=== PATIENT | male | born 1940 | race Caucasian/White ===

== ENCOUNTER → 2017-09-18 | Outpatient (CLI) | payer OTHER ==
[~2017-09-18] MED LIST: ASCO250T4 PO; CICL160A INH; CLC100X PO; CLTP PO; DTR/5 PO; FLM4 PO; IPRA17AE2 INH; LOSA1TAB PO; MELO7.5T5 PO; MULT-506 PO; PANT1TAB3 PO; POTA1080 PO; PSYL55.43 PO; SILD100T PO; TRAM-10 PO
--- NOTE | 2017-09-18 11:55 | DIAGNOSTIC IMAGING REPORT ---
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 FINDINGS: Bilateral renal calcifications. No change compared to the prior study. Multiple prosthetic calcifications also unchanged. No significant paravertebral calcifications. IMPRESSION: Bilateral nephrocalcinosis. No change from the prior exam. The above report was generated using voice recognition software. It may contain grammatical, syntax or spelling errors. Electronically signed by: Vern Cedillo M.D. 09/18/2017 11:53 AM Dictated Date/Time: 09/18/2017 11:52 AM
[2017-09-18 12:26] LABS: BLOOD UREA NITROGEN 17 mg/dl (7-18); BUN/CREATININE RATIO 16.6 (10-20); CREATININE 1.01 mg/dl (0.60-1.40)
[2017-09-18 12:30] LABS: PROSTATE SPECIFIC ANTIGEN 0.366 ng/ml (0.000-4.000)
== END | disposition home or self-care (01) ==
LOC: C.RAD 11:11
PROVIDERS: ATTEND Urology
DX: N20.0 Calculus of kidney (principal)

== ENCOUNTER 2017-10-13 09:00 | Emergency (ER) | payer OTHER ==
[~2017-10-13] VITALS: Ht 177.8 cm; Wt 84.8 kg
[2017-10-13 09:04] VITALS: TEMP 36.7; Ht 177.8 cm; Wt 84.8 kg
[2017-10-13] MEDS ORDERED: ONDANSETRON INJ 2 MG/ML 2 ML VIAL IV STA (09:42)
[2017-10-13] MEDS ORDERED: MoRPHine SULFATE 10 MG/ML CARP/VIAL IV STA (09:42)
[2017-10-13] MEDS ORDERED: SODIUM CHLORIDE 0.9% 500ML 500 ML IV STA (09:42)
[2017-10-13] MEDS ORDERED: VALA1TAB31 PO (09:51)
[2017-10-13] MEDS ORDERED: ADVIN25/60 INH (09:51)
[2017-10-13] MEDS ORDERED: PRS5 PO (09:51)
[2017-10-13] MEDS ORDERED: PRLSR20 PO (09:51)
[2017-10-13 10:32] LABS: BASO % 0.2 %; BASO ABS # 0.02 K/uL (0-0.2); EOS % 0.2 %; EOS ABS # 0.02 K/uL (0-0.5); HEMATOCRIT 48.1 % (42-52); HEMOGLOBIN 16.7 g/dL (14.0-18.0); IG# 0.03 K/uL (0.00-0.02); LYMPH % 14.2 %; LYMPH ABS # 1.36 K/uL (1.2-3.4); MEAN CELL VOLUME 96.8 fL (80-100); MEAN CORPUSCULAR HEMOGLOBIN 33.6 pg (25-34); MEAN CORPUSCULAR HGB CONC 34.7 g/dl (32-36); MEAN PLATELET VOLUME 10.9 fL (7.4-10.4); MONO % 7.4 %; MONO ABS # 0.71 K/uL (0.11-0.59); NEUT % 77.7 %; NEUT ABS # 7.47 K/uL (1.4-6.5); PLATELET COUNT 159 K/uL (130-400); RED CELL DISTRIBUTION WIDTH CV 13.6 % (11.5-14.5); RED CELL DISTRIBUTION WIDTH SD 48.6 fL (36.4-46.3); WHITE BLOOD COUNT 9.61 K/uL (4.8-10.8)
[2017-10-13 10:52] LABS: ALBUMIN 3.6 gm/dl (3.4-5.0); CALCIUM 8.8 mg/dl (8.5-10.1); CREATININE 1.05 mg/dl (0.60-1.40)
[2017-10-13 10:55] LABS: TOTAL PROTEIN 6.9 gm/dl (6.4-8.2)
--- NOTE | 2017-10-13 10:55 | DIAGNOSTIC IMAGING REPORT ---
CT OF THE ABDOMEN AND PELVIS WITHOUT CONTRAST, STONE PROTOCOL CLINICAL HISTORY: Severe left flank pain. COMPARISON STUDY: CT of the abdomen and pelvis January 05, 2016 and KUB September 18, 2017. TECHNIQUE: Helical axial images of the abdomen and pelvis were obtained without IV or oral contrast according to renal stone protocol. A dose lowering technique was utilized adhering to the principles of ALARA. FINDINGS: A 7 mm x 6 mm distal left ureteral calculus results in moderate left hydroureteronephrosis. This calculus is located 4.5 cm proximal to the left ureterovesical junction. There are no additional ureteral calculi. There are numerous bilateral renal calculi. The largest of these is a 1.2 cm right renal calculus. There is moderate left perinephric infiltration due to the obstruction. Visualized portions of the lower lungs demonstrate moderate emphysema. A few subpleural nodules are unchanged from earlier exams. These are benign given stability. Unenhanced images of the liver, spleen, adrenal glands and pancreas are unremarkable. There is no biliary ductal dilatation status post cholecystectomy. There is colonic diverticulosis without evidence for acute diverticulitis. No suspicious osseous lesions are present. Multilevel degenerative changes within the lumbar spine are noted. There are multiple old lower thoracic and upper lumbar spine compression deformities. IMPRESSION: 1. 7 mm x 6 mm distal left ureteral calculus which results in moderate left hydroureteronephrosis. 2. Bilateral nephrolithiasis. 3. Emphysema. Electronically signed by: William Gaona M.D. 10/13/2017 10:53 AM Dictated Date/Time: 10/13/2017 10:44 AM
[2017-10-13] MEDS ORDERED: ALBUTEROL 0.083% NEBU SOLN 3 ML VIAL INH STA (11:36)
[2017-10-13] MEDS ORDERED: OPTIRAY 320 IV PRN (12:00)
--- NOTE | 2017-10-13 13:47 | DIAGNOSTIC IMAGING REPORT ---
(CHEST FOR PE) ANGIO WITH CT DOSE: 473.20 mGy.cm HISTORY: Chest pain dyspnea TECHNIQUE: Multiaxial CT images of the chest were performed following the intravenous administration of contrast to evaluate the pulmonary arteries. Maximal intensity projection images were also obtained. A dose lowering technique was utilized adhering to the principles of ALARA. COMPARISON STUDY: 02/09/2013 FINDINGS: The pulmonary vasculature enhances appropriately. There are no significant filling defects. Pulmonary vasculature enhances appropriately. No major filling defects are appreciated. Bibasilar dependent atelectatic changes. A 6 millimeter pleural-based nodule right base laterally image 19. Calcified granuloma lingula unchanged in the prior study. Scattered atelectatic change in the mid to upper lung regions bilaterally. Mild Baseline emphysematous change unaltered. IMPRESSION: 1. No evidence for pulmonary embolus. 2. Bibasilar atelectatic change. 3. Lungs otherwise are clear. 4. 6 mm pleural-based nodule right base laterally with follow-up per Fleischner criteria. Please refer to below summary of Fleischner criteria recommendations for follow-up of incidental CT nodules (Espinoza Kuhn, Guidelines for management of small pulmonary nodules detected on CT scans: A statement from the Fleischner Society, Radiology 237: [phone].) SOLID NODULES Solitary nodule size: <6 mm * low risk patients: no follow-up needed * high risk patients: optional CT at 12 months Solitary nodule size: 6-8 mm * low risk patients: follow-up at 6-12 months, then consider further follow-up at 18-24 months * high risk patients: initial follow-up CT at 6-12 months and then at 18-24 months if no change Solitary nodule size: >8 mm * either low or high risk patients - consider follow-up CT at 3 months, and/or CT-PET, and/or biopsy Multiple nodules size: <6 mm * low risk patients: no routine follow-up * high risk patients: optional CT at 12 months Multiple nodules size: 6-8 mm * low risk patients: follow-up at 3-6 months, then consider further follow-up at 18-24 months * high risk patients: follow-up at 3-6 months, then at 18-24 months if no change Multiple nodules size: >8 mm * low risk patients: follow-up at 3-6 months, then consider further follow-up at 18-24 months * high risk patients: follow-up at 3-6 months, then at 18-24 months if no change Note: newly detected indeterminate nodule in persons 35 years of age or older. * low risk patients: minimal or absent history of smoking and/or other known risk factors * high risk patients: history of smoking or of other known risk factors (e.g. first degree relative with lung cancer, or exposure to asbestos, radon, uranium) * if a nodule up to 8 mm is partly solid or is ground glass further follow-up is required after 24 months to exclude possible slow growing adenocarcinoma (KATHIE) SUBSOLID NODULES Solitary pure ground-glass nodule * nodule size <6 mm - no CT follow-up required * nodule size >=6 mm - follow-up CT at 6-12 months, then every 2 years until 5 years Solitary part-solid nodule * nodule size <6 mm - no CT follow-up required * nodule size >=6 mm - follow-up CT at 3-6 months. If unchanged, and solid component remains <6 mm, then annual follow-up for 5 years Multiple subsolid nodules * nodule size <6 mm - follow-up CT at 3-6 months, consider further follow-up at 2 and 4 years if stable * nodule size >=6 mm - follow-up CT at 3-6 months, subsequent management based on the most suspicious nodule(s) The above report was generated using voice recognition software. It may contain grammatical, syntax or spelling errors. Electronically signed by: Vern Cedillo M.D. 10/13/2017 1:45 PM Dictated Date/Time: 10/13/2017 1:41 PM
[2017-10-13 13:50] VITALS: O2SAT 91
[2017-10-13] MEDS ORDERED: OXYC1TAB3 PO (15:24)
[2017-10-13] MEDS ORDERED: TAMS0.4C38 PO (15:24)
[2017-10-13] MEDS ORDERED: CIPROFLOXACIN 500 MG TAB PO STA (15:46)
[2017-10-13] MEDS ORDERED: CIPR-255 PO (15:55)
[2017-10-13 16:25] VITALS: BP 140/75; PULSE 78; O2SAT 96
--- NOTE | 2017-10-13 16:50 | EMERGENCY ROOM VISIT NOTE ---
History Report prepared by Obi: Lv Hardin Under the Supervision of: Bárbara RodríguezO. First contact with patient: 09:25 Chief Complaint: LEG PAIN,LEG INJURY Stated Complaint: PAIN IN HERNIA AND STING IN LEG (L) History of Present Illness The patient is a 77 year old male with a history of kidney stones who presents to the Emergency Room with complaints of persistent left-sided back pain that started this morning. He states that he started with left-sided abdominal pain 2 weeks ago, and he went to see his urologist last week, who said that the pain was probably due to a hernia. The patient says that the abdominal pain went away last night, but this morning, he started to have a constant severe pain on the left side of his back. He notes that nothing makes the pain better or worse , including movement, and his pain feels similar to his previous kidney stones. The patient denies any nausea, vomiting, fevers, cough, runny nose, chest pain, shortness of breath, or urinary symptoms. The patient notes a history of a cholecystectomy, but still has his appendix. Source of History: patient Onset: This morning Position: back (left) Symptom Intensity: severe Timing: constant, other (persistent) Associated Symptoms: No fevers, No cough, No chest pain, No SOB, No nausea, No vomiting, No diarrhea Note: Denies runny nose. Review of Systems See HPI for pertinent positives & negatives. A total of 10 systems reviewed and were otherwise negative. Past Medical & Surgical Medical Problems: (1) Back pain (2) Benign neoplasm of large bowel (3) BPH (benign prostatic hypertrophy) (4) COPD (chronic obstructive pulmonary disease) (5) GERD (gastroesophageal reflux disease) (6) H/O diverticulitis of colon (7) h/o vertebral fracture (8) Hypertension (9) Kidney stones (10) ZHANE (obstructive sleep apnea) (11) Osteoarthritis (12) Osteoporosis Surgical Problems: (1) H/o ankle surgery (2) S/P colonoscopy (3) S/p EGD Family History FH: cancer FATHER (RCC) MOTHER (colon CA) Social History Smoking Status: Never Smoker Alcohol Use: occasionally Drug Use: none Marital Status: Occupation Status: retired Current/Historical Medications Scheduled Ascorbic Acid (Vitamin C), Unknown Dose PO DAILY Ciclesonide (Alvesco), 1 PUFF INH DAILY Ciprofloxacin Hcl (Cipro), 500 MG PO BID Finasteride (Finasteride), 5 MG PO QAM Fluticasone Prop/Salmeterol (Advair Diskus 250/50 60 Dose), 1 PUFF INH BID Losartan Potassium (Cozaar), 25 MG PO DAILY Meloxicam (Mobic), 7.5 MG PO DAILY Multivitamin (Multivitamin), 1 TAB PO DAILY Omeprazole (Prilosec), 20 MG PO QAM Oxybutynin Chloride (Ditropan), 2 TABS PO HS Potassium Citrate (Urocit-K), 10 MEQ PO TID Sildenafil Citrate (Viagra), 100 MG PO UD Tamsulosin Hcl (Flomax *), 0.4 MG PO HS Tamsulosin Hcl (Flomax), 0.4 MG PO DAILY Valacyclovir Hcl (Valtrex), 1 GM PO TID Scheduled PRN Ipratropium [place] Hfa (Atrovent Hfa), 2 PUFFS INH QID PRN for SOB/Wheezing Oxycodone Immediate Rel Tab (Roxicodone Ir), 5 MG PO Q6H PRN for Pain Tramadol (Ultram), 1 TAB PO BID PRN for Pain Allergies Coded Allergies: No Known Allergies (Verified , 10/13/17) Physical Exam Vital Signs Date Time Temp Pulse Resp B/P (MAP) Pulse Ox O2 Delivery O2 Flow Rate FiO2 10/13/17 16:25 78 20 140/75 96 Room Air 10/13/17 15:11 66 20 161/88 95 Room Air 10/13/17 14:43 59 20 141/80 95 Nasal Cannula 2.0 10/13/17 14:00 93 Nasal Cannula 10/13/17 13:55 72 10/13/17 13:54 84 Room Air 10/13/17 13:50 72 16 129/69 90 Nasal Cannula 2.0 10/13/17 13:50 91 Nasal Cannula 2.0 10/13/17 11:37 68 20 119/94 90 Nasal Cannula 2.0 10/13/17 10:59 80 20 96/66 92 10/13/17 09:04 36.7 68 18 130/73 94 Room Air Physical Exam GENERAL: Sitting up in bed, holding left flank, in minimal distress. EYE EXAM: normal conjunctiva. OROPHARYNX: no exudate, no erythema, lips, buccal mucosa, and tongue normal and mucous membranes are moist NECK: supple, no nuchal rigidity, no adenopathy, non-tender LUNGS: Clear to auscultation. Normal chest wall mechanics HEART: no murmurs, S1 normal and S2 normal ABDOMEN: abdomen soft, non-tender, normo-active bowel sounds, no masses, no rebound or guarding. BACK: Back is symmetrical on inspection and there is no deformity, no midline tenderness, no CVA tenderness. SKIN: healing zoster rash T-4 to T-8 dermatome on right, with healing scabs UPPER EXTREMITIES: upper extremities are grossly normal. LOWER EXTREMITIES: No pitting edema. NEURO EXAM: Normal sensorium, cranial nerves II-XII grossly intact, normal speech, no gross weakness of arms, no gross weakness of legs. Medical Decision & Procedures ER Provider Diagnostic Interpretation: CT results as stated below per my review and the radiologist's interpretation: CT OF THE ABDOMEN AND PELVIS WITHOUT CONTRAST, STONE PROTOCOL CLINICAL HISTORY: Severe left flank pain. COMPARISON STUDY: CT of the abdomen and pelvis January 05, 2016 and [facility] September 18, 2017. TECHNIQUE: Helical axial images of the abdomen and pelvis were obtained without IV or oral contrast according to renal stone protocol. A dose lowering technique was utilized adhering to the principles of ALARA. FINDINGS: A 7 mm x 6 mm distal left ureteral calculus results in moderate left hydroureteronephrosis. This calculus is located 4.5 cm proximal to the left ureterovesical junction. There are no additional ureteral calculi. There are numerous bilateral renal calculi. The largest of these is a 1.2 cm right renal calculus. There is moderate left perinephric infiltration due to the obstruction. Visualized portions of the lower lungs demonstrate moderate emphysema. A few subpleural nodules are unchanged from earlier exams. These are benign given stability. Unenhanced images of the liver, spleen, adrenal glands and pancreas are unremarkable. There is no biliary ductal dilatation status post cholecystectomy. There is colonic diverticulosis without evidence for acute diverticulitis. No suspicious osseous lesions are present. Multilevel degenerative changes within the lumbar spine are noted. There are multiple old lower thoracic and upper lumbar spine compression deformities. IMPRESSION: 1. 7 mm x 6 mm distal left ureteral calculus which results in moderate left hydroureteronephrosis. 2. Bilateral nephrolithiasis. 3. Emphysema. Electronically signed by: William Gaona M.D. 10/13/2017 10:53 AM Dictated Date/Time: 10/13/2017 10:44 AM (CHEST FOR PE) ANGIO WITH CT DOSE: 473.20 mGy.cm HISTORY: Chest pain dyspnea TECHNIQUE: Multiaxial CT images of the chest were performed following the intravenous administration of contrast to evaluate the pulmonary arteries. Maximal intensity projection images were also obtained. A dose lowering technique was utilized adhering to the principles of ALARA. COMPARISON STUDY: 02/09/2013 FINDINGS: The pulmonary vasculature enhances appropriately. There are no significant filling defects. Pulmonary vasculature enhances appropriately. No major filling defects are appreciated. Bibasilar dependent atelectatic changes. A 6 millimeter pleural-based nodule right base laterally image 19. Calcified granuloma lingula unchanged in the prior study. Scattered atelectatic change in the mid to upper lung regions bilaterally. Mild Baseline emphysematous change unaltered. IMPRESSION: 1. No evidence for pulmonary embolus. 2. Bibasilar atelectatic change. 3. Lungs otherwise are clear. 4. 6 mm pleural-based nodule right base laterally with follow-up per Fleischner criteria. Please refer to below summary of Fleischner criteria recommendations for follow-up of incidental CT nodules (Espinoza Kuhn, Guidelines for management of small pulmonary nodules detected on CT scans: A statement from the Fleischner Society, Radiology 237: [phone].) SOLID NODULES Solitary nodule size: <6 mm * low risk patients: no follow-up needed * high risk patients: optional CT at 12 months Solitary nodule size: 6-8 mm * low risk patients: follow-up at 6-12 months, then consider further follow-up at 18-24 months * high risk patients: initial follow-up CT at 6-12 months and then at 18-24 months if no change Solitary nodule size: >8 mm * either low or high risk patients - consider follow-up CT at 3 months, and/or CT-PET, and/or biopsy Multiple nodules size: <6 mm * low risk patients: no routine follow-up * high risk patients: optional CT at 12 months Multiple nodules size: 6-8 mm * low risk patients: follow-up at 3-6 months, then consider further follow-up at 18-24 months * high risk patients: follow-up at 3-6 months, then at 18-24 months if no change Multiple nodules size: >8 mm * low risk patients: follow-up at 3-6 months, then consider further follow-up at 18-24 months * high risk patients: follow-up at 3-6 months, then at 18-24 months if no change Note: newly detected indeterminate nodule in persons 35 years of age or older. * low risk patients: minimal or absent history of smoking and/or other known risk factors * high risk patients: history of smoking or of other known risk factors (e.g. first degree relative with lung cancer, or exposure to asbestos, radon, uranium) * if a nodule up to 8 mm is partly solid or is ground glass further follow-up is required after 24 months to exclude possible slow growing adenocarcinoma (KATHIE) SUBSOLID NODULES Solitary pure ground-glass nodule * nodule size <6 mm - no CT follow-up required * nodule size >=6 mm - follow-up CT at 6-12 months, then every 2 years until 5 years Solitary part-solid nodule * nodule size <6 mm - no CT follow-up required * nodule size >=6 mm - follow-up CT at 3-6 months. If unchanged, and solid component remains <6 mm, then annual follow-up for 5 years Multiple subsolid nodules * nodule size <6 mm - follow-up CT at 3-6 months, consider further follow-up at 2 and 4 years if stable * nodule size >=6 mm - follow-up CT at 3-6 months, subsequent management based on the most suspicious nodule(s) The above report was generated using voice recognition software. It may contain grammatical, syntax or spelling errors. Electronically signed by: Vern Cedillo M.D. 10/13/2017 1:45 PM Dictated Date/Time: 10/13/2017 1:41 PM Laboratory Results 10/13/17 10:10 Red Blood Count 4.97, Mean Corpuscular Volume 96.8, Mean Corpuscular Hemoglobin 33.6, Mean Corpuscular Hemoglobin Concent 34.7, Mean Platelet Volume 10.9, Neutrophils (%) (Auto) 77.7, Lymphocytes (%) (Auto) 14.2, Monocytes (%) (Auto) 7.4, Eosinophils (%) (Auto) 0.2, Basophils (%) (Auto) 0.2, Neutrophils # (Auto) 7.47, Lymphocytes # (Auto) 1.36, Monocytes # (Auto) 0.71, Eosinophils # (Auto) 0.02, Basophils # (Auto) 0.02 10/13/17 10:10 Test 10/13/17 10:10 10/13/17 11:51 10/13/17 15:00 White Blood Count 9.61 K/uL (4.8-10.8) Red Blood Count 4.97 M/uL (4.7-6.1) Hemoglobin 16.7 g/dL (14.0-18.0) Hematocrit 48.1 % (42-52) Mean Corpuscular Volume 96.8 fL (80-100) Mean Corpuscular Hemoglobin 33.6 pg (25-34) Mean Corpuscular Hemoglobin Concent 34.7 g/dl (32-36) Platelet Count 159 K/uL (130-400) Mean Platelet Volume 10.9 fL (7.4-10.4) Neutrophils (%) (Auto) 77.7 % Lymphocytes (%) (Auto) 14.2 % Monocytes (%) (Auto) 7.4 % Eosinophils (%) (Auto) 0.2 % Basophils (%) (Auto) 0.2 % Neutrophils # (Auto) 7.47 K/uL (1.4-6.5) Lymphocytes # (Auto) 1.36 K/uL (1.2-3.4) Monocytes # (Auto) 0.71 K/uL (0.11-0.59) Eosinophils # (Auto) 0.02 K/uL (0-0.5) Basophils # (Auto) 0.02 K/uL (0-0.2) RDW Standard Deviation 48.6 fL (36.4-46.3) RDW Coefficient of Variation 13.6 % (11.5-14.5) Immature Granulocyte % (Auto) 0.3 % Immature Granulocyte # (Auto) 0.03 K/uL (0.00-0.02) Urine Renal Epithelial Cells 0-5 /lpf (0-5) Urine Crystals CALCIUM OXALATE (NONE Urine Mucus PRESENT (NONE PRSENT) Anion Gap 8.0 mmol/L (3-11) Est Creatinine Clear Calc Drug Dose 59.9 ml/min Estimated GFR () 78.4 Estimated GFR (Non- 67.7 BUN/Creatinine Ratio 17.8 (10-20) Calcium Level 8.8 mg/dl (8.5-10.1) Total Bilirubin 0.8 mg/dl (0.2-1) Direct Bilirubin 0.1 mg/dl (0-0.2) Aspartate Amino Transf (AST/SGOT) 23 U/L (15-37) Alanine Aminotransferase (ALT/SGPT) 35 U/L (12-78) Alkaline Phosphatase 70 U/L (45-117) Total Protein 6.9 gm/dl (6.4-8.2) Albumin 3.6 gm/dl (3.4-5.0) Lipase 69 U/L (73-393) Venous Blood pH 7.36 (7.36-7.41) Venous Blood Partial Pressure CO2 44 mmHg (38.0-50.0) Venous Blood Partial Pressure O2 42 mmHg Venous Blood HCO3 24 mmol/L Venous Blood Oxygen Saturation 73.1 % Venous Blood Base Excess -1.3 mEq/L Urine Color YELLOW Urine Appearance CLEAR (CLEAR) Urine pH 5.0 (4.5-7.5) Urine Specific [place] > 1.045 (1.000-1.030) Urine Protein TRACE (NEG) Urine Glucose (UA) NEG (NEG) Urine Ketones 1+ (NEG) Urine Occult Blood 3+ (NEG) Urine Nitrite NEG (NEG) Urine Bilirubin NEG (NEG) Urine Urobilinogen NEG (NEG) Urine Leukocyte Esterase TRACE (NEG) Urine WBC (Auto) 5-10 /hpf (0-5) Urine RBC (Auto) >30 /hpf (0-4) Urine Hyaline Casts (Auto) 10-30 /lpf (0-5) Urine Epithelial Cells (Auto) 5-10 /lpf (0-5) Urine Bacteria (Auto) NEG (NEG) Laboratory results per my review. Medications Administered Medications (Trade) Dose Ordered Sig/Rosalinda Route Start Time Stop Time Status Last Admin Dose Admin Sodium Chloride 500 ml @ 999 mls/hr Q31M STAT IV 10/13/17 09:42 10/13/17 10:12 DC 10/13/17 10:02 999 MLS/HR Morphine Sulfate (MoRPHine SULFATE INJ) 6 mg NOW STAT IV 10/13/17 09:42 10/13/17 09:44 DC 10/13/17 10:04 6 MG Ondansetron HCl (Zofran Inj) 4 mg NOW STAT IV 10/13/17 09:42 10/13/17 09:44 DC 10/13/17 10:03 4 MG Albuterol Sulfate (Ventolin 0.083% 2.5MG/3ML Neb) 2.5 mg NOW STAT INH 10/13/17 11:36 10/13/17 11:37 DC 10/13/17 11:41 2.5 MG Methylprednisolone Sodium Succinate (Solu-Medrol IV) 40 mg NOW STAT IV 10/13/17 13:57 10/13/17 13:58 DC 10/13/17 16:30 40 MG Ciprofloxacin (Cipro Tab) 500 mg NOW STAT PO 10/13/17 15:46 10/13/17 15:47 DC 10/13/17 16:26 500 MG ED Course ED COURSE: Vital signs were reviewed and showed normal vitals. The patients medical record was reviewed The above diagnostic studies were performed and reviewed. ED treatments and interventions as stated above. 0936: The patient was evaluated in room B3B. A complete history and physical examination was performed. 0942: Ordered Zofran Inj 4 mg IV, Morphine Sulfate Inj 6 mg IV, NSS 500 ml @ 999 mls/hr IV. 1101: I reevaluated the patient and he has no complaints but is hypoxic. 1136: Ordered Ventolin 0.083% 2.5MG/3ML Neb 2.5 mg INH. 1357: Ordered Solu-Medrol IV 40 mg IV. 1411: I discussed the patient with Dr. Pate - pulmonology - he recommended hospitalization. 1412: Upon reevaluation, the patient is resting. I discussed my findings with the patient and he understands and agrees with the treatment plan. Based on the patients age, coexisting illnesses, exam and lab findings the decision to treat as an inpatient was made. The patient remained stable while under my care. The patient will be evaluated for further management. 1425: I reviewed the patient's case with Lida Lau. She will evaluate the patient for further management. 1524: The patient was seen by Lida Cee - pulse ox was placed on the ear, and a good wave form was noted. The patient is not hypoxic. Lida Cee recommends discharge, and treatment as an outpatient. The patient is agreeable, and will be discharged. 1546: Ordered Cipro Tab 500 mg PO. 1557: I reevaluated the patient and he is resting comfortably. I discussed my findings with the patient and he understands and agrees with the treatment plan. Based on the patients age, coexisting illnesses, exam and lab findings the decision to treat as an outpatient was made. The patient is discharged. Medical Decision Differential diagnoses includes but is not limited to gastritis, peptic ulcer disease, GERD, gallbladder disease, pancreatitis, small bowel obstruction, acute coronary syndrome, pericarditis, ischemic bowel, irritable bowel disease, irritable bowel syndrome, appendicitis, diverticulitis, malignancy, hernia, urinary tract infection, torsion, perforation, trauma, infectious. Patient is a 77-year-old male who presents to ER for left flank pain which started last night. He notes that it feels his previous kidney stones. No dysuria, urgency or frequency. No fevers. CT shows an 8 x 7 distal left ureteral stone with moderate [place]. CBC, BMP, LFTs, bilirubin lipase is normal. Initial UA was contaminated. Repeat had epithelial cells 5-10 white cells. I do not leave that this is consistent with an infection. He was covered briefly with Cipro. On multiple re-evaluations he was having be hypoxic. He had no chest pain or shortness breath. CT PE was performed and showed significant emphysema. This discuss with pulmonology. They agreed with observation. Discussed with internal medicine. Just prior to evaluation pulse ox was placed on the year. He had a great waveform and pulse ox was 93-95%. He is not on any oxygen. I do favor that he likely has poor perfusion of his digits. He is completely asymptomatic. VBG was unremarkable. Patient family were updated bedside. He was discharged follow-up with PCP and urology as an outpatient. Patient was discharged with Flomax instructed not to take with Viagra, oxycodone and Cipro. Discussed with Pt concerning signs and symptoms to watch out for. Pt was instructed to follow up with their PCP and discussed with the patient their option to return to the ED at anytime for persistent or worsening symptoms. The appropriate anticipatory guidance and out-patient management, including indications for return to the emergency department, were explained at length to the patient and understood. Medication Reconcilliation Current Medication List: was personally reviewed by me Blood Pressure Screening Patient's blood pressure: Normal blood pressure Consults Time Called: 1420 Consulting Physician: Lida Lau Returned Call: 1429 reviewed the patient's case with Lida Lau. She will evaluate the patient for further management. Additional Consults: Time Called: 1408 Consulted Physician: Dr. Pate - pulmonology Returned Call: [phone] Additional Comments: I discussed the patient with Dr. Pate - pulmonology - he recommended hospitalization. Impression Primary Impression: Renal colic Additional Impressions: Hydronephrosis Emphysema lung Scribe Attestation The scribe's documentation has been prepared under my direction and personally reviewed by me in its entirety. I confirm that the note above accurately reflects all work, treatment, procedures, and medical decision making performed by me. Departure Information Dispostion Home / Self-Care Prescriptions Ciprofloxacin Hcl (CIPRO) 500 Mg Tab 500 MG PO BID, #14 TAB Prov: Alek Cook, DO 10/13/17 Tamsulosin Hcl (FLOMAX) 0.4 Mg Cap 0.4 MG PO DAILY, #10 CAP Prov: Alek Cook, DO 10/13/17 Oxycodone Immediate Rel Tab (ROXICODONE IR) 5 Mg Tab 5 MG PO Q6H Y for Pain, #15 TAB Prov: Alek Cook, DO 10/13/17 Referrals Teofilo Krishnamurthy D.OShira (PCP) Patient Instructions ED Stone Renal W Colic, [facility] Additional Instructions Please follow up with your primary care doctor with in the next 24 hours. Any worsening of your symptoms, please return to the ED immediately. This includes any fevers greater than 100.4, worsening pain, chest pain, shortness breath, persistent nausea, vomiting, unable to eat or drink, or any other concerning signs or symptoms from your standpoint. You were given medications during this visit that will inhibit your ability to drive, operate machinery and work. Please do NOT drive, operate machinery or work for the next 12hrs. You were also given a prescription for a narcotic. While taking this medication you should also not drive, operate machinery and or work. Do not take pain medications in combination with any other narcotics or Ultram. Do not take Flomax in combination with Viagra. Please follow up with urology within the next week. Problem Qualifiers Additional Impressions: Hydronephrosis Hydronephrosis type: with renal calculous obstruction Qualified Codes: N13.2 - Hydronephrosis with renal and ureteral calculous obstruction Emphysema lung Emphysema type: unspecified Qualified Codes: J43.9 - Emphysema, unspecified
== END 2017-10-13 16:37 | disposition home or self-care (01) ==
LOC: C.EDB 09:01
DX: N13.2 Hydronephrosis with renal and ureteral calculous obstruction (principal); J43.9 Emphysema, unspecified; I10 Essential (primary) hypertension; J44.9 Chronic obstructive pulmonary disease, unspecified; K21.9 Gastro-esophageal reflux disease without esophagitis; K57.30 Diverticulosis of large intestine without perforation or abscess without bleeding; G47.33 Obstructive sleep apnea (adult) (pediatric); M81.0 Age-related osteoporosis without current pathological fracture; M19.90 Unspecified osteoarthritis, unspecified site; Z87.442 Personal history of urinary calculi; Z85.038 Personal history of other malignant neoplasm of large intestine; Z79.899 Other long term (current) drug therapy; Z87.81 Personal history of (healed) traumatic fracture; Z98.890 Other specified postprocedural states; Z80.9 Family history of malignant neoplasm, unspecified

== ENCOUNTER → 2017-10-15 | Outpatient (CLI) | payer OTHER ==
[~2017-10-15] MED LIST changes: +ADVIN25/60 INH; +ASCO500T16 PO; +ATRIN INH; +CALC600T9 PO; +CIPR-255 PO; -CLC100X PO; -CLTP PO; +FLUT1AER5 INH; +OXYC1TAB3 PO; -PANT1TAB3 PO; +PRLSR20 PO; +PRS5 PO; -PSYL55.43 PO; +TAMS0.4C38 PO; +URC10 PO; +VALA1TAB31 PO
--- NOTE | 2017-10-15 14:05 | DIAGNOSTIC IMAGING REPORT ---
[facility] CLINICAL HISTORY: N20.0 Nephrolithiasis COMPARISON STUDY: CT scan dated 10/13/2017 FINDINGS: Lower pelvic calcifications are felt to represent prostatic calcifications. There are multiple bilateral renal calculi. The 2 largest in the right measure 10 mm 11 mm respectively. The largest on the left measures 4 mm. There is a new left pelvic basin calcification measuring 6 mm. This is suspicious for distal left ureteral calculus. IMPRESSION: 1. Bilateral nephrolithiasis 2. New 6 mm left pelvic basin calcification. This is consistent with the patient's known distal left ureteral calculus Electronically signed by: Tuan Liu M.D. 10/15/2017 2:04 PM Dictated Date/Time: 10/15/2017 2:01 PM
== END | disposition home or self-care (01) ==
LOC: C.RAD 13:39
PROVIDERS: ATTEND Urology
DX: N20.0 Calculus of kidney (principal)

== ENCOUNTER → 2017-10-19 | Outpatient (CLI) | payer OTHER ==
[~2017-10-19] MED LIST changes: -ADVIN25/60 INH; -ASCO250T4 PO; -CICL160A INH; -FLM4 PO; -IPRA17AE2 INH; -MULT-506 PO; -OXYC1TAB3 PO; -POTA1080 PO
--- NOTE | 2017-10-19 14:26 | DIAGNOSTIC IMAGING REPORT ---
[facility] CLINICAL HISTORY: Nephrolithiasis. FINDINGS: 2 AP supine abdominal radiograph are compared to study dated 10/15/2017 and correlated with abdominal CT dated 10/13/2017. There is a nonobstructed abdominal bowel gas pattern noting moderate colonic fecal retention. Cholecystectomy clips are identified. There are 2 large nonobstructing right renal calculi which measure 12 mm and 13 mm. Additional smaller nonobstructing calculi are seen bilaterally. A 5 mm calcification projects over the left proximal ureter just below the transverse process of L2. The distal left ureteral calculus is seen on 10/15/2017 is no longer apparent. Prostatic calcifications are seen in the pelvis. The skeletal structures are osteopenic. Lumbosacral spondylosis is observed. IMPRESSION: 1. The distal left ureteral calculus seen on 10/15/2018 is no longer identified. 2. A 5 mm calculus projects over the left proximal ureter below the transverse process of L2. This may represent an obstructing ureteral stone. 3. Additional bilateral nonobstructing calculi are similar to previous. 4. Moderate constipation. Electronically signed by: Colt Murrell M.D. 10/19/2017 2:24 PM Dictated Date/Time: 10/19/2017 2:21 PM
== END | disposition home or self-care (01) ==
LOC: C.RAD 14:01
PROVIDERS: ATTEND Urology
DX: N20.2 Calculus of kidney with calculus of ureter (principal)

== ENCOUNTER → 2017-10-22 | Outpatient (CLI) | payer OTHER ==
[~2017-10-22] MED LIST changes: +PRED-603 PO
--- NOTE | 2017-10-22 14:16 | DIAGNOSTIC IMAGING REPORT ---
[facility] CLINICAL HISTORY: N20.0 Nephrolithiasis COMPARISON STUDY: 10/19/2017 FINDINGS: There is no pathologic bowel dilatation. There are right upper quadrant surgical clips consistent with a prior cholecystectomy. There are multiple right renal calculi, the 2 largest of which measure 12 mm 11 mm. Multiple punctate left renal calculi are also visualized. There is a 3 mm calcification located adjacent to the left L2 transverse process. This may represent a proximal left ureteral calculus. There are multiple prostatic calcifications. IMPRESSION: 1. Bilateral nephrolithiasis 2. Possible 3 mm proximal left ureteral calculus at the L2 level Electronically signed by: Tuan Liu M.D. 10/22/2017 2:14 PM Dictated Date/Time: 10/22/2017 2:12 PM
== END | disposition home or self-care (01) ==
LOC: C.RAD 13:50
PROVIDERS: ATTEND Urology
DX: N20.0 Calculus of kidney (principal)

== ENCOUNTER → 2017-10-23 | Day surgery (SDC) | payer OTHER ==
[2017-10-16 14:56] VITALS: Ht 177.8 cm; Wt 81.8 kg
[~2017-10-23] VITALS: Ht 177.8 cm; Wt 81.8 kg
[~2017-10-23] MED LIST changes: +CIPROFLOXACIN 400MG / D5W IV SCH; +LACTATED RINGER'S 1000ML 1,000 ML IV SCH
[2017-10-23 06:37] VITALS: BP 167/84; PULSE 54; TEMP 37; O2SAT 93
== END | disposition home or self-care (01) ==
LOC: X.SURG 06:14
PROVIDERS: ATTEND Urology
DX: N20.0 Calculus of kidney (principal); Z53.9 Procedure and treatment not carried out, unspecified reason

== ENCOUNTER → 2017-10-30 | Outpatient (CLI) | payer OTHER ==
[~2017-10-30] MED LIST changes: -CIPR-255 PO; -CIPROFLOXACIN 400MG / D5W IV SCH; -LACTATED RINGER'S 1000ML 1,000 ML IV SCH; -VALA1TAB31 PO
--- NOTE | 2017-10-30 09:02 | DIAGNOSTIC IMAGING REPORT ---
K[facility] CLINICAL HISTORY: N20.0 Calculus of [id number] nephrocalcinosis COMPARISON STUDY: 10/22/2017 FINDINGS: Bilateral nephrocalcinosis unchanged. The calcification produces described at the level of L2 on the left is not easily appreciated currently. Multiple prosthetic calcifications are present. Bowel pattern is nonobstructive. IMPRESSION: 1. Unchanged bilateral nephrocalcinosis. 2. Left paravertebral calcification at L2 previously described is not appreciated currently The above report was generated using voice recognition software. It may contain grammatical, syntax or spelling errors. Electronically signed by: Vern Cedillo M.D. 10/30/2017 9:00 AM Dictated Date/Time: 10/30/2017 8:59 AM
== END | disposition home or self-care (01) ==
LOC: C.RAD1850 08:30
PROVIDERS: ATTEND Urology
DX: N20.0 Calculus of kidney (principal); E83.59 Other disorders of calcium metabolism; N29 Other disorders of kidney and ureter in diseases classified elsewhere

== ENCOUNTER → 2017-10-30 | Day surgery (SDC) | payer OTHER ==
[2017-10-26 15:08] VITALS: Ht 177.8 cm; Wt 81.8 kg
[~2017-10-30] VITALS: Ht 177.8 cm; Wt 81.8 kg
[~2017-10-30] MED LIST changes: +ATROPINE SULFATE 0.1 MG/ML 5ML SYR IV PRN; +CIPROFLOXACIN 400MG / D5W IV SCH; +DEXAMETHASONE SOD INJ 4 MG/ML VIAL IV PRN; +DEXAMETHASONE SOD INJ 4 MG/ML VIAL ONE; +EpHEDrine SULFATE INJ 50 MG/ML AMP IV PRN; +FENTANYL CITRATE INJ 50 MCG/1 ML 2 ML VIAL IV PRN; +FENTANYL CITRATE INJ 50 MCG/1 ML 2 ML VIAL ONE; +KETOROLAC TROMETHAMINE 15 MG/ML VIAL IV. PRN; +LABETALOL HCL IV 5 MG/ML 20ML IV PRN; +LACTATED RINGER'S 1000ML 1,000 ML IV SCH; +LIDOCAINE HCL 2% 2 ML VIAL (20MG/ML) ONE; +METOCLOPRAMIDE HCL INJ 5 MG/ML 2 ML VIAL IV PRN; +MIDAZOLAM HCL 1 MG/ML 2ML VIAL ONE; +MoRPHine SULFATE 10 MG/ML CARP/VIAL IV PRN; +ONDANSETRON INJ 2 MG/ML 2 ML VIAL IV PRN; +ONDANSETRON INJ 2 MG/ML 2 ML VIAL ONE; +OXYCODONE/ACETAMINOPHEN 5-325 TAB PO PRN; +PHENYLEPHRINE 100MCG/ML 5ML SYR IV PRN; +PROPOFOL IV EMULSION 10 MG/ML 20 ML VIAL IV ONE
--- NOTE | 2017-10-30 10:25 | History & Physical Bridge - [place] ---
H&P Re-Evaluation Bridge Note: I have examined the patient, reviewed the History & Physical and in the interval since the performance of the History & Physical I have noted the following changes of clinical significance: Patient passed left ureteral stone. Has large stones on right kidney. Plan to treat right stone.
--- NOTE | 2017-10-30 10:42 | Discharge Instructions ---
Discharge Instructions Date of Service Oct 30, 2017. Admission Reason for Admission: Stones Discharge Discharge Diagnosis / Problem: Right Stone Discharge Goals Goal(s): Decrease discomfort, Improve function Activity Recommendations Activity Limitations: resume your previous activity Lifting Limitations: gradually increase as tolerated Exercise/Sports Limitations: gradually increase as tolerated Shower/Bathe: no limitations . Instructions / Follow-Up Instructions / Follow-Up May have blood in urine. May have pelvic discomfort, flank pain, or bruising. Call if any fevers or chills. Current Hospital Diet Patient's current hospital diet: Discharge Diet Recommended Diet: Regular Diet Procedures Procedures Performed: Right ESWL Pending Studies Studies pending at discharge: no Medical Emergencies . Who to Call and When: Medical Emergencies: If at any time you feel your situation is an emergency, please call 911 immediately. . Non-Emergent Contact Non-Emergency issues call your: Primary Care Provider, Urologist Call Non-Emergent contact if: temperature is above 101, temperature is above 101.5, your pain is not controlled, your pain is worsening . . "Provider Documentation" section prepared by Sergey Montoya,. . VTE Core Measure Inpt VTE Proph given/why not?: SCD's
--- NOTE | 2017-10-30 11:50 | [facility] Operative Report ---
Operative Report Operative Date Oct 30, 2017. Pre-Operative Diagnosis Right Stones Post-Operative Diagnosis Right ESWL Procedure(s) Performed Same Surgeon Jan Mobile Manager Surgeon(s) Same Estimated Blood Loss None Findings Two large stones on right approx 1 cm each with approx 5mm stone as well on right. Specimens None Anesthesia General Complication(s) None Disposition Recovery Room / PACU Indications Large stones on right with long history of stones. Risks and benefits discussed. Description of Procedure Patient was consented and brought back to the operating room. Patient was placed under anesthesia in the supine position. Patient was prepped and draped in the regular sterile fashion. A time out was completed. With the time out completed, The patient was assessed with fluoroscopy. The stones were identified and position was triangulated. At this point, the shock waves commenced. The stone was monitored throughout the process with fluoroscopy to assess progression and maintain position. With the first stone treated, attention was taken to the lower pole stone. This stone was triangulated and also treated to small fragments. The two stones were pulverized with a total of 2500 shocks at a maximum voltage of 5 with a total fluoroscopic time of 1:35. With the stones treated, the procedure ended. The patient was cleaned, aroused from anesthesia, and transferred to the pacu in stable condition having tolerated the procedure well with no complications. I was present and participated in all aspects of the procedure. The patient will be monitored in the PACU until transferred. I attest to the content of the Intraoperative Record and any orders documented therein. Any exceptions are noted below.
[2017-10-30 12:32] VITALS: TEMP 36.9
--- NOTE | 2017-10-30 12:53 | Anesthesia Progress Nt - [facility] ---
Anesthesia Post Op Note Date & Time Oct 30, 2017 at 12:53 Vital Signs Pain Intensity: 0 Vital Signs Past 12 Hours Date Time Temp Pulse Resp B/P (MAP) Pulse Ox O2 Delivery O2 Flow Rate FiO2 10/30/17 12:32 36.9 56 20 157/88 (111) 94 Room Air 10/30/17 12:26 36.6 54 18 151/85 96 Room Air 10/30/17 12:22 58 25 10/30/17 12:22 57 25 173/68 95 10/30/17 12:17 63 18 152/86 96 10/30/17 12:17 63 18 10/30/17 12:12 54 14 10/30/17 12:12 54 14 99 10/30/17 12:11 144/74 10/30/17 12:07 56 13 10/30/17 12:07 56 13 98 10/30/17 12:06 153/82 10/30/17 12:02 53 15 98 10/30/17 12:02 54 15 10/30/17 12:01 133/81 10/30/17 12:00 55 14 10/30/17 12:00 56 14 98 10/30/17 11:56 124/82 10/30/17 11:55 36.7 53 16 124/82 98 Mask 5 10/30/17 09:02 36.4 61 18 175/88 (117) 95 Room Air Notes Mental Status: alert / awake / arousable, participated in evaluation Pt Amnestic to Procedure: Yes Nausea / Vomiting: adequately controlled Pain: adequately controlled Airway Patency, RR, SpO2: stable & adequate BP & HR: stable & adequate Hydration State: stable & adequate Anesthetic Complications: no major complications apparent
[2017-10-30 12:58] VITALS: BP 160/88; PULSE 55; O2SAT 96
== END | disposition home or self-care (01) ==
LOC: X.SURG 08:45
PROVIDERS: ATTEND Urology
DX: N20.0 Calculus of kidney (principal); N40.0 Benign prostatic hyperplasia without lower urinary tract symptoms; I10 Essential (primary) hypertension; J44.9 Chronic obstructive pulmonary disease, unspecified; Z99.89 Dependence on other enabling machines and devices; M19.90 Unspecified osteoarthritis, unspecified site; K21.0 Gastro-esophageal reflux disease with esophagitis; K57.90 Diverticulosis of intestine, part unspecified, without perforation or abscess without bleeding; G47.33 Obstructive sleep apnea (adult) (pediatric); M81.0 Age-related osteoporosis without current pathological fracture; Z86.010 Personal history of colon polyps; Z90.49 Acquired absence of other specified parts of digestive tract; Z87.891 Personal history of nicotine dependence; Z80.0 Family history of malignant neoplasm of digestive organs; Z84.1 Family history of disorders of kidney and ureter

== ENCOUNTER → 2017-11-25 | Outpatient (CLI) | payer OTHER ==
[~2017-11-25] MED LIST changes: -ATROPINE SULFATE 0.1 MG/ML 5ML SYR IV PRN; -CIPROFLOXACIN 400MG / D5W IV SCH; -DEXAMETHASONE SOD INJ 4 MG/ML VIAL IV PRN; -DEXAMETHASONE SOD INJ 4 MG/ML VIAL ONE; -EpHEDrine SULFATE INJ 50 MG/ML AMP IV PRN; -FENTANYL CITRATE INJ 50 MCG/1 ML 2 ML VIAL IV PRN; -FENTANYL CITRATE INJ 50 MCG/1 ML 2 ML VIAL ONE; -KETOROLAC TROMETHAMINE 15 MG/ML VIAL IV. PRN; -LABETALOL HCL IV 5 MG/ML 20ML IV PRN; -LACTATED RINGER'S 1000ML 1,000 ML IV SCH; -LIDOCAINE HCL 2% 2 ML VIAL (20MG/ML) ONE; -METOCLOPRAMIDE HCL INJ 5 MG/ML 2 ML VIAL IV PRN; -MIDAZOLAM HCL 1 MG/ML 2ML VIAL ONE; -MoRPHine SULFATE 10 MG/ML CARP/VIAL IV PRN; -ONDANSETRON INJ 2 MG/ML 2 ML VIAL IV PRN; -ONDANSETRON INJ 2 MG/ML 2 ML VIAL ONE; -OXYCODONE/ACETAMINOPHEN 5-325 TAB PO PRN; -PHENYLEPHRINE 100MCG/ML 5ML SYR IV PRN; -PROPOFOL IV EMULSION 10 MG/ML 20 ML VIAL IV ONE
== END | disposition home or self-care (01) ==
LOC: C.LABSPEC 11:22
PROVIDERS: ATTEND Urology
DX: N20.0 Calculus of kidney (principal)

== ENCOUNTER → 2017-12-29 | Outpatient (CLI) | payer OTHER ==
--- NOTE | 2017-12-29 11:19 | DIAGNOSTIC IMAGING REPORT ---
KUB CLINICAL HISTORY: Intubated sexual excitement. Nephrolithiasis. FINDINGS: An AP supine abdominal radiograph is compared to study dated 10/30/2017 and correlated with abdominal CT dated 10/13/2017. Cholecystectomy clips are seen in the right upper quadrant. There is a nonobstructed abdominal bowel gas pattern noting moderate to severe colonic fecal retention. The right renal shadow is largely obscured by overlying colonic contents. There are numerous (at least 4) nonobstructing right renal calculi which measure up to 6 mm. There is at least 1 nonobstructing left renal calculus which measures up to 3 mm. No calcifications are seen projecting over the ureters. Prostatic calcifications are seen in the pelvis. The skeletal structures are osteopenic. Lumbosacral spondylosis is observed. IMPRESSION: 1. Moderate to severe constipation is identified and partially obscures the renal shadows. 2. Bilateral nephrolithiasis. Electronically signed by: Colt Murrell M.D. 12/29/2017 11:18 AM Dictated Date/Time: 12/29/2017 11:15 AM
== END | disposition home or self-care (01) ==
LOC: C.RAD 10:52
PROVIDERS: ATTEND Urology
DX: F52.8 Other sexual dysfunction not due to a substance or known physiological condition (principal); K59.00 Constipation, unspecified; N20.0 Calculus of kidney

== ENCOUNTER → 2018-04-30 | Outpatient (CLI) | payer OTHER ==
[~2018-04-30] MED LIST changes: +DOCU-94 PO; +SYMIN160 INH; +WHEAPOW13 PO
--- NOTE | 2018-04-30 10:53 | DIAGNOSTIC IMAGING REPORT ---
KUB HISTORY: Right-sided flank pain. COMPARISON: KUB 12/29/2017. FINDINGS: The bowel gas pattern is unremarkable. There are no dilated loops of small bowel to suggest an obstruction. Prior cholecystectomy. Bilateral nephrolithiasis, right greater than left. Dominant stone within the lower pole of the right kidney measures 6 mm. Vascular calcifications are noted within the pelvis. No definite ureteral calculi. Advanced degenerative changes within the upper lumbar spine, unchanged. Calcifications overlying the sacrum are likely vascular. No pneumoperitoneum or pneumatosis. IMPRESSION: Bilateral nephrolithiasis. No definite ureteral calculi. Electronically signed by: Joby Salazar M.D. 04/30/2018 10:52 AM Dictated Date/Time: 04/30/2018 10:50 AM
== END | disposition home or self-care (01) ==
LOC: C.RAD 09:57
PROVIDERS: ATTEND Urology
DX: N20.0 Calculus of kidney (principal)

== ENCOUNTER → 2018-05-03 | Outpatient (CLI) | payer OTHER ==
--- NOTE | 2018-05-03 15:20 | DIAGNOSTIC IMAGING REPORT ---
CHEST 2 VIEWS ROUTINE CLINICAL HISTORY: N20.0 [id number] PREOPERATIVE CHEST COMPARISON STUDY: 01/05/2016 FINDINGS: The cardiac and mediastinal contours remain stable. There is no focal pulmonary consolidation. There is no failure. There are no pleural effusions. There is a calcified left hilar lymph node. There is a calcified left lower lobe granuloma.[ IMPRESSION: No active disease in the chest. Electronically signed by: Tuan Liu M.D. 05/03/2018 3:18 PM Dictated Date/Time: 05/03/2018 3:18 PM
[2018-05-03 17:01] LABS: BLOOD UREA NITROGEN 14 mg/dl (7-18); CARBON DIOXIDE 25 mmol/L (21-32); CREATININE 0.97 mg/dl (0.60-1.40); POTASSIUM 3.8 mmol/L (3.5-5.1); SODIUM 138 mmol/L (136-145)
== END | disposition home or self-care (01) ==
LOC: C.RAD 14:34
PROVIDERS: ATTEND Urology
DX: N20.0 Calculus of kidney (principal)

== ENCOUNTER → 2018-05-27 | Outpatient (CLI) | payer OTHER ==
[~2018-05-27] MED LIST changes: -FLUT1AER5 INH; +OXYC-57 PO; -PRED-603 PO
--- NOTE | 2018-05-27 18:10 | DIAGNOSTIC IMAGING REPORT ---
KUB CLINICAL HISTORY: 78 years-old Male presenting with N20.0 Nephrolithiasis BE DONE EITHER THE NIGHT BEFORE OR MORNING. TECHNIQUE: Single supine view of the abdomen was obtained. COMPARISON: 04/30/2018. FINDINGS: Cholecystectomy clips noted. Nonobstructive bowel gas pattern. No gross pneumoperitoneum. Redemonstration of bilateral nephrolithiasis with a greater stone burden on the right. No radiographic evidence of ureteral calculi. Atherosclerotic calcifications again noted. Prostatic calcifications suggested. Degenerative changes of the spine. Lung bases clear. IMPRESSION: 1. Redemonstration of bilateral nephrolithiasis. No radiographic evidence of ureteral calculi. Electronically signed by: Jim Méndez M.D. 05/27/2018 6:09 PM Dictated Date/Time: 05/27/2018 6:07 PM
== END | disposition home or self-care (01) ==
LOC: C.RAD 17:42
PROVIDERS: ATTEND Urology
DX: N20.0 Calculus of kidney (principal)

== ENCOUNTER → 2018-05-28 | Day surgery (SDC) | payer OTHER ==
[2018-05-05 10:45] VITALS: Ht 180.3 cm; Wt 84.1 kg
[~2018-05-28] VITALS: Ht 180.3 cm; Wt 84.1 kg
[~2018-05-28] MED LIST changes: +ATROPINE SULFATE 0.1 MG/ML 5ML SYR IV PRN; +CIPROFLOXACIN 400MG / D5W IV SCH; +DEXAMETHASONE SOD INJ 4 MG/ML VIAL ONE; +EpHEDrine SULFATE INJ 50 MG/ML AMP IV PRN; +EpHEDrine SULFATE INJ 50 MG/ML AMP ONE; +FENTANYL CITRATE INJ 50 MCG/1 ML 2 ML VIAL IV PRN; +FENTANYL CITRATE INJ 50 MCG/1 ML 2 ML VIAL ONE; +LACTATED RINGER'S 1000ML 1,000 ML IV SCH; +LIDOCAINE HCL 2% 2 ML VIAL (20MG/ML) ONE; +ONDANSETRON INJ 2 MG/ML 2 ML VIAL IV PRN; +ONDANSETRON INJ 2 MG/ML 2 ML VIAL ONE; +OXYCODONE/ACETAMINOPHEN 5-325 TAB PO PRN; +PROPOFOL IV EMULSION 10 MG/ML 20 ML VIAL ONE
--- NOTE | 2018-05-28 08:11 | History & Physical Bridge Note ---
H&P Re-Evaluation Bridge Note: I have examined the patient, reviewed the History & Physical and in the interval since the performance of the History & Physical I have noted the following changes of clinical significance: No changes noted
--- NOTE | 2018-05-28 09:01 | Discharge Instructions-SurgCtr ---
Discharge Instructions Date of Service May 28, 2018. Visit Reason for Visit: Right Stones Discharge Discharge Diagnosis / Problem: right rrenal stones Discharge Goals Goal(s): Therapeutic intervention Activity Recommendations Activity Limitations: per Instructions/Follow-up section Exercise/Sports Limitations: rest today May Resume Sexual Activity: when tolerated Shower/Bathe: no limitations Driving or Machine Use: resume 1 day after discharge MEDICATIONS: Resume previous medications unless instructed otherwise by your surgeon. Resume pre-ESWL medication except for aspirin, coumadin or other blood thinners. __ Toradol 10 mg every 6 hours for initial pain. __ Lortab 5 mg 1-2 every 4 hours for pain. _x_ Percocet 5 mg 1-2 every 4 hours for pain. __ Macrodantin 50 mg x 3 a day. __ Flomax 1 tab daily one half (1/2) hour after supper. SPECIAL CARE INSTRUCTIONS: 1. Get KUB (x-ray) _x_ day before or day of office visit and bring x-ray to office __ get x-ray 2 days before and tell office you are getting x-rays when you call for the appointment. 2. Strain ALL urine. 3. Please call if you have a fever, chills, severe pain, or constant dribbling of urine. 4. Office phone number . FOLLOW UP VISIT: Please call the office to schedule a follow-up appointment at . Anesthesia . Post Anesthesia Instructions: If you have had General Anesthesia or IV Sedation: * Do not drive today. * Resume driving when surgeon permits. * Do not make important decisions or sign legal documents today. * Call surgeon for: 1. Temperature elevations greater than 101 degrees F. 2. Uncontrollable pain. 3. Excessive bleeding. 4. Persistent nausea and vomiting. 5. Medication intolerance (nausea, vomiting or rash). * For nausea and vomiting use only clear liquids such as: tea, soda, bouillon until nausea subsides, then gradually increase diet as tolerated. * If you have any concerns or questions, call your surgeon's office. If physician is unavailable and it is an emergency, call 911 or go to the nearest emergency room. . Diet Recommendations Home Diet: resume previous diet Pending Studies Studies pending at discharge: no Medical Emergencies . Who to Call and When: Medical Emergencies: If at any time you feel your situation is an emergency, please call 911 immediately. . Non-Emergent Contact Non-Emergency issues call your: Urologist Call Non-Emergent contact if: temperature is above 101.5, your pain is not controlled . . "Provider Documentation" section prepared by Gurpreet Cavazos. . [place] Drug Monitoring Program Search Results: patient reviewed within database
--- NOTE | 2018-05-28 09:04 | [facility] Operative Report ---
Operative Report Operative Date May 28, 2018. Pre-Operative Diagnosis right renal stones Post-Operative Diagnosis same Procedure(s) Performed RIGHT ESWL Surgeon INGRID Thresher [place] Surgeon(s) NONE Estimated Blood Loss NONE Findings RIGHT RENAL STONES Specimens NONE Drains None Anesthesia Type General Complication(s) none Disposition yes Recovery Room / PACU Indications RIGHT RENAL STONES Description of Procedure Patient was identified in the preoperative holding area, appropriate informed consent was reviewed and completed and the patient was transported to the operating suite. Upon arrival appropriate preoperative antibiotics were administered and general anesthesia induced. The patient was placed in supine position and the stone was localized under fluoroscopy. A total of [_2500__] shocks were delivered to the stone. There appeared to be good fragmentation of the stone. Details of this procedure can be found on the [facility] information sheet. At the conclusion of the case the patient was extubated and taken to the PACU in stable condition. There were no complications. I attest to the content of the Intraoperative Record and any orders documented therein. Any exceptions are noted below.
--- NOTE | 2018-05-28 10:10 | Anesthesia Progress Nt - [facility] ---
Anesthesia Post Op Note Date & Time May 28, 2018 at 10:10 Vital Signs Pain Intensity: 0 Vital Signs Past 12 Hours Date Time Temp Pulse Resp B/P (MAP) Pulse Ox O2 Delivery O2 Flow Rate FiO2 05/28/18 09:38 36.7 65 16 138/70 97 Mask 6 05/28/18 06:58 36.8 62 18 176/91 (119) 96 Room Air Notes Mental Status: alert / awake / arousable, participated in evaluation Pt Amnestic to Procedure: Yes Nausea / Vomiting: adequately controlled Pain: adequately controlled Airway Patency, RR, SpO2: stable & adequate BP & HR: stable & adequate Hydration State: stable & adequate Anesthetic Complications: no major complications apparent
[2018-05-28 10:17] VITALS: TEMP 36.1
[2018-05-28 10:44] VITALS: BP 182/84; PULSE 67; O2SAT 95
== END | disposition home or self-care (01) ==
LOC: X.SURG 06:47
PROVIDERS: ATTEND Urology
DX: N20.0 Calculus of kidney (principal); N52.9 Male erectile dysfunction, unspecified; N40.0 Benign prostatic hyperplasia without lower urinary tract symptoms; J44.9 Chronic obstructive pulmonary disease, unspecified; I10 Essential (primary) hypertension; M19.90 Unspecified osteoarthritis, unspecified site; G47.33 Obstructive sleep apnea (adult) (pediatric); K21.0 Gastro-esophageal reflux disease with esophagitis; K57.90 Diverticulosis of intestine, part unspecified, without perforation or abscess without bleeding; Z90.49 Acquired absence of other specified parts of digestive tract

== ENCOUNTER 2022-06-21 12:13 | Inpatient (IN) ==
[2022-06-21] MEDS ORDERED: KETOROLAC TROMETHAMINE 15 MG/ML VIAL IV ONE (12:37)
--- NOTE | 2022-06-21 12:44 | Emergency Department Note ---
History of Present Illness General Chief complaint: Back Injury/Pain Stated complaint: L SIDED PAIN AND BACK PAIN Time Seen by Provider: 06/21/22 12:23 Source: patient, family ( who is at the bedside), RN notes reviewed and old records reviewed Mode of arrival: ambulatory Limitations: no limitations History of Present Illness Maximum Pain Intensity: 8 This patient is an 82-year-old male who comes in after having pain in his left chest/armpit. Its in 1 area is very reproducible upon palpation and movement he said no injury. Its constant but it got hurts worse when he moves. He says if he lays still is okay he has a history of COPD but is had no increasing shortness of breath or cough. No fever chills no trauma or injury. No nausea or vomiting. no dysuria or hematuria. no focal numbness or weakness. No history of blood clots or pneumothorax. He does not feel short of breath. No rash. Home Medications Medication Instructions Recorded Confirmed Type ascorbic acid (vitamin C) 500 mg 500 mg PO BID 06/14/19 06/02/22 History tablet calcium cit 250 mg-ergocalciferol 1 tab PO PM 06/14/19 06/02/22 History (vit D2) 2.5 mcg (100 unit) tablet docusate sodium 100 mg capsule 100 mg PO BID #60 caps 06/14/19 06/02/22 History donepezil 5 mg tablet 5 mg PO QAM 06/14/19 06/02/22 History losartan 25 mg tablet 25 mg PO QAM 06/14/19 06/02/22 History tramadol 50 mg tablet 50 mg PO BID PRN Pain 08/18/19 06/02/22 History diclofenac sodium 1 % topical gel 2 gm topical QID 01/18/20 06/02/22 History omeprazole 20 mg capsule,delayed 20 mg PO DAILY 01/18/20 06/02/22 History release polyethylene glycol 3350 17 17 gm PO DAILY 01/18/20 06/02/22 History gram/dose oral powder (Miralax) potassium citrate 10 mEq (1,080 10 meq PO TID 01/18/20 06/02/22 History mg) tablet,extended release wheat dextrin 5 gram/7.4 gram oral gm PO 01/18/20 06/02/22 History powder (Benefiber Healthy Shape) oxybutynin chloride 5 mg tablet 5 mg PO BID #180 tabs 04/05/20 06/02/22 Rx tamsulosin 0.4 mg capsule 0.4 mg PO DAILY #90 caps 04/05/20 06/02/22 Rx CPAP Supplies #1 ea 06/28/21 06/02/22 Rx CPAP Machine #1 ea 07/14/21 06/02/22 Rx umeclidinium 62.5 mcg/actuation 1 inh inhalation DAILY #30 ea 01/14/22 06/02/22 Rx blister powder for inhalation (Incruse Ellipta) CPAP Supplies #1 ea 06/02/22 06/02/22 Rx finasteride 5 mg tablet 5 mg PO DAILY #90 tabs 06/10/22 Rx Allergies Allergy/AdvReac Type Severity Reaction Status Date / Time No Known Drug Allergies Allergy Verified 06/02/22 13:16 Past Med/Surg History Medical History BPH (benign prostatic hyperplasia) Chronic obstructive pulmonary disease CAN'T REMEMBER LAST RES. INH USE - LONG TIME GERD (gastroesophageal reflux disease) Hearing deficit Hypertension Inguinal hernia Kidney stones Memory changes Osteoarthritis Osteoporosis Sleep apnea CPAP Surgical History History of ankle surgery TITANIUM TO LEFT ANKLE History of cholecystectomy History of colonoscopy History of foot surgery right foot - big toe - 10/14/2002 History of herniorrhaphy History of lithotripsy History of shoulder surgery Left History of surgery on wrist LEFT Family History Mother Cancer Father , Spontaneous rupture of kidney Sudden Other No family history of allergies Social History Smoking Status: Former smoker Tobacco Type: Cigarettes Age Started Using Tobacco: 17; Age Quit Using Tobacco: 49; packs per day: 1; Number of Years Since Quit: 30; Second Hand Exposure: No; Hx Alcohol Use: Yes Alcohol type: wine and hard liquor Alcohol type Comment: bottle of blackberry aranza x/month Hx Substance Use: No Preferred Language: Libyan Communication Ability: Effective Philosophy Specialist Required: No Beliefs That Will Affect Care: None marital status: Current Living Situation: Spouse current occupational status: retired Feels Safe at Home: Yes Assistive Devices: CPAP, Glasses and Hearing Aid - Bilateral Review of Systems A total of 10 systems reviewed and were otherwise negative Physical Exam Vital Signs Vital Signs - 24 hr 06/21/22 12:14 06/21/22 12:37 06/21/22 13:14 Temperature 36.6 C Temperature Source Temporal Artery Scan Pulse Rate 73 Pulse Rate [Right Finger] 63 Respiratory Rate 16 20 Respiratory Effort / Characteristics Non-Labored Respiratory Depth Normal Blood Pressure 116/69 Blood Pressure [Right Arm] 120/65 Blood Pressure Mean 84 Blood Pressure Mean [Right Arm] 83 Blood Pressure Position Sitting Pulse Oximetry 91 87 L 91 Oxygen Delivery Method Room Air Room Air Sepsis Recent Fever Within 48 Hours No Sepsis New/Unexplained Change in Mental Status No Sepsis Action Taken by Nursing No Action Required General: Well developed well nourished older male who appears in no acute distress, breathing comfortably on room air. Normal speech HEENT: Normal cephalic atraumatic. Pupils are equal round and reactive to light. Sclera anicteric. Extraocular movements are intact. Oropharynx is pink with moist mucous membranes. No swelling of the mouth lips or tongue. Neck: Supple with a midline trachea. No meningeal signs or stiffness, no JVD or bruits. No Stridor. Chest: Clear to auscultation bilaterall with the exception of coarse breath sounds bilateraly. No wheezes or rhonchi. No increased work of breathing. Is exquisitely tender to palpation. No crepitus or subcutaneous air. Heart: Regular rate and rhythm without murmurs or gallops. Abdomen: Soft nontender, nondistended without rebound guarding or rigidity. Extremities: No cyanosis clubbing or edema. No calf tenderness or assymetry Spine/Back. Non tender to palpation. No CVA tenderness Skin: Good turgor without rashes. Neurologic exam: Cranial nerves two through 12 are intact. Motor and sensation are intact and symmetrical throughout. Course Administered Medications Discontinued Medications Ioversol (Optiray 300 500ml) 103 ml IV ONCE ONE Stop: 06/21/22 13:41 Last Admin: 06/21/22 13:40 Dose: 103 ml Documented By: FLORENTINO Ketorolac Tromethamine (Ketorolac Tromethamine 15 Mg/Ml Vial) 10 mg IV NOW ONE Stop: 06/21/22 12:38 Last Admin: 06/21/22 12:46 Dose: 10 mg Documented By: AP Morphine Sulfate (Morphine Sulfate 2 Mg/Ml Carp) 2 mg IV NOW STA Stop: 06/21/22 13:53 Last Admin: 06/21/22 14:23 Dose: 2 mg Documented By: AP Ondansetron HCl (Ondansetron Inj 2 Mg/Ml 2 Ml Vial) 4 mg IV NOW STA Stop: 06/21/22 13:53 Last Admin: 06/21/22 14:23 Dose: 4 mg Documented By: SHLOMO Medical Decision Making Differential Diagnosis Acute coronary syndrome, arrhythmia, pneumothorax, COPD exacerbation, infection, pneumonia, sepsis, PE, musculoskeletal Medical Records Attestation: I reviewed the patient's medical records. Home Medications Current Medication List: was personally reviewed by me Laboratory Data Attestation: I reviewed the patient's lab results. Result diagrams: 06/21/22 12:33 06/21/22 12:33 Lab Results 06/21/22 06/21/22 06/21/22 Range/Units 12:33 12:33 12:33 WBC 4.90 (4.8-10.8) K/ul RBC 4.84 (4.63-6.08) M/uL Hgb 16.5 (14.0-18.0) g/dl Hct 47.0 (40.1-51.0) % MCV 97.1 (80.0-100.0) fL MCH 34.1 H (25.0-34.0) pg MCHC 35.1 (32.0-36.0) g/dL RDW Std Deviation 48.1 H (36.4-46.3) fL RDW Coeff of [place] 13.3 (11.5-14.5) % Plt Count 153 (130-400) K/uL MPV 10.8 (9.4-12.4) fL Immature Gran % (Auto) 0.2 % Neut % (Auto) 65.1 % Lymph % (Auto) 23.5 % Saline % (Auto) 10.4 % Eos % (Auto) 0.4 % Baso % (Auto) 0.4 % Neut # (Auto) 3.19 (1.4-6.5) K/uL Lymph # (Auto) 1.15 L (1.2-3.4) K/uL Saline # (Auto) 0.51 (0.24-0.82) K/uL Eos # (Auto) 0.02 (0-0.50) K/uL Baso # (Auto) 0.02 (0-0.2) K/uL Immature Gran # (Auto) 0.01 (0.00-0.02) K/uL PT 10.8 (9.0-12.0) Seconds INR 1.0 (0.9-1.1) APTT 26.0 (21.0-31.0) Seconds PTT Ratio 0.9 D-Dimer 1740 H* (0-500) ug/L FEU Sodium 139 (136-145) mmol/L Potassium 3.9 (3.5-5.1) mmol/L Chloride 108 H (98-107) mmol/L Carbon Dioxide 24 (21-32) mmol/L Anion Gap 7 (3-11) BUN 12 (6-23) mg/dl Creatinine 0.88 (0.6-1.4) mg/dl Est Cr Clr Drug Dosing 67.5 ml/min Est GFR ( Amer) 92.1 ml/min Est GFR (Non-Af Amer) 79.4 ml/min BUN/Creatinine Ratio 13.6 (10-20) Glucose 114 H (70-99(Fasting)) mg/dl Calcium 8.7 (8.5-10.1) mg/dl Total Bilirubin 0.9 (0.2-1.0) mg/dl AST 19 (13-39) U/L ALT 13 (7-52) U/L Alkaline Phosphatase 66 (34-104) U/L Troponin I High Sens 18.5 (0-20) pg/ml Total Protein 6.5 (6.0-8.3) gm/dl Albumin 3.7 (3.4-5.0) gm/dl Globulin 2.8 (2.5-4.0) gm/dl Albumin/Globulin Ratio 1.3 (0.9-2) Lipase 9 L (11-82) U/L SARS-CoV-2 (PCR) (Negative) 06/21/22 Range/Units 13:17 WBC (4.8-10.8) K/ul RBC (4.63-6.08) M/uL Hgb (14.0-18.0) g/dl Hct (40.1-51.0) % MCV (80.0-100.0) fL MCH (25.0-34.0) pg MCHC (32.0-36.0) g/dL RDW Std Deviation (36.4-46.3) fL RDW Coeff of [place] (11.5-14.5) % Plt Count (130-400) K/uL MPV (9.4-12.4) fL Immature Gran % (Auto) % Neut % (Auto) % Lymph % (Auto) % Saline % (Auto) % Eos % (Auto) % Baso % (Auto) % Neut # (Auto) (1.4-6.5) K/uL Lymph # (Auto) (1.2-3.4) K/uL Saline # (Auto) (0.24-0.82) K/uL Eos # (Auto) (0-0.50) K/uL Baso # (Auto) (0-0.2) K/uL Immature Gran # (Auto) (0.00-0.02) K/uL PT (9.0-12.0) Seconds INR (0.9-1.1) APTT (21.0-31.0) Seconds PTT Ratio D-Dimer (0-500) ug/L FEU Sodium (136-145) mmol/L Potassium (3.5-5.1) mmol/L Chloride (98-107) mmol/L Carbon Dioxide (21-32) mmol/L Anion Gap (3-11) BUN (6-23) mg/dl Creatinine (0.6-1.4) mg/dl Est Cr Clr Drug Dosing ml/min Est GFR ( Amer) ml/min Est GFR (Non-Af Amer) ml/min BUN/Creatinine Ratio (10-20) Glucose (70-99(Fasting)) mg/dl Calcium (8.5-10.1) mg/dl Total Bilirubin (0.2-1.0) mg/dl AST (13-39) U/L ALT (7-52) U/L Alkaline Phosphatase (34-104) U/L Troponin I High Sens (0-20) pg/ml Total Protein (6.0-8.3) gm/dl Albumin (3.4-5.0) gm/dl Globulin (2.5-4.0) gm/dl Albumin/Globulin Ratio (0.9-2) Lipase (11-82) U/L SARS-CoV-2 (PCR) POSITIVE A* (Negative) Imaging Data Attestation: I personally reviewed and interpreted this imaging study as follows: My Impression: Chest x-rayincreased interstitial markings in the bases bilaterally. No pneumothorax seen Radiologist's Impression: Chest X-Ray 06/21/22 12:37 XR chest 1V portable HISTORY: Atypical Chest Pain COMPARISON: Chest 01/27/2019. FINDINGS: No pneumothorax. Emphysema. Progressive interstitial thickening at the lung bases. The upper lung zones are clear. The heart is top normal in size. There is a tortuous thoracic aorta. Emphysema is noted. IMPRESSION: 1. Progressive interstitial thickening at the lung bases suggestive of an interstitial pneumonitis. This could be due to a viral process. 2. Emphysema. ACT 112: Negative or not required by law. Electronically signed by: Joby Salazar M.D. 06/21/2022 1:08 PM Chest CTA 06/21/22 13:12 CHEST CTA for PULMONARY ARTERIES CT DOSE: 570.45 mGy.cm HISTORY: Left-sided chest pain. Shortness of breath. TECHNIQUE: Multiaxial CT images of the chest were performed following the intravenous administration of contrast to evaluate the pulmonary arteries. Maxi mal intensity projection images were also obtained. A dose lowering technique was utilized adhering to the principles of ALARA. COMPARISON STUDY: Chest CTA 10/13/2017. FINDINGS: There is an old mild anterior wedge-shaped compression deformity at T11. Acute left anterior sixth and seventh rib fractures. No additional fractures identified within the chest. Limited views of the upper abdomen demonstrate normal liver, spleen, and adrenal glands. The thyroid gland enhances normally. Normal caliber esophagus. No pleural or pericardial effusions. The heart is normal in size. No mediastinal or hilar lymphadenopathy. Mild calcified plaque within the normal caliber thoracic aorta. No evidence for an aortic dissection. No filling defects within the pulmonary arteries to suggest a pulmonary embolus. No pneumothorax. Moderate emphysema. Calcified granuloma within the lingula. Patchy groundglass and interstitial densities within the bilateral lower lobes have progressed. This could represent a low-grade pneumonia or atelectasis. Mild bronchial wall thickening within the bilateral lower lobes. Stable 8 mm subpleural nodule within the periphery the right lower lobe on image 74. This is likely benign given the long-term stability. IMPRESSION: 1. No evidence for pulmonary embolus. 2. Nondisplaced acute left anterior sixth and seventh rib fractures. No pneumothorax. 3. Patchy groundglass and interstitial densities within the bilateral lower lobes which have progressed. This could represent atelectasis or developing pneumonia. 4. Stable 8 mm right lower lobe pulmonary nodule. This is likely benign given the long-term stability. ACT 112: Negative or not required by law. Electronically signed by: Joby Salazar M.D. 06/21/2022 2:08 PM ECG Data Attestation: I personally reviewed and interpreted this ECG as follows: Indication: + chest pain Rate (beats per minute): 66 Rhythm: + sinus with SA ECG Intervals/blocks: + Normal QRS, + Normal QT and + Normal PA ECG [place]: + Normal ECG ST segments: + Normal ST segments ECG Findings: no PACs or no PVCs Comparison ECG Date: from (10/13/17) Change: no significant change MDM Narrative This patient comes in as described above he is having pain in his left chest in his armpit almost. It is very reproducible and 1 small area it seems to hurt significantly. There is no rash or subcutaneous air seen. IV accesss was established was initially on Toradol 10 mg IV. EKG shows no ischemic changes or ectopy. Blood work was obtained I also ordered a chest x-ray and he was reassessed frequently. About a lot of pain with movement. Chest x-ray does not show congestive heart failure pneumonia pneumothorax there is some haziness which could be interstitial lung disease or viral illness or COVID. His COVID test did come back positive. His O2 sat is low on room air he was placed on oxygen he seems comfortable with this he was offered nebs but does not feel he needs any at this point he is not wheezy. His D-dimer was elevated and I did a CTA of the chest there is no evidence of PE or pneumothorax. He does have 2 rib fractures and my talk to the that she said he actually did fall a couple days ago. He looks well on the oxygen but given the fact that he has COPD he has some hypoxemia and has COVID I do think he needs to be admitted/observed in the hospital. I did give him Decadron 6 mg IV as well. He was given morphine 2 mg IV and Zofran 4 mg IV for ongoing pain. He will be further monitored. I talked to the [facility] hospitalist to admit her for further treatment and evaluation Continous Cardiac monitoring: An order was placed in the EMR for continuous cardiac monitoring. Patient patient noted be in normal sinus rhythm rate of 65 Impression & Plan COVID, COPD (chronic obstructive pulmonary disease), Rib fractures, Hypoxemia, Chest pain Discharge Plan Visit Data Chief Complaint: Back Injury/Pain Stated Complaint: L SIDED PAIN AND BACK PAIN ED Provider: [facility] Discharge Problem: COVID, COPD (chronic obstructive pulmonary disease), Rib fractures, Hypoxemia, Chest pain Forms Stand Alone Forms: [facility] Prescriptions Prescriptions: No Action (DME) CPAP Supplies Misc See Rx Instructions .MEDSUPPLY Qty: 1 0RF Rx Instructions: Mask,Tubing, filters, HeadGear, Water Chamber. Please provide all appropriate CPAP supplies. Lifetime need. Incruse Ellipta 62.5 mcg/actuation blister with device 1 inh inhalation DAILY Qty: 30 2RF finasteride 5 mg tablet 5 mg PO DAILY Qty: 90 3RF (DME) CPAP Supplies Misc See Rx Instructions .Route Qty: 1 0RF Rx Instructions: Patient needs CPAP mask fitting his is [id number] calcium citrate-vitamin D2 250-100 mg-unit tablet 1 tab PO PM docusate sodium 100 mg capsule 100 mg PO BID Qty: 60 donepezil 5 mg tablet 5 mg PO QAM losartan 25 mg tablet 25 mg PO QAM ascorbic acid (vitamin C) 500 mg tablet 500 mg PO BID potassium citrate 10 mEq (1,080 mg) tablet extended release 10 meq PO TID Benefiber Healthy Shape 5 gram/7.4 gram powder PO diclofenac sodium 1 % gel 2 gm TOP QID polyethylene glycol 3350 [Miralax] 17 gram/dose powder 17 gm PO DAILY omeprazole 20 mg capsule,delayed release(DR/EC) 20 mg PO DAILY tamsulosin 0.4 mg capsule 0.4 mg PO DAILY Qty: 90 3RF oxybutynin chloride 5 mg tablet 5 mg PO BID Qty: 180 3RF tramadol 50 mg tablet 50 mg PO BID PRN (Reason: Pain) (DME) CPAP Machine Misc See Rx Instructions .ROUTE .MEDSUPPLY Qty: 1 0RF Rx Instructions: Please do a mask refitting. Lifetime need. Referrals Referrals: Teofilo Krishnamurthy, [Primary Care Provider] - : COPD (chronic obstructive pulmonary disease) Qualifiers: COPD type: unspecified COPD Qualified Code(s): J44.9 - Chronic obstructive pulmonary disease, unspecified Rib fractures Qualifiers: Encounter type: initial encounter Fracture type: closed Laterality: left Qualified Code(s): S22.42XA - Multiple fractures of ribs, left side, initial encounter for closed fracture Chest pain Qualifiers: Chest pain type: chest pain on breathing Qualified Code(s): R07.1 - Chest pain on breathing
[2022-06-21 12:51] LABS: Basophils # (auto) 0.02 K/uL (0-0.2); Basophils % (auto) 0.4 %; Eosinophils # (auto) 0.02 K/uL (0-0.50); Eosinophils % (auto) 0.4 %; Hemoglobin 16.5 g/dl (14.0-18.0); Immature Granulocytes # (auto) 0.01 K/uL (0.00-0.02); Immature Granulocytes % (auto) 0.2 %; Lymphocytes # (auto) 1.15 K/uL (1.2-3.4); Lymphocytes % (auto) 23.5 %; Mean Corpuscular Hemoglobin 34.1 pg (25.0-34.0); Mean Corpuscular Hgb Conc 35.1 g/dL (32.0-36.0); Mean Corpuscular Volume 97.1 fL (80.0-100.0); Mean Platelet Volume 10.8 fL (9.4-12.4); Monocytes # (auto) 0.51 K/uL (0.24-0.82); Monocytes % (auto) 10.4 %; Neutrophils # (auto) 3.19 K/uL (1.4-6.5); Neutrophils % (auto) 65.1 %; Platelet Count 153 K/uL (130-400); RDW Coefficient of Variation 13.3 % (11.5-14.5); RDW Standard Deviation 48.1 fL (36.4-46.3); Red Blood Count 4.84 M/uL (4.63-6.08)
[2022-06-21 13:04] LABS: Partial Thromboplastin Ratio 0.9; Prothrombin Time 10.8 Seconds (9.0-12.0)
[2022-06-21 13:05] LABS: D Dimer 1740 ug/L FEU (0-500)
--- NOTE | 2022-06-21 13:10 | XRay Report ---
XR chest 1V portable HISTORY: Atypical Chest Pain COMPARISON: Chest 01/27/2019. FINDINGS: No pneumothorax. Emphysema. Progressive interstitial thickening at the lung bases. The uppe r lung zones are clear. The heart is top normal in size. There is a tortuous thoracic aorta. Emphysem a is noted. IMPRESSION: 1. Progressive interstitial thickening at the lung bases suggestive of an interstitial pneumonitis. T his could be due to a viral process. 2. Emphysema. ACT 112: Negative or not required by law. Electronically signed by: Joby Salazar M.D. 06/21/2022 1:08 PM
[2022-06-21 13:20] LABS: Albumin Globulin Ratio 1.3 (0.9-2); Albumin Level 3.7 gm/dl (3.4-5.0); BUN Creatinine Ratio 13.6 (10-20); Bilirubin,Total 0.9 mg/dl (0.2-1.0); Calcium 8.7 mg/dl (8.5-10.1); Creatinine Clr Calc Pharmacy 67.5 ml/min; Est GFR (African American) 92.1 ml/min; Est GFR (Non-African American) 79.4 ml/min; Globulin 2.8 gm/dl (2.5-4.0); Potassium 3.9 mmol/L (3.5-5.1); Total Protein 6.5 gm/dl (6.0-8.3)
[2022-06-21 13:22] LABS: Troponin I High Sensitivity 18.5 pg/ml (0-20)
[2022-06-21] MEDS ORDERED: OPTIRAY 300 500mL IV ONE (13:40)
[2022-06-21] MEDS ORDERED: ONDANSETRON INJ 2 MG/ML 2 ML VIAL IV STA (13:52)
[2022-06-21] MEDS ORDERED: MoRPHine SULFATE 2 MG/ML CARP IV STA (13:52)
--- NOTE | 2022-06-21 14:04 | Electrocardiogram Report ---
Test Reason : Blood Pressure : / mmHG Vent. Rate : 066 BPM Atrial Rate : 066 BPM P-R Int : 160 ms QRS Dur : 068 ms QT Int : 388 ms P-R-T Axes : 038 015 040 degrees QTc Int : 406 ms Sinus rhythm with frequent Premature atrial complexes Otherwise normal ECG When compared with ECG of 13-OCT-2017 14:42, No significant change was found Confirmed by Juanpablo Michael ([id number]) on 06/21/2022 2:04:22 PM Referred By: REFERRED SELF Confirmed By:Juanpablo Michael
--- NOTE | 2022-06-21 14:11 | CT Scan Report ---
CHEST CTA for PULMONARY ARTERIES CT DOSE: 570.45 mGy.cm HISTORY: Left-sided chest pain. Shortness of breath. TECHNIQUE: Multiaxial CT images of the chest were performed following the intravenous administration of contrast to evaluate the pulmonary arteries. Maximal intensity projection images were also obtaine d. A dose lowering technique was utilized adhering to the principles of ALARA. COMPARISON STUDY: Chest CTA 10/13/2017. FINDINGS: There is an old mild anterior wedge-shaped compression deformity at T11. Acute left anterio r sixth and seventh rib fractures. No additional fractures identified within the chest. Limited views of the upper abdomen demonstrate normal liver, spleen, and adrenal glands. The thyroid gland enhance s normally. Normal caliber esophagus. No pleural or pericardial effusions. The heart is normal in siz e. No mediastinal or hilar lymphadenopathy. Mild calcified plaque within the normal caliber thoracic aorta. No evidence for an aortic dissection. No filling defects within the pulmonary arteries to sugg est a pulmonary embolus. No pneumothorax. Moderate emphysema. Calcified granuloma within the lingula. Patchy groundglass and interstitial densities within the bilateral lower lobes have progressed. This could represent a low-grade pneumonia or atelectasis. Mild bronchial wall thickening within the bila teral lower lobes. Stable 8 mm subpleural nodule within the periphery the right lower lobe on image 7 4. This is likely benign given the long-term stability. IMPRESSION: 1. No evidence for pulmonary embolus. 2. Nondisplaced acute left anterior sixth and seventh rib fractures. No pneumothorax. 3. Patchy groundglass and interstitial densities within the bilateral lower lobes which have progress ed. This could represent atelectasis or developing pneumonia. 4. Stable 8 mm right lower lobe pulmonary nodule. This is likely benign given the long-term stability . ACT 112: Negative or not required by law. Electronically signed by: Joby Salazar M.D. 06/21/2022 2:08 PM
[2022-06-21] MEDS ORDERED: dexAMETHasone**PF** 10 MG/ML VIAL IV ONE (14:26)
--- NOTE | 2022-06-21 16:17 | History & Physical Report ---
Date of Service June 21, 2022 Assessment & Plan (1) COVID: (2) Hypoxemia: (3) Rib fractures: (4) COPD (chronic obstructive pulmonary disease): (5) ZHANE (obstructive sleep apnea): (6) Hypertension: (7) BPH (benign prostatic hypertrophy): (8) Mild cognitive impairment: Plan COVID infection with hypoxia: -pt did not appeared to be in any respiratory distress on exam -pt is vaccinated against COVID x 4 -D dimer is elevated --- CTA chest: no PE but Patchy groundglass and interstitial densities within the bilateral lower lobes which have progressed -due to pts vaccination status and mild respiratory symptoms will do dexamethasone only -will get CRP and Procal --- if repeat CRP genevieve trending up then can consider starting the pt on Remdesivir -PT/OT - wean off oxygen as pt tolerates L side ribs fracture: -CTA chest: Nondisplaced acute left anterior sixth and seventh rib fractures. No pneumothorax. -pt takes tramadol 50mg BID for chronic pain at home ----will hold and start him on oxycodone 5mg Q6hr prn -incentive scar COPD: -continue home inhaler regimen ZHANE on CPAP: -will continue CPAP inpt ---pt does not know the setting HTN/BPH/Dementia/GERD: -continue home meds Diet: heart healthy DVT PPx: Lovenox Code Status: FULL CODE Emergency Contact: Deborah- [phone] History of Present Illness Chief Complaint: Chest wall pain Primary Care Provider: Teofilo Krishnamurthy DO Pt is a 82 y/o M with hx of COPD, ZHANE on CPAP, HTN, BPH, DJD on Tramadol, DDD, Vit b12 def, GERD, and mild cognitive impairment came into the ER with L lateral chest wall pain that started yesterday. Pt also complained of cough, rhinorrhea for 3 days. Denied any acute fall, fever, or SOB. He is vaccinated against COVID x4. At bedside: complained of L lateral chest wall, worsens with movement. Denied any SOB, CP, N/V. Allergies Allergy/AdvReac Type Severity Reaction Status Date / Time No Known Drug Allergies Allergy Verified 06/02/22 13:16 Home Medications Medication Instructions Recorded Confirmed Type ascorbic acid (vitamin C) 500 mg 500 mg PO BID 06/14/19 06/21/22 History tablet calcium cit 250 mg-ergocalciferol 1 tab PO PM 06/14/19 06/21/22 History (vit D2) 2.5 mcg (100 unit) tablet docusate sodium 100 mg capsule 100 mg PO BID PRN Constipation #60 06/14/19 06/21/22 History caps donepezil 5 mg tablet 5 mg PO HS 06/14/19 06/21/22 History losartan 25 mg tablet 25 mg PO QAM 06/14/19 06/21/22 History tramadol 50 mg tablet 50 mg PO BID PRN Pain 08/18/19 06/21/22 History diclofenac sodium 1 % topical gel 2 gm topical BID PRN Pain 01/18/20 06/21/22 History omeprazole 20 mg capsule,delayed 20 mg PO DAILY 01/18/20 06/21/22 History release polyethylene glycol 3350 17 17 gm PO HS 01/18/20 06/21/22 History gram/dose oral powder (Miralax) potassium citrate 10 mEq (1,080 10 meq PO TID 01/18/20 06/21/22 History mg) tablet,extended release wheat dextrin 5 gram/7.4 gram oral 4 gm PO HS 01/18/20 06/21/22 History powder (Benefiber Healthy Shape) umeclidinium 62.5 mcg/actuation 1 inh inhalation DAILY #30 ea 01/14/22 06/21/22 Rx blister powder for inhalation (Incruse Ellipta) finasteride 5 mg tablet 5 mg PO DAILY #90 tabs 06/10/22 06/21/22 Rx amlodipine 5 mg tablet 5 mg PO DAILY 06/21/22 06/21/22 History tamsulosin 0.4 mg capsule 0.4 mg PO HS 06/21/22 06/21/22 History Past Med/Surg History Medical History (Updated 06/21/22 @ 16:15 by Corky Walsh MD) BPH (benign prostatic hyperplasia) Chronic obstructive pulmonary disease CAN'T REMEMBER LAST RES. INH USE - LONG TIME GERD (gastroesophageal reflux disease) Hearing deficit Hypertension Inguinal hernia Kidney stones Memory changes Mild cognitive impairment Osteoarthritis Osteoporosis Sleep apnea CPAP Surgical History History of ankle surgery TITANIUM TO LEFT ANKLE History of cholecystectomy History of colonoscopy History of foot surgery right foot - big toe - 10/14/2002 History of herniorrhaphy History of lithotripsy History of shoulder surgery Left History of surgery on wrist LEFT Family History Mother Cancer Father , Spontaneous rupture of kidney Sudden Other No family history of allergies Social History Smoking Status: Former smoker Tobacco Type: Cigarettes Age Started Using Tobacco: 17; Age Quit Using Tobacco: 49; packs per day: 1; Number of Years Since Quit: 30; Second Hand Exposure: No; Hx Alcohol Use: Yes Alcohol type: wine and hard liquor Alcohol type Comment: bottle of blackberry aranza x/month Hx Substance Use: No Preferred Language: Ghanaian Communication Ability: Effective Divine Healer Required: No Beliefs That Will Affect Care: None marital status: Current Living Situation: Spouse current occupational status: retired Feels Safe at Home: Yes Assistive Devices: CPAP, Glasses and Hearing Aid - Bilateral Review of Systems Review of Systems: At least 10 Review of systems were reviewed and all negative except as indicated in HPI Physical Exam Physical Exam: General:. NAD, well developed, well nourished, average body habitus HEENT:. Normocephalic and atraumatic, Normal Conjunctiva, EOMI, Sclera is non- icteric Lungs:.TTP of the L lateral chest wall (near the axilla), no swelling or deformities, good air entry b/l with L lower lobe rales Heart:. Normal S1, S2, no murmur Abdominal:. ND, Soft, NT MSK:. No deformities of UE and LE, No leg edema Skin:. no rash or open wound Psych:. AAOx3, normal affect Results & Data Results & Data ([facility]) Vital Signs (Past 12 Hours) Vital Signs Temp Pulse Pulse Resp BP BP Pulse Ox 06/21/22 16:06 63 20 133/83 94 06/21/22 13:14 63 20 120/65 91 06/21/22 12:37 87 L 06/21/22 12:14 36.6 C 73 16 116/69 91 O2 Del Method O2 Flow Rate 06/21/22 16:06 Nasal Cannula 3 06/21/22 13:14 Room Air 06/21/22 12:37 Room Air 06/21/22 12:14 Laboratory Results Short CBC 06/21/22 Range/Units 12:33 WBC 4.90 (4.8-10.8) K/ul Hgb 16.5 (14.0-18.0) g/dl Hct 47.0 (40.1-51.0) % Plt Count 153 (130-400) K/uL BMP 06/21/22 12:33 Sodium 139 Potassium 3.9 Chloride 108 H Carbon Dioxide 24 BUN 12 Creatinine 0.88 Glucose 114 H Calcium 8.7 Liver Function 06/21/22 Range/Units 12:33 Total Bilirubin 0.9 (0.2-1.0) mg/dl AST 19 (13-39) U/L ALT 13 (7-52) U/L Alkaline Phosphatase 66 (34-104) U/L Albumin 3.7 (3.4-5.0) gm/dl Diagnostic Findings Chest X-Ray 06/21/22 12:37 XR chest 1V portable HISTORY: Atypical Chest Pain COMPARISON: Chest 01/27/2019. FINDINGS: No pneumothorax. Emphysema. Progressive interstitial thickening at the lung bases. The upper lung zones are clear. The heart is top normal in size. There is a tortuous thoracic aorta. Emphysema is noted. IMPRESSION: 1. Progressive interstitial thickening at the lung bases suggestive of an interstitial pneumonitis. This could be due to a viral process. 2. Emphysema. ACT 112: Negative or not required by law. Electronically signed by: Joby Salazar M.D. 06/21/2022 1:08 PM Chest CTA 06/21/22 13:12 CHEST CTA for PULMONARY ARTERIES CT DOSE: 570.45 mGy.cm HISTORY: Left-sided chest pain. Shortness of breath. TECHNIQUE: Multiaxial CT images of the chest were performed following the intravenous administration of contrast to evaluate the pulmonary arteries. Maximal intensity projection images were also obtained. A dose lowering technique was utilized adhering to the principles of ALARA. COMPARISON STUDY: Chest CTA 10/13/2017. FINDINGS: There is an old mild anterior wedge-shaped compression deformity at T11. Acute left anterior sixth and seventh rib fractures. No additional fractures identified within the chest. Limited views of the upper abdomen demonstrate normal liver, spleen, and adrenal glands. The thyroid gland enhances normally. Normal caliber esophagus. No pleural or pericardial effusions. The heart is normal in size. No mediastinal or hilar lymphadenopathy. Mild calcified plaque within the normal caliber thoracic aorta. No evidence for an aortic dissection. No filling defects within the pulmonary arteries to suggest a pulmonary embolus. No pneumothorax. Moderate emphysema. Calcified granuloma within the lingula. Patchy groundglass and interstitial densities within the bilateral lower lobes have progressed. This could represent a low-grade pneumonia or atelectasis. Mild bronchial wall thickening within the bilateral lower lobes. Stable 8 mm subpleural nodule within the periphery the right lower lobe on image 74. This is likely benign given the long-term stability. IMPRESSION: 1. No evidence for pulmonary embolus. 2. Nondisplaced acute left anterior sixth and seventh rib fractures. No pneumothorax. 3. Patchy groundglass and interstitial densities within the bilateral lower lobes which have progressed. This could represent atelectasis or developing pneumonia. 4. Stable 8 mm right lower lobe pulmonary nodule. This is likely benign given the long-term stability. ACT 112: Negative or not required by law. Electronically signed by: Joby Salazar M.D. 06/21/2022 2:08 PM Code Status & VTE Plan VTE Prophylaxis Plan VTE Prophylaxis will be ordered: Yes (1) Rib fractures Encounter type: initial encounter Fracture type: closed Laterality: left Qualified Code(s): S22.42XA - Multiple fractures of ribs, left side, initial encounter for closed fracture (2) COPD (chronic obstructive pulmonary disease) COPD type: unspecified COPD Qualified Code(s): J44.9 - Chronic obstructive pulmonary disease, unspecified
[2022-06-21] MEDS ORDERED: oxyCODONE HCL IR 5 MG TAB (IMMEDIATE RELEASE) PO PRN (17:58)
[2022-06-21] MEDS: POLYETHYLENE (MIRALAX) 17 GM PACK PO SCH (20:03)
[2022-06-21] MEDS: PSYLLIUM or GUAR GUM FIBER POWDER PACKET PO SCH (20:03)
[2022-06-21] MEDS: ENOXAPARIN INJ 40 MG/0.4 ML SYR SQ SCH (20:04)
[2022-06-21] MEDS: POTASSIUM CITRATE 10 MEQ TAB PO SCH (20:04)
[2022-06-21] MEDS: DONEPEZIL HCL 5 MG TAB PO SCH (20:05)
[2022-06-21] MEDS: TAMSULOSIN HCL 0.4 MG CAP PO SCH (20:06)
[2022-06-21] MEDS: ASCORBIC ACID 500 MG TAB PO SCH (20:07)
[2022-06-21] MEDS: CALCIUM 600MG + VIT D 400 IU TAB PO SCH (20:28)
[2022-06-22] MEDS ORDERED: hydrALAZINE HCL 20 MG/ML VIAL IV ONE (04:25)
[2022-06-22 06:28] LABS: Basophils # (auto) 0.01 K/uL (0-0.2); Basophils % (auto) 0.3 %; Hematocrit (blood only) 47.7 % (40.1-51.0); Hemoglobin 16.7 g/dl (14.0-18.0); Immature Granulocytes # (auto) 0.01 K/uL (0.00-0.02); Immature Granulocytes % (auto) 0.3 %; Lymphocytes # (auto) 0.75 K/uL (1.2-3.4); Lymphocytes % (auto) 19.1 %; Mean Corpuscular Hemoglobin 33.3 pg (25.0-34.0); Mean Corpuscular Volume 95.2 fL (80.0-100.0); Mean Platelet Volume 10.8 fL (9.4-12.4); Monocytes # (auto) 0.18 K/uL (0.24-0.82); Monocytes % (auto) 4.6 %; Neutrophils # (auto) 2.97 K/uL (1.4-6.5); Neutrophils % (auto) 75.7 %; Platelet Count 151 K/uL (130-400); RDW Coefficient of Variation 13.2 % (11.5-14.5); RDW Standard Deviation 46.1 fL (36.4-46.3); Red Blood Count 5.01 M/uL (4.63-6.08); White Blood Count 3.92 K/ul (4.8-10.8)
[2022-06-22 07:00] LABS: Albumin Globulin Ratio 1.3 (0.9-2); Albumin Level 3.7 gm/dl (3.4-5.0); Bilirubin,Total 0.7 mg/dl (0.2-1.0); C Reactive Protein 2.35 mg/dl (0-0.5); Creatinine Clr Calc Pharmacy 75.3 ml/min; Est GFR (African American) 96.2 ml/min; Globulin 2.9 gm/dl (2.5-4.0); Potassium 3.9 mmol/L (3.5-5.1); Total Protein 6.6 gm/dl (6.0-8.3)
[2022-06-22] MEDS ORDERED: bisacodyL 10 MG SUPP PR STA (07:07)
[2022-06-22] MEDS ORDERED: bisacodyL 5 MG TABEC PO ONE (07:29)
[2022-06-22] MEDS: ACETAMINOPHEN 325 MG TAB PO PRN (07:52)
[2022-06-22] MEDS: POTASSIUM CITRATE 10 MEQ TAB PO SCH ×3 (07:53→20:33)
[2022-06-22] MEDS: amLODIPine BESYLATE 5 MG TAB PO SCH (07:53)
[2022-06-22] MEDS: LOSARTAN POTASSIUM 25 MG TAB PO SCH (07:53)
[2022-06-22] MEDS: ASCORBIC ACID 500 MG TAB PO SCH ×2 (07:53→20:33)
[2022-06-22] MEDS: FINASTERIDE 5 MG TAB PO SCH (07:53)
[2022-06-22] MEDS: UMECLIDINIUM BROMIDE 62.5MCG/BLISTER 7 PUFFS/INHALER INH SCH (07:54)
[2022-06-22] MEDS: dexAMETHasone 6 MG in SYRINGE 0 ML IV SCH (12:45)
--- NOTE | 2022-06-22 13:39 | Hospitalist Progress Note ---
Date of Service June 22, 2022 Assessment & Plan (1) COVID: (2) Hypoxemia: (3) Rib fractures: (4) COPD (chronic obstructive pulmonary disease): (5) ZHANE (obstructive sleep apnea): (6) Hypertension: (7) BPH (benign prostatic hypertrophy): (8) Mild cognitive impairment: Plan COVID infection with hypoxia: -pt did not appeared to be in any respiratory distress on exam -pt is vaccinated against COVID x 4 -D dimer is elevated --- CTA chest: no PE but Patchy groundglass and interstitial densities within the bilateral lower lobes which have progressed Plan: Continue to monitor respiratory status; supplemental oxygen as needed to keep saturation above 92%. Continue on dexamethasone for now. Will provide total of 5 days. L side ribs fracture: -CTA chest: Nondisplaced acute left anterior sixth and seventh rib fractures. No pneumothorax. -pt takes tramadol 50mg BID for chronic pain at home Plan: Patient is unsure regarding the mechanism of the rib fracture. Continue pain control and incentive spirometry. COPD: -continue home inhaler regimen ZHANE on CPAP: -will continue CPAP inpt HTN/BPH/Dementia/GERD: -continue home meds Diet: heart healthy DVT PPx: Lovenox Code Status: FULL CODE Emergency Contact: Deborah- [phone] Admission and Anticipated Discharge Date Admission Date: June 21, 2022 Subjective Patient seen and examined at bedside. She is comfortable; not in any distress. He is in room air; not requiring any supplemental oxygen. He is afebrile. Review of Systems Review of Systems: All systems reviewed & are unremarkable except as noted in Subjective Physical Exam Physical Exam: General:.NAD, well developed, well nourished, average body habitus HEENT:.Normocephalic and atraumatic, Normal Conjunctiva, EOMI, Sclera is non- icteric Lungs:.TTP of the L lateral chest wall (near the axilla), no swelling or deformities, good air entry b/l with L lower lobe rales Heart:.Normal S1, S2, no murmur Abdominal:.ND, Soft, NT MSK:.No deformities of UE and LE, No leg edema Skin:.no rash or open wound Psych:.AAOx3, normal affect Results & Data Results & Data ([facility]) Vital Signs (Past 12 Hours) Vital Signs Temp Pulse Pulse Resp BP Pulse Ox O2 Del Method 06/22/22 08:00 Room Air 06/22/22 07:00 36.8 C 61 18 133/78 93 Room Air 06/22/22 07:00 90 06/22/22 03:42 36.8 C 46 L 19 184/84 H 94 CPAP 06/22/22 03:15 49 L 20 91 O2 Flow Rate 06/22/22 08:00 06/22/22 07:00 06/22/22 07:00 06/22/22 03:42 06/22/22 03:15 2 Laboratory Results Laboratory Results WBC 3.92 K/ul (4.8-10.8) L 06/22/22 06:11 RBC 5.01 M/uL (4.63-6.08) 06/22/22 06:11 Hgb 16.7 g/dl (14.0-18.0) 06/22/22 06:11 Hct 47.7 % (40.1-51.0) 06/22/22 06:11 MCV 95.2 fL (80.0-100.0) 06/22/22 06:11 MCH 33.3 pg (25.0-34.0) 06/22/22 06:11 MCHC 35.0 g/dL (32.0-36.0) 06/22/22 06:11 RDW Std Deviation 46.1 fL (36.4-46.3) 06/22/22 06:11 RDW Coeff of [place] 13.2 % (11.5-14.5) 06/22/22 06:11 Plt Count 151 K/uL (130-400) 06/22/22 06:11 MPV 10.8 fL (9.4-12.4) 06/22/22 06:11 Immature Gran % (Auto) 0.3 % 06/22/22 06:11 Neut % (Auto) 75.7 % 06/22/22 06:11 Lymph % (Auto) 19.1 % 06/22/22 06:11 [place] % (Auto) 4.6 % 06/22/22 06:11 Eos % (Auto) 0.0 % 06/22/22 06:11 Baso % (Auto) 0.3 % 06/22/22 06:11 Neut # (Auto) 2.97 K/uL (1.4-6.5) 06/22/22 06:11 Lymph # (Auto) 0.75 K/uL (1.2-3.4) L 06/22/22 06:11 [place] # (Auto) 0.18 K/uL (0.24-0.82) L 06/22/22 06:11 Eos # (Auto) 0.00 K/uL (0-0.50) 06/22/22 06:11 Baso # (Auto) 0.01 K/uL (0-0.2) 06/22/22 06:11 Immature Gran # (Auto) 0.01 K/uL (0.00-0.02) 06/22/22 06:11 PT 10.8 Seconds (9.0-12.0) 06/21/22 12:33 INR 1.0 (0.9-1.1) 06/21/22 12:33 APTT 26.0 Seconds (21.0-31.0) 06/21/22 12:33 PTT Ratio 0.9 06/21/22 12:33 D-Dimer 1740 ug/L FEU (0-500) H* 06/21/22 12:33 Sodium 137 mmol/L (136-145) 06/22/22 06:11 Potassium 3.9 mmol/L (3.5-5.1) 06/22/22 06:11 Chloride 106 mmol/L (98-107) 06/22/22 06:11 Carbon Dioxide 22 mmol/L (21-32) 06/22/22 06:11 Anion Gap 9 (3-11) 06/22/22 06:11 BUN 15 mg/dl (6-23) 06/22/22 06:11 Creatinine 0.79 mg/dl (0.6-1.4) 06/22/22 06:11 Est Cr Clr Drug Dosing 75.3 ml/min 06/22/22 06:11 Est GFR ( Amer) 96.2 ml/min 06/22/22 06:11 Est GFR (Non-Af Amer) 83.0 ml/min 06/22/22 06:11 BUN/Creatinine Ratio 19.0 (10-20) 06/22/22 06:11 Glucose 117 mg/dl (70-99(Fasting)) H 06/22/22 06:11 Calcium 9.0 mg/dl (8.5-10.1) 06/22/22 06:11 Magnesium 2.0 mg/dl (1.7-2.4) 06/22/22 06:11 Total Bilirubin 0.7 mg/dl (0.2-1.0) 06/22/22 06:11 AST 16 U/L (13-39) 06/22/22 06:11 ALT 14 U/L (7-52) 06/22/22 06:11 Alkaline Phosphatase 66 U/L (34-104) 06/22/22 06:11 Troponin I High Sens 18.5 pg/ml (0-20) 06/21/22 12:33 C-Reactive Protein 2.35 mg/dl (0-0.5) H 06/22/22 06:11 Total Protein 6.6 gm/dl (6.0-8.3) 06/22/22 06:11 Albumin 3.7 gm/dl (3.4-5.0) 06/22/22 06:11 Globulin 2.9 gm/dl (2.5-4.0) 06/22/22 06:11 Albumin/Globulin Ratio 1.3 (0.9-2) 06/22/22 06:11 Lipase 9 U/L (11-82) L 06/21/22 12:33 Procalcitonin < 0.05 ng/ml (0-0.5) 06/21/22 12:33 SARS-CoV-2 (PCR) POSITIVE (Negative) A* 06/21/22 13:17 Impressions Chest X-Ray 06/21/22 12:37 XR chest 1V portable HISTORY: Atypical Chest Pain COMPARISON: Chest 01/27/2019. FINDINGS: No pneumothorax. Emphysema. Progressive interstitial thickening at the lung bases. The upper lung zones are clear. The heart is top normal in size. There is a tortuous thoracic aorta. Emphysema is noted. IMPRESSION: 1. Progressive interstitial thickening at the lung bases suggestive of an interstitial pneumonitis. This could be due to a viral process. 2. Emphysema. ACT 112: Negative or not required by law. Electronically signed by: Joby Salazar M.D. 06/21/2022 1:08 PM Chest CTA 06/21/22 13:12 CHEST CTA for PULMONARY ARTERIES CT DOSE: 570.45 mGy.cm HISTORY: Left-sided chest pain. Shortness of breath. TECHNIQUE: Multiaxial CT images of the chest were performed following the intravenous administration of contrast to evaluate the pulmonary arteries. Maximal intensity projection images were also obtained. A dose lowering technique was utilized adhering to the principles of ALARA. COMPARISON STUDY: Chest CTA 10/13/2017. FINDINGS: There is an old mild anterior wedge-shaped compression deformity at T11. Acute left anterior sixth and seventh rib fractures. No additional fractures identified within the chest. Limited views of the upper abdomen demonstrate normal liver, spleen, and adrenal glands. The thyroid gland enhances normally. Normal caliber esophagus. No pleural or pericardial effusions. The heart is normal in size. No mediastinal or hilar lymphadenopathy. Mild calcified plaque within the normal caliber thoracic aorta. No evidence for an aortic dissection. No filling defects within the pulmonary arteries to suggest a pulmonary embolus. No pneumothorax. Moderate emphysema. Calcified granuloma within the lingula. Patchy groundglass and interstitial densities within the bilateral lower lobes have progressed. This could represent a low-grade pneumonia or atelectasis. Mild bronchial wall thickening within the bilateral lower lobes. Stable 8 mm subpleural nodule within the periphery the right lower lobe on image 74. This is likely benign given the long-term stability. IMPRESSION: 1. No evidence for pulmonary embolus. 2. Nondisplaced acute left anterior sixth and seventh rib fractures. No pneumothorax. 3. Patchy groundglass and interstitial densities within the bilateral lower lobes which have progressed. This could represent atelectasis or developing pneumonia. 4. Stable 8 mm right lower lobe pulmonary nodule. This is likely benign given the long-term stability. ACT 112: Negative or not required by law. Electronically signed by: Joby Salazar M.D. 06/21/2022 2:08 PM (1) Rib fractures Encounter type: initial encounter Fracture type: closed Laterality: left Qualified Code(s): S22.42XA - Multiple fractures of ribs, left side, initial encounter for closed fracture (2) COPD (chronic obstructive pulmonary disease) COPD type: unspecified COPD Qualified Code(s): J44.9 - Chronic obstructive pulmonary disease, unspecified
[2022-06-22] MEDS ORDERED: POLYETHYLENE (MIRALAX) 17 GM PACK PO STA (16:17)
[2022-06-22] MEDS ORDERED: MAGNESIUM HYDROXIDE SUSP 30 ML UDC PO ONE (16:17)
[2022-06-22] MEDS: ENOXAPARIN INJ 40 MG/0.4 ML SYR SQ SCH (17:58)
[2022-06-22] MEDS: TAMSULOSIN HCL 0.4 MG CAP PO SCH (20:32)
[2022-06-22] MEDS: POLYETHYLENE (MIRALAX) 17 GM PACK PO SCH (20:32)
[2022-06-22] MEDS: CALCIUM 600MG + VIT D 400 IU TAB PO SCH (20:32)
[2022-06-22] MEDS: DONEPEZIL HCL 5 MG TAB PO SCH (20:34)
[2022-06-22] MEDS: PSYLLIUM or GUAR GUM FIBER POWDER PACKET PO SCH (20:58)
[2022-06-23] MEDS ORDERED: bisacodyL 10 MG SUPP PR ONE (06:42)
[2022-06-23] MEDS: amLODIPine BESYLATE 5 MG TAB PO SCH (07:21)
[2022-06-23] MEDS: FINASTERIDE 5 MG TAB PO SCH (07:22)
[2022-06-23] MEDS: POTASSIUM CITRATE 10 MEQ TAB PO SCH (07:22)
[2022-06-23] MEDS: dexAMETHasone 6 MG in SYRINGE 0 ML IV SCH (07:22)
[2022-06-23] MEDS: UMECLIDINIUM BROMIDE 62.5MCG/BLISTER 7 PUFFS/INHALER INH SCH (07:22)
[2022-06-23] MEDS: ASCORBIC ACID 500 MG TAB PO SCH (07:22)
[2022-06-23] MEDS: LOSARTAN POTASSIUM 25 MG TAB PO SCH (07:22)
[2022-06-23] MEDS: ACETAMINOPHEN 325 MG TAB PO PRN (07:32)
[2022-06-23 08:44] LABS: Albumin Globulin Ratio 1.4 (0.9-2); Albumin Level 3.7 gm/dl (3.4-5.0); BUN Creatinine Ratio 14.4 (10-20); Bilirubin,Total 0.6 mg/dl (0.2-1.0); Est GFR (African American) 91.2 ml/min; Est GFR (Non-African American) 78.7 ml/min; Globulin 2.7 gm/dl (2.5-4.0); Total Protein 6.4 gm/dl (6.0-8.3)
[2022-06-23 09:19] LABS: Basophils # (auto) 0.01 K/uL (0-0.2); Basophils % (auto) 0.2 %; Hematocrit (blood only) 45.9 % (40.1-51.0); Hemoglobin 16.2 g/dl (14.0-18.0); Immature Granulocytes # (auto) 0.01 K/uL (0.00-0.02); Immature Granulocytes % (auto) 0.2 %; Lymphocytes # (auto) 1.14 K/uL (1.2-3.4); Lymphocytes % (auto) 17.8 %; Mean Corpuscular Hgb Conc 35.3 g/dL (32.0-36.0); Mean Corpuscular Volume 96.2 fL (80.0-100.0); Monocytes # (auto) 0.45 K/uL (0.24-0.82); Neutrophils # (auto) 4.78 K/uL (1.4-6.5); Neutrophils % (auto) 74.8 %; Platelet Count 166 K/uL (130-400); RDW Coefficient of Variation 13.2 % (11.5-14.5); RDW Standard Deviation 47.1 fL (36.4-46.3); Red Blood Count 4.77 M/uL (4.63-6.08); White Blood Count 6.39 K/ul (4.8-10.8)
--- NOTE | 2022-06-23 17:58 | Discharge Summary ---
Date of Service June 23, 2022 Admission HPI Per Admitting Provider Pt is a 82 y/o M with hx of COPD, ZHANE on CPAP, HTN, BPH, DJD on Tramadol, DDD, Vit b12 def, GERD, and mild cognitive impairment came into the ER with L lateral chest wall pain that started yesterday. Pt also complained of cough, rhinorrhea for 3 days. Denied any acute fall, fever, or SOB. He is vaccinated against COVID x4. At bedside: complained of L lateral chest wall, worsens with movement. Denied any SOB, CP, N/V. Admission Exam Per Admitting Provider General:.NAD, well developed, well nourished, average body habitus HEENT:.Normocephalic and atraumatic, Normal Conjunctiva, EOMI, Sclera is non- icteric Lungs:.TTP of the L lateral chest wall (near the axilla), no swelling or deformities, good air entry b/l with L lower lobe rales Heart:.Normal S1, S2, no murmur Abdominal:.ND, Soft, NT MSK:.No deformities of UE and LE, No leg edema Skin:.no rash or open wound Psych:.AAOx3, normal affect Principal Diagnosis (1) COVID: (2) Hypoxemia: (3) Rib fractures: (4) COPD (chronic obstructive pulmonary disease): (5) ZHANE (obstructive sleep apnea): (6) Hypertension: (7) BPH (benign prostatic hypertrophy): (8) Mild cognitive impairment: Discharge Exam General:.NAD, well developed, well nourished, average body habitus HEENT:.Normocephalic and atraumatic, Normal Conjunctiva, EOMI, Sclera is non- icteric Lungs:.TTP of the L lateral chest wall (near the axilla), no swelling or deformities, good air entry b/l with L lower lobe rales Heart:.Normal S1, S2, no murmur Abdominal:.ND, Soft, NT MSK:.No deformities of UE and LE, No leg edema Skin:.no rash or open wound Psych:.AAOx3, normal affect Discharge Data Allergies Allergy/AdvReac Type Severity Reaction Status Date / Time No Known Drug Allergies Allergy Verified 06/02/22 13:16 Consultations 06/21/22 14:41 ED Decision to Admit Stat Ordered Studies 06/21/22 13:12 CT angio chest PE protocol Stat Hospital Course (1) COVID: (2) Hypoxemia: (3) Rib fractures: (4) COPD (chronic obstructive pulmonary disease): (5) ZHANE (obstructive sleep apnea): (6) Hypertension: (7) BPH (benign prostatic hypertrophy): (8) Mild cognitive impairment: Plan Patient is a 82 y/o M with hx of COPD, ZHANE on CPAP, HTN, BPH, DJD on Tramadol, DDD, Vit b12 def, GERD, and mild cognitive impairment came into the ER with L lateral chest wall pain that started yesterday. Patient also complained of cough, rhinorrhea for 3 days. He was vaccinated for COVID x4. CT angio chest showed patchy groundglass opacities likely secondary to COVID infection. Patient was started on dexamethasone. Patient's oxygenation improved and he was transitioned from nasal cannula to room air a day after the hospitalization. He was discharged on dexamethasone 6 mg tablets for 3 more days to complete a 5-day course. He was instructed to follow-up with his PCP. Total Time Total Time Spent Total Time Spent (In Minutes): 25 Total Time Includes: Examination of the Patient, Discharge Planning, Medication Reconciliation, Communication With Other Providers and Other Discharge Plan Discharge Items Patient Disposition: Home - Self-Care Reason For Visit: RIB FRACTURE AND COVID INFECTION Discharge Diagnosis: Covid Infection Rib Fracture Activity: Resume your previous activity Non-emergency contact: Primary Care Provider Call non-emergency contact if: you have any medication questions and your pain is concerning for you Follow-up/Referrals: Teofilo Krishnamurthy DO [Primary Care Provider] - (Date & Time 06/25/2022 11:20 AM Provider Teofilo Krishnamurthy DO Department [facility] [address], [place] ) Diet: Regular Addtl Attending Provider Instructions: You are admitted here with Covid infection. Please continue to wear mask for next 7 days. You are prescribed Dexamethasone 6 mg tablets to be taken once daily for next 3 days. Please follow up with your PCP in one week. Pending Studies at Discharge: No Stand-Alone Forms: My [employer], Smoking Cessation Medications and DC Order Prescriptions: New dexamethasone 6 mg tablet 6 mg PO DAILY Qty: 3 0RF Continued Incruse Ellipta 62.5 mcg/actuation blister with device 1 inh inhalation DAILY Qty: 30 2RF finasteride 5 mg tablet 5 mg PO DAILY Qty: 90 3RF calcium citrate-vitamin D2 250-100 mg-unit tablet 1 tab PO PM docusate sodium 100 mg capsule 100 mg PO BID PRN (Reason: Constipation) Qty: 60 donepezil 5 mg tablet 5 mg PO HS losartan 25 mg tablet 25 mg PO QAM ascorbic acid (vitamin C) 500 mg tablet 500 mg PO BID potassium citrate 10 mEq (1,080 mg) tablet extended release 10 meq PO TID Benefiber Healthy Shape 5 gram/7.4 gram powder 4 gm PO HS diclofenac sodium 1 % gel 2 gm TOP BID PRN (Reason: Pain) polyethylene glycol 3350 [Miralax] 17 gram/dose powder 17 gm PO HS omeprazole 20 mg capsule,delayed release(DR/EC) 20 mg PO DAILY tramadol 50 mg tablet 50 mg PO BID PRN (Reason: Pain) amlodipine 5 mg tablet 5 mg PO DAILY tamsulosin 0.4 mg capsule 0.4 mg PO HS Discharge Orders: Discharge Order (Routine); Ordered 06/23/22 Ordered By: Cornelius Cook/Other Patient Handouts: Simple Ways to Avoid COVID-19, COVID-19 Home Care, Rib Fracture (Broken Rib) Admission Data Admit Date/Time: 06/21/22 15:13 Attending Provider: Cornelius Mast Admit Provider: Corky Walsh Primary Care Provider: Teofilo Krishnamurthy Other Providers: Corky Walsh Other Interventions: Discharge Summary Assessment (RN) Last Done: 06/23/22 10:16
--- NOTE | 2022-07-02 09:15 | Coding Query ---
To promote full compliance with coding requirements relating to patient care, physician participation is requested in all cases of fur drummer uncertainty. Please assist us with the question(s) below: Coding Question(s): It was noted throughout the record that the patient has/is suspected to have osteoporosis. According to coding guidelines "a code for osteoporotic fracture, and not a traumatic fracture, should be used for any patient with known osteoporosis who suffers a fracture, even if the patient had a minor fall or trauma, if that fall or trauma would not usually break a normal, healthy bone." Please indicate below the type of fracture: Physician's Response(s): ( ) Osteoporotic fracture of Ribs ( ) Traumatic fracture of Ribs ( ) Other, please specify (x ) Unable to be determined MTDD
== END 2022-06-23 11:31 | disposition home or self-care (01) | DRG 178 ==
LOC: ED 12:13 → 2W 15:13 → SUATTDRO 15:13 → 2W 17:22

== ENCOUNTER 2022-06-30 18:26 | Inpatient (IN) ==
[2022-06-30 20:19] LABS: Basophils # (auto) 0.02 K/uL (0-0.2); Basophils % (auto) 0.2 %; Eosinophils # (auto) 0.04 K/uL (0-0.50); Eosinophils % (auto) 0.4 %; Hematocrit (blood only) 47.7 % (40.1-51.0); Hemoglobin 16.4 g/dl (14.0-18.0); Immature Granulocytes # (auto) 0.03 K/uL (0.00-0.02); Immature Granulocytes % (auto) 0.3 %; Lymphocytes # (auto) 1.38 K/uL (1.2-3.4); Lymphocytes % (auto) 13.9 %; Mean Corpuscular Hemoglobin 33.3 pg (25.0-34.0); Mean Corpuscular Hgb Conc 34.4 g/dL (32.0-36.0); Mean Platelet Volume 11.1 fL (9.4-12.4); Monocytes # (auto) 1.25 K/uL (0.24-0.82); Monocytes % (auto) 12.6 %; Neutrophils # (auto) 7.22 K/uL (1.4-6.5); Neutrophils % (auto) 72.6 %; Platelet Count 122 K/uL (130-400); Platelet Estimate Normal (Normal); RDW Standard Deviation 46.9 fL (36.4-46.3); Red Blood Count 4.92 M/uL (4.63-6.08); Troponin I High Sensitivity 19.5 pg/ml (0-20); White Blood Count 9.94 K/ul (4.8-10.8)
--- NOTE | 2022-06-30 20:19 | XRay Report ---
XR chest 1V portable CLINICAL HISTORY: Chest Pain TECHNIQUE: Single frontal radiograph of the chest was obtained. Comparison: Comparison is made to chest radiograph 06/21/2022 FINDINGS: No lines and tubes are seen. Cardiomegaly is noted. The lungs are clear. No evidence of pleural effus ion or pneumothorax. IMPRESSION: Cardiomegaly without acute abnormality. ACT 112: Negative or not required by law. Electronically signed by: Mariano Betts M.D. 06/30/2022 8:18 PM
[2022-06-30 20:25] LABS: Alanine Aminotransferase 23 U/L (7-52); Albumin Globulin Ratio 1.1 (0.9-2); Albumin Level 3.5 gm/dl (3.4-5.0); Alkaline Phosphatase 67 U/L (34-104); Anion Gap 9 (3-11); BUN Creatinine Ratio 15.4 (10-20); Bilirubin,Total 1.2 mg/dl (0.2-1.0); Blood Urea Nitrogen 14 mg/dl (6-23); Calcium 8.9 mg/dl (8.5-10.1); Carbon Dioxide 20 mmol/L (21-32); Chloride 106 mmol/L (98-107); Est GFR (Non-African American) 77.7 ml/min; Globulin 3.1 gm/dl (2.5-4.0); Glucose 99 mg/dl (70-99(Fasting)); Sodium 135 mmol/L (136-145); Total Protein 6.6 gm/dl (6.0-8.3)
[2022-06-30] MEDS ORDERED: ONDANSETRON 4 MG OD TAB PO STA (20:55)
[2022-06-30] MEDS ORDERED: HYDROCODONE/ACETAMOPHEN 5/325MG TAB PO ONE (20:55)
[2022-06-30 21:30] LABS: Partial Thromboplastin Ratio 0.9
[2022-06-30 21:33] LABS: Potassium 4.1 mmol/L (3.5-5.1)
[2022-06-30] MEDS ORDERED: MoRPHine SULFATE 4 MG/ML 1 ML CARP\\VIAL IV STA (21:40)
[2022-06-30] MEDS ORDERED: KETOROLAC TROMETHAMINE 15 MG/ML VIAL IV PRN (21:53)
[2022-06-30] MEDS ORDERED: dexAMETHasone 6 MG in SYRINGE 0 ML IV ONE (22:01)
--- NOTE | 2022-06-30 22:08 | Emergency Department Note ---
History of Present Illness General Chief complaint: Rib Injury/Pain Stated complaint: CRACKED RIB, PAIN GETTING WORSE Time Seen by Provider: 06/30/22 20:39 History of Present Illness Provider complaint: Left-sided chest pain Onset (ago): day(s) 1 Location: chest and left Radiation: extremity (Left upper extremity) Severity: moderate Pain Consistency: + intermittent Maximum Pain Intensity: 7 Current Pain Intensity: 7 Quality: + stabbing and + sharp Relieved By: + none Exacerbated By: + movement and + other (inspiration) Associated symptoms: + chest pain and + shortness of breath; no cough, no headaches or no nausea/vomiting 2-year-old male presents emergency department for left-sided chest pain. Patient reports his left-sided chest pain radiates to his left upper extremity. He reports that movement and inspiration causes the pain. He states that he is recently diagnosed with a left-sided rib fracture. He states that he was discharged home however when he got home he was not discharged with any pain medication and it hurts when he takes a deep breath. Denies any cough or fever. Home Medications Medication Instructions Recorded Confirmed Type ascorbic acid (vitamin C) 500 mg 500 mg PO BID 06/14/19 06/21/22 History tablet calcium cit 250 mg-ergocalciferol 1 tab PO PM 06/14/19 06/21/22 History (vit D2) 2.5 mcg (100 unit) tablet docusate sodium 100 mg capsule 100 mg PO BID PRN Constipation #60 06/14/19 06/21/22 History caps donepezil 5 mg tablet 5 mg PO HS 06/14/19 06/21/22 History losartan 25 mg tablet 25 mg PO QAM 06/14/19 06/21/22 History tramadol 50 mg tablet 50 mg PO BID PRN Pain 08/18/19 06/21/22 History diclofenac sodium 1 % topical gel 2 gm topical BID PRN Pain 01/18/20 06/21/22 History omeprazole 20 mg capsule,delayed 20 mg PO DAILY 01/18/20 06/21/22 History release polyethylene glycol 3350 17 17 gm PO HS 01/18/20 06/21/22 History gram/dose oral powder (Miralax) potassium citrate 10 mEq (1,080 10 meq PO TID 01/18/20 06/21/22 History mg) tablet,extended release wheat dextrin 5 gram/7.4 gram oral 4 gm PO HS 01/18/20 06/21/22 History powder (Benefiber Healthy Shape) umeclidinium 62.5 mcg/actuation 1 inh inhalation DAILY #30 ea 01/14/22 06/21/22 Rx blister powder for inhalation (Incruse Ellipta) finasteride 5 mg tablet 5 mg PO DAILY #90 tabs 06/10/22 06/21/22 Rx amlodipine 5 mg tablet 5 mg PO DAILY 06/21/22 06/21/22 History tamsulosin 0.4 mg capsule 0.4 mg PO HS 06/21/22 06/21/22 History dexamethasone 6 mg tablet 6 mg PO DAILY #3 tabs 06/23/22 Rx Allergies Allergy/AdvReac Type Severity Reaction Status Date / Time No Known Drug Allergies Allergy Verified 06/02/22 13:16 Past Med/Surg History Medical History BPH (benign prostatic hyperplasia) Chronic obstructive pulmonary disease CAN'T REMEMBER LAST RES. INH USE - LONG TIME GERD (gastroesophageal reflux disease) Hearing deficit Hypertension Inguinal hernia Kidney stones Memory changes Mild cognitive impairment Osteoarthritis Osteoporosis Sleep apnea CPAP Surgical History History of ankle surgery TITANIUM TO LEFT ANKLE History of cholecystectomy History of colonoscopy History of foot surgery right foot - big toe - 10/14/2002 History of herniorrhaphy History of lithotripsy History of shoulder surgery Left History of surgery on wrist LEFT Family History Mother Cancer Father , Spontaneous rupture of kidney Sudden Other No family history of allergies Social History Smoking Status: Former smoker Tobacco Type: Cigarettes Age Started Using Tobacco: 17; Age Quit Using Tobacco: 49; packs per day: 1; Number of Years Since Quit: 30; Second Hand Exposure: No; Hx Alcohol Use: Yes Alcohol type: wine and hard liquor Alcohol type Comment: bottle of blackberry aranza x/month Hx Substance Use: No Preferred Language: Monegasque Communication Ability: Effective Form Grader Required: No Beliefs That Will Affect Care: None marital status: Current Living Situation: Spouse current occupational status: retired Feels Safe at Home: Yes Assistive Devices: None Review of Systems A total of 10 systems reviewed and were otherwise negative Physical Exam Vital Signs Vital Signs - 24 hr 06/30/22 19:00 06/30/22 21:00 06/30/22 21:36 Temperature 37.4 C Temperature Source Oral Pulse Rate 94 H Pulse Rate [Finger] 80 Respiratory Rate 20 18 Respiratory Effort / Characteristics Non-Labored Spontaneous Respiratory Depth Normal Blood Pressure 157/78 H Blood Pressure Mean 104 Pulse Oximetry 88 L 91 85 L Oxygen Delivery Method Room Air Room Air Oxygen Flow Rate Sepsis Recent Fever Within 48 Hours No Sepsis New/Unexplained Change in Mental Status No Sepsis Action Taken by Nursing No Action Required 06/30/22 21:38 Temperature Temperature Source Pulse Rate Pulse Rate [Finger] Respiratory Rate Respiratory Effort / Characteristics Respiratory Depth Blood Pressure Blood Pressure Mean Pulse Oximetry 92 Oxygen Delivery Method Nasal Cannula Oxygen Flow Rate 2 Sepsis Recent Fever Within 48 Hours Sepsis New/Unexplained Change in Mental Status Sepsis Action Taken by Nursing Physical Exam GENERAL: He is oriented to person, place, and time. He appears well-developed and well-nourished. He does not appear distressed. HENT: Exam performed. - Head: Normocephalic and atraumatic. - Right Ear: External ear normal. No mastoid tenderness. - Left Ear: External ear normal. No mastoid tenderness. - Mouth/Throat: The oropharynx is clear and moist. No trismus in the jaw. No dental abscesses or uvula swelling. No oropharyngeal exudate or tonsillar abscesses. EYES: Conjunctivae and EOM are normal. Pupils are equal, round, and reactive to light. Right eye exhibits no discharge. Left eye exhibits no discharge. No scleral icterus. NECK: Normal range of motion. Neck supple. No JVD present. No spinous process tenderness present. No carotid bruit present. No rigidity. No tracheal deviation and normal range of motion present. No Brudzinski's sign and no Kernig's sign noted. CV: Normal rate, regular rhythm, normal heart sounds and intact distal pulses. There is no peripheral edema. Palpable radial pulses bue. PULM/CHEST: Effort normal and breath sounds normal. No respiratory distress. No stridor. He has no wheezes. He has no rales. ABD: The abdomen is soft. Bowel sounds are normal. He has no distension. No mass is present. There is no tenderness. There is no rebound, no guarding, no Flores's sign and no tenderness at McBurney's point. Rovsig negative. MUSC/SKEL: Normal range of motion. There is no peripheral edema, tenderness or deformity. LYMPH: No cervical adenopathy. NEURO: He is alert and oriented to person, place, and time. He has normal s trength. No cranial nerve deficit or sensory deficit. Coordination and gait normal. GCS eye subscore is 4. GCS verbal subscore is 5. GCS motor subscore is 6. Cerebellar tests wnl. SKIN: Skin is warm and dry. He is not diaphoretic. PSYCH: He has a normal mood and affect. Behavior is normal. Judgment and thought content normal. Course Course 2038: The patient was evaluated in room A3. A complete history and physical exam was performed Administered Medications Discontinued Medications Hydrocodone Bitart/Acetaminophen (Hydrocodone/Acetamophen 5/325mg Tab) 1 tab PO ONCE ONE Stop: 06/30/22 20:56 Last Admin: 06/30/22 21:09 Dose: 1 tab Documented By: ISIS Morphine Sulfate (Morphine Sulfate 4 Mg/Ml 1 Ml Carp\Vial) 4 mg IV NOW STA Stop: 06/30/22 21:41 Last Admin: 06/30/22 21:45 Dose: 4 mg Documented By: BRUNILDA Ondansetron HCl (Ondansetron 4 Mg Od Tab) 4 mg PO NOW STA Stop: 06/30/22 20:56 Last Admin: 06/30/22 21:09 Dose: 4 mg Documented By: ISIS Critical Care Time Critical Care Time: Yes Total Critical Care Time: 38 I have personally spent greater than 38 minutes of critical care time in the direct management of this patient. This includes bedside care, interpretation of diagnostic studies, and testing, discussion with consultants, patient, and family members, and other required patient management activities. This 38 minutes is in excess of all separately billable procedures. Medical Decision Making Laboratory Data Result diagrams: 06/30/22 19:40 06/30/22 20:49 Lab Results 06/30/22 06/30/22 06/30/22 Range/Units 19:40 19:40 19:40 WBC 9.94 (4.8-10.8) K/ul RBC 4.92 (4.63-6.08) M/uL Hgb 16.4 (14.0-18.0) g/dl Hct 47.7 (40.1-51.0) % MCV 97.0 (80.0-100.0) fL MCH 33.3 (25.0-34.0) pg MCHC 34.4 (32.0-36.0) g/dL RDW Std Deviation 46.9 H (36.4-46.3) fL RDW Coeff of [place] 13.0 (11.5-14.5) % Plt Count 122 L (130-400) K/uL MPV 11.1 (9.4-12.4) fL Immature Gran % (Auto) 0.3 % Neut % (Auto) 72.6 % Lymph % (Auto) 13.9 % [place] % (Auto) 12.6 % Eos % (Auto) 0.4 % Baso % (Auto) 0.2 % Neut # (Auto) 7.22 H (1.4-6.5) K/uL Lymph # (Auto) 1.38 (1.2-3.4) K/uL [place] # (Auto) 1.25 H (0.24-0.82) K/uL Eos # (Auto) 0.04 (0-0.50) K/uL Baso # (Auto) 0.02 (0-0.2) K/uL Immature Gran # (Auto) 0.03 H (0.00-0.02) K/uL Platelet Estimate Normal (Normal) PT Cancelled INR Cancelled APTT Cancelled PTT Ratio Cancelled Sodium 135 L (136-145) mmol/L Potassium TNP Chloride 106 (98-107) mmol/L Carbon Dioxide 20 L (21-32) mmol/L Anion Gap 9 (3-11) BUN 14 (6-23) mg/dl Creatinine 0.91 (0.6-1.4) mg/dl Est Cr Clr Drug Dosing 67.0 ml/min Est GFR ( Amer) 90.0 ml/min Est GFR (Non-Af Amer) 77.7 ml/min BUN/Creatinine Ratio 15.4 (10-20) Glucose 99 (70-99(Fasting)) mg/dl Calcium 8.9 (8.5-10.1) mg/dl Total Bilirubin 1.2 H (0.2-1.0) mg/dl AST TNP ALT 23 (7-52) U/L Alkaline Phosphatase 67 (34-104) U/L Troponin I High Sens 19.5 (0-20) pg/ml Total Protein 6.6 (6.0-8.3) gm/dl Albumin 3.5 (3.4-5.0) gm/dl Globulin 3.1 (2.5-4.0) gm/dl Albumin/Globulin Ratio 1.1 (0.9-2) SARS-CoV-2, RNA, NAAT (NEGATIVE) 06/30/22 06/30/22 06/30/22 Range/Units 20:49 20:49 21:41 WBC (4.8-10.8) K/ul RBC (4.63-6.08) M/uL Hgb (14.0-18.0) g/dl Hct (40.1-51.0) % MCV (80.0-100.0) fL MCH (25.0-34.0) pg MCHC (32.0-36.0) g/dL RDW Std Deviation (36.4-46.3) fL RDW Coeff of [place] (11.5-14.5) % Plt Count (130-400) K/uL MPV (9.4-12.4) fL Immature Gran % (Auto) % Neut % (Auto) % Lymph % (Auto) % [place] % (Auto) % Eos % (Auto) % Baso % (Auto) % Neut # (Auto) (1.4-6.5) K/uL Lymph # (Auto) (1.2-3.4) K/uL [place] # (Auto) (0.24-0.82) K/uL Eos # (Auto) (0-0.50) K/uL Baso # (Auto) (0-0.2) K/uL Immature Gran # (Auto) (0.00-0.02) K/uL Platelet Estimate (Normal) PT 11.0 INR 1.0 APTT 26.0 PTT Ratio 0.9 Sodium (136-145) mmol/L Potassium 4.1 Chloride (98-107) mmol/L Carbon Dioxide (21-32) mmol/L Anion Gap (3-11) BUN (6-23) mg/dl Creatinine (0.6-1.4) mg/dl Est Cr Clr Drug Dosing ml/min Est GFR ( Amer) ml/min Est GFR (Non-Af Amer) ml/min BUN/Creatinine Ratio (10-20) Glucose (70-99(Fasting)) mg/dl Calcium (8.5-10.1) mg/dl Total Bilirubin (0.2-1.0) mg/dl AST 13 ALT (7-52) U/L Alkaline Phosphatase (34-104) U/L Troponin I High Sens (0-20) pg/ml Total Protein (6.0-8.3) gm/dl Albumin (3.4-5.0) gm/dl Globulin (2.5-4.0) gm/dl Albumin/Globulin Ratio (0.9-2) SARS-CoV-2, RNA, NAAT POSITIVE A* (NEGATIVE) Imaging Data Radiologist's Impression: Chest X-Ray 06/30/22 19:04 XR chest 1V portable CLINICAL HISTORY: Chest Pain TECHNIQUE: Single frontal radiograph of the chest was obtained. Comparison: Comparison is made to chest radiograph 06/21/2022 FINDINGS: No lines and tubes are seen. Cardiomegaly is noted. The lungs are clear. No evidence of pleural effusion or pneumothorax. IMPRESSION: Cardiomegaly without acute abnormality. ACT 112: Negative or not required by law. Electronically signed by: Mariano Betts M.D. 06/30/2022 8:18 PM ECG Data Indication: + chest pain Rate (beats per minute): 70 Rhythm: + atrial flutter ECG ST segments: + Normal ST segments Additional Comments: QRS 66 QTC 400 MDM Narrative Cardiac monitoring: An order was placed for continuous cardiac monitoring. The monitor shows a rate of 70 with sinus rhythm Patient was seen during a time of extreme volume and extreme acuity in the emergency department. Nursing triage protocols were initiated and labs were drawn by protocol in the triage area. Was found to be hypoxic on room air. Supplemental oxygen via nasal cannula was applied to the patient. Labs and imaging within normal limits. No leukocytosis no troponin elevation no pneumonia on chest x-ray. Did test positive for COVID-19. EMR reviewed. Patient was admitted to the hospital from June 21 to June 23. On June [address] the patient had a CT of the chest which showed no pulmonary embolus no pneumothorax but did show the rib fractures. The patient did test positive for COVID-19. Given that the patient is today hypoxic, it is thought is most likely due to the pain from his rib fracture however given he is still COVID-positive we will give the patient Decadron 6 mg. Patient will be admitted to the [facility] hospitalist team Dr. Bird notified. Impression & Plan Hypoxia, COVID, Closed rib fracture Discharge Plan Visit Data Chief Complaint: Rib Injury/Pain Stated Complaint: CRACKED RIB, PAIN GETTING WORSE ED Provider: Richard Hays Discharge Problem: Hypoxia, COVID, Closed rib fracture Patient Disposition: Admitted As Inpatient Forms Stand Alone Forms: [facility] Prescriptions Prescriptions: No Action Incruse Ellipta 62.5 mcg/actuation blister with device 1 inh inhalation DAILY Qty: 30 2RF finasteride 5 mg tablet 5 mg PO DAILY Qty: 90 3RF calcium citrate-vitamin D2 250-100 mg-unit tablet 1 tab PO PM docusate sodium 100 mg capsule 100 mg PO BID PRN (Reason: Constipation) Qty: 60 donepezil 5 mg tablet 5 mg PO HS losartan 25 mg tablet 25 mg PO QAM ascorbic acid (vitamin C) 500 mg tablet 500 mg PO BID potassium citrate 10 mEq (1,080 mg) tablet extended release 10 meq PO TID Benefiber Healthy Shape 5 gram/7.4 gram powder 4 gm PO HS diclofenac sodium 1 % gel 2 gm TOP BID PRN (Reason: Pain) polyethylene glycol 3350 [Miralax] 17 gram/dose powder 17 gm PO HS omeprazole 20 mg capsule,delayed release(DR/EC) 20 mg PO DAILY tramadol 50 mg tablet 50 mg PO BID PRN (Reason: Pain) amlodipine 5 mg tablet 5 mg PO DAILY tamsulosin 0.4 mg capsule 0.4 mg PO HS dexamethasone 6 mg tablet 6 mg PO DAILY Qty: 3 0RF Referrals Referrals: Teofilo Krishnamurthy DO [Primary Care Provider] -
[2022-06-30 22:44] LABS: Magnesium 2.1 mg/dl (1.7-2.4)
--- NOTE | 2022-06-30 23:04 | History & Physical Report ---
Date of Service June 30, 2022 Assessment & Plan (1) Acute hypoxemic respiratory failure: Plan: Secondary to uncontrolled pain from left-sided rib fractures Underlying COPD Recent COVID-19 pneumonia Symptoms resolved after Decadron Rx hypertension, slightly elevated secondary discomfort cognitive impairment past tobacco abuse Medical telemetry Supplemental O2 Baseline ABG Lidoderm patch trial Vicodin as needed breakthrough pain Incentive spirometry DVT prophylaxis per Lovenox subcu Full code Text document was generated using [employer] voice recognition software. It may contain grammatical or spelling errors. Kindly contact undersigned for clarification of any documentation item in question. History of Present Illness Chief Complaint: Uncontrolled rib fracture pain Primary Care Provider: Teofilo Krishnamurthy DO History obtained from patient and records. Medical history significant for COPD, hypertension, BPH, GERD, cognitive impairment, past tobacco abuse. Recent confinement last week for COVID-19 pneumonia. Nondisplaced acute left anterior sixth and seventh rib fractures on CT chest. Patient discharged on Decadron course. Patient initially comfortable following discharge from the hospital. After a few days, patient noted intractable pain from left-sided rib fractures. Shortness of breath from inability to take a deep breath. No cough symptoms, no fever, no chills. Patient consulted ER for evaluation. O2 sats 80s upon arrival at the ER. Patient currently comfortable after 1 dose of Vicodin at the ER. Medical History as above Surgical History : Shoulder surgery, cholecystectomy, hernia repair, left ankle surgery, cataract surgeries, toe surgery Family History : Renal cell carcinoma, colon cancer Personal/Social history : Past tobacco abuse, occasional EtOH intake, retired [employer] employee Allergies Allergy/AdvReac Type Severity Reaction Status Date / Time No Known Drug Allergies Allergy NKDA Verified 06/30/22 22:39 Home Medications Medication Instructions Recorded Confirmed Type ascorbic acid (vitamin C) 500 mg 500 mg PO DAILY 06/14/19 06/30/22 History tablet docusate sodium 100 mg capsule 100 mg PO BID PRN Constipation #60 06/14/19 06/30/22 History caps losartan 25 mg tablet 25 mg PO QAM 06/14/19 06/30/22 History tramadol 50 mg tablet 50 mg PO BID PRN Pain 08/18/19 06/30/22 History diclofenac sodium 1 % topical gel 2 gm topical QID PRN Pain 01/18/20 06/30/22 History omeprazole 20 mg capsule,delayed 20 mg PO DAILY 01/18/20 06/30/22 History release polyethylene glycol 3350 17 17 gm PO HS 01/18/20 06/30/22 History gram/dose oral powder (Miralax) potassium citrate 10 mEq (1,080 10 meq PO TID 01/18/20 06/30/22 History mg) tablet,extended release wheat dextrin 5 gram/7.4 gram oral 4 gm PO HS 01/18/20 06/30/22 History powder (Benefiber Healthy Shape) umeclidinium 62.5 mcg/actuation 1 inh inhalation DAILY #30 ea 01/14/22 06/30/22 Rx blister powder for inhalation (Incruse Ellipta) finasteride 5 mg tablet 5 mg PO DAILY #90 tabs 06/10/22 06/30/22 Rx amlodipine 5 mg tablet 5 mg PO DAILY 06/21/22 06/30/22 History tamsulosin 0.4 mg capsule 0.4 mg PO HS 06/21/22 06/30/22 History dexamethasone 6 mg tablet 6 mg PO DAILY #3 tabs 06/23/22 06/30/22 Rx calcium carbonate 600 mg-vitamin 1 cap PO DAILY 06/30/22 06/30/22 History D3 5 mcg (200 unit) capsule (Calcium 600 + D(3)) cyanocobalamin (vitamin B-12) 1,000 mcg PO DAILY 06/30/22 06/30/22 History 1,000 mcg tablet (Vitamin B-12) donepezil 10 mg tablet 10 mg PO DAILY 06/30/22 06/30/22 History fluoride (sodium) 1.1 % dental 1 applic PO DAILY 06/30/22 06/30/22 History paste mirtazapine 15 mg tablet 15 mg PO HS 06/30/22 06/30/22 History Past Med/Surg History Medical History BPH (benign prostatic hyperplasia) Chronic obstructive pulmonary disease CAN'T REMEMBER LAST RES. INH USE - LONG TIME GERD (gastroesophageal reflux disease) Hearing deficit Hypertension Inguinal hernia Kidney stones Memory changes Mild cognitive impairment Osteoarthritis Osteoporosis Sleep apnea CPAP Surgical History History of ankle surgery TITANIUM TO LEFT ANKLE History of cholecystectomy History of colonoscopy History of foot surgery right foot - big toe - 10/14/2002 History of herniorrhaphy History of lithotripsy History of shoulder surgery Left History of surgery on wrist LEFT Family History Mother Cancer Father , Spontaneous rupture of kidney Sudden Other No family history of allergies Social History Smoking Status: Former smoker Tobacco Type: Cigarettes Age Started Using Tobacco: 17; Age Quit Using Tobacco: 49; packs per day: 1; Number of Years Since Quit: 30; Second Hand Exposure: No; Hx Alcohol Use: Yes (social very minimally) Alcohol type: wine and hard liquor Alcohol type Comment: bottle of blackberry aranza x/month Hx Substance Use: No Preferred Language: Belgian Communication Ability: Effective Outside Sales Manager Required: No Beliefs That Will Affect Care: Yazidism Yazidism Beliefs: Faith marital status: Current Living Situation: Spouse and Family Current Living Situation Comment: two story house with , grandson/gf and great grand child current occupational status: retired Other Information That Helps Us Care for You: No Feels Safe at Home: Yes Safety Concerns: Feels Safe At This Time Assistive Devices: Oxygen - Continuous Review of Systems Review of Systems: As per HPI, all other systems reviewed and negative Physical Exam Physical Exam: GENERAL: Comfortable, pleasant, looks younger than stated age, no respiratory distress SKIN: Normal color, warm HEENT: [place] palpebral conjunctivae, no ptosis, dry buccal mucosa, nasal cannula in place NECK : Supple, no tenderness CHEST : Decreased breath sounds, left chest wall tenderness HEART : RRR, no obvious murmurs ABDOMEN: Some distention, nontender EXTREMITIES : No LE swelling/tenderness, no other conspicuous deformities noted NEUROLOGIC : Coherent, no facial asymmetry, no other gross focality Results & Data Results & Data ([facility]) Vital Signs (Past 12 Hours) Vital Signs Temp Pulse Pulse Resp BP Pulse Ox O2 Del Method 06/30/22 21:38 92 Nasal Cannula 06/30/22 21:36 85 L Room Air 06/30/22 21:00 80 18 91 06/30/22 19:00 37.4 C 94 H 20 157/78 H 88 L Room Air O2 Flow Rate 06/30/22 21:38 2 06/30/22 21:36 06/30/22 21:00 06/30/22 19:00 Laboratory Results Laboratory Results WBC 9.94 K/ul (4.8-10.8) 06/30/22 19:40 RBC 4.92 M/uL (4.63-6.08) 06/30/22 19:40 Hgb 16.4 g/dl (14.0-18.0) 06/30/22 19:40 Hct 47.7 % (40.1-51.0) 06/30/22 19:40 MCV 97.0 fL (80.0-100.0) 06/30/22 19:40 MCH 33.3 pg (25.0-34.0) 06/30/22 19:40 MCHC 34.4 g/dL (32.0-36.0) 06/30/22 19:40 RDW Std Deviation 46.9 fL (36.4-46.3) H 06/30/22 19:40 RDW Coeff of [place] 13.0 % (11.5-14.5) 06/30/22 19:40 Plt Count 122 K/uL (130-400) L 06/30/22 19:40 MPV 11.1 fL (9.4-12.4) 06/30/22 19:40 Immature Gran % (Auto) 0.3 % 06/30/22 19:40 Neut % (Auto) 72.6 % 06/30/22 19:40 Lymph % (Auto) 13.9 % 06/30/22 19:40 [place] % (Auto) 12.6 % 06/30/22 19:40 Eos % (Auto) 0.4 % 06/30/22 19:40 Baso % (Auto) 0.2 % 06/30/22 19:40 Neut # (Auto) 7.22 K/uL (1.4-6.5) H 06/30/22 19:40 Lymph # (Auto) 1.38 K/uL (1.2-3.4) 06/30/22 19:40 [place] # (Auto) 1.25 K/uL (0.24-0.82) H 06/30/22 19:40 Eos # (Auto) 0.04 K/uL (0-0.50) 06/30/22 19:40 Baso # (Auto) 0.02 K/uL (0-0.2) 06/30/22 19:40 Immature Gran # (Auto) 0.03 K/uL (0.00-0.02) H 06/30/22 19:40 Platelet Estimate Normal (Normal) 06/30/22 19:40 PT 11.0 Seconds (9.0-12.0) 06/30/22 20:49 INR 1.0 (0.9-1.1) 06/30/22 20:49 APTT 26.0 Seconds (21.0-31.0) 06/30/22 20:49 PTT Ratio 0.9 06/30/22 20:49 Sodium 135 mmol/L (136-145) L 06/30/22 19:40 Potassium 4.1 mmol/L (3.5-5.1) 06/30/22 20:49 Chloride 106 mmol/L (98-107) 06/30/22 19:40 Carbon Dioxide 20 mmol/L (21-32) L 06/30/22 19:40 Anion Gap 9 (3-11) 06/30/22 19:40 BUN 14 mg/dl (6-23) 06/30/22 19:40 Creatinine 0.91 mg/dl (0.6-1.4) 06/30/22 19:40 Est Cr Clr Drug Dosing 67.0 ml/min 06/30/22 19:40 Est GFR ( Amer) 90.0 ml/min 06/30/22 19:40 Est GFR (Non-Af Amer) 77.7 ml/min 06/30/22 19:40 BUN/Creatinine Ratio 15.4 (10-20) 06/30/22 19:40 Glucose 99 mg/dl (70-99(Fasting)) 06/30/22 19:40 Calcium 8.9 mg/dl (8.5-10.1) 06/30/22 19:40 Magnesium 2.1 mg/dl (1.7-2.4) 06/30/22 20:49 Total Bilirubin 1.2 mg/dl (0.2-1.0) H 06/30/22 19:40 AST 13 U/L (13-39) 06/30/22 20:49 ALT 23 U/L (7-52) 06/30/22 19:40 Alkaline Phosphatase 67 U/L (34-104) 06/30/22 19:40 Troponin I High Sens 19.5 pg/ml (0-20) 06/30/22 19:40 Total Protein 6.6 gm/dl (6.0-8.3) 06/30/22 19:40 Albumin 3.5 gm/dl (3.4-5.0) 06/30/22 19:40 Globulin 3.1 gm/dl (2.5-4.0) 06/30/22 19:40 Albumin/Globulin Ratio 1.1 (0.9-2) 06/30/22 19:40 SARS-CoV-2, RNA, NAAT POSITIVE (NEGATIVE) A* 06/30/22 21:41 Impressions Chest X-Ray 06/30/22 19:04 XR chest 1V portable CLINICAL HISTORY: Chest Pain TECHNIQUE: Single frontal radiograph of the chest was obtained. Comparison: Comparison is made to chest radiograph 06/21/2022 FINDINGS: No lines and tubes are seen. Cardiomegaly is noted. The lungs are clear. No evidence of pleural effusion or pneumothorax. IMPRESSION: Cardiomegaly without acute abnormality. ACT 112: Negative or not required by law. Electronically signed by: Mariano Betts M.D. 06/30/2022 8:18 PM Diagnostic Findings EKG as per my interpretation :Rate 70, NSR, normal axis, no ischemia Code Status & VTE Plan VTE Prophylaxis Plan VTE Prophylaxis will be ordered: Yes
[2022-06-30] MEDS ORDERED: SODIUM CHLORIDE 0.9% 1000ML 1,000 ML IV ONE (23:05)
[2022-07-01] MEDS ORDERED: ACETAMINOPHEN 325 MG TAB PO PRN (00:32)
[2022-07-01] MEDS ORDERED: PROMETHAZINE HCL 12.5 MG in SODIUM CHLORIDE 0.9% 50 ML IV PRN (00:32)
[2022-07-01] MEDS ORDERED: DOCUSATE SODIUM 100 MG CAP PO PRN (00:32)
[2022-07-01] MEDS: HYDROCODONE/ACETAMOPHEN 5/325MG TAB PO PRN ×4 (01:27→21:45)
[2022-07-01] MEDS: DICLOFENAC SOD 1% GEL 100 GM TUBE EXT PRN ×2 (06:40→21:45)
[2022-07-01 07:32] LABS: Basophils # (auto) 0.03 K/uL (0-0.2); Basophils % (auto) 0.4 %; Eosinophils # (auto) 0.09 K/uL (0-0.50); Eosinophils % (auto) 1.2 %; Hematocrit (blood only) 44.7 % (40.1-51.0); Hemoglobin 15.2 g/dl (14.0-18.0); Immature Granulocytes # (auto) 0.03 K/uL (0.00-0.02); Immature Granulocytes % (auto) 0.4 %; Lymphocytes # (auto) 1.48 K/uL (1.2-3.4); Lymphocytes % (auto) 18.9 %; Mean Corpuscular Hemoglobin 33.9 pg (25.0-34.0); Mean Corpuscular Volume 99.6 fL (80.0-100.0); Mean Platelet Volume 10.5 fL (9.4-12.4); Monocytes # (auto) 1.28 K/uL (0.24-0.82); Monocytes % (auto) 16.4 %; Neutrophils # (auto) 4.91 K/uL (1.4-6.5); Neutrophils % (auto) 62.7 %; Platelet Count 159 K/uL (130-400); RDW Coefficient of Variation 13.2 % (11.5-14.5); RDW Standard Deviation 48.7 fL (36.4-46.3); Red Blood Count 4.49 M/uL (4.63-6.08); White Blood Count 7.82 K/ul (4.8-10.8)
[2022-07-01] MEDS: LIDOCAINE 5% 1 PATCH TD SCH (08:10)
[2022-07-01] MEDS: ENOXAPARIN INJ 40 MG/0.4 ML SYR SQ SCH (08:11)
[2022-07-01] MEDS: CYANOCOBALAMIN (B-12) 500 MCG TABLET PO SCH (08:12)
[2022-07-01] MEDS: FINASTERIDE 5 MG TAB PO SCH (08:12)
[2022-07-01] MEDS: POTASSIUM CITRATE 10 MEQ TAB PO SCH ×3 (08:12→21:08)
[2022-07-01] MEDS: PANTOprazole 40 MG TAB PO SCH (08:12)
[2022-07-01] MEDS: LOSARTAN POTASSIUM 25 MG TAB PO SCH (08:12)
[2022-07-01] MEDS: DONEPEZIL HCL 10 MG TAB PO SCH (08:12)
[2022-07-01] MEDS: UMECLIDINIUM BROMIDE 62.5MCG/BLISTER 7 PUFFS/INHALER INH SCH (08:13)
[2022-07-01] MEDS: amLODIPine BESYLATE 5 MG TAB PO SCH (08:13)
[2022-07-01 08:37] LABS: Calcium 8.4 mg/dl (8.5-10.1); Creatinine Clr Calc Pharmacy 64.8 ml/min; Est GFR (African American) 86.6 ml/min; Est GFR (Non-African American) 74.7 ml/min
--- NOTE | 2022-07-01 10:12 | XRay Report ---
LEFT SHOULDER 3 VIEWS CLINICAL HISTORY: Left shoulder pain. FINDINGS: 3 views of the left shoulder are obtained. Comparison is made to chest x-ray dated 9. The skeletal structures are osteopenic. There is no radiographic evidence of fracture or dislocati on. Mild osteoarthritic change is seen at the glenohumeral articulation. There is degenerative change and chronic widening of the acromioclavicular joint. This has increased from 2019. Cystic degenerati ve change is noted in the greater tuberosity. The overlying soft tissues are within normal limits. Th e left lung parenchyma is clear as imaged. IMPRESSION: Osteopenia and degenerative change as above with no acute bony abnormality identified. Electronically signed by: Colt Murrell M.D. 07/01/2022 10:11 AM
--- NOTE | 2022-07-01 12:07 | Hospitalist Progress Note ---
Date of Service July 01, 2022 Assessment & Plan (1) Acute hypoxemic respiratory failure: Plan: Secondary to uncontrolled pain from left-sided rib fractures Underlying COPD Recent COVID-19 pneumonia CTA chest on 06/21 shows nondisplaced acute left anterior sixth and seventh rib fractures. Patient continues to have significant pain at the same site. X-ray of the left shoulder did not show any acute bony abnormality Chest x-ray no acute abnormality; infiltrates resolved compared to x-ray from 06/21. WBC7.82 BMP unremarkable. Plan; Obtain CT chest without contrast to follow-up on the rib fracture. --Pain control with lidocaine patch at left chest. Also started on [place] as needed every 6 hours. Wean oxygen as tolerated. --Incentive spirometry DVT prophylaxis Lovenox Full code Dispo Home after adequate pain control Admission and Anticipated Discharge Date Admission Date: June 30, 2022 Subjective Patient seen and examined at bedside. He continues to complain of significant pain on his left side of the chest and left shoulder. He denies any cough, shortness of breath or palpitation. Review of Systems Review of Systems: All systems reviewed & are unremarkable except as noted in Subjective Physical Exam Physical Exam: GENERAL: Comfortable, pleasant, looks younger than stated age, no respiratory distress SKIN: Normal color, warm HEENT: [place] palpebral conjunctivae, no ptosis, dry buccal mucosa, nasal cannula in place NECK : Supple, no tenderness CHEST : Decreased breath sounds, left chest wall tenderness. Shoulders ROM limited due to pain. HEART : RRR, no obvious murmurs ABDOMEN: Some distention, nontender EXTREMITIES : No LE swelling/tenderness, no other conspicuous deformities noted NEUROLOGIC : Coherent, no facial asymmetry, no other gross focality Results & Data Results & Data ([facility]) Vital Signs (Past 12 Hours) Vital Signs Temp Pulse Pulse Resp BP Pulse Ox O2 Del Method 07/01/22 11:43 36.7 C 54 L 20 121/73 96 Nasal Cannula 07/01/22 08:09 36.8 C 52 L 18 160/73 H 91 Nasal Cannula 07/01/22 07:32 56 L 07/01/22 04:00 36.5 C 49 L 20 148/68 H 93 Nasal Cannula 07/01/22 00:30 61 07/01/22 00:30 Nasal Cannula 07/01/22 00:30 Nasal Cannula 07/01/22 00:05 36.6 C 56 L 18 140/71 91 Nasal Cannula O2 Flow Rate 07/01/22 11:43 2 07/01/22 08:09 2 07/01/22 07:32 07/01/22 04:00 2 07/01/22 00:30 07/01/22 00:30 2 07/01/22 00:30 2 07/01/22 00:05 2 Laboratory Results Laboratory Results WBC 7.82 K/ul (4.8-10.8) 07/01/22 07:04 RBC 4.49 M/uL (4.63-6.08) L 07/01/22 07:04 Hgb 15.2 g/dl (14.0-18.0) 07/01/22 07:04 Hct 44.7 % (40.1-51.0) 07/01/22 07:04 MCV 99.6 fL (80.0-100.0) 07/01/22 07:04 MCH 33.9 pg (25.0-34.0) 07/01/22 07:04 MCHC 34.0 g/dL (32.0-36.0) 07/01/22 07:04 RDW Std Deviation 48.7 fL (36.4-46.3) H 07/01/22 07:04 RDW Coeff of [place] 13.2 % (11.5-14.5) 07/01/22 07:04 Plt Count 159 K/uL (130-400) 07/01/22 07:04 MPV 10.5 fL (9.4-12.4) 07/01/22 07:04 Immature Gran % (Auto) 0.4 % 07/01/22 07:04 Neut % (Auto) 62.7 % 07/01/22 07:04 Lymph % (Auto) 18.9 % 07/01/22 07:04 Castro % (Auto) 16.4 % 07/01/22 07:04 Eos % (Auto) 1.2 % 07/01/22 07:04 Baso % (Auto) 0.4 % 07/01/22 07:04 Neut # (Auto) 4.91 K/uL (1.4-6.5) 07/01/22 07:04 Lymph # (Auto) 1.48 K/uL (1.2-3.4) 07/01/22 07:04 Castro # (Auto) 1.28 K/uL (0.24-0.82) H 07/01/22 07:04 Eos # (Auto) 0.09 K/uL (0-0.50) 07/01/22 07:04 Baso # (Auto) 0.03 K/uL (0-0.2) 07/01/22 07:04 Immature Gran # (Auto) 0.03 K/uL (0.00-0.02) H 07/01/22 07:04 Platelet Estimate Normal (Normal) 06/30/22 19:40 PT 11.0 Seconds (9.0-12.0) 06/30/22 20:49 INR 1.0 (0.9-1.1) 06/30/22 20:49 APTT 26.0 Seconds (21.0-31.0) 06/30/22 20:49 PTT Ratio 0.9 06/30/22 20:49 Sodium 138 mmol/L (136-145) 07/01/22 07:04 Potassium 4.0 mmol/L (3.5-5.1) 07/01/22 07:04 Chloride 106 mmol/L (98-107) 07/01/22 07:04 Carbon Dioxide 28 mmol/L (21-32) 07/01/22 07:04 Anion Gap 4 (3-11) 07/01/22 07:04 BUN 15 mg/dl (6-23) 07/01/22 07:04 Creatinine 0.94 mg/dl (0.6-1.4) 07/01/22 07:04 Est Cr Clr Drug Dosing 64.8 ml/min 07/01/22 07:04 Est GFR ( Amer) 86.6 ml/min 07/01/22 07:04 Est GFR (Non-Af Amer) 74.7 ml/min 07/01/22 07:04 BUN/Creatinine Ratio 16.0 (10-20) 07/01/22 07:04 Glucose 80 mg/dl (70-99(Fasting)) 07/01/22 07:04 Calcium 8.4 mg/dl (8.5-10.1) L 07/01/22 07:04 Magnesium 2.1 mg/dl (1.7-2.4) 06/30/22 20:49 Total Bilirubin 1.2 mg/dl (0.2-1.0) H 06/30/22 19:40 AST 13 U/L (13-39) 06/30/22 20:49 ALT 23 U/L (7-52) 06/30/22 19:40 Alkaline Phosphatase 67 U/L (34-104) 06/30/22 19:40 Troponin I High Sens 19.5 pg/ml (0-20) 06/30/22 19:40 Total Protein 6.6 gm/dl (6.0-8.3) 06/30/22 19:40 Albumin 3.5 gm/dl (3.4-5.0) 06/30/22 19:40 Globulin 3.1 gm/dl (2.5-4.0) 06/30/22 19:40 Albumin/Globulin Ratio 1.1 (0.9-2) 06/30/22 19:40 SARS-CoV-2, RNA, NAAT POSITIVE (NEGATIVE) A* 06/30/22 21:41 Impressions Chest X-Ray 06/30/22 19:04 XR chest 1V portable CLINICAL HISTORY: Chest Pain TECHNIQUE: Single frontal radiograph of the chest was obtained. Comparison: Comparison is made to chest radiograph 06/21/2022 FINDINGS: No lines and tubes are seen. Cardiomegaly is noted. The lungs are clear. No evidence of pleural effusion or pneumothorax. IMPRESSION: Cardiomegaly without acute abnormality. ACT 112: Negative or not required by law. Electronically signed by: Mariano Betts M.D. 06/30/2022 8:18 PM Shoulder X-Ray 07/01/22 08:36 LEFT SHOULDER 3 VIEWS CLINICAL HISTORY: Left shoulder pain. FINDINGS: 3 views of the left shoulder are obtained. Comparison is made to chest x-ray dated 01/27/2019. The skeletal structures are osteopenic. There is no radiographic evidence of fracture or dislocation. Mild osteoarthritic change is seen at the glenohumeral articulation. There is degenerative change and chronic widening of the acromioclavicular joint. This has increased from 2019. Cystic degenerative change is noted in the greater tuberosity. The overlying soft tissues are within normal limits. The left lung parenchyma is clear as imaged. IMPRESSION: Osteopenia and degenerative change as above with no acute bony abnormality identified. Electronically signed by: Colt Murrell M.D. 07/01/2022 10:11 AM
--- NOTE | 2022-07-01 14:18 | CT Scan Report ---
CT SCAN OF THE CHEST WITHOUT IV CONTRAST CLINICAL HISTORY: Atypical chest pain. Dyspnea. COMPARISON STUDY: Chest CT dated 06/21/2022, 10/13/2017, and 02/09/2013. TECHNIQUE: CT scan of the thorax was performed from the thoracic inlet to the upper abdomen. Images are reviewed in the axial, sagittal, and coronal planes. IV contrast was not administered for this ex amination as per the referring clinician. A dose lowering technique was utilized adhering to the leticia lilly of [place]. CT DOSE: 421.45 mGycm FINDINGS: Thyroid: Imaged portions of the thyroid gland are normal in size and attenuation. Thoracic aorta: There is atherosclerotic calcification of the thoracic aorta, which is normal in tyshawn marisel and demonstrates standard 3-vessel arch anatomy. Heart: The heart is normal in size noting a small pericardial effusion. The coronary arteries are den sely calcified. Lungs and pleural spaces: Advanced emphysema is similar to previous. Foci of parenchymal scarring are seen throughout both lungs. There is no airspace consolidation typical for pneumonia. There are trac e pleural effusions and dependent atelectasis. Scattered calcified granulomas are observed. The trach ea and central airways appear clear. A 10 mm pleural-based nodule at the right lung base on image #25 2 and a 4 mm left lower lobe pulmonary nodule image #217 are unchanged from prior examinations. There is no pneumothorax. Mediastinum: There is no mediastinal lymphadenopathy. Brandy: Not well assessed without IV contrast. Axillae: There is no axillary lymphadenopathy. Upper abdomen: There is a small hiatal hernia. Partially visualized upper abdominal viscera is within normal limits. Skeletal structures: The skeletal structures are osteopenic. Otherwise grossly unremarkable. There is a mild chronic superior endplate compression deformity of T11. Spondylotic changes noted throughout the thoracic spine. Arthritic change is seen in the shoulders. No lytic or blastic bony lesions are s een. Left anterior 6th and 7th rib fractures are unchanged. IMPRESSION: 1. Left anterior 6th and 7th rib fractures are unchanged from 10 days previous. 2. Advanced emphysema. 3. Trace pleural effusions. 4. Additional findings above. ACT 112: Negative or not required by law. Electronically signed by: Colt Murrell M.D. 07/01/2022 2:16 PM
[2022-07-01] MEDS ORDERED: TAMSULOSIN HCL 0.4 MG CAP PO SCH (21:00)
[2022-07-01] MEDS ORDERED: POLYETHYLENE (MIRALAX) 17 GM PACK PO SCH (21:00)
[2022-07-01] MEDS ORDERED: MIRTAZAPINE TAB 15 MG TAB PO SCH (21:00)
--- NOTE | 2022-07-01 22:51 | Electrocardiogram Report ---
Test Reason : Blood Pressure : / mmHG Vent. Rate : 072 BPM Atrial Rate : 072 BPM P-R Int : 158 ms QRS Dur : 066 ms QT Int : 366 ms P-R-T Axes : -05 014 044 degrees QTc Int : 400 ms Poor data quality, interpretation may be adversely affected Sinus rhythm with Premature supraventricular complexes Low voltage QRS Nonspecific ST and T wave abnormality Abnormal ECG When compared with ECG of 21-JUN-2022 12:29, No significant change was found Confirmed by Jimenez Thapa ([id number]) on 07/01/2022 10:50:48 PM Referred By: REFERRED SELF Confirmed By:Jimenez Thapa
[2022-07-02] MEDS ORDERED: KETOROLAC TROMETHAMINE 15 MG/ML VIAL IV ONE (01:38)
[2022-07-02] MEDS ORDERED: oxyCODONE HCL IR 5 MG TAB (IMMEDIATE RELEASE) PO PRN (01:39)
[2022-07-02 07:13] LABS: Basophils # (auto) 0.02 K/uL (0-0.2); Basophils % (auto) 0.3 %; Eosinophils % (auto) 1.5 %; Hematocrit (blood only) 43.1 % (40.1-51.0); Hemoglobin 14.8 g/dl (14.0-18.0); Immature Granulocytes # (auto) 0.03 K/uL (0.00-0.02); Immature Granulocytes % (auto) 0.4 %; Lymphocytes # (auto) 1.21 K/uL (1.2-3.4); Lymphocytes % (auto) 17.9 %; Mean Corpuscular Hemoglobin 33.8 pg (25.0-34.0); Mean Corpuscular Hgb Conc 34.3 g/dL (32.0-36.0); Mean Corpuscular Volume 98.4 fL (80.0-100.0); Mean Platelet Volume 10.8 fL (9.4-12.4); Monocytes # (auto) 0.86 K/uL (0.24-0.82); Monocytes % (auto) 12.7 %; Neutrophils # (auto) 4.53 K/uL (1.4-6.5); Neutrophils % (auto) 67.2 %; Platelet Count 135 K/uL (130-400); RDW Coefficient of Variation 12.8 % (11.5-14.5); RDW Standard Deviation 46.2 fL (36.4-46.3); Red Blood Count 4.38 M/uL (4.63-6.08); White Blood Count 6.75 K/ul (4.8-10.8)
[2022-07-02] MEDS: LIDOCAINE 5% 1 PATCH TD SCH (07:43)
[2022-07-02] MEDS: ENOXAPARIN INJ 40 MG/0.4 ML SYR SQ SCH (07:45)
[2022-07-02] MEDS: amLODIPine BESYLATE 5 MG TAB PO SCH (07:45)
[2022-07-02] MEDS: DONEPEZIL HCL 10 MG TAB PO SCH (07:45)
[2022-07-02] MEDS: FINASTERIDE 5 MG TAB PO SCH (07:45)
[2022-07-02] MEDS: CYANOCOBALAMIN (B-12) 500 MCG TABLET PO SCH (07:45)
[2022-07-02] MEDS: PANTOprazole 40 MG TAB PO SCH (07:46)
[2022-07-02] MEDS: POTASSIUM CITRATE 10 MEQ TAB PO SCH ×2 (07:47→12:03)
[2022-07-02] MEDS: LOSARTAN POTASSIUM 25 MG TAB PO SCH (07:49)
[2022-07-02] MEDS: UMECLIDINIUM BROMIDE 62.5MCG/BLISTER 7 PUFFS/INHALER INH SCH (07:50)
[2022-07-02 08:14] LABS: BUN Creatinine Ratio 20.8 (10-20); Calcium 8.4 mg/dl (8.5-10.1); Creatinine Clr Calc Pharmacy 80.1 ml/min; Est GFR (African American) 97.3 ml/min; Est GFR (Non-African American) 83.9 ml/min
--- NOTE | 2022-07-02 13:47 | Discharge Summary ---
Date of Service July 02, 2022 Admission HPI Per Admitting Provider History obtained from patient and records. Medical history significant for COPD, hypertension, BPH, GERD, cognitive impairment, past tobacco abuse. Recent confinement last week for COVID-19 pneumonia. Nondisplaced acute left anterior sixth and seventh rib fractures on CT chest. Patient discharged on Decadron course. Patient initially comfortable following discharge from the hospital. After a few days, patient noted intractable pain from left-sided rib fractures. Shortness of breath from inability to take a deep breath. No cough symptoms, no fever, no chills. Patient consulted ER for evaluation. O2 sats 80s upon arrival at the ER. Patient currently comfortable after 1 dose of Vicodin at the ER. Medical History as above Surgical History : Shoulder surgery, cholecystectomy, hernia repair, left ankle surgery, cataract surgeries, toe surgery Family History : Renal cell carcinoma, colon cancer Personal/Social history : Past tobacco abuse, occasional EtOH intake, retired [employer] employee Admission Exam Per Admitting Provider GENERAL: Comfortable, pleasant, looks younger than stated age, no respiratory distress SKIN: Normal color, warm HEENT: [place] palpebral conjunctivae, no ptosis, dry buccal mucosa, nasal cannula in place NECK : Supple, no tenderness CHEST : Decreased breath sounds, left chest wall tenderness HEART : RRR, no obvious murmurs ABDOMEN: Some distention, nontender EXTREMITIES : No LE swelling/tenderness, no other conspicuous deformities noted NEUROLOGIC : Coherent, no facial asymmetry, no other gross focality Principal Diagnosis Acute hypoxic respiratory failure secondary to uncontrolled pain from left-sided rib fracture and underlying COPD Recent COVID-19 pneumonia Discharge Exam GENERAL: Comfortable, pleasant, looks younger than stated age, no respiratory distress SKIN: Normal color, warm HEENT: [place] palpebral conjunctivae, no ptosis, dry buccal mucosa, nasal cannula in place NECK : Supple, no tenderness CHEST : Decreased breath sounds, left chest wall tenderness. Shoulders ROM limited due to pain. HEART : RRR, no obvious murmurs ABDOMEN: Some distention, nontender EXTREMITIES : No LE swelling/tenderness, no other conspicuous deformities noted NEUROLOGIC : Coherent, no facial asymmetry, no other gross focality Discharge Data Allergies Allergy/AdvReac Type Severity Reaction Status Date / Time No Known Drug Allergies Allergy NKDA Verified 06/30/22 22:39 Consultations 06/30/22 21:40 ED Decision to Admit Stat Ordered Studies 07/01/22 10:11 CT chest diagnostic wo con Routine Hospital Course (1) Acute hypoxemic respiratory failure: Patient is a 82-year-old male with past medical history of COPD, hypertension, GERD, cognitive impairment who presented to the hospital with intractable pain in his left chest. Patient was recently admitted a week prior with COVID-19 pneumonia and nondisplaced acute left anterior and seventh rib fracture. On presentation to the ED, patient was hypoxic and put on 3 L of oxygen by nasal cannula. He was then admitted to the telemetry floor. Repeat CT chest without contrast was done to follow-up on the fracture; it was found to be unchanged from the prior scan. Patient was managed with lidocaine patch along with Tylenol and oxycodone. Patient's pain improved over the course of the hospitalization. He was discharged with prescription for lidocaine patch, Tylenol and oxycodone. Two-step oxygen evaluation was done at discharge; patient required 3 L of oxygen at rest and at ambulation. Patient was instructed to follow-up with his primary care doctor. Discharge instruction were given to his over the phone as well. Total Time Total Time Spent Total Time Spent (In Minutes): 35 Total Time Includes: Examination of the Patient, Discharge Planning, Medication Reconciliation, Communication With Other Providers and Other Discharge Plan Discharge Items Patient Disposition: Home - Self-Care Reason For Visit: RESP FAILURE, COVID Discharge Diagnosis: Intractable pain due to Rib fracture Activity: Resume your previous activity Non-emergency contact: Primary Care Provider Call non-emergency contact if: you have any medication questions and your symptoms worsen Follow-up/Referrals: Teofilo Krishnamurthy DO [Primary Care Provider] - (Date & Time 07/04/2022 3:40 PM Provider Teofilo Krishnamurthy DO Department Family [facility] [address], [place] ) Diet: Regular Addtl Attending Provider Instructions: You were admitted to the hospital due to rib fracture. CT chest showed left anterior sixth and seventh rib fracture which is unchanged from the CT scan 10 days prior. Please take Tylenol 650 mg every 4-6 hours as needed for mild pain. Please take oxycodone 5 mg tablet every 6 hours as needed for moderate to severe pain. Please apply lidocaine patch daily for next 5 days on the area of the chest pain. Please follow-up with your primary care doctor in 1 week. Please call your primary care doctor if you continue to experience pain at the fracture site. Pending Studies at Discharge: No Stand-Alone Forms: My [facility], Smoking Cessation Medications and DC Order Prescriptions: New acetaminophen 325 mg Tablet 650 mg PO Q4H PRN (Reason: pain) Qty: 30 0RF oxycodone 5 mg Tablet 5 mg PO Q6H PRN (Reason: pain) Qty: 14 0RF lidocaine 4 % adhesive patch,medicated 1 patch topical DAILY Qty: 10 0RF Rx Instructions: may leave on for up to 12 hrs Continued Incruse Ellipta 62.5 mcg/actuation blister with device 1 inh inhalation DAILY Qty: 30 2RF finasteride 5 mg tablet 5 mg PO DAILY Qty: 90 3RF docusate sodium 100 mg capsule 100 mg PO BID PRN (Reason: Constipation) Qty: 60 losartan 25 mg tablet 25 mg PO QAM ascorbic acid (vitamin C) 500 mg tablet 500 mg PO DAILY potassium citrate 10 mEq (1,080 mg) tablet extended release 10 meq PO TID Benefiber Healthy Shape 5 gram/7.4 gram powder 4 gm PO HS diclofenac sodium 1 % gel 2 gm TOP QID PRN (Reason: Pain) polyethylene glycol 3350 [Miralax] 17 gram/dose powder 17 gm PO HS omeprazole 20 mg capsule,delayed release(DR/EC) 20 mg PO DAILY tramadol 50 mg tablet 50 mg PO BID PRN (Reason: Pain) amlodipine 5 mg tablet 5 mg PO DAILY tamsulosin 0.4 mg capsule 0.4 mg PO HS donepezil 10 mg tablet 10 mg PO DAILY cyanocobalamin (vitamin B-12) [Vitamin B-12] 1,000 mcg Tablet 1,000 mcg PO DAILY mirtazapine 15 mg tablet 15 mg PO HS Calcium 600 + D(3) 600 mg-5 mcg (200 unit) Capsule 1 cap PO DAILY fluoride (sodium) 1.1 % paste 1 applic PO DAILY Discontinued dexamethasone 6 mg tablet 6 mg PO DAILY Qty: 3 0RF Rx Instructions: [id number], ORDERED 06/23/22 Discharge Orders: Discharge Order (Routine); Ordered 07/02/22 Ordered By: Cornelius Mast Admission Data Admit Date/Time: 06/30/22 23:01 Attending Provider: Cornelius Mast Admit Provider: Franklin Walton Primary Care Provider: Teofilo Krishnamurthy Other Providers: Franklin Walton Other Interventions: Discharge Summary Assessment (RN) Last Done: 07/02/22 10:28
--- NOTE | 2022-07-11 12:53 | Coding Query ---
CODING QUERY To promote full compliance with coding requirements relating to patient care, provider participation is requested in all cases of combat systems operator uncertainty. Please assist us with the question(s) below: Coding Question(s): The ER documents, "Did test positive for COVID-19", and, "The patient did test positive for COVID-19. Given that the patient is today hypoxic, it is thought is most likely due to the pain from his rib fracture however given he is still COVID-positive we will give the patient Decadron 6 mg, then the H&P documents, "Recent COVID-19 pneumonia Symptoms resolved after Decadron Rx", and, "Recent confinement last week for COVID-19 pneumonia", and the 07/01 Progress Note and Discharge Summary document Recent COVID-19 pneumonia. Please specify below, regarding COVID-19 during this admission. ( ) Active continuing COVID-19 infection during this admission ( ) New COVID-19 infection during this admission ( ) Post Covid-19 condition ( X ) History only of COVID-19, with no active infection or post Covid-19 condition ( ) Other: Please Specify Physician's Response(s): Thank you Abril Hernandez Principal Diagnosis: "that condition established after study, to be chiefly responsible for occasioning the admission of the patient to the hospital for care." Co-Existing Principal Diagnosis: "when two or more diagnoses equally meet the criteria for principal diagnosis as determined by the circumstances of admission, diagnostic work up, and/or therapy provided, and the Alphabetic Index, Tabular List, or another coding guideline does not provide sequencing direction, any one of the diagnoses may be sequenced first." "When the physician has documented what appears to be a current diagnosis in the body of the record, but has not included the diagnosis in the final diagnostic statement, the physician should be asked whether the diagnosis should be added." (Source Coding [facility] 2 QTR90. p3-4) ANG[employer]
--- NOTE | 2022-07-11 12:56 | Coding Query ---
To promote full compliance with coding requirements relating to patient care, physician participation is requested in all cases of collection systems consultant uncertainty. Please assist us with the question(s) below: Coding Question(s): It was noted throughout the record that the patient has/is suspected to have osteoporosis. According to coding guidelines "a code for osteoporotic fracture, and not a traumatic fracture, should be used for any patient with known osteoporosis who suffers a fracture, even if the patient had a minor fall or trauma, if that fall or trauma would not usually break a normal, healthy bone." Please indicate below the type of fracture: Physician's Response(s): ( ) Osteoporotic fracture of Left Ribs ( X ) Traumatic fracture of Left Ribs ( ) Other, please specify ( ) Unable to be determined MTDD
== END 2022-07-02 17:28 | disposition home or self-care (01) | DRG 183 ==
LOC: ED 18:26 → 2N 23:01

== ENCOUNTER 2022-09-16 15:57 | Inpatient (IN) ==
--- NOTE | 2022-09-16 16:52 | XRay Report ---
XR chest 1V portable HISTORY: 82 years-old Male SOB acute shortness of breath COMPARISON: Chest CT 07/01/2022 TECHNIQUE: AP view of the chest FINDINGS: Cardiomediastinal and hilar silhouettes are unchanged. Severe emphysema with chronic interstitial coa rsening. Ill-defined bibasilar and right midlung airspace opacities. Mild pulmonary vascular congesti on with probable trace pleural effusions. No pneumothorax. Degenerative changes of the shoulders and spine. IMPRESSION: 1. Cardiomegaly with pulmonary vascular congestion. 2. Severe emphysema with chronic interstitial coarsening. 3. Mild bibasilar and right midlung ill-defined airspace opacities may represent a mild infectious or inflammatory pneumonitis. 4. Trace pleural effusions. ACT 112: Negative or not required by law. The above report was generated using voice recognition software. It may contain grammatical, syntax o r spelling errors. Electronically signed by: Josue Al M.D. 09/16/2022 4:50 PM
[2022-09-16 17:28] LABS: Basophils # (auto) 0.03 K/uL (0-0.2); Basophils % (auto) 0.3 %; Eosinophils # (auto) 0.03 K/uL (0-0.50); Eosinophils % (auto) 0.3 %; Hematocrit (blood only) 43.1 % (40.1-51.0); Hemoglobin 14.4 g/dl (14.0-18.0); Immature Granulocytes # (auto) 0.04 K/uL (0.00-0.02); Immature Granulocytes % (auto) 0.5 %; Lymphocytes # (auto) 0.92 K/uL (1.2-3.4); Lymphocytes % (auto) 10.5 %; Mean Corpuscular Hemoglobin 33.6 pg (25.0-34.0); Mean Corpuscular Hgb Conc 33.4 g/dL (32.0-36.0); Mean Corpuscular Volume 100.7 fL (80.0-100.0); Mean Platelet Volume 11.2 fL (9.4-12.4); Monocytes # (auto) 0.83 K/uL (0.24-0.82); Monocytes % (auto) 9.4 %; Neutrophils # (auto) 6.95 K/uL (1.4-6.5); Platelet Count 175 K/uL (130-400); RDW Coefficient of Variation 14.1 % (11.5-14.5); Red Blood Count 4.28 M/uL (4.63-6.08)
[2022-09-16 17:39] LABS: INR 1.1 (0.9-1.1); Partial Thromboplastin Ratio 0.9; Partial Thromboplastin Time 23.5 Seconds (21.0-31.0); Prothrombin Time 11.3 Seconds (9.0-12.0)
[2022-09-16 17:46] LABS: Albumin Globulin Ratio 1.1 (0.9-2); Albumin Level 3.6 gm/dl (3.4-5.0); BUN Creatinine Ratio 18.6 (10-20); Bilirubin,Total 1.8 mg/dl (0.2-1.0); Calcium 8.8 mg/dl (8.5-10.1); Creatinine Clr Calc Pharmacy 52.6 ml/min; Est GFR (African American) 65.7 ml/min; Est GFR (Non-African American) 56.7 ml/min; Globulin 3.4 gm/dl (2.5-4.0); Magnesium 2.3 mg/dl (1.7-2.4); Potassium 4.2 mmol/L (3.5-5.1)
[2022-09-16] MEDS ORDERED: CEFEPIME 2,000 MG/20 ML VIAL IV STA (18:32)
--- NOTE | 2022-09-16 18:49 | Emergency Department Note ---
History of Present Illness General Chief complaint: Weakness Stated complaint: PNEUMONIA Time Seen by Provider: 09/16/22 18:30 History of Present Illness 82-year-old male presents to the ED from the patient's PCP office. He states that he was sent here for further evaluation and care bilateral pneumonia and generalized weakness. Patient has been feeling progressively weak over the past week. He has been falling and not being able to get up for the past 2 to 3 days. He has a cough that is productive for yellow-green sputum that seems to be worse in the morning. He has exertional weakness. Home Medications Medication Instructions Recorded Confirmed Type ascorbic acid (vitamin C) 500 mg 500 mg PO DAILY 06/14/19 07/25/22 History tablet docusate sodium 100 mg capsule 100 mg PO BID PRN Constipation #60 06/14/19 07/25/22 History caps losartan 25 mg tablet 25 mg PO QAM 06/14/19 07/25/22 History diclofenac sodium 1 % topical gel 2 gm topical QID PRN Pain 01/18/20 07/25/22 History omeprazole 20 mg capsule,delayed 20 mg PO DAILY 01/18/20 07/25/22 History release polyethylene glycol 3350 17 17 gm PO HS 01/18/20 07/25/22 History gram/dose oral powder (Miralax) potassium citrate 10 mEq (1,080 10 meq PO TID 01/18/20 07/25/22 History mg) tablet,extended release wheat dextrin 5 gram/7.4 gram oral 4 gm PO HS 01/18/20 07/25/22 History powder (Benefiber Healthy Shape) umeclidinium 62.5 mcg/actuation 1 inh inhalation DAILY #30 ea 01/14/22 07/25/22 Rx blister powder for inhalation (Incruse Ellipta) finasteride 5 mg tablet 5 mg PO DAILY #90 tabs 06/10/22 07/25/22 Rx amlodipine 5 mg tablet 5 mg PO DAILY 06/21/22 07/25/22 History tamsulosin 0.4 mg capsule 0.4 mg PO HS 06/21/22 07/25/22 History calcium carbonate 600 mg-vitamin 1 cap PO DAILY 06/30/22 07/25/22 History D3 5 mcg (200 unit) capsule (Calcium 600 + D(3)) cyanocobalamin (vitamin B-12) 1,000 mcg PO DAILY 06/30/22 07/25/22 History 1,000 mcg tablet (Vitamin B-12) donepezil 10 mg tablet 10 mg PO DAILY 06/30/22 07/25/22 History fluoride (sodium) 1.1 % dental 1 applic PO DAILY 06/30/22 07/25/22 History paste mirtazapine 15 mg tablet 15 mg PO HS 06/30/22 07/25/22 History lidocaine 4 % topical patch 1 patch topical DAILY rib pain #10 07/02/22 07/25/22 Rx ea oxycodone 5 mg tablet 5 mg PO Q6H PRN pain #14 tabs 07/02/22 07/25/22 Rx Portable Oxygen #1 ea 07/15/22 07/25/22 Rx gabapentin 100 mg capsule 100 mg PO TID 07/25/22 07/25/22 History solifenacin 5 mg tablet (Vesicare) 5 mg PO DAILY #30 tabs 09/08/22 Rx Allergies Allergy/AdvReac Type Severity Reaction Status Date / Time No Known Drug Allergies Allergy NKDA Verified 07/15/22 10:58 Past Med/Surg History Medical History BPH (benign prostatic hyperplasia) BPH with obstruction/lower urinary tract symptoms Chest pain Chronic obstructive pulmonary disease CAN'T REMEMBER LAST RES. INH USE - LONG TIME COPD (chronic obstructive pulmonary disease) COVID GERD (gastroesophageal reflux disease) Hearing deficit Hypertension Hypoxemia Inguinal hernia Kidney stones Memory changes Mild cognitive impairment Multiple pulmonary nodules determined by computed tomography of lung Osteoarthritis Osteoporosis Sleep apnea CPAP Surgical History History of ankle surgery TITANIUM TO LEFT ANKLE History of cholecystectomy History of colonoscopy History of foot surgery right foot - big toe - 10/14/2002 History of herniorrhaphy History of lithotripsy History of shoulder surgery Left History of surgery on wrist LEFT Family History Mother Cancer Father , Spontaneous rupture of kidney Sudden Other No family history of allergies Social History Smoking Status: Former smoker Tobacco Type: Cigarettes Age Started Using Tobacco: 17; Age Quit Using Tobacco: 49; packs per day: 1; Second Hand Exposure: No; Hx Alcohol Use: Yes (social very minimally) Alcohol type: wine and hard liquor Alcohol type Comment: bottle of blackberry aranza x/month Hx Substance Use: No Preferred Language: Zambian Communication Ability: Effective 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 Beliefs That Will Affect Care: Yarsanism Yarsanism Beliefs: Jew marital status: Current Living Situation: Spouse and Family Current Living Situation Comment: two story house with , grandson/gf and great grand child current occupational status: retired Feels Safe at Home: Yes Assistive Devices: CPAP and Walker Review of Systems A total of 10 systems reviewed and were otherwise negative Physical Exam Vital Signs Vital Signs - 24 hr 09/16/22 16:10 09/16/22 18:36 09/16/22 18:36 Temperature 36.6 C Temperature Source Temporal Artery Scan Pulse Rate 80 Pulse Rate [Finger] 84 Pulse Rhythm [Finger] Regular Pulse Strength [Finger] Normal Respiratory Rate 20 20 Respiratory Effort / Characteristics Non-Labored Respiratory Depth Normal Respiratory Pattern Regular Blood Pressure 124/66 Blood Pressure [Left Arm] 119/70 Blood Pressure Mean 85 Blood Pressure Mean [Left Arm] 86 Blood Pressure Position [Left Arm] Lying Pulse Oximetry 91 92 92 Oxygen Delivery Method Nasal Cannula Room Air Room Air Oxygen Flow Rate 3 Sepsis Recent Fever Within 48 Hours No Sepsis New/Unexplained Change in Mental Status N/A Sepsis Action Taken by Nursing No Action Required 09/16/22 18:36 09/16/22 18:36 Temperature Temperature Source Pulse Rate Pulse Rate [Finger] Pulse Rhythm [Finger] Pulse Strength [Finger] Respiratory Rate Respiratory Effort / Characteristics Non-Labored Respiratory Depth Respiratory Pattern Blood Pressure Blood Pressure [Left Arm] Blood Pressure Mean Blood Pressure Mean [Left Arm] Blood Pressure Position [Left Arm] Pulse Oximetry 92 Oxygen Delivery Method Room Air Oxygen Flow Rate Sepsis Recent Fever Within 48 Hours Sepsis New/Unexplained Change in Mental Status Sepsis Action Taken by Nursing CONSTITUTIONAL/VITAL SIGNS: Reviewed / noted above. GENERAL: Non-toxic in appearance. INTEGUMENTARY: Warm, dry, and [place]. HEAD: Normocephalic. EYES: without scleral icterus or trauma. ENT/OROPHARYNX: clear and moist. LYMPHADENOPATHY/NECK: Is supple without lymphadenopathy or meningismus. RESPIRATORY: Clear to auscultation bilaterally. No increased work of breathing. CARDIOVASCULAR: Regular rate and rhythm. GI/ABDOMEN: Soft and nontender. No organomegaly or pulsatile mass. EXTREMITIES: Warm and well perfused. BACK: No CVA tenderness. NEUROLOGICAL: Intact without focal deficits. PSYCHIATRIC: normal affect. MUSCULOSKELETAL: Normally developed with good muscle tone. TRIAGE NURSING DOCUMENTATION REVIEWED. Course Administered Medications Discontinued Medications Cefepime HCl (Maxipime) 2,000 mg in 20 mls @ 5 mls/min IV NOW STA; Protocol Stop: 09/16/22 18:35 Last Admin: 09/16/22 19:33 Dose: 5 mls/min Documented By: TALISHA Medical Decision Making Differential Diagnosis Differential includes acute coronary syndrome, myocardial infarction, CVA, TIA, anemia, infection, pneumonia, UTI, pyelonephritis, poor nutrition, dehydration, electrolyte disturbance,hypoglycemia. Medical Records Attestation: I reviewed the patient's medical records. Home Medications Current Medication List: was personally reviewed by me Laboratory Data Attestation: I reviewed the patient's lab results. Result diagrams: 09/16/22 17:09 09/16/22 17:09 Lab Results 09/16/22 09/16/22 09/16/22 Range/Units 17:09 17:09 17:09 WBC 8.80 (4.8-10.8) K/ul RBC 4.28 L (4.63-6.08) M/uL Hgb 14.4 (14.0-18.0) g/dl Hct 43.1 (40.1-51.0) % MCV 100.7 H (80.0-100.0) fL MCH 33.6 (25.0-34.0) pg MCHC 33.4 (32.0-36.0) g/dL RDW Std Deviation 53.0 H (36.4-46.3) fL RDW Coeff of [place] 14.1 (11.5-14.5) % Plt Count 175 (130-400) K/uL MPV 11.2 (9.4-12.4) fL Immature Gran % (Auto) 0.5 % Neut % (Auto) 79.0 % Lymph % (Auto) 10.5 % Mercer % (Auto) 9.4 % Eos % (Auto) 0.3 % Baso % (Auto) 0.3 % Neut # (Auto) 6.95 H (1.4-6.5) K/uL Lymph # (Auto) 0.92 L (1.2-3.4) K/uL Mercer # (Auto) 0.83 H (0.24-0.82) K/uL Eos # (Auto) 0.03 (0-0.50) K/uL Baso # (Auto) 0.03 (0-0.2) K/uL Immature Gran # (Auto) 0.04 H (0.00-0.02) K/uL PT 11.3 (9.0-12.0) Seconds INR 1.1 (0.9-1.1) APTT 23.5 (21.0-31.0) Seconds PTT Ratio 0.9 Sodium 140 (136-145) mmol/L Potassium 4.2 (3.5-5.1) mmol/L Chloride 105 (98-107) mmol/L Carbon Dioxide 27 (21-32) mmol/L Anion Gap 8 (3-11) BUN 22 (6-23) mg/dl Creatinine 1.18 (0.6-1.4) mg/dl Est Cr Clr Drug Dosing 52.6 ml/min Est GFR ( Amer) 65.7 ml/min Est GFR (Non-Af Amer) 56.7 ml/min BUN/Creatinine Ratio 18.6 (10-20) Glucose 98 (70-99(Fasting)) mg/dl Lactate (0.4-2.0) mmol/L Calcium 8.8 (8.5-10.1) mg/dl Magnesium 2.3 (1.7-2.4) mg/dl Total Bilirubin 1.8 H (0.2-1.0) mg/dl AST 27 (13-39) U/L ALT 15 (7-52) U/L Alkaline Phosphatase 80 (34-104) U/L Total Protein 7.0 (6.0-8.3) gm/dl Albumin 3.6 (3.4-5.0) gm/dl Globulin 3.4 (2.5-4.0) gm/dl Albumin/Globulin Ratio 1.1 (0.9-2) Procalcitonin (0-0.5) ng/ml 09/16/22 09/16/22 Range/Units 17:09 19:22 WBC (4.8-10.8) K/ul RBC (4.63-6.08) M/uL Hgb (14.0-18.0) g/dl Hct (40.1-51.0) % MCV (80.0-100.0) fL MCH (25.0-34.0) pg MCHC (32.0-36.0) g/dL RDW Std Deviation (36.4-46.3) fL RDW Coeff of [place] (11.5-14.5) % Plt Count (130-400) K/uL MPV (9.4-12.4) fL Immature Gran % (Auto) % Neut % (Auto) % Lymph % (Auto) % Mercer % (Auto) % Eos % (Auto) % Baso % (Auto) % Neut # (Auto) (1.4-6.5) K/uL Lymph # (Auto) (1.2-3.4) K/uL Mercer # (Auto) (0.24-0.82) K/uL Eos # (Auto) (0-0.50) K/uL Baso # (Auto) (0-0.2) K/uL Immature Gran # (Auto) (0.00-0.02) K/uL PT (9.0-12.0) Seconds INR (0.9-1.1) APTT (21.0-31.0) Seconds PTT Ratio Sodium (136-145) mmol/L Potassium (3.5-5.1) mmol/L Chloride (98-107) mmol/L Carbon Dioxide (21-32) mmol/L Anion Gap (3-11) BUN (6-23) mg/dl Creatinine (0.6-1.4) mg/dl Est Cr Clr Drug Dosing ml/min Est GFR ( Amer) ml/min Est GFR (Non-Af Amer) ml/min BUN/Creatinine Ratio (10-20) Glucose (70-99(Fasting)) mg/dl Lactate 0.9 (0.4-2.0) mmol/L Calcium (8.5-10.1) mg/dl Magnesium (1.7-2.4) mg/dl Total Bilirubin (0.2-1.0) mg/dl AST (13-39) U/L ALT (7-52) U/L Alkaline Phosphatase (34-104) U/L Total Protein (6.0-8.3) gm/dl Albumin (3.4-5.0) gm/dl Globulin (2.5-4.0) gm/dl Albumin/Globulin Ratio (0.9-2) Procalcitonin 1.08 H (0-0.5) ng/ml Imaging Data Radiologist's Impression: Chest X-Ray 09/16/22 16:14 XR chest 1V portable HISTORY: 82 years-old Male SOB acute shortness of breath COMPARISON: Chest CT 07/01/2022 TECHNIQUE: AP view of the chest FINDINGS: Cardiomediastinal and hilar silhouettes are unchanged. Severe emphysema with chronic interstitial coarsening. Ill-defined bibasilar and right midlung airspace opacities. Mild pulmonary vascular congestion with probable trace pleural effusions. No pneumothorax. Degenerative changes of the shoulders and spine. IMPRESSION: 1. Cardiomegaly with pulmonary vascular congestion. 2. Severe emphysema with chronic interstitial coarsening. 3. Mild bibasilar and right midlung ill-defined airspace opacities may represent a mild infectious or inflammatory pneumonitis. 4. Trace pleural effusions. ACT 112: Negative or not required by law. The above report was generated using voice recognition software. It may contain grammatical, syntax or spelling errors. Electronically signed by: Josue Al M.D. 09/16/2022 4:50 PM ECG Data Attestation: I personally reviewed and interpreted this ECG as follows: Additional Comments: Twelve-lead EKG: Per my interpretation shows a normal sinus rhythm at a rate of 72. No ST elevation. No PVCs. Normal QTC. MDM Narrative 82-year-old male presents with generalized weakness as well as a productive cough. Has had symptoms for about a week. He is so weak that when he falls he is not able to get up. This is happened numerous times over the past several days. His chest x-ray today shows mild by basilar pneumonia. CBC and chemistry panel was unremarkable. An EKG shows normal sinus rhythm. The patient was ordered additional work-up including procalcitonin, lactic acid and blood cultures. IV cefepime has been ordered. Vital signs here are stable. He is 92% on 3 L of oxygen which is what he typically uses at home. Occasionally he drops into the 88% range while at rest, during my interview. The patient will be seen by the hospitalist for further evaluation and care. Impression & Plan Generalized weakness, Bilateral interstitial pneumonia, Falls Discharge Plan Visit Data Chief Complaint: Weakness Stated Complaint: PNEUMONIA ED Provider: Masood Mcallister Discharge Problem: Generalized weakness, Bilateral interstitial pneumonia, Falls Patient Disposition: Being Evaluated by Hospitalist Forms Stand Alone Forms: My [facility] Prescriptions Prescriptions: No Action Incruse Ellipta 62.5 mcg/actuation blister with device 1 inh inhalation DAILY Qty: 30 2RF finasteride 5 mg tablet 5 mg PO DAILY Qty: 90 3RF solifenacin [Vesicare] 5 mg tablet 5 mg PO DAILY Qty: 30 2RF (DME) Portable Oxygen Misc See Rx Instructions .Route Qty: 1 0RF Rx Instructions: Home oxygen concentrator with portability at 3 L/min via nasal cannula. Length of need is 99 years. docusate sodium 100 mg capsule 100 mg PO BID PRN (Reason: Constipation) Qty: 60 losartan 25 mg tablet 25 mg PO QAM ascorbic acid (vitamin C) 500 mg tablet 500 mg PO DAILY potassium citrate 10 mEq (1,080 mg) tablet extended release 10 meq PO TID Benefiber Healthy Shape 5 gram/7.4 gram powder 4 gm PO HS diclofenac sodium 1 % gel 2 gm TOP QID PRN (Reason: Pain) polyethylene glycol 3350 [Miralax] 17 gram/dose powder 17 gm PO HS omeprazole 20 mg capsule,delayed release(DR/EC) 20 mg PO DAILY gabapentin 100 mg capsule 100 mg PO TID amlodipine 5 mg tablet 5 mg PO DAILY tamsulosin 0.4 mg capsule 0.4 mg PO HS donepezil 10 mg tablet 10 mg PO DAILY cyanocobalamin (vitamin B-12) [Vitamin B-12] 1,000 mcg Tablet 1,000 mcg PO DAILY mirtazapine 15 mg tablet 15 mg PO HS Calcium 600 + D(3) 600 mg-5 mcg (200 unit) Capsule 1 cap PO DAILY fluoride (sodium) 1.1 % paste 1 applic PO DAILY oxycodone 5 mg Tablet 5 mg PO Q6H PRN (Reason: pain) Qty: 14 0RF lidocaine 4 % adhesive patch,medicated 1 patch topical DAILY Qty: 10 0RF Rx Instructions: may leave on for up to 12 hrs Referrals Referrals: Teofilo Krishnamurthy, DO [Primary Care Provider] -
[2022-09-16 20:30] LABS: Influenza A virus by PCR Negative (Neg); Influenza B virus by PCR Negative (Neg); RSV by PCR Negative (Neg); SARS CoV2 RNA(COVID-19) Ceph NEGATIVE (Negative)
[2022-09-16] MEDS ORDERED: ACETAMINOPHEN 325 MG TAB PO PRN (21:35)
[2022-09-16] MEDS ORDERED: SODIUM CHLORIDE 0.9% 1000ML 1,000 ML IV SCH (21:35)
[2022-09-16] MEDS ORDERED: NITROGLYCERIN SL 0.4 MG/TAB TAB SL PRN (21:35)
[2022-09-16] MEDS ORDERED: POLYETHYLENE (MIRALAX) 17 GM PACK PO PRN (21:35)
[2022-09-16] MEDS: methylPREDNISolone 40 MG in SYRINGE 0 ML IV SCH (22:12)
[2022-09-16] MEDS: DOXYCYCLINE HYCLATE 100 MG in DEXTROSE 5% 100 ML IV SCH (22:12)
[2022-09-16] MEDS: ENOXAPARIN INJ 40 MG/0.4 ML SYR SQ SCH (22:12)
[2022-09-16] MEDS: GABAPENTIN 100 MG CAP PO SCH (22:13)
[2022-09-16] MEDS: TAMSULOSIN HCL 0.4 MG CAP PO SCH (22:13)
[2022-09-16] MEDS: MIRTAZAPINE TAB 15 MG TAB PO SCH (22:13)
--- NOTE | 2022-09-16 22:19 | History and Physical Report ---
DATE OF ADMISSION: 09/16/2022 CHIEF COMPLAINT: Shortness of breath. HISTORY OF PRESENT ILLNESS: This is an 82-year-old male with past medical history significant for chronic respiratory failure on home oxygen 3 L, obstructive sleep apnea on CPAP at bedtime, COPD, hypertension, GERD, vitamin B12 deficiency, BPH, overactive bladder, generalized osteoarthrosis, mild cognitive impairment, who lives with his , presents with weakness, falls and shortness of breath. The patient says that since 1 week, he is having cough and bringing out yellowish greenish phlegm, going on for last 1 week, getting progressively worse and was feeling short of breath and says he is falling frequently because of weakness. When he is falling , he in not able to get up, he has to take the help of his . That is the reason he was brought in here. Somewhat hard of hearing. Resting comfortably. Denies any headache, no dizziness, no blurred visions, no earache, having runny nose, no sore throat, no difficulty swallowing. Appetite is okay. No chest pain. No nausea, no vomiting, no abdominal pain. Normal bowel and bladder movements. No swelling in the legs, no rash. ALLERGIES: No known drug allergies. PAST MEDICAL HISTORY: As mentioned above. PAST SURGICAL HISTORY: History of surgery for cyst in the neck, ankle arthroscopy, colonoscopy, colonoscopy with biopsy, EGD, EGD with biopsy, laparoscopic cholecystectomy, laparoscopic repair of left inguinal hernia, left ankle replacement with ORIF, suprascapular nerve decompression on the right side, cataract surgeries, repair of chronic rotator cuff tear, left arthroscopy of shoulder. MEDICATIONS: The patient is on amlodipine 5 mg p.o. daily, ascorbic acid 500 mg p.o. daily, calcium plus vitamin D 1 capsule daily, vitamin B12 1000 mcg p.o. daily, Colace 100 mg p.o. b.i.d. p.r.n., donepezil 10 mg p.o. daily, finasteride 5 mg p.o. daily, gabapentin 100 mg p.o. t.i.d., lidocaine patch daily, losartan 25 mg p.o. daily, mirtazapine 15 mg p.o. at bedtime, omeprazole 20 mg p.o. daily, MiraLax 17 grams p.o. at bedtime, Flomax 0.4 mg p.o. at bedtime, multivitamin daily. FAMILY HISTORY: Significant for daughter has cancer, father had renal cell cancer, sister has arthritis, mother has colon cancer, brother has kidney disease. SOCIAL HISTORY: . Quit smoking in 1990, smoked 2 packs a day for 30 years. Alcohol occasional beer. No drug use. REVIEW OF SYSTEMS: As per HPI. Rest of the review of systems is negative. PHYSICAL EXAMINATION: GENERAL: The patient is of moderate build, not in acute distress. VITAL SIGNS: Temperature 36.6, pulse 82, respiratory rate 19, blood pressure 120/66, oxygen 95% on 3 L. HEENT: Pupils equal, round and reactive to light. Oral mucosa moist. NECK: No JVD, no neck masses. CARDIOVASCULAR: S1 and S2 heard. Regular rate and rhythm. No murmur, no gallop. RESPIRATORY SYSTEM: Clear to auscultation bilaterally. No wheezing. Occasional mild bilateral rhonchi heard. ABDOMEN: Soft, bowel sounds present, nontender, no distention. CENTRAL NERVOUS SYSTEM: Cranial nerves II through XII are grossly intact, nonfocal. EXTREMITIES: No edema, no erythema. LABORATORY DATA: WBC 8.8, hemoglobin 14.4, hematocrit 43.1, platelets 175. PT 11.3, INR 1.1, APTT 23.5. Sodium 140, potassium 4.2, chloride 105, bicarb 27, BUN 22, creatinine 1.1, serum glucose 98. Lactate 0.9, calcium 8.8, magnesium 2.3, total bilirubin 1.8, AST 27, ALT 15, alkaline phosphatase 80. Procalcitonin 1.08. SARS-CoV-2 PCR, influenza A and B PCR and RSV PCR negative. IMAGING DATA: Chest x-ray, right middle lung pneumonia. EKG: Normal sinus rhythm at a rate of 72 with inverted T-waves in inferior leads. ASSESSMENT AND PLAN: This 82-year-old male presents with ongoing shortness of breath, cough, weakness and found to have right mid lung pneumonia. 1. Right mid lung pneumonia, chronic obstructive pulmonary disease exacerbation, weakness from above. Start him on empiric antibiotics with Rocephin and doxycycline.Possible mild chronic obstructive pulmonary disease exacerbation, we will start him on IV Solu-Medrol 40 t.i.d., DuoNeb around the clock, continue home inhaler. Closely monitor in the med tele. We will monitor for response. 2. History of chronic respiratory failure, on 3 L oxygen. We will monitor. 3. History of sleep apnea: CPAP at bedtime. 4. History of hypertension: losartan and amlodipine. We will monitor the blood pressure. 5. History of gastroesophageal reflux disease, on omeprazole. 6. History of B12 deficiency, on supplements. 7. History of benign prostatic hypertrophy: On Flomax and Proscar. 8. Deep venous thrombosis prophylaxis: Lovenox. DISPOSITION: Closely monitor in the [facility] tele. PT/OT prior to discharge. Social service to help with discharge planning. Job ID: [id number] MTDD
[2022-09-16] MEDS: traMADol HCL 50 MG TABLET PO PRN (23:16)
[2022-09-16] MEDS: VESICARE: ORDER AWAITING ACTION SCH (23:44)
[2022-09-17 06:57] LABS: Basophils # (auto) 0.01 K/uL (0-0.2); Basophils % (auto) 0.1 %; Hematocrit (blood only) 39.6 % (40.1-51.0); Hemoglobin 13.1 g/dl (14.0-18.0); Immature Granulocytes # (auto) 0.05 K/uL (0.00-0.02); Immature Granulocytes % (auto) 0.7 %; Lymphocytes # (auto) 0.58 K/uL (1.2-3.4); Lymphocytes % (auto) 8.1 %; Mean Corpuscular Hemoglobin 33.4 pg (25.0-34.0); Mean Corpuscular Hgb Conc 33.1 g/dL (32.0-36.0); Mean Platelet Volume 11.3 fL (9.4-12.4); Monocytes # (auto) 0.15 K/uL (0.24-0.82); Monocytes % (auto) 2.1 %; Neutrophils # (auto) 6.36 K/uL (1.4-6.5); Platelet Count 163 K/uL (130-400); RDW Standard Deviation 51.9 fL (36.4-46.3); Red Blood Count 3.92 M/uL (4.63-6.08); White Blood Count 7.15 K/ul (4.8-10.8)
[2022-09-17] MEDS: ALBUT/IPRATROP 3MG/0.5MG NEB 3 ML VIAL NEB SCH ×4 (07:39→19:13)
[2022-09-17 07:40] LABS: BUN Creatinine Ratio 22.7 (10-20); Calcium 8.2 mg/dl (8.5-10.1); Creatinine Clr Calc Pharmacy 65.1 ml/min; Est GFR (African American) 83.3 ml/min; Est GFR (Non-African American) 71.9 ml/min; Magnesium 2.2 mg/dl (1.7-2.4); Potassium 4.4 mmol/L (3.5-5.1)
--- NOTE | 2022-09-17 08:26 | Electrocardiogram Report ---
Test Reason : Blood Pressure : / mmHG Vent. Rate : 072 BPM Atrial Rate : 072 BPM P-R Int : 142 ms QRS Dur : 068 ms QT Int : 346 ms P-R-T Axes : 025 000 -02 degrees QTc Int : 378 ms Normal sinus rhythm Minimal voltage criteria for LVH, may be normal variant Abnormal ECG When compared with ECG of 30-JUN-2022 19:31, Premature supraventricular complexes are no longer Present Confirmed by Wolfgang Hamilton ([id number]) on 09/17/2022 8:26:06 AM Referred By: REFERRED SELF Confirmed By:Wolfgang Hamilton
[2022-09-17] MEDS: VESICARE: ORDER AWAITING ACTION SCH ×3 (08:40→22:34)
[2022-09-17] MEDS ORDERED: UMECLIDINIUM BROMIDE 62.5MCG/BLISTER 7 PUFFS/INHALER INH SCH (09:00)
[2022-09-17] MEDS: ASCORBIC ACID 500 MG TAB PO SCH (09:18)
[2022-09-17] MEDS: GABAPENTIN 100 MG CAP PO SCH ×3 (09:18→21:18)
[2022-09-17] MEDS: DONEPEZIL HCL 10 MG TAB PO SCH (09:18)
[2022-09-17] MEDS: LOSARTAN POTASSIUM 25 MG TAB PO SCH (09:18)
[2022-09-17] MEDS: POTASSIUM CITRATE 10 MEQ TAB PO SCH ×3 (09:18→21:19)
[2022-09-17] MEDS: PANTOprazole 40 MG TAB PO SCH (09:19)
[2022-09-17] MEDS: FINASTERIDE 5 MG TAB PO SCH (09:19)
[2022-09-17] MEDS: CYANOCOBALAMIN (B-12) 500 MCG TABLET PO SCH (09:19)
[2022-09-17] MEDS: CHOLECALCIFEROL 1,000 UNITS 25 MCG TAB PO SCH (09:19)
[2022-09-17] MEDS: CALCIUM 600MG + VIT D 400 IU TAB PO SCH (09:19)
[2022-09-17] MEDS: amLODIPine BESYLATE 5 MG TAB PO SCH (09:19)
[2022-09-17] MEDS: traMADol HCL 50 MG TABLET PO PRN ×2 (09:24→21:22)
[2022-09-17] MEDS: cefTRIAXone SODIUM 2,000 MG in DEXTROSE 5% 50 ML IV SCH (09:25)
[2022-09-17] MEDS: DOXYCYCLINE HYCLATE 100 MG in DEXTROSE 5% 100 ML IV SCH ×2 (10:19→22:33)
[2022-09-17] MEDS: methylPREDNISolone 40 MG in SYRINGE 0 ML IV SCH ×2 (10:19→21:19)
--- NOTE | 2022-09-17 11:21 | Hospitalist Progress Note ---
Date of Service September 17, 2022 Assessment & Plan (1) Acute hypoxemic respiratory failure: (2) COPD exacerbation: (3) Pneumonia: Plan: Presents from home with shortness of breath, cough and weakness. History of COPD on inhaler. Last admission with intractable rib fracture pain. Discharged on 3 L of nasal cannula. Chest x-ray on admission shows right midlung pneumonia and pulmonary edema. Pro-Dyaln 1.08. Plan: Continue on duo nebs [id number]. Continue on budesonide and formoterol nebulization. Continue on IV methylprednisolone for now. Continue on ceftriaxone and doxycycline. Started on Lasix 20 mg twice daily given pulmonary edema on x-ray. No echo found in EMR; will obtain to assess for pulmonary hypertension and given presentation Continue on hypertonic saline for pulmonary toileting and flutter valve Plan Chronic conditions: History of sleep apnea: CPAP at bedtime. History of hypertension: losartan and amlodipine. We will monitor the blood pressure. History of gastroesophageal reflux disease, on omeprazole. History of B12 deficiency, on supplements. History of benign prostatic hypertrophy: On Flomax and Proscar. Deep venous thrombosis prophylaxis: Lovenox. Full code Admission and Anticipated Discharge Date Admission Date: September 16, 2022 Subjective Patient seen and examined at bedside. He is lying in the bed comfortably; not in distress. He reports generalized weakness and fatigue. He also reports unable to get phlegm out and complaints of chest congestion Review of Systems Review of Systems: All systems reviewed & are unremarkable except as noted in Subjective Physical Exam Physical Exam: Constitutional: WD/WN, vitals as above, NAD, sitting up in bed, pleasant, conversing easily Respiratory: Occasional wheeze heard; basilar crackles present. Cardiovascular: RRR, no murmur, no edema Vessels: no JVD or carotid bruit Chest: normal inspection of chest Abdomen: normal bowel sounds, soft, nontender, no hepatosplenomegaly Musculoskeletal: no cyanosis or clubbing, extremities motor strength 5/5 Skin: no rashes, warm and dry normal turgor Neurologic: PERRL, EOMI, accommodation nl, no face palsy, no dysarthria CN's II- XI intact bilaterally and moves all extremities Psychiatric: A+Ox3, euthymic affect Lymphatic: no cervical or axillary lymphadenopathy : deferred Results & Data Results & Data ([facility]) Vital Signs (Past 12 Hours) Vital Signs Temp Pulse Pulse Resp BP Pulse Ox O2 Del Method 09/17/22 11:05 36.4 C L 60 20 113/60 94 Nasal Cannula 09/17/22 09:13 Nasal Cannula 09/17/22 07:57 36.7 C 60 18 105/67 94 Nasal Cannula 09/17/22 07:40 58 L 18 91 Nasal Cannula 09/17/22 06:54 65 09/17/22 02:56 36.9 C 61 20 115/65 90 CPAP 09/17/22 00:02 86 22 90 O2 Flow Rate 09/17/22 11:05 3 09/17/22 09:13 3 09/17/22 07:57 3 09/17/22 07:40 4 09/17/22 06:54 09/17/22 02:56 09/17/22 00:02 12 Laboratory Results Laboratory Results WBC 7.15 K/ul (4.8-10.8) 09/17/22 06:39 RBC 3.92 M/uL (4.63-6.08) L 09/17/22 06:39 Hgb 13.1 g/dl (14.0-18.0) L 09/17/22 06:39 Hct 39.6 % (40.1-51.0) L 09/17/22 06:39 MCV 101.0 fL (80.0-100.0) H 09/17/22 06:39 MCH 33.4 pg (25.0-34.0) 09/17/22 06:39 MCHC 33.1 g/dL (32.0-36.0) 09/17/22 06:39 RDW Std Deviation 51.9 fL (36.4-46.3) H 09/17/22 06:39 RDW Coeff of [place] 14.0 % (11.5-14.5) 09/17/22 06:39 Plt Count 163 K/uL (130-400) 09/17/22 06:39 MPV 11.3 fL (9.4-12.4) 09/17/22 06:39 Immature Gran % (Auto) 0.7 % 09/17/22 06:39 Neut % (Auto) 89.0 % 09/17/22 06:39 Lymph % (Auto) 8.1 % 09/17/22 06:39 [place] % (Auto) 2.1 % 09/17/22 06:39 Eos % (Auto) 0.0 % 09/17/22 06:39 Baso % (Auto) 0.1 % 09/17/22 06:39 Neut # (Auto) 6.36 K/uL (1.4-6.5) 09/17/22 06:39 Lymph # (Auto) 0.58 K/uL (1.2-3.4) L 09/17/22 06:39 [place] # (Auto) 0.15 K/uL (0.24-0.82) L 09/17/22 06:39 Eos # (Auto) 0.00 K/uL (0-0.50) 09/17/22 06:39 Baso # (Auto) 0.01 K/uL (0-0.2) 09/17/22 06:39 Immature Gran # (Auto) 0.05 K/uL (0.00-0.02) H 09/17/22 06:39 PT 11.3 Seconds (9.0-12.0) 09/16/22 17:09 INR 1.1 (0.9-1.1) 09/16/22 17:09 APTT 23.5 Seconds (21.0-31.0) 09/16/22 17:09 PTT Ratio 0.9 09/16/22 17:09 Sodium 140 mmol/L (136-145) 09/17/22 06:39 Potassium 4.4 mmol/L (3.5-5.1) 09/17/22 06:39 Chloride 109 mmol/L (98-107) H 09/17/22 06:39 Carbon Dioxide 26 mmol/L (21-32) 09/17/22 06:39 Anion Gap 5 (3-11) 09/17/22 06:39 BUN 22 mg/dl (6-23) 09/17/22 06:39 Creatinine 0.97 mg/dl (0.6-1.4) 09/17/22 06:39 Est Cr Clr Drug Dosing 65.1 ml/min 09/17/22 06:39 Est GFR ( Amer) 83.3 ml/min 09/17/22 06:39 Est GFR (Non-Af Amer) 71.9 ml/min 09/17/22 06:39 BUN/Creatinine Ratio 22.7 (10-20) H 09/17/22 06:39 Glucose 148 mg/dl (70-99(Fasting)) H 09/17/22 06:39 Lactate 0.9 mmol/L (0.4-2.0) 09/16/22 19:22 Calcium 8.2 mg/dl (8.5-10.1) L 09/17/22 06:39 Magnesium 2.2 mg/dl (1.7-2.4) 09/17/22 06:39 Total Bilirubin 1.8 mg/dl (0.2-1.0) H 09/16/22 17:09 AST 27 U/L (13-39) 09/16/22 17:09 ALT 15 U/L (7-52) 09/16/22 17:09 Alkaline Phosphatase 80 U/L (34-104) 09/16/22 17:09 Total Protein 7.0 gm/dl (6.0-8.3) 09/16/22 17:09 Albumin 3.6 gm/dl (3.4-5.0) 09/16/22 17:09 Globulin 3.4 gm/dl (2.5-4.0) 09/16/22 17:09 Albumin/Globulin Ratio 1.1 (0.9-2) 09/16/22 17:09 Procalcitonin 1.08 ng/ml (0-0.5) H 09/16/22 17:09 SARS-CoV-2 (PCR) NEGATIVE (Negative) 09/16/22 19:44 Influenza Type A (PCR) Negative (Neg) 09/16/22 19:44 Influenza Type B (PCR) Negative (Neg) 09/16/22 19:44 RSV (RT-PCR) Negative (Neg) 09/16/22 19:44 Impressions Chest X-Ray 09/16/22 16:14 XR chest 1V portable HISTORY: 82 years-old Male SOB acute shortness of breath COMPARISON: Chest CT 07/01/2022 TECHNIQUE: AP view of the chest FINDINGS: Cardiomediastinal and hilar silhouettes are unchanged. Severe emphysema with chronic interstitial coarsening. Ill-defined bibasilar and right midlung airspace opacities. Mild pulmonary vascular congestion with probable trace pleural effusions. No pneumothorax. Degenerative changes of the shoulders and spine. IMPRESSION: 1. Cardiomegaly with pulmonary vascular congestion. 2. Severe emphysema with chronic interstitial coarsening. 3. Mild bibasilar and right midlung ill-defined airspace opacities may represent a mild infectious or inflammatory pneumonitis. 4. Trace pleural effusions. ACT 112: Negative or not required by law. The above report was generated using voice recognition software. It may contain grammatical, syntax or spelling errors. Electronically signed by: Josue Al M.D. 09/16/2022 4:50 PM
[2022-09-17] MEDS: FORMOTEROL 20 MCG/2 ML VIAL NEB SCH ×2 (11:42→19:14)
[2022-09-17] MEDS: FUROSEMIDE 20 MG TAB PO SCH ×2 (11:51→16:40)
[2022-09-17] MEDS: SODIUM CHLOR 7% 4 ML NEB NEB SCH (19:13)
[2022-09-17] MEDS: BUDESONIDE 0.5 MG/2 ML VIAL (PULMICORT) NEB SCH (19:13)
[2022-09-17] MEDS: ENOXAPARIN INJ 40 MG/0.4 ML SYR SQ SCH (21:16)
[2022-09-17] MEDS: MIRTAZAPINE TAB 15 MG TAB PO SCH (21:17)
[2022-09-17] MEDS: POLYETHYLENE (MIRALAX) 17 GM PACK PO SCH (21:17)
[2022-09-17] MEDS: TAMSULOSIN HCL 0.4 MG CAP PO SCH (21:18)
[2022-09-17] MEDS: guaiFENesin 600 MG TABCR PO SCH (21:19)
[2022-09-18] MEDS: BUDESONIDE 0.5 MG/2 ML VIAL (PULMICORT) NEB SCH ×2 (07:10→19:39)
[2022-09-18] MEDS: ALBUT/IPRATROP 3MG/0.5MG NEB 3 ML VIAL NEB SCH ×4 (07:10→19:39)
[2022-09-18] MEDS: SODIUM CHLOR 7% 4 ML NEB NEB SCH ×2 (07:10→19:39)
[2022-09-18] MEDS: FORMOTEROL 20 MCG/2 ML VIAL NEB SCH ×2 (07:11→19:39)
[2022-09-18 08:14] LABS: Basophils # (auto) 0.02 K/uL (0-0.2); Basophils % (auto) 0.2 %; Hematocrit (blood only) 38.7 % (40.1-51.0); Hemoglobin 13.1 g/dl (14.0-18.0); Immature Granulocytes # (auto) 0.08 K/uL (0.00-0.02); Immature Granulocytes % (auto) 0.8 %; Lymphocytes # (auto) 1.02 K/uL (1.2-3.4); Lymphocytes % (auto) 10.8 %; Mean Corpuscular Hemoglobin 33.3 pg (25.0-34.0); Mean Corpuscular Hgb Conc 33.9 g/dL (32.0-36.0); Mean Corpuscular Volume 98.5 fL (80.0-100.0); Mean Platelet Volume 11.3 fL (9.4-12.4); Monocytes # (auto) 0.37 K/uL (0.24-0.82); Monocytes % (auto) 3.9 %; Neutrophils # (auto) 7.94 K/uL (1.4-6.5); Neutrophils % (auto) 84.3 %; Platelet Count 184 K/uL (130-400); RDW Coefficient of Variation 13.7 % (11.5-14.5); RDW Standard Deviation 50.4 fL (36.4-46.3); Red Blood Count 3.93 M/uL (4.63-6.08); White Blood Count 9.43 K/ul (4.8-10.8)
[2022-09-18 08:35] LABS: BUN Creatinine Ratio 32.6 (10-20); Calcium 8.5 mg/dl (8.5-10.1); Creatinine Clr Calc Pharmacy 71.1 ml/min; Est GFR (African American) 91.6 ml/min; Est GFR (Non-African American) 79.1 ml/min; Potassium 4.1 mmol/L (3.5-5.1)
[2022-09-18] MEDS: VESICARE: ORDER AWAITING ACTION SCH ×2 (09:36→15:49)
[2022-09-18] MEDS: DONEPEZIL HCL 10 MG TAB PO SCH (09:38)
[2022-09-18] MEDS: amLODIPine BESYLATE 5 MG TAB PO SCH (09:39)
[2022-09-18] MEDS: PANTOprazole 40 MG TAB PO SCH (09:39)
[2022-09-18] MEDS: LOSARTAN POTASSIUM 25 MG TAB PO SCH (09:39)
[2022-09-18] MEDS: CALCIUM 600MG + VIT D 400 IU TAB PO SCH (09:40)
[2022-09-18] MEDS: POTASSIUM CITRATE 10 MEQ TAB PO SCH ×3 (09:40→21:09)
[2022-09-18] MEDS: FINASTERIDE 5 MG TAB PO SCH (09:40)
[2022-09-18] MEDS: ASCORBIC ACID 500 MG TAB PO SCH (09:40)
[2022-09-18] MEDS: methylPREDNISolone 40 MG in SYRINGE 0 ML IV SCH (09:41)
[2022-09-18] MEDS: GABAPENTIN 100 MG CAP PO SCH ×3 (09:41→21:09)
[2022-09-18] MEDS: FUROSEMIDE 20 MG TAB PO SCH (09:42)
[2022-09-18] MEDS: CYANOCOBALAMIN (B-12) 500 MCG TABLET PO SCH (09:43)
[2022-09-18] MEDS: CHOLECALCIFEROL 1,000 UNITS 25 MCG TAB PO SCH (09:44)
[2022-09-18] MEDS: cefTRIAXone SODIUM 2,000 MG in DEXTROSE 5% 50 ML IV SCH (10:16)
--- NOTE | 2022-09-18 11:02 | Hospitalist Progress Note ---
Date of Service September 18, 2022 Assessment & Plan (1) Acute hypoxemic respiratory failure: (2) COPD exacerbation: (3) Pneumonia: Plan: Presents from home with shortness of breath, cough and weakness. History of COPD on inhaler. Last admission with intractable rib fracture pain. Discharged on 3 L of nasal cannula. Chest x-ray on admission shows right midlung pneumonia and pulmonary edema. Pro-Dylan 1.08. Echo- EF of 60-65%; grade 1 diastolic dysfunction. Plan: Continue on duo nebs [id number]. Continue on budesonide and formoterol nebulization. Change to oral steroids on prednisone 40mg for 3 more days. Continue on ceftriaxone and doxycycline Day 3. Continue on hypertonic saline for pulmonary toileting and flutter valve Plan Chronic conditions: History of sleep apnea: CPAP at bedtime. History of hypertension: losartan and amlodipine. We will monitor the blood pressure. History of gastroesophageal reflux disease, on omeprazole. History of B12 deficiency, on supplements. History of benign prostatic hypertrophy: On Flomax and Proscar. Dementia- Aricept Deep venous thrombosis prophylaxis: Lovenox. Full code Admission and Anticipated Discharge Date Admission Date: September 16, 2022 Subjective Patient reports comfortable; not in any distress. He reports he is breathing well and weakness has improved. Review of Systems Review of Systems: All systems reviewed & are unremarkable except as noted in Subjective Physical Exam Physical Exam: Constitutional: WD/WN, vitals as above, NAD, sitting up in bed, pleasant, conversing easily Respiratory: Occasional wheeze heard; basilar crackles present. Cardiovascular: RRR, no murmur, no edema Vessels: no JVD or carotid bruit Chest: normal inspection of chest Abdomen: normal bowel sounds, soft, nontender, no hepatosplenomegaly Musculoskeletal: no cyanosis or clubbing, extremities motor strength 5/5 Skin: no rashes, warm and dry normal turgor Neurologic: PERRL, EOMI, accommodation nl, no face palsy, no dysarthria CN's II- XI intact bilaterally and moves all extremities Psychiatric: A+Ox3, euthymic affect Lymphatic: no cervical or axillary lymphadenopathy : deferred Results & Data Results & Data ([facility]) Vital Signs (Past 12 Hours) Vital Signs Temp Pulse Pulse Resp BP BP Pulse Ox 09/18/22 08:04 36.1 C L 64 18 122/71 93 12/15/22 07:25 50 L 09/18/22 07:19 65 18 97 09/18/22 03:14 36.4 C L 64 16 136/72 92 09/17/22 23:13 36.4 C L 50 L 18 120/60 94 O2 Del Method O2 Flow Rate 09/18/22 08:04 CPAP 3 09/18/22 07:25 09/18/22 07:19 CPAP 3 09/18/22 03:14 CPAP 09/17/22 23:13 CPAP Laboratory Results Laboratory Results WBC 9.43 K/ul (4.8-10.8) 09/18/22 07:47 RBC 3.93 M/uL (4.63-6.08) L 09/18/22 07:47 Hgb 13.1 g/dl (14.0-18.0) L 09/18/22 07:47 Hct 38.7 % (40.1-51.0) L 09/18/22 07:47 MCV 98.5 fL (80.0-100.0) 09/18/22 07:47 MCH 33.3 pg (25.0-34.0) 09/18/22 07:47 MCHC 33.9 g/dL (32.0-36.0) 09/18/22 07:47 RDW Std Deviation 50.4 fL (36.4-46.3) H 09/18/22 07:47 RDW Coeff of [place] 13.7 % (11.5-14.5) 09/18/22 07:47 Plt Count 184 K/uL (130-400) 09/18/22 07:47 MPV 11.3 fL (9.4-12.4) 09/18/22 07:47 Immature Gran % (Auto) 0.8 % 09/18/22 07:47 Neut % (Auto) 84.3 % 09/18/22 07:47 Lymph % (Auto) 10.8 % 09/18/22 07:47 [place] % (Auto) 3.9 % 09/18/22 07:47 Eos % (Auto) 0.0 % 09/18/22 07:47 Baso % (Auto) 0.2 % 09/18/22 07:47 Neut # (Auto) 7.94 K/uL (1.4-6.5) H 09/18/22 07:47 Lymph # (Auto) 1.02 K/uL (1.2-3.4) L 09/18/22 07:47 [place] # (Auto) 0.37 K/uL (0.24-0.82) 09/18/22 07:47 Eos # (Auto) 0.00 K/uL (0-0.50) 09/18/22 07:47 Baso # (Auto) 0.02 K/uL (0-0.2) 09/18/22 07:47 Immature Gran # (Auto) 0.08 K/uL (0.00-0.02) H 09/18/22 07:47 PT 11.3 Seconds (9.0-12.0) 09/16/22 17:09 INR 1.1 (0.9-1.1) 09/16/22 17:09 APTT 23.5 Seconds (21.0-31.0) 09/16/22 17:09 PTT Ratio 0.9 09/16/22 17:09 Sodium 140 mmol/L (136-145) 09/18/22 07:47 Potassium 4.1 mmol/L (3.5-5.1) 09/18/22 07:47 Chloride 108 mmol/L (98-107) H 09/18/22 07:47 Carbon Dioxide 25 mmol/L (21-32) 09/18/22 07:47 Anion Gap 7 (3-11) 09/18/22 07:47 BUN 29 mg/dl (6-23) H 09/18/22 07:47 Creatinine 0.89 mg/dl (0.6-1.4) 09/18/22 07:47 Est Cr Clr Drug Dosing 71.1 ml/min 09/18/22 07:47 Est GFR ( Amer) 91.6 ml/min 09/18/22 07:47 Est GFR (Non-Af Amer) 79.1 ml/min 09/18/22 07:47 BUN/Creatinine Ratio 32.6 (10-20) H 09/18/22 07:47 Glucose 120 mg/dl (70-99(Fasting)) H 09/18/22 07:47 Lactate 0.9 mmol/L (0.4-2.0) 09/16/22 19:22 Calcium 8.5 mg/dl (8.5-10.1) 09/18/22 07:47 Magnesium 2.2 mg/dl (1.7-2.4) 09/17/22 06:39 Total Bilirubin 1.8 mg/dl (0.2-1.0) H 09/16/22 17:09 AST 27 U/L (13-39) 09/16/22 17:09 ALT 15 U/L (7-52) 09/16/22 17:09 Alkaline Phosphatase 80 U/L (34-104) 09/16/22 17:09 Total Protein 7.0 gm/dl (6.0-8.3) 09/16/22 17:09 Albumin 3.6 gm/dl (3.4-5.0) 09/16/22 17:09 Globulin 3.4 gm/dl (2.5-4.0) 09/16/22 17:09 Albumin/Globulin Ratio 1.1 (0.9-2) 09/16/22 17:09 Procalcitonin 1.08 ng/ml (0-0.5) H 09/16/22 17:09 SARS-CoV-2 (PCR) NEGATIVE (Negative) 09/16/22 19:44 Influenza Type A (PCR) Negative (Neg) 09/16/22 19:44 Influenza Type B (PCR) Negative (Neg) 09/16/22 19:44 RSV (RT-PCR) Negative (Neg) 09/16/22 19:44 Impressions Chest X-Ray 09/16/22 16:14 XR chest 1V portable HISTORY: 82 years-old Male SOB acute shortness of breath COMPARISON: Chest CT 07/01/2022 TECHNIQUE: AP view of the chest FINDINGS: Cardiomediastinal and hilar silhouettes are unchanged. Severe emphysema with chronic interstitial coarsening. Ill-defined bibasilar and right midlung airspace opacities. Mild pulmonary vascular congestion with probable trace pleural effusions. No pneumothorax. Degenerative changes of the shoulders and spine. IMPRESSION: 1. Cardiomegaly with pulmonary vascular congestion. 2. Severe emphysema with chronic interstitial coarsening. 3. Mild bibasilar and right midlung ill-defined airspace opacities may represent a mild infectious or inflammatory pneumonitis. 4. Trace pleural effusions. ACT 112: Negative or not required by law. The above report was generated using voice recognition software. It may contain grammatical, syntax or spelling errors. Electronically signed by: Josue Al M.D. 09/16/2022 4:50 PM
[2022-09-18] MEDS: DOXYCYCLINE HYCLATE 100 MG in DEXTROSE 5% 100 ML IV SCH ×2 (11:49→21:17)
[2022-09-18] MEDS: ENOXAPARIN INJ 40 MG/0.4 ML SYR SQ SCH (21:07)
[2022-09-18] MEDS: TAMSULOSIN HCL 0.4 MG CAP PO SCH (21:08)
[2022-09-18] MEDS: guaiFENesin 600 MG TABCR PO SCH (21:08)
[2022-09-18] MEDS: MIRTAZAPINE TAB 15 MG TAB PO SCH (21:10)
[2022-09-18] MEDS: POLYETHYLENE (MIRALAX) 17 GM PACK PO SCH (21:10)
[2022-09-18] MEDS: traMADol HCL 50 MG TABLET PO PRN (22:52)
[2022-09-19] MEDS: VESICARE: ORDER AWAITING ACTION SCH ×2 (01:21→09:13)
[2022-09-19] MEDS ORDERED: KETOROLAC TROMETHAMINE 15 MG/ML VIAL IV ONE (01:46)
[2022-09-19] MEDS ORDERED: ALBUMIN 25% 100 mL 25 GM/100 ML VIAL IV ONE (01:50)
[2022-09-19] MEDS ORDERED: OPTIRAY 350 100ml IV ONE (02:19)
[2022-09-19 04:21] LABS: Hematocrit (blood only) 35.2 % (40.1-51.0); Mean Corpuscular Hemoglobin 32.9 pg (25.0-34.0); Mean Corpuscular Hgb Conc 34.1 g/dL (32.0-36.0); Mean Corpuscular Volume 96.4 fL (80.0-100.0); Mean Platelet Volume 11.4 fL (9.4-12.4); Platelet Count 194 K/uL (130-400); RDW Coefficient of Variation 14.1 % (11.5-14.5); RDW Standard Deviation 50.4 fL (36.4-46.3); Red Blood Count 3.65 M/uL (4.63-6.08); White Blood Count 8.95 K/ul (4.8-10.8)
[2022-09-19 04:42] LABS: Albumin Globulin Ratio 1.1 (0.9-2); Albumin Level 3.2 gm/dl (3.4-5.0); BUN Creatinine Ratio 30.3 (10-20); Bilirubin,Total 0.5 mg/dl (0.2-1.0); Calcium 8.4 mg/dl (8.5-10.1); Creatinine Clr Calc Pharmacy 63.9 ml/min; Est GFR (African American) 81.3 ml/min; Est GFR (Non-African American) 70.1 ml/min; Globulin 2.9 gm/dl (2.5-4.0); Potassium 4.1 mmol/L (3.5-5.1); Total Protein 6.1 gm/dl (6.0-8.3)
[2022-09-19 06:13] LABS: Basophils # (auto) 0.02 K/uL (0-0.2); Basophils % (auto) 0.2 %; Immature Granulocytes # (auto) 0.07 K/uL (0.00-0.02); Immature Granulocytes % (auto) 0.8 %; Lymphocytes # (auto) 1.98 K/uL (1.2-3.4); Lymphocytes % (auto) 22.1 %; Monocytes # (auto) 0.63 K/uL (0.24-0.82); Neutrophils # (auto) 6.25 K/uL (1.4-6.5); Neutrophils % (auto) 69.9 %
[2022-09-19] MEDS: SODIUM CHLOR 7% 4 ML NEB NEB SCH ×2 (07:13→19:45)
[2022-09-19] MEDS: ALBUT/IPRATROP 3MG/0.5MG NEB 3 ML VIAL NEB SCH ×3 (07:16→19:46)
[2022-09-19] MEDS: BUDESONIDE 0.5 MG/2 ML VIAL (PULMICORT) NEB SCH ×2 (07:16→19:45)
[2022-09-19] MEDS ORDERED: MAGNESIUM HYDROXIDE SUSP 30 ML UDC PO PRN (08:01)
--- NOTE | 2022-09-19 08:22 | CT Scan Report ---
ABDOMEN AND PELVIS CT WITH IV CONTRAST CT DOSE: 656.09 mGy.cm HISTORY: Lower abdominal pain. TECHNIQUE: Multiaxial CT images of the abdomen and pelvis were performed following the use of intrave nous contrast. A dose lowering technique was utilized adhering to the principles of ALARA. COMPARISON STUDY: Abdomen and pelvis CT 10/13/2017. FINDINGS: There is an old mild to moderate anterior wedge-shaped compression deformity at T11. Focal superior endplate deformity at L3 is also likely chronic. Degenerative changes within the lumbar spin e. Stable 10 mm right lower lobe subpleural nodule on image 36. This is likely benign given the long- term stability. Calcified granuloma within the lingula and a stable 4 mm nodule in the left lower lob e on image 21. Emphysema again noted. Small patchy groundglass densities within the base of the right lower lobe are new from the prior study. This may represent a low-grade pneumonitis. No pneumoperito neum. No pneumatosis. There are old, healed bilateral rib fractures. Cholecystectomy. The liver, sple en, adrenal glands, and pancreas are unremarkable. Bilateral nephrolithiasis. A 6 mm hypodense lesion within the left kidney is technically too small to characterize but favors a cyst. The portal vein i s patent. Mild bilateral perinephric edema which is likely chronic. No ureteral stones. No hydronephr osis. The bladder is underdistended which may account for the apparent bladder wall thickening. There is a mildly ectatic abdominal aorta. No retroperitoneal or pelvic lymphadenopathy. Prior left inguin al hernia repair. Colonic diverticulosis. No evidence for acute diverticulitis. No bowel wall thicken ing or obstruction. Normal appendix. Moderate well-formed stool seen throughout the colon. IMPRESSION: 1. No bowel wall thickening or obstruction. 2. Bilateral nephrolithiasis. No ureteral stones. No hydronephrosis. 3. Normal appendix. 4. Small patchy groundglass densities within the base of the right lower lobe. This may represent a l ow-grade pneumonitis. 5. Emphysema. 6. Additional findings as described above. ACT 112: Negative or not required by law. Electronically signed by: Joby Salazar M.D. 09/19/2022 8:21 AM
[2022-09-19] MEDS ORDERED: DOXYCYCLINE HYCLATE 100 MG CAP PO SCH (09:00)
[2022-09-19] MEDS: amLODIPine BESYLATE 5 MG TAB PO SCH (09:13)
[2022-09-19] MEDS: GABAPENTIN 100 MG CAP PO SCH ×3 (09:14→20:25)
[2022-09-19] MEDS: POTASSIUM CITRATE 10 MEQ TAB PO SCH ×3 (09:14→20:24)
[2022-09-19] MEDS: CHOLECALCIFEROL 1,000 UNITS 25 MCG TAB PO SCH (09:15)
[2022-09-19] MEDS: FINASTERIDE 5 MG TAB PO SCH (09:15)
[2022-09-19] MEDS: DONEPEZIL HCL 10 MG TAB PO SCH (09:15)
[2022-09-19] MEDS: PANTOprazole 40 MG TAB PO SCH (09:16)
[2022-09-19] MEDS: CALCIUM 600MG + VIT D 400 IU TAB PO SCH (09:17)
[2022-09-19] MEDS: predniSONE 20 MG TAB PO SCH (09:18)
[2022-09-19] MEDS: CYANOCOBALAMIN (B-12) 500 MCG TABLET PO SCH (09:18)
[2022-09-19] MEDS: ASCORBIC ACID 500 MG TAB PO SCH (09:18)
[2022-09-19] MEDS: LOSARTAN POTASSIUM 25 MG TAB PO SCH (09:18)
[2022-09-19] MEDS: cefTRIAXone SODIUM 2,000 MG in DEXTROSE 5% 50 ML IV SCH (09:26)
[2022-09-19] MEDS: POLYETHYLENE (MIRALAX) 17 GM PACK PO SCH ×2 (09:26→20:23)
[2022-09-19] MEDS: FORMOTEROL 20 MCG/2 ML VIAL NEB SCH ×2 (11:10→19:46)
[2022-09-19] MEDS: DOXYCYCLINE HYCLATE 100 MG CAP PO SCH ×2 (11:48→20:23)
[2022-09-19 11:56] LABS: Hematocrit (blood only) 35.3 % (40.1-51.0)
[2022-09-19 13:48] LABS: Appearance Urine Clear (Clear); Bacteria Urine Automated Negative (Negative); Bilirubin Urine Negative (Negative); Blood Urine Negative (Negative); Cast Urine Automated 0 /lpf (0-5); Color Urine Yellow; Glucose Urine UA Negative (Negative); Ketones Urine Negative (Negative); Leukocyte Esterase Urine 2+ (Negative); Nitrite Urine Negative (Negative); Protein Urine Negative (Negative); RBC Urine Automated 0-4 /hpf (0-4); Specific Gravity Urine 1.009 (1.000-1.030); Urobilinogen Urine Negative (Negative); pH Urine 6.5 (4.5-7.5)
--- NOTE | 2022-09-19 16:58 | Hospitalist Progress Note ---
Date of Service September 19, 2022 Assessment & Plan (1) Acute hypoxemic respiratory failure: (2) COPD exacerbation: (3) Pneumonia: Plan: History of COPD Last admission with intractable rib fracture pain. Discharged on 3 L of nasal cannula. Presents from home with shortness of breath, cough and weakness. Chest x-ray on admission shows right midlung pneumonia and pulmonary edema. Pro-Dylan 1.08. Echo- EF of 60-65%; grade 1 diastolic dysfunction. --Patient is clinically improving Reduce DuoNeb to twice daily Continue budesonide, formoterol IV Solu-Medrol transitioned to prednisone 40 mg daily x2 more days Also on on ceftriaxone and doxycycline Day 4, transition to cefdinir plus doxycycline x3 more days upon discharge Constipation Had a bowel movement this morning, patient noted black stools-which according to the patient happens when he is constipated Hemoglobin stable at 12 Check fecal occult blood test Protonix 40 mg IV twice daily ordered Monitor Plan Chronic conditions: History of sleep apnea: CPAP at bedtime. History of hypertension: losartan and amlodipine. History of gastroesophageal reflux disease, usually on omeprazole History of B12 deficiency, on supplements. History of benign prostatic hypertrophy: On Flomax and Proscar. Dementia- Aricept Deep venous thrombosis prophylaxis: Lovenox. Full code Disposition Anticipate discharge to home when medically stable, active GI bleed ruled out Admission and Anticipated Discharge Date Admission Date: September 16, 2022 Subjective Follow-up for COPD exacerbation, right middle lobe pneumonia, etc. 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 scan unremarkable Had a large bowel movement this morning with relief of symptoms Reports black stools which according to the patient happens when he is constipated Denies hematochezia, hematemesis No other symptoms Review of Systems Review of Systems: all noted and negative except for above Physical Exam Physical Exam: General- oriented x 3, not in distress, speaks in sentences with no effort or accessory muscle use Eyes- anicteric Neck- no JVD Lungs- clear breath sounds bilaterally, no crackles or wheezing, good air entry bilaterally Heart- normal rate, regular rhythm; no murmurs Abdomen- normal bowel sounds, nondistended, soft, nontender Extremities- no pretibial edema, no calf tenderness Neuro- alert, oriented x 3; no gross focal neurologic deficits Skin- warm & dry Results & Data Results & Data ([facility]) Vital Signs (Past 12 Hours) Vital Signs Temp Pulse Pulse Resp BP Pulse Ox O2 Del Method 09/19/22 15:09 36.6 C 56 L 18 154/73 H 92 Nasal Cannula 09/19/22 14:08 63 09/19/22 06:07 61 09/19/22 09:00 Nasal Cannula 09/19/22 11:08 36.5 C 75 18 135/76 97 BiPAP 09/19/22 07:50 36.4 C L 58 L 18 161/75 H 96 Nasal Cannula 09/19/22 07:16 57 L 18 94 O2 Flow Rate 09/19/22 15:09 2 09/19/22 14:08 09/19/22 06:07 09/19/22 09:00 3 09/19/22 11:08 09/19/22 07:50 3 09/19/22 07:16 all noted and reviewed including below
[2022-09-19 18:06] LABS: Hematocrit (blood only) 40.7 % (40.1-51.0); Hemoglobin 13.9 g/dl (14.0-18.0)
[2022-09-19] MEDS: PANTOprazole 40 MG in SYRINGE 0 ML IV SCH (20:22)
[2022-09-19] MEDS: guaiFENesin 600 MG TABCR PO SCH (20:25)
[2022-09-19] MEDS: MIRTAZAPINE TAB 15 MG TAB PO SCH (20:26)
[2022-09-19] MEDS: TAMSULOSIN HCL 0.4 MG CAP PO SCH (20:26)
[2022-09-19] MEDS ORDERED: PSYLLIUM or GUAR GUM FIBER POWDER PACKET PO SCH (21:00)
[2022-09-19] MEDS ORDERED: BENZONATATE 100 MG CAPSULE PO PRN (22:27)
[2022-09-19] MEDS ORDERED: BENZONATATE 100 MG CAPSULE PO ONE (22:27)
[2022-09-20] MEDS: BUDESONIDE 0.5 MG/2 ML VIAL (PULMICORT) NEB SCH (07:33)
[2022-09-20] MEDS: ALBUT/IPRATROP 3MG/0.5MG NEB 3 ML VIAL NEB SCH (07:33)
[2022-09-20] MEDS: SODIUM CHLOR 7% 4 ML NEB NEB SCH (07:33)
[2022-09-20] MEDS: FORMOTEROL 20 MCG/2 ML VIAL NEB SCH (07:33)
[2022-09-20] MEDS: LOSARTAN POTASSIUM 25 MG TAB PO SCH (09:05)
[2022-09-20] MEDS: POLYETHYLENE (MIRALAX) 17 GM PACK PO SCH (09:05)
[2022-09-20] MEDS: PANTOprazole 40 MG in SYRINGE 0 ML IV SCH ×2 (09:06→09:12)
[2022-09-20] MEDS: DONEPEZIL HCL 10 MG TAB PO SCH (09:06)
[2022-09-20] MEDS: CALCIUM 600MG + VIT D 400 IU TAB PO SCH (09:06)
[2022-09-20] MEDS: CHOLECALCIFEROL 1,000 UNITS 25 MCG TAB PO SCH (09:06)
[2022-09-20] MEDS: FINASTERIDE 5 MG TAB PO SCH (09:06)
[2022-09-20] MEDS: GABAPENTIN 100 MG CAP PO SCH ×2 (09:06→13:19)
[2022-09-20] MEDS: CYANOCOBALAMIN (B-12) 500 MCG TABLET PO SCH (09:06)
[2022-09-20] MEDS: POTASSIUM CITRATE 10 MEQ TAB PO SCH ×2 (09:06→13:19)
[2022-09-20] MEDS: predniSONE 20 MG TAB PO SCH (09:06)
[2022-09-20] MEDS: amLODIPine BESYLATE 5 MG TAB PO SCH (09:07)
[2022-09-20] MEDS: ASCORBIC ACID 500 MG TAB PO SCH (09:07)
[2022-09-20] MEDS: cefTRIAXone SODIUM 2,000 MG in DEXTROSE 5% 50 ML IV SCH (10:15)
[2022-09-20] MEDS: DOXYCYCLINE HYCLATE 100 MG CAP PO SCH (11:11)
--- NOTE | 2022-09-20 11:41 | Hospitalist Progress Note ---
Date of Service September 20, 2022 Assessment & Plan (1) Acute hypoxemic respiratory failure: (2) COPD exacerbation: (3) Pneumonia: Plan: History of COPD Last admission with intractable rib fracture pain. Discharged on 3 L of nasal cannula. Presents from home with shortness of breath, cough and weakness. Chest x-ray on admission shows right midlung pneumonia and pulmonary edema. Pro-Dylan 1.08. Echo- EF of 60-65%; grade 1 diastolic dysfunction. --Patient is clinically improving Reduce DuoNeb to twice daily Continue budesonide, formoterol IV Solu-Medrol transitioned to prednisone 40 mg daily x2 more days Also on on ceftriaxone and doxycycline Day 4, transition to cefdinir plus doxycycline x3 more days upon discharge Constipation Had a bowel movement this morning, patient noted black stools-which according to the patient happens when he is constipated Hemoglobin stable at 12 Check fecal occult blood test Protonix 40 mg IV twice daily ordered Monitor Plan Chronic conditions: History of sleep apnea: CPAP at bedtime. History of hypertension: losartan and amlodipine. History of gastroesophageal reflux disease, usually on omeprazole History of B12 deficiency, on supplements. History of benign prostatic hypertrophy: On Flomax and Proscar. Dementia- Aricept Deep venous thrombosis prophylaxis: Lovenox. Full code Disposition Anticipate discharge to home when medically stable, active GI bleed ruled out Admission and Anticipated Discharge Date Admission Date: September 16, 2022 Subjective Follow-up for COPD exacerbation, right middle lobe pneumonia, etc. 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 Had a large bowel movement this morning with relief of symptoms Reports black stools which according to the patient happens when he is constipated Denies hematochezia, hematemesis No other symptoms Results & Data Results & Data ([facility]) Vital Signs (Past 12 Hours) Vital Signs Temp Pulse Pulse Resp BP Pulse Ox O2 Del Method 09/20/22 10:31 46 L 09/20/22 07:57 36.3 C L 60 18 132/68 91 Nasal Cannula 09/20/22 07:37 78 20 91 Nasal Cannula 09/20/22 04:00 36.7 C 60 18 154/72 H 98 CPAP O2 Flow Rate 09/20/22 10:31 09/20/22 07:57 3 09/20/22 07:37 4 09/20/22 04:00 Laboratory Results Short CBC 09/19/22 09/19/22 Range/Units 11:32 17:52 Hgb 12.0 L 13.9 L (14.0-18.0) g/dl Hct 35.3 L 40.7 (40.1-51.0) % Urine 09/19/22 Range/Units Unknown Urine Color Yellow Urine Appearance Clear (Clear) Urine pH 6.5 (4.5-7.5) Ur Specific [place] 1.009 (1.000-1.030) Urine Protein Negative (Negative) Urine Glucose (UA) Negative (Negative) Medications Administered Current Inpatient Medications Acetaminophen (Acetaminophen 325 Mg Tab) 650 mg PO Q4H PRN PRN Reason: Pain or Fever Stop: 10/16/22 21:34 Last Admin: 09/17/22 16:40 Dose: 650 mg Albuterol (Albut/Ipratrop 3mg/0.5mg Neb 3 Ml Vial) 3 ml NEB BIDR [facility]; Protocol Stop: 10/19/22 18:59 Last Admin: 09/20/22 07:33 Dose: Not Given Amlodipine Besylate (Amlodipine Besylate 5 Mg Tab) 5 mg PO DAILY [facility] Stop: 10/17/22 08:59 Last Admin: 09/20/22 09:07 Dose: 5 mg Ascorbic Acid (Ascorbic Acid 500 Mg Tab) 500 mg PO DAILY [facility] Stop: 10/17/22 08:59 Last Admin: 09/20/22 09:07 Dose: 500 mg Benzonatate (Benzonatate 100 Mg Capsule) 100 mg PO TID PRN PRN Reason: Cough Stop: 10/19/22 22:26 Budesonide (Budesonide 0.5 Mg/2 Ml Vial (Pulmicort)) 0.5 mg NEB BIDR [facility] Stop: 10/17/22 18:59 Last Admin: 09/20/22 07:33 Dose: 0.5 mg Calcium/Vitamin D (Calcium 600mg + Vit D 400 Iu Tab) 1 tab PO DAILY [facility] Stop: 10/17/22 08:59 Last Admin: 09/20/22 09:06 Dose: 1 tab Cyanocobalamin (Cyanocobalamin (B-12) 500 Mcg Tablet) 1,000 mcg PO DAILY [facility] Stop: 10/17/22 08:59 Last Admin: 09/20/22 09:06 Dose: 1,000 mcg Donepezil HCl (Donepezil Hcl 10 Mg Tab) 10 mg PO DAILY [facility] Stop: 10/17/22 08:59 Last Admin: 09/20/22 09:06 Dose: 10 mg Doxycycline Hyclate (Doxycycline Hyclate 100 Mg Cap) 100 mg PO BID@1100,2100 [facility] Stop: 09/23/22 10:59 Last Admin: 09/20/22 11:11 Dose: 100 mg Finasteride (Finasteride 5 Mg Tab) 5 mg PO DAILY [facility] Stop: 10/17/22 08:59 Last Admin: 09/20/22 09:06 Dose: 5 mg Formoterol Fumarate (Formoterol 20 Mcg/2 Ml Vial) 20 mcg NEB BID [facility] Stop: 10/17/22 11:29 Last Admin: 09/20/22 07:33 Dose: 20 mcg Gabapentin (Gabapentin 100 Mg Cap) 100 mg PO TID [facility] Stop: 10/16/22 21:34 Last Admin: 09/20/22 09:06 Dose: 100 mg Guaifenesin (Guaifenesin 600 Mg Tabcr) 600 mg PO HS [facility] Stop: 10/17/22 20:59 Last Admin: 09/19/22 20:25 Dose: 600 mg Ceftriaxone Sodium 2,000 mg/ (Dextrose) 70 mls @ 100 mls/hr IV Q24H [facility]; Protocol Stop: 09/24/22 08:59 Last Infusion: 09/20/22 11:09 Dose: Infused Pantoprazole Sodium 40 mg/ (Syringe) 10 mls @ 5 mls/min IV BID [facility] Stop: 10/19/22 20:59 Last Admin: 09/20/22 09:12 Dose: Not Given Losartan Potassium (Losartan Potassium 25 Mg Tab) 25 mg PO QAM [facility] Stop: 10/17/22 08:59 Last Admin: 09/20/22 09:05 Dose: 25 mg Magnesium Hydroxide (Magnesium Hydroxide Susp 30 Ml Udc) 30 ml PO Q6H PRN PRN Reason: Constipation Stop: 10/19/22 08:00 Mirtazapine (Mirtazapine Tab 15 Mg Tab) 15 mg PO HS [facility] Stop: 10/16/22 21:34 Last Admin: 09/19/22 20:26 Dose: 15 mg Miscellaneous (Vesicare: Order Awaiting Action) 1 each N/A QS [facility] Stop: 10/17/22 00:00 Last Admin: 09/19/22 09:13 Dose: Not Given Nitroglycerin (Nitroglycerin Sl 0.4 Mg/Tab Tab) 0.4 mg SL UD PRN PRN Reason: Chest Pain Stop: 10/16/22 21:34 Polyethylene Glycol (Polyethylene (Miralax) 17 Gm Pack) 17 gm PO DAILY PRN PRN Reason: Constipation Stop: 10/16/22 21:34 Polyethylene Glycol (Polyethylene (Miralax) 17 Gm Pack) 17 gm PO HS [facility] Stop: 10/17/22 20:59 Last Admin: 09/19/22 20:23 Dose: 17 gm Polyethylene Glycol (Polyethylene (Miralax) 17 Gm Pack) 17 gm PO DAILY [facility] Stop: 10/19/22 08:59 Last Admin: 09/20/22 09:05 Dose: 17 gm Potassium Citrate (Potassium Citrate 10 Meq Tab) 10 meq PO TID [facility] Stop: 10/17/22 08:59 Last Admin: 09/20/22 09:06 Dose: 10 meq Prednisone (Prednisone 20 Mg Tab) 40 mg PO DAILY [facility] Stop: 09/21/22 08:59 Last Admin: 09/20/22 09:06 Dose: 40 mg Psyllium Hydrophilic Mucilloid (Psyllium Or Guar Gum Fiber Powder Packet) 1 pkt PO HS [facility] Stop: 10/19/22 20:59 Last Admin: 09/19/22 20:22 Dose: 1 pkt Sodium Chloride (Sodium Chlor 7% 4 Ml Neb) 4 ml NEB BIDR [facility] Stop: 10/17/22 18:59 Last Admin: 09/20/22 07:33 Dose: 4 ml Tamsulosin HCl (Tamsulosin Hcl 0.4 Mg Cap) 0.4 mg PO HS [facility] Stop: 10/16/22 21:34 Last Admin: 09/19/22 20:26 Dose: 0.4 mg Tramadol HCl (Tramadol Hcl 50 Mg Tablet) 50 mg PO BID PRN PRN Reason: Pain Stop: 10/16/22 22:38 Last Admin: 09/18/22 22:52 Dose: 50 mg Vitamin D (Cholecalciferol 1,000 Units 25 Mcg Tab) 2,000 units PO DAILY [facility] Stop: 10/17/22 08:59 Last Admin: 09/20/22 09:06 Dose: 2,000 units
--- NOTE | 2022-09-20 15:50 | Discharge Summary ---
Discharge Summary Date of Service ADMIT: 09/16/2022 DISCHARGE: 09/20/2022 Notes For Next Care Provider Repeat chest chest xray in 4 weeks to ensure complete resolution of pneumonia. Medication Changes From Visit see list below Admission HPI Per Admitting Provider HISTORY OF PRESENT ILLNESS: This is an 82-year-old male with past medical history significant for chronic respiratory failure on home oxygen 3 L, obstructive sleep apnea on CPAP at bedtime, COPD, hypertension, GERD, vitamin B12 deficiency, BPH, overactive bladder, generalized osteoarthrosis, mild cognitive impairment, who lives with his , presents with weakness, falls and shortness of breath. The patient says that since 1 week, he is having cough and bringing out yellowish greenish phlegm, going on for last 1 week, getting progressively worse and was feeling short of breath and says he is falling frequently because of weakness. When he is falling , he in not able to get up, he has to take the help of his . That is the reason he was brought in here. Somewhat hard of hearing. Resting comfortably. Denies any headache, no dizziness, no blurred visions, no earache, having runny nose, no sore throat, no difficulty swallowing. Appetite is okay. No chest pain. No nausea, no vomiting, no abdominal pain. Normal bowel and bladder movements. No swelling in the legs, no rash. Admission Exam Per Admitting Provider PHYSICAL EXAMINATION: GENERAL: The patient is of moderate build, not in acute distress. VITAL SIGNS: Temperature 36.6, pulse 82, respiratory rate 19, blood pressure 120/66, oxygen 95% on 3 L. HEENT: Pupils equal, round and reactive to light. Oral mucosa moist. NECK: No JVD, no neck masses. CARDIOVASCULAR: S1 and S2 heard. Regular rate and rhythm. No murmur, no gallop. RESPIRATORY SYSTEM: Clear to auscultation bilaterally. No wheezing. Occasional mild bilateral rhonchi heard. ABDOMEN: Soft, bowel sounds present, nontender, no distention. CENTRAL NERVOUS SYSTEM: Cranial nerves II through XII are grossly intact, nonfocal. EXTREMITIES: No edema, no erythema. Principal Dx & Hospital Course #1 = Principal Diagnosis (1) Acute hypoxemic respiratory failure: (2) COPD exacerbation: (3) Pneumonia: Plan 82 yo M with chronic hypoxic respiratory failure 2/2 COPD on 3LPM oxygen at home and with h/o ZHANE on CPAP presents with shortness of breath and weakness. Workup revealed pneumonia and he was started on Rocephin, doxycycline and intravenous steroids. Nebulized bronchodilators were scheduled. CXR revealed pulmonary edema and he was started on Lasix twice daily. Hypertonic saline nebulizer and flutter valve were given for pulmonary toilet efforts. After a couple of days IV solumedrol was changed to oral prednisone once daily. He was continued on a short course of oral antibiotics at discharge. At the time of discharge, he was cleared by physical therapy to return home, and was mentating at his baseline. He was oxygenating well on his baseline 3 LPM supplementation and was sent home in stable condition. Discharge Exam PHYSICAL EXAMINATION: GENERAL: The patient is of moderate build, not in acute distress. VITAL SIGNS: stable HEENT: head NCAT Oral mucosa moist. NECK: No JVD, no neck masses. CARDIOVASCULAR: S1 and S2 heard. Regular rate and rhythm. No murmur, no gallop. RESPIRATORY SYSTEM: Clear to auscultation bilaterally. No wheezing. ABDOMEN: Soft, bowel sounds present, nontender, no distention. CENTRAL NERVOUS SYSTEM: Cranial nerves II through XII are grossly intact, no nfocal. EXTREMITIES: No edema, no erythema. Updated Medication List Medication Instructions Recorded Confirmed Type ascorbic acid (vitamin C) 500 mg 500 mg PO DAILY 06/14/19 09/16/22 History tablet losartan 25 mg tablet 25 mg PO QAM 06/14/19 09/16/22 History diclofenac sodium 1 % topical gel 2 gm topical QID PRN Pain 01/18/20 09/16/22 History omeprazole 20 mg capsule,delayed 20 mg PO DAILY 01/18/20 09/16/22 History release polyethylene glycol 3350 17 17 gm PO HS 01/18/20 09/16/22 History gram/dose oral powder (Miralax) potassium citrate 10 mEq (1,080 10 meq PO TID 01/18/20 09/16/22 History mg) tablet,extended release wheat dextrin 5 gram/7.4 gram oral 4 gm PO HS 01/18/20 09/16/22 History powder (Benefiber Healthy Shape) umeclidinium 62.5 mcg/actuation 1 inh inhalation DAILY #30 ea 01/14/22 09/16/22 Rx blister powder for inhalation (Incruse Ellipta) finasteride 5 mg tablet 5 mg PO DAILY #90 tabs 06/10/22 09/16/22 Rx amlodipine 5 mg tablet 5 mg PO DAILY 06/21/22 09/16/22 History tamsulosin 0.4 mg capsule 0.4 mg PO HS 06/21/22 09/16/22 History calcium carbonate 600 mg-vitamin 1 cap PO DAILY 06/30/22 09/16/22 History D3 5 mcg (200 unit) capsule (Calcium 600 + D(3)) cyanocobalamin (vitamin B-12) 1,000 mcg PO DAILY 06/30/22 09/16/22 History 1,000 mcg tablet (Vitamin B-12) donepezil 10 mg tablet 10 mg PO HS 06/30/22 09/16/22 History fluoride (sodium) 1.1 % dental 1 applic PO DAILY 06/30/22 09/16/22 History paste mirtazapine 15 mg tablet 15 mg PO HS 06/30/22 09/16/22 History Portable Oxygen #1 ea 07/15/22 09/16/22 Rx gabapentin 100 mg capsule 100 mg PO TID 07/25/22 09/16/22 History solifenacin 5 mg tablet (Vesicare) 5 mg PO DAILY #30 tabs 09/08/22 09/16/22 Rx cholecalciferol (vitamin D3) 50 50 mcg PO DAILY 09/16/22 09/16/22 History mcg (2,000 unit) tablet (Vitamin D3) guaifenesin 600 mg tablet, 600 mg PO HS 09/16/22 09/16/22 History extended release 12 hr (Mucinex) tramadol 50 mg tablet 50 mg PO BID PRN Pain 09/16/22 09/16/22 History cefdinir 300 mg capsule 300 mg PO BID #6 caps 09/20/22 Rx doxycycline hyclate 100 mg capsule 100 mg PO BID@1100,2100 #6 caps 09/20/22 Rx Hospital Stay Data Consultations 09/16/22 18:55 ED Decision to Admit Stat Diagnostic Imagining Performed 09/19/22 01:49 CT abd pelvis IV con only Urgent Pending Results Patient Have Any Pending Studies at Discharge: No Discharge Instructions Given to Patient (Per Discharging Provider) Please take all medications as instructed on discharge list below. You are being given oral antibiotics to complete your antibiotic course for pneumonia. It is recommended that you have a repeat chest x-ray in 4 weeks after completing treatment to ensure complete resolution of pneumonia. Your primary care doctor may order this for you. Please follow-up with your primary care provider within 1 week of discharge from the hospital stay. This is to check labs as needed, order your imaging studies and check on your status after returning home. It was a pleasure taking care of you! Please call if you have any questions or problems. You can reach a [facility] hospitalist on duty at [facility] 24 hours a day by calling [phone]. Take care of yourself. Meg Soriano, [facility] Delta Medical Centerist Total Time Total Time Spent Total Time Spent (In Minutes): 60
== END 2022-09-20 17:20 | disposition home or self-care (01) | DRG 193 ==
LOC: ED 15:57 → SUATTDRO 20:26 → 2W 20:26
DX: K21.9 Gastro-esophageal reflux disease without esophagitis; J44.0 Chronic obstructive pulmonary disease with (acute) lower respiratory infection; J96.21 Acute and chronic respiratory failure with hypoxia; J18.9 Pneumonia, unspecified organism; N40.1 Benign prostatic hyperplasia with lower urinary tract symptoms; J96.10 Chronic respiratory failure, unspecified whether with hypoxia or hypercapnia; Z87.891 Personal history of nicotine dependence; I10 Essential (primary) hypertension; Z86.16 Personal history of COVID-19; K59.00 Constipation, unspecified; J44.1 Chronic obstructive pulmonary disease with (acute) exacerbation; Z99.81 Dependence on supplemental oxygen; E53.8 Deficiency of other specified B group vitamins

== ENCOUNTER 2024-11-25 09:58 | Inpatient (IN) ==
--- NOTE | 2024-11-25 10:04 | Emergency Department Note ---
Impression & Plan Acute hypoxemic respiratory failure, COPD (chronic obstructive pulmonary disease), Multiple rib fractures, Influenza A ED Provider Note NAME: BRENDA FRIED AGE: 84 SEX: M : 1940 ARRIVES VIA: Ambulance INFORMANT: Patient, ED PROVIDER(S): Gilberto Whitlock MD CHIEF COMPLAINT: Fall, weakness MEDICAL DECISION MAKING: Patient presents with the above. IV was established and blood work was obtained. Patient also with associated productive cough. Patient was ordered chest x-ray rib series in addition to CT abdomen pelvis. Patient was ordered IV fluids DuoNebs procalcitonin empiric doxycycline and methylprednisolone. Patient was also ordered IV Ofirmev. Patient upon reassessment was feeling improved with regard to his breathing. The patient does have a slight crease in his baseline oxygen and currently at 5 L nasal cannula. The patient's blood work shows a normal white count hemoglobin and platelet count. The patient's kidney function is unremarkable. Procalcitonin not elevated. Patient is positive for influenza A. Patient did receive Tamiflu and IV fluids were ordered. The patient CT abdomen pelvis was negative. The patient's chest x-ray did show 3 rib fractures. Patient was ordered a lidocaine patch. No evidence of pneumothorax. Patient patient's at bedside were informed of the findings. I did speak with the hospital service Rock Mcrae PA-C and Dr. Burdick and the patient was admitted to the medicine service. Critical Care: I have personally spent 45 minutes of critical care time in direct management of this patient. This includes bedside care, interpretation of diagnostic studies, and testing, discussion with consultants, patient, and family members, and other require inpatient management activities. This 45 minutes is in excess of all separately billable procedures. Discussion w/ other healthcare providers: Nerissa Mcrae PA-C and Dr. Burdick Prior /Outside records reviewed: I reviewed part of a discharge summary from Dr. Soriano. No prior history of chronic respiratory failure on 3 L home oxygen ZHANE CPAP COPD hypertension GERD vitamin B12 deficiency BPH osteoarthrosis mild cognitive impairment presented for weakness falls and shortness of breath at that time. Differential diagnosis: Fracture, dislocation, contusion, strain, sprain, ICH, hemothorax, intra- abdominal injury, anemia among other causes were considered. Diagnostics, as interpreted by me: ECG: None Cardiac monitoring: An order was placed for continuous cardiac monitoring. The monitor shows a rate of with rhythm. Patient was placed on pulse oximetry Medical decision rules: None Imaging studies: I informally interpreted the patient's chest x-ray and rib series shows left- sided rib fractures with formal report to follow. HPI: Patient presents due to concern for weakness and fatigue with associated upper respiratory symptoms been ongoing about a month in duration. Patient reported has had 2 falls in last 24 hours with complaint of left-sided rib and abdominal pain. Patient was reportedly hypoxic in routes on his baseline 3 L sat 87%. Patient states that he has had productive cough with discolored sputum which is atypical for him. No history of COPD on chronic 3 L states that he quit smoking 1964. Patient does believe that his falls are secondary to weakness and fatigue. Patient states he did fall to oriented to his left side. Patient denies any head strike or LOC. Patient does not take any blood thinning medications. No leg swelling or calf pain. Patient does complain of left-sided rib pain. Patient denies any head or neck pain. No extremity pain. PAST MEDICAL HISTORY: See Below PAST SURGICAL HISTORY: See Below SOCIAL HISTORY: See Below HOME MEDICATIONS: See Below ALLERGIES: See Below VITALS: See Below PHYSICAL EXAMINATION: GENERAL: NAD, non-toxic. Wearing glasses, nasal cannula in place. EYE EXAM: Normal conjunctiva. PERRL, no anisocoria and EOM's grossly intact w/o pain. Head: Normocephalic atraumatic. OROPHARYNX: Moist mucus membranes, grossly normal dentition. NECK: Trachea midline, no stridor. Supple, no nuchal rigidity, no adenopathy, non-tender. No signs of meningismus. FROM of the neck with good chin to chest and neck extension. No midline C-spine TTP. Chest: Reproducible left lower mid axillary rib pain without overlying skin changes or crepitus. No obvious flail chest. LUNGS: Clear to auscultation. Normal chest wall mechanics. HEART: NSR, no MRG. ABDOMEN: Abdomen soft, left-sided upper abdominal pain without lower abdominal pain, no overlying bruising, no masses, no rebound or guarding. BACK: No CVA TTP. SKIN: No rashes and no bruising. UPPER EXTREMITIES: Upper extremities are grossly normal. No TTP or deformity. LOWER EXTREMITIES: Grossly normal, no edema. No TTP or deformity. NEURO EXAM: A&O x3, cranial nerves II-XII grossly intact, normal speech, moves all 4 extremities. Past Med/Surg History Problem List (Updated 11/26/24 @ 09:26 by Gilberto Whitlock MD) Influenza A (Acute) Multiple rib fractures (Acute) COPD (chronic obstructive pulmonary disease) (Acute) Acute hypoxemic respiratory failure (Acute) Influenza A Ground glass opacity present on imaging of lung Chest x-ray abnormality COPD exacerbation Generalized weakness (Acute) Bilateral interstitial pneumonia (Acute) Falls (Acute) BPH with obstruction/lower urinary tract symptoms Multiple pulmonary nodules determined by computed tomography of lung Acute hypoxemic respiratory failure Hypoxia (Acute) Closed rib fracture (Acute) Mild cognitive impairment Rib fractures (Acute) Cerumen impaction Encounter for pre-operative examination Back pain (Chronic) COPD (chronic obstructive pulmonary disease) (Chronic) Kidney stones (Chronic) H/O diverticulitis of colon (Chronic) Osteoarthritis (Chronic) Osteoporosis (Chronic) GERD (gastroesophageal reflux disease) (Chronic) 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 INH USE - LONG TIME Sleep apnea CPAP Surgical History History of shoulder surgery Left History of foot surgery right foot - big toe - 10/14/2002 History of cholecystectomy History of herniorrhaphy History of surgery on wrist LEFT History of ankle surgery TITANIUM TO LEFT ANKLE History of lithotripsy History of colonoscopy Family History Mother Cancer Father , Spontaneous rupture of kidney Sudden Other No family history of allergies Social History Smoking Status: Former smoker Tobacco Type: Cigarettes Age Started Using Tobacco: 17; Age Quit Using Tobacco: 49; packs per day: 1; Second Hand Exposure: No; Do You Dip or Chew Tobacco: No; Hx Alcohol Use: No Hx Substance Use: No Preferred Language: Nepali Communication Ability: Effective Scrap Breaker Required: No Beliefs That Will Affect Care: None marital status: Current Living Situation: Spouse Current Living Situation Comment: two story house with , grandson/gf and great grand child current occupational status: retired Feels Safe at Home: Yes Assistive Devices: Cane, Glasses, Oxygen - Continuous and Walker Allergies Allergies Allergy/AdvReac Type Severity Reaction Status Date / Time No Known Drug Allergies Allergy NKDA Verified 04/12/24 16:29 Home Meds Home Medications Medication Instructions Recorded Confirmed ascorbic acid (vitamin C) 500 mg 500 mg PO DAILY 06/14/19 11/25/24 tablet losartan 25 mg tablet 25 mg PO QAM 06/14/19 11/25/24 diclofenac sodium 1 % topical gel 2 gm topical QID PRN Pain 01/18/20 11/25/24 omeprazole 20 mg capsule,delayed 20 mg PO DAILY 01/18/20 11/25/24 release polyethylene glycol 3350 17 17 gm PO HS 01/18/20 11/25/24 gram/dose oral powder (Miralax) potassium citrate 10 mEq (1,080 10 meq PO TID 01/18/20 11/25/24 mg) tablet,extended release wheat dextrin 5 gram/7.4 gram oral 4 gm PO HS 01/18/20 11/25/24 powder (Benefiber Healthy Shape) amlodipine 5 mg tablet 5 mg PO DAILY 06/21/22 11/25/24 calcium 600 mg (as 1 cap PO DAILY 06/30/22 11/25/24 carbonate)-vitamin D3 5 mcg (200 unit) capsule (Calcium 600 + D(3)) cyanocobalamin (vitamin B-12) 1,000 mcg PO DAILY 06/30/22 11/25/24 1,000 mcg tablet (Vitamin B-12) donepezil 10 mg tablet 10 mg PO HS 06/30/22 11/25/24 fluoride (sodium) 1.1 % dental 1 applic PO DAILY 06/30/22 11/25/24 paste gabapentin 100 mg capsule 100 mg PO TID 07/25/22 11/25/24 cholecalciferol (vitamin D3) 50 50 mcg PO DAILY 09/16/22 11/25/24 mcg (2,000 unit) tablet (Vitamin D3) guaifenesin 600 mg tablet, 600 mg PO HS 09/16/22 11/25/24 extended release 12 hr (Mucinex) tramadol 50 mg tablet 50 mg PO BID PRN Pain 09/16/22 11/25/24 mirtazapine 7.5 mg tablet 7.5 mg PO HS 11/25/24 11/25/24 Previous Rx's Medication Instructions Recorded Portable Oxygen #1 ea 07/15/22 CPAP Supplies #1 ea 11/23/23 finasteride 5 mg tablet 5 mg PO DAILY #90 tabs 05/17/24 tamsulosin 0.4 mg capsule 0.4 mg PO DAILY #90 caps 05/17/24 fluticasone fur. 100 mcg-umeclid 1 inh inhalation DAILY #3 Inhalers 10/27/24 62.5 mcg-vilant 25 mcg inhalat.powder (Trelegy Ellipta) Results & Data (ED) Vital Signs Vital Signs - 24 hr 11/25/24 10:09 11/25/24 10:26 11/25/24 10:36 Temperature 37 C Temperature Source Oral Pulse Rate 67 71 63 Pulse Rate from SpO2 Sensor 63 Respiratory Rate 22 17 Respiratory Effort / Characteristics Non-Labored Spontaneous Respiratory Depth Normal Respiratory Pattern Regular Blood Pressure 126/73 120/62 Blood Pressure Mean 90 81 Pulse Oximetry 87 L 92 Oxygen Delivery Method Nasal Cannula Oxygen Flow Rate 3 5 Sepsis Recent Fever Within 48 Hours No Sepsis New/Unexplained Change in Mental Status No Sepsis Action Taken by Nursing No Action Required Fraction of Inspired Oxygen - Titration Pulse Oximetry Post Tiitration 11/25/24 10:56 11/25/24 10:57 11/25/24 11:00 Temperature Temperature Source Pulse Rate 60 Pulse Rate from SpO2 Sensor 64 Respiratory Rate 18 Respiratory Effort / Characteristics Respiratory Depth Respiratory Pattern Blood Pressure 124/57 L Blood Pressure Mean 88 Pulse Oximetry 87 L 94 Oxygen Delivery Method Nasal Cannula Nasal Cannula Oxygen Flow Rate 3 5 Sepsis Recent Fever Within 48 Hours Sepsis New/Unexplained Change in Mental Status Sepsis Action Taken by Nursing Fraction of Inspired Oxygen - Titration 5 Pulse Oximetry Post Tiitration 91 11/25/24 11:06 11/25/24 11:27 11/25/24 11:30 Temperature Temperature Source Pulse Rate 65 64 Pulse Rate from SpO2 Sensor 65 64 Respiratory Rate 18 19 Respiratory Effort / Characteristics Respiratory Depth Respiratory Pattern Blood Pressure 113/64 Blood Pressure Mean 82 Pulse Oximetry 94 98 Oxygen Delivery Method Nasal Cannula Nasal Cannula Oxygen Flow Rate 5 5 Sepsis Recent Fever Within 48 Hours Sepsis New/Unexplained Change in Mental Status Sepsis Action Taken by Nursing Fraction of Inspired Oxygen - Titration Pulse Oximetry Post Tiitration 11/25/24 13:03 11/25/24 13:12 11/25/24 13:18 Temperature Temperature Source Pulse Rate 78 74 Pulse Rate from SpO2 Sensor 77 73 Respiratory Rate 15 19 Respiratory Effort / Characteristics Respiratory Depth Respiratory Pattern Blood Pressure 106/56 L Blood Pressure Mean 83 Pulse Oximetry 87 L 88 L Oxygen Delivery Method Nasal Cannula Nasal Cannula Oxygen Flow Rate 4 4 Sepsis Recent Fever Within 48 Hours Sepsis New/Unexplained Change in Mental Status Sepsis Action Taken by Nursing Fraction of Inspired Oxygen - Titration Pulse Oximetry Post Tiitration 11/25/24 13:18 11/25/24 13:27 11/25/24 14:00 Temperature Temperature Source Pulse Rate 62 Pulse Rate from SpO2 Sensor 57 L Respiratory Rate 17 Respiratory Effort / Characteristics Respiratory Depth Respiratory Pattern Blood Pressure 106/56 L 112/58 L Blood Pressure Mean 83 81 Pulse Oximetry 90 Oxygen Delivery Method Oxygen Flow Rate Sepsis Recent Fever Within 48 Hours Sepsis New/Unexplained Change in Mental Status Sepsis Action Taken by Nursing Fraction of Inspired Oxygen - Titration Pulse Oximetry Post Tiitration 11/25/24 14:00 11/25/24 14:00 11/25/24 14:00 Temperature Temperature Source Pulse Rate Pulse Rate from SpO2 Sensor Respiratory Rate Respiratory Effort / Characteristics Respiratory Depth Respiratory Pattern Blood Pressure 112/58 L 112/58 L 112/58 L Blood Pressure Mean 81 81 81 Pulse Oximetry Oxygen Delivery Method Oxygen Flow Rate Sepsis Recent Fever Within 48 Hours Sepsis New/Unexplained Change in Mental Status Sepsis Action Taken by Nursing Fraction of Inspired Oxygen - Titration Pulse Oximetry Post Tiitration 11/25/24 14:00 11/25/24 14:30 11/25/24 14:30 Temperature Temperature Source Pulse Rate 60 Pulse Rate from SpO2 Sensor 61 Respiratory Rate 18 Respiratory Effort / Characteristics Respiratory Depth Respiratory Pattern Blood Pressure 113/63 113/63 Blood Pressure Mean 91 91 Pulse Oximetry 92 Oxygen Delivery Method Oxygen Flow Rate Sepsis Recent Fever Within 48 Hours Sepsis New/Unexplained Change in Mental Status Sepsis Action Taken by Nursing Fraction of Inspired Oxygen - Titration Pulse Oximetry Post Tiitration 11/25/24 14:30 11/25/24 14:30 11/25/24 14:45 Temperature Temperature Source Pulse Rate 55 L Pulse Rate from SpO2 Sensor 63 Respiratory Rate 16 Respiratory Effort / Characteristics Respiratory Depth Respiratory Pattern Blood Pressure 113/63 Blood Pressure Mean 91 Pulse Oximetry 89 L Oxygen Delivery Method Oxygen Flow Rate Sepsis Recent Fever Within 48 Hours Sepsis New/Unexplained Change in Mental Status Sepsis Action Taken by Nursing Fraction of Inspired Oxygen - Titration Pulse Oximetry Post Tiitration 11/25/24 15:00 Temperature Temperature Source Pulse Rate Pulse Rate from SpO2 Sensor Respiratory Rate Respiratory Effort / Characteristics Respiratory Depth Respiratory Pattern Blood Pressure 105/59 L Blood Pressure Mean 81 Pulse Oximetry Oxygen Delivery Method Oxygen Flow Rate Sepsis Recent Fever Within 48 Hours Sepsis New/Unexplained Change in Mental Status Sepsis Action Taken by Nursing Fraction of Inspired Oxygen - Titration Pulse Oximetry Post Tiitration Home Medications Current Medication List: was personally reviewed by me Laboratory Data Attestation: I reviewed the patient's lab results. 11/26/24 05:29 11/26/24 05:29 Lab Results 11/25/24 11/25/24 11/25/24 Range/Units 10:30 10:36 13:03 WBC 7.72 (4.8-10.8) K/ul RBC 4.58 L (4.70-6.10) M/uL Hgb 15.0 (14.0-18.0) g/dl POC Hgb 14.6 (14.0-18.0) g/dl Hct 43.5 (42.0-52.0) % POC Hct 43 (42-52) % MCV 95.0 (80.0-100.0) fL MCH 32.8 (25.0-34.0) pg MCHC 34.5 (32.0-36.0) g/dL RDW Std Deviation 49.5 H (36.4-46.3) fL RDW Coeff of [place] 14.2 (11.5-14.5) % Plt Count 144 (130-400) K/uL MPV 10.9 (9.4-12.4) fL Immature Gran % (Auto) 0.1 % Neut % (Auto) 79.8 % Lymph % (Auto) 7.4 % [place] % (Auto) 12.4 % Eos % (Auto) 0.0 % Baso % (Auto) 0.3 % Neut # (Auto) 6.16 (1.40-6.50) K/uL Lymph # (Auto) 0.57 L (1.20-3.40) K/uL [place] # (Auto) 0.96 H (0.11-0.59) K/uL Eos # (Auto) 0.00 (0.00-0.50) K/uL Baso # (Auto) 0.02 (0.00-0.20) K/uL Immature Gran # (Auto) 0.01 (0.01-0.20) K/uL VBG pH 7.43 H (7.36-7.41) VBG pCO2 39 (38-50) mmHg VBG pO2 49 mmHg VBG HCO3 26 mmol/L VBG O2 Saturation 82.4 % VBG Base Excess 1.5 mEq/L POC Sodium 140 (135-144) mmol/L Sodium 139 (136-145) mmol/L POC Potassium 4.2 (3.3-5.0) mmol/L Potassium 4.2 (3.5-5.1) mmol/L POC Chloride 105 (101-112) mmol/L Chloride 106 (98-107) mmol/L Carbon Dioxide 27 (21-32) mmol/L POC Total CO2 23 L (24-31) mmol/L Anion Gap 6 (3-11) POC Anion Gap 17.0 (16-25) mmol/L POC BUN 19 H (7-18) mg/dl BUN 19 (6-23) mg/dl Creatinine 1.20 (0.6-1.4) mg/dl POC Creatinine 1.3 (0.6-1.3) mg/dl Est Cr Clr Drug Dosing 50.7 ml/min eGFR 59.26 BUN/Creatinine Ratio 15.8 (10-20) Glucose 90 (70-99(Fasting)) mg/dl POC Glucose (other) 91 (70-99) mg/dl Calcium 8.9 (8.6-10.3) mg/dl POC Ioniz Calcium Pallavi 1.15 (1.12-1.32) mmol/l Total Bilirubin 0.9 (0.2-1.0) mg/dl AST 29 (13-39) U/L ALT 14 (7-52) U/L Alkaline Phosphatase 60 (34-104) U/L Total Protein 6.6 (6.0-8.3) gm/dl Albumin 3.6 (3.4-5.0) gm/dl Globulin 3.0 (2.5-4.0) gm/dl Albumin/Globulin Ratio 1.2 (0.9-2) Procalcitonin 0.34 (0-0.5) ng/ml TSH 1.588 (0.300-4.500) uIu/ml Urine Color Yellow Urine Appearance Clear (Clear) Urine pH 5.5 (4.5-7.5) Ur Specific [place] > 1.045 H (1.000-1.030) Urine Protein 1+ H (Negative) Urine Glucose (UA) Negative (Negative) Urine Ketones 1+ H (Negative) Urine Blood Negative (Negative) Urine Nitrite Negative (Negative) Urine Bilirubin Negative (Negative) Urine Urobilinogen Negative (Negative) Ur Leukocyte Esterase Negative (Negative) Urine WBC (Auto) 0-5 (0-5) /hpf Urine RBC (Auto) 3-5 H (0-2) /hpf U Hyaline Cast (Auto) 0-2 (0-2) /lpf U Epithel Cells (Auto) 0-2 (0-2) /hpf Urine Bacteria (Auto) None Seen (None Seen) Nasal Influ A H1 2008 PCR DETECTED A (NotDetected) Adenovirus (PCR) Not Detected (NotDetected) B. pertussis DNA (PCR) Not Detected (NotDetected) B.parapertussis DNA PCR Not Detected (NotDetected) C. pneumoniae DNA (PCR) Not Detected (NotDetected) Coronavirus OC43 (PCR) Not Detected (NotDetected) Coronavirus HKU1 (PCR) Not Detected (NotDetected) Coronavirus 229E (PCR) Not Detected (NotDetected) SARS-CoV-2 (PCR) Not Detected (NotDetected) Coronavirus NL63 (PCR) Not Detected (NotDetected) Human Metapneumovir PCR Not Detected (NotDetected) Influenza Type B (PCR) Not Detected (NotDetected) M. pneumoniae (PCR) Not Detected (NotDetected) Parainfluenza 1 (PCR) Not Detected (NotDetected) Parainfluenza 2 (PCR) Not Detected (NotDetected) Parainfluenza 3 (PCR) Not Detected (NotDetected) Parainfluenza 4 (PCR) Not Detected (NotDetected) RSV (PCR) Not Detected (NotDetected) Entero/Rhino (PCR) Not Detected (NotDetected) Administered Medications Albuterol (Albut/Ipratrop 3mg/0.5mg Neb 3 Ml Vial) 3 ml NEB Q4R SHE; Protocol Stop: 12/25/24 18:59 Last Admin: 11/26/24 07:09 Dose: 3 ml Documented By: Admin: 11/26/24 03:16 Dose: 3 ml Documented By: Admin: 11/25/24 23:19 Dose: 3 ml Documented By: Admin: 11/25/24 19:58 Dose: 3 ml Documented By: JUDY Donepezil HCl (Donepezil Hcl 10 Mg Tab) 10 mg PO HS SHE Stop: 12/25/24 20:59 Last Admin: 11/25/24 22:26 Dose: 10 mg Documented By: JUDY Gabapentin (Gabapentin 100 Mg Cap) 100 mg PO TID SHE Stop: 12/25/24 20:59 Last Admin: 11/25/24 22:26 Dose: 100 mg Documented By: JUDY Guaifenesin (Guaifenesin 600 Mg Tabcr) 600 mg PO Q12 SHE Stop: 12/25/24 20:59 Last Admin: 11/25/24 22:26 Dose: 600 mg Documented By: JUDY Methylprednisolone 40 mg/ (Syringe) 0.64 mls @ 1.5 mls/min IV Q8H SHE Stop: 12/25/24 18:59 Last Admin: 11/26/24 03:53 Dose: 1.5 mls/min Documented By: Admin: 11/25/24 19:58 Dose: 1.5 mls/min Documented By: JUDY Lidocaine (Lidocaine 5% 1 Patch) 1 patch TD QAM SHE Stop: 12/25/24 18:59 Last Admin: 11/26/24 03:24 Dose: Not Given Documented By: JUDY Mirtazapine (Mirtazapine Tab 15 Mg Tab) 7.5 mg PO HS SHE Stop: 12/25/24 20:59 Last Admin: 11/25/24 22:26 Dose: 7.5 mg Documented By: JUDY Miscellaneous (Remove Lidoderm Patch) 1 each N/A DAILY@2100 SHE Stop: 12/25/24 00:00 Last Admin: 11/26/24 04:35 Dose: Not Given Documented By: Admin: 11/26/24 03:24 Dose: 1 each Documented By: JUDY Oseltamivir Phosphate (Oseltamivir Phosphate Susp 30 Mg/5 Ml Udp) 30 mg PO BID SHE Stop: 11/30/24 20:59 Last Admin: 11/25/24 22:27 Dose: 30 mg Documented By: JUDY Polyethylene Glycol (Polyethylene (Miralax) 17 Gm Pack) 17 gm PO HS SHE Stop: 12/25/24 20:59 Last Admin: 11/25/24 22: Dose: 17 gm Documented By: JUDY Potassium Citrate (Potassium Citrate 10 Meq Tab) 10 meq PO TID HSE Stop: 12/25/24 20:59 Last Admin: 11/25/24 22:25 Dose: 10 meq Documented By: JUDY Discontinued Medications Albuterol (Albut/Ipratrop 3mg/0.5mg Neb 3 Ml Vial) 6 ml INH NOW STA Stop: 11/25/24 10:27 Last Admin: 11/25/24 11:14 Dose: 6 ml Documented By: HAYLEY Benzonatate (Benzonatate 100 Mg Capsule) 100 mg PO NOW ONE Stop: 11/25/24 13:52 Last Admin: 11/25/24 14:36 Dose: 100 mg Documented By: HAYLEY Doxycycline Hyclate (Doxycycline Hyclate 100 Mg Cap) 100 mg PO NOW STA Stop: 11/25/24 10:33 Last Admin: 11/25/24 11:15 Dose: 100 mg Documented By: HAYLEY Acetaminophen (Ofirmev) 1,000 mg in 100 mls @ 400 mls/hr IV NOW STA Stop: 11/25/24 10:40 Last Infusion: 11/25/24 18:51 Dose: Infused Documented By: Admin: 11/25/24 11:14 Dose: 400 mls/hr Documented By: HAYLEY Sodium Chloride (Nss) 1,000 mls @ 999 mls/hr IV .Q1H1M ONE Stop: 11/25/24 14:50 Last Infusion: 11/25/24 18:52 Dose: Infused Documented By: Admin: 11/25/24 14:35 Dose: 999 mls/hr Documented By: HAYLEY Ioversol (Optiray 320 100ml) 94 ml IV ONCE ONE Stop: 11/25/24 10:46 Last Admin: 11/25/24 10:45 Dose: 94 ml Documented By: ИВАН Lidocaine (Lidocaine 5% 1 Patch) 1 patch TD NOW STA Stop: 11/25/24 13:52 Last Admin: 11/25/24 14:36 Dose: 1 patch Documented By: HAYLEY Methylprednisolone (Methylprednisolone 125 Mg/2 Ml Vial) 125 mg IV NOW STA Stop: 11/25/24 10:27 Last Admin: 11/25/24 11:14 Dose: 125 mg Documented By: HAYLEY Oseltamivir Phosphate (Oseltamivir Phosphate 75 Mg Cap) 75 mg PO NOW STA Stop: 11/25/24 12:44 Last Admin: 11/25/24 13:02 Dose: 75 mg Documented By: HAYLEY Imaging Data Radiologist's Impression: Abdomen/Pelvis CT 11/25/24 10:[address] WITH IV CONTRAST CT DOSE: 1258.96 mGy.cm HISTORY: L sided ab pain, falls TECHNIQUE: Multiaxial CT images of the abdomen and pelvis were performed following the IV administration of 94 cc of Optiray, sagittal and coronal reconstructions were done. A dose lowering technique was utilized adhering to the principles of ALARA. COMPARISON STUDY: 09/19/2022 FINDINGS: Lung bases demonstrate minor left basilar discoid atelectasis. The solid organs are unremarkable with regard to trauma. There is hepatic steatosis. There is right nephrolithiasis. No hydronephrosis. The gallbladder is absent. The bile ducts are nondilated. There is no pancreatic, splenic, or adrenal lesion is depicted. There is no aneurysmal dilatation of the aorta. There is mural thrombus infrarenally. There is no periaortic adenopathy. There is no bowel obstruction or free air. There is no ascites. There is no evidence of colitis or diverticulitis. In the pelvis, numerous sigmoid diverticula are present without inflammatory change. The appendix is normal. There is no fluid in the cul-de-sac. Unopacified urinary bladder is incompletely distended. Prostatic calcifications are noted. The bone windows demonstrate no acute injuries. IMPRESSION: No acute findings in the abdomen and pelvis. ACT 112: Negative or not required by law. The above report was generated using voice recognition software. It may contain grammatical, syntax or spelling errors. Electronically signed by: Sendy Waggoner M.D. 11/25/2024 11:04 AM Ribs w/Chest X-Ray 11/25/24 10:25 XR ribs LT min 2V w [id number] CLINICAL HISTORY: Left rib pain following fall. COMPARISON: Chest radiograph December 17, 2022. Chest CT March 01, 2024. FINDINGS: There is no pneumothorax or pleural effusion. No airspace opacities are present. Cardiomediastinal silhouette is stable. Tortuosity of the descending thoracic aorta is again noted. There are acute nondisplaced fractures of the anterior left eighth, ninth and 10th ribs. IMPRESSION: Acute nondisplaced fractures of the anterior left eighth, ninth and 10th ribs. No pneumothorax. ACT 112: Negative or not required by law. Electronically signed by: William Gaona M.D. 11/25/2024 12:35 PM Discharge Plan Visit Data Chief Complaint: Weakness Stated Complaint: WEAKNESS, FALLS ED Provider: Gilberto Whitlock Discharge Problem: Acute hypoxemic respiratory failure, COPD (chronic obstructive pulmonary disease), Multiple rib fractures, Influenza A Patient Disposition: Admitted As Inpatient Discharge Instructions Interventions: ED Discharge Assessment Last Done: 11/25/24 18:41 Discharge Problem: COPD (chronic obstructive pulmonary disease) Qualifiers: COPD type: unspecified COPD Qualified Code(s): J44.9 - Chronic obstructive pulmonary disease, unspecified Multiple rib fractures Qualifiers: Encounter type: initial encounter Fracture type: closed Laterality: left Q ualified Code(s): S22.42XA - Multiple fractures of ribs, left side, initial encounter for closed fracture
[2024-11-25 10:45] LABS: Base Excess VBG 1.5 mEq/L; HCO3 VBG 26 mmol/L; Oxygen Saturation VBG 82.4 %; PCO2 VBG 39 mmHg (38-50); PO2 VBG 49 mmHg; pH VBG 7.43 (7.36-7.41)
[2024-11-25] MEDS: OPTIRAY 320 100ml IV ONE (10:45)
[2024-11-25 10:48] LABS: iSTAT Creatinine 1.3 mg/dl (0.6-1.3); iSTAT Hemoglobin 14.6 g/dl (14.0-18.0); iSTAT Ionized Calcium 1.15 mmol/l (1.12-1.32); iSTAT Potassium 4.2 mmol/L (3.3-5.0)
[2024-11-25 10:50] LABS: Basophils # (auto) 0.02 K/uL (0.00-0.20); Basophils % (auto) 0.3 %; Hematocrit (blood only) 43.5 % (42.0-52.0); Immature Granulocytes # (auto) 0.01 K/uL (0.01-0.20); Immature Granulocytes % (auto) 0.1 %; Lymphocytes # (auto) 0.57 K/uL (1.20-3.40); Lymphocytes % (auto) 7.4 %; Mean Corpuscular Hemoglobin 32.8 pg (25.0-34.0); Mean Corpuscular Hgb Conc 34.5 g/dL (32.0-36.0); Mean Platelet Volume 10.9 fL (9.4-12.4); Monocytes # (auto) 0.96 K/uL (0.11-0.59); Monocytes % (auto) 12.4 %; Neutrophils # (auto) 6.16 K/uL (1.40-6.50); Neutrophils % (auto) 79.8 %; Platelet Count 144 K/uL (130-400); RDW Coefficient of Variation 14.2 % (11.5-14.5); RDW Standard Deviation 49.5 fL (36.4-46.3); Red Blood Count 4.58 M/uL (4.70-6.10); White Blood Count 7.72 K/ul (4.8-10.8)
--- NOTE | 2024-11-25 11:05 | CT Scan Report ---
ABDOMEN AND PELVIS CT WITH IV CONTRAST CT DOSE: 1258.96 mGy.cm HISTORY: L sided ab pain, falls TECHNIQUE: Multiaxial CT images of the abdomen and pelvis were performed following the IV administrat ion of 94 cc of Optiray, sagittal and coronal reconstructions were done. A dose lowering technique w as utilized adhering to the principles of ALARA. COMPARISON STUDY: 09/19/2022 FINDINGS: Lung bases demonstrate minor left basilar discoid atelectasis. The solid organs are unremarkable with regard to trauma. There is hepatic steatosis. There is right n ephrolithiasis. No hydronephrosis. The gallbladder is absent. The bile ducts are nondilated. There is no pancreatic, splenic, or adrenal lesion is depicted. There is no aneurysmal dilatation of the aorta. There is mural thrombus infrarenally. There is no per iaortic adenopathy. There is no bowel obstruction or free air. There is no ascites. There is no evidence of colitis or di verticulitis. In the pelvis, numerous sigmoid diverticula are present without inflammatory change. The appendix is normal. There is no fluid in the cul-de-sac. Unopacified urinary bladder is incompletely distended. P rostatic calcifications are noted. The bone windows demonstrate no acute injuries. IMPRESSION: No acute findings in the abdomen and pelvis. ACT 112: Negative or not required by law. The above report was generated using voice recognition software. It may contain grammatical, syntax o r spelling errors. Electronically signed by: Sendy Waggoner M.D. 11/25/2024 11:04 AM
[2024-11-25] MEDS: ACETAMINOPHEN 1,000 MG/100 ML VIAL IV STA (11:14)
[2024-11-25] MEDS: ALBUT/IPRATROP 3MG/0.5MG NEB 3 ML VIAL INH STA (11:14)
[2024-11-25] MEDS: methylPREDNISolone 125 MG/2 ML VIAL IV STA (11:14)
[2024-11-25] MEDS: DOXYCYCLINE HYCLATE 100 MG CAP PO STA (11:15)
[2024-11-25 11:18] LABS: Albumin Globulin Ratio 1.2 (0.9-2); Albumin Level 3.6 gm/dl (3.4-5.0); BUN Creatinine Ratio 15.8 (10-20); Bilirubin,Total 0.9 mg/dl (0.2-1.0); Calcium 8.9 mg/dl (8.6-10.3); Creatinine Clr Calc Pharmacy 50.7 ml/min; Potassium 4.2 mmol/L (3.5-5.1); Total Protein 6.6 gm/dl (6.0-8.3)
[2024-11-25 11:32] LABS: Thyroid Stimulating Hormone 1.588 uIu/ml (0.300-4.500)
[2024-11-25 11:33] LABS: Adenovirus PCR Not Detected (NotDetected); Bordetella parapertussis PCR Not Detected (NotDetected); Bordetella pertussis PCR Not Detected (NotDetected); Chlamydia pneumoniae PCR Not Detected (NotDetected); Coronavirus 229E PCR Not Detected (NotDetected); Coronavirus CoV-2 (COVID19)PCR Not Detected (NotDetected); Coronavirus HKU1 PCR Not Detected (NotDetected); Coronavirus NL63 PCR Not Detected (NotDetected); Coronavirus OC43PCR Not Detected (NotDetected); Human Metapneumovirus PCR Not Detected (NotDetected); Influenza A (H1 2009) PCR DETECTED (NotDetected); Influenza B PCR Not Detected (NotDetected); Mycoplasma pneumoniae PCR Not Detected (NotDetected); Parainfluenza Virus 1 PCR Not Detected (NotDetected); Parainfluenza Virus 2 PCR Not Detected (NotDetected); Parainfluenza Virus 3 PCR Not Detected (NotDetected); Parainfluenza Virus 4 PCR Not Detected (NotDetected); Respiratory Syncytial VirusPCR Not Detected (NotDetected); Rhinovirus/Enterovirus PCR Not Detected (NotDetected)
--- OUTSIDE RECORDS SUMMARY | 2024-11-25 12:21 | External Medical Summary ---
Author Name Unknown Address Unknown Organization [id number]:[facility] [place] - [address] [place] [address] Laboratory Report Ordering Provider Test Date Status GUILHERME ANNE 11/14/2024 11:12:16 Final Observation Date Value Abnormality Reference (Units ) Status Vitamin B12 11/14/2024 11:12:16 [phone] (pg/mL) Final Performing Location [facility] - [address] [place] [address]
--- OUTSIDE RECORDS SUMMARY | 2024-11-25 12:21 | External Medical Summary | Summary of Care ---
Author Name Unknown Organization [facility] Address [address] [place] [address] Phone [phone] Care Team Providers Care Laboratory Mechanic Helper Name Role Phone Teofilo Krishnamurthy DO Primary Care Provider [phone] Encounter Details Date Type Department Care Team (Late st Contact Info) Description 10/25/2024 Population Health External Data Unspecified Department Allergies No known active allergiesdocumented as of this encounter (statuses as of 10/25/2024) Medications Polyethylene Glycol 3350 17 GM/SCOOP Oral Powder Take 17 g by mouth every evening. Dissolve one heaping tablespoon in 8 ounces of water or juice. 1 Bottle 2 01/27/20 18 Active Wheat Dextrin (BENEFIBER) powder Take by mouth daily. 01/27/20 18 Active Cyanocobalamin (VITAMIN B-12) 1000 MCG TabletIndications: B12 deficiency Take 1 Tablet by mouth in the morning. 02/27/20 18 Active Diclofenac Sodium 1 % External Gel apply 2 grams to affected area four times a day NEEDED FOR PAIN 300 g 5 10/02/20 20 Active CPAP every night at bedtime . Active Fluoridex 1.1 % Dental Paste (Sodium Fluoride) Take by mouth 1 Application Dosing Unit daily . 06/30/20 22 Active Vitamin C 500 MG Oral Tablet Chewable Take 1 Tablet by mouth in the morning. 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 1 Each 07/04/20 Active Vitamin D3 50 MCG (1999 UT) Oral Capsule Take 1 Capsule by mouth in the morning. 30 Capsule 5 08/14/20 22 Active Calcium Citrate Plus Oral Tablet Take 1 Tablet by mouth in the morning. Active Potassium Citrate ER 10 MEQ (1080 MG) Oral Tablet Extended Release (Urocit-K)Indicati ons:Calculus of kidney TAKE ONE TABLET BY MOUTH THREE TIMES A DAY 300 Tablet 3 09/12/2024 10:25 AM EST 11/20/19 24 025 Active Omeprazole 20 MG Oral Capsule Delayed Release (PriLOSEC) TAKE ONE CAPSULE BY MOUTH EVERY DAY 100 Capsule 3 09/19/2024 7:06 AM EST 11/26/19 24 025 Active amLODIPine Besylate 5 MG Oral Tablet (Norvasc)Indicatio ns:HTN, goal below 150/90 take 1 tablet by mouth every morning 90 Tablet 3 11/29/19 24 Active Finasteride 5 MG Oral Tablet (Proscar) Take one tablet by mouth every day 90 Tablet 3 10/10/2024 7:43 AM EST 05/17/20 24 Active Tamsulosin HCl 0.4 MG Oral Capsule (Flomax) Take one capsule by mouth every day 90 Capsule 3 09/19/2024 11:37 AM EST 05/17/20 24 Active Gabapentin 100 MG Oral Capsule (Neurontin)Indicat ions:Lumbar degenerative disc disease TAKE 1 CAPSULE BY MOUTH IN THE MORNING AND 1 CAPSULE BY MOUTH AT NOON AND 1 CAPSULE BY MOUTH BEFORE BEDTIME 90 Capsule 5 06/26/20 24 Active Trelegy Ellipta 100-62.5-25 MCG/ACT Aerosol Powder Breath Activated (Fluticasone-Umecl idinium-Vilanterol ) Inhale 1 Puff by mouth daily. 180 Each 06/30/2024 7:49 AM EDT 06/27/20 24 Active Classics Rolling WalkerIndications: Generalized osteoarthritis,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 Light, seat with brakes. 1 Each 07/24/20 24 Active Losartan Potassium 25 MG Oral Tablet (Cozaar)Indication s:HTN, goal below 150/90 TAKE ONE TABLET BY MOUTH IN THE MORNING 100 Tablet 1 08/02/2024 5:42 PM EDT 08/01/20 24 Active Donepezil HCl 10 MG Oral Tablet (Aricept)Indicatio ns:MCI (mild cognitive impairment) TAKE ONE TABLET BY MOUTH BEFORE BEDTIME WITH LARGEST MEAL OF THE DAY 100 Tablet 3 09/02/2024 10:05 AM EST 08/29/20 24 025 Active Mirtazapine 7.5 MG Oral Tablet (Remeron)Indicatio ns:PAUL (generalized anxiety disorder) TAKE 1 TABLET BY MOUTH AT BEDTIME 90 Tablet 1 09/24/20 24 Active Trelegy Ellipta 100-62.5-25 MCG/ACT Aerosol Powder Breath Activated (Fluticasone-Umecl idinium-Vilanterol ) 1 puff inhaled by mouth daily 180 Each 09/30/2024 2:17 PM EST 09/29/20 24 Active traMADol HCl 50 MG Oral Tablet (Ultram)Indication s:Generalized osteoarthritis Take 1 Tablet by mouth 2 times a day as needed for Pain, Severe. 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, bilateral legs 10/16/2023 PAUL (generalized anxiety disorder) 10/07/2022 Chronic respiratory failure with hypoxia 022 OAB (overactive bladder) 04/11/2022 B12 deficiency 07/12/2021 Lumbar degenerative disc disease 11/15/2020 COPD, group B, by GOLD 2017 classification 09/17 Overview: Per COPD GOLD Classification Gastroesophageal reflux disease without esophagi tis 05/14/2020 Secondary erythrocytosis 07/28/2018 MCI (mild cognitive impairment) 07/28/2018 BPH with obstruction/lower urinary tract symptom s 08/02/2015 HTN, goal below 150/90 05/29/2015 Obstructive sleep apnea of adult 05/02/2014 Pilar cyst 05/17/2013 History of colonic polyps 09/30/2006 GENERAL OSTEOARTHROSIS 10/18/2003 documented as of this encounter (statuses as of 10/25/2024) Resolved Problems Problem Noted Date Diagnosed Date Resolved Date Chronic respiratory failure, unsp w hypoxia or hypercapnia 10/07/2022 10/28/2022 Inflammatory polyarthritis 10/07/2022 0 10/16/2023 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, bilateral legs 10/07/2022 10/28/2022 Dementia without behavioral disturbance 08/08/2019 11/15/2020 Overview (07/07/2022): ICD-10 update of inactive term Elevated hemoglobin 01/31/2019 05/14/20 20 Post herpetic neuralgia 10/19/201701/04 Senile osteoporosis 01/19/2017 02/01/20 19 Neoplasm of uncertain behavior of skin 11/22/2014 02/24/2018 Nocturia 09/02/2014 07/21/2017 Calculus of ureter 08/23/2014 8 Hypertrophy of prostate with urinary obstruction and other lower urinary tract symptoms (LUTS) 08/07/2014 08/02/2015 Gamez angioma 11/22/2013 07/21/2017 History of actinic keratosis 11/22/2013 07/21/2017 Actinic keratosis 05/17/2013 07/21/2017 Open comedone 05/17/2013 07/21/2017 Other seborrheic keratosis 05/17/2013 1 Impotence of organic origin 05/14/2010 02/24/2018 Osteoporosis 08/07/2008 01/19/2017 ADVANCE DIRECTIVE INFORMATION 05/02/2008 04/10/2017 Overview (05/02/2008): Yes, Patient instructed to provide copy of advance directive for provider to review and to be scanned into Electronic Medical Record Esophageal reflux 09/30/2006 05/14/2020 Calculus of kidney 09/15/2006 7 COPD, moderate 10/18/2003 09/20/2020 DIVERTICULITIS OF COLON 10/18/200307/05 Vertebral fracture 7 documented as of this encounter (statuses as of 10/25/2024) Immunizations Name Administration Dates Next Due COVID-19 mRNA, LNP-s, No Pre serve, 2-Dose Series ([employer] 08/14/2021,12/11/2020,11/13/2020 COVID-19, LNP-s, No Preserve , Neal-sucrose, Ages 12+ ([employer] 04/22/2022 COVID-19, MRNA-LNP, PF, 30 M CG/0.3 mL, 12 YRS AND ABOVE, IM ([facility]) 07/12/2024 Covid-19, Mrna, Lnp-s, Pf, B ivalent, 30 Mcg, IM, 12 yrs and above (Pfizer) 10/07/2022 Pneumococcal Conjugate Vacc, 13 Valent (Prevnar) 01/31/2015 Pneumococcal Conjugate Vacci ne, 20-valent (Banmyrc37) 07/12/2024 RSV Vac., Bivalent, Perfusio n F, Pf,0.5 Ml (Abrysvo) 01/04/2024 Season Influenza, Quad, PF, Adjuvanted, 65+ Yrs, IM (FLUAD) 06/14/2020 Seasonal Influenza Vac., MDV , IM, 0.5 mL (Fluzone) 06/13/2015,06/29/2014,06/25/2013,2011,07/14/2011,07/14/2010,06/08/2009,1 ,08/19/2006 Seasonal Influenza, High Dos e, Trivalent, PF, IM (Fluzone HD) 07/12/2024 Seasonal Influenza, Quadriva lent Hd (Fluzone Hd) 07/07/2023,06/25/2022,07/12/2021 Seasonal Influenza, Quadriva lent, No Preserve, IM 07/21/2018,07/01/2017,07/03/2016 Seasonal Influenza, Trivalen t, Adjuvanted, 65+ YRS, PF, (Fluad) 07/29/2019 TD - Tetanus/Diptheria (ADULT) 02/04/2006 TDAP (age 10 and older)(Boostrix) 04/23/2015 TDAP, Age 7 and older, IM (Adacel) 09/11/2020 Varicella Zoster Vaccine (Adult) 04/14/2012 Zoster Vaccine Recombinant (Shingrix) 02/17/2020 ,11/24/2019 documented as of this encounter Social History Tobacco Use Types Packs/Day Years Used Date Smoking Tobacco: Former Cigarettes 2 30 0 10/15/1960 - 10/15/1990 Passive Smoke Exposure: Past Smokeless Tobacco: Never Alcohol Use Standard Drinks/Week Comments Yes 0 (1 standard drink = 0.6 oz pur e alcohol) 1-2 drinks some days PHQ-2 Answer Date Recorded PHQ Adult Total Score 3 01/04/2024 Hunger Vital Sign Answer Date Recorded Within the past 12 months, y ou worried that your food would run out before you got the money to buy more. Never true 11/09/19 24 Within the past 12 months, t he food you bought just didn't last and you didn't have money to get more. Never true 11/09/2023 Childcare Answer Date Recorded Do you feel overwhelmed with taking care of a child, family member or friend? No 11/09/2023 Does your family need help f inding childcare? (Household - for ages 0-17 years) Not on file 11/09/2023 Clothing Answer Date Recorded Have you been unable to get clothing when it was really needed? No 11/09/2023 Is your family able to get c lothes or diapers when needed? (Household - for ages 0-17 years) Not on file 11/09/2023 Personal Safety Answer Date Recorded Do you feel unsafe or have concerns for your saf ety? No 11/09/2023 Do you have concerns for you r family's safety? (Household - for ages 0-17 years) Not on file 11/09/2023 Utilities Answer Date Recorded Do you have trouble paying y our heating, water, or electric bill? No 11/09/2023 Is your family able to pay t he heat, water, or electric bill? (Household - for ages 0-17 years) Not on file 11/09/2023 Does your family have access to good internet? (Household - for ages 0-17 years) Not on file 11/09/2023 Employment Status Answer Date Recorded Are you unemployed or without regular income? No 11/09/2023 Does the household have a re gular source of income? (Household - for ages 0-17 years) Not on file 11/09/2023 Social Connections Answer Date Recorded How often do you feel lonely or isolated from th ose around you? Never 11/09/2023 Financial Resource Strain Answer Date R ecorded Do you have any trouble payi ng for your medications, or do you think you might in the future? No 11/09/2023 Does your family have troubl e paying for medicine? (Household - for ages 0-17 years) Not on file 11/09/2023 Transportation Needs Answer Date Record ed READ ONLY Do you have troubl e getting a ride to medical visits or work? Never True 11/09/2023 Does your family have a hard time getting a ride to doctors visits? (Household - for ages 0-17 years) Not on file 11/09/2023 Has lack of transportation k ept you from medical appointments, meetings, work, or from getting things needed for daily living? Check all that apply. (Adult - for ages 18 years and over) Not on file 11/09/2023 Do you (or your family) have trouble finding or paying for a ride (transportation)? (Household - for ages 0-17 years) Not on file 11/09/2023 Housing Stability Answer Date Recorded Do you currently live in a s helter or have no steady place to sleep at night? No 11/09/2023 READ ONLY Do you think you a re at risk of becoming homeless? No 11/09/2023 Does your family worry about paying for your home or becoming homeless? (Household - for ages 0-17 years) Not on file 0 11/09/2023 Are you homeless or worried that you might be in the future? (Adult - for ages 18 years and over) Not on file Are you (or your family) nesha eless or worried that you might be in the future? (Household - for ages 0-17 years) Not on file Food Insecurity Answer Date Recorded Do you need food for this week? No 11/09/2023 Are you able to get enough f ood for your family? (Household - for ages 0-17 years) Not on file 11/09/2023 Does your family need food t his week? (Household - for ages 0-17 years) Not on file 11/09/2023 Do you always have enough fo od for your family? 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, [place] [address] Health Maintenance Due Date Last Done Comments Alpha-1 Antitrypsin 1958 Adult Wellness Visit 01/03/2025 01/04/2024, 12/30/2022, 07/18/2021 Depression Screening 01/03/2025 01/04/2024 Albumin/Creatinine Ratio 06/25/2025 06/25/2022 O2 ASSESSMENT COMPLETED IN PAST YEAR FOR COPD 09/27/2025 09/27/2024 DXA Scan 02/21/2026 02/22/2024, 11/0 04/2018, 07/21/2016, Additional history exists DTap/Tdap Vaccines (3 - Td or Tdap) 09/11/2030 09/11/2020, 04/23/2015, 02/04/2006 Zoster Vaccines Completed 02/17/2020, 11/06, 04/14/2012 COVID-19 Vaccine Completed 07/12/2024, 12/2022, 04/22/2022, Additional history exists Influenza Vaccine (FLU shot) Completed 05/2024, 07/07/2023, 06/25/2022, Additional history exists Pneumococcal Vaccine: 50+ Years Completed 07/12/2024, 01/31/2015, 11/04/2004 HPV (Gardasil) Vaccine Aged Out No lo nger eligible based on patient's age to complete this topic Hepatitis B Vaccine Aged Out No longe r eligible based on patient's age to complete this topic MENINGOCOCCAL (MENACTRA/MENVEO) Aged Out No longer eligible based on patient's age to complete this topic documented as of this encounter Medical Devices Implanted Type Area Wash Mill Operator Device Identifier Shelf Expiration Date Model / Serial / Lot Corkscrew Bio Composite X5 - [id number] Implanted:Qty: 3 on 07/02/2017 by Gael Stratton MD at OR [facility] Left: Shoulder [employer] 02/01/2019 [id number] / / [id number] [place] Pushlock 4.5x24mm - [id number] Implanted:Qty: 3 on 07/02/2017 by Gael Stratton MD at OR [facility] Left: Shoulder [employer] 02/01/2019 [id number] / / [id number] Lens Intraoc 19.0 - [id number] - [id number] Implanted:Qty: 1 on 12/26/2021 by Saurav Cohen MD at OR [facility] Left: Eye [employer] 10/04/2026 [id number] / [id number] / [id number] Lens Intraoc 19.0 - [id number] - [id number] Implanted:Qty: 1 on 01/09/2022 by Saurav Cohen MD at OR [facility] Right: Eye [employer]OM[employer] 10/04/2026 [id number] / [id number] / [id number] documented as of this encounter Care Teams Laboratory Mechanic Helper Relationship Specialty Start Date End Date Teofilo Krishnamurthy DO [address] [place] [address] PCP - General Internal Medicine 03/17/24 documented as of this encounter
--- OUTSIDE RECORDS SUMMARY | 2024-11-25 12:21 | External Medical Summary | Summary of Care ---
Author Name Unknown Organization [facility] Address [address] [place] [address] Phone [phone] Care Team Providers Care Confectionery Drops Machine Operator Name Role Phone Dayana Krishnamurthy DO Primary Care Provider [phone] Reason for Visit * Reason Comments eRx-Medication Refill Encounter Details Date Type Department Care Team (Late st Contact Info) Description 10/06/2024 Refill Family Practice [address], [place] [address] [place] [phone] Dayana Krishnamurthy DO [address] [place], [place] [phone] GENERAL OSTEOARTHROSIS Allergies No known active allergiesdocumented as of this encounter (statuses as of 10/09/2024) Medications Polyethylene Glycol 3350 17 GM/SCOOP Oral Powder Take 17 g by mouth every evening. Dissolve one heaping tablespoon in 8 ounces of water or juice. 1 Bottle 2 018 Active Wheat Dextrin (BENEFIBER) powder Take by mouth daily. 018 Active Cyanocobalamin (VITAMIN B-12) 1000 MCG TabletIndications :B12 deficiency Take 1 Tablet by mouth in the morning. 018 Active Diclofenac Sodium 1 % External Gel apply 2 grams to affected area four times a day NEEDED FOR PAIN 300 g 5 020 Active CPAP every night at bedtime . Active Fluoridex 1.1 % Dental Paste (Sodium Fluoride) Take by mouth 1 Application Dosing Unit daily . Active Vitamin C 500 MG Oral Tablet Chewable Take 1 Tablet by mouth in the morning. Active oxygen IN GASIndications:CO PD, group B, by GOLD 2017 classification ([facility]) Administer into nostril 3 L/min(Oxygen) continuous . 1 Each Active Vitamin D3 50 MCG (2000 UT) Oral Capsule Take 1 Capsule by mouth in the morning. 30 Capsule 5 Active Calcium Citrate Plus Oral Tablet Take 1 Tablet by mouth in the morning. Active Potassium Citrate ER 10 MEQ (1080 MG) Oral Tablet Extended Release (Urocit-K)Indicat ions:Calculus of kidney TAKE ONE TABLET BY MOUTH THREE TIMES A DAY 300 Tablet 3 4 10:25 AM EST 2024 Active Omeprazole 20 MG Oral Capsule Delayed Release (PriLOSEC) TAKE ONE CAPSULE BY MOUTH EVERY DAY 100 Capsule 3 4 7:06 AM EST 2024 Active amLODIPine Besylate 5 MG Oral Tablet (Norvasc)Indicati ons:HTN, goal below 150/90 take 1 tablet by mouth every morning 90 Tablet 3 Active Finasteride 5 MG Oral Tablet (Proscar) Take one tablet by mouth every day 90 Tablet 3 4 3:24 PM EDT Active Tamsulosin HCl 0.4 MG Oral Capsule (Flomax) Take one capsule by mouth every day 90 Capsule 3 4 11:37 AM EST Active Gabapentin 100 MG Oral Capsule (Neurontin)Indica tions:Lumbar degenerative disc disease TAKE 1 CAPSULE BY MOUTH IN THE MORNING AND 1 CAPSULE BY MOUTH AT NOON AND 1 CAPSULE BY MOUTH BEFORE BEDTIME 90 Capsule 5 Active Trelegy Ellipta 100-62.5-25 MCG/ACT Aerosol Powder Breath Activated (Fluticasone-Umec lidinium-Vilanter ol) Inhale 1 Puff by mouth daily. 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 Light, seat with brakes. 1 Each 024 Active Losartan Potassium 25 MG Oral Tablet (Cozaar)Indicatio ns:HTN, goal below 150/90 TAKE ONE TABLET BY MOUTH IN THE MORNING 100 Tablet 1 4 5:42 PM EDT 024 Active Donepezil HCl 10 MG Oral Tablet (Aricept)Indicati ons:MCI (mild cognitive impairment) TAKE ONE TABLET BY MOUTH BEFORE BEDTIME WITH LARGEST MEAL OF THE DAY 100 Tablet 3 4 10:05 AM EST 024 2024 Active Mirtazapine 7.5 MG Oral Tablet (Remeron)Indicati ons:PAUL (generalized anxiety disorder) TAKE 1 TABLET BY MOUTH AT BEDTIME 90 Tablet 1 024 Active Trelegy Ellipta 100-62.5-25 MCG/ACT Aerosol Powder Breath Activated (Fluticasone-Umec lidinium-Vilanter ol) 1 puff inhaled by mouth daily 180 Each 4 2:17 PM EST 024 Active traMADol HCl 50 MG Oral Tablet (Ultram)Indicatio ns:Generalized osteoarthritis Take 1 Tablet by mouth 2 times a day as needed for Pain, Severe. 60 Tablet 025 Active traMADol HCl 50 MG Oral Tablet (Ultram)Indicatio ns:Generalized osteoarthritis Take 1 Tablet by mouth 2 times a day as needed for Pain, Severe. 60 Tablet 024 2024 Discontinued documented as of this encounter (statuses as of 10/09/2024) Active Problems Problem Noted Date Diagnosed Date [...] as of this encounter (statuses as of 10/09/2024) Resolved Problems Problem Noted Date Diagnosed Date [...] as of this encounter (statuses as of 10/09/2024) Immunizations Name Administration Dates Next Due COVID-19 mRNA, LNP-s, No Pre serve, 2-Dose Series (Pfizer) 08/14/2021,12/11/2020,11/13/2020 COVID-19, LNP-s, No Preserve , Neal-sucrose, Ages 12+ (Pfizer) 04/22/2022 COVID-19, MRNA-LNP, PF, 30 M CG/0.3 mL, 12 YRS AND ABOVE, IM ([facility] 07/12/2024 Covid-19, Mrna, Lnp-s, Pf, B ivalent, 30 Mcg, IM, 12 yrs and above ([place]) 10/07/2022 Pneumococcal Conjugate Vacc, 13 Valent (Prevnar) 01/31/2015 Pneumococcal Conjugate Vacci ne, 20-valent ([id number]) 07/12/2024 RSV Vac., Bivalent, Perfusio n F, [...] on file documented as of this encounter Miscellaneous Notes * Telephone Encounter - Dayana Krishnamurthy DO - 10/09/2024 10:47 AM ESTSigned Prescriptions: Disp Refills traMADol HCl 50 MG Oral Tablet (Ultram) 60 Tab*0 Sig: Take 1 Tablet by mouth 2 times a day as needed for Pain, Severe.Authorizing Provider: DAYANA KRISHNAMURTHY--------- * Telephone Encounter - Dayana Krishnamurthy DO - 10/09/2024 10:47 AM EST I have reviewed the patients controlled substance dispensing history in the Prescription Drug Monitoring Program in compliance with the [facility] regulations before prescribing a controlled substance. Last Tox Screen Results: No results found. However, due to the size of the patient record, not all encounters were searched.Please check Results Review for a complete set of results. Medication due * Telephone Encounter - Rufina Mitchell [facility] - 10/08/2024 10:08 AM ESTPending Prescriptions: Disp Refills traMADol HCl 50 MG Oral Tablet (Ultram) 60 Tab*0 Sig: Take 1 Tablet by mouth 2 times a day as needed for Pain, Severe. * Telephone Encounter - Rufina Mitchell RPh - 10/08/2024 10:08 AM EST I have reviewed the patients controlled substance dispensing history in the Prescription Drug Monitoring Program in compliance with the [facility] regulations before prescribing a controlled substance. PDMP checked on 10/08/2024. Pending Prescriptions: Disp Refills traMADol HCl 50 MG Oral Tablet (Ultram) [*60 Tab*0 Sig: TAKE 1 TABLET BY MOUTH TWICE A DAY NEEDED FOR SEVERE PAIN Last Visit: 09/27/2024 (in office), Visit date not found (telemedicine) Next Visit: 10/11/2024 Date medication was last filled: 09/07 Date medication is due for refill: 10/06 [facility]: [id number] [address] [facility] Is this request for a controlled substance? Yes and Urine Drug Screen Not completed Toxicology results: No results found. However, due to the size of the patient record, not all encounters were searched.Please check Results Review for a complete set of results. Please approve if appropriate. Thanks, Rufina Mitchell, PharmD Clinical Pharmacist [facility] ([facility]) [phone] 10/08/2024 10:08 AM documented in this encounter Plan of Treatment Upcoming Encounters Date Type Department Care Team (Late st Contact Info) Description 10/11/2024 12:30 PM EST Office Visit Family Practice [address] [facility] 293 [facility] [place] [phone] [place], [facility] Petroleum Refinery Operator [facility] [address] [place] [address] 11/14/2024 10:40 AM EST Office Visit Family Practice [address] [place] [address], [place] 293 [facility], [place] [address] Dayana Krishnamurthy, 293 [place] [address] 02/22/2025 10:40 AM EDT Office Visit Rheumatology [facility] [address] [place] [address] Best Wilkins MD [address] [place] [address] Health Maintenance Due Date Last Done Comments Alpha-1 Antitrypsin 1958 Adult Wellness Visit 01/03/2025 01/04/2024, 12/30/2022, 07/18/2021 Depression Screening 01/03/2025 01/04/2024 Albumin/Creatinine Ratio 06/25/2025 06/25/2022 O2 ASSESSMENT COMPLETED IN PAST YEAR FOR COPD 09/27/2025 09/27/2024 DXA Scan 02/21/2026 02/22/2024, 11/04/2018, 07/21/2016, Additional history exists DTap/Tdap Vaccines (3 [...] this encounter Medical Devices Implanted Type Area Band Teacher Device Identifier Shelf Expiration Date Model / Serial / Lot Fidel Bio Composite X5 - [id number] Implanted:Qty: 3 on 07/02/2017 by Gael Stratton MD at OR [facility] Left: Shoulder [employer] 02/01/2019 [id number]-1927BCF / / [id number] [place] Pushlock 4.5x24mm - [id number] Implanted:Qty: 3 on 07/02/2017 by Gael Stratton MD at OR [facility] Left: Shoulder [employer] 02/01/2019 AR-1922BC / / [id number] Lens Intraoc 19.0 - [id number] - [id number] Implanted:Qty: 1 on 12/26/2021 by Saurav Cohen MD at OR [facility] Left: Eye [employer]OM[employer] 10/04/2026 [id number] / [id number] / [id number] Lens Intraoc 19.0 - [id number] - [id number] Implanted:Qty: 1 on 01/09/2022 by Saurav Cohen MD at OR [facility] Right: Eye [employer]OMB 10/04/2026 [id number] / [id number] / [id number] documented as of this encounter Visit Diagnoses Diagnosis GENERAL OSTEOARTHROSIS Generalized osteoarthrosis, unspecified site documented in this encounter Care Teams Confectionery Drops Machine Operator Relationship Specialty Start Date End Date Dayana Krishnamurthy DO [address] [place] [address] PCP - General Internal Medicine 03/17/24 documented as of this encounter
--- OUTSIDE RECORDS SUMMARY | 2024-11-25 12:21 | External Medical Summary | Summary of Care ---
Author Name Unknown Organization [facility] Address [address] [place] [address] Phone [phone] Care Team Providers Care Commercial Horticulture Instructor Name Role Phone Teofilo Krishnamurthy DO Primary Care Provider [phone] Reason for Visit * Reason Onset Date Comments Appointment 10/10/2024 Training session Encounter Details Date Type Department Care Team (Late st Contact Info) Description 10/10/2024 Telephone HEALTH & WELLNESS Teofilo Krishnamurthy DO [address] [place], [place] [phone] Appointment (Training session ) Allergies No known active allergiesdocumented as of this encounter (statuses as of 10/10/2024) Medications Polyethylene Glycol 3350 17 GM/SCOOP Oral [...] 1 Application Dosing Unit daily . 06/30/20 Active Vitamin C 500 MG Oral Tablet Chewable Take 1 Tablet by mouth in the morning. Active oxygen IN GASIndications:ELECTRONIC PUBLICATIONS SPECIALIST D, group B, by GOLD 2017 classification ([facility]) Administer into nostril 3 L/min(Oxygen) continuous . 1 Each 07/04/20 Active Vitamin D3 50 MCG (2000 UT) [...] as of this encounter (statuses as of 10/10/2024) Active Problems Problem Noted Date Diagnosed Date [...] as of this encounter (statuses as of 10/10/2024) Resolved Problems Problem Noted Date Diagnosed Date [...] as of this encounter (statuses as of 10/10/2024) Immunizations Name Administration Dates Next Due COVID-19 mRNA, LNP-s, No Pre serve, 2-Dose Series ([employer]) 08/14/2021,12/11/2020,11/13/2020 COVID-19, LNP-s, No Preserve , Neal-sucrose, Ages 12+ (Pfizer) 04/22/2022 COVID-19, MRNA-LNP, PF, 30 M CG/0.3 mL, 12 YRS AND ABOVE, IM ([facility]) 07/12/2024 Covid-19, Mrna, Lnp-s, Pf, B ivalent, 30 Mcg, IM, 12 yrs and above ([employer]) 10/07/2022 Pneumococcal Conjugate Vacc, 13 Valent (Prevnar) 01/31/2015 Pneumococcal Conjugate Vacci ne, 20-valent ([id number]) 07/12/2024 RSV Vac., Bivalent, Perfusio n F, [...] encounter Miscellaneous Notes * Telephone Encounter - Zaid [facility] Alarm Superintendent - 10/10/2024 2:37 PM EST Call pt to let pt know I wont be in 07/11. I couldn't reach pt but did leave a voicemail. documented in this encounter Plan of Treatment Upcoming Encounters Date Type Department Care Team (Late st Contact Info) Description 11/14/2024 10:40 AM EST Office Visit Family Practice [address] [place] [address] [address] [place] [address] Teofilo Krishnamurthy, [address] [place] [address] 02/22/2025 10:40 AM EDT Office Visit Rheumatology [place] [address] [place] [address] Best Wilkins MD [address] [place] [address] Health Maintenance Due Date Last Done Comments [...] this encounter Medical Devices Implanted Type Area Frit Mixer And Burner Device Identifier Shelf Expiration Date Model / Serial / Lot [employer] Bio Composite X5 - [id number] Implanted:Qty: 3 on 07/02/2017 by Gael Stratton MD at OR [facility] Left: Shoulder [employer] 02/01/2019 AR-1927BCF / / [id number] [place] Pushlock 4.5x24mm - [id number] Implanted:Qty: 3 on 07/02/2017 by Gael Stratton MD at OR [facility] Left: Shoulder [employer] 02/01/2019 AR-1922BC / / [id number] Lens Intraoc 19.0 - [id number] - [id number] Implanted:Qty: 1 on 12/26/2021 by Saurav Cohen MD at OR [facility] Left: Eye [employer] LOMB 10/04/2026 [id number] / [id number] / [id number] Lens Intraoc 19.0 - [id number] - [id number] Implanted:Qty: 1 on 01/09/2022 by Saurav Cohen MD at OR [facility] Right: Eye [employer]OMB 10/04/2026 [id number] / [id number] / [id number] documented as of this encounter Care Teams Commercial Horticulture Instructor Relationship Specialty Start Date End Date Teofilo Krishnamurthy DO [address] [place] [address] PCP - General Internal Medicine 03/17/24 documented as of this encounter
--- OUTSIDE RECORDS SUMMARY | 2024-11-25 12:21 | External Medical Summary | Summary of Care ---
Author Name Unknown Organization [facility] Address [address] [place] [address] Phone [phone] Care Team Providers Care Mainspring Reverse Winder Name Role Phone Dayana Krishnamurthy DO Primary Care Provider [phone] Reason for Visit * Reason Comments eRx-Medication Refill Encounter Details Date Type Department Care Team (Late st Contact Info) Description 11/08/2024 Refill Family Practice [address], [place] [address] [place] [phone] Dayana Krishnamurthy DO [address] [place] [address] GENERAL OSTEOARTHROSIS Allergies No known active allergiesdocumented as of this encounter (statuses as of 11/09/2024) Medications Polyethylene Glycol 3350 17 GM/SCOOP Oral Powder Take 17 g by mouth every evening. Dissolve one heaping tablespoon in 8 ounces of water or juice. 1 Bottle 2 018 Active Wheat Dextrin (BENEFIBER) powder Take by mouth daily. Active Cyanocobalamin (VITAMIN B-12) 1000 MCG TabletIndications [...] PD, group B, by GOLD 2017 classification ([facility]) Administer into nostril 3 L/min(Oxygen) continuous . [...] 100 Capsule 3 4 7:06 AM EST 024 2024 Active amLODIPine Besylate 5 MG Oral Tablet (Norvasc)Indicati ons:HTN, goal below 150/90 take 1 tablet by mouth every morning 90 Tablet 3 Active Finasteride 5 MG Oral Tablet (Proscar) Take one tablet by mouth every day 90 Tablet 3 5 7:43 AM EST Active Tamsulosin HCl 0.4 MG Oral Capsule [...] lidinium-Vilanter ol) Inhale 1 Puff by mouth daily 180 Each 5 5:50 PM EST 025 Active traMADol HCl 50 MG Oral Tablet (Ultram)Indicatio ns:Generalized osteoarthritis TAKE 1 TABLET BY MOUTH 2 TIMES A DAY NEEDED FOR PAIN, SEVERE. 60 Tablet 025 Active traMADol HCl 50 MG Oral Tablet (Ultram)Indicatio ns:Generalized osteoarthritis Take 1 Tablet by mouth 2 times a day as needed for Pain, Severe. 60 Tablet 025 2024 Discontinued documented as of this encounter (statuses as of 11/09/2024) Active Problems Problem Noted Date Diagnosed Date [...] as of this encounter (statuses as of 11/09/2024) Resolved Problems Problem Noted Date Diagnosed Date [...] as of this encounter (statuses as of 11/09/2024) Immunizations Name Administration Dates Next Due COVID-19 mRNA, LNP-s, No Pre serve, 2-Dose Series (Pfizer) 08/14/2021,12/11/2020,11/13/2020 COVID-19, LNP-s, No Preserve , Neal-sucrose, Ages 12+ (Pfizer) 04/22/2022 COVID-19, MRNA-LNP, PF, 30 M CG/0.3 mL, 12 YRS AND ABOVE, IM ([facility] 07/12/2024 Covid-19, Mrna, Lnp-s, Pf, B ivalent, 30 Mcg, IM, 12 yrs and above ([employer]) 10/07/2022 Pneumococcal Conjugate Vacc, 13 Valent (Prevnar) 01/31/2015 Pneumococcal Conjugate Vacci ne, 20-valent ([id number]) 07/12/2024 RSV Vac., Bivalent, Perfusio n F, [...] Telephone Encounter - Dayana Krishnamurthy DO - 11/09/2024 1:17 PM ESTSigned Prescriptions: Disp Refills traMADol HCl 50 MG Oral Tablet (Ultram) 60 Tab*0 Sig: TAKE 1 TABLET BY MOUTH 2 TIMES A DAY NEEDED FOR PAIN, SEVERE.Authorizing Provider: DAYANA KRISHNAMURTHY * Telephone Encounter - Dayana Krishnamurthy DO - 11/09/2024 1:16 PM EST I have reviewed the patients controlled substance dispensing history in the Prescription Drug Monitoring Program in compliance with the [facility] regulations before prescribing a controlled substance. Last Tox Screen Results: No results found. However, due to the size of the patient record, not all encounters were searched.Please check Results Review for a complete set of results. Medication due 11/07/2024 * Telephone Encounter - Josue Mahmood [facility] - 11/09/2024 11:36 AM EST Pending Prescriptions: Disp Refills traMADol HCl 50 MG Oral Tablet [Pharmacy M*60 Tab*0 Sig: Take 1 Tablet by mouth 2 times a day as needed for Pain, Severe. * Telephone Encounter - Josue Mahmood [facility] - 11/09/2024 11:36 AM EST I have reviewed the patients controlled substance dispensing history in the Prescription Drug Monitoring Program in compliance with the [facility] regulations before prescribing a controlled substance. PDMP checked on 11/09/2024. Pending Prescriptions: Disp Refills traMADol HCl 50 MG Oral Tablet (Ultram) [*60 Tab*0 Sig: TAKE 1 TABLET BY MOUTH 2 TIMES A DAY NEEDED FOR PAIN, SEVERE. Last Visit: 09/27/2024 (in office), Visit date not found (telemedicine) Next Visit: 11/14/2024 Date medication was last filled: 10/09/2024 Date medication is due for refill: 11/07/2024 Pharmacy: [id number] [address] [place] [address] Is this request for a controlled substance? Yes and Urine Drug Screen Not completed Toxicology results: No results found. However, due to the size of the patient record, not all encounters were searched.Please check Results Review for a complete set of results. Please approve if appropriate. Thanks, Josue Mahmood Pharm.D. Clinical Pharmacist [facility] ([facility]) [phone] 11/09/2024, 11:36 AM documented in this encounter Plan of Treatment Upcoming Encounters Date Type Department Care Team (Late st Contact Info) Description 11/14/2024 10:40 AM EST Office Visit Family Practice [address], [place] [address] [facility] [place] [address] Sulman, Dayana A, DO [address] [facility] [address] 02/22/2025 10:40 AM EDT Office Visit Rheumatology [facility] [address] [place] [phone] Best Wilkins MD [address] [facility] [place] [address] Health Maintenance Due Date Last Done Comments [...] this encounter Medical Devices Implanted Type Area Resident Physician Device Identifier Shelf Expiration Date Model / Serial / Lot Fidel Bio Composite X5 - [id number] Implanted:Qty: 3 on 07/02/2017 by Gael Stratton MD at OR [facility] Left: Shoulder [employer] 02/01/2019 AR-1927BCF / / [id number] [place] Pushlock 4.5x24mm - [id number] Implanted:Qty: 3 on 07/02/2017 by Gael Stratton MD at OR [facility] Left: Shoulder [employer] 02/01/2019 AR-1922BC / / [id number] Lens Intraoc 19.0 - [id number] - [id number] Implanted:Qty: 1 on 12/26/2021 by Saurav Cohen MD at OR [facility] Left: Eye [employer]OM[employer] 10/04/2026 [id number] / [id number] / [id number] Lens Intraoc 19.0 - [id number] - [id number] Implanted:Qty: 1 on 01/09/2022 by Saurav Cohen MD at OR [facility] Right: Eye [employer]CH [employer] LOMB 10/04/2026 [id number] / [id number] / [id number] documented as of this encounter Visit Diagnoses Diagnosis GENERAL OSTEOARTHROSIS Generalized osteoarthrosis, unspecified site documented in this encounter Care Teams Mainspring Reverse Winder Relationship Specialty Start Date End Date Dayana Krishnamurthy DO [address] [place] [address] PCP - General Internal Medicine 03/17/24 documented as of this encounter
--- OUTSIDE RECORDS SUMMARY | 2024-11-25 12:21 | External Medical Summary | Summary of Care ---
Author Name Unknown Organization [facility] Address [address] [place] [address] Phone [phone] Care Team Providers Care Cloth Doffer Name Role Phone Teofilo Krishnamurthy DO Primary Care Provider [phone] Reason for Visit * Reason Comments Acute Encounter Details Date Type Department Care Team (Latest Contact Info) Description 09/27/2024 3:00 PM EST Office Visit Family Practice [address] [facility], [place] [address] [place] [address] Teofilo Krishnamurthy DO [address] [place] [address] Viral upper respiratory tract infection*; COPD, group B, by GOLD 2017 classification ([facility]); Chronic respiratory failure with hypoxia ([facility]); HTN, goal below 150/90; BPH with obstruction/lower urinary tract symptoms; MCI (mild cognitive impairment); Gastroesophageal reflux disease without esophagitis; Degeneration of intervertebral disc of lumbar region with discogenic back pain; B12 deficiency; Dark stools; PAUL (generalized anxiety disorder); Other atherosclerosis of [place] arteries of extremities, bilateral legs ([facility]); Obstructive sleep apnea of adult; OAB (overactive bladder); Risk and functional assessment Allergies No known active allergiesdocumented as of this encounter (statuses as of 09/27/2024) Medications Polyethylene Glycol 3350 17 GM/SCOOP Oral [...] mouth in the morning. Active oxygen IN GASIndications:BLENDER HELPER D, group B, by GOLD 2017 classification [...] by mouth every day 90 Tablet 3 07/23/2024 3:24 PM EDT 05/17/20 24 Active Tamsulosin HCl 0.4 MG [...] 10:05 AM EST 08/29/20 24 025 Active traMADol HCl 50 MG Oral Tablet (Ultram)Indication s:Generalized osteoarthritis Take 1 Tablet by mouth 2 times a day as needed for Pain, Severe. 60 Tablet 09/07/20 24 Active Mirtazapine 7.5 MG Oral Tablet (Remeron)Indicatio ns:PAUL (generalized anxiety disorder) TAKE 1 TABLET BY MOUTH AT BEDTIME 90 Tablet 1 09/24/20 24 Active predniSONE 20 MG Oral Tablet (Deltasone)Indicat ions:Viral upper respiratory tract infection Take 1 Tablet by mouth in the morning for 5 days. 5 Tablet 09/27/20 24 024 Active documented as of this encounter (statuses as of 09/27/2024) Active Problems Problem Noted Date Diagnosed Date [...] as of this encounter (statuses as of 09/27/2024) Resolved Problems Problem Noted Date Diagnosed Date [...] as of this encounter (statuses as of 09/27/2024) Immunizations Name Administration Dates Next Due COVID-19 mRNA, LNP-s, No Pre serve, 2-Dose Series (Scale[employer]) 08/14/2021,12/11/2020,11/13/2020 COVID-19, LNP-s, No Preserve , Neal-sucrose, Ages 12+ (Scale[employer]) 04/22/2022 COVID-19, MRNA-LNP, PF, 30 M CG/0.3 mL, 12 YRS AND ABOVE, IM (Sim[facility] Measured[facility]) 07/12/2024 Covid-19, Mrna, Lnp-s, Pf, B ivalent, 30 Mcg, IM, 12 yrs and above (ScaleMP) 10/07/2022 Pneumococcal Conjugate Vacc, 13 Valent (Prevnar) 01/31/2015 Pneumococcal Conjugate Vacci ne, 20-valent ([id number]) 07/12/2024 RSV Vac., Bivalent, Perfusio n F, [...] Passive Smoke Exposure: Past Smokeless Tobacco: Never Tobacco Cessation:Counseling Given: Yes Alcohol Use Standard Drinks/Week Comments Yes 0 [...] on file documented as of this encounter Last Filed Vital Signs Vital Sign Reading Time Taken Comments Blood Pressure 114/68 09/27/2024 2:26 PM EST Pulse 68 09/27/2024 2:26 PM EST Temperature 36.4 C (97.6 F) 09/27/2024 2:26 PM ES T Respiratory Rate 14 09/27/2024 2:26 PM EST Oxygen Saturation 95% 09/27/2024 2:26 PM EST Inhaled Oxygen Concentration - - Weight 88.7 kg (195 lb 9.6 oz) 09/27/2024 2:26 P M EST Height 174.6 cm (5' 8.75") 09/27/2024 2:26 PM ES T Body Mass Index 29.1 09/27/2024 2:26 PM EST documented in this encounter Patient Instructions * Patient Instructions* Bessy Herndon LPN - 09/27/2024 2:22 PM EST Patient Instructions - Fall Prevention (This education is for all patients over 65 regardless of symptoms) Remember to take your current medications as prescribed. In order to prevent falls, you are encouraged to: Exercise Utilize assistive/adaptive devices Avoid multifocal lenses when walking Avoid hazards in home Maintain a regular toileting schedule Any questions please contact our office. Preventing Falls in the Home (This education is for all patients over 65 regardless of symptoms) As you get older, falls are more likely. Thats because your reaction time slows. Your muscles and joints may also get stiffer, making them less flexible. Illness, medications, and vision changes can also affect your balance. A fall could leave you unable to live on your own. To make your home safer, follow these tips: Floors Put nonskid pads under area rugs Remove throw rugs Replace worn floor coverings Tack carpets firmly to each step on carpeted stairs. Put nonskid strips on the edges of uncarpeted stairs Keep floors and stairs free of clutter and cords Arrange furniture so there are clear pathways Clean up any spills right away Bathrooms Install grab bars in the tub or shower Apply nonskid strips or put a nonskid rubber mat in the tub or shower Sit on a bath chair to bathe Use bathmats with nonskid backing Lighting Keep a flashlight in each room Put a nightlight along the pathway between the bedroom and the bathroom Joey Patient Education Copyright 2008 - 2010 Joey except where otherwise noted Preventing Falls: Exercises to Improve Balance, Flexibility, Strength, and Staying Power (This education is for all patients over 65 regardless of symptoms) Certain types of exercises may help make you less likely to fall. Try the ones below. Or do other exercises that your healthcare provider suggests. Depending on your health, you may need to start slowly. Dont let that stop you. Even small amounts of exercise can help you. Be sure to talk to yourhealthcare provider before starting any exercise program. Improve Balance Many types of exercise can help improve balance. Marcus chi and yoga are good examples. Heres another one to try. You can do it anytime and almost anywhere. Stand next to a counter or solid support. Push yourself up onto your tiptoes. Hold for 5 seconds. If you start to lose your balance, hold on to the counter. Rest and repeat 5 times. Work up to holding for 20 to 30 seconds, if you can. Increase Flexibility Being more flexible makes it easier for you to move around safely. Try exercises like the seated hamstring stretch. Sit in a chair and put one foot on a stool. Straighten your leg and reach with both hands down either side of your leg. Reach as far down your leg as you can. Hold for about 20 seconds. Go back to the starting position. Then repeat 5 times. Switch legs. Build Strength Resistance exercises help build strength. You can do them without equipment. Or you can use weights, elastic bands, or special machines. One such exercise is called the biceps curl. You can hold a 1 pound weight or even a can of soup. Do this exercise at least 3 times a week. Strive for everyday. Sit up straight in a chair. Keep your elbow close to your body and your wrist straight. Bend your arm, moving your hand up to your shoulder. Then slowly lower your arm. Repeat 5 times. Switch to the other arm. Build Your Staying Power Aerobic exercises make your heart and lungs stronger so you can keep moving longer. Walking and swimming are two of the best types of exercises you can do. Using a stationary bike is great, too. Find an aerobic exercise that you enjoy. Start slowly and build up. Even 5 minutes is helpful. Aimfor a goal of 30 minutes, at least 3 times a week. You dont have to do 30 minutes in one session. Break it up and walk a little throughout the day. More Helpful Tips Start easy. Slowly work up to doing more. Talk with your healthcare provider about the best exercises for you. Call senior centers or health clubs about exercise programs. If needed, have a family member watch you walk every so often to check your stability. Exercise with a friend. Choose an activity you both enjoy. Try exercises that you can do anytime, anywhere. Here are two examples. Have someone with you when you first try these: Practice walking by placing one foot right in front of the other. Stand up and sit down 10 times. Repeat this throughout the day. Joey Patient Education Copyright 2009 - 2010 Joey except where otherwise noted. Preventing Falls: Moving Safely Using a Cane or Walker (This education is for all patients over 65 regardless of symptoms) Keep the cane away from your feet so you dont trip. A walking aid, such as a cane or walker, can help you stay more independent and avoid falls. Remember to keep your walking aid within easy reach when youre in a chair or in bed. And learn how to use it safely so you dont injure yourself. Using a Cane If you have a stronger side, hold the cane on that side. Get your balance. Move the cane and your weaker leg forward. Support your weight on both the cane and your weaker side. Step with your stronger leg. Start again from step 1. If youre using a folding walker, be sure you know how to lock it open. Check that its locked open before each use. Using a Walker Roll the walker (or lift it, if youre using one without wheels) forward about 12 inches. Step forward with your weaker leg first. Use the walker to help keep your balance. Bring your other foot forward to the center of the walker. Start again from step 1. Helpful Tips Check with your healthcare provider about the right walking aid to use. Ask about a walker with a seat attached. Check the tips of your cane or walker to make sure they have nonskid covers. Move slowly from room to room. Dont mayfield. Sit down to get dressed. Use a melissa pack or backpack to keep your hands free. Get help for jobs that mean climbing, even on a stepstool. Joey Patient Education Copyright 2008 - 2010 Joey except where otherwise noted. Treating Urinary Incontinence in Men (This education is for all patients over 65 regardless of symptoms) You can't always control the release of urine. You may leak urine. Or you may not be able to hold your urine until you can get to a bathroom. This is called urinary incontinence. The problem can be managed. Talk to your doctor about your treatment options. Taking Medications Prescription medications may help you. They may: Help the sphincter to work better. (This is the muscle that closes to keep urine from leaking out of the bladder.) Help stop the bladder from joby too often to push urine out. Help the bladder muscles contract with more force. Help relax the sphincter muscle and allow urine to flow more freely. Making Changes to Your Routine Certain changes in your daily routine may help. These include: Avoiding caffeine and alcohol. Using timed voiding. This is following a schedule for drinking fluids and urinating. Doing Kegel exercises daily. These exercises involve tightening the muscles in your sphincter and around your bladder to help strengthen them. Your doctor can explain how to do them. Using a Catheter A catheter is a narrow tube that is inserted through the urethra into the bladder. It drains urine.A condom catheter covers the penis. It channels urine into a collection bag. It is worn most of thetime. Intermittent catheterization means inserting a catheter to drain the bladder, then removing it. This is done on a regular schedule. Having Surgery If other options don't work, surgery may be recommended. If surgery is an option, your healthcare provider can discuss it with you and explain its risks and benefits. Healing After Prostate Surgery Surgery on the prostate gland can cause incontinence. Most often, the incontinence is only for a short time. It clears up when healing is complete. Very rarely, prostate surgery can result in permanent incontinence. documented in this encounter Progress Notes * Teofilo Krishnamurthy, DO - 09/27/2024 4:03 PM EST SUBJECTIVE: Emmanuel Hung is a 84 year old male. 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 Chronic shortness of breath has worsened slightly since cough started. He has fatigue and nasal drainage as well. Memory loss is stable. He hasdark stool foa few weeks. He takes Pepto Bismol every 2-3 days. Appetite is good and weight is stable. He wears oxygen 3 L at all times. He does not have chest pain. 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 Dissolve one heaping tablespoon in 8 ounces of water or juice. 1 Bottle 2 Wheat Dextrin (BENEFIBER) powder Take by mouth daily. Cyanocobalamin (VITAMIN B-12) 1000 MCG Tablet Take 1 Tablet by mouth in the morning. Diclofenac Sodium 1 % External Gel apply 2 grams to affected area four times a day NEEDED FOR PAIN 300 g 5 CPAP every night at bedtime . Fluoridex 1.1 % Dental Paste (Sodium Fluoride) Take by mouth 1 Application Dosing Unit daily . Vitamin C 500 MG Oral Tablet Chewable Take 1 Tablet by mouth in the morning. oxygen IN GAS Administer into nostril 3 L/min(Oxygen) continuous . 1 Each 0 Vitamin D3 50 MCG (2000 UT) Oral Capsule Take 1 Capsule by mouth in the morning. 30 Capsule 5 Calcium Citrate Plus Oral Tablet Take 1 Tablet by mouth in the morning. Potassium Citrate ER 10 MEQ (1080 MG) Oral Tablet Extended Release (Urocit-K) TAKE ONE TABLET BY MOUTH THREE TIMES A DAY 300 Tablet 3 Omeprazole 20 MG Oral Capsule Delayed Release (PriLOSEC) TAKE ONE CAPSULE BY MOUTH EVERY DAY 100 Capsule 3 amLODIPine Besylate 5 MG Oral Tablet (Norvasc) take 1 tablet by mouth every morning 90 Tablet 3 Finasteride 5 MG Oral Tablet (Proscar) Take one tablet by mouth every day 90 Tablet 3 Tamsulosin HCl 0.4 MG Oral Capsule (Flomax) Take one capsule by mouth every day 90 Capsule 3 Gabapentin 100 MG Oral Capsule (Neurontin) TAKE 1 CAPSULE BY MOUTH IN THE MORNING AND 1 CAPSULE BY MOUTH AT NOON AND 1 CAPSULE BY MOUTH BEFORE BEDTIME 90 Capsule 5 Trelegy Ellipta 100-62.5-25 MCG/ACT Aerosol Powder Breath Activated (Yxswpbgkrfo-Bcomjwhrwajx-Rgdjmyfcqq) Inhale 1 Puff by mouth daily. 180 Each 0 Losartan Potassium 25 MG Oral Tablet (Cozaar) TAKE ONE TABLET BY MOUTH IN THE MORNING 100 Tablet 1 Donepezil HCl 10 MG Oral Tablet (Aricept) TAKE ONE TABLET BY MOUTH BEFORE BEDTIME WITH LARGEST MEALOF THE DAY 100 Tablet 3 traMADol HCl 50 MG Oral Tablet (Ultram) Take 1 Tablet by mouth 2 times a day as needed for Pain, Severe. 60 Tablet 0 Mirtazapine 7.5 MG Oral Tablet (Remeron) TAKE 1 TABLET BY MOUTH AT BEDTIME 90 Tablet 1 predniSONE 20 MG Oral Tablet (Deltasone) Take 1 Tablet by mouth in the morning for 5 days. 5 Tablet0 Classics Rolling Walker Use as directed. Light, seat with brakes. 1 Each 0 No current facility-administered medications for this visit. The patient's medication list was reviewed and updated as needed. 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 repeat in 6 mos BPH without obstruction/lower urinary tract symptoms Calculus of kidney COPD, moderate (HCC) 10/18/2003 Diverticulitis of colon Esophageal reflux Generalized osteoarthritis OAB (overactive bladder) 04/11/2022 Shingles 2017 Vertebral fracture Past Surgical History: Procedure Laterality Date ANESTHESIA FOR SKIN SURGERY, NECK cyst ANKLE ARTHROSCOPY/SURGERY ARTHROSCOPY OF JOINT Right 07/02/2017 Suprascapular Nerve Decompression performed by Gael Stratton Jr., MD at OR [facility] COLONOSCOPY THRU STOMA, W/BIOPSY 03/18/2013 adenomatous polyps COLONOSCOPY, DIAGNOSTIC (RECTUM) 02/16/2007 repeat in 5 years COLONOSCOPY, DIAGNOSTIC (RECTUM) 07/19/2012 tubulovillous adenoma w/ high grade dysplasia repeat in 6 mos COLONOSCOPY, DIAGNOSTIC (RECTUM) 04/10/2014 diverticulosis, repeat 3 yrs/done @ [facility] COLONOSCOPY, DIAGNOSTIC (RECTUM) 01/30/2017 diverticulosis, repeat 3 yrs/COLONOSCOPY FLEXIBLE PROXIMAL DIAGNOSTIC performed by Juanpablo Valencia MD at ENDOSCOPY [facility] COLONOSCOPY, DIAGNOSTIC (RECTUM) 07/11/2020 diverticulosis / COLONOSCOPY FLEXIBLE PROXIMAL DIAGNOSTIC performed by Juanpablo Valencia MD at ENDOSCOPY [facility] COLONOSCOPY, SURGERY REFERRAL OP 2002 due 2007 EGD, FLEXIBLE, DIAGNOSTIC 05/23/2015 inflammation on bx, eso stricture/[facility] EGD, FLEXIBLE, DIAGNOSTIC 01/30/2017 chronic esophagitis/ESOPHAGOGASTRODUODENOSCOPY (EGD), FLEXIBLE, TRANSORAL, DIAGNOSTIC performed by Juanpablo Valencia MD at ENDOSCOPY [facility] EGD, FLEXIBLE, W/BIOPSY 03/07/2009 med hiatal hernia, bx show no evidence of significant gastritis or infection w/ H pylori FUSION OF GREAT TOE JOINT 2002 LAPAROSCOPY; CHOLECYSTECTOMY 01/05/2016 Dr. Byrnes LAPAROSCOPY; REPAIR INITIAL INGUINAL HERNIA Left 10/31/2019 LEG/ANKLE SURGERY NEC 12/2009 left ankle replacement with ORIF of medial malleolus NERVOUS SYSTEM SURGERY NEC Right 07/02/2017 Suprascapular Nerve Decompression performed by Gael Stratton Jr., MD at OR [facility] REMOVE CATARACT, INSERT LENS PROSTH Left 12/26/2021 Left EXTRACAPSULAR CATARACT REMOVAL WITH INTRAOCULAR LENS performed by Saurav Cohen MD at OR [facility] REMOVE CATARACT, INSERT LENS PROSTH Right 01/09/2022 Right EXTRACAPSULAR CATARACT REMOVAL WITH INTRAOCULAR LENS performed by Saurav Cohen MD at OR [facility] REPAIR RUPTURED ROTATOR CUFF, CHRON Right 07/02/2017 Mini Open Chronic Rotator Cuff Repair performed by Gael Stratton Jr., MD at OR [facility] SHOULDER ARTHROSCOPY SURGERY Left 07/02/2017 ARTHROSCOPY SHOULDER DISTAL CLAVICLE RESECTION performed by Gael Stratton Jr., MD at OR [facility] SHOULDER ARTHROSCOPY/DECOMPRESSION Left 07/02/2017 ARTHROSCOPY SHOULDER SUBACROMIAL DECOMPRESSION performed by Gael Stratton Jr., MD at OR [facility] Review of patient's allergies indicates: No Known Allergies Review of Systems Constitutional: Positive for fatigue. Negative for appetite change, chills, fever and unexpected weight change. HENT: Positive for congestion, postnasal drip and rhinorrhea. Negative for sinus pressure, sore throat and trouble swallowing. Respiratory: Positive for cough and shortness of breath. Negative for wheezing. Cardiovascular: Negative for chest pain, palpitations and leg swelling. Gastrointestinal: Negative for abdominal pain, blood in stool, constipation, diarrhea, nausea and vomiting. Genitourinary: Positive for frequency. Negative for dysuria. Nocturia unchanged Musculoskeletal: Positive for arthralgias, back pain and gait problem. Neurological: Positive for weakness. Negative for dizziness, syncope and headaches. Psychiatric/Behavioral: Positive for decreased concentration. Negative for confusion and sleep disturbance. OBJECTIVE: BP 114/68 (BP Site: Left Arm, BP Position: Sitting, BP Cuff Size: Regular) | Pulse 68 | Temp 97.6 F (36.4 C) (Tympanic) | Resp 14 | Ht 5' 8.75" (1.746 m) | Wt 195 lb 9.6 oz (88.7 kg) | SpO2 95% |BMI 29.10 kg/m | BSA 2.07 m Physical Exam Vitals and nursing note reviewed. Constitutional: General: He is not in acute distress. Appearance: Normal appearance. He is not toxic-appearing. HENT: Head: Normocephalic and atraumatic. Cardiovascular: Rate and Rhythm: Normal rate and regular rhythm. Heart sounds: Normal heart sounds. No murmur heard. No gallop. Pulmonary: Effort: Pulmonary effort is normal. Breath sounds: Normal breath sounds. No wheezing, rhonchi or rales. Abdominal: General: Bowel sounds are normal. There is no distension. Palpations: Abdomen is soft. Tenderness: There is no abdominal tenderness. Musculoskeletal: Right lower leg: No edema. Left lower leg: No edema. Neurological: Mental Status: He is alert. Mental status is at baseline. Motor: No weakness. Gait: Gait normal. Psychiatric: Cognition and Memory: Cognition is impaired. Memory is impaired. PLAN AND ASSESSMENT: Viral upper respiratory tract infection (Primary) - INFLUENZA A/B RSV SARS-COV2,PCR; Future; Expected date: 09/27/2024 - INFLUENZA A/B RSV SARS-COV2,PCR - predniSONE 20 MG Oral Tablet (Deltasone); Take 1 Tablet by mouth in the morning for 5 days. COPD, group B, by GOLD 2017 classification (HCC) Continue Trelegy,and Oxygen Chronic respiratory failure with hypoxia (HCC) Continue Oxygen 3 L HTN, goal below 150/90 Continue Losartan and Amlodipine BPH with obstruction/lower urinary tract symptoms Continue Finasteride and Tamsulosin MCI (mild cognitive impairment) Continue Donepezil Gastroesophageal reflux disease without esophagitis Continue Omeprazole Degeneration of intervertebral disc of lumbar region with discogenic back pain Continue Tramadol B12 deficiency Continue oral B 12 PAUL (generalized anxiety disorder) Continue Mirtazapine Other atherosclerosis of [place] arteries of extremities, bilateral legs (HCC) Obstructive sleep apnea of adult OAB (overactive bladder) Risk and functional assessment Follow Up: Return in about 7 weeks (around 11/14/2024), or if symptoms worsen or fail to improve. Teofilo Krishnamurthy DO 4:03 PM 09/27/2024 documented in this encounter Nursing Notes * Bessy Herndon LPN - 09/27/2024 2:22 PM EST Patient here for acute visit. States he is tired, weak, losing control of his body. States it was worsened over the last week. Slight increase in shortness of breath. Continuous runny nose, continuous phlegm in his throat. Coughing up phlegm in the morning. Feels like he has a cold. Denies sore throat. Denies nausea or vomiting. Denies dizziness. Denies changes in urination. Denies chest pain. Denies headache. Reports he is having black stools. Takes pepto bismol every 2-3 days. documented in this encounter Plan of Treatment Upcoming Encounters Date Type Department Care Team (Late st Contact Info) Description 11/14/2024 10:40 AM EST Office Visit Family Practice [address] [place] [address] [address] [place] [address] Teofilo Krishnamurthy, [address] [place] [address] 02/22/2025 10:40 AM EDT Office Visit Rheumatology [place] [address] [place] [address] Best Wilkins MD [address] [place] [address] Pending Results Name Type Priority Associated Diagnoses Date /Time INFLUENZA A/B RSV SARS-COV2,PCR Lab Routine Viral upper respiratory tract infection 09/27/2024 2:41 PM EST Scheduled Orders Name Type Priority Associated Diagnoses Orde r Schedule INFLUENZA A/B RSV SARS-COV2,PCR Lab Routine Viral upper respiratory tract infection Expected: 09/27/2024 (Approximate), Expires: 09/27/2025 Health Maintenance Due Date Last Done Comments [...] 07/07/2023, 06/25/2022, Additional history exists Pneumococcal Vaccine: 65+ Years Completed 07/12/2024, 01/31/2015, 11/04/2004 HPV (Gardasil) [...] this encounter Medical Devices Implanted Type Area Carpet Cutter Device Identifier Shelf Expiration Date Model / Serial / Lot Cor[employer]urisyn Medical [employer] Composite X5 - [id number] Implanted:Qty: 3 on 07/02/2017 by Gael Stratton MD at OR [facility] Left: Shoulder [employer] 02/01/2019 [id number] / / [id number] [place] 4.5x24mm - [id number] Implanted:Qty: 3 on 07/02/2017 by Gael Stratton MD at OR [facility] Left: Shoulder [employer] 02/01/2019 [id number] / / [id number] Lens Intraoc 19.0 - [id number] - [id number] Implanted:Qty: 1 on 12/26/2021 by Saurav Cohen MD at OR [facility] Left: Eye [employer] 10/04/2026 [id number] / [id number] / [id number] Lens Intraoc 19.0 - [id number] - [id number] Implanted:Qty: 1 on 01/09/2022 by Saurav Cohen MD at OR [facility] Right: Eye [employer] 10/04/2026 [id number] / [id number] / [id number] documented as of this encounter Visit Diagnoses Diagnosis Viral upper respiratory tract infection- Primary Acute upper respiratory infections of unspecified site COPD, group B, by GOLD 2017 classification (HCC) Chronic respiratory failure with hypoxia (HCC) Chronic respiratory failure HTN, goal below 150/90 BPH with obstruction/lower urinary tract symptoms Hypertrophy of prostate with urinary obstruction and other lower urinary tract symptoms (LUTS) MCI (mild cognitive impairment) Mild cognitive impairment, so stated Gastroesophageal reflux disease without esophagitis Esophageal reflux Degeneration of intervertebral disc of lumbar region with discogenic back pain B12 deficiency Other B-complex deficiencies Dark stools Nonspecific abnormal finding in stool contents PAUL (generalized anxiety disorder) Generalized anxiety disorder Other atherosclerosis of [place] arteries of extremities, bilateral legs (HCC) Obstructive sleep apnea of adult Obstructive sleep apnea (adult) (pediatric) OAB (overactive bladder) Hypertonicity of bladder Risk and functional assessment Screening for unspecified condition documented in this encounter Care Teams Cloth Doffer Relationship Specialty Start Date End Date Teofilo Krishnamurthy DO [address] [place] [address] PCP - General Internal Medicine 03/17/24 documented as of this encounter
--- OUTSIDE RECORDS SUMMARY | 2024-11-25 12:21 | External Medical Summary | Summary of Care ---
Author Name Unknown Organization [facility] Address [address] [place] [address] Phone [phone] Care Team Providers Care Measurement Coordinator Name Role Phone Teofilo Krishnamurthy DO Primary Care Provider [phone] Reason for Referral * Evaluate & Treat - Unlimited Visits (Within 10 days (routine)) - Authorized Specialty Diagnoses / Procedures Referred By Fito phelan Referred To Contact Physical Therapy / Physical Medicine And Rehab Diagnoses Leg weakness, bilateral Degeneration of intervertebral disc of lumbar region with discogenic back pain Teofilo Krishnamurthy DO [address] [place] [address] Phone: tel: fax: Referral ID Status Reason Start Date Expiration Date Visits Requested Visits Authorized [id number] Authorized Specialty Services Required 11/14/[phone] Question Answer Referral Priority Within 10 days (routine) Where should this appointment be scheduled? [facility] Reason for Visit * Reason Comments Follow Up Encounter Details Date Type Department Care Team (Latest Contact Info) Description 11/14/2024 10:40 AM EST Office Visit Family Practice [address] [place] [address] [place] [phone] Teofilo Krishnamurthy DO [address] [place] [address] COPD, group B, by GOLD 2017 classification (HCC)*; Chronic respiratory failure with hypoxia (HCC); PAUL (generalized anxiety disorder); HTN, goal below 150/90; Senile osteoporosis; Leg weakness, bilateral; BPH with obstruction/lower urinary tract symptoms; Gastroesophageal reflux disease without esophagitis; Degeneration of intervertebral disc of lumbar region with discogenic back pain; MCI (mild cognitive impairment); OAB (overactive bladder); Other atherosclerosis of [place] arteries of extremities, bilateral legs ([facility]); Secondary erythrocytosis; B12 deficiency Allergies No known active allergiesdocumented as of this encounter (statuses as of 11/14/2024) Medications Polyethylene Glycol 3350 17 GM/SCOOP Oral [...] mouth in the morning. Active oxygen IN GASIndications:PROMOTIONS REPRESENTATIVE D, group B, by GOLD 2017 classification ([facility]) Administer into nostril 3 L/min(Oxygen) continuous . 1 Each 07/04/20 22 Active Vitamin D3 50 MCG (2000 UT) [...] MOUTH IN THE MORNING 100 Tablet 1 11/10/2024 11:54 AM EST 08/01/20 24 Active Donepezil HCl 10 MG [...] idinium-Vilanterol ) Inhale 1 Puff by mouth daily 180 Each 11/03/2024 5:50 PM EST 10/27/19 25 Active traMADol HCl 50 MG Oral Tablet (Ultram)Indication s:Generalized osteoarthritis TAKE 1 TABLET BY MOUTH 2 TIMES A DAY NEEDED FOR PAIN, SEVERE. 60 Tablet 11/09/19 25 Active documented as of this encounter (statuses as of 11/14/2024) Active Problems Problem Noted Date Diagnosed Date Senile osteoporosis 11/14/2024 Other atherosclerosis of [place] arteries of [...] as of this encounter (statuses as of 11/14/2024) Resolved Problems Problem Noted Date Diagnosed Date [...] as of this encounter (statuses as of 11/14/2024) Immunizations Name Administration Dates Next Due COVID-19 mRNA, LNP-s, No Pre serve, 2-Dose Series (Hitch) 08/14/2021,12/11/2020,11/13/2020 COVID-19, LNP-s, No Preserve , Neal-sucrose, Ages 12+ (Pfizer) 04/22/2022 COVID-19, MRNA-LNP, PF, 30 M CG/0.3 mL, 12 YRS AND ABOVE, IM (Razmir-Comirnat) 07/12/2024 Covid-19, Mrna, Lnp-s, Pf, B ivalent, 30 Mcg, IM, 12 yrs and above (Pfizer) 10/07/2022 Pneumococcal Conjugate Vacc, 13 Valent (Prevnar) 01/31/2015 Pneumococcal Conjugate Vacci ne, 20-valent ([id number]) 07/12/2024 RSV Vac., Bivalent, Perfusio n F, [...] 11/09/2023 Does the household have a re lar source of income? (Household - for ages [...] Sign Reading Time Taken Comments Blood Pressure 116/60 11/14/2024 10:33 AM EST Pulse 64 11/14/2024 10:33 AM EST Temperature 36.3 C (97.4 F) 11/14/2024 10:[address] Respiratory Rate 16 11/14/2024 10:33 AM EST Oxygen Saturation 94% 11/14/2024 10:33 AM EST 3 LPM Inhaled Oxygen Concentration - - Weight 87.2 kg (192 lb 3.2 oz) 11/14/2024 10:33 AM EST Height 174.6 cm (5' 8.75") 11/14/2024 10:[address] Body Mass Index 28.59 11/14/2024 10:33 AM EST documented in this encounter Progress Notes * Teofilo Krishnamurthy, DO - 11/14/2024 11:13 AM EST SUBJECTIVE: Emmanuel Hung is a 84 year old male. 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 He has bilateral leg weakness and does not do much activity. No chest pain. Chronic shortness of breath continues to worsen slowly. Weight is stable and appetite is good. Chronic back pain does not radiate to his legs and the pain is stable. Patient Active Problem List Diagnosis GENERAL OSTEOARTHROSIS [...] PAUL (generalized anxiety disorder) Other atherosclerosis of [place] arteries of extremities, bilateral legs (HCC) Senile osteoporosis Current Outpatient Medications Medication Sig Dispense Refill Polyethylene Glycol 3350 17 GM/SCOOP Oral Powder Take 17 g by mouth every evening. Dissolve one heaping tablespoon in 8 ounces of water or juice. 1 Bottle 2 Wheat Dextrin (BENEFIBER) powder Take by mouth daily. Cyanocobalamin (VITAMIN B-12) 1000 MCG Tablet Take 1 Tablet by mouth in the morning. CPAP every night at bedtime . Vitamin C 500 MG Oral Tablet Chewable Take 1 Tablet by mouth in the morning. Vitamin D3 50 MCG (2000 UT) Oral [...] Ellipta 100-62.5-25 MCG/ACT Aerosol Powder Breath Activated (Jfzpzmgtoeg-Grqtasehrubx-Sdxgipiesw) Inhale 1 Puff by mouth daily. 180 Each 0 Losartan Potassium 25 MG Oral Tablet (Cozaar) TAKE ONE TABLET BY MOUTH IN THE MORNING 100 Tablet 1 Donepezil HCl 10 MG Oral Tablet (Aricept) TAKE ONE TABLET BY MOUTH BEFORE BEDTIME WITH LARGEST MEALOF THE DAY 100 Tablet 3 Mirtazapine 7.5 MG Oral Tablet (Remeron) TAKE 1 TABLET BY MOUTH AT BEDTIME 90 Tablet 1 traMADol HCl 50 MG Oral Tablet (Ultram) TAKE 1 TABLET BY MOUTH 2 TIMES A DAY NEEDED FOR PAIN, SEVERE. 60 Tablet 0 Diclofenac Sodium 1 % External Gel apply 2 grams to affected area four times a day NEEDED FOR PAIN 300 g 5 Fluoridex 1.1 % Dental Paste (Sodium Fluoride) Take by mouth 1 Application Dosing Unit daily . oxygen IN GAS Administer into nostril 3 L/min(Oxygen) continuous . 1 Each 0 Classics Rolling Walker Use as directed. Light, seat with brakes. 1 Each 0 Trelegy Ellipta 100-62.5-25 MCG/ACT Aerosol Powder Breath Activated (Ilcweulphcq-Klrgjhrrbnvv-Varanaonzn) Inhale 1 Puff by mouth daily 180 Each 0 No current facility-administered medications for [...] Generalized osteoarthritis OAB (overactive bladder) 04/11/2022 Shingles 2016 Vertebral fracture Past Surgical History: Procedure Laterality Date ANESTHESIA FOR SKIN SURGERY, NECK cyst ANKLE ARTHROSCOPY/SURGERY ARTHROSCOPY OF JOINT Right 07/02/2017 Suprascapular Nerve Decompression performed by Gael Stratton Jr., MD at OR [facility] COLONOSCOPY THRU STOMA, W/BIOPSY 03/18/2013 adenomatous polyps COLONOSCOPY, DIAGNOSTIC (RECTUM) 02/16/2007 repeat in 5 years COLONOSCOPY, DIAGNOSTIC (RECTUM) 07/19/2012 tubulovillous adenoma w/ high grade dysplasia repeat in 6 mos COLONOSCOPY, DIAGNOSTIC (RECTUM) 04/10/2014 diverticulosis, repeat 3 yrs/done @ [facility] COLONOSCOPY, DIAGNOSTIC (RECTUM) 01/30/2017 diverticulosis, repeat 3 yrs/COLONOSCOPY FLEXIBLE PROXIMAL DIAGNOSTIC performed by Juanpablo Valencia MD at ENDOSCOPY [facility] COLONOSCOPY, DIAGNOSTIC (RECTUM) 07/11/2020 diverticulosis / COLONOSCOPY FLEXIBLE PROXIMAL DIAGNOSTIC performed by Juanpablo Valencia MD at ENDOSCOPY [facility] COLONOSCOPY, SURGERY REFERRAL OP 2002 due 2007 EGD, FLEXIBLE, DIAGNOSTIC 05/23/2015 inflammation on bx, eso stricture/[facility] EGD, FLEXIBLE, DIAGNOSTIC 01/30/2017 chronic esophagitis/ESOPHAGOGASTRODUODENOSCOPY (EGD), FLEXIBLE, TRANSORAL, DIAGNOSTIC performed by Juanpablo Valencia MD at ENDOSCOPY [facility] EGD, FLEXIBLE, W/BIOPSY 03/07/2009 med hiatal hernia, [...] performed by Gael Stratton Jr., MD at [facility] REMOVE CATARACT, INSERT LENS PROSTH Left 12/26/2021 Left EXTRACAPSULAR CATARACT REMOVAL WITH INTRAOCULAR LENS performed by Saurav Cohen MD at [facility] REMOVE CATARACT, INSERT LENS PROSTH Right 01/09/2022 Right EXTRACAPSULAR CATARACT REMOVAL WITH INTRAOCULAR LENS performed by Saurav Cohen MD at OR [facility] REPAIR RUPTURED ROTATOR CUFF, CHRON Right 07/02/2017 Mini Open Chronic Rotator Cuff Repair performed by Gael Stratton Jr., MD at OR [facility] SHOULDER ARTHROSCOPY SURGERY Left 07/02/2017 ARTHROSCOPY SHOULDER DISTAL CLAVICLE RESECTION performed by Gael Stratton Jr., MD at [facility] SHOULDER ARTHROSCOPY/DECOMPRESSION Left 07/02/2017 ARTHROSCOPY SHOULDER SUBACROMIAL DECOMPRESSION performed by Gael Stratton Jr., MD at OR [facility] Review of patient's allergies indicates: No Known Allergies Review of Systems Constitutional: Positive for fatigue. Negative for appetite change and unexpected weight change. HENT: Negative for congestion, sore throat and trouble swallowing. Respiratory: Positive for shortness of breath. Negative for cough and wheezing. Cardiovascular: Negative for chest pain, palpitations and leg swelling. Gastrointestinal: Negative for abdominal pain, blood in stool, constipation, diarrhea, nausea and vomiting. Genitourinary: Negative for dysuria, frequency and hematuria. Nocturia unchanged Musculoskeletal: Positive for back pain and gait problem. Neurological: Positive for weakness (bilateral leg weakness). Negative for dizziness, syncope and headaches. Psychiatric/Behavioral: Positive for decreased concentration. Negative for confusion, dysphoric mood and sleep disturbance. OBJECTIVE: BP 116/60 | Pulse 64 | Temp 97.4 F (36.3 C) | Resp 16 | Ht 5' 8.75" (1.746 m) | Wt 192 lb 3.2 oz (87.2 kg) | SpO2 94% Comment: 3 LPM | BMI 28.59 kg/m | BSA 2.06 m Physical Exam Vitals and nursing note [...] edema. Neurological: Mental Status: He is alert. Motor: Weakness present. Gait: Gait abnormal. Psychiatric: Cognition and Memory: Cognition is impaired. Memory is impaired. Component Latest Ref Rng 09/27/2024 BUN 6 - 20 mg/dL 15 CREATININE 0.6 - 1.2 mg/dL 1.0 EGFR >=60 mL/min 74 SODIUM 135 - 146 mmol/L 140 POTASSIUM 3.5 - 5.1 mmol/L 4.4 CHLORIDE 98 - 107 mmol/L 103 CO2 22 - 32 mmol/L 25 ANION GAP 7 - 15 mmol/L 12 GLUCOSE 70 - 120 mg/dL 80 Albumin 3.8 - 5.0 g/dL 4.2 AST 10 - 50 U/L 20 Alkaline Phosphatase 35 - 130 U/L 91 Bilirubin, Total <=1.2 mg/dL 0.7 CALCIUM 8.4 - 10.2 mg/dL 9.4 Protein 6.0 - 8.3 g/dL 7.2 ALT 10 - 50 U/L 15 WBC 4.00 - 10.80 K/uL 6.29 Neutrophils % 40.0 - 75.0 % 68.2 Lymphocytes % 18.0 - 42.0 % 22.4 Monocytes % 1.0 - 11.0 % 8.3 Eosinophils % 0.0 - 6.0 % 0.6 Basophils % 0.0 - 2.0 % 0.5 Absolute Neutrophils 1.80 - 7.70 K/uL 4.29 Absolute Lymphocytes 1.00 - 4.80 K/ul 1.41 Absolute Monocytes 0.00 - 1.10 K/uL 0.52 Absolute Eosinophils 0.00 - 0.70 K/uL 0.04 Absolute Basophils 0.00 - 0.20 K/uL 0.03 WBC 4.00 - 10.80 K/uL 6.29 RBC 4.50 - 5.25 M/uL 5.04 HGB 14.0 - 16.8 g/dL 16.3 HCT 40.0 - 48.4 % 48.7 (H) MCV 82.0 - 99.5 fL 96.6 MCH 27.0 - 34.0 pg 32.3 MCHC 32.0 - 36.0 g/dL 33.5 RDW 11.5 - 15.5 % 13.8 PLT 140 - 400 K/uL 167 MPV 6.6 - 11.1 fL 10.7 Legend: (H) High PLAN AND ASSESSMENT: COPD, group B, by GOLD 2017 classification (HCC) (Primary) Continue Oxygen and Trelegy Chronic respiratory failure with hypoxia (HCC) Continue oxygen PAUL (generalized anxiety disorder) Continue Mirtazapine HTN, goal below 150/90 Continue Losartan Senile osteoporosis Leg weakness, bilateral - PHYSICAL THERAPY REFERRAL OP BPH with obstruction/lower urinary tract symptoms Continue Tamsulosin, and Finasteride Gastroesophageal reflux disease without esophagitis Continue Omeprazole Degeneration of intervertebral disc of lumbar region with discogenic back pain - PHYSICAL THERAPY REFERRAL OP Continue Tramadol, and Gabapentin MCI (mild cognitive impairment) Continue Donepezil OAB (overactive bladder) Other atherosclerosis of [place] arteries of extremities, bilateral legs (HCC) Secondary erythrocytosis B12 deficiency - VITAMIN B12; Future; Expected date: 11/14/2024 - VITAMIN B12 Follow-up: Return in about 3 months (around 02/11/2025), or if symptoms worsen or fail to improve. |Check-out note: Schedule Physical Therapy Teofilo Krishnamurthy DO 11:13 AM 11/14/2024 documented in this encounter Nursing Notes * Opal Trivedi LPN - 11/14/2024 10:32 AM EST Pain left groin, states legs are getting weaker. States nose runs all the time documented in this encounter Plan of Treatment Upcoming Encounters Date Type Department Care Team (Late st Contact Info) Description 02/14/2025 1:40 PM EDT Office Visit Family Practice [address] [facility] [address] [place] [address] Te[facility]ilo [facility] [address] [facility] [address] 02/22/2025 10:40 AM EDT Office Visit Rheumatology [facility] [address] [place] [phone] Best Wilkins MD [address] [place] [address] Pending Results Name Type Priority Associated Diagnoses Date /Time VITAMIN B12 Lab Routine B12 deficiency 11/14/2024 11:12 AM EST Scheduled Orders Name Type Priority Associated Diagnoses Orde r Schedule VITAMIN B12 Lab Routine B12 deficiency Expected: 11/14/2024 (Approximate), Expires: 11/14/2025 Scheduled Referrals Name Type Priority Associated Diagnoses Orde r Schedule PHYSICAL THERAPY REFERRAL OP Referral Within 10 days (routine) Leg weakness, bilateral Degeneration of intervertebral disc of lumbar region with discogenic back pain Ordered: 11/14/2024 Health Maintenance Due Date Last Done Comments Alpha-1 Antitrypsin 1958 Adult Wellness Visit 01/03/2025 01/04/2024, 12/30/2022, 07/18/2021 Depression Screening 01/03/2025 01/04/2024 Albumin/Creatinine Ratio 06/25/2025 06/25/2022 O2 ASSESSMENT COMPLETED IN PAST YEAR FOR COPD 11/14/2025 11/14/2024 DXA Scan 02/21/2026 02/22/2024, 04/2018, 07/21/2016, Additional history exists DTap/Tdap Vaccines (3 - Td or Tdap) 09/11/2030 09/11/2020, 04/23/2015, 02/04/2006 Zoster Vaccines Completed 02/17/2020, 11/06, 04/14/2012 VITAMIN D LEVEL ONCE IN A LIFETIME-USE SMARTSET# [id number] Completed 08/12/2022, 02/08/2018, 04/26/2014, Additional history exists COVID-19 Vaccine Completed 07/12/2024, 12/2022, 04/22/2022, Additional [...] this encounter Medical Devices Implanted Type Area Head Of Housekeeping Device Identifier Shelf Expiration Date Model / Serial / Lot [employer] X5 - [id number] Implanted:Qty: 3 on 07/02/2017 by Gael Stratton MD at OR [facility] Left: Shoulder [employer] 02/01/2019 [id number] / / [id number] [place] Pushlock 4.5x24mm - [id number] Implanted:Qty: 3 on 07/02/2017 by Gael Stratton MD at OR [facility] Left: Shoulder [employer] 02/01/2019 AR-[id number] / / [id number] Lens Intraoc 19.0 - [id number] - [id number] Implanted:Qty: 1 on 12/26/2021 by Saurav Cohen MD at OR [facility] Left: Eye [employer] 10/04/2026 [id number] / [id number] / [id number] Lens Intraoc 19.0 - [id number] - [id number] Implanted:Qty: 1 on 01/09/2022 by Saurav Cohen MD at OR [facility] Right: Eye [employer]OM[employer] 10/04/2026 [id number] / [id number] / [id number] documented as of this encounter Visit Diagnoses Diagnosis COPD, group B, by GOLD 2017 classification (HCC)- Primary Chronic respiratory failure with hypoxia (HCC) Chronic respiratory failure PAUL (generalized anxiety disorder) Generalized anxiety disorder HTN, goal below 150/90 Senile osteoporosis Leg weakness, bilateral Other musculoskeletal symptoms referable to limbs BPH with obstruction/lower urinary tract symptoms Hypertrophy of prostate with urinary obstruction and other lower urinary tract symptoms (LUTS) Gastroesophageal reflux disease without esophagitis Esophageal reflux Degeneration of intervertebral disc of lumbar region with discogenic back pain MCI (mild cognitive impairment) Mild cognitive impairment, so stated OAB (overactive bladder) Hypertonicity of bladder Other atherosclerosis of [place] arteries of extremities, bilateral legs (HCC) Secondary erythrocytosis Polycythemia, secondary B12 deficiency Other B-complex deficiencies documented in this encounter Care Teams Measurement Coordinator Relationship Specialty Start Date End Date Teofilo Krishnamurthy DO [address] [place] [address] PCP - General Internal Medicine 03/17/24 documented as of this encounter
--- OUTSIDE RECORDS SUMMARY | 2024-11-25 12:22 | External Medical Summary ---
Author Name Unknown Address Unknown Organization [id number]:[facility] [address] [facility] [address] Laboratory Report Ordering Provider Test Date Status GUILHERME ANNE 09/27/2024 13:51:15 Final Observation Date Value Abnormality Reference (Units ) Status BUN 09/27/2024 13:51:15 15 6-20 (mg/dL) Final Creatinine 09/27/2024 13:51:15 1.0 0.6-1.2 (mg/dL) Final Glomerular filtration rate/1.73 sq M.predicted [Volume Rate/Area] in Serum, Plasma or Blood by Creatinine-based formula (CKD-EPI) 09/27/2024 13:51:15 74 >=60 (mL/min) Final eGFR is calculated based on the CKD-EPI 2020 equation. Sodium 09/27/2024 13:51:15 140 135-146 (m mol/L) Final Potassium 09/27/2024 13:51:15 4.4 3.5-5.1 (m mol/L) Final Cl 09/27/2024 13:51:15 103 98-107 (mm ol/L) Final CO2 09/27/2024 13:51:15 25 22-32 (mmo l/L) Final Anion gap 09/27/2024 13:51:15 12 7-15 (mmol /L) Final Glucose 09/27/2024 13:51:15 80 70-120 (mg /dL) Final Albumin 09/27/2024 13:51:15 4.2 3.8-5.0 (g /dL) Final AST (Aspartate aminotransferase) 09/27/2024 13:51:15 20 10-50 (U/L) Final Alk Phos 09/27/2024 13:51:15 91 35-130 (U/ L) Final Bilirubin, Total 09/27/2024 13:51:15 0.7 <=1 .2 (mg/dL) Final Calcium 09/27/2024 13:51:15 9.4 8.4-10.2 ( mg/dL) Final Protein 09/27/2024 13:51:15 7.2 6.0-8.3 (g /dL) Final ALT (Alanine aminotransferase) 09/27/2024 13:51:15 15 10-50 (U/L) Final Performing Location [facility] [place] [address] [facility] [address]
--- OUTSIDE RECORDS SUMMARY | 2024-11-25 12:22 | External Medical Summary ---
Author Name Unknown Address Unknown Organization [id number]:LAB[facility]ATORY [facility] [place] - [address] [facility] [address] Laboratory Report Ordering Provider Test Date Status GUILHERME ANNE 09/27/2024 14:41:22 Final Observation Date Value Abnormality Reference (Units ) Status SARS Coronavirus 2 09/27/2024 14:41:22 Negative N egative Final No SARS-CoV2 Coronavirus RNA detected by PCR (amplified probe).
This express test was developed and its performance characteristics determined by [facility]. It has not been cleared or approved by the U.S. Food and Drug Administration (FDA). FDA does not require this test to go thru premarket FDA review. This test is used for clinical purposes. It should not be regarded as investigational or for research. This laboratory is certified under the Clinical Laboratory Improvement Amendments (CLIA) as qualified to perform high complexity clinical laboratory testing.

This test is a nucleic acid amplification test (NAAT), a reverse transcriptase polymerase chain reaction (RT-PCR) test, or a Centers for Disease Control-acceptable equivalent. The test is performed in a high complexity Clinical Laboratory Improvement Amendments-(CLIA) certified laboratory. The test is acceptable for SARS-CoV-2 diagnosis, surveillance, and travel within the [place] and to most countries. Please check with local testing authorities about requirements before travel.

The validation of bronchial specimens, tracheal aspirates, and sputum for this assay was developed and performance characteristics determined by [facility]. The validation of alternate specimen types has not been cleared or approved by the U.S. Food and Drug Administration (FDA). It has been determined that such clearance is not necessary. Influenza virus A RNA [Prese nce] in Specimen by [facility] with probe detection 09/27/2024 14:41:22 Negative Negative Final No Influenza A RNA detected by PCR (amplified probe) Influenza virus B RNA [Prese nce] in Specimen by GLORY with probe detection 09/27/2024 14:41:22 Negative Negative Final No Influenza B RNA detected by PCR (amplified probe) Respiratory syncytial virus RNA [Identifier] in Specimen by GLORY with probe detection 09/27/2024 14:41:22 Negative Negative Final No Respiratory Syncytial Vir us RNA detected by PCR (amplified probe) Performing Location [address]ATORY [address] [facility] [address]
--- OUTSIDE RECORDS SUMMARY | 2024-11-25 12:22 | External Medical Summary | Summary of Care ---
Author Name Unknown Organization [facility] Address [address] [place] [address] Phone [phone] Care Team Providers Care Automatic Grinding Machine Operator Name Role Phone Dayana Krishnamurthy DO Primary Care Provider [phone] Reason for Visit * Reason Comments eRx-Medication Refill Encounter Details Date Type Department Care Team (Late st Contact Info) Description 09/05/2024 Refill Family Practice [address] [place] [address] [place] [id number] Dayana Krishnamurthy DO [address] [place] [address] GENERAL OSTEOARTHROSIS Allergies No known active allergiesdocumented as of this encounter (statuses as of 09/07/2024) Medications Polyethylene Glycol 3350 17 GM/SCOOP Oral [...] B, by GOLD 2017 classification ([facility]) Administer into nostril 3 L/min(Oxygen) continuous [...] TIMES A DAY 300 Tablet 3 4 1:45 PM EDT 024 2024 Active Omeprazole 20 MG Oral Capsule Delayed Release (PriLOSEC) TAKE ONE CAPSULE BY MOUTH EVERY DAY 100 Capsule 3 4 9:26 AM EDT 024 2024 Active amLODIPine Besylate 5 MG Oral Tablet (Norvasc)Indicati ons:HTN, goal below 150/90 take 1 tablet by mouth every morning 90 Tablet 3 Active Mirtazapine 7.5 MG Oral Tablet (Remeron)Indicati ons:PAUL (generalized anxiety disorder) TAKE 1 TABLET BY MOUTH AT BEDTIME 90 Tablet 1 024 Active Finasteride 5 MG Oral Tablet (Proscar) Take one tablet by mouth every day 90 Tablet 3 4 3:24 PM EDT Active Tamsulosin HCl 0.4 MG Oral Capsule (Flomax) Take one capsule by mouth every day 90 Capsule 3 4 6:26 AM EDT 024 Active Gabapentin 100 MG Oral Capsule (Neurontin)Indica [...] 4 10:05 AM EST 024 2024 Active traMADol HCl 50 MG Oral Tablet (Ultram)Indicatio ns:Generalized osteoarthritis Take 1 Tablet by mouth 2 times a day as needed for Pain, Severe. 60 Tablet Active traMADol HCl 50 MG Oral Tablet (Ultram)Indicatio ns:Generalized osteoarthritis TAKE 1 TABLET BY MOUTH 2 TIMES A DAY NEEDED FOR PAIN, SEVERE. 60 Tablet 024 2023 Discontinued documented as of this encounter (statuses as of 09/07/2024) Active Problems Problem Noted Date Diagnosed Date [...] as of this encounter (statuses as of 09/07/2024) Resolved Problems Problem Noted Date Diagnosed Date [...] as of this encounter (statuses as of 09/07/2024) Immunizations Name Administration Dates Next Due COVID-19 mRNA, LNP-s, No Pre serve, 2-Dose Series ([facility]) 08/14/2021,12/11/2020,11/13/2020 COVID-19, LNP-s, No Preserve , Neal-sucrose, Ages 12+ (Pfizer) 04/22/2022 COVID-19, MRNA-LNP, PF, 30 M CG/0.3 mL, 12 YRS AND ABOVE, IM ([facility]) 07/12/2024 Covid-19, Mrna, Lnp-s, Pf, B ivalent, 30 Mcg, IM, 12 yrs and above ([facility]) 10/07/2022 Pneumococcal Conjugate Vacc, 13 Valent (Prevnar) 01/31/2015 Pneumococcal Conjugate Vacci ne, 20-valent ([id number]) 07/12/2024 RSV Vac., Bivalent, Perfusio n F, [...] Telephone Encounter - Dayana Krishnamurthy DO - 09/07/2024 4:57 PM ESTSigned Prescriptions: Disp Refills traMADol HCl 50 MG Oral Tablet (Ultram) 60 Tab*0 Sig: Take 1 Tablet by mouth 2 times a day as needed for Pain, Severe.Authorizing Provider: DAYANA KRISHNAMURTHY--------- * Telephone Encounter - Dayana Krishnamurthy DO - 09/07/2024 4:57 PM EST I have reviewed the patients controlled substance dispensing history in the Prescription Drug Monitoring Program in compliance with the [facility] regulations before prescribing a controlled substance. Last Tox Screen Results: No results found. However, due to the size of the patient record, not all encounters were searched.Please check Results Review for a complete set of results. Medication is due * Telephone Encounter - Interface, E-Rx Ss Inbound - 09/07/2024 2:16 PM EST Pending Prescriptions: Disp Refills traMADol HCl 50 MG Oral Tablet (Ultram) 60 Tab*0 Sig: Take 1 Tablet by mouth 2 times a day as needed for Pain, Severe. * Telephone Encounter - Shannon Garcia [facility] - 09/06/2024 4:55 PM EST Pending Prescriptions: Disp Refills traMADol HCl 50 MG Oral Tablet (Ultram) 60 Tab*0 Sig: Take 1 Tablet by mouth 2 times a day as needed for Pain, Severe. * Telephone Encounter - Shannon Garcia [facility] - 09/06/2024 4:54 PM EST I have reviewed the patients controlled substance dispensing history in the Prescription Drug Monitoring Program in compliance with the [facility] regulations before prescribing a controlled substance. PDMP checked on 09/06/2024. Pending Prescriptions: Disp Refills traMADol HCl 50 MG Oral Tablet (Ultram) [*60 Tab*0 Sig: Take 1 Tablet by mouth 2 times a day as needed for Pain, Severe. Last Visit: 07/12/2024 (in office), Visit date not found (telemedicine) Next Visit: 09/06/2024 Date medication was last filled: 08/05/24 Date medication is due for refill: 09/04/24 Pharmacy: [id number] [address] [place] [address] Is this request for a controlled substance? Yes and Urine Drug Screen Not completed Toxicology results: No results found. However, due to the size of the patient record, not all encounters were searched.Please check Results Review for a complete set of results. Please approve if appropriate. Thank you, Shannon Garcia, PharmD, JUVE Clinical Pharmacist [facility] ([facility]) 09/06/24 4:54 PM [phone] documented in this encounter Plan of Treatment Upcoming Encounters Date Type Department Care Team (Late st Contact Info) Description 11/14/2024 10:40 AM EST Office Visit Family Practice [address] [facility] 293 [place] [phone] Dayana Krishnamurthy DO [address] [place] [address] 01/06/2025 11:00 AM EDT Nurse Only Family Practice [address] [facility] [address] [place] [address] Opal Preston RN 293 [place] [address] 02/22/2025 10:40 AM EDT Office Visit Rheumatology [place] [address] [place] [address] Best Wilkins MD [address] [place] [address] Health Maintenance Due Date Last Done Comments Alpha-1 Antitrypsin 1958 Adult Wellness Visit 01/03/2025 01/04/2024, 12/30/2022, 07/18/2021 Depression Screening 01/03/2025 01/04/2024 Albumin/Creatinine Ratio 06/25/2025 06/25/2022 O2 ASSESSMENT COMPLETED IN PAST YEAR FOR COPD 07/12/2025 07/12/2024 DXA Scan 02/21/2026 02/22/2024, 11/0 04/2018, 07/21/2016, [...] this encounter Medical Devices Implanted Type Area Radiopharmacist Device Identifier Shelf Expiration Date Model / Serial / Lot Corkscrew Bio Composite X5 - [id number] Implanted:Qty: 3 on 07/02/2017 by Gael Stratton MD at OR [facility] Left: Shoulder [employer] 02/01/2019 AR-1927BCF / / [id number] [place] Pushlock 4.5x24mm - [id number] Implanted:Qty: 3 on 07/02/2017 by Gael Stratton MD at OR [facility] Left: Shoulder [employer] 02/01/2019 [id number]-[id number] / / [id number] Lens Intraoc 19.0 - [id number] - [id number] Implanted:Qty: 1 on 12/26/2021 by Saurav Cohen MD at OR [facility] Left: Eye [employer]USCH [employer] LOMB 10/04/2026 [id number] / [id number] / [id number] Lens Intraoc 19.0 - [id number] - [id number] Implanted:Qty: 1 on 01/09/2022 by Saurav Cohen MD at OR [facility] Right: Eye BAUSCH & LOMB 10/04/2026 [id number] / [id number] / [id number] documented as of this encounter Visit Diagnoses Diagnosis GENERAL OSTEOARTHROSIS Generalized osteoarthrosis, unspecified site documented in this encounter Care Teams Automatic Grinding Machine Operator Relationship Specialty Start Date End Date Dayana Krishnamurthy DO [address] [place] [address] PCP - General Internal Medicine 03/17/24 documented as of this encounter
--- OUTSIDE RECORDS SUMMARY | 2024-11-25 12:22 | External Medical Summary | Summary of Care ---
Author Name Unknown Organization [facility] Address [address] [place] [address] Phone [phone] Care Team Providers Care Wharf Hand Name Role Phone Teofilo Krishnamurthy DO Primary Care Provider [phone] Encounter Details Date Type Department Care Team (Late st Contact Info) Description 09/22/2024 Documentation HEALTH & WELLNESS Zaid Edmonds, Health Product Marketing Specialist Allergies No known active allergiesdocumented as of [...] mouth in the morning. Active oxygen IN GASIndications:DB2 SYSTEMS PROGRAMMER D, group B, by GOLD 2017 classification [...] Pain, Severe. 60 Tablet 09/07/20 24 Active documented as of this encounter (statuses [...] of inactive term Elevated hemoglobin 01/31/2019 05/14/20 Post herpetic neuralgia 10/19/201701/04 Senile osteoporosis 01/19/2017 [...] mRNA, LNP-s, No Pre serve, 2-Dose Series ([facility]) 08/14/2021,12/11/2020,11/13/2020 COVID-19, LNP-s, No Preserve , Neal-sucrose, Ages 12+ (Pfizer) 04/22/2022 COVID-19, MRNA-LNP, PF, 30 M CG/0.3 mL, 12 YRS AND ABOVE, IM ([facility]) 07/12/2024 Covid-19, Mrna, Lnp-s, Pf, B ivalent, 30 Mcg, IM, 12 yrs and above ([facility]) 10/07/2022 Pneumococcal Conjugate Vacc, 13 Valent (Prevnar) 01/31/2015 Pneumococcal Conjugate Vacci ne, 20-valent ([id number]) 07/12/2024 RSV Vac., Bivalent, Perfusio n F, [...] on file documented as of this encounter Progress Notes * Zaid Edmonds, Health Product Marketing Specialist - 09/27/2024 9:49 AM EST Visit Type: Return Wellness Return Visit Type: 1:1 Bike Leg raises Incline chest press Ball squeeze Gas peddle Band row Band twist Hamstring curl Single leg balance Squat Calf raises Lateral kickout Bicep curls 12 reps, 2 sets documented in this encounter Plan of Treatment Upcoming Encounters Date Type Department Care Team (Late st Contact Info) Description 11/14/2024 10:40 AM EST Office Visit Family Practice [address] [place] [address] [place] [address] Teofilo Krishnamurthy, 293 [place] [address] 02/22/2025 10:40 AM EDT Office Visit Rheumatology [facility] [address] [place] [address] Best Wilkins MD [address] [place] [address] Health Maintenance Due Date Last Done Comments [...] this encounter Medical Devices Implanted Type Area Broiler Manager Device Identifier Shelf Expiration Date Model / Serial / Lot Fidel Bio Composite X5 - [id number] Implanted:Qty: 3 on 07/02/2017 by Gael Stratton MD at [facility] Left: Shoulder [employer] 02/01/2019 AR-1927BCF / / [id number] [place] Pushlock 4.5x24mm - [id number] Implanted:Qty: 3 on 07/02/2017 by Gael Stratton MD at [facility] Left: Shoulder [employer] 02/01/2019 AR-1922BC / / [id number] Lens Intraoc 19.0 - [id number] - [id number] Implanted:Qty: 1 on 12/26/2021 by Saurav Cohen MD at OR [facility] Left: Eye BAUSCH & LOMB 10/04/2026 [id number] / [id number] / [id number] Lens Intraoc 19.0 - [id number] - [id number] Implanted:Qty: 1 on 01/09/2022 by Saurav Cohen MD at OR [facility] Right: Eye BAUSCH [employer] LOMB 10/04/2026 [id number] / [id number] / [id number] documented as of this encounter Care Teams Wharf Hand Relationship Specialty Start Date End Date Teofilo Krishnamurthy DO [address] [place] [address] PCP - General Internal Medicine 03/17/24 documented as of this encounter
--- OUTSIDE RECORDS SUMMARY | 2024-11-25 12:22 | External Medical Summary | Summary of Care ---
Author Name Unknown Organization [facility] Address [address] [place] [address] Phone [phone] Care Team Providers Care Airdox Fitter Name Role Phone Teofilo Krishnamurthy DO Primary Care Provider [phone] Reason for Visit * Reason Onset Date Comments Advice 09/27/202409/27 Encounter Details Date Type Department Care Team (Late st Contact Info) Description 09/27/2024 Telephone Family Practice 65 [facility] [place] [address] [place] [address] Teofilo Krishnamurthy DO [address] [place] [address] Advice (09/27) Allergies No known active allergiesdocumented as of [...] mouth in the morning. 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 [...] mRNA, LNP-s, No Pre serve, 2-Dose Series ([facility]) 08/14/2021,12/11/2020,11/13/2020 COVID-19, LNP-s, No Preserve , Neal-sucrose, Ages 12+ (Pfizer) 04/22/2022 COVID-19, MRNA-LNP, PF, 30 M CG/0.3 mL, 12 YRS AND ABOVE, IM ([facility]) 07/12/2024 Covid-19, Mrna, Lnp-s, Pf, B ivalent, 30 Mcg, IM, 12 yrs and above ([facility]) 10/07/2022 Pneumococcal Conjugate Vacc, 13 Valent (Prevnar) 01/31/2015 Pneumococcal Conjugate Vacci ne, 20-valent ([id number]) 07/12/2024 RSV Vac., Bivalent, Perfusio n F, [...] encounter Miscellaneous Notes * Telephone Encounter - Teofilo Krishnamurthy DO - 09/27/2024 3:06 PM EST See visit notes. * Telephone Encounter - Bessy Herndon LPN - 09/27/2024 1:21 PM EST Call placed to patient and relayed information from Dr. Krishnamurthy. Pt acknowledged understanding. Willgo to [facility] for lab work and then come in for OV at 3:00. 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 Krishnamurthy schedule for acute visit at 3:00 today. * Telephone Encounter - Avelina Braga CCMA - 09/27/2024 12:09 PM EST Left message for patient to call back * Telephone Encounter - Teofilo Krishnamurthy DO - 09/27/2024 12:05 PM EST Schedule visit. Go to [facility] 1 hour before visit to have labs done * Telephone Encounter - Avelina Braga CCMA - 09/27/2024 11:26 AM EST Spoke with patient. Pt states that he feels gassy more than anything - Denies any nausea, vomiting or pain Urinating more than usual - Denies any pain, burning, pressure or blood. Black stool started about 1 week ago. Regular bowel movements. Using miralax everyday. States that he doesn't really feel dizzy, more weak than anything which is affecting his balance. Pt states that he drinking enough fluids. Can come in today or to be seen. Please advise. * Telephone Encounter - Nerissa Merrill OSA - 09/27/2024 11:03 AM EST Feels lousy sick to stomach, urinating a lot more Dizzy, weak Would like call back Please advise documented in this encounter Plan of Treatment Upcoming Encounters Date Type Department Care Team (Late st Contact Info) Description 11/14/2024 10:40 AM EST Office Visit Family Practice [address] [place] [address] [address] [place] [address] Teofilo Krishnamurthy, [address] [place] [address] 02/22/2025 10:40 AM EDT Office Visit Rheumatology [facility] [address] [place] [address] Best Wilkins MD [address] [place] [address] Health Maintenance Due Date Last Done Comments [...] this encounter Medical Devices Implanted Type Area Folder Taper Operator Device Identifier Shelf Expiration Date Model / Serial / Lot CorRiskthinktank Bio Composite X5 - [id number] Implanted:Qty: 3 on 07/02/2017 by Gael Stratton MD at [facility] Left: Shoulder [employer] 02/01/2019 AR-1927BCF / / [id number] [place] Pushlock 4.5x24mm - [id number] Implanted:Qty: 3 on 07/02/2017 by Gael Stratton MD at [facility] Left: Shoulder [employer] 02/01/2019 AR-1922BC / / [id number] Lens Intraoc 19.0 - [id number] - [id number] Implanted:Qty: 1 on 12/26/2021 by Saurav Cohen MD at OR [facility] Left: Eye BAUSCH & LOMB 10/04/2026 [id number] / [id number] / [id number] Lens Intraoc 19.0 - [id number] - [id number] Implanted:Qty: 1 on 01/09/2022 by Saurav Cohen MD at [facility] Right: Eye BAUSCH & LOMB 10/04/2026 [id number] / [id number] / [id number] documented as of this encounter Results * COMPREHENSIVE METABOLIC PANEL (09/27/2024 1:51 PM EST) BUN 15 6 - 20 mg/dL 09/27/2024 2:14 PM EST [facility] CREATININE 1.0 0.6 - 1.2 mg/dL 09/27/2024 2:14 PM EST [facility] EGFR 74 >=60 mL/min 09/27/2024 2:14 PM EST [facility] Comment:eGFR is calculated b ased on the CKD-EPI 2020 equation. SODIUM 140 135 - 146 mmol/L 09/27/2024 2:14 PM EST [facility] POTASSIUM 4.4 3.5 - 5.1 mmol/L 09/27/2024 2:14 PM EST [facility] CHLORIDE 103 98 - 107 mmol/L 09/27/2024 2:14 PM EST [facility] CO2 25 22 - 32 mmol/L 09/27/2024 2:14 PM EST [facility] ANION GAP 12 7 - 15 mmol/L 09/27/2024 2:14 PM EST [facility] GLUCOSE 80 70 - 120 mg/dL 09/27/2024 2:14 PM EST [facility] Albumin 4.2 3.8 - 5.0 g/dL 09/27/2024 2:14 PM EST [facility] AST 20 10 - 50 U/L 09/27/2024 2:14 PM EST [facility] Alkaline Phosphatase 91 35 - 130 U/L 09/27/2024 2:14 PM EST [facility] Bilirubin, Total 0.7 <=1.2 mg/dL 09/27/2024 2:14 PM EST [facility] CALCIUM 9.4 8.4 - 10.2 mg/dL 09/27/2024 2:14 PM EST [facility] Protein 7.2 6.0 - 8.3 g/dL 09/27/2024 2:14 PM EST [facility] ALT 15 10 - 50 U/L 09/27/2024 2:14 PM EST [facility] Blood Venous blood specimen / Unknown Venipuncture / Unknown 09/27/2024 1:51 PM EST 09/27/2024 1:51 PM EST us Teofilo Krishnamurthy DO LAB BLOOD ORDERABLES Final Res ult [facility] [address] [facility] [place] [address] documented in this encounter Visit Diagnoses Diagnosis Dark stools- Primary Nonspecific abnormal finding in stool contents Chronic respiratory failure with hypoxia (HCC) Chronic respiratory failure HTN, goal below 150/90 documented in this encounter Care Teams Airdox Fitter Relationship Specialty Start Date End Date Teofilo Krishnamurthy DO [address] [facility] [address] PCP - General Internal Medicine 03/17/24 documented as of this encounter
--- OUTSIDE RECORDS SUMMARY | 2024-11-25 12:22 | External Medical Summary | Summary of Care ---
Author Name Unknown Organization [facility] Address [address] [place] [address] Phone [phone] Care Team Providers Care Commissioned Fire Officer Name Role Phone Teofilo Krishnamurthy DO Primary Care Provider [phone] Encounter Details Date Type Department Care Team (Late st Contact Info) Description 08/23/2024 Documentation HEALTH & WELLNESS Zaid Edmonds, Health Medical Transcription Allergies No known active allergiesdocumented as of this encounter (statuses as of 08/23/2024) Medications Polyethylene Glycol 3350 17 GM/SCOOP Oral [...] mouth in the morning. Active oxygen IN GASIndications:SIENE MAKER D, group B, by GOLD 2017 classification (HCC) Administer into nostril 3 L/min(Oxygen) continuous . 1 Each 07/04/20 22 Active Vitamin D3 50 MCG (2000 UT) Oral Capsule Take 1 Capsule by mouth in the morning. 30 Capsule 5 08/14/20 22 Active Donepezil HCl 10 MG Oral Tablet (Aricept)Indicatio ns:MCI (mild cognitive impairment) TAKE ONE TABLET BY MOUTH BEFORE BEDTIME WITH LARGEST MEAL OF THE DAY 100 Tablet 3 05/25/2024 9:01 AM EDT 07/31/20 23 024 Active Calcium Citrate Plus Oral Tablet Take 1 Tablet by mouth in the morning. Active Potassium Citrate ER 10 MEQ (1080 MG) Oral Tablet Extended Release (Urocit-K)Indicati ons:Calculus of kidney TAKE ONE TABLET BY MOUTH THREE TIMES A DAY 300 Tablet 3 06/07/2024 1:45 PM EDT 11/20/19 24 025 Active Omeprazole 20 MG Oral Capsule Delayed Release (PriLOSEC) TAKE ONE CAPSULE BY MOUTH EVERY DAY 100 Capsule 3 06/11/2024 9:26 AM EDT 11/26/19 24 025 Active amLODIPine Besylate 5 MG Oral Tablet (Norvasc)Indicatio ns:HTN, goal below 150/90 take 1 tablet by mouth every morning 90 Tablet 3 11/29/19 24 Active Mirtazapine 7.5 MG Oral Tablet (Remeron)Indicatio ns:PAUL (generalized anxiety disorder) TAKE 1 TABLET BY MOUTH AT BEDTIME 90 Tablet 1 03/28/20 24 Active Finasteride 5 MG Oral Tablet (Proscar) Take one tablet by mouth every day 90 Tablet 3 07/23/2024 3:24 PM EDT 05/17/20 24 Active Tamsulosin HCl 0.4 MG Oral Capsule (Flomax) Take one capsule by mouth every day 90 Capsule 3 06/27/2024 6:26 AM EDT 05/17/20 24 Active Gabapentin 100 MG Oral [...] 180 Each 06/30/2024 7:49 AM EDT 06/27/20 Active Classics Rolling WalkerIndications: Generalized osteoarthritis,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 Light, seat with brakes. 1 Each 07/24/20 Active Losartan Potassium 25 MG Oral Tablet (Cozaar)Indication s:HTN, goal below 150/90 TAKE ONE TABLET BY MOUTH IN THE MORNING 100 Tablet 1 08/02/2024 5:42 PM EDT 08/01/20 Active traMADol HCl 50 MG Oral Tablet (Ultram)Indication s:Generalized osteoarthritis TAKE 1 TABLET BY MOUTH 2 TIMES A DAY NEEDED FOR PAIN, SEVERE. 60 Tablet 08/05/20 Active documented as of this encounter (statuses as of 08/23/2024) Active Problems Problem Noted Date Diagnosed Date [...] as of this encounter (statuses as of 08/23/2024) Resolved Problems Problem Noted Date Diagnosed Date [...] as of this encounter (statuses as of 08/23/2024) Immunizations Name Administration Dates Next Due COVID-19 mRNA, LNP-s, No Pre serve, 2-Dose Series ([facility]) 08/14/2021,12/11/2020,11/13/2020 COVID-19, LNP-s, No Preserve , Neal-sucrose, Ages 12+ ([facility]) 04/22/2022 COVID-19, MRNA-LNP, PF, 30 M CG/0.3 mL, 12 YRS AND ABOVE, IM ([facility]) 07/12/2024 Covid-19, Mrna, Lnp-s, Pf, B ivalent, 30 Mcg, IM, 12 yrs and above (Pfizer) 10/07/2022 Pneumococcal Conjugate Vacc, 13 Valent (Prevnar) 01/31/2015 Pneumococcal Conjugate Vacci ne, 20-valent ([id number]) 07/12/2024 RSV Vac., Bivalent, Perfusio n F, [...] No 11/09/2023 Does the household have a [facility] source of income? (Household - for ages [...] encounter Progress Notes * Zaid Edmonds, Health Medical Transcription - 08/23/2024 12:45 PM EST Visit Type: Return Wellness Return Visit Type: 1:1 Bike Glute squeeze Ball squeeze Band row Bicep curls Incline chest press Leg raises Knee to ball Gas peddle Squats Hamstring curls w ball 12 reps, 1 set documented in this encounter Plan of Treatment Upcoming Encounters Date Type Department Care Team (Late st Contact Info) Description 11/14/2024 10:40 AM EST Office Visit Family Practice [address] [place] [address] 293 [place] [address] Teofilo Krishnamurthy DO 293 [place] [address] 01/06/2025 11:00 AM EDT Nurse Only Family Practice [address] [place] [address] 293 [place] [phone] Opal Preston RN [address] [place] [phone] 02/22/2025 10:40 AM EDT Office Visit Rheumatology [place] [address] [place] [address] Best Wilkins MD [facility] [employer] [place] [address] Health Maintenance Due Date Last Done Comments [...] this encounter Medical Devices Implanted Type Area Java Developer Consultant Device Identifier Shelf Expiration Date Model / Serial / Lot KhariInteractive TKO Bio Composite X5 - [id number] Implanted:Qty: 3 on 07/02/2017 by Gael Stratton MD at OR [facility] Left: Shoulder [employer] 02/01/2019 AR-1927BCF / / [id number] [place] Pushlock 4.5x24mm - [id number] Implanted:Qty: 3 on 07/02/2017 by Gael Stratton MD at OR [facility] Left: Shoulder [employer] 02/01/2019 AR-1922BC / / [id number] Lens Intraoc 19.0 - [id number] - [id number] Implanted:Qty: 1 on 12/26/2021 by Saurav Cohen MD at OR [facility] Left: Eye BAUSCH [employer] LOMB 10/04/2026 [id number] / [id number] / [id number] Lens Intraoc 19.0 - [id number] - [id number] Implanted:Qty: 1 on 01/09/2022 by Saurav Cohen MD at OR [facility] Right: Eye BAUSCH & LOMB 10/04/2026 [id number] / [id number] / [id number] documented as of this encounter Care Teams Commissioned Fire Officer Relationship Specialty Start Date End Date Teofilo Krishnamurthy DO [address] [place] [address] PCP - General Internal Medicine 03/17/24 documented as of this encounter
--- OUTSIDE RECORDS SUMMARY | 2024-11-25 12:22 | External Medical Summary | Summary of Care ---
Author Name Unknown Organization [facility] Address [address] [place] [address] Phone [phone] Care Team Providers Care Adjunct Instructor Of Women'S Studies Name Role Phone Teofilo Krishnamurthy DO Primary Care Provider [phone] Encounter Details Date Type Department Care Team (Late st Contact Info) Description 08/30/2024 Documentation HEALTH & WELLNESS Zaid Edmonds, Health Copy Room Technician Allergies No known active allergiesdocumented as of [...] mouth in the morning. Active oxygen IN GASIndications:INSTRUCTIONAL SPECIALIST D, group B, by GOLD 2017 [...] 08/02/2024 5:42 PM EDT 08/01/20 24 Active traMADol HCl 50 MG Oral Tablet (Ultram)Indication s:Generalized osteoarthritis TAKE 1 TABLET BY MOUTH 2 TIMES A DAY NEEDED FOR PAIN, SEVERE. 60 Tablet 08/05/20 24 Active Donepezil HCl 10 MG Oral Tablet (Aricept)Indicatio ns:MCI (mild cognitive impairment) TAKE ONE TABLET BY MOUTH BEFORE BEDTIME WITH LARGEST MEAL OF THE DAY 100 Tablet 3 09/02/2024 10:05 AM EST 08/29/20 24 025 Active documented as of this encounter (statuses [...] mRNA, LNP-s, No Pre serve, 2-Dose Series (Red Swoosh) 08/14/2021,12/11/2020,11/13/2020 COVID-19, LNP-s, No Preserve , Neal-sucrose, Ages 12+ (Pfizer) 04/22/2022 COVID-19, MRNA-LNP, PF, 30 M CG/0.3 mL, 12 YRS AND ABOVE, IM ([facility]) 07/12/2024 Covid-19, Mrna, Lnp-s, Pf, B ivalent, 30 Mcg, IM, 12 yrs and above (Pfizer) 10/07/2022 Pneumococcal Conjugate Vacc, 13 Valent (Prevnar) 01/31/2015 Pneumococcal Conjugate Vacci ne, 20-valent ([id number]) 07/12/2024 RSV Vac., Bivalent, Perfusio n F, [...] No 11/09/2023 Does the household have a [facility] source of income? (Household - for ages [...] encounter Progress Notes * Zaid Edmonds, Health Copy Room Technician - 09/07/2024 7:34 AM EST Visit Type: Return Wellness Return Visit Type: 1:1 Bike Leg raise Ball squeeze Bicep curls Band rows Gas peddle Single leg balance Calf raises Squats Lateral kickout Incline chest press 12 reps, 2 sets documented in this encounter Plan of Treatment Upcoming Encounters Date Type Department Care Team (Late st Contact Info) Description 11/14/2024 10:40 AM EST Office Visit Family Practice [address] [place] [address] 293 [place] [phone] Teofilo Krishnamurthy DO 293 [place] [address] 01/06/2025 11:00 AM EDT Nurse Only Family Practice [address] [place] [address] 293 [place] [phone] Opal Preston RN 293 [place] [phone] 02/22/2025 10:40 AM EDT Office Visit Rheumatology [place] [address] [place] [address] Best Wilkins MD [address] [facility] [place] [address] Health Maintenance Due Date Last Done Comments [...] this encounter Medical Devices Implanted Type Area Outpatient Physical Therapist Device Identifier Shelf Expiration Date Model / Serial / Lot CorFastr Bio Composite X5 - [id number] Implanted:Qty: 3 on 07/02/2017 by Gael Stratton MD at OR [facility] Left: Shoulder [employer] 02/01/2019 AR-1927BCF / / [id number] [place] Pushlock 4.5x24mm - [id number] Implanted:Qty: 3 on 07/02/2017 by Gael Stratton MD at OR [facility] Left: Shoulder [employer] 02/01/2019 AR-1922BC / / [id number] Lens Intraoc 19.0 - [id number] - [id number] Implanted:Qty: 1 on 12/26/2021 by Saurav Cohen MD at OR [facility] Left: Eye [employer]USCH [employer] LOMB 10/04/2026 [id number] / [id number] / [id number] Lens Intraoc 19.0 - [id number] - [id number] Implanted:Qty: 1 on 01/09/2022 by Saurav Cohen MD at OR [facility] Right: Eye BAUSCH [employer] LOMB 10/04/2026 [id number] / [id number] / [id number] documented as of this encounter Care Teams Adjunct Instructor Of Women'S Studies Relationship Specialty Start Date End Date Teofilo Krishnamurthy DO [address] [place] [address] PCP - General Internal Medicine 03/17/24 documented as of this encounter
--- OUTSIDE RECORDS SUMMARY | 2024-11-25 12:22 | External Medical Summary | Summary of Care ---
Author Name Unknown Organization [facility] Address [address] [place] [address] Phone [phone] Care Team Providers Care Music Rehabilitation Therapist Name Role Phone Teofilo Krishnamurthy DO Primary Care Provider [phone] Encounter Details Date Type Department Care Team (Late st Contact Info) Description 09/13/2024 Documentation HEALTH & WELLNESS Zaid Edmonds, Health Executive Coach Allergies No known active allergiesdocumented as of this encounter (statuses as of 09/13/2024) Medications Polyethylene Glycol 3350 17 GM/SCOOP Oral [...] mouth in the morning. 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 CUTTER HAND D, group B, by GOLD 2017 classification [...] as of this encounter (statuses as of 09/13/2024) Active Problems Problem Noted Date Diagnosed Date [...] as of this encounter (statuses as of 09/13/2024) Resolved Problems Problem Noted Date Diagnosed Date [...] as of this encounter (statuses as of 09/13/2024) Immunizations Name Administration Dates Next Due COVID-19 mRNA, LNP-s, No Pre serve, 2-Dose Series (Omnisio) 08/14/2021,12/11/2020,11/13/2020 COVID-19, LNP-s, No Preserve , Neal-sucrose, Ages 12+ (Pfizer) 04/22/2022 COVID-19, MRNA-LNP, PF, 30 M CG/0.3 mL, 12 YRS AND ABOVE, IM ([facility]) 07/12/2024 Covid-19, Mrna, Lnp-s, Pf, B ivalent, 30 Mcg, IM, 12 yrs and above (Pfizer) 10/07/2022 Pneumococcal Conjugate Vacc, 13 Valent (Prevnar) 01/31/2015 Pneumococcal Conjugate Vacci ne, 20-valent ([id number]) 07/12/2024 RSV Vac., Bivalent, Perfusio n F, [...] No 11/09/2023 Does the household have a [facility]? (Household - for ages [...] encounter Progress Notes * Zaid Edmonds, Health Executive Coach - 09/13/2024 2:06 PM EST Visit Type: Return Wellness Return Visit Type: 1:1 Bike Band rows Leg raises Bicep curls Ball squeeze Incline chest press Gas peddle Band inter rotation Knee ball drive Hamstring curl Squat Single leg balance Calf raises 12 reps, 2 sets documented in this encounter Plan of Treatment Upcoming Encounters Date Type Department Care Team (Late st Contact Info) Description 11/14/2024 10:40 AM EST Office Visit Family Practice [address] [place] [address] 293 [place] [phone] Teofilo Krishnamurthy DO 293 [facility] [place] [address] 01/06/2025 11:00 AM EDT Nurse Only Family Practice [address] [place] [address] 293 [place] [phone] Opal Preston RN 293 [facility] [place] [phone] 02/22/2025 10:40 AM EDT Office Visit Rheumatology [place] [address] [facility] [place] [address] Best Wilkins MD [facility] [employer] [place] [address] Health Maintenance Due Date Last Done Comments [...] this encounter Medical Devices Implanted Type Area Automotive Vehicle Inspector Device Identifier Shelf Expiration Date Model / Serial / Lot Leanplum Bio Composite X5 - [id number] Implanted:Qty: 3 on 07/02/2017 by Gael Stratton MD at OR [facility] Left: Shoulder [employer] 02/01/2019 AR-1927BCF / / [id number] [place] Pushlock 4.5x24mm - [id number] Implanted:Qty: 3 on 07/02/2017 by Gael Stratton MD at OR [facility] Left: Shoulder [employer] 02/01/2019 AR-1922BC / / [id number] Lens Intraoc 19.0 - [id number] - [id number] Implanted:Qty: 1 on 12/26/2021 by Saurav Cohen MD at OR [facility] Left: Eye [employer]CH [employer] LOMB 10/04/2026 [id number] / [id number] / [id number] Lens Intraoc 19.0 - [id number] - [id number] Implanted:Qty: 1 on 01/09/2022 by Saurav Cohen MD at OR [facility] Right: Eye [employer]USCH [employer] LOMB 10/04/2026 [id number] / [id number] / [id number] documented as of this encounter Care Teams Music Rehabilitation Therapist Relationship Specialty Start Date End Date Teofilo Krishnamurthy DO [address] [place] [place] [address] PCP - General Internal Medicine 03/17/24 documented as of this encounter
--- OUTSIDE RECORDS SUMMARY | 2024-11-25 12:22 | External Medical Summary | Summary of Care ---
Author Name Unknown Organization [facility] Address [address] [place] [address] Phone [phone] Care Team Providers Care Coil Connector Repairer Name Role Phone Dayana Krishnamurthy DO Primary Care Provider [phone] Reason for Visit * Reason Comments eRx-Medication Refill Encounter Details Date Type Department Care Team (Late st Contact Info) Description 09/23/2024 Refill Family Practice [address], [place] [address] [place] [phone] Dayana Krishnamurthy DO 293 [place] [address] PAUL (generalized anxiety disorder) Allergies No known active allergiesdocumented as of this encounter (statuses as of 09/24/2024) Medications Polyethylene Glycol 3350 17 GM/SCOOP Oral [...] PD, group B, by GOLD 2017 classification ([facility]) Administer into nostril 3 L/min(Oxygen) continuous [...] BY MOUTH BEFORE BEDTIME 90 Capsule 5 024 Active Trelegy Ellipta 100-62.5-25 MCG/ACT Aerosol Powder Breath Activated (Fluticasone-Umec lidinium-Vilanter ol) Inhale 1 Puff by mouth daily. 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 Light, seat with brakes. 1 Each Active Losartan Potassium 25 MG Oral Tablet [...] needed for Pain, Severe. 60 Tablet 024 Active Mirtazapine 7.5 MG Oral Tablet (Remeron)Indicati ons:PAUL (generalized anxiety disorder) TAKE 1 TABLET BY MOUTH AT BEDTIME 90 Tablet 1 024 Active Mirtazapine 7.5 MG Oral Tablet (Remeron)Indicati ons:PAUL (generalized anxiety disorder) TAKE 1 TABLET BY MOUTH AT BEDTIME 90 Tablet 1 024 2023 Discontinued documented as of this encounter (statuses as of 09/24/2024) Active Problems Problem Noted Date Diagnosed Date [...] as of this encounter (statuses as of 09/24/2024) Resolved Problems Problem Noted Date Diagnosed Date [...] as of this encounter (statuses as of 09/24/2024) Immunizations Name Administration Dates Next Due COVID-19 mRNA, LNP-s, No Pre serve, 2-Dose Series (MD On-Line) 08/14/2021,12/11/2020,11/13/2020 COVID-19, LNP-s, No Preserve , Neal-sucrose, Ages 12+ (Pfizer) 04/22/2022 COVID-19, MRNA-LNP, PF, 30 M CG/0.3 mL, 12 YRS AND ABOVE, IM ([facility]) 07/12/2024 Covid-19, Mrna, Lnp-s, Pf, B ivalent, 30 Mcg, IM, 12 yrs and above (MD On-Line) 10/07/2022 Pneumococcal Conjugate Vacc, 13 Valent (Prevnar) 01/31/2015 Pneumococcal Conjugate Vacci ne, 20-valent ([id number]) 07/12/2024 RSV Vac., Bivalent, Perfusio n F, [...] encounter Miscellaneous Notes * Telephone Encounter - Whitney Mayo [facility] - 09/24/2024 1:04 PM ESTSigned Prescriptions: Disp Refills Mirtazapine 7.5 MG Oral Tablet (Remeron) 90 Tab*1 Sig: TAKE 1 TABLET BY MOUTH AT BEDTIMEAuthorizing Provider: DAYANA KIRSHNAMURTHY AOrdering User: WHITNEY MAYO------ documented in this encounter Plan of Treatment Upcoming Encounters Date Type Department Care Team (Late st Contact Info) Description 11/14/2024 10:40 AM EST Office Visit Family Practice [address] [place] [address] 293 [place] [address] Dayana Krishnamurthy DO 293 [place] [address] 01/06/2025 11:00 AM EDT Nurse Only Family Practice [address] [place] [address] 293 [facility] [place], [place] [address] Opal Preston, PAPA 293 [place] [address] 02/22/2025 10:40 AM EDT [address] [address] Best Wilkins MD [address] [facility] [place] [address] Health Maintenance Due Date Last Done Comments Alpha-1 Antitrypsin 1958 Adult Wellness Visit 01/03/2025 01/04/2024, 12/30/2022, 07/18/2021 Depression Screening 01/03/2025 01/04/2024 Albumin/Creatinine Ratio 06/25/2025 06/25/2022 O2 ASSESSMENT COMPLETED IN PAST YEAR FOR COPD 07/12/2025 07/12/2024 DXA Scan 02/21/2026 02/22/2024, 04/2018, 07/21/2016, Additional [...] this encounter Medical Devices Implanted Type Area Professor Of Geography Device Identifier Shelf Expiration Date Model / Serial / Lot Fidel Bio Composite X5 - [id number] Implanted:Qty: 3 on 07/02/2017 by [facility] Left: Shoulder [employer] 02/01/2019 AR-1927BCF / / [id number] [place] Pushlock 4.5x24mm - [id number] Implanted:Qty: 3 on 07/02/2017 by Gael Stratton MD at OR [facility] Left: Shoulder [employer] 02/01/2019 AR-1922BC / / [id number] Lens Intraoc 19.0 - [id number] - [id number] Implanted:Qty: 1 on 12/26/2021 by Saurav Cohen MD at OR [facility] Left: Eye BAUSCH & LOMB 10/04/2026 [id number] / [id number] / [id number] Lens Intraoc 19.0 - [id number] - [id number] Implanted:Qty: 1 on 01/09/2022 by Saurav Cohen MD at OR [facility] Right: Eye BAUSCH & LOMB 10/04/2026 [id number] / [id number] / [id number] documented as of this encounter Visit Diagnoses Diagnosis PAUL (generalized anxiety disorder) Generalized anxiety disorder documented in this encounter Care Teams Coil Connector Repairer Relationship Specialty Start Date End Date Dayana Krishnamurthy DO 293 [place] [address] PCP - General Internal Medicine 03/17/24 documented as of this encounter
--- OUTSIDE RECORDS SUMMARY | 2024-11-25 12:22 | External Medical Summary | Summary of Care ---
Author Name Unknown Organization [facility] Address [address] [place] [address] Phone [phone] Care Team Providers Care Gold Buyer Name Role Phone Dayana Krishnamurthy DO Primary Care Provider [phone] Reason for Visit * Reason Comments Medication Refill Encounter Details Date Type Department Care Team (Late st Contact Info) Description 08/29/2024 Refill Family Practice [address], [place] 293 [place] [phone] Dayana Krishnamurthy DO 293 [place] [address] MCI (mild cognitive impairment) Allergies No known active allergiesdocumented as of this encounter (statuses as of 08/29/2024) Medications Polyethylene Glycol 3350 17 GM/SCOOP Oral [...] mouth in the morning. Active oxygen IN GASIndications:PERIOPERATIVE MANAGER D, group B, by GOLD 2017 classification ([facility]) Administer into nostril 3 L/min(Oxygen) [...] 300 Tablet 3 4 1:45 PM EDT 11/20/19 24 025 Active Omeprazole 20 MG Oral Capsule Delayed Release (PriLOSEC) TAKE ONE CAPSULE BY MOUTH EVERY DAY 100 Capsule 3 4 9:26 AM EDT 11/26/19 24 025 Active [...] 90 Tablet 3 4 3:24 PM EDT 05/17/20 24 Active Tamsulosin HCl 0.4 MG Oral Capsule (Flomax) Take one capsule by mouth every day 90 Capsule 3 4 6:26 AM EDT 05/17/20 24 Active Gabapentin [...] daily. 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 Light, seat with brakes. 1 Each 07/24/20 24 Active Losartan Potassium 25 MG Oral Tablet (Cozaar)Indication s:HTN, goal below 150/90 TAKE ONE TABLET BY MOUTH IN THE MORNING 100 Tablet 1 4 5:42 PM EDT 08/01/20 24 Active traMADol HCl 50 MG Oral Tablet (Ultram)Indication s:Generalized osteoarthritis TAKE 1 TABLET BY MOUTH 2 TIMES A DAY NEEDED FOR PAIN, SEVERE. 60 Tablet 08/05/20 24 Active Donepezil HCl 10 MG Oral Tablet (Aricept)Indicatio ns:MCI (mild cognitive impairment) TAKE ONE TABLET BY MOUTH BEFORE BEDTIME WITH LARGEST MEAL OF THE DAY 100 Tablet 3 08/29/20 24 025 Active Donepezil HCl 10 MG Oral Tablet (Aricept)Indicatio ns:MCI (mild cognitive impairment) TAKE ONE TABLET BY MOUTH BEFORE BEDTIME WITH LARGEST MEAL OF THE DAY 100 Tablet 3 4 9:01 AM EDT 07/31/20 23 024 Discontin ued(Refil l) documented as of this encounter (statuses as of 08/29/2024) Active Problems Problem Noted Date Diagnosed Date [...] as of this encounter (statuses as of 08/29/2024) Resolved Problems Problem Noted Date Diagnosed Date [...] as of this encounter (statuses as of 08/29/2024) Immunizations Name Administration Dates Next Due COVID-19 mRNA, LNP-s, No Pre serve, 2-Dose Series (SecureAlert) 08/14/2021,12/11/2020,11/13/2020 COVID-19, LNP-s, No Preserve , Neal-sucrose, Ages 12+ (Pfizer) 04/22/2022 COVID-19, MRNA-LNP, PF, 30 M CG/0.3 mL, 12 YRS AND ABOVE, [facility] 07/12/2024 Covid-19, Mrna, Lnp-s, Pf, B ivalent, 30 Mcg, IM, 12 yrs and above (SecureAlert) 10/07/2022 Pneumococcal Conjugate Vacc, 13 Valent (Prevnar) 01/31/2015 Pneumococcal Conjugate Vacci ne, 20-valent ([id number]) 07/12/2024 RSV Vac., Bivalent, Perfusio n F, [...] Telephone Encounter - Dayana Krishnamurthy DO - 08/29/2024 2:03 PM ESTSigned Prescriptions: Disp Refills Donepezil HCl 10 MG Oral Tablet (Aricept) 100 Ta*3 Sig: TAKE ONETABLET BY MOUTH BEFORE BEDTIME WITH LARGEST MEAL OF THE DAYAuthorizing Provider: DAYANA KRISHNAMURTHY---- * Telephone Encounter - Opal Trivedi LPN - 08/29/2024 1:44 PM ESTPending Prescriptions: Disp Refills Donepezil HCl 10 MG Oral Tablet (Aricept) 100 Ta*3 Sig: TAKE ONE TABLET BY MOUTH BEFORE BEDTIME WITH LARGEST MEAL OF THE DAY * Telephone Encounter - Opal Trivedi LPN - 08/29/2024 1:43 PM EST Did you pend patient's preferred pharmacy and medication before forwarding?yes Pharmacy: [facility] Pending Prescriptions: Disp Refills Donepezil HCl 10 MG Oral Tablet (Aricept) 100 Ta*3 Sig: TAKE ONE TABLET BY MOUTH BEFORE BEDTIME WITH LARGEST MEAL OF THE DAY Last Visit: 07/12/2024 (in office), Visit date not found (telemedicine) Next Visit: 08/30/2024 If no future appointments scheduled, and last appointment is greater than a year ago, please schedule patient for a follow-up appointment Last date the medication was ordered: Is this request for a controlled substance?No Urine Drug Screen:No results found. However, due to the size of the patient record, not all encounters were searched. Please check Results Review for a complete set of results. Patient Phone Numbers Labs: Lab Results Component Value Date/Time CREAT 1.0 07/05/2024 10:19 AM CREAT 1.0 12/22/2019 01:56 PM POTASSIUM 4.1 07/05/2024 10:19 AM POTASSIUM 4.5 12/22/2019 01:56 PM TSH 2.65 02/04/2022 04:29 PM TSH 2.20 12/22/2019 01:56 PM LDL 128 07/07/2023 10:34 AM LDL 103 05/03/2014 09:25 AM LDL NOT APPLICABLE 05/03/2014 09:25 AM ALT 6 (L) 07/05/2024 10:19 AM ALT 19 12/22/2019 01:56 PM HGBA1C 5.5 08/12/2022 09:58 AM * Telephone Encounter - Luisa Jimenez - 08/29/2024 9:30 AM ESTPending Prescriptions: Disp Refills Donepezil HCl 10 MG Oral Tablet (Aricept) 100 Ta*3 Sig: TAKE ONE TABLET BY MOUTH BEFORE BEDTIME WITH LARGEST MEAL OF THE DAY documented in this encounter Plan of Treatment Upcoming Encounters Date Type Department Care Team (Late st Contact Info) Description 08/30/2024 12:30 PM EST Office Visit Family Practice [address] [place] [address] 293 [place] [phone] College, Health Operations Examiner Fam Prac [address] [place] [address] 11/14/2024 10:40 AM EST Office Visit Family Practice [address] [place] [address], [place] [phone] Dayana Krishnamurthy DO 293 [place] [address] 01/06/2025 11:00 AM EDT Nurse Only [address] [place] [phone] Opal Preston, PAPA [address] [place] [address], [place] [phone] 02/22/2025 10:40 AM EDT Office Visit Rheumatology [address] [place] [address] Best Wilkins MD [address] [facility] [place] [address] Health Maintenance Due Date Last Done Comments [...] this encounter Medical Devices Implanted Type Area Rodbuster Device Identifier Shelf Expiration Date Model / Serial / Lot CorCorceuticals Bio Composite X5 - [id number] Implanted:Qty: 3 on 07/02/2017 by Gael Stratton MD at OR [facility] Left: Shoulder [employer] 02/01/2019 AR-1927BCF / / [id number] [place] Pushlock 4.5x24mm - [id number] Implanted:Qty: 3 on 07/02/2017 by Gael Stratton MD at OR [facility] Left: Shoulder [employer] 02/01/2019 AR-1922BC / / [id number] Lens Intraoc 19.0 - [id number] - [id number] Implanted:Qty: 1 on 12/26/2021 by Saurav Cohen MD at OR [facility] Left: Eye [employer]CH [employer]OMB 10/04/2026 [id number] / [id number] / [id number] Lens Intraoc 19.0 - [id number] - [id number] Implanted:Qty: 1 on 01/09/2022 by Saurav Cohen MD at OR [facility] Right: Eye [employer]USCH [employer] LOMB 10/04/2026 [id number] / [id number] / [id number] documented as of this encounter Visit Diagnoses Diagnosis MCI (mild cognitive impairment) Mild cognitive impairment, so stated documented in this encounter Care Teams Gold Buyer Relationship Specialty Start Date End Date Dayana Krishnamurthy DO [address] [facility] [place] [address] PCP - General Internal Medicine 03/17/24 documented as of this encounter
--- OUTSIDE RECORDS SUMMARY | 2024-11-25 12:22 | External Medical Summary | Summary of Care ---
Author Name Unknown Organization [facility] Address [address] [place] [address] Phone [phone] Care Team Providers Care Sap Basis Name Role Phone Teofilo Krishnamurthy DO Primary Care Provider [phone] Reason for Visit * Reason Comments Outpatient Testing Encounter Details Date Type Department Care Team (Late st Contact Info) Description 09/27/2024 1:50 PM EST Laboratory Laboratory, [facility] [address] [place] [phone] [facility] [address] [place] [address] Dark stools; Chronic respiratory failure with hypoxia (HCC); HTN, goal below 150/90 Allergies No known active allergiesdocumented as of [...] NEEDED FOR PAIN 300 g 5 10/02/20 Active CPAP every night at bedtime . Active Fluoridex 1.1 % Dental Paste (Sodium Fluoride) Take by mouth 1 Application Dosing Unit daily . 06/30/20 Active Vitamin C 500 MG Oral Tablet Chewable Take 1 Tablet by mouth in the morning. Active oxygen IN GASIndications:PROPOSAL SPECIALIST D, group B, by GOLD 2017 classification ([facility]) Administer into nostril 3 L/min(Oxygen) continuous . 1 Each 07/04/20 Active Vitamin D3 50 MCG (2000 UT) Oral Capsule Take 1 Capsule by mouth in the morning. 30 Capsule 5 08/14/20 Active Calcium Citrate Plus Oral Tablet Take [...] BEDTIME 90 Tablet 1 09/24/20 24 Active documented as of this encounter [...] mRNA, LNP-s, No Pre serve, 2-Dose Series ([employer]) 08/14/2021,12/11/2020,11/13/2020 COVID-19, LNP-s, No Preserve , Neal-sucrose, Ages 12+ (Pfizer) 04/22/2022 COVID-19, MRNA-LNP, PF, 30 M CG/0.3 mL, 12 YRS AND ABOVE, IM (PFIZER-Comirnaty) 07/12/2024 Covid-19, Mrna, Lnp-s, Pf, B ivalent, 30 Mcg, IM, 12 yrs and above (Pfizer) 10/07/2022 Pneumococcal Conjugate Vacc, 13 Valent (Prevnar) 01/31/2015 Pneumococcal Conjugate Vacci ne, 20-valent ([id number]) 07/12/2024 RSV Vac., Bivalent, Perfusio n F, [...] Team (Late st Contact Info) Description 09/27/2024 3:00 PM EST Office Visit Family Practice [address] [place] [address] [address] [place] [address] Teofilo Krishnamurthy, DO [address] [facility] [place] [address] Arrived 11/14/2024 10:40 AM EST Office Visit Family Practice [address] [place] [address] [address] [place] [address] Teofilo Krishnamurthy, DO [address] [facility] [place] [address] 02/22/2025 10:40 AM EDT Office Visit Rheumatology [address] [place] [address] Best Wilkins MD [email or web address] [address] Pending Results Name Type Priority Associated Diagnoses Date /Time COMPREHENSIVE METABOLIC PANEL Lab STAT Dark stools Chronic respiratory failure with hypoxia (HCC) HTN, goal below 150/90 09/27/2024 1:51 PM EST Health Maintenance Due Date Last Done Comments [...] this encounter Medical Devices Implanted Type Area Grades 7 8 Tutor Device Identifier Shelf Expiration Date Model / Serial / Lot [employer] Bio Composite X5 - [id number] Implanted:Qty: 3 on 07/02/2017 by Gael Stratton MD at OR [facility] Left: Shoulder [employer] 02/01/2019 AR-1927BCF / / [id number] Pushlock 4.5x24mm - [id number] Implanted:Qty: 3 on 07/02/2017 by Gael Stratton MD at OR [facility] Left: Shoulder [employer] 02/01/2019 AR-1922BC / / [id number] Lens Intraoc 19.0 - [id number] - [id number] Implanted:Qty: 1 on 12/26/2021 by Saurav Cohen MD at OR [facility] Left: Eye [employer] 10/04/2026 [id number] / [id number] / [id number] Lens Intraoc 19.0 - [id number] - [id number] Implanted:Qty: 1 on 01/09/2022 by Saurav Cohen MD at OR [facility] Right: Eye [employer]OM[employer] 10/04/2026 [id number] / [id number] / [id number] documented as of this encounter Procedures Procedure Name Priority Date/Time Associated Diagnosis Comments DIFFERENTIAL, AUTOMATED STAT 09/27/2024 1:51 PM EST Dark stools CBC STAT 09/27/2024 1:51 PM EST Dark stools CBC STAT 09/27/2024 1:51 PM EST Dark stools documented in this encounter Results * DIFFERENTIAL, AUTOMATED (09/27/2024 1:51 PM EST) WBC 6.29 4.00 - 10.80 K/uL 09/27/2024 1:56 PM EST [facility] [place] [facility] [facility] Neutrophils % 68.2 40.0 - 75.0 % 09/27/2024 1:56 PM EST [facility] [place] [facility] Lymphocytes % 22.4 18.0 - 42.0 % 09/27/2024 1:56 PM EST [facility] [place] [facility] Monocytes % 8.3 1.0 - 11.0 % 09/27/2024 1:56 PM EST [facility] [place] [facility] [facility] Eosinophils % 0.6 0.0 - 6.0 % 09/27/2024 1:56 PM EST [facility] [place] [facility] Basophils % 0.5 0.0 - 2.0 % 09/27/2024 1:56 PM EST [facility] [place] [facility] Absolute Neutrophils 4.29 1.80 - 7.70 K/uL 09/27/2024 1:56 PM EST [facility] [place] [facility] Absolute Lymphocytes 1.41 1.00 - 4.80 K/ul 09/27/2024 1:56 PM EST [facility] [place] [facility] Absolute Monocytes 0.52 0.00 - 1.10 K/uL 09/27/2024 1:56 PM EST [facility] [place] [facility] Absolute Eosinophils 0.04 0.00 - 0.70 K/uL 09/27/2024 1:56 PM EST [facility] [place] [facility] Absolute Basophils 0.03 0.00 - 0.20 K/uL 09/27/2024 1:56 PM EST [facility] [place] [facility] [facility] Blood Venous blood specimen / Unknown Venipuncture / Unknown 09/27/2024 1:51 PM EST 09/27/2024 1:51 PM EST us Teofilo Krishnamurthy DO LAB BLOOD ORDERABLES Final Res ult [facility] [address] [facility] [address] * (ABNORMAL) CBC (09/27/2024 1:51 PM EST) WBC 6.29 4.00 - 10.80 K/uL 09/27/2024 1:56 PM EST [facility] RBC 5.04 4.50 - 5.25 M/uL 09/27/2024 1:56 PM EST [facility] HGB 16.3 14.0 - 16.8 g/dL 09/27/2024 1:56 PM EST [facility]10 HCT 48.7(H) 40.0 - 48.4 % 09/27/2024 1:56 PM EST [facility] MCV 96.6 82.0 - 99.5 fL 09/27/2024 1:56 PM EST [facility] MCH 32.3 27.0 - 34.0 pg 09/27/2024 1:56 PM EST [facility] MCHC 33.5 32.0 - 36.0 g/dL 09/27/2024 1:56 PM EST [facility] RDW 13.8 11.5 - 15.5 % 09/27/2024 1:56 PM EST [facility]10 PLT 167 140 - 400 K/uL 09/27/2024 1:56 PM EST [facility] MPV 10.7 6.6 - 11.1 fL 09/27/2024 1:56 PM EST [facility] Blood Venous blood specimen / Unknown Venipuncture / Unknown 09/27/2024 1:51 PM EST 09/27/2024 1:51 PM EST us Teofilo Krishnamurthy DO LAB BLOOD ORDERABLES Final Res ult [facility] [facility] [place] [address] documented in this encounter Visit Diagnoses Diagnosis Dark stools Nonspecific abnormal finding in stool contents Chronic respiratory failure with hypoxia (HCC) Chronic respiratory failure HTN, goal below 150/90 documented in this encounter Care Teams Sap Basis Relationship Specialty Start Date End Date Teofilo Krish[facility]urthy DO [address] [facility] [address] P[facility] - General Internal Medicine 03/17/24 documented as of this encounter
--- OUTSIDE RECORDS SUMMARY | 2024-11-25 12:22 | External Medical Summary ---
Author Name Unknown Address Unknown Organization [facility] [address] [place] [address] Laboratory Report Ordering Provider Test Date Status GUILHERME ANNE 09/27/2024 13:51:15 Final Observation Date Value Abnormality Reference (Units ) Status SYNC LEUKOCYTES IN BLOOD BY AUTOMATED COUNT 09/27/2024 13:51:15 6.29 4.00-10.80 (K/uL) Final Segs 09/27/2024 13:51:15 68.2 40.0-75.0 (%) Final Lymphs % 09/27/2024 13:51:15 22.4 18.0-42.0 (%) Final Monos 09/27/2024 13:51:15 8.3 1.0-11.0 (%) Final Eosinophils 09/27/2024 13:51:15 0.6 0.0-6.0 (%) Final Basos 09/27/2024 13:51:15 0.5 0.0-2.0 (%) Final Absolute Segs 09/27/2024 13:51:15 4.29 1.80-7.70 (K/uL) Final Lymphs, absolute 09/27/2024 13:51:15 1.41 1.00-4.80 (K/ul) Final Monos, Abs 09/27/2024 13:51:15 0.52 0.00-1.10 (K/uL) Final Eos, Abs 09/27/2024 13:51:15 0.04 0.00-0.70 (K/uL) Final Basos, Abs 09/27/2024 13:51:15 0.03 0.00-0.20 (K/uL) Final Performing Location LAB[facility]ATORY [facility] - [address] [place] [address]
--- OUTSIDE RECORDS SUMMARY | 2024-11-25 12:22 | External Medical Summary ---
Author Name Unknown Address Unknown Organization [facility] - [address] [place] [address] Laboratory Report Ordering Provider Test Date Status GUILHERME ANNE 09/27/2024 13:51:15 Final Observation Date Value Abnormality Reference (Units ) Status WBC, Total 09/27/2024 13:51:15 6.29 4.00-10.8 0 (K/uL) Final RBC 09/27/2024 13:51:15 5.04 4.50-5.25 (M/uL) Final Hemoglobin 09/27/2024 13:51:15 16.3 14.0-16.8 (g/dL) Final HCT 09/27/2024 13:51:15 48.7 Above high normal 40 .0-48.4 (%) Final MCV 09/27/2024 13:51:15 96.6 82.0-99.5 (fL) Final MCH 09/27/2024 13:51:15 32.3 27.0-34.0 (pg) Final MCHC 09/27/2024 13:51:15 33.5 32.0-36.0 (g/dL) Final RDW 09/27/2024 13:51:15 13.8 11.5-15.5 (%) Final Platelets 09/27/2024 13:51:15 167 140-400 (K /uL) Final MPV 09/27/2024 13:51:15 10.7 6.6-11.1 ( fL) Final Performing Location LABORATORY [facility] - [address] [place] [address]
--- OUTSIDE RECORDS SUMMARY | 2024-11-25 12:22 | External Medical Summary | Summary of Care ---
Author Name Unknown Organization [facility] Address [address] [place] [address] Phone [phone] Care Team Providers Care Stone Layout Marker Name Role Phone Teofilo Krishnamurthy DO Primary Care Provider [phone] Encounter Details Date Type Department Care Team (Late st Contact Info) Description 09/06/2024 Documentation HEALTH & WELLNESS Zaid Edmonds, Health Um Specialist Allergies No known active allergiesdocumented as [...] mouth in the morning. 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, group B, by GOLD 2017 classification [...] mRNA, LNP-s, No Pre serve, 2-Dose Series ([employer]) 08/14/2021,12/11/2020,11/13/2020 COVID-19, LNP-s, No Preserve , Neal-sucrose, Ages 12+ (Pfizer) 04/22/2022 COVID-19, MRNA-LNP, PF, 30 M CG/0.3 mL, 12 YRS AND ABOVE, IM ([facility]) 07/12/2024 Covid-19, Mrna, Lnp-s, Pf, B ivalent, 30 Mcg, IM, 12 yrs and above (Pfizer) 10/07/2022 Pneumococcal Conjugate Vacc, 13 Valent (Prevnar) 01/31/2015 Pneumococcal Conjugate Vacci ne, 20-valent ([id number]) 07/12/2024 RSV Vac., Bivalent, Perfusio n F, [...] No 11/09/2023 Does the household have a [facility] source of income? (Household - for ages [...] encounter Progress Notes * Zaid Edmonds, Health Um Specialist - 09/07/2024 7:35 AM EST Visit Type: Return Wellness Return Visit Type: 1:1 Bike Leg raise Ball squeeze Bicep curls Band rows Gas peddle Single leg balance Calf raises Squats Lateral kickout Incline chest press 12 reps, 2 sets documented in this encounter Plan of Treatment Upcoming Encounters Date Type Department Care Team (Late st Contact Info) Description 11/14/2024 10:40 AM EST Office Visit Family Practice [address] [place] [address] [address] [place] [phone] Teofilo Krishnamurthy DO 293 [facility] [place] [address] 01/06/2025 11:00 AM EDT Nurse Only Family Practice [address] [place] [address] 293 [place] [phone] Opal Preston RN [address] [place] [phone] 02/22/2025 10:40 AM EDT Office Visit Rheumatology [place] [address] [place] [address] Best Wilkins MD [address] [place] [address] Health Maintenance Due Date Last Done Comments [...] this encounter Medical Devices Implanted Type Area Manometer Technician Device Identifier Shelf Expiration Date Model / Serial / Lot [employer] Bio Composite X5 - [id number] Implanted:Qty: 3 on 07/02/2017 by Gael Stratton MD at OR [facility] Left: Shoulder [employer] 02/01/2019 AR-1927BCF / / [id number] Push[place] 4.5x24mm - [id number] Implanted:Qty: 3 on 07/02/2017 by Gael Stratton MD at OR [facility] Left: Shoulder [employer] 02/01/2019 AR-1922BC / / [id number] Lens Intraoc 19.0 - [id number] - [id number] Implanted:Qty: 1 on 12/26/2021 by Saurav Cohen MD at OR [facility] Left: Eye [employer] 10/04/2026 [id number] / [id number] / [id number] Lens Intraoc 19.0 - [id number] - [id number] Implanted:Qty: 1 on 01/09/2022 by Saurav Cohen MD at OR [facility] Right: Eye [employer] 10/04/2026 [id number] / [id number] / [id number] documented as of this encounter Care Teams Stone Layout Marker Relationship Specialty Start Date End Date Teofilo Krishnamurthy DO [address] [place] [address] PCP - General Internal Medicine 03/17/24 documented as of this encounter
--- OUTSIDE RECORDS SUMMARY | 2024-11-25 12:23 | External Medical Summary | Summary of Care ---
Author Name Unknown Organization [facility] Address [address] [place] [address] Phone [phone] Care Team Providers Care Air Intelligence Specialist Name Role Phone Teofilo Krishnamurthy DO Primary Care Provider [phone] Reason for Visit * Reason Comments Follow Up Encounter Details Date Type Department Care Team (Latest Contact Info) Description 07/12/2024 10:00 AM EDT Office Visit Family Practice [address] [facility] [place] [address] [place] [address] Teofilo Krishnamurthy DO [address] [place] [address] COPD, group B, by GOLD 2017 classification (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 Dissolve one heaping tablespoon in 8 ounces of water or juice. 1 Bottle 2 01/26/2018 Active Wheat Dextrin (BENEFIBER) powder Take by mouth daily. 01/26/2018 Active Cyanocobalamin (VITAMIN B-12) 1000 MCG TabletIndications:B1 2 deficiency Take 1 Tablet by mouth in the morning. 02/26/2018 Active Diclofenac Sodium 1 % External Gel apply 2 grams to affected area four times a day NEEDED FOR PAIN 300 g 5 10/02/2020 Active CPAP every night at bedtime . Active Fluoridex 1.1 % Dental Paste (Sodium Fluoride) Take by mouth 1 Application Dosing Unit daily . 06/30/2022 Active Vitamin C 500 MG Oral Tablet Chewable Take 1 Tablet by mouth in the morning. Active oxygen IN GASIndications:COPD, group B, by GOLD 2017 classification ([facility]) Administer into nostril 3 L/min(Oxygen) continuous . 1 Each 07/04/2022 Active Vitamin D3 50 MCG (2000 UT) Oral Capsule Take 1 Capsule by mouth in the morning. 30 Capsule 5 08/14/2022 Active Donepezil HCl 10 MG Oral Tablet (Aricept)Indications :MCI (mild cognitive impairment) TAKE ONE TABLET BY MOUTH BEFORE BEDTIME WITH LARGEST MEAL OF THE DAY 100 Tablet 3 07/31/2023 4 Active Calcium Citrate Plus Oral Tablet Take 1 Tablet by mouth in the morning. Active Potassium Citrate ER 10 MEQ (1080 MG) Oral Tablet Extended Release (Urocit-K)Indication s:Calculus of kidney TAKE ONE TABLET BY MOUTH THREE TIMES A DAY 300 Tablet 3 11/20/2023 5 Active Omeprazole 20 MG Oral Capsule Delayed Release (PriLOSEC) TAKE ONE CAPSULE BY MOUTH EVERY DAY 100 Capsule 3 11/26/2023 5 Active amLODIPine Besylate 5 MG Oral Tablet (Norvasc)Indications :HTN, goal below 150/90 take 1 tablet by mouth every morning 90 Tablet 3 11/29/2023 Active Losartan Potassium 25 MG Oral Tablet (Cozaar)Indications: HTN, goal below 150/90 TAKE ONE TABLET BY MOUTH IN THE MORNING 100 Tablet 1 01/19/2024 Active Mirtazapine 7.5 MG Oral Tablet (Remeron)Indications :PAUL (generalized anxiety disorder) TAKE 1 TABLET BY MOUTH AT BEDTIME 90 Tablet 1 03/28/2024 Active Finasteride 5 MG Oral Tablet (Proscar) Take one tablet by mouth every day 90 Tablet 3 05/17/2024 Active Tamsulosin HCl 0.4 MG Oral Capsule (Flomax) Take one capsule by mouth every day 90 Capsule 3 05/17/2024 Active Gabapentin 100 MG Oral Capsule (Neurontin)Indicatio ns:Lumbar degenerative disc disease TAKE 1 CAPSULE BY MOUTH IN THE MORNING AND 1 CAPSULE BY MOUTH AT NOON AND 1 CAPSULE BY MOUTH BEFORE BEDTIME 90 Capsule 5 06/26/2024 Active Trelegy Ellipta 100-62.5-25 MCG/ACT Aerosol Powder Breath Activated (Fluticasone-Umeclid inium-Vilanterol) Inhale 1 Puff by mouth daily. 180 Each 06/27/2024 Active traMADol HCl 50 MG Oral Tablet (Ultram)Indications: Generalized osteoarthritis TAKE 1 TABLET BY MOUTH 2 TIMES A DAY NEEDED FOR PAIN, SEVERE. 60 Tablet 06/30/2024 Active documented as of this encounter (statuses as of 07/13/2024) Active Problems Problem Noted Date Diagnosed Date [...] as of this encounter (statuses as of 07/13/2024) Resolved Problems Problem Noted Date Diagnosed Date Resolved Date Chronic respiratory failure, unsp w hypoxia or hypercapnia 10/07/2022 10/28/2022 Inflammatory polyarthritis 10/07/2022 0 10/16/2023 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, bilateral legs 10/07/2022 10/28/2022 Dementia without behavioral disturbance 08/08/2019 11/15/2020 Overview: ICD-10 update of inactive term Elevated hemoglobin [...] 08/07/2008 01/19/2017 ADVANCE DIRECTIVE INFORMATION 05/02/2008 04/10/2017 Overview: Yes, Patient instructed to provide copy of advance directive for provider to review and to be scanned into Electronic Medical Record Esophageal reflux 09/30/2006 05/14/2020 Calculus of kidney 09/15/2006 7 COPD, moderate 10/18/2003 09/20/2020 DIVERTICULITIS OF COLON 10/18/200307/05 Vertebral fracture 7 documented as of this encounter (statuses as of 07/13/2024) Immunizations Name Administration Dates Next Due COVID-19 mRNA, LNP-s, No Pre serve, 2-Dose Series (bizsol) 08/14/2021,12/11/2020,11/13/2020 COVID-19, LNP-s, No Preserve , Neal-sucrose, Ages 12+ (bizsol) 04/22/2022 COVID-19, MRNA-LNP, 24-25, P R, 30MCG/0.3ML, IM, 12YRS AND ABOVE (bizsol-Comirnaty) 07/12/2024 Covid-19, Mrna, Lnp-s, Pf, B ivalent, 30 Mcg, IM, 12 yrs and above (Pfizer) 10/07/2022 Pneumococcal Conjugate Vacc, 13 Valent (Prevnar) 01/31/2015 Pneumococcal Conjugate Vacci ne, 20-valent ([id number]) 07/12/2024 RSV Vac., Bivalent, Perfusio n F, [...] Assigned at Male 01/31/2019 10:54 AM EDT Gender Identity Male 01/31/2019 10:54 AM EDT Sexual Orientation Straight 01/31/2019 10 :54 AM EDT Job Start Date Occupation Industry Not on file Not on file Not on file documented as of this encounter Last Filed Vital Signs Vital Sign Reading Time Taken Comments Blood Pressure 118/60 07/12/2024 10:10 AM EDT Pulse 60 07/12/2024 10:10 AM EDT Temperature 36 C (96.8 F) 07/12/2024 10: 10 AM EDT Respiratory Rate 16 07/12/2024 10:1 0 AM EDT Oxygen Saturation 93% 07/12/2024 10: 10 AM EDT 3 lpm Inhaled Oxygen Concentration - - Weight 88.9 kg (195 lb 14.4 oz) 024 10:10 AM EDT Height 174.6 cm (5' 8.75") 07/12/2024 1 0:10 AM EDT Body Mass Index 29.14 07/12/2024 10:10 AM EDT documented in this encounter Progress Notes * Teofilo Krishnamurthy, DO - 07/12/2024 10:39 AM EDT SUBJECTIVE: Emmanuel Hung is a 84 year [...] Disc Disease that is seen for follow up.Nausea and bloating has resolved. Chronic shortness of breath is unchanged.Memory loss is stable. Appetite is good and weight is stable. He wears oxygen 3 L at all times. 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 30 Capsule 5 Donepezil HCl 10 MG Oral Tablet (Aricept) TAKE ONE TABLET BY MOUTH BEFORE BEDTIME WITH LARGEST MEALOF THE DAY 100 Tablet 3 Calcium Citrate Plus Oral Tablet Take 1 [...] by mouth every morning 90 Tablet 3 Losartan Potassium 25 MG Oral Tablet (Cozaar) TAKE ONE TABLET BY MOUTH IN THE MORNING 100 Tablet 1 Mirtazapine 7.5 MG Oral Tablet (Remeron) TAKE 1 TABLET BY MOUTH AT BEDTIME 90 Tablet 1 Finasteride 5 MG Oral Tablet (Proscar) Take [...] Ellipta 100-62.5-25 MCG/ACT Aerosol Powder Breath Activated (Fvdayhxyfuq-Bhwhhjsbpjhj-Ygkrvbqjmf) Inhale 1 Puff by mouth daily. 180 Each 0 traMADol HCl 50 MG Oral Tablet (Ultram) TAKE 1 TABLET BY MOUTH 2 TIMES A DAY NEEDED FOR PAIN, SEVERE. 60 Tablet 0 Diclofenac Sodium 1 % External Gel apply 2 grams to affected area four times a day NEEDED FOR PAIN 300 g 5 Fluoridex 1.1 % Dental Paste (Sodium Fluoride) Take by mouth 1 Application Dosing Unit daily . No current facility-administered medications for this visit. [...] by Gael Stratton Jr., MD at OR [facility] COLONOSCOPY THRU STOMA, W/BIOPSY 03/18/2013 adenomatous polyps COLONOSCOPY, DIAGNOSTIC (RECTUM) 02/16/2007 repeat in 5 years COLONOSCOPY, DIAGNOSTIC (RECTUM) 07/19/2012 tubulovillous adenoma w/ high grade dysplasia repeat in 6 mos COLONOSCOPY, DIAGNOSTIC (RECTUM) 04/10/2014 diverticulosis, repeat 3 yrs/done @ [facility] COLONOSCOPY, DIAGNOSTIC (RECTUM) 01/30/2017 diverticulosis, repeat 3 yrs/COLONOSCOPY FLEXIBLE PROXIMAL DIAGNOSTIC performed by Juanpablo Valencia MD at ENDOSCOPY [facility] COLONOSCOPY, DIAGNOSTIC (RECTUM) 07/11/2020 diverticulosis / COLONOSCOPY FLEXIBLE PROXIMAL DIAGNOSTIC performed by Juanpablo Valencia MD at ENDOSCOPY [facility] COLONOSCOPY, SURGERY REFERRAL OP 2002 due 2007 EGD, FLEXIBLE, DIAGNOSTIC 05/23/2015 inflammation on bx, eso stricture/[facility] EGD, FLEXIBLE, DIAGNOSTIC 01/30/2017 chronic esophagitis/ESOPHAGOGASTRODUODENOSCOPY (EGD), FLEXIBLE, TRANSORAL, DIAGNOSTIC performed by Juanpablo Valencia MD at ENDOSCOPY [facility] EGD, FLEXIBLE, W/BIOPSY 03/07/2009 med hiatal hernia, [...] Gael Stratton Jr., MD at [facility] REMOVE CATARACT, INSERT LENS PROSTH Left 12/26/2021 Left EXTRACAPSULAR CATARACT REMOVAL WITH INTRAOCULAR LENS performed by Saurav Cohen MD at [facility] REMOVE CATARACT, INSERT LENS PROSTH Right 01/09/2022 Right EXTRACAPSULAR CATARACT REMOVAL WITH INTRAOCULAR LENS performed by Saurav Cohen MD at OR [facility] REPAIR RUPTURED ROTATOR CUFF, CHRON Right 07/02/2017 Mini Open Chronic Rotator Cuff Repair performed by Gael Stratton Jr., MD at OR [facility] SHOULDER ARTHROSCOPY SURGERY Left 07/02/2017 ARTHROSCOPY SHOULDER DISTAL CLAVICLE RESECTION performed by Gael Stratton Jr., MD at OR [facility] SHOULDER ARTHROSCOPY/DECOMPRESSION Left 07/02/2017 ARTHROSCOPY SHOULDER SUBACROMIAL DECOMPRESSION performed by Gael Stratton Jr., MD at OR [facility] Review of patient's allergies indicates: No Known Allergies Review of Systems Constitutional: Positive for fatigue. Negative for appetite change, chills, fever and unexpected weight change. HENT: Negative for congestion, sore throat and trouble swallowing. Respiratory: Positive for shortness of breath. Negative for cough and wheezing. Cardiovascular: Negative for chest pain, palpitations and leg swelling. Gastrointestinal: Negative for abdominal pain, blood in stool, constipation, diarrhea, nausea and vomiting. Genitourinary: Negative for dysuria and hematuria. Nocturia is unchanged Musculoskeletal: Positive for arthralgias, back pain and gait problem. Neurological: Negative for dizziness, syncope and headaches. Psychiatric/Behavioral: Positive for confusion and decreased concentration. Negative for sleep disturbance. OBJECTIVE: BP 118/60 | Pulse 60 | Temp 36 C (96.8 F) | Resp 16 | Ht 1.746 m (5' 8.75") | Wt 88.9 kg (195 lb 14.4 oz) | SpO2 93% Comment: 3 lpm | BMI 29.14 kg/m | BSA 2.08 m Physical Exam Vitals and nursing note [...] at baseline. Motor: No weakness. Gait: Gait abnormal. Psychiatric: Mood and Affect: Mood normal. Behavior: Behavior normal. Cognition and Memory: Cognition is impaired. Memory is impaired. 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) Need for vaccination against Streptococcus pneumoniae - PNEUMOCOCCAL VACC, PCV20, IM ([id number]) HTN, goal below 150/90 Continue Losartan and Amlodipine Other orders - COVID-19, MRNA-LNP, PF, 24-25, 30MCG/0.3ML, IM, 12YRS AND ABOVE (PFIZER) - INFLUENZA VAC., TRIVALENT, HD, PF, 65 AND ABOVE, 0.5 ML IM (FLUZONE HD) Follow Up: Return in about 4 months (around 11/12/2024), or if symptoms worsen or fail to improve. Teofilo Krishnamurthy DO 10:39 AM 07/12/2024 documented in this encounter Nursing Notes * Opal Trivedi LPN - 07/12/2024 10:10 AM EDT Here for follow up, states is getting some better every day. documented in this encounter Plan of Treatment Upcoming Encounters Date Type Department Care Team (Late st Contact Info) Description 11/14/2024 10:40 AM EST Office Visit Family Practice [address] [place] [address] [place] [address] [facility] [address] 01/06/2025 11:00 AM EDT Nurse Only Family Practice [address] [facility] [place] [address] [place] [phone] Opal Preston, RN [address] [facility] [phone] 02/22/2025 10:40 AM EDT Office Visit Rheumatology [facility] [address] [place] [address] Best Wilkins MD [address] [place] [address] Health Maintenance Due Date Last Done Comments [...] this encounter Medical Devices Implanted Type Area Direct Mail Coordinator Device Identifier Shelf Expiration Date Model / Serial / Lot Fidel Bio Composite X5 - [id number] Implanted:Qty: 3 on 07/02/2017 by Gael Stratton MD at OR [facility] Left: Shoulder [employer] 02/01/2019 AR-1927BCF / / [id number] Pushlock 4.5x24mm - [id number] Implanted:Qty: 3 on 07/02/2017 by Gael Stratton MD at OR [facility] Left: Shoulder [employer] 02/01/2019 AR-1922BC / / [id number] Lens Intraoc 19.0 - [id number] - [id number] Implanted:Qty: 1 on 12/26/2021 by Saurav Cohen MD at OR [facility] Left: Eye [employer]OMB 10/04/2026 [id number] / [id number] / [id number] Lens Intraoc 19.0 - [id number] - [id number] Implanted:Qty: 1 on 01/09/2022 by Saurav Cohen MD at OR [facility] Right: Eye BAUSCH [employer] LOMB 10/04/2026 [id number] / [id number] / [id number] documented as of this encounter Visit Diagnoses Diagnosis COPD, group B, by GOLD 2017 classification (HCC)- Primary Chronic respiratory failure with hypoxia (HCC) Chronic respiratory failure Obstructive sleep apnea of adult Obstructive sleep apnea (adult) (pediatric) BPH with obstruction/lower urinary tract symptoms Hypertrophy of prostate with urinary obstruction and other lower urinary tract symptoms (LUTS) Secondary erythrocytosis Polycythemia, secondary MCI (mild cognitive impairment) Mild cognitive impairment, so stated Gastroesophageal reflux disease without esophagitis Esophageal reflux Degeneration of intervertebral disc of lumbar region with discogenic back pain B12 deficiency Other B-complex deficiencies OAB (overactive bladder) 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
--- OUTSIDE RECORDS SUMMARY | 2024-11-25 12:23 | External Medical Summary | Summary of Care ---
Author Name Unknown Organization [facility] Address [address] [place] [address] Phone [phone] Care Team Providers Care Baby Registry Sales Consultant Name Role Phone Teofilo Krishnamurthy DO Primary Care Provider Reason for Visit * Reason Onset Date Comments Other 07/22/2024 Encounter Details Date Type Department Care Team (Latest Contact Info) Description 07/22/2024 Telephone HEALTH & WELLNESS Teofilo Krishnamurthy DO [address] [place] [address] Other Allergies No known active allergiesdocumented as of this encounter (statuses as of 07/26/2024) Medications Medication Sig Dispensed Refills Start Date [...] GASIndications:COPD, group B, by GOLD 2017 classification ([facility]) Administer into nostril 3 L/min(Oxygen) continuous [...] FOR PAIN, SEVERE. 60 Tablet 06/30/2024 Active Classics Rolling WalkerIndications:Ge neralized osteoarthritis,Degen eration of intervertebral disc of lumbar region with discogenic back pain Use as directed. Light, seat with brakes. 1 Each 07/24/2024 Active documented as of this encounter (statuses as of 07/26/2024) Active Problems Problem Noted Date Diagnosed Date [...] as of this encounter (statuses as of 07/26/2024) Resolved Problems Problem Noted Date Diagnosed Date Resolved Date Chronic respiratory failure, unsp w hypoxia or hypercapnia 10/07/2022 10/28/2022 Inflammatory polyarthritis 10/07/2022 0 10/16/2023 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, bilateral legs 10/07/2022 10/28/2022 Dementia without behavioral disturbance 08/08/2019 11/15/2020 Overview: ICD-10 update of inactive term Elevated hemoglobin 01/31/2019 05/14/20 20 Post herpetic neuralgia 10/19/20172 01/2018 Senile osteoporosis 01/19/2017 02/01/20 19 Neoplasm of [...] as of this encounter (statuses as of 07/26/2024) Immunizations Name Administration Dates Next Due COVID-19 mRNA, LNP-s, No Pre serve, 2-Dose Series ([facility]) 08/14/2021,12/11/2020,11/13/2020 COVID-19, LNP-s, No Preserve , Neal-sucrose, Ages 12+ (Pfizer) 04/22/2022 COVID-19, MRNA-LNP, 24-25, P R, 30MCG/0.3ML, IM, 12YRS AND ABOVE ([facility]) 07/12/2024 Covid-19, Mrna, Lnp-s, Pf, B ivalent, 30 Mcg, IM, 12 yrs and above ([facility] [place]) 10/07/2022 Pneumococcal Conjugate Vacc, 13 Valent (Prevnar) 01/31/2015 Pneumococcal Conjugate Vacci ne, 20-valent ([id number]) 07/12/2024 RSV Vac., Bivalent, Perfusio n F, [...] No 11/09/2023 Does the household have a [facility] source of income? (Household - for ages [...] Telephone Encounter - Teofilo Krishnamurthy DO - 07/24/2024 7:50 PM EDT Walker ordered. * Telephone Encounter - Opal Trivedi LPN - 07/22/2024 2:10 PM EDT Order pended. * Telephone Encounter - Teofilo Krishnamurthy DO - 07/22/2024 11:42 AM EDT Patient may have a walker. * Telephone Encounter - [facility] Mainframe Analyst - 07/22/2024 10:56 AM EDT Patient was in today for an exercise session to work on balance and stated that he is interested ingetting a rollator walker. He would like to walk more, but feels like he needs more assistance to feel steady and to help his back. He likes that he would be able to sit and take a break if his back would start to hurt. I informed him that I would send a message to Dr. Krishnamurthy to see if he could putin an order for one. documented in this encounter Plan of Treatment Upcoming Encounters Date Type Department Care Team (Late st Contact Info) Description 11/14/2024 10:40 AM EST Office Visit Family Practice [address] [place] [address] [address] [facility] [place] [address] Teofilo Krishnamurthy DO [address] [place] [address] 01/06/2025 11:00 AM EDT Nurse Only Family Practice [address] [facility] [address] [facility] [place] [phone] Opal Preston, PAPA 293 [facility] [place] [address] 02/22/2025 10:40 AM EDT Office Visit Rheumatology [address] [place] [address] Best Wilkins MD [address] [place] [address] Health Maintenance Due Date Last Done Comments [...] this encounter Medical Devices Implanted Type Area Undercoat Sprayer Device Identifier Shelf Expiration Date Model / Serial / Lot Mojganw Bio Composite X5 - [id number] Implanted:Qty: 3 on 07/02/2017 by Gael Stratton MD at [facility] Left: Shoulder [employer] 02/01/2019 AR-1927BCF / / [id number] [place] Pushlock 4.5x24mm - [id number] Implanted:Qty: 3 on 07/02/2017 by Gael Stratton MD at [facility] Left: Shoulder [employer] 02/01/2019 AR-1922BC / / [id number] Lens Intraoc 19.0 - [id number] - [id number] Implanted:Qty: 1 on 12/26/2021 by Saurav Cohen MD at OR [facility] Left: Eye [employer]USCH [employer] LOMB 10/04/2026 [id number] / [id number] / [id number] Lens Intraoc 19.0 - [id number] - [id number] Implanted:Qty: 1 on 01/09/2022 by Saurav Cohen MD at OR [facility] Right: Eye BAUSCH [employer] LOMB 10/04/2026 [id number] / [id number] / [id number] documented as of this encounter Visit Diagnoses Diagnosis GENERAL OSTEOARTHROSIS- Primary Generalized osteoarthrosis, unspecified site Degeneration of intervertebral disc of lumbar region with discogenic back pain documented in this encounter Care Teams Baby Registry Sales Consultant Relationship Specialty Start Date End Date Teofilo Krishnamurthy DO [address] [facility] [place] [address] PCP - General Internal Medicine 03/17/24 documented as of this encounter
--- OUTSIDE RECORDS SUMMARY | 2024-11-25 12:23 | External Medical Summary | Summary of Care ---
Author Name Unknown Organization [facility] Address [address] [place] [address] Phone [phone] Care Team Providers Care Child Caregiver Name Role Phone Teofilo Krishnamurthy DO Primary Care Provider [phone] Encounter Details Date Type Department Care Team (Late st Contact Info) Description 07/25/2024 Orders Only Outcomes Research Department [address] [place] [address] Mariana Ellington CHRA [facility] Other*[id number] Allergies No known active allergiesdocumented as of this encounter (statuses as of 07/25/2024) Medications Medication Sig Dispensed Refills Start Date [...] as of this encounter (statuses as of 07/25/2024) Active Problems Problem Noted Date Diagnosed Date Other atherosclerosis of donnie najam arteries of extremities, bilateral legs 10/16/2023 PAUL [...] as of this encounter (statuses as of 07/25/2024) Resolved Problems Problem Noted Date Diagnosed Date [...] as of this encounter (statuses as of 07/25/2024) Immunizations Name Administration Dates Next Due COVID-19 mRNA, LNP-s, No Pre serve, 2-Dose Series ([employer]) 08/14/2021,12/11/2020,11/13/2020 COVID-19, LNP-s, No Preserve , Neal-sucrose, Ages 12+ (Pfizer) 04/22/2022 COVID-19, MRNA-LNP, 24-25, P R, 30MCG/0.3ML, IM, 12YRS AND ABOVE ([employer]-Comirnat) 07/12/2024 Covid-19, Mrna, Lnp-s, Pf, B ivalent, 30 Mcg, IM, 12 yrs and above (Pfizer) 10/07/2022 Pneumococcal Conjugate Vacc, 13 Valent (Prevnar) 01/31/2015 Pneumococcal Conjugate Vacci ne, 20-valent ([id number]) 07/12/2024 RSV Vac., Bivalent, Perfusio n F, [...] 10:40 AM EST Office Visit Family Practice [address] [place] [address] [address] [place] [address] Teofilo Krishnamurthy, DO [address] [facility], [place] [address] 01/06/2025 11:00 AM EDT Nurse Only Family Practice 65 [facility] [address] [place] [phone] Opal Preston, PAPA 293 [facility], [place] [address] 02/22/2025 10:40 AM EDT Office Visit Rheumatology [address] [place] [address] Best Wilkins MD [facility] [employer] [place] [address] Scheduled Orders Name Type Priority Associated Diagnoses Orde r Schedule MYCODE SUBSEQUENT ADULT Lab Routine MyCode Research Other*[id number] Every 6 Months for 2 Occurrences starting 07/25/2024 until 08/14/2025 Health Maintenance Due Date Last Done Comments [...] this encounter Medical Devices Implanted Type Area Die Maker Device Identifier Shelf Expiration Date Model / Serial / Lot Fidel Bio Composite X5 - [id number] Implanted:Qty: 3 on 07/02/2017 by Gael Stratton MD at OR [facility] Left: Shoulder [employer] 02/01/2019 AR-1927BCF / / [id number] [place] Pushlock 4.5x24mm - [id number] Implanted:Qty: 3 on 07/02/2017 by Gael Stratton MD at OR [facility] Left: Shoulder [employer] 02/01/2019 AR-1922BC / / [id number] Lens Intraoc 19.0 - [id number] - [id number] Implanted:Qty: 1 on 12/26/2021 by Saurav Cohen MD at OR [facility] Left: Eye BAUSCH [employer] LOMB 10/04/2026 [id number] / [id number] / [id number] Lens Intraoc 19.0 - [id number] - [id number] Implanted:Qty: 1 on 01/09/2022 by Saurav Cohen MD at OR [facility] Right: Eye BAUSCH & LOMB 10/04/2026 [id number] / [id number] / [id number] documented as of this encounter Visit Diagnoses Diagnosis MyCode Research Other*[id number] documented in this encounter Care Teams Child Caregiver Relationship Specialty Start Date End Date Teofilo Krishnamurthy DO 293 [facility] [address] PCP - General Internal Medicine 03/17/24 documented as of this encounter
--- OUTSIDE RECORDS SUMMARY | 2024-11-25 12:23 | External Medical Summary | Summary of Care ---
Author Name Unknown Organization [facility] Address [address] [place] [address] Phone [phone] Care Team Providers Care Senior Environmental Engineer Name Role Phone Dayana Krishnamurthy DO Primary Care Provider [phone] Reason for Visit * Reason Comments Medication Refill Encounter Details Date Type Department Care Team (Late st Contact Info) Description 07/31/2024 Refill Family Practice [address], [place] 293 [place] [phone] Dayana Krishnamurthy DO [address] [place] [address] HTN, goal below 150/90 Allergies No known active allergiesdocumented as of this encounter (statuses as of 08/01/2024) Medications Medication Sig Dispensed Refills Start Date End Date Status Polyethylene Glycol 3350 17 GM/SCOOP Oral Powder Take 17 g by mouth every evening. Dissolve one heaping tablespoon in 8 ounces of water or juice. 1 Bottle 2 01/26/2018 Active Wheat Dextrin (BENEFIBER) powder Take by mouth daily. 01/26/2018 Active Cyanocobalamin (VITAMIN B-12) 1000 MCG TabletIndications:B 12 deficiency Take 1 Tablet by mouth in [...] mouth in the morning. Active oxygen IN GASIndications:COPD , group B, by GOLD 2017 classification ([facility]) Administer into nostril 3 L/min(Oxygen) continuous . 1 Each 07/04/2022 Active Vitamin D3 50 MCG (2000 UT) Oral Capsule Take 1 Capsule by mouth in the morning. 30 Capsule 5 08/14/2022 Active Donepezil HCl 10 MG Oral Tablet (Aricept)Indication s:MCI (mild cognitive impairment) TAKE ONE TABLET BY MOUTH BEFORE BEDTIME WITH LARGEST MEAL OF THE DAY 100 Tablet 3 07/31/2023 09/08/20 24 Active Calcium Citrate Plus Oral Tablet Take 1 Tablet by mouth in the morning. Active Potassium Citrate ER 10 MEQ (1080 MG) Oral Tablet Extended Release (Urocit-K)Indicatio ns:Calculus of kidney TAKE ONE TABLET BY MOUTH THREE TIMES A DAY 300 Tablet 3 11/20/2023 11/19/19 25 Active Omeprazole 20 MG Oral Capsule Delayed Release (PriLOSEC) TAKE ONE CAPSULE BY MOUTH EVERY DAY 100 Capsule 3 11/26/2023 11/25/19 25 Active amLODIPine Besylate 5 MG Oral Tablet (Norvasc)Indication s:HTN, goal below 150/90 take 1 tablet by mouth every morning 90 Tablet 3 11/29/2023 Active Mirtazapine 7.5 MG Oral Tablet (Remeron)Indication s:PAUL (generalized anxiety disorder) TAKE 1 TABLET BY MOUTH AT BEDTIME 90 Tablet 1 03/28/2024 Active Finasteride 5 MG Oral Tablet (Proscar) Take one tablet by mouth every day 90 Tablet 3 05/17/2024 Active Tamsulosin HCl 0.4 MG Oral Capsule (Flomax) Take one capsule by mouth every day 90 Capsule 3 05/17/2024 Active Gabapentin 100 MG Oral Capsule (Neurontin)Indicati ons:Lumbar degenerative disc disease TAKE 1 CAPSULE BY MOUTH IN THE MORNING AND 1 CAPSULE BY MOUTH AT NOON AND 1 CAPSULE BY MOUTH BEFORE BEDTIME 90 Capsule 5 06/26/2024 Active Trelegy Ellipta 100-62.5-25 MCG/ACT Aerosol Powder Breath Activated (Fluticasone-Umecli dinium-Vilanterol) Inhale 1 Puff by mouth daily. 180 Each 06/27/2024 Active traMADol HCl 50 MG Oral Tablet (Ultram)Indications :Generalized osteoarthritis TAKE 1 TABLET BY MOUTH 2 TIMES A DAY NEEDED FOR PAIN, SEVERE. 60 Tablet 06/30/2024 Active Classics Rolling WalkerIndications:G eneralized osteoarthritis,Dege neration of intervertebral disc of lumbar region with discogenic back pain Use as directed. Light, seat with brakes. 1 Each 07/24/2024 Active Losartan Potassium 25 MG Oral Tablet (Cozaar)Indications :HTN, goal below 150/90 TAKE ONE TABLET BY MOUTH IN THE MORNING 100 Tablet 1 08/01/2024 Active Losartan Potassium 25 MG Oral Tablet (Cozaar)Indications :HTN, goal below 150/90 TAKE ONE TABLET BY MOUTH IN THE MORNING 100 Tablet 1 01/19/2024 07/31/20 24 Discontinu ed(Refill) documented as of this encounter (statuses as of 08/01/2024) Active Problems Problem Noted Date Diagnosed Date [...] as of this encounter (statuses as of 08/01/2024) Resolved Problems Problem Noted Date Diagnosed Date [...] as of this encounter (statuses as of 08/01/2024) Immunizations Name Administration Dates Next Due COVID-19 mRNA, LNP-s, No Pre serve, 2-Dose Series ([employer]) 08/14/2021,12/11/2020,11/13/2020 COVID-19, LNP-s, No Preserve , Neal-sucrose, Ages 12+ ([employer]) 04/22/2022 COVID-19, MRNA-LNP, 24-25, P R, 30MCG/0.3ML, IM, 12YRS AND ABOVE ([employer]) 07/12/2024 Covid-19, Mrna, Lnp-s, Pf, B ivalent, 30 Mcg, IM, 12 yrs and above (Pfizer) 10/07/2022 Pneumococcal Conjugate Vacc, 13 Valent (Prevnar) 01/31/2015 Pneumococcal Conjugate Vacci ne, 20-valent ([id number]) 07/12/2024 RSV Vac., Bivalent, Perfusio n F, [...] No 11/09/2023 Does the household have a [facility] source of income? (Household [...] encounter Miscellaneous Notes * Telephone Encounter - Farzana Wasserman [facility] - 08/01/2024 4:30 PM EDT Signed Prescriptions: Disp Refills Losartan Potassium 25 MG Oral Tablet (Coza*100 Ta*1 Sig: TAKE ONE TABLET BY MOUTH IN THE MORNINGAuthorizing Provider: DAYANA KRISHNAMURTHY AOrdering User: FARZANA WASSERMAN documented in this encounter Plan of Treatment Upcoming Encounters Date Type Department Care Team (Late st Contact Info) Description 11/14/2024 10:40 AM EST Office Visit Family Practice [address] [place] [address] [address] [place] [address] Dayana Krishnamurthy, [address] [place] [address] 01/06/2025 11:00 AM EDT Nurse Only Family Practice [address] [place] [address] [address] [place] [phone] Opal Preston, PAPA [address] [place] [phone] 02/22/2025 10:40 AM EDT Office Visit Rheumatology [place] [address] [place] [address] Best Wilkins MD [address] [place] [address] Health Maintenance Due Date Last Done Comments [...] this encounter Medical Devices Implanted Type Area Air Defence Officer Device Identifier Shelf Expiration Date Model / Serial / Lot Fidel Bio Composite X5 - [id number] Implanted:Qty: 3 on 07/02/2017 by Gael Stratton MD at OR [facility] Left: Shoulder [employer] 02/01/2019 AR-1927BCF / / [id number] [place] Pushlock 4.5x24mm - [id number] Implanted:Qty: 3 on 07/02/2017 by Gael Stratton MD at OR [facility] Left: Shoulder [employer] 02/01/2019 AR-1922BC / / [id number] Lens Intraoc 19.0 - [id number] - [id number] Implanted:Qty: 1 on 12/26/2021 by Saurav Cohen MD at OR [facility] Left: Eye [employer] LOMB 10/04/2026 [id number] / [id number] / [id number] Lens Intraoc 19.0 - [id number] - [id number] Implanted:Qty: 1 on 01/09/2022 by Saurav Cohen MD at OR [facility] Right: Eye [employer] LOMB 10/04/2026 [id number] / [id number] / [id number] documented as of this encounter Visit Diagnoses Diagnosis HTN, goal below 150/90 documented in this encounter Care Teams Senior Environmental Engineer Relationship Specialty Start Date End Date Dayana Krishnamurthy DO [address] [place] [address] PCP - General Internal Medicine 03/17/24 documented as of this encounter
--- OUTSIDE RECORDS SUMMARY | 2024-11-25 12:23 | External Medical Summary | Summary of Care ---
Author Name Unknown Organization [facility] Address [address] [place] [address] Phone [phone] Care Team Providers Care Sand Cutter Name Role Phone Teofiol Krishnamurthy DO Primary Care Provider [phone] Encounter Details Date Type Department Care Team (Late st Contact Info) Description 07/20/2024 Documentation HEALTH & WELLNESS Pearl Pena, [employer] Allergies No known active allergiesdocumented as of this encounter (statuses as of 07/20/2024) Medications Medication Sig Dispensed Refills Start Date [...] GASIndications:COPD, group B, by GOLD 2017 classification ([facility]) Administer into nostril 3 L/min(Oxygen) continuous . [...] as of this encounter (statuses as of 07/20/2024) Active Problems Problem Noted Date Diagnosed Date [...] as of this encounter (statuses as of 07/20/2024) Resolved Problems Problem Noted Date Diagnosed Date [...] as of this encounter (statuses as of 07/20/2024) Immunizations Name Administration Dates Next Due COVID-19 mRNA, LNP-s, No Pre serve, 2-Dose Series ([employer]) 08/14/2021,12/11/2020,11/13/2020 COVID-19, LNP-s, No Preserve , Neal-sucrose, Ages 12+ ([employer]) 04/22/2022 COVID-19, MRNA-LNP, 24-25, P R, 30MCG/0.3ML, IM, 12YRS AND ABOVE ([employer] 07/12/2024 Covid-19, Mrna, Lnp-s, Pf, B ivalent, 30 Mcg, IM, 12 yrs and above (Pfizer) 10/07/2022 Pneumococcal Conjugate Vacc, 13 Valent (Prevnar) 01/31/2015 Pneumococcal Conjugate Vacci ne, 20-valent ([id number]) 07/12/2024 RSV Vac., Bivalent, Perfusio n F, [...] as of this encounter Progress Notes * Pearl Pena [employer] - 07/20/2024 11:12 AM EDT Visit Type: Return Wellness Return Visit Type: Group exercise Balance Training documented in this encounter Plan of Treatment Upcoming Encounters Date Type Department Care Team (Late st Contact Info) Description 07/22/2024 10:00 AM EDT Office Visit Family Practice 65 [facility] 293 [place] [address] [place], [employer] Fam Prac 65 [facility] [address] [facility], [place] [address] 11/14/2024 10:40 AM EST Office Visit Family Practice [address] [facility] 293 [place] [phone] Teofilo Krishnamurthy DO [address] [place] [address] 01/06/2025 11:00 AM EDT Nurse Only [facility] [address] [place] [address] [address] [place] [address] Opal Preston, PAPA [address] [place] [address] 02/22/2025 10:40 AM EDT Office Visit Rheumatology [facility] [address] [place] [place] [address] Best Wilkins MD [address] [place], [place] [address] Health Maintenance Due Date Last Done Comments [...] this encounter Medical Devices Implanted Type Area Director Long Term Care Device Identifier Shelf Expiration Date Model / Serial / Lot Michellecrew Bio Composite X5 - [id number] Implanted:Qty: 3 on 07/02/2017 by Gael Stratton MD at OR [facility] Left: Shoulder [employer] 02/01/2019 AR-1927BCF / / [id number] [place] Pushlock 4.5x24mm - [id number] Implanted:Qty: 3 on 07/02/2017 by Gael Stratton MD at OR [facility] Left: Shoulder [employer] 02/01/2019 AR-1922BC / / [id number] Lens Intraoc 19.0 - [id number] - [id number] Implanted:Qty: 1 on 12/26/2021 by Saurav Cohen MD at OR [facility] Left: Eye [employer]OMB 10/04/2026 [id number] / [id number] / [id number] Lens Intraoc 19.0 - [id number] - [id number] Implanted:Qty: 1 on 01/09/2022 by Saurav Cohen MD at OR [facility] Right: Eye [employer]OMB 10/04/2026 [id number] / [id number] / [id number] documented as of this encounter Care Teams Sand Cutter Relationship Specialty Start Date End Date Teofilo Krishnamurthy DO [address] [place] [address] PCP - General Internal Medicine 03/17/24 documented as of this encounter
--- OUTSIDE RECORDS SUMMARY | 2024-11-25 12:23 | External Medical Summary | Summary of Care ---
Author Name Unknown Organization [facility] Address [address] [place] [address] Phone [phone] Care Team Providers Care Dresser Tender Name Role Phone Dayana Krishnamurthy DO Primary Care Provider [phone] Reason for Visit * Reason Comments eRx-Medication Refill Encounter Details Date Type Department Care Team (Late st Contact Info) Description 08/04/2024 Refill Family Practice [address] [place] [address] [place] [phone] Dayana Krishnamurthy DO [address] [place], [place] [phone] GENERAL OSTEOARTHROSIS Allergies No known active allergiesdocumented as of this encounter (statuses as of 08/05/2024) Medications Medication Sig Dispensed Refills Start Date End Date Status Polyethylene Glycol 3350 17 GM/SCOOP Oral Powder Take 17 g by mouth every evening. Dissolve one heaping tablespoon in 8 ounces of water or juice. 1 Bottle 2 8 Active Wheat Dextrin (BENEFIBER) powder Take by mouth daily. 8 Active Cyanocobalamin (VITAMIN B-12) 1000 MCG TabletIndications:B 12 deficiency Take 1 Tablet by mouth in the morning. 8 Active Diclofenac Sodium 1 % External Gel apply 2 grams to affected area four times a day NEEDED FOR PAIN 300 g 5 0 Active CPAP every night at bedtime . Active Fluoridex 1.1 % Dental Paste (Sodium Fluoride) Take by mouth 1 Application Dosing Unit daily . 2 Active Vitamin C 500 MG Oral Tablet Chewable Take 1 Tablet by mouth in the morning. Active oxygen IN GASIndications:COPD , group B, by GOLD 2017 classification ([facility]) Administer into nostril 3 L/min(Oxygen) continuous . 1 Each 2 Active Vitamin D3 50 MCG (2000 UT) Oral Capsule Take 1 Capsule by mouth in the morning. 30 Capsule 5 2 Active Donepezil HCl 10 MG Oral Tablet (Aricept)Indication s:MCI (mild cognitive impairment) TAKE ONE TABLET BY MOUTH BEFORE BEDTIME WITH LARGEST MEAL OF THE DAY 100 Tablet 3 3 09/08/20 24 Active Calcium Citrate Plus Oral Tablet Take 1 Tablet by mouth in the morning. Active Potassium Citrate ER 10 MEQ (1080 MG) Oral Tablet Extended Release (Urocit-K)Indicatio ns:Calculus of kidney TAKE ONE TABLET BY MOUTH THREE TIMES A DAY 300 Tablet 3 4 11/19/19 25 Active Omeprazole 20 MG Oral Capsule Delayed Release (PriLOSEC) TAKE ONE CAPSULE BY MOUTH EVERY DAY 100 Capsule 3 4 11/25/19 25 Active amLODIPine Besylate 5 MG Oral Tablet (Norvasc)Indication s:HTN, goal below 150/90 take 1 tablet by mouth every morning 90 Tablet 3 4 Active Mirtazapine 7.5 MG Oral Tablet (Remeron)Indication s:PAUL (generalized anxiety disorder) TAKE 1 TABLET BY MOUTH AT BEDTIME 90 Tablet 1 4 Active Finasteride 5 MG Oral Tablet (Proscar) Take one tablet by mouth every day 90 Tablet 3 4 Active Tamsulosin HCl 0.4 MG Oral Capsule (Flomax) Take one capsule by mouth every day 90 Capsule 3 4 Active Gabapentin 100 MG Oral Capsule (Neurontin)Indicati ons:Lumbar degenerative disc disease TAKE 1 CAPSULE BY MOUTH IN THE MORNING AND 1 CAPSULE BY MOUTH AT NOON AND 1 CAPSULE BY MOUTH BEFORE BEDTIME 90 Capsule 5 4 Active Trelegy Ellipta 100-62.5-25 MCG/ACT Aerosol Powder Breath Activated (Fluticasone-Umecli dinium-Vilanterol) Inhale 1 Puff by mouth daily. 180 Each 4 Active Classics Rolling WalkerIndications:G eneralized osteoarthritis,Dege neration of intervertebral disc of lumbar region with discogenic back pain Use as directed. Light, seat with brakes. 1 Each 4 Active Losartan Potassium 25 MG Oral Tablet (Cozaar)Indications :HTN, goal below 150/90 TAKE ONE TABLET BY MOUTH IN THE MORNING 100 Tablet 1 4 Active traMADol HCl 50 MG Oral Tablet (Ultram)Indications :Generalized osteoarthritis TAKE 1 TABLET BY MOUTH 2 TIMES A DAY NEEDED FOR PAIN, SEVERE. 60 Tablet 4 Active traMADol HCl 50 MG Oral Tablet (Ultram)Indications :Generalized osteoarthritis TAKE 1 TABLET BY MOUTH 2 TIMES A DAY NEEDED FOR PAIN, SEVERE. 60 Tablet 4 08/05/20 24 Discontinued documented as of this encounter (statuses as of 08/05/2024) Active Problems Problem Noted Date Diagnosed Date [...] as of this encounter (statuses as of 08/05/2024) Resolved Problems Problem Noted Date Diagnosed Date [...] as of this encounter (statuses as of 08/05/2024) Immunizations Name Administration Dates Next Due COVID-19 mRNA, LNP-s, No Pre serve, 2-Dose Series ([employer]) 08/14/2021,12/11/2020,11/13/2020 COVID-19, LNP-s, No Preserve , Neal-sucrose, Ages 12+ ([employer]) 04/22/2022 COVID-19, MRNA-LNP, PF, 30 M CG/0.3 mL, 12 YRS AND ABOVE, IM ([employer]-Comirnaty) 07/12/2024 Covid-19, Mrna, Lnp-s, Pf, B ivalent, 30 Mcg, IM, 12 yrs and above (Pfizer) 10/07/2022 Pneumococcal Conjugate Vacc, 13 Valent (Prevnar) 01/31/2015 Pneumococcal Conjugate Vacci ne, 20-valent ([id number]) 07/12/2024 RSV Vac., Bivalent, Perfusio n F, [...] Telephone Encounter - Dayana Krishnamurthy DO - 08/05/2024 4:40 PM EDTSigned Prescriptions: Disp Refills traMADol HCl 50 MG Oral Tablet (Ultram) 60 Tab*0 Sig: TAKE 1 TABLET BY MOUTH 2 TIMES A DAY NEEDED FOR PAIN, SEVERE.Authorizing Provider: DAYANA KRISHNAMURTHY * Telephone Encounter - Dayana Krishnamurthy DO - 08/05/2024 4:39 PM EDT I have reviewed the patients controlled substance dispensing history in the Prescription Drug Monitoring Program in compliance with the [facility] regulations before prescribing a controlled substance. Last Tox Screen Results: No results found. However, due to the size of the patient record, not all encounters were searched.Please check Results Review for a complete set of results. Medication is due * Telephone Encounter - Shannon Garcia [facility] - 08/05/2024 12:32 PM EDT Pending Prescriptions: Disp Refills traMADol HCl 50 MG Oral Tablet [Pharmacy M*60 Tab*0 Sig: TAKE 1 TABLET BY MOUTH 2 TIMES A DAY NEEDED FOR PAIN, SEVERE. * Telephone Encounter - Shannon Garcia [facility] - 08/05/2024 12:31 PM EDT I have reviewed the patients controlled substance dispensing history in the Prescription Drug Monitoring Program in compliance with the [facility] regulations before prescribing a controlled substance. PDMP checked on 08/05/2024. Pending Prescriptions: Disp Refills traMADol HCl 50 MG Oral Tablet (Ultram) [*60 Tab*0 Sig: TAKE 1 TABLET BY MOUTH 2 TIMES A DAY NEEDED FOR PAIN, SEVERE. Last Visit: 07/12/2024 (in office), Visit date not found (telemedicine) Next Visit: 11/14/2024 Date medication was last filled: 06/30/24 Date medication is due for refill: 07/30/24 Pharmacy: [id number] [address] [facility] Is this request for a controlled substance? Yes and Urine Drug Screen Not completed Toxicology results: No results found. However, due to the size of the patient record, not all encounters were searched.Please check Results Review for a complete set of results. Please approve if appropriate. Thank you, Shannon Garcia PharmD, JUVE Clinical Pharmacist [facility] ([facility]) 08/05/24 12:31 PM [phone] documented in this encounter Plan of Treatment Upcoming Encounters Date Type Department Care Team (Late st Contact Info) Description 11/14/2024 10:40 AM EST Office Visit Family Practice [address] [place] [address] Dayana Krishnamurthy DO [address] [place] [address] 01/06/2025 11:00 AM EDT Nurse Only Family Practice 65 [facility] [address] [place] [address] Opal Preston RN [address] [place] [address] 02/22/2025 10:40 AM EDT Office Visit Rheumatology [place] [address] [place] [address] Best Wilkins MD [facility] [place] [address] Health Maintenance Due Date Last Done Comments [...] this encounter Medical Devices Implanted Type Area Process Improvement Manager Device Identifier Shelf Expiration Date Model / Serial / Lot MichelleLOCK8w Bio Composite X5 - [id number] Implanted:Qty: 3 on 07/02/2017 by Gael Stratton MD at OR [facility] Left: Shoulder [employer] 02/01/2019 AR-1927BCF / / [id number] [place] Pushlock 4.5x24mm - [id number] Implanted:Qty: 3 on 07/02/2017 by Gael Stratton MD at OR [facility] Left: Shoulder [employer] 02/01/2019 AR-1922BC / / [id number] Lens Intraoc 19.0 - [id number] - [id number] Implanted:Qty: 1 on 12/26/2021 by Saurav Cohen MD at OR [facility] Left: Eye [employer]CH [employer] LOMB 10/04/2026 [id number] / [id number] / [id number] Lens Intraoc 19.0 - [id number] - [id number] Implanted:Qty: 1 on 01/09/2022 by Saurav Cohen MD at OR [facility] Right: Eye [employer] LOMB 10/04/2026 [id number] / [id number] / [id number] documented as of this encounter Visit Diagnoses Diagnosis GENERAL OSTEOARTHROSIS Generalized osteoarthrosis, unspecified site documented in this encounter Care Teams Dresser Tender Relationship Specialty Start Date End Date Dayana Krishnamurthy DO [address] [place] [address] PCP - General Internal Medicine 03/17/24 documented as of this encounter
--- OUTSIDE RECORDS SUMMARY | 2024-11-25 12:23 | External Medical Summary | Summary of Care ---
Author Name Unknown Organization [facility] Address [address] [place] [address] Phone [phone] Care Team Providers Care Senior Engineering Specialist Name Role Phone Teofilo Krishnamurthy DO Primary Care Provider [phone] Reason for Visit * Reason Onset Date Comments Other 07/22/2024 Encounter Details Date Type Department Care Team (Latest Contact Info) Description 07/22/2024 Telephone HEALTH & WELLNESS Teofilo Krishnamurthy DO [address] [place] [address] Other Allergies No known active allergiesdocumented as [...] GASIndications:COPD, group B, by GOLD 2017 classification ([facility]) Administer into nostril 3 L/min(Oxygen) [...] mRNA, LNP-s, No Pre serve, 2-Dose Series (Medversant) 08/14/2021,12/11/2020,11/13/2020 COVID-19, LNP-s, No Preserve , Neal-sucrose, Ages 12+ (Pfizer) 04/22/2022 COVID-19, MRNA-LNP, 24-25, P R, 30MCG/0.3ML, IM, 12YRS AND ABOVE ([facility] 07/12/2024 Covid-19, Mrna, Lnp-s, Pf, B ivalent, 30 Mcg, IM, 12 yrs and above (Medversant) 10/07/2022 Pneumococcal Conjugate Vacc, 13 Valent (Prevnar) 01/31/2015 Pneumococcal Conjugate Vacci ne, 20-valent ([id number]) 07/12/2024 RSV Vac., Bivalent, Perfusio n F, [...] No 11/09/2023 Does the household have a [facility] source of income? (Household - for ages [...] * Telephone Encounter - Pearl Pena Health Wine Specialist - 07/22/2024 10:56 AM EDT Patient was [...] 10:40 AM EST Office Visit Family Practice [address] [place] [address] 293 [facility] [place] [address] Teofilo Krishnamurthy DO 293 [place] [address] 01/06/2025 11:00 AM EDT Nurse Only Family Practice [facility] 293 [facility] [place] [id number] Opal Preston, PAPA 293 [facility] [address] 02/22/2025 10:40 AM EDT Office Visit Rheumatology [address] [place] [address] Best Wilkins MD [address] [place] [address] Health Maintenance Due Date Last Done Comments [...] this encounter Medical Devices Implanted Type Area Channel Program Manager Device Identifier Shelf Expiration Date Model / Serial / Lot Mojganw Bio Composite X5 - [id number] Implanted:Qty: 3 on 07/02/2017 by Gael Stratton MD at OR [facility] Left: Shoulder [employer] 02/01/2019 AR-1927BCF / / [id number] [place] Pushlock 4.5x24mm - [id number] Implanted:Qty: 3 on 07/02/2017 by Gael Stratton MD at OR [facility] Left: Shoulder [employer] 02/01/2019 AR-1922BC / / [id number] Lens Intraoc 19.0 - [id number] - [id number] Implanted:Qty: 1 on 12/26/2021 by Saurav Cohen MD at OR [facility] Left: Eye BAUSCH [employer] LOMB 10/04/2026 [id number] / [id number] / [id number] Lens Intraoc 19.0 - [id number] - [id number] Implanted:Qty: 1 on 01/09/2022 by Saurav Cohen MD at OR [facility] Right: Eye BAUSCH & LOMB 10/04/2026 [id number] / [id number] / [id number] documented as of this encounter Visit Diagnoses Diagnosis GENERAL OSTEOARTHROSIS- Primary Generalized osteoarthrosis, unspecified site Degeneration of intervertebral disc of lumbar region with discogenic back pain documented in this encounter Care Teams Senior Engineering Specialist Relationship Specialty Start Date End Date Teofilo Krishnamurthy DO [address] [facility] [address] PCP - General Internal Medicine 03/17/24 documented as of this encounter
--- OUTSIDE RECORDS SUMMARY | 2024-11-25 12:23 | External Medical Summary | Summary of Care ---
Author Name Unknown Organization [facility] Address [address] [place] [address] Phone [phone] Care Team Providers Care Welder Gas Automatic Name Role Phone Teofilo Krishnamurthy DO Primary Care Provider [phone] Reason for Visit * Reason Onset Date Comments Other 07/22/2024 Encounter Details Date Type Department Care Team (Latest Contact Info) Description 07/22/2024 Telephone HEALTH & WELLNESS Teofilo Krishnamurthy DO [address] [place] [address] Other Allergies No known active allergiesdocumented as [...] GASIndications:COPD, group B, by GOLD 2017 classification ([facility]) Administer into nostril 3 L/min(Oxygen) [...] mRNA, LNP-s, No Pre serve, 2-Dose Series (M[employer]) 08/14/2021,12/11/2020,11/13/2020 COVID-19, LNP-s, No Preserve , Neal-sucrose, Ages 12+ (Pfizer) 04/22/2022 COVID-19, MRNA-LNP, 24-25, P R, 30MCG/0.3ML, IM, 12YRS AND ABOVE ([facility]) 07/12/2024 Covid-19, Mrna, Lnp-s, Pf, B ivalent, 30 Mcg, IM, 12 yrs and above ([employer]) 10/07/2022 Pneumococcal Conjugate Vacc, 13 Valent (Prevnar) 01/31/2015 Pneumococcal Conjugate Vacci ne, 20-valent ([id number]) 07/12/2024 Pneumococcal Polysaccharide PPV23 (Pneumovax) 11/04/2004 RSV Vac., Bivalent, Perfusio n F, Pf,0.5 Ml (Abrysvo) 01/04/2024 Season Influenza, Quad, PF, Adjuvanted, 65+ Yrs, IM (FLUAD) 06/14/2020 Seasonal Influenza Vac., MDV , IM, 0.5 mL (Fluzone) 06/13/2015,06/29/2014,06/25/2013,08/05,07/14/2011,07/14/2010,06/08/2009 ,07/19/2008,08/19/2006 Seasonal Influenza, High Dos e, Trivalent, PF, [...] encounter Miscellaneous Notes * Telephone Encounter - Opal Trivedi LPN - 07/26/2024 4:43 PM EDT Order placed thru [facility]. * Telephone Encounter - Teofilo Krishnamurthy DO - 07/24/2024 7:50 PM EDT Walker ordered. * Telephone Encounter - Opal Trivedi LPN - 07/22/2024 2:10 PM EDT Order pended. * Telephone Encounter - Teofilo Krishnamurthy DO - 07/22/2024 11:42 AM EDT Patient may have a walker. * Telephone Encounter - Pearl Pena Health News Gathering Technician - 07/22/2024 10:56 AM EDT Patient was [...] AM EST Office Visit Family Practice 65 [facility] 293 [place] [address] Teofilo Krishnamurthy DO 293 [place] [address] 01/06/2025 11:00 AM EDT Nurse Only Family Practice 65 [facility] 293 [place] [address] Opal Preston, PAPA [facility] [address] 02/22/2025 10:40 AM EDT Office Visit Rheumatology [place] [address] [facility] [place] [address] Best Wilkins MD [address] [place] [address] Health Maintenance Due Date Last Done Comments [...] this encounter Medical Devices Implanted Type Area Business Controller Device Identifier Shelf Expiration Date Model / Serial / Lot Fidel Bio Composite X5 - [id number] Implanted:Qty: 3 on 07/02/2017 by Gael Stratton MD at OR [facility] Left: Shoulder [employer] 02/01/2019 AR-1927BCF / / [id number] [place] Pushlock 4.5x24mm - [id number] Implanted:Qty: 3 on 07/02/2017 by Gael Stratton MD at OR [facility] Left: Shoulder [employer] 02/01/2019 AR-1922BC / / [id number] Lens Intraoc 19.0 - [id number] - [id number] Implanted:Qty: 1 on 12/26/2021 by Saurav Cohen MD at OR [facility] Left: Eye BAUSCH [employer] LOMB 10/04/2026 [id number] / [id number] / [id number] Lens Intraoc 19.0 - [id number] - [id number] Implanted:Qty: 1 on 01/09/2022 by Saurav Cohen MD at OR [facility] Right: Eye BAUSCH & LOMB 10/04/2026 [id number] / [id number] / [id number] documented as of this encounter Visit Diagnoses Diagnosis GENERAL OSTEOARTHROSIS- Primary Generalized osteoarthrosis, unspecified site Degeneration of intervertebral disc of lumbar region with discogenic back pain documented in this encounter Care Teams Welder Gas Automatic Relationship Specialty Start Date End Date Teofilo Krishnamurthy DO [address] [place] [address] PCP - General Internal Medicine 03/17/24 documented as of this encounter
--- OUTSIDE RECORDS SUMMARY | 2024-11-25 12:23 | External Medical Summary | Summary of Care ---
Author Name Unknown Organization [facility] Address [address] [place] [address] Phone [phone] Care Team Providers Care Computer Technology Instructor Name Role Phone Teofilo Krishnamurthy DO Primary Care Provider [phone] Reason for Visit * Reason Onset Date Comments Other 07/22/2024 Encounter Details Date Type Department Care Team (Latest Contact Info) Description 07/22/2024 Telephone HEALTH & WELLNESS Teofilo Krishnamurthy DO [address] [place] [address] Other Allergies No known active allergiesdocumented as [...] B, by GOLD 2017 classification ([facility]) Administer into nostril 3 L/min(Oxygen) continuous [...] mRNA, LNP-s, No Pre serve, 2-Dose Series ([employer]) 08/14/2021,12/11/2020,11/13/2020 COVID-19, LNP-s, No Preserve , Neal-sucrose, Ages 12+ (Pfizer) 04/22/2022 COVID-19, MRNA-LNP, 24-25, P R, 30MCG/0.3ML, IM, 12YRS AND ABOVE ([facility] 07/12/2024 Covid-19, Mrna, Lnp-s, Pf, B ivalent, 30 Mcg, IM, 12 yrs and above ([employer]) 10/07/2022 Pneumococcal Conjugate Vacc, 13 Valent (Prevnar) 01/31/2015 Pneumococcal Conjugate Vacci ne, 20-valent ([id number]) 07/12/2024 RSV Vac., Bivalent, Perfusio n F, [...] No 11/09/2023 Does the household have a [facility] source of income? (Household - for ages [...] * Telephone Encounter - Pearl Pena Health Commercial Manager - 07/22/2024 10:56 AM EDT Patient was [...] 10:40 AM EST Office Visit Family Practice [address] [place] [address] 293 [place] [address] Teofilo Krishnamurthy DO 293 [place] [address] 01/06/2025 11:00 AM EDT Nurse Only Family Practice 65 [facility] 293 [place] [phone] Opal Preston, PAPA 293 [place] [address] 02/22/2025 10:40 AM EDT Office Visit Rheumatology [address] [place] [address] Best Wilkins MD [address] [place] [address] Health Maintenance Due Date Last Done Comments [...] this encounter Medical Devices Implanted Type Area Rn School Device Identifier Shelf Expiration Date Model / Serial / Lot Mojganw Bio Composite X5 - [id number] Implanted:Qty: 3 on 07/02/2017 by Gael Stratton MD at OR [facility] Left: Shoulder [employer] 02/01/2019 AR-1927BCF / / [id number] [place] Pushlock 4.5x24mm - [id number] Implanted:Qty: 3 on 07/02/2017 by Gael Stratton MD at OR [facility] Left: Shoulder [employer] 02/01/2019 AR-1922BC / / [id number] Lens Intraoc 19.0 - [id number] - [id number] Implanted:Qty: 1 on 12/26/2021 by Saurav Cohen MD at OR [facility] Left: Eye [employer]USCH [employer] LOMB 10/04/2026 [id number] / [id number] / [id number] Lens Intraoc 19.0 - [id number] - [id number] Implanted:Qty: 1 on 01/09/2022 by Saurav Cohen MD at OR [facility] Right: Eye BAUSCH & LOMB 10/04/2026 [id number] / [id number] / [id number] documented as of this encounter Visit Diagnoses Diagnosis GENERAL OSTEOARTHROSIS- Primary Generalized osteoarthrosis, unspecified site Degeneration of intervertebral disc of lumbar region with discogenic back pain documented in this encounter Care Teams Computer Technology Instructor Relationship Specialty Start Date End Date Teofilo Krishnamurthy DO 293 [place] [address] PCP - General Internal Medicine 03/17/24 documented as of this encounter
--- OUTSIDE RECORDS SUMMARY | 2024-11-25 12:23 | External Medical Summary | Summary of Care ---
Author Name Unknown Organization [facility] Address [address] [place] [address] Phone [phone] Care Team Providers Care Assistant Analyst Name Role Phone Teofilo Krishnamurthy DO Primary Care Provider [phone] Encounter Details Date Type Department Care Team (Late st Contact Info) Description 07/22/2024 Documentation HEALTH & WELLNESS Pearl Pena, Health Rooming House Operator Allergies No known active allergiesdocumented as of this encounter (statuses as of 07/22/2024) Medications Medication Sig Dispensed Refills Start Date [...] GASIndications:COPD, group B, by GOLD 2017 classification ([facility]) Administer into nostril 3 L/min(Oxygen) [...] as of this encounter (statuses as of 07/22/2024) Active Problems Problem Noted Date Diagnosed Date [...] as of this encounter (statuses as of 07/22/2024) Resolved Problems Problem Noted Date Diagnosed Date [...] as of this encounter (statuses as of 07/22/2024) Immunizations Name Administration Dates Next Due COVID-19 mRNA, LNP-s, No Pre serve, 2-Dose Series ([employer]) 08/14/2021,12/11/2020,11/13/2020 COVID-19, LNP-s, No Preserve , Neal-sucrose, Ages 12+ ([employer]) 04/22/2022 COVID-19, MRNA-LNP, 24-25, P R, 30MCG/0.3ML, IM, 12YRS AND ABOVE ([facility]) 07/12/2024 Covid-19, Mrna, Lnp-s, Pf, B ivalent, 30 Mcg, IM, 12 yrs and above (Pfizer) 10/07/2022 Pneumococcal Conjugate Vacc, 13 Valent (Prevnar) 01/31/2015 Pneumococcal Conjugate Vacci ne, 20-valent ([id number]) 07/12/2024 RSV Vac., Bivalent, Perfusio n F, [...] encounter Progress Notes * Pearl Pena Health Rooming House Operator - 07/22/2024 11:07 AM EDT Visit Type: Return Wellness Return Visit Type: 1:1 Patient completed 1on1 exercise session for balance training. documented in this encounter Plan of Treatment Upcoming Encounters Date Type Department Care Team (Late st Contact Info) Description 11/14/2024 10:40 AM EST Office Visit Family Practice [address], [place] 293 [place] [address] Teofilo Krishnamurthy, DO 293 [facility], [place] [address] 01/06/2025 11:00 AM EDT Nurse Only Family Practice [address] [place] [address] [place] [address] Opal Preston, PAPA [address] [place] [address] 02/22/2025 10:40 AM EDT Office Visit Rheumatology [facility] [address] [place] [place] [address] Best Wilkins MD [address] [employer] [place] [address] Health Maintenance Due Date Last Done Comments [...] this encounter Medical Devices Implanted Type Area Sports Intern Device Identifier Shelf Expiration Date Model / Serial / Lot Fidel Bio Composite X5 - [id number] Implanted:Qty: 3 on 07/02/2017 by Gael Stratton MD at OR [facility] Left: Shoulder [employer] 02/01/2019 AR-1927BCF / / [id number] [place] Pushlock 4.5x24mm - [id number] Implanted:Qty: 3 on 07/02/2017 by Gael Stratton MD at OR [facility] Left: Shoulder [employer] 02/01/2019 AR-1922BC / / [id number] Lens Intraoc 19.0 - [id number] - [id number] Implanted:Qty: 1 on 12/26/2021 by Saurav Cohen MD at OR [facility] Left: Eye BAUSCH [employer] LOMB 10/04/2026 [id number] / [id number] / [id number] Lens Intraoc 19.0 - [id number] - [id number] Implanted:Qty: 1 on 01/09/2022 by Saurav Cohen MD at OR [facility] Right: Eye BAUSCH & LOMB 10/04/2026 [id number] / [id number] / [id number] documented as of this encounter Care Teams Assistant Analyst Relationship Specialty Start Date End Date Teofilo Krishnamurthy DO [address] [place] [address] PCP - General Internal Medicine 03/17/24 documented as of this encounter
--- OUTSIDE RECORDS SUMMARY | 2024-11-25 12:24 | External Medical Summary | Summary of Care ---
Author Name Unknown Organization [facility] Address [address] [place] [address] Phone [phone] Care Team Providers Care Meter Supervisor Name Role Phone Teofilo Krishnamurthy DO Primary Care Provider [phone] Reason for Visit * Reason Comments Follow Up Encounter Details Date Type Department Care Team (Latest Contact Info) Description 07/12/2024 10:00 AM EDT Office Visit Family Practice [facility] [place] [address] [place] [address] Teofilo Krishnamurthy DO 293 [place] [address] COPD, group B, by GOLD 2017 classification ([facility])*; Chronic respiratory failure with hypoxia (HCC); Obstructive sleep apnea of adult; BPH with obstruction/lower urinary tract symptoms; Secondary erythrocytosis; MCI (mild cognitive impairment); Gastroesophageal reflux disease without esophagitis; Degeneration of intervertebral disc of lumbar region with discogenic back pain; B12 deficiency; OAB (overactive bladder); Other atherosclerosis of houlton arteries of extremities, bilateral legs (HCC); Need for vaccination against Streptococcus pneumoniae; HTN, goal below 150/90 Allergies No known active allergiesdocumented as of this encounter (statuses as of 07/12/2024) Medications Medication Sig Dispensed Refills Start Date [...] GASIndications:COPD, group B, by GOLD 2017 classification ([facility]) Administer into nostril 3 L/min(Oxygen) [...] as of this encounter (statuses as of 07/12/2024) Active Problems Problem Noted Date Diagnosed Date [...] as of this encounter (statuses as of 07/12/2024) Resolved Problems Problem Noted Date Diagnosed Date [...] as of this encounter (statuses as of 07/12/2024) Immunizations Name Administration Dates Next Due COVID-19 mRNA, LNP-s, No Pre serve, 2-Dose Series ([employer]) 08/14/2021,12/11/2020,11/13/2020 COVID-19, LNP-s, No Preserve , Neal-sucrose, Ages 12+ ([employer]) 04/22/2022 COVID-19, MRNA-LNP, 24-25, P R, 30MCG/0.3ML, IM, 12YRS AND ABOVE ([employer]ories-Comirnaty) 07/12/2024 Covid-19, Mrna, Lnp-s, Pf, B ivalent, 30 Mcg, IM, 12 yrs and above (Pfizer) 10/07/2022 Pneumococcal Conjugate Vacc, 13 Valent (Prevnar) 01/31/2015 Pneumococcal Conjugate Vacci ne, 20-valent ([id number]) 07/12/2024 RSV Vac., Bivalent, Perfusio n F, [...] PAUL (generalized anxiety disorder) Other atherosclerosis of houlton arteries of extremities, bilateral legs (HCC) Current [...] Ellipta 100-62.5-25 MCG/ACT Aerosol Powder Breath Activated (Cxtkbhrmpgg-Pwoitjdfcboa-Cddxmudrom) Inhale 1 Puff by mouth daily. 180 [...] by Gael Stratton Jr., MD at OR [facility] COLONOSCOPY THRU STOMA, W/BIOPSY 03/18/2013 adenomatous polyps COLONOSCOPY, DIAGNOSTIC (RECTUM) 02/16/2007 repeat in 5 years COLONOSCOPY, DIAGNOSTIC (RECTUM) 07/19/2012 tubulovillous adenoma w/ high grade dysplasia repeat in 6 mos COLONOSCOPY, DIAGNOSTIC (RECTUM) 04/10/2014 diverticulosis, repeat 3 yrs/done @ [facility] COLONOSCOPY, DIAGNOSTIC (RECTUM) 01/30/2017 diverticulosis, repeat 3 yrs/COLONOSCOPY FLEXIBLE PROXIMAL DIAGNOSTIC performed by Juanpablo Valencia MD at ENDOSCOPY [facility] COLONOSCOPY, DIAGNOSTIC (RECTUM) 07/11/2020 diverticulosis / COLONOSCOPY FLEXIBLE PROXIMAL DIAGNOSTIC performed by Juanpablo Valencia MD at ENDOSCOPY [facility] COLONOSCOPY, SURGERY REFERRAL OP 2002 due 2007 EGD, FLEXIBLE, DIAGNOSTIC 05/23/2015 inflammation on bx, eso stricture/[facility] EGD, FLEXIBLE, DIAGNOSTIC 01/30/2017 chronic esophagitis/ESOPHAGOGASTRODUODENOSCOPY (EGD), FLEXIBLE, TRANSORAL, DIAGNOSTIC performed by Juanpablo Valencia MD at ENDOSCOPY [facility] EGD, FLEXIBLE, W/BIOPSY 03/07/2009 med hiatal [...] Gael Stratton Jr., MD at [facility] REMOVE CATARACT, INSERT LENS PROSTH Left 12/26/2021 Left EXTRACAPSULAR CATARACT REMOVAL WITH INTRAOCULAR LENS performed by Saurav Cohen MD at [facility] REMOVE CATARACT, INSERT LENS PROSTH Right 01/09/2022 Right EXTRACAPSULAR CATARACT REMOVAL WITH INTRAOCULAR LENS performed by Saurav Cohen MD at OR [facility] REPAIR RUPTURED ROTATOR CUFF, CHRON Right 07/02/2017 Mini Open Chronic Rotator Cuff Repair performed by Gael Stratton Jr., MD at OR [facility] SHOULDER ARTHROSCOPY SURGERY Left 07/02/2017 ARTHROSCOPY SHOULDER DISTAL CLAVICLE RESECTION performed by Gael Stratton Jr., MD at OR [facility] SHOULDER ARTHROSCOPY/DECOMPRESSION Left 07/02/2017 ARTHROSCOPY SHOULDER SUBACROMIAL DECOMPRESSION performed by Gael Stratton Jr., MD at OR [facility] Review of patient's allergies indicates: No [...] 12 OAB (overactive bladder) Other atherosclerosis of houl[place] arteries of extremities, bilateral legs ([facility]) Need for vaccination against Streptococcus pneumoniae - PNEUMOCOCCAL VACC, PCV20, IM ([id number]) HTN, goal below 150/90 Continue Losartan and [...] EST Office Visit Family Practice [address] [place] 293 [place] [address] Teofilo [facility]ur[facility] DO [address] [facility] [address] 01/06/2025 11:00 AM EDT Nurse Only Family Practice [facility] [place] [address] [place] [phone] Opal Preston, RN 293 [place] [phone] 02/22/2025 10:40 AM EDT Office Visit Rheumatology [facility] [address] [place] [address] Best Wilkins MD [address] [employer] [place] [address] Health Maintenance Due Date Last Done Comments [...] this encounter Medical Devices Implanted Type Area Pin Attacher Device Identifier Shelf Expiration Date Model / Serial / Lot Fidel Bio Composite X5 - [id number] Implanted:Qty: 3 on 07/02/2017 by Gael Stratton MD at OR [facility] Left: Shoulder [employer] 02/01/2019 AR-1927BCF / / [id number] [place] Pushlock 4.5x24mm - [id number] Implanted:Qty: 3 on 07/02/2017 by Gael Stratton MD at OR [facility] Left: Shoulder [employer] 02/01/2019 AR-1922BC / / [id number] Lens Intraoc 19.0 - [id number] - [id number] Implanted:Qty: 1 on 12/26/2021 by Saurav Cohen MD at OR [facility] Left: Eye [employer]USCH [employer] LOMB 10/04/2026 [id number] / [id number] / [id number] Lens Intraoc 19.0 - [id number] - [id number] Implanted:Qty: 1 on 01/09/2022 by Saurav Cohen MD at OR [facility] Right: Eye [employer]CH [employer] LOMB 10/04/2026 [id number] / [id number] / [id number] documented as of this encounter Visit Diagnoses [...] bladder) 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
--- OUTSIDE RECORDS SUMMARY | 2024-11-25 12:24 | External Medical Summary | Summary of Care ---
Author Name Unknown Organization [facility] Address [address] [place] [address] Phone [phone] Care Team Providers Care Drum Attendant Name Role Phone Teofilo Krishnamurthy DO Primary Care Provider [phone] Reason for Referral * Precert (Within 24 hrs (call dept; emergent)) - Pending Review Specialty Diagnoses / Procedures Referred By Fito phelan Referred To Contact Radiology Diagnoses LLQ abdominal pain Procedures CT ABD/PELVIS W IV AND W ORAL CONTRAST Teofilo Krishnamurthy DO [address] [place] [address] Referral ID Status Reason Start Date Expiration Date V isits Requested Visits Authorized [id number] Pending Review 07/05/2024 999 999 Reason for Visit * Reason Comments Acute Encounter Details Date Type Department Care Team (Latest Contact Info) Description 07/05/2024 3:40 PM EDT Office Visit Family Practice [facility], [place] [address] [place] [address] Teofilo Krishnamurthy DO [address] [place] [address] LLQ abdominal pain*; Dark stools; COPD, group B, by GOLD 2017 classification (HCC); Chronic respiratory failure with hypoxia (HCC); HTN, goal below 150/90; Obstructive sleep apnea of adult; BPH with obstruction/lower urinary tract symptoms; MCI (mild cognitive impairment); Gastroesophageal reflux disease without esophagitis; B12 deficiency; OAB (overactive bladder) Allergies No known active allergiesdocumented as of this encounter (statuses as of 07/05/2024) Medications Medication Sig Dispensed Refills Start Date [...] GASIndications:COPD, group B, by GOLD 2017 classification (MUSC [...] as of this encounter (statuses as of 07/05/2024) Active Problems Problem Noted Date Diagnosed Date [...] as of this encounter (statuses as of 07/05/2024) Resolved Problems Problem Noted Date Diagnosed Date [...] as of this encounter (statuses as of 07/05/2024) Immunizations Name Administration Dates Next Due COVID-19 mRNA, LNP-s, No Pre serve, 2-Dose Series (Pfizer) 08/14/2021,12/11/2020,11/13/2020 COVID-19, LNP-s, No Preserve , Neal-sucrose, Ages 12+ (Pfizer) 04/22/2022 Covid-19, Mrna, Lnp-s, Pf, B ivalent, 30 Mcg, IM, 12 yrs and above (Pfizer) 10/07/2022 Pneumococcal Conjugate Vacc, 13 Valent (Prevnar) 01/31/2015 RSV Vac., Bivalent, Perfusio n F, Pf,0.5 Ml (Abrysvo) 01/04/2024 Season Influenza, Quad, PF, Adjuvanted, 65+ Yrs, IM (FLUAD) 06/14/2020 Seasonal Influenza Vac., MDV , IM, 0.5 mL (Fluzone) 06/13/2015,06/29/2014,06/25/2013,2011,07/14/2011,07/14/2010,06/08/2009,1 ,08/19/2006 Seasonal Influenza, Quadriva lent Hd (Fluzone Hd) [...] Sign Reading Time Taken Comments Blood Pressure 122/60 07/05/2024 11:02 AM EDT Pulse 64 07/05/2024 11:02 AM EDT Temperature 36.5 C (97.7 F) 07/05/2024 1 1:02 AM EDT Respiratory Rate 22 07/05/2024 11:0 2 AM EDT Oxygen Saturation 96% 07/05/2024 11: 02 AM EDT 3 LPM Inhaled Oxygen Concentration - - Weight 87.5 kg (192 lb 14.4 oz) 024 11:02 AM EDT Height 174.6 cm (5' 8.75") 07/05/2024 1 1:02 AM EDT Body Mass Index 28.69 07/05/2024 11:02 AM EDT documented in this encounter Progress Notes * Teofilo Krishnamurthy, DO - 07/05/2024 12:00 PM EDT SUBJECTIVE: Emmanuel Hung is a 84 year old male. 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 The patient has nausea, bloating, burping, flatus and abdominal pain for 4 days. Stool has been dark for 3 days. He did take pepto bismol. Chronic shortness of breath is unchanged. He continues to wear oxygen 3 L at all times. No chest pain is present. Chronic low back pain has worsened. Memory loss continues to worsen. Patient Active Problem List Diagnosis GENERAL OSTEOARTHROSIS [...] PAUL (generalized anxiety disorder) Other atherosclerosis of [place] arteries of extremities, bilateral legs (HCC) Current Outpatient Medications Medication Sig Dispense Refill Polyethylene Glycol 3350 17 GM/SCOOP Oral Powder Take 17 g by mouth every evening. Dissolve one heaping tablespoon in 8 ounces of water or juice. 1 Bottle 2 Cyanocobalamin (VITAMIN B-12) 1000 MCG Tablet Take [...] Ellipta 100-62.5-25 MCG/ACT Aerosol Powder Breath Activated (Wgrbxkiyvlg-Dcjoinsfhfxf-Bfyiapkpwh) Inhale 1 Puff by mouth daily. 180 Each 0 traMADol HCl 50 MG Oral Tablet (Ultram) TAKE 1 TABLET BY MOUTH 2 TIMES A DAY NEEDED FOR PAIN, SEVERE. 60 Tablet 0 Wheat Dextrin (BENEFIBER) powder Take by mouth daily. Diclofenac Sodium 1 % External Gel apply [...] performed by Gael Stratton Jr., MD at [facility] COLONOSCOPY THRU STOMA, W/BIOPSY 03/18/2013 adenomatous polyps COLONOSCOPY, DIAGNOSTIC (RECTUM) 02/16/2007 repeat in 5 years COLONOSCOPY, DIAGNOSTIC (RECTUM) 07/19/2012 tubulovillous adenoma w/ high grade dysplasia repeat in 6 mos COLONOSCOPY, DIAGNOSTIC (RECTUM) 04/10/2014 diverticulosis, repeat 3 yrs/done @ [facility] COLONOSCOPY, DIAGNOSTIC (RECTUM) 01/30/2017 diverticulosis, repeat 3 yrs/COLONOSCOPY FLEXIBLE PROXIMAL DIAGNOSTIC performed by Juanpablo Valencia MD at [facility] COLONOSCOPY, DIAGNOSTIC (RECTUM) 07/11/2020 diverticulosis / COLONOSCOPY FLEXIBLE PROXIMAL DIAGNOSTIC performed by Juanpablo Valencia MD at [facility] COLONOSCOPY, SURGERY REFERRAL OP 2002 due 2007 EGD, FLEXIBLE, DIAGNOSTIC 05/23/2015 inflammation on bx, eso stricture/[facility] EGD, FLEXIBLE, DIAGNOSTIC 01/30/2017 chronic esophagitis/ESOPHAGOGASTRODUODENOSCOPY (EGD), FLEXIBLE, TRANSORAL, DIAGNOSTIC performed by Juanpablo Valencia MD at [facility] EGD, FLEXIBLE, W/BIOPSY 03/07/2009 med hiatal hernia, [...] by Gael Stratton Jr., MD at [facility] REMOVE CATARACT, INSERT LENS PROSTH Left 12/26/2021 Left EXTRACAPSULAR CATARACT REMOVAL WITH INTRAOCULAR LENS performed by Saurav Cohen MD at [facility] REMOVE CATARACT, INSERT LENS PROSTH Right 01/09/2022 Right EXTRACAPSULAR CATARACT REMOVAL WITH INTRAOCULAR LENS performed by Saurav Cohen MD at [facility] REPAIR RUPTURED ROTATOR CUFF, CHRON Right 07/02/2017 Mini Open Chronic Rotator Cuff Repair performed by Gael Stratton Jr., MD at [facility] SHOULDER ARTHROSCOPY SURGERY Left 07/02/2017 ARTHROSCOPY SHOULDER DISTAL CLAVICLE RESECTION performed by Gael Stratton Jr., MD at [facility] SHOULDER ARTHROSCOPY/DECOMPRESSION Left 07/02/2017 ARTHROSCOPY SHOULDER SUBACROMIAL DECOMPRESSION performed by Gael Stratton Jr., MD at [facility] Review of patient's allergies indicates: No Known Allergies Review of Systems Constitutional: Positive for appetite change and fatigue. Negative for chills and fever. HENT: Negative for congestion, sore throat and trouble swallowing. Respiratory: Positive for shortness of breath. Negative for cough and wheezing. Cardiovascular: Negative for chest pain, palpitations and leg swelling. Gastrointestinal: Positive for abdominal pain. Negative for blood in stool, diarrhea, nausea and vomiting. Genitourinary: Negative for dysuria and hematuria. Chronic nocturia is unchanged Musculoskeletal: Positive for back pain and gait problem. Neurological: Negative for dizziness, syncope and headaches. Psychiatric/Behavioral: Positive for confusion and decreased concentration. Negative for sleep disturbance. OBJECTIVE: BP 122/60 | Pulse 64 | Temp 36.5 C (97.7 F) (Tympanic) | Resp 22 | Ht 1.746 m (5' 8.75") | Wt 87.5 kg (192 lb 14.4 oz) | SpO2 96% Comment: 3 LPM | BMI 28.69 kg/m | BSA 2.06 m Physical Exam [...] Palpations: Abdomen is soft. Tenderness: There is abdominal tenderness in the left lower quadrant. There is no guarding or rebound. Musculoskeletal: Right lower leg: No edema. Left lower leg: No edema. Neurological: Mental Status: He is alert. Mental status is at baseline. Motor: No weakness. Gait: Gait abnormal. Psychiatric: Cognition and Memory: Cognition is impaired. Memory is impaired. Results for orders placed or performed in visit on 07/05/24 COMPREHENSIVE METABOLIC PANEL Result Value Ref Range BUN 14 6 - 20 mg/dL CREATININE 1.0 0.6 - 1.2 mg/dL EGFR 71 >=60 mL/min SODIUM 141 135 - 146 mmol/L POTASSIUM 4.1 3.5 - 5.1 mmol/L CHLORIDE 106 98 - 107 mmol/L CO2 23 22 - 32 mmol/L ANION GAP 12 7 - 15 mmol/L GLUCOSE 99 70 - 120 mg/dL Albumin 3.8 3.8 - 5.0 g/dL AST 16 10 - 50 U/L Alkaline Phosphatase 76 35 - 130 U/L Bilirubin, Total 0.7 <=1.2 mg/dL CALCIUM 9.5 8.4 - 10.2 mg/dL Protein 6.8 6.0 - 8.3 g/dL ALT 6 (L) 10 - 50 U/L CBC Result Value Ref Range WBC 5.12 4.00 - 10.80 K/uL RBC 5.03 4.50 - 5.25 M/uL HGB 16.4 14.0 - 16.8 g/dL HCT 48.3 40.0 - 48.4 % MCV 96.0 82.0 - 99.5 fL MCH 32.6 27.0 - 34.0 pg MCHC 34.0 32.0 - 36.0 g/dL RDW 13.1 11.5 - 15.5 % PLT 151 140 - 400 K/uL MPV 11.1 6.6 - 11.1 fL DIFFERENTIAL, AUTOMATED Result Value Ref Range WBC 5.12 4.00 - 10.80 K/uL Neutrophils % 62.1 40.0 - 75.0 % Lymphocytes % 24.8 18.0 - 42.0 % Monocytes % 11.3 (H) 1.0 - 11.0 % Eosinophils % 1.4 0.0 - 6.0 % Basophils % 0.4 0.0 - 2.0 % Absolute Neutrophils 3.18 1.80 - 7.70 K/uL Absolute Lymphocytes 1.27 1.00 - 4.80 K/ul Absolute Monocytes 0.58 0.00 - 1.10 K/uL Absolute Eosinophils 0.07 0.00 - 0.70 K/uL Absolute Basophils 0.02 0.00 - 0.20 K/uL *Note: Due to a large number of results and/or encounters for the requested time period, some results have not been displayed. A complete set of results can be found in Results Review. PLAN AND ASSESSMENT: LLQ abdominal pain (Primary) - CT ABD/PELVIS W IV AND W ORAL CONTRAST; Future; Expected date: 07/05/2024 Labs reviewed with patient and his at visit Dark stools - FECAL OCCULT BLOOD, EIA; Future; Expected date: 07/05/2024 May be due to Pepto Bismol COPD, group B, by GOLD 2017 classification (HCC) Continue Trelegy Chronic respiratory failure with hypoxia (HCC) Continue Oxygen HTN, goal below 150/90 Continue Losartan and Amlodipine Obstructive sleep apnea of adult BPH with obstruction/lower urinary tract symptoms Continue Finasteride and Tamsulosin MCI (mild cognitive impairment) Gastroesophageal reflux disease without esophagitis B12 deficiency Continue B 12 OAB (overactive bladder) Follow-up: Return in about 1 week (around 07/12/2024), or if symptoms worsen or fail to improve. | Check-out note: Needs CT today Teofilo Krishnamurthy DO 12:00 PM 07/05/2024 documented in this encounter Nursing Notes * Opal Trivedi LPN - 07/05/2024 11:01 AM EDT See telephone encounter from today Labs and imaging have been done. documented in this encounter Plan of Treatment Upcoming Encounters Date Type Department Care Team (Late st Contact Info) Description 07/05/2024 2:30 PM EDT Imaging Radiology [address], [place] [address] [place] [address] 07/08/2024 12:30 PM EDT Office Visit Family Practice 65 [facility] [address] [facility] [phone] [employer] [facility] [address] [place] [address] 07/12/2024 10:00 AM EDT Office Visit Family Practice 65 [facility] [address] [facility] [phone] Teofilo Krishnamurthy, DO [address] [place] [address], [place] [address] 07/21/2024 11:00 AM EDT Office Visit Family Practice 65 [facility] [address] [facility] [phone] Teofilo Krishnamurthy, DO [address] [place] [address], [place] [address] 01/06/2025 11:00 AM EDT Nurse Only Family Practice [address] [place] [address], [place] [phone] Opal Preston, PAPA [address] [place] [phone] 02/22/2025 10:40 AM EDT Office Visit Rheumatology [place] [id number] [employer] [facility], [place] [address] Best Wilkins MD [facility] [employer] [address] Scheduled Orders Name Type Priority Associated Diagnoses Orde r Schedule CT ABD/PELVIS W IV AND W ORAL CONTRAST Medical Imaging STAT LLQ abdominal pain Expected: 07/05/2024, Expires: 08/05/2025 FECAL OCCULT BLOOD, EIA Lab Routine Dark stools Expected: 07/05/2024 (Approximate), Expires: 07/05/2025 Health Maintenance Due Date Last Done Comments Alpha-1 Antitrypsin 1958 COVID-19 Vaccine ( season) 2024 10/07/2022, 04/22/2022, 08/14/2021, Additional history exists Influenza Vaccine (FLU shot) (#1) 2024 07/07/2023, 06/25/2022, 07/12/2021, Additional history exists Adult Wellness Visit 01/03/2025 01/04/2024, 12/30/2022, 07/18/2021 Depression Screening 01/03/2025 01/04/2024 Albumin/Creatinine Ratio 06/25/2025 06/25/2022 O2 ASSESSMENT COMPLETED IN PAST YEAR FOR COPD 07/05/2025 07/05/2024 DXA Scan 02/21/2026 02/22/2024, 11/0 04/2018, 07/21/2016, Additional history exists DTap/Tdap Vaccines (3 - Td or Tdap) 09/11/2030 09/11/2020, 04/23/2015, 02/04/2006 Pneumococcal Vaccine: 65+ Years Completed 01/31/2015, 11/04/2004 Zoster Vaccines Completed 02/17/2020, 11/06, 04/14/2012 HPV (Gardasil) Vaccine Aged Out No lo nger eligible based on patient's age to complete this topic Hepatitis B Vaccine Aged Out No longe r eligible based on patient's age to complete this topic MENINGOCOCCAL (MENACTRA/MENVEO) Aged Out No longer eligible based on patient's age to complete this topic documented as of this encounter Medical Devices Implanted Type Area Agriculture Mechanic Device Identifier Shelf Expiration Date Model / Serial / Lot [employer] X5 - [id number] Implanted:Qty: 3 on 07/02/2017 by Gael Stratton MD at [facility] Left: Shoulder [employer] 02/01/2019 [id number] / / [id number] [place] 4.5x24mm - [id number] Implanted:Qty: 3 on 07/02/2017 by Gael Stratton MD at [facility] Left: Shoulder [employer] 02/01/2019 [id number] / / [id number] Lens Intraoc 19.0 - [id number] - [id number] Implanted:Qty: 1 on 12/26/2021 by Saurav Cohen MD at [facility] Left: Eye [employer] 10/04/2026 [id number] / [id number] / [id number] Lens Intraoc 19.0 - [id number] - [id number] Implanted:Qty: 1 on 01/09/2022 by Saurav Cohen MD at OR [facility] Right: Eye [employer] 10/04/2026 [id number] / [id number] / [id number] documented as of this encounter Visit Diagnoses Diagnosis LLQ abdominal pain- Primary Abdominal pain, left lower quadrant Dark stools Nonspecific abnormal finding in stool contents COPD, group B, by GOLD 2017 classification (HCC) Chronic respiratory failure with hypoxia (HCC) Chronic respiratory failure HTN, goal below 150/90 Obstructive sleep apnea of adult Obstructive sleep apnea (adult) (pediatric) BPH with obstruction/lower urinary tract symptoms Hypertrophy of prostate with urinary obstruction and other lower urinary tract symptoms (LUTS) MCI (mild cognitive impairment) Mild cognitive impairment, so stated Gastroesophageal reflux disease without esophagitis Esophageal reflux B12 deficiency Other B-complex deficiencies OAB (overactive bladder) Hypertonicity of bladder documented in this encounter Care Teams Drum Attendant Relationship Specialty Start Date End Date Teofilo Krishnamurthy DO [address] [place] [address] PCP - General Internal Medicine 03/17/24 documented as of this encounter
--- OUTSIDE RECORDS SUMMARY | 2024-11-25 12:24 | External Medical Summary | Summary of Care ---
Author Name Unknown Organization [facility] Address [address] [place] [address] Phone [phone] Care Team Providers Care Pbx Technician Name Role Phone Teofilo Krishnamurthy DO Primary Care Provider [phone] Reason for Referral * Precert (Within 24 hrs (call dept; emergent)) - Pending Review Specialty Diagnoses / Procedures Referred By Fito phelan Referred To Contact Radiology Diagnoses LLQ abdominal pain Procedures CT ABD/PELVIS W IV AND W ORAL CONTRAST Teofilo Krishnamurthy DO [address] [place] [address] Referral ID Status Reason Start Date Expiration Date V isits Requested Visits Authorized [id number] Pending Review 07/05/2024 999 999 Reason for Visit * Reason Comments Acute Encounter Details Date Type Department Care Team (Latest Contact Info) Description 07/05/2024 3:40 PM EDT Office Visit Family Practice 65 [facility] [place] [address] [place] [address] Teofilo Krishnamurthy DO [address] [place] [address] LLQ abdominal pain*; Dark stools; COPD, group B, by GOLD 2017 classification (HCC); Chronic respiratory failure with hypoxia (HCC); HTN, goal below 150/90; Obstructive sleep apnea of adult; BPH with obstruction/lower urinary tract symptoms; MCI (mild cognitive impairment); Gastroesophageal reflux disease without esophagitis; B12 deficiency; OAB (overactive bladder) Allergies No known active allergiesdocumented as of this encounter (statuses as of 07/06/2024) Medications Medication Sig Dispensed Refills Start Date [...] GASIndications:COPD, group B, by GOLD 2017 classification ([facility]) Administer into nostril 3 L/min(Oxygen) continuous . [...] as of this encounter (statuses as of 07/06/2024) Active Problems Problem Noted Date Diagnosed Date [...] as of this encounter (statuses as of 07/06/2024) Resolved Problems Problem Noted Date Diagnosed Date [...] as of this encounter (statuses as of 07/06/2024) Immunizations Name Administration Dates Next Due COVID-19 [...] PAUL (generalized anxiety disorder) Other atherosclerosis of [place] arteries of extremities, bilateral legs (HCC) Current [...] Ellipta 100-62.5-25 MCG/ACT Aerosol Powder Breath Activated (Fxvdowlgcnq-Xhbvkcgdwlll-Ebmbavhmks) Inhale 1 Puff by mouth daily. 180 [...] performed by Gael Stratton Jr., MD at [facility] COLONOSCOPY THRU STOMA, W/BIOPSY 03/18/2013 adenomatous polyps COLONOSCOPY, DIAGNOSTIC (RECTUM) 02/16/2007 repeat in 5 years COLONOSCOPY, DIAGNOSTIC (RECTUM) 07/19/2012 tubulovillous adenoma w/ high grade dysplasia repeat in 6 mos COLONOSCOPY, DIAGNOSTIC (RECTUM) 04/10/2014 diverticulosis, repeat 3 yrs/done @ [facility] COLONOSCOPY, DIAGNOSTIC (RECTUM) 01/30/2017 diverticulosis, repeat 3 yrs/COLONOSCOPY FLEXIBLE PROXIMAL DIAGNOSTIC performed by Juanpablo Valencia MD at [facility] COLONOSCOPY, DIAGNOSTIC (RECTUM) 07/11/2020 diverticulosis / COLONOSCOPY FLEXIBLE PROXIMAL DIAGNOSTIC performed by Juanpablo Valencia MD at ENDOSCOPY [facility] COLONOSCOPY, SURGERY REFERRAL OP 2002 due 2007 EGD, FLEXIBLE, DIAGNOSTIC 05/23/2015 inflammation on bx, eso stricture/[facility] EGD, FLEXIBLE, DIAGNOSTIC 01/30/2017 chronic esophagitis/ESOPHAGOGASTRODUODENOSCOPY (EGD), FLEXIBLE, TRANSORAL, DIAGNOSTIC performed by Juanpablo Valencia MD at ENDOSCOPY [facility] EGD, FLEXIBLE, W/BIOPSY 03/07/2009 med hiatal [...] by Gael Stratton Jr., MD at OR [facility] REMOVE CATARACT, INSERT LENS PROSTH Left 12/26/2021 Left EXTRACAPSULAR CATARACT REMOVAL WITH INTRAOCULAR LENS performed by Saurav Cohen MD at [facility] REMOVE CATARACT, INSERT LENS PROSTH Right 01/09/2022 Right EXTRACAPSULAR CATARACT REMOVAL WITH INTRAOCULAR LENS performed by Saurav Cohen MD at [facility] REPAIR RUPTURED ROTATOR CUFF, CHRON Right 07/02/2017 Mini Open Chronic Rotator Cuff Repair performed by Gael Stratton Jr., MD at [facility] SHOULDER ARTHROSCOPY SURGERY Left 07/02/2017 ARTHROSCOPY SHOULDER DISTAL CLAVICLE RESECTION performed by Gael Stratton Jr., MD at [facility] SHOULDER ARTHROSCOPY/DECOMPRESSION Left 07/02/2017 ARTHROSCOPY SHOULDER SUBACROMIAL DECOMPRESSION performed by Gael Stratton Jr., MD at [facility] Review of patient's allergies indicates: No Known [...] Care Team (Late st Contact Info) Description 07/12/2024 10:00 AM EDT Office Visit Family [facility] 65 [facility], [address] [place] [phone] Teofilo Krishnamurthy, DO [address] [place] [address] 07/21/2024 11:00 AM EDT Office Visit Family Practice 65 [facility] 293 [place] [address] Teofilo Krishnamurthy, [address] [place] [address] 01/06/2025 11:00 AM EDT Nurse Only [facility] Practice 65 [facility] 293 [place] [phone] Opal Preston, PAPA [address] [place] [phone] 02/22/2025 10:40 AM EDT Office Visit Rheumatology [facility] [address] [place] [address] Best Wilkins MD [address] [employer] [place] [address] Health Maintenance Due Date Last Done Comments [...] this encounter Medical Devices Implanted Type Area Diesel Crane Operator Device Identifier Shelf Expiration Date Model / Serial / Lot Corjosecrew Bio Composite X5 - [id number] Implanted:Qty: 3 on 07/02/2017 by Gael Stratton MD at OR [facility] Left: Shoulder [employer] 02/01/2019 AR-1927BCF / / [id number] [place] Pushlock 4.5x24mm - [id number] Implanted:Qty: 3 on 07/02/2017 by Gael Stratton MD at OR [facility] Left: Shoulder [employer] 02/01/2019 AR-1922BC / / [id number] Lens Intraoc 19.0 - [id number] - [id number] Implanted:Qty: 1 on 12/26/2021 by Saurav Cohen MD at OR [facility] Left: Eye BAUSCH [employer] LOMB 10/04/2026 [id number] / [id number] / [id number] Lens Intraoc 19.0 - [id number] - [id number] Implanted:Qty: 1 on 01/09/2022 by Saurav Cohen MD at OR [facility] Right: Eye BAUSCH & LOMB 10/04/2026 [id number] / [id number] / [id number] documented as of this encounter Results * CT ABD/PELVIS W IV AND W ORAL CONTRAST (07/05/2024 4:21 PM EDT) Anatomical Region Laterality Modality Body, Abdomen, Pelvis Computed T omography 07/05/2024 4:50 PM EDT Impressions 07/05/2024 4:48 PM EDT IMPRESSION: Colonic diverticulosis without evidence of acute diverticulitis. Narrative 07/05/2024 4:48 PM EDT EXAM: EXAM: CT ABD/PELVIS W IV AND W ORAL CONTRAST DATE TIME: 07/05/2024 - 07/05/2024 4:21 pm HISTORY: 84 y/o M LLQ pain- diverticulitis TECHNIQUE: CT of the Abdomen and Pelvis was performed with intravenous contrast. Positive oral contrast was administered. COMPARISON: CT abdomen and pelvis dated 08/23/2021 FINDINGS: LOWER CHEST: Within normal limits. LIVER: Within normal limits. BILE DUCTS: Normal caliber. GALLBLADDER: Cholecystectomy. SPLEEN: Within normal limits. PANCREAS: Pancreatic parenchymal atrophy. ADRENALS: Within normal limits. KIDNEYS/URETERS: Small nonobstructing right renal calculi. No hydronephrosis. Subcentimeter left renal hypodensities which are too small to characterize. BLADDER: Under distended, limiting evaluation. REPRODUCTIVE ORGANS: Coarse calcifications of the prostate. BOWEL: No bowel obstruction. A few colonic diverticula without diverticulitis.Appendix is normal. PERITONEUM: No ascites. VESSELS: Atherosclerotic changes. No abdominal aortic aneurysm. RETROPERITONEUM: No lymphadenopathy. ABDOMINAL WALL: Within normal limits. BONES: Degenerative changes of the spine. Procedure Note Madelin Aleman MD - 07/05/2024 EXAM: EXAM: CT ABD/PELVIS W IV AND W ORAL CONTRAST DATE TIME: 07/05/2024 - 07/05/2024 4:21 pm HISTORY: 84 y/o M LLQ pain- diverticulitis TECHNIQUE: CT of the Abdomen and Pelvis was performed with intravenous contrast.Positive oral contrast was administered. COMPARISON: CT abdomen and pelvis dated 08/23/2021 FINDINGS: LOWER CHEST: Within normal limits. LIVER: Within normal limits. BILE DUCTS: Normal caliber. GALLBLADDER: Cholecystectomy. SPLEEN: Within normal limits. PANCREAS: Pancreatic parenchymal atrophy. ADRENALS: Within normal limits. KIDNEYS/URETERS: Small nonobstructing right renal calculi. Nohydronephrosis. Subcentimeter left renal hypodensities which are toosmall to characterize. BLADDER: Under distended, limiting evaluation. REPRODUCTIVE ORGANS: Coarse calcifications of the prostate. BOWEL: No bowel obstruction. A few colonic diverticula withoutdiverticulitis.Appendix is normal. PERITONEUM: No ascites. VESSELS: Atherosclerotic changes. No abdominal aortic aneurysm. RETROPERITONEUM: No lymphadenopathy. ABDOMINAL WALL: Within normal limits. BONES: Degenerative changes of the spine. IMPRESSION IMPRESSION: Colonic diverticulosis without evidence of acute diverticulitis. Teofilo Krishnamurthy DO RAD CT * FECAL OCCULT BLOOD, EIA (07/05/2024 2:13 PM EDT) iFOBT Negative Negative 07/06/2024 8:07 AM EDT LABORATORY GM Stool Stool specimen / Unknown Non-blood Collection / Unknown 07/05/2024 2:13 PM EDT 07/05/2024 2:13 PM EDT Teofilo Krsihnamurthy DO LAB FLUID AND STOOL ORDERABLES LABORATORY [facility] [address], [place] [id number] documented in this encounter Visit Diagnoses Diagnosis LLQ abdominal [...] deficiencies OAB (overactive bladder) Hypertonicity of bladder LLQ abdominal pain Abdominal pain, left lower quadrant documented in this encounter Care Teams Pbx Technician Relationship Specialty Start Date End Date Teofilo Krishnamurthy DO [address] [place] [address] PCP - General Internal Medicine 03/17/24 documented as of this encounter
--- OUTSIDE RECORDS SUMMARY | 2024-11-25 12:24 | External Medical Summary | Summary of Care ---
Author Name Unknown Organization [facility] Address [address] [place] [address] Phone [phone] Care Team Providers Care Supervisor Poultry Processing Name Role Phone Teofilo Krishnamurthy DO Primary Care Provider [phone] Encounter Details Date Type Department Care Team (Late st Contact Info) Description 07/13/2024 Documentation [facility]ALTH & WELLNESS Pearl Pena, Health Dining Room Server Allergies No known active allergiesdocumented as of [...] B, by GOLD 2017 classification ([facility]) Administer into nostril 3 L/min(Oxygen) [...] mRNA, LNP-s, No Pre serve, 2-Dose Series ([facility]) 08/14/2021,12/11/2020,11/13/2020 COVID-19, LNP-s, No Preserve , Neal-sucrose, Ages 12+ (Pfizer) 04/22/2022 COVID-19, MRNA-LNP, 24-25, P R, 30MCG/0.3ML, IM, 12YRS AND ABOVE ([facility] 07/12/2024 Covid-19, Mrna, Lnp-s, Pf, B ivalent, 30 Mcg, IM, 12 yrs and above (Pfizer) 10/07/2022 Pneumococcal Conjugate Vacc, 13 Valent (Prevnar) 01/31/2015 Pneumococcal Conjugate Vacci ne, 20-valent ([id number]) 07/12/2024 RSV Vac., Bivalent, Perfusio n F, [...] encounter Progress Notes * Pearl Pena Health Dining Room Server - 07/13/2024 12:00 PM EDT SESSION TYPE: Group exercise session: Exercise Subtype or Modality: Balance Training Patient completed a group exercise session which consisted of balance training. All exercises included improving balance and strength of lower extremities. He tolerated the exercises well and had no complaints. documented in this encounter Plan of Treatment Upcoming Encounters Date Type Department Care Team (Late st Contact Info) Description 11/14/2024 10:40 AM EST Office Visit Family Practice [address] [place] [address] [place] [address] Teofilo Krishnamurthy, DO [facility] [address] 01/06/2025 11:00 AM EDT Nurse Only Family Practice [address], [place] [address] [facility], [place] [address] Opal Preston, RN 293 [facility] [phone] 02/22/2025 10:40 AM EDT Office Visit Rheumatology [facility] [address] [employer] [place] [address] Best Wilkins MD [address] [employer] [place] [address] Health Maintenance Due Date Last Done Comments [...] this encounter Medical Devices Implanted Type Area Blast Furnace Keeper Helper Device Identifier Shelf Expiration Date Model / Serial / Lot Fidel Bio Composite X5 - [id number] Implanted:Qty: 3 on 07/02/2017 by Gael Stratton MD at OR [facility] Left: Shoulder [employer] 02/01/2019 AR-1927BCF / / [id number] [place] Pushlock 4.5x24mm - [id number] Implanted:Qty: 3 on 07/02/2017 by Gael Stratton MD at OR [facility] Left: Shoulder [employer] 02/01/2019 AR-1922BC / / [id number] Lens Intraoc 19.0 - [id number] - [id number] Implanted:Qty: 1 on 12/26/2021 by Saurav Cohen MD at OR [facility] Left: Eye BAUSCH & LOMB 10/04/2026 [id number] / [id number] / [id number] Lens Intraoc 19.0 - [id number] - [id number] Implanted:Qty: 1 on 01/09/2022 by Saurav Cohen MD at OR [facility] Right: Eye BAUSCH & LOMB 10/04/2026 [id number] / [id number] / [id number] documented as of this encounter Care Teams Supervisor Poultry Processing Relationship Specialty Start Date End Date Teofilo Krishnamurthy DO [address] [place] [address] PCP - General Internal Medicine 03/17/24 documented as of this encounter
--- OUTSIDE RECORDS SUMMARY | 2024-11-25 12:24 | External Medical Summary | Summary of Care ---
Author Name Unknown Organization [facility] Address [address] [place] [address] Phone [phone] Care Team Providers Care Rn Travel Name Role Phone Teofilo Krishnamurthy DO Primary Care Provider [phone] Reason for Visit * Reason Comments Outpatient Testing Encounter Details Date Type Department Care Team (Late st Contact Info) Description 07/05/2024 2:20 PM EDT Laboratory Laboratory, [facility] [address] [place] [address] Cosmo, Specimen Drop Off [facility] [address] [place] [address] Dark stools Allergies No known active allergiesdocumented as of [...] group B, by GOLD 2017 classification ([facility]) Administer into nostril 3 [...] mRNA, LNP-s, No Pre serve, 2-Dose Series (Over 40 Females) 08/14/2021,12/11/2020,11/13/2020 COVID-19, LNP-s, No Preserve , Neal-sucrose, [...] Upcoming Encounters Date Type Department Care Team (Latest Contact Info) Description 07/05/2024 3:40 PM EDT Office Visit [address] [address] Teofilo Krishnamurthy, DO [address] [place] [address] LLQ abdominal pain*; Dark stools; COPD, group B, by GOLD 2017 classification (HCC); Chronic respiratory failure with hypoxia (HCC); HTN, goal below 150/90; Obstructive sleep apnea of adult; BPH with obstruction/lower urinary tract symptoms; MCI (mild cognitive impairment); Gastroesophageal reflux disease without esophagitis; B12 deficiency; OAB (overactive bladder) 07/08/2024 12:30 PM EDT Office Visit [address] [place] [phone] College, Health Aeroplane Pilot Fam Prac [address] [place] [address] 07/12/2024 10:00 AM EDT Office Visit Family Practice 65 [facility] 293 [facility] [phone] Teofilo Krishnamurthy, DO [address] [place] [address] 07/21/2024 11:00 AM EDT Office Visit Family Practice [address] [place] [address] [address] [place] [phone] Teofilo Krishnamurthy, DO [address] [place] [address] 01/06/2025 11:00 AM EDT Nurse Only Family Practice [address] [place] [address] [address] [place] [phone] Opal Preston RN 293 [place] [phone] 02/22/2025 10:40 AM EDT Office Visit Rheumatology [address] [place] [address] Best Wilkins MD [facility] [employer] [place] [address] Pending Results Name Type Priority Associated Diagnoses Date /Time FECAL OCCULT BLOOD, EIA Lab Routine Dark stools 07/05/2024 2:13 PM EDT Health Maintenance Due Date Last Done Comments [...] this encounter Medical Devices Implanted Type Area Skiagrapher Device Identifier Shelf Expiration Date Model / Serial / Lot Michellecrew Bio Composite X5 - [id number] Implanted:Qty: 3 on 07/02/2017 by Gael Stratton MD at OR [facility] Left: Shoulder [employer] 02/01/2019 AR-1927BCF / / [id number] [place] Pushlock 4.5x24mm - [id number] Implanted:Qty: 3 on 07/02/2017 by Gael Stratton MD at OR [facility] Left: Shoulder [employer] 02/01/2019 AR-1922BC / / [id number] Lens Intraoc 19.0 - [id number] - [id number] Implanted:Qty: 1 on 12/26/2021 by Saurav Cohen MD at OR [facility] Left: Eye [employer]USCH [employer] LOMB 10/04/2026 [id number] / [id number] / [id number] Lens Intraoc 19.0 - [id number] - [id number] Implanted:Qty: 1 on 01/09/2022 by Saurav Cohen MD at OR [facility] Right: Eye BAUSCH & LOMB 10/04/2026 [id number] / [id number] / [id number] documented as of this encounter Visit Diagnoses [...] deficiencies OAB (overactive bladder) Hypertonicity of bladder Dark stools Nonspecific abnormal finding in stool contents documented in this encounter Care Teams Rn Travel Relationship Specialty Start Date End Date Teofilo Krishnamurthy DO [address] [place] [address] PCP - General Internal Medicine 03/17/24 documented as of this encounter
--- OUTSIDE RECORDS SUMMARY | 2024-11-25 12:24 | External Medical Summary | Summary of Care ---
Author Name Unknown Organization [facility] Address [address] [place] [address] Phone [phone] Care Team Providers Care Clerk Entry Level Name Role Phone Teofilo Krishnamurthy DO Primary Care Provider [phone] Reason for Visit * Reason Onset Date Comments Test Results 07/05/202407/05 Encounter Details Date Type Department Care Team (Late st Contact Info) Description 07/05/2024 Telephone Family Practice 65 [facility] [place] [address] [place] [phone] Teofilo Krishnamurthy DO [address] [place] [address] Test Results (07/05) Allergies No known active allergiesdocumented as of [...] GASIndications:COPD, group B, by GOLD 2017 classification ([facility]) Administer into nostril 3 L/min(Oxygen) [...] FOR PAIN, SEVERE. 60 Tablet 06/30/2024 Active Hospital, Clinic, or Other Facility Administered Medication Ordered Dose Route Frequency Start Date End Date Status sodium chloride 0.9 % flush/inj 10 mL 10 mL IV PUSH ONCE 07/05/2024 07/06/2024 Active documented as of this encounter (statuses [...] hemoglobin 01/31/2019 05/14/20 20 Post herpetic neuralgia 10/19/2017 0401/2018 Senile osteoporosis 01/19/2017 02/01/20 19 Neoplasm of [...] mRNA, LNP-s, No Pre serve, 2-Dose Series ([facility]) 08/14/2021,12/11/2020,11/13/2020 COVID-19, LNP-s, No Preserve , Neal-sucrose, [...] No 11/09/2023 Does the household have a [facility] source of income? (Household - for ages [...] encounter Miscellaneous Notes * Telephone Encounter - Bessy Herndon LPN - 07/05/2024 5:30 PM EDT Call placed to patient and relayed information from Dr. Krishnamurthy. Pt acknowledged understanding. No questions at this time. * Telephone Encounter - Bessy Herndon LPN - 07/05/2024 5:29 PM EDT ----- Message from Teofilo Krishnamurthy DO sent at 07/05/2024 4:18 PM EDT ----- No Pneumonia is present on CXR documented in this encounter Plan of Treatment Upcoming Encounters Date Type Department Care Team (Late st Contact Info) Description 07/08/2024 12:30 PM EDT Office Visit Family Practice 65 [facility] 293 [facility] [phone] College, Health Shipfitters Supervisor Fam Prac [address] [place] [address] 07/12/2024 10:00 AM EDT Office Visit Family Practice [address] [place] [phone] Teofilo Krishnamurthy, DO 293 [place] [address] 07/21/2024 11:00 AM EDT Office Visit Family Practice [address] [place] [phone] Teofilo Krishnamurthy, DO [address] [place] [address] 01/06/2025 11:00 AM EDT Nurse Only Family Practice [address] [place] [address], [place] [phone] Opal Preston, PAPA [address] [place] [phone] 02/22/2025 10:40 AM EDT Office Visit Rheumatology [facility] [address] [facility] [place] [address] Best Wilkins MD [address] [employer] [facility] [place] [address] Health Maintenance Due Date Last Done Comments Alpha-1 Antitrypsin 1958 COVID-19 Vaccine ( season) 2024 10/07/2022, 04/22/2022, 08/14/2021, Additional history exists Influenza Vaccine (FLU shot) (#1) 2024 07/07/2023, 06/25/2022, 07/12/2021, Additional history exists Adult Wellness Visit 01/03/2025 01/04/2024, 12/30/2022, 07/18/2021 Depression Screening 01/03/2025 01/04/2024 Albumin/Creatinine Ratio 06/25/2025 06/25/2022 O2 ASSESSMENT COMPLETED IN PAST YEAR FOR COPD 07/05/2025 07/05/2024 DXA Scan 02/21/2026 02/22/2024, 04/2018, 07/21/2016, Additional [...] this encounter Medical Devices Implanted Type Area Critical Care Cns Device Identifier Shelf Expiration Date Model / Serial / Lot MichelleLOVEFiLMcristo Bio Composite X5 - [id number] Implanted:Qty: 3 on 07/02/2017 by Gael Stratton MD at OR [facility] Left: Shoulder [employer] 02/01/2019 AR-1927BCF / / [id number] [place] Pushlock 4.5x24mm - [id number] Implanted:Qty: 3 on 07/02/2017 by Gael Stratton MD at OR [facility] Left: Shoulder [employer] 02/01/2019 AR-1922BC / / [id number] Lens Intraoc 19.0 - [id number] - [id number] Implanted:Qty: 1 on 12/26/2021 by Saurav Cohen MD at OR [facility] Left: Eye [employer]USCH [employer] LOMB 10/04/2026 [id number] / [id number] / [id number] Lens Intraoc 19.0 - [id number] - [id number] Implanted:Qty: 1 on 01/09/2022 by Saurav Cohen MD at OR [facility] Right: Eye BAUSCH [employer] LOMB 10/04/2026 [id number] / [id number] / [id number] documented as of this encounter Care Teams Clerk Entry Level Relationship Specialty Start Date End Date Teofilo Krishnamurthy DO [address] [place] [address] PCP - General Internal Medicine 03/17/24 documented as of this encounter
--- OUTSIDE RECORDS SUMMARY | 2024-11-25 12:24 | External Medical Summary | Summary of Care ---
Author Name Unknown Organization [facility] Address [address] [place] [address] Phone [phone] Care Team Providers Care Bistro Attendant Name Role Phone Teofilo Krishnamurthy DO Primary Care Provider Reason for Visit * Reason Onset Date Comments Test Results 07/05/202407/05 Encounter Details Date Type Department Care Team (Late st Contact Info) Description 07/05/2024 Telephone Family Practice 65 [facility] [place] [address] [place] [phone] Teofilo Krishnamurthy DO 293 [place] [address] Test Results (07/05) Allergies No known active [...] GASIndications:COPD, group B, by GOLD 2017 classification ([facility]) Administer into nostril 3 L/min(Oxygen) continuous [...] mRNA, LNP-s, No Pre serve, 2-Dose Series ([employer]) 08/14/2021,12/11/2020,11/13/2020 COVID-19, LNP-s, No Preserve , Neal-sucrose, [...] No 11/09/2023 Does the household have a [facility] source of income? (Household - for [...] Encounter - Bessy Herndon LPN - 07/05/2024 5:28 PM EDT Call placed to patient and relayed information from Dr. Krishnamurthy. Pt acknowledged understanding. Confirmed next OV with Dr. Krishnamurthy. * Telephone Encounter - Bessy Herndon LPN - 07/05/2024 5:25 PM EDT ----- Message from Teofilo Krishnamurthy DO sent at 07/05/2024 5:02 PM EDT ----- CT abdomen and Pelvis is normal. No Diverticulitis. Continue current medications. Probable viral gastroenteritis. Will await stool testing for occult blood. documented in this encounter Plan of Treatment Upcoming Encounters Date Type Department Care Team (Late st Contact Info) Description 07/08/2024 12:30 PM EDT Office Visit Family Practice 65 [facility] 293 [facility] [place] [phone] [facility], [facility] Land Sales Agent [address] [address] 07/12/2024 10:00 AM EDT Office Visit Family Practice [address] [place] [phone] Teofilo Krishnamurthy, [address] [place] [address], [place] [address] 07/21/2024 11:00 AM EDT Office Visit Family Practice [address] [place] [address] 293 [facility] [place] [phone] Teofilo Krishnamurthy, [address] [place] [address], [place] [address] 01/06/2025 11:00 AM EDT Nurse Only Family Practice [address] [place] [address], [place] [phone] Opal Preston RN [address] [place] [address], [place] [address] 02/22/2025 10:40 AM EDT Office Visit Rheumatology [place] [id number] [place] [address] Best Wilkins MD [address] [place] [address] Health Maintenance Due Date Last Done Comments [...] this encounter Medical Devices Implanted Type Area Vp Purchasing Device Identifier Shelf Expiration Date Model / Serial / Lot Corkscrew Bio Composite X5 - [id number] Implanted:Qty: 3 on 07/02/2017 by Gael Stratton MD at OR [facility] Left: Shoulder [employer] 02/01/2019 AR-1927BCF / / [id number] Arma Pushlock 4.5x24mm - [id number] Implanted:Qty: 3 on 07/02/2017 by Gael Stratton MD at OR [facility] Left: Shoulder [employer] 02/01/2019 AR-1922BC / / [id number] Lens Intraoc 19.0 - [id number] - [id number] Implanted:Qty: 1 on 12/26/2021 by Saurav Cohen MD at OR [facility] Left: Eye [employer] 10/04/2026 [id number] / [id number] / [id number] Lens Intraoc 19.0 - [id number] - [id number] Implanted:Qty: 1 on 01/09/2022 by Saurav Cohen MD at OR [facility] Right: Eye [employer]OMB 10/04/2026 [id number] / [id number] / [id number] documented as of this encounter Care Teams Bistro Attendant Relationship Specialty Start Date End Date Teofilo Krishnamurthy DO 293 [place] [address] PCP - General Internal Medicine 03/17/24 documented as of this encounter
--- OUTSIDE RECORDS SUMMARY | 2024-11-25 12:24 | External Medical Summary | Summary of Care ---
Author Name Unknown Organization [facility] Address [address] [place] [address] Phone [phone] Care Team Providers Care Real Estate Investor Name Role Phone Teofilo Krishnamurthy DO Primary Care Provider [phone] Reason for Visit * Reason Onset Date Comments Test Results 07/06/202407/06 Encounter Details Date Type Department Care Team (Late st Contact Info) Description 07/06/2024 Telephone Family Practice 65 [facility] [place] [address] [place] [phone] Teofilo Krishnamurthy DO [address] [place] [address] Test Results (07/06) Allergies No known active allergiesdocumented as of [...] GASIndications:COPD, group B, by GOLD 2017 classification ([facility]) Administer into nostril 3 L/min(Oxygen) continuous [...] Telephone Encounter - Teofilo Krishnamurthy DO - 07/06/2024 12:06 PM EDT Noted. * Telephone Encounter - Bessy Herndon LPN - 07/06/2024 10:59 AM EDT Call placed to patient and relayed information from Dr. Krishnamurthy. Pt acknowledged understanding. Pt states he is no longer having any cramping. Advised to contact office if cramping returns. * Telephone Encounter - Bessy Herndon LPN - 07/06/2024 10:57 AM EDT ----- Message from Teofilo Krishnamurthy DO sent at 07/06/2024 9:22 AM EDT ----- No blood in stool. Dark stool may be from Pepto Bismol. If cramping continues refer to GI. documented in this encounter Plan of Treatment Upcoming Encounters Date Type Department Care Team (Late st Contact Info) Description 07/12/2024 10:00 AM EDT Office Visit Family Practice [address] [place] [address] 293 [place] [phone] Teofilo Krishnamurthy, [address] [place] [address] 07/21/2024 11:00 AM EDT Office Visit Family Practice [address] [place] [address] 293 [place] [address] Teofilo Krishnamurthy DO 293 [place] [address] 01/06/2025 11:00 AM EDT Nurse Only Family Practice [address] [place] [address] 293 [place] [phone] Opal Preston, PAPA [address] [place] [phone] 02/22/2025 10:40 AM EDT Office Visit Rheumatology [place] [address] [place] [address] Best Wilkins MD [address] [place] [address] Health Maintenance Due Date Last Done Comments [...] this encounter Medical Devices Implanted Type Area Senior Animator Device Identifier Shelf Expiration Date Model / Serial / Lot Michellecrew Bio Composite X5 - [id number] Implanted:Qty: 3 on 07/02/2017 by Gael Stratton MD at OR [facility] Left: Shoulder [employer] 02/01/2019 AR-1927BCF / / [id number] [place] Pushlock 4.5x24mm - [id number] Implanted:Qty: 3 on 07/02/2017 by Gael Stratton MD at OR [facility] Left: Shoulder [employer] 02/01/2019 AR-1922BC / / [id number] Lens Intraoc 19.0 - [id number] - [id number] Implanted:Qty: 1 on 12/26/2021 by Saurav Cohen MD at OR [facility] Left: Eye [employer]OM[employer] 10/04/2026 [id number] / [id number] / [id number] Lens Intraoc 19.0 - [id number] - [id number] Implanted:Qty: 1 on 01/09/2022 by Saurav Cohen MD at OR [facility] Right: Eye [employer]OM[employer] 10/04/2026 [id number] / [id number] / [id number] documented as of this encounter Care Teams Real Estate Investor Relationship Specialty Start Date End Date Teofilo Krishnamurthy DO 293 [facility] [place] [address] PCP - General Internal Medicine 03/17/24 documented as of this encounter
--- OUTSIDE RECORDS SUMMARY | 2024-11-25 12:25 | External Medical Summary ---
Author Name Unknown Address Unknown Organization K01:[facility] [address] [place] [address] Laboratory Report Ordering Provider Test Date Status GUILHERME ANNE 07/05/2024 14:13:17 Final Observation Date Value Abnormality Reference (Units ) Status Occult Blood (EIA) 07/05/2024 14:13:17 Negative N egative Final Performing Location [facility] - [address] [place] [address]
--- OUTSIDE RECORDS SUMMARY | 2024-11-25 12:25 | External Medical Summary | Summary of Care ---
Author Name Unknown Organization [facility] Address [address] [place] [address] Phone [phone] Care Team Providers Care Mailer Name Role Phone Teofilo Krishnamurthy DO Primary Care Provider [phone] Encounter Details Date Type Department Care Team (Late st Contact Info) Description 07/01/2024 Documentation HEALTH & WELLNESS Pearl Pena, Health Personal Property Assessor Allergies No known active allergiesdocumented as of this encounter (statuses as of 07/01/2024) Medications Medication Sig Dispensed Refills Start Date [...] by GOLD 2017 classification ([facility]) Administer into nostril 3 L/min(Oxygen) continuous [...] as of this encounter (statuses as of 07/01/2024) Active Problems Problem Noted Date Diagnosed Date [...] as of this encounter (statuses as of 07/01/2024) Resolved Problems Problem Noted Date Diagnosed Date [...] as of this encounter (statuses as of 07/01/2024) Immunizations Name Administration Dates Next Due COVID-19 [...] Adjuvanted, 65+ Yrs, IM (FLUAD) 06/14/2020 Seasonal Influenza, Quadriva lent Hd (Fluzone Hd) 07/07/2023,06/25/2022,07/12/2021 Seasonal Influenza, Quadriva lent, No Preserve, IM 07/21/2018,07/01/2017,07/03/2016 Seasonal Influenza, Trivalen t, (IIV3), with Preserv, (Fluzone) 06/13/2015,06/29/2014,06/25/2013,2011,07/14/2011,07/14/2010,06/08/2009,1 ,08/19/2006 Seasonal Influenza, Trivalen t, Adjuvanted, 65+ YRS, [...] encounter Progress Notes * Pearl Pena Health Personal Property Assessor - 07/01/2024 12:06 PM EDT SESSION TYPE: One-on-one exercise session: Exercise Subtype or Modality: Balance Training Weight: Blood pressure: Planned Exercise Routine: Balance/Stability: tandem stance, tandem stance on foam, single leg stance,tandem walk, tandem walkbackwards, Cardio Trainin minutes of cardio on compact strider, Flexibility/ROM: lumbar flexionwith stability ball , and Lower Body Strength: seated knee raises, seated knee extension, ball squeeze, heel raises, plantar flexion with resistance band, hamstring curls with resistance band Frequency: 2x week Duration: 30-45 minutes Patient completed a one-on-one exercise session and tolerated exercise well. documented in this encounter Plan of Treatment Upcoming Encounters Date Type Department Care Team (Late st Contact Info) Description 07/21/2024 11:00 AM EDT Office Visit Family Practice [address] [place] [address] [place] [address] Teofilo Krishnamurthy, DO [address] [place] [address] 01/06/2025 11:00 AM EDT Nurse Only Family Practice [address] [place] [address] [place] [address] Opal Preston, RN 293 [place] [address] 02/22/2025 10:40 AM EDT Office Visit Rheumatology [facility] [address] [place] [address] Best Wilkins MD [address] [place] [address] Health Maintenance Due Date Last Done Comments Alpha-1 Antitrypsin 1957 COVID-19 Vaccine ( season) 2024 10/07/2022, 04/22/2022, 08/14/2021, Additional history exists Influenza Vaccine (FLU shot) (#1) 2024 07/07/2023, 06/25/2022, 07/12/2021, Additional history exists Adult Wellness Visit 01/03/2025 01/04/2024, 12/30/2022, 07/18/2021 Depression Screening 01/03/2025 01/04/2024 O2 ASSESSMENT COMPLETED IN PAST YEAR FOR COPD 04/27/2025 04/27/2024 Albumin/Creatinine Ratio 06/25/2025 06/25/2022 DXA Scan 02/21/2026 02/22/2024, 11/0 04/2018, 07/21/2016, [...] this encounter Medical Devices Implanted Type Area Showcase Trimmer Device Identifier Shelf Expiration Date Model / Serial / Lot Fidel Bio Composite X5 - [id number] Implanted:Qty: 3 on 07/02/2017 by Gael Stratton MD at OR [facility] Left: Shoulder [employer] 02/01/2019 AR-1927BCF / / [id number] [place] Pushlock 4.5x24mm - [id number] Implanted:Qty: 3 on 07/02/2017 by Gael Stratton MD at OR [facility] Left: Shoulder [employer] 02/01/2019 AR-1922BC / / [id number] Lens Intraoc 19.0 - [id number] - [id number] Implanted:Qty: 1 on 12/26/2021 by Saurav Cohen MD at OR [facility] Left: Eye [employer] 10/04/2026 [id number] / [id number] / [id number] Lens Intraoc 19.0 - [id number] - [id number] Implanted:Qty: 1 on 01/09/2022 by Saurav Cohen MD at OR [facility] Right: Eye [employer]OM[employer] 10/04/2026 [id number] / [id number] / [id number] documented as of this encounter Care Teams Mailer Relationship Specialty Start Date End Date Teofilo Krishnamurthy DO [address] [place] [address] PCP - General Internal Medicine 03/17/24 documented as of this encounter
--- OUTSIDE RECORDS SUMMARY | 2024-11-25 12:25 | External Medical Summary | Summary of Care ---
Author Name Unknown Organization [facility] Address [address] [place] [address] Phone [phone] Care Team Providers Care Spot Remover Name Role Phone Teofilo Krishnamurthy DO Primary Care Provider [phone] Reason for Visit * Reason Comments Outpatient Testing Encounter Details Date Type Department Care Team (Late st Contact Info) Description 07/05/2024 10:20 AM EDT Laboratory Laboratory, [facility] [address] [place] [address] [facility] [address] [place] [address] Nausea Allergies No known active allergiesdocumented as of [...] group B, by GOLD 2017 classification ([facility]) Administer into nostril 3 L/min(Oxygen) continuous . [...] mRNA, LNP-s, No Pre serve, 2-Dose Series ([employer]) 08/14/2021,12/11/2020,11/13/2020 COVID-19, LNP-s, No Preserve , Neal-sucrose, [...] Team (Late st Contact Info) Description 07/05/2024 10:50 AM EDT Imaging XR Imaging [address] [place] [address] Shortness of breath 07/05/2024 3:40 PM EDT Office Visit Family Practice [address] [place] [phone] Teofilo Krishnamurthy, DO 293 [facility] [address] Arrived 07/08/2024 12:30 PM EDT Office Visit Family Practice 65 [facility] [address] [facility], Health Bakery Demonstrator Fam Prac [address] [address] 07/21/2024 11:00 AM EDT Office Visit Family Practice 65 [facility] 293 [place] [address] Teofilo Krishnamurthy DO 293 [place] [address] 01/06/2025 11:00 AM EDT Nurse Only Family Practice 65 [facility] 293 [place] [address] Opal Preston, PAPA 293 [place] [address] 02/22/2025 10:40 AM EDT Office Visit Rheumatology [place] [address] [place] [address] Best Wilkins MD [facility] [employer] [place] [address] Pending Results Name Type Priority Associated Diagnoses Date /Time COMPREHENSIVE METABOLIC PANEL Lab STAT Nausea 07/05/2024 10:19 AM EDT Health Maintenance Due Date Last Done [...] this encounter Medical Devices Implanted Type Area Agency Director Device Identifier Shelf Expiration Date Model / Serial / Lot Fidel Bio Composite X5 - [id number] Implanted:Qty: 3 on 07/02/2017 by Gael Stratton MD at OR [facility] Left: Shoulder [employer] 02/01/2019 AR-1927BCF / / [id number] [place] Pushlock 4.5x24mm - [id number] Implanted:Qty: 3 on 07/02/2017 by Gael Stratton MD at OR [facility] Left: Shoulder [employer] 02/01/2019 AR-1922BC / / [id number] Lens Intraoc 19.0 - [id number] - [id number] Implanted:Qty: 1 on 12/26/2021 by Saurav Cohen MD at OR [facility] Left: Eye [employer] 10/04/2026 [id number] / [id number] / [id number] Lens Intraoc 19.0 - [id number] - [id number] Implanted:Qty: 1 on 01/09/2022 by Saurav Cohen MD at OR [facility] Right: Eye [employer] 10/04/2026 [id number] / [id number] / [id number] documented as of this encounter Procedures Procedure Name Priority Date/Time Associated Diagnosis Comments DIFFERENTIAL, AUTOMATED STAT 07/05/2024 10:19 AM EDT Nausea CBC STAT 07/05/2024 10:19 AM EDT Nausea CBC STAT 07/05/2024 10:19 AM EDT Nausea documented in this encounter Results * (ABNORMAL) DIFFERENTIAL, AUTOMATED (07/05/2024 10:19 AM EDT) WBC 5.12 4.00 - 10.80 K/uL 07/05/2024 10:28 AM EDT [facility] Neutrophils % 62.1 40.0 - 75.0 % 07/05/2024 10:28 AM EDT [facility] [place] [facility] Lymphocytes % 24.8 18.0 - 42.0 % 07/05/2024 10:28 AM EDT [facility] [place] [facility] Monocytes % 11.3(H) 1.0 - 11.0 % 07/05/2024 10:28 AM EDT [facility] [place] [facility] Eosinophils % 1.4 0.0 - 6.0 % 07/05/2024 10:28 AM EDT [facility] [place] [facility] Basophils % 0.4 0.0 - 2.0 % 07/05/2024 10:28 AM EDT [facility] [place] [facility] Absolute Neutrophils 3.18 1.80 - 7.70 K/uL 07/05/2024 10:28 AM EDT [facility] [place] [facility] Absolute Lymphocytes 1.27 1.00 - 4.80 K/ul 07/05/2024 10:28 AM EDT [facility] [place] [facility] Absolute Monocytes 0.58 0.00 - 1.10 K/uL 07/05/2024 10:28 AM EDT [facility] [place] [facility] Absolute Eosinophils 0.07 0.00 - 0.70 K/uL 07/05/2024 10:28 AM EDT [facility] [place] [facility] Absolute Basophils 0.02 0.00 - 0.20 K/uL 07/05/2024 10:28 AM EDT [facility] [place] [facility] Blood Venous blood specimen / Unknown Venipuncture / Unknown 07/05/2024 10:19 AM EDT 07/05/2024 10:19 AM EDT Teofilo Krishnamurthy DO LAB BLOOD ORDERABLES [facility] [place] [facility] [address] [place] [address] * CBC (07/05/2024 10:19 AM EDT) WBC 5.12 4.00 - 10.80 K/uL 07/05/2024 10:28 AM EDT [facility] [place] [facility] RBC 5.03 4.50 - 5.25 M/uL 07/05/2024 10:28 AM EDT [facility] [place] [facility] HGB 16.4 14.0 - 16.8 g/dL 07/05/2024 10:28 AM EDT [facility] [place] [facility] HCT 48.3 40.0 - 48.4 % 07/05/2024 10:28 AM EDT [facility] [place] [facility] MCV 96.0 82.0 - 99.5 fL 07/05/2024 10:28 AM EDT [facility] [place] [facility] MCH 32.6 27.0 - 34.0 pg 07/05/2024 10:28 AM EDT [facility] [place] [facility] MCHC 34.0 32.0 - 36.0 g/dL 07/05/2024 10:28 AM EDT [facility] [place] [facility] RDW 13.1 11.5 - 15.5 % 07/05/2024 10:28 AM EDT [facility] [place] [facility] PLT 151 140 - 400 K/uL 07/05/2024 10:28 AM EDT [facility] [place] [facility] MPV 11.1 6.6 - 11.1 fL 07/05/2024 10:28 AM EDT [facility] [place] [facility] Blood Venous blood specimen / Unknown Venipuncture / Unknown 07/05/2024 10:19 AM EDT 07/05/2024 10:19 AM EDT Teofilo Krishnamurthy DO LAB BLOOD ORDERABLES [facility] [place] [facility] [place] [address] documented in this encounter Visit Diagnoses Diagnosis Nausea Nausea alone Shortness of breath documented in this encounter Care Teams Spot Remover Relationship Specialty Start Date End Date Teofilo Krishnamurthy DO [address] [place] [address] PCP - General Internal Medicine 03/17/24 documented as of this encounter
--- OUTSIDE RECORDS SUMMARY | 2024-11-25 12:25 | External Medical Summary ---
Author Name Unknown Address Unknown Organization K[facility] [address] [place] [address] Laboratory Report Ordering Provider Test Date Status GUILHERME ANNE 07/05/2024 10:19:15 Final Observation Date Value Abnormality Reference (Units ) Status SYNC LEUKOCYTES IN BLOOD BY AUTOMATED COUNT 07/05/2024 10:19:15 5.12 4.00-10.80 (K/uL) Final Segs 07/05/2024 10:19:15 62.1 40.0-75.0 (%) Final Lymphs % 07/05/2024 10:19:15 24.8 18.0-42.0 (%) Final Monos 07/05/2024 10:19:15 11.3 Above high normal 1.0-11.0 (%) Final Eosinophils 07/05/2024 10:19:15 1.4 0.0-6.0 (%) Final Basos 07/05/2024 10:19:15 0.4 0.0-2.0 (%) Final Absolute Segs 07/05/2024 10:19:15 3.18 1.80-7.70 (K/uL) Final Lymphs, absolute 07/05/2024 10:19:15 1.27 1.00-4.80 (K/ul) Final Monos, Abs 07/05/2024 10:19:15 0.58 0.00-1.10 (K/uL) Final Eos, Abs 07/05/2024 10:19:15 0.07 0.00-0.70 (K/uL) Final Basos, Abs 07/05/2024 10:19:15 0.02 0.00-0.20 (K/uL) Final Performing Location [facility] 0 - [address] [place] [address]
--- OUTSIDE RECORDS SUMMARY | 2024-11-25 12:25 | External Medical Summary | Summary of Care ---
Author Name Unknown Organization [facility] Address [address] [place] [address] Phone [phone] Care Team Providers Care Operations Support Manager Name Role Phone Dayana Krishnamurthy DO Primary Care Provider [phone] Reason for Visit * Reason Comments eRx-Medication Refill Encounter Details Date Type Department Care Team (Late st Contact Info) Description 06/24/2024 Refill Family Practice [address] [place] [address] [place] [phone] Dayana Krishnamurthy DO [address] [place], [place] [phone] Lumbar degenerative disc disease Allergies No known active allergiesdocumented as of this encounter (statuses as of 06/26/2024) Medications Medication Sig Dispensed Refills Start Date [...] group B, by GOLD 2017 classification ([facility]) Administer into nostril 3 L/min(Oxygen) [...] every morning 90 Tablet 3 4 Active Losartan Potassium 25 MG Oral Tablet (Cozaar)Indications :HTN, goal below 150/90 TAKE ONE TABLET BY MOUTH IN THE MORNING 100 Tablet 1 4 Active Trelegy Ellipta 100-62.5-25 MCG/ACT Aerosol Powder Breath Activated (Fluticasone-Umecli dinium-Vilanterol) inhale 1 puff by mouth twice a day 180 Each 4 Active Mirtazapine 7.5 MG Oral Tablet (Remeron)Indication s:PAUL (generalized anxiety disorder) TAKE 1 TABLET BY MOUTH AT BEDTIME 90 Tablet 1 4 Active Finasteride 5 MG Oral Tablet (Proscar) Take one tablet by mouth every day 90 Tablet 3 4 Active Tamsulosin HCl 0.4 MG Oral Capsule (Flomax) Take one capsule by mouth every day 90 Capsule 3 4 Active traMADol HCl 50 MG Oral Tablet (Ultram)Indications :Generalized osteoarthritis TAKE 1 TABLET BY MOUTH 2 TIMES A DAY NEEDED FOR PAIN, SEVERE. 60 Tablet 4 Active Gabapentin 100 MG Oral Capsule (Neurontin)Indicati ons:Lumbar degenerative disc disease TAKE 1 CAPSULE BY MOUTH IN THE MORNING AND 1 CAPSULE BY MOUTH AT NOON AND 1 CAPSULE BY MOUTH BEFORE BEDTIME 90 Capsule 5 4 Active Gabapentin 100 MG Oral Capsule (Neurontin)Indicati ons:Lumbar degenerative disc disease take 1 capsule by mouth IN THE MORNING and 1 capsule by mouth AT NOON and 1 capsule by mouth BEFORE BEDTIME 90 Capsule 5 4 06/26/20 24 Discontinued documented as of this encounter (statuses as of 06/26/2024) Active Problems Problem Noted Date Diagnosed Date [...] as of this encounter (statuses as of 06/26/2024) Resolved Problems Problem Noted Date Diagnosed Date [...] as of this encounter (statuses as of 06/26/2024) Immunizations Name Administration Dates Next Due COVID-19 mRNA, LNP-s, No Pre serve, 2-Dose Series (Traxo) 08/14/2021,12/11/2020,11/13/2020 COVID-19, LNP-s, No Preserve , Neal-sucrose, [...] No 11/09/2023 Does the household have a [employer] source of income? (Household - for ages [...] Miscellaneous Notes * Telephone Encounter - Dayana Krishnamurthy, - 06/26/2024 9:57 AM EDTSigned Prescriptions: Disp Refills Gabapentin 100 MG Oral Capsule (Neurontin) 90 Cap*5 Sig: TAKE 1 CAPSULE BY MOUTH IN THE MORNING AND 1 CAPSULE BY MOUTH AT NOON AND 1 CAPSULE BY MOUTH BEFORE BEDTIMEAuthorizing Provider: DAYANA KRISHNAMURTHY * Telephone Encounter - Opal Trivedi LPN - 06/25/2024 8:37 AM EDTPending Prescriptions: Disp Refills Gabapentin 100 MG Oral Capsule [Pharmacy M*90 Cap*5 Sig: take 1 capsule by mouth IN THE MORNING and 1 capsule by mouth AT NOON and 1 capsule by mouth BEFORE BEDTIME * Telephone Encounter - Opal Trivedi LPN - 06/25/2024 8:36 AM EDT Did you pend patient's preferred pharmacy and medication before forwarding?yes Pharmacy: [id number] [address] [facility] Pending Prescriptions: Disp Refills Gabapentin 100 MG Oral Capsule (Neurontin*90 Cap*5 Sig: TAKE 1 CAPSULE BY MOUTH IN THE MORNING AND 1 CAPSULE BY MOUTH AT NOON AND 1 CAPSULE BY MOUTH BEFORE BEDTIME Last Visit: 04/27/2024 (in office), Visit date not found (telemedicine) Next Visit: 07/01/2024 If no future appointments scheduled, and last [...] Lab Results Component Value Date/Time CREAT 1.0 11/09/2023 12:08 PM CREAT 1.0 12/22/2019 01:56 PM POTASSIUM 5.1 11/09/2023 12:08 PM POTASSIUM 4.5 12/22/2019 01:56 PM TSH 2.65 02/04/2022 04:29 PM TSH 2.20 12/22/2019 01:56 PM LDL 128 07/07/2023 10:34 AM LDL 103 05/03/2014 09:25 AM LDL NOT APPLICABLE 05/03/2014 09:25 AM ALT 27 11/09/2023 12:08 PM ALT 19 12/22/2019 01:56 PM HGBA1C 5.5 08/12/2022 09:58 AM * Telephone Encounter - Luisa Jimenez - 06/25/2024 4:13 AM EDTPending Prescriptions: Disp Refills Gabapentin 100 MG Oral Capsule [Pharmacy M*90 Cap*5 Sig: take 1capsule by mouth IN THE MORNING and 1 capsule by mouth AT NOON and 1 capsule by mouth BEFORE BEDTIME documented in this encounter Plan of Treatment Upcoming Encounters Date Type Department Care Team (Late st Contact Info) Description 07/01/2024 10:30 AM EDT Office Visit Family Practice [address] [place] [phone] College, Health Vascular Technician Fam Prac [address] [place] [address] 07/21/2024 11:00 AM EDT Office Visit Family Practice [address] [place] [phone] Dayana Krishnamurthy DO 293 [place] [address] 01/06/2025 11:00 AM EDT Nurse Only Ancillary [address] [place] [address] College, Nurse Annual Wellness Visit [address] [place] [address] 02/22/2025 10:40 AM EDT Office Visit Rheumatology [facility] [address] [facility] [place] [address] Best Wilkins MD [address] [facility] [place] [address] Health Maintenance Due Date Last Done Comments [...] this encounter Medical Devices Implanted Type Area Coffee Sommelier Device Identifier Shelf Expiration Date Model / Serial / Lot Corkscrew Bio Composite X5 - [id number] Implanted:Qty: 3 on 07/02/2017 by Gael Stratton MD at OR [facility] Left: Shoulder [employer] 02/01/2019 [id number]-[id number] / / [id number] [place] Pushlock 4.5x24mm - [id number] Implanted:Qty: 3 on 07/02/2017 by Gael Stratton MD at OR [facility] Left: Shoulder [employer] 02/01/2019 AR-[id number] / / [id number] Lens Intraoc 19.0 - [id number] - [id number] Implanted:Qty: 1 on 12/26/2021 by Saurav Cohen MD at OR [facility] Left: Eye [employer]CH [employer] LOMB 10/04/2026 [id number] / [id number] / [id number] Lens Intraoc 19.0 - [id number] - [id number] Implanted:Qty: 1 on 01/09/2022 by Saurav Cohen MD at OR [facility] Right: Eye BAUSCH [employer] LOMB 10/04/2026 [id number] / [id number] / [id number] documented as of this encounter Visit Diagnoses Diagnosis Lumbar degenerative disc disease Degeneration of lumbar or lumbosacral intervertebral disc documented in this encounter Care Teams Operations Support Manager Relationship Specialty Start Date End Date Dayana Krihsnamurthy DO [address] [place] [address] PCP - General Internal Medicine 03/17/24 documented as of this encounter
--- OUTSIDE RECORDS SUMMARY | 2024-11-25 12:25 | External Medical Summary | Summary of Care ---
Author Name Unknown Organization [facility] Address [address] [place] [address] Phone [phone] Care Team Providers Care Rubber Chemist Name Role Phone Teofilo Krishnamurthy DO Primary Care Provider [phone] Encounter Details Date Type Department Care Team (Late st Contact Info) Description 06/22/2024 Documentation HEALTH & WELLNESS Pearl Pena, Health Meat Cutter Allergies No known active allergiesdocumented as of this encounter (statuses as of 06/22/2024) Medications Medication Sig Dispensed Refills Start Date [...] GASIndications:COPD, group B, by GOLD 2017 classification ([facility]) Administer into nostril 3 L/min(Oxygen) continuous . 1 Each 07/04/2022 Active Vitamin D3 50 MCG (1999 [place]) [...] every morning 90 Tablet 3 11/29/2023 Active Gabapentin 100 MG Oral Capsule (Neurontin)Indicatio ns:Lumbar degenerative disc disease take 1 capsule by mouth IN THE MORNING and 1 capsule by mouth AT NOON and 1 capsule by mouth BEFORE BEDTIME 90 Capsule 5 12/03/2023 Active Losartan Potassium 25 MG Oral Tablet (Cozaar)Indications: HTN, goal below 150/90 TAKE ONE TABLET BY MOUTH IN THE MORNING 100 Tablet 1 01/19/2024 Active Trelegy Ellipta 100-62.5-25 MCG/ACT Aerosol Powder Breath Activated (Fluticasone-Umeclid inium-Vilanterol) inhale 1 puff by mouth twice a day 180 Each 03/14/2024 Active Mirtazapine 7.5 MG Oral Tablet (Remeron)Indications :PAUL (generalized anxiety disorder) TAKE 1 TABLET BY MOUTH AT BEDTIME 90 Tablet 1 03/28/2024 Active Finasteride 5 MG Oral Tablet (Proscar) Take one tablet by mouth every day 90 Tablet 3 05/17/2024 Active Tamsulosin HCl 0.4 MG Oral Capsule (Flomax) Take one capsule by mouth every day 90 Capsule 3 05/17/2024 Active traMADol HCl 50 MG Oral Tablet (Ultram)Indications: Generalized osteoarthritis TAKE 1 TABLET BY MOUTH 2 TIMES A DAY NEEDED FOR PAIN, SEVERE. 60 Tablet 05/30/2024 Active documented as of this encounter (statuses as of 06/22/2024) Active Problems Problem Noted Date Diagnosed Date [...] as of this encounter (statuses as of 06/22/2024) Resolved Problems Problem Noted Date Diagnosed Date [...] as of this encounter (statuses as of 06/22/2024) Immunizations Name Administration Dates Next Due COVID-19 [...] No 11/09/2023 Does the household have a [facility] source of income? (Household - [...] encounter Progress Notes * Pearl Pena Health Meat Cutter - 06/22/2024 3:30 PM EDT SESSION TYPE: Group exercise session: Exercise Subtype or Modality: Balance Training Patient completed a group exercise session which consisted of balance training. All exercises included improving balance and strength of lower extremities. He tolerated the exercises well and had no complaints. documented in this encounter Plan of Treatment Upcoming Encounters Date Type Department Care Team (Late st Contact Info) Description 06/24/2024 10:00 AM EDT Office Visit Family Practice 65 [facility] 293 [place] [phone] [place], Health Meat Cutter [facility] Prac [address], [place] [address] 07/21/2024 11:00 AM EDT Office Visit Family Practice [address] [place] [address] Teofilo Krishnamurthy, DO 293 [facility], [place] [address] 01/06/2025 11:00 AM EDT Nurse Only Ancillary [address] [place] 293 [place] [address] College, Nurse Annual Wellness Visit [address] [place] [address] 02/22/2025 10:40 AM EDT Office Visit Rheumatology [facility] [address] [place] [address] Best Wilkins MD [address] [employer] [place] [address] Health Maintenance Due Date Last Done Comments [...] this encounter Medical Devices Implanted Type Area International Account Executive Device Identifier Shelf Expiration Date Model / Serial / Lot Fidel Bio Composite X5 - [id number] Implanted:Qty: 3 on 07/02/2017 by Gael Stratton MD at OR [facility] Left: Shoulder [employer] 02/01/2019 AR-1927BCF / / [id number] [place] Pushlock 4.5x24mm - [id number] Implanted:Qty: 3 on 07/02/2017 by Gael Stratton MD at OR [facility] Left: Shoulder [employer] 02/01/2019 AR-1922BC / / [id number] Lens Intraoc 19.0 - [id number] - [id number] Implanted:Qty: 1 on 12/26/2021 by Saurav Cohen MD at OR [facility] Left: Eye BAUSCH [employer] LOMB 10/04/2026 [id number] / [id number] / [id number] Lens Intraoc 19.0 - [id number] - [id number] Implanted:Qty: 1 on 01/09/2022 by Saurav Cohen MD at OR [facility] Right: Eye BAUSCH [employer] LOMB 10/04/2026 [id number] / [id number] / [id number] documented as of this encounter Care Teams Rubber Chemist Relationship Specialty Start Date End Date Teofilo Krishnamurthy DO [address] [place] [address] PCP - General Internal Medicine 03/17/24 documented as of this encounter
--- OUTSIDE RECORDS SUMMARY | 2024-11-25 12:25 | External Medical Summary | Summary of Care ---
Author Name Unknown Organization [facility] Address [address] [place] [address] Phone [phone] Care Team Providers Care Drip Pumper Name Role Phone Dayana Krishnamurthy DO Primary Care Provider [phone] Reason for Visit * Reason Comments eRx-Medication Refill Encounter Details Date Type Department Care Team (Late st Contact Info) Description 06/29/2024 Refill Family Practice [address] [place] [address] [place] [address] Dayana Krishnamurthy DO [address] [place], [place] [phone] GENERAL OSTEOARTHROSIS Allergies No known active allergiesdocumented as of this encounter (statuses as of 06/30/2024) Medications Medication Sig Dispensed Refills Start Date [...] 2017 classification ([facility]) Administer into nostril 3 L/min(Oxygen) continuous . [...] THE MORNING 100 Tablet 1 4 Active Mirtazapine 7.5 MG Oral Tablet [...] by mouth daily. 180 Each 4 Active traMADol HCl 50 MG Oral Tablet (Ultram)Indications :Generalized osteoarthritis TAKE 1 TABLET BY MOUTH 2 TIMES A DAY NEEDED FOR PAIN, SEVERE. 60 Tablet 4 Active traMADol HCl 50 MG Oral Tablet (Ultram)Indications :Generalized osteoarthritis TAKE 1 TABLET BY MOUTH 2 TIMES A DAY NEEDED FOR PAIN, SEVERE. 60 Tablet 4 06/30/20 24 Discontinued documented as of this encounter (statuses as of 06/30/2024) Active Problems Problem Noted Date Diagnosed Date [...] as of this encounter (statuses as of 06/30/2024) Resolved Problems Problem Noted Date Diagnosed Date [...] as of this encounter (statuses as of 06/30/2024) Immunizations Name Administration Dates Next Due COVID-19 mRNA, LNP-s, No Pre serve, 2-Dose Series (Koru) 08/14/2021,12/11/2020,11/13/2020 COVID-19, LNP-s, No Preserve , Neal-sucrose, [...] No 11/09/2023 Does the household have a [facility] source of income? (Household - for [...] on file Are you (or your family) nehsa eless or worried that you might be [...] Telephone Encounter - Dayana Krishnamurthy DO - 06/30/2024 4:02 PM EDTSigned Prescriptions: Disp Refills traMADol HCl 50 MG Oral Tablet (Ultram) 60 Tab*0 Sig: TAKE 1 TABLET BY MOUTH 2 TIMES A DAY NEEDED FOR PAIN, SEVERE.Authorizing Provider: DAYANA KRISHNAMURTHY * Telephone Encounter - Dayana Krishnamurthy, - 06/30/2024 4:02 PM EDT I have reviewed the patients controlled substance dispensing history in the Prescription Drug Monitoring Program in compliance with the [facility] regulations before prescribing a controlled substance. Last Tox Screen Results: No results found. However, due to the size of the patient record, not all encounters were searched.Please check Results Review for a complete set of results. Medication due 06/27/2024 * Telephone Encounter - Schuyler Husain [facility] - 06/30/2024 3:48 PM EDT Pending Prescriptions: Disp Refills traMADol HCl 50 MG Oral Tablet [Pharmacy M*60 Tab*0 Sig: TAKE 1 TABLET BY MOUTH 2 TIMES A DAY NEEDED FOR PAIN, SEVERE. Electronically signed by Schuyler Husain [facility] at 06/30/2024 3:48 PM EDT * Telephone Encounter - Schuyler Husain [facility] - 06/30/2024 3:48 PM EDT I have reviewed the patients controlled substance dispensing history in the Prescription Drug Monitoring Program in compliance with the [facility] regulations before prescribing a controlled substance. PDMP checked on 06/30/2024. Pending Prescriptions: Disp Refills traMADol HCl 50 MG Oral Tablet (Ultram) [*60 Tab*0 Sig: TAKE 1 TABLET BY MOUTH 2 TIMES A DAY NEEDED FOR PAIN, SEVERE. Last Visit: 04/27/2024 (in office), Visit date not found (telemedicine) Next Visit: 07/01/2024 Date medication was last filled: 05/30/24 Date medication is due for refill: 06/27/24 Pharmacy: [id number] [address] [facility] Is this request for a controlled substance? Yes and Urine Drug Screen Not completed Toxicology results: No results found. However, due to the size of the patient record, not all encounters were searched.Please check Results Review for a complete set of results. Please approve if appropriate. Thanks, Schuyler Husain, PharmD Clinical Pharmacist [facility] ([facility]) [phone] 06/30/2024, 3:48 PM Electronically signed by Schuyler Husain [facility] at 06/30/2024 3:48 PM EDT documented in this encounter Plan of Treatment Upcoming Encounters Date Type Department Care Team (Late st Contact Info) Description 07/01/2024 10:30 AM EDT Office Visit Family Practice [address] [place] [address] [place] [phone] [place], Health Motor Checker Fam Prac [address] [place] [address] 07/21/2024 11:00 AM EDT Office Visit Family Practice [address] [place] [address] [place] [phone] Dayana Krishnamurthy, DO [address] [place] [address] 01/06/2025 11:00 AM EDT Nurse Only Ancillary [address] [place] [address] [place], Nurse Annual Wellness Visit [address] [place] [address] 02/22/2025 10:40 AM EDT Office Visit Rheumatology [place] [address] [place] [address] Best Wilkins MD [address] [place] [address] Health Maintenance Due Date Last Done Comments Alpha-1 Antitrypsin 1958 COVID-19 Vaccine ( season) 2024 10/07/2022, 04/22/2022, 08/14/2021, Additional history exists Influenza Vaccine (FLU shot) (#1) 2024 07/07/2023, 06/25/2022, 07/12/2021, Additional history exists Adult Wellness Visit 01/03/2025 01/04/2024, 12/30/2022, 07/18/2021 Depression Screening 01/03/2025 01/04/2024 O2 ASSESSMENT COMPLETED IN PAST YEAR FOR COPD 04/27/2025 04/27/2024 Albumin/Creatinine Ratio 06/25/2025 06/25/2022 DXA Scan 02/21/2026 02/22/2024, 04/2018, 07/21/2016, Additional [...] this encounter Medical Devices Implanted Type Area Network Operations Lead Device Identifier Shelf Expiration Date Model / Serial / Lot [employer] Bio Composite X5 - [id number] Implanted:Qty: 3 on 07/02/2017 by Gael Stratton MD at OR [facility] Left: Shoulder [employer] 02/01/2019 AR-1927BCF / / [id number] [place] Pushlock 4.5x24mm - [id number] Implanted:Qty: 3 on 07/02/2017 by Gael Stratton MD at OR [facility] Left: Shoulder [employer] 02/01/2019 AR-1922BC / / [id number] Lens Intraoc 19.0 - [id number] - [id number] Implanted:Qty: 1 on 12/26/2021 by Saurav Cohen MD at OR [facility] Left: Eye BAUSCH [employer] LOMB 10/04/2026 [id number] / [id number] / [id number] Lens Intraoc 19.0 - [id number] - [id number] Implanted:Qty: 1 on 01/09/2022 by Saurav Cohen MD at OR [facility] Right: Eye BAUSCH [employer] LOMB 10/04/2026 [id number] / [id number] / [id number] documented as of this encounter Visit Diagnoses Diagnosis GENERAL OSTEOARTHROSIS Generalized osteoarthrosis, unspecified site documented in this encounter Care Teams Drip Pumper Relationship Specialty Start Date End Date Dayana Krishnamurthy DO 293 [place] [address] PCP - General Internal Medicine 03/17/24 documented as of this encounter
--- OUTSIDE RECORDS SUMMARY | 2024-11-25 12:25 | External Medical Summary ---
Author Name Unknown Address Unknown Organization K[facility] [address] [place] [id number] Laboratory Report Ordering Provider Test Date Status GUILHERME ANNE 07/05/2024 10:19:15 Final Observation Date Value Abnormality Reference (Units ) Status WBC, Total 07/05/2024 10:19:15 5.12 4.00-10.8 0 (K/uL) Final RBC 07/05/2024 10:19:15 5.03 4.50-5.25 (M/uL) Final Hemoglobin 07/05/2024 10:19:15 16.4 14.0-16.8 (g/dL) Final HCT 07/05/2024 10:19:15 48.3 40.0-48.4 (%) Final MCV 07/05/2024 10:19:15 96.0 82.0-99.5 (fL) Final MCH 07/05/2024 10:19:15 32.6 27.0-34.0 (pg) Final MCHC 07/05/2024 10:19:15 34.0 32.0-36.0 (g/dL) Final RDW 07/05/2024 10:19:15 13.1 11.5-15.5 (%) Final Platelets 07/05/2024 10:19:15 151 140-400 (K /uL) Final MPV 07/05/2024 10:19:15 11.1 6.6-11.1 ( fL) Final Performing Location [facility] [place] [id number]
--- OUTSIDE RECORDS SUMMARY | 2024-11-25 12:25 | External Medical Summary | Summary of Care ---
Author Name Unknown Organization [facility] Address [address] [place] [address] Phone [phone] Care Team Providers Care End Stapler Name Role Phone Teofilo Krishnamurthy DO Primary Care Provider [phone] Encounter Details Date Type Department Care Team (Late st Contact Info) Description 06/24/2024 Documentation HEALTH & WELLNESS Pearl Pena, Health Construction Director Allergies No known active allergiesdocumented as of this encounter (statuses as of 06/24/2024) Medications Medication Sig Dispensed Refills Start Date [...] GASIndications:COPD, group B, by GOLD 2017 classification ([facility]) Administer into nostril 3 [...] as of this encounter (statuses as of 06/24/2024) Active Problems Problem Noted Date Diagnosed Date [...] as of this encounter (statuses as of 06/24/2024) Resolved Problems Problem Noted Date Diagnosed Date [...] as of this encounter (statuses as of 06/24/2024) Immunizations Name Administration Dates Next Due COVID-19 [...] encounter Progress Notes * Pearl Pena Health Construction Director - 06/24/2024 10:52 AM EDT SESSION TYPE: One-on-one exercise session: Exercise [...] EDT Office Visit Family Practice [address] [place] [address] [place] [address] Teofilo Krishnamurthy, DO 293 [place] [address] 01/06/2025 11:00 AM EDT Nurse Only Ancillary [address] [place] 293 [place] [address] College, Nurse Annual Wellness Visit [address], [place] [address] 02/22/2025 10:40 AM EDT Office Visit Rheumatology [facility] [address] [facility] [place] [address] Best Wilkins MD [address] [employer] [place] [address] Health Maintenance Due Date Last Done Comments [...] this encounter Medical Devices Implanted Type Area Rollway Worker Device Identifier Shelf Expiration Date Model / Serial / Lot Fidel Bio Composite X5 - [id number] Implanted:Qty: 3 on 07/02/2017 by Gael Stratton MD at OR [facility] Left: Shoulder [employer] 02/01/2019 AR-1927BCF / / [id number] [place] Pushlock 4.5x24mm - [id number] Implanted:Qty: 3 on 07/02/2017 by Gael Stratton MD at OR [facility] Left: Shoulder [employer] 02/01/2019 AR-1922BC / / [id number] Lens Intraoc 19.0 - [id number] - [id number] Implanted:Qty: 1 on 12/26/2021 by Saurav Cohen MD at OR [facility] Left: Eye [employer]USCH [employer] LOMB 10/04/2026 [id number] / [id number] / [id number] Lens Intraoc 19.0 - [id number] - [id number] Implanted:Qty: 1 on 01/09/2022 by Saurav Cohen MD at OR [facility] Right: Eye BAUSCH [employer] LOMB 10/04/2026 [id number] / [id number] / [id number] documented as of this encounter Care Teams End Stapler Relationship Specialty Start Date End Date Teofilo Krishnamurthy DO [address] [place] [address] PCP - General Internal Medicine 03/17/24 documented as of this encounter
--- OUTSIDE RECORDS SUMMARY | 2024-11-25 12:25 | External Medical Summary ---
Author Name Unknown Address Unknown Organization K0G:LABORATORY [facility] [address] [facility] [address] Laboratory Report Ordering Provider Test Date Status GUILHERME ANNE 07/05/2024 10:19:15 Final Observation Date Value Abnormality Reference (Units ) Status BUN 07/05/2024 10:19:15 14 6-20 (mg/dL) Final Creatinine 07/05/2024 10:19:15 1.0 0.6-1.2 (mg/dL) Final Glomerular filtration rate/1.73 sq M.predicted [Volume Rate/Area] in Serum, Plasma or Blood by Creatinine-based formula (CKD-EPI) 07/05/2024 10:19:15 71 >=60 (mL/min) Final eGFR is calculated based on the CKD-EPI 2020 equation. Sodium 07/05/2024 10:19:15 141 135-146 (m mol/L) Final Potassium 07/05/2024 10:19:15 4.1 3.5-5.1 (m mol/L) Final Cl 07/05/2024 10:19:15 106 98-107 (mm ol/L) Final CO2 07/05/2024 10:19:15 23 22-32 (mmo l/L) Final Anion gap 07/05/2024 10:19:15 12 7-15 (mmol /L) Final Glucose 07/05/2024 10:19:15 99 70-120 (mg /dL) Final Albumin 07/05/2024 10:19:15 3.8 3.8-5.0 (g /dL) Final AST (Aspartate aminotransferase) 07/05/2024 10:19:15 16 10-50 (U/L) Fin al Alk Phos 07/05/2024 10:19:15 76 35-130 (U/ L) Final Bilirubin, Total 07/05/2024 10:19:15 0.7 <=1 .2 (mg/dL) Final Calcium 07/05/2024 10:19:15 9.5 8.4-10.2 ( mg/dL) Final Protein 07/05/2024 10:19:15 6.8 6.0-8.3 (g /dL) Final ALT (Alanine aminotransferase) 07/05/2024 10:19:15 6 Below low normal 10-50 (U/L) Final Performing Location LABORATORY [place] 57-[address] [facility] [address]
--- OUTSIDE RECORDS SUMMARY | 2024-11-25 12:25 | External Medical Summary | Summary of Care ---
Author Name Unknown Organization [facility] Address [address] [place] [address] Phone [phone] Care Team Providers Care Timber Mill Worker Name Role Phone Teofilo Krishnamurthy DO Primary Care Provider [phone] Reason for Visit * Reason Onset Date Comments Advice 07/05/2024 Encounter Details Date Type Department Care Team (Late st Contact Info) Description 07/05/2024 Telephone Family Practice 65 [facility] [place] [address] [place] [address] Teofilo Krishnamurthy DO 293 [place] [address] Advice Allergies No known active allergiesdocumented as of [...] GASIndications:COPD, group B, by GOLD 2017 classification (HCC) [...] 01/31/2019 05/14/20 20 Post herpetic neuralgia 10/19/2017 042 01/2018 Senile osteoporosis 01/19/2017 02/01/20 19 Neoplasm [...] mRNA, LNP-s, No Pre serve, 2-Dose Series ([employer]) 08/14/2021,12/11/2020,11/13/2020 COVID-19, LNP-s, No Preserve , Neal-sucrose, [...] No 11/09/2023 Does the household have a [facility] source of income? (Household - [...] Telephone Encounter - Teofilo Krishnamurthy DO - 07/05/2024 10:13 AM EDT CBC, CMP and CXR ordered Notify the patient * Telephone Encounter - Opal Trivedi LPN - 07/05/2024 9:09 AM EDT Patient called in stating that he is constantly belching, nausea, feces are black and problems breathing Denies swelling in feet, denies chest pain. Did take pepto bismol yesterday. Oxygen is 92% on 3 LPM Pulse is 64 Stool black for 3 days. documented in this encounter Plan of Treatment Upcoming Encounters Date Type Department Care Team (Late st Contact Info) Description 07/05/2024 3:40 PM EDT Office Visit Family Practice 65 [facility] 293 [place] [phone] Teofilo Krishnamurthy, DO 293 [place] [address] 07/08/2024 12:30 PM EDT Office Visit Family Practice 65 [facility] 293 [place] [phone] College, Health Chief Hydroelectric Station Operator Fam Prac [address] [place] [address] 07/21/2024 11:00 AM EDT Office Visit Family Practice [address] [place] [phone] Teofilo Krishnamurthy, DO 293 [place] [address] 01/06/2025 11:00 AM EDT Nurse Only Family Practice [address] [place] [address] 293 [place] [phone] Opal Preston, PAPA [address] [place] [address], [place] [phone] 02/22/2025 10:40 AM EDT Office Visit Rheumatology [place] [address] [facility] [place] [address] Best Wilkins MD [facility] [place] [address] Pending Results Name Type Priority Associated Diagnoses Date /Time COMPREHENSIVE METABOLIC PANEL Lab STAT Nausea 07/05/2024 10:19 AM EDT Scheduled Orders Name Type Priority Associated Diagnoses Orde r Schedule COMPREHENSIVE METABOLIC PANEL Lab STAT Nausea Expected: 07/05/2024 (Approximate), Expires: 07/05/2025 XR CHEST 2 VIEWS Medical Imaging Routine Shortness of breath Expected: 07/05/2024, Expires: 08/05/2025 Health Maintenance Due Date Last Done Comments [...] encounter Medical Devices Implanted Type Area International Guest Coordinator Device Identifier Shelf Expiration Date Model / Serial / Lot Mojganw Bio Composite X5 - [id number] Implanted:Qty: 3 on 07/02/2017 by Gael Stratton MD at OR [facility] Left: Shoulder [employer] 02/01/2019 AR-1927BCF / / [id number] [place] Pushlock 4.5x24mm - [id number] Implanted:Qty: 3 on 07/02/2017 by Gael Stratton MD at OR [facility] Left: Shoulder [employer] 02/01/2019 [id number] / / [id number] Lens Intraoc 19.0 - [id number] - [id number] Implanted:Qty: 1 on 12/26/2021 by Saurav Cohen MD at OR [facility] Left: Eye [employer]USCH [employer] LOMB 10/04/2026 [id number] / [id number] / [id number] Lens Intraoc 19.0 - [id number] - [id number] Implanted:Qty: 1 on 01/09/2022 by Saurav Cohen MD at OR [facility] Right: Eye BAUSCH & LOMB 10/04/2026 [id number] / [id number] / [id number] documented as of this encounter Visit Diagnoses Diagnosis Nausea- Primary Nausea alone Shortness of breath documented in this encounter Care Teams Timber Mill Worker Relationship Specialty Start Date End Date Teofilo Krishnamurthy DO [address] [place] [address] PCP - General Internal Medicine 03/17/24 documented as of this encounter
--- OUTSIDE RECORDS SUMMARY | 2024-11-25 12:26 | External Medical Summary | Summary of Care ---
Author Name Unknown Organization [facility] Address [address] [place] [address] Phone [phone] Care Team Providers Care Receiving Weigher Name Role Phone Dayana Krishnamurthy DO Primary Care Provider [phone] Reason for Visit * Reason Comments eRx-Medication Refill Encounter Details Date Type Department Care Team (Late st Contact Info) Description 05/27/2024 Refill Family Practice [address] [facility] [place] [address] [place] [address] Dayana Krishnamurthy DO [address] [place], [place] [id number] GENERAL OSTEOARTHROSIS Allergies No known active allergiesdocumented as of this encounter (statuses as of 05/30/2024) Medications Medication Sig Dispensed Refills Start Date [...] group B, by GOLD 2017 classification ([facility]) Administer into nostril 3 L/min(Oxygen) continuous [...] every morning 90 Tablet 3 4 Active Gabapentin 100 MG Oral Capsule (Neurontin)Indicati ons:Lumbar degenerative disc disease take 1 capsule by mouth IN THE MORNING and 1 capsule by mouth AT NOON and 1 capsule by mouth BEFORE BEDTIME 90 Capsule 5 4 Active Losartan Potassium 25 MG Oral [...] NEEDED FOR PAIN, SEVERE. 60 Tablet 4 05/30/20 24 Discontinued documented as of this encounter (statuses as of 05/30/2024) Active Problems Problem Noted Date Diagnosed Date [...] as of this encounter (statuses as of 05/30/2024) Resolved Problems Problem Noted Date Diagnosed Date [...] as of this encounter (statuses as of 05/30/2024) Immunizations Name Administration Dates Next Due COVID-19 mRNA, LNP-s, No Pre serve, 2-Dose Series ([email or web address]) 08/14/2021,12/11/2020,11/13/2020 COVID-19, LNP-s, No Preserve , Neal-sucrose, [...] lent, No Preserve, IM 07/21/2018,07/01/2017,07/03/2016 Seasonal Influenza, Split, I IV3, With Preserve, Inj 06/13/2015,06/29/2014,06/25/2013,2011,07/14/2011,07/14/2010,06/08/2009,1 ,08/19/2006 Seasonal Influenza, Trivalen t, Adjuvanted, 65+ yrs 07/29/2019 TD - Tetanus/Diptheria (ADULT) 02/04/2006 TDAP [...] Telephone Encounter - Dayana Krishnamurthy DO - 05/30/2024 10:39 AM EDTSigned Prescriptions: Disp Refills traMADol HCl 50 MG Oral Tablet (Ultram) 60 Tab*0 Sig: TAKE 1 TABLET BY MOUTH 2 TIMES A DAY NEEDED FOR PAIN, SEVERE.Authorizing Provider: DAYANA KRISHNAMURTHY * Telephone Encounter - Dayana Krishnamurthy DO - 05/30/2024 10:38 AM EDT I have reviewed the patients controlled substance dispensing history in the Prescription Drug Monitoring Program in compliance with the [facility] regulations before prescribing a controlled substance. Last Tox Screen Results: No results found. However, due to the size of the patient record, not all encounters were searched.Please check Results Review for a complete set of results. Medication is due. * Telephone Encounter - Martina Neri formerly [facility] - 05/30/2024 7:33 AM EDT Pending Prescriptions: Disp Refills traMADol HCl 50 MG Oral Tablet [Pharmacy M*60 Tab*0 Sig: TAKE 1 TABLET BY MOUTH 2 TIMES A DAY NEEDED FOR PAIN, SEVERE. * Telephone Encounter - Martina Neri formerly [facility] - 05/30/2024 7:28 AM EDT I have reviewed the patients controlled substance dispensing history in the Prescription Drug Monitoring Program in compliance with the [facility] regulations before prescribing a controlled substance. PDMP checked on 05/30/2024. Pending Prescriptions: Disp Refills traMADol HCl 50 MG Oral Tablet (Ultram) [*60 Tab*0 Sig: TAKE 1 TABLET BY MOUTH 2 TIMES A DAY NEEDED FOR PAIN, SEVERE. Last Visit: 04/27/2024 (in office), Visit date not found (telemedicine) Next Visit: 07/21/2024 Date medication was last filled: 04/22/24 Date medication is due for refill: 05/21/24 Pharmacy: [id number] Is this request for a controlled substance? Yes and Urine Drug Screen Not completed Toxicology results: No results found. However, due to the size of the patient record, not all encounters were searched.Please check Results Review for a complete set of results. Please approve if appropriate. Thank you, Martina Neri, PharmD Clinical Pharmacist [facility] ([facility]) [phone] 05/30/2024, 7:33 AM documented in this encounter Plan of Treatment Upcoming Encounters Date Type Department Care Team (Late st Contact Info) Description 06/15/2024 10:30 AM EDT Office Visit Orthopaedics [facility] [address] [address] Jose Manuel Berry MD [address] [place] [address] 07/21/2024 11:00 AM EDT Office Visit Family Practice 65 [facility] 293 [place] [address] Dayana Krishnamurthy, DO 293 [place] [address] 01/06/2025 11:00 AM EDT Nurse Only Ancillary 65 [facility] 293 [place] [address] College, Nurse Annual Wellness Visit [address] [place] [address] 02/22/2025 10:40 AM EDT Office Visit Rheumatology [place] [phone] [facility] [place] [address] Best Wilkins MD [address] [place] [address] Health Maintenance Due Date Last Done Comments Alpha-1 Antitrypsin 1958 COVID-19 Vaccine ( season) 2023 10/07/2022, 04/22/2022, 08/14/2021, Additional history exists Influenza Vaccine (FLU shot) (#1) 2024 07/07/2023, 06/25/2022, 07/12/2021, Additional history exists Adult Wellness Visit 01/03/2025 01/04/2024, 12/30/2022, 07/18/2021 Depression Screening 01/03/2025 01/04/2024 O2 ASSESSMENT COMPLETED IN PAST YEAR FOR COPD 04/27/2025 04/27/2024 Albumin/Creatinine Ratio 06/25/2025 06/25/2022 DXA Scan 02/21/2026 02/22/2024, 11/0 04/2018, 07/21/2016, Additional history exists DTaP,Tdap,and Td Vaccines (3 - Td or Tdap) 09/11/2030 [...] this encounter Medical Devices Implanted Type Area Whirley Operator Device Identifier Shelf Expiration Date Model / Serial / Lot Fidel Bio Composite X5 - [id number] Implanted:Qty: 3 on 07/02/2017 by Gael Stratton MD at OR [facility] Left: Shoulder [employer] 02/01/2019 AR-1927BCF / / [id number] [place] [employer] Pushlock 4.5x24mm - [id number] Implanted:Qty: 3 on 07/02/2017 by Gael Stratton MD at OR [facility] Left: Shoulder [employer] 02/01/2019 AR-1922BC / / [id number] Lens Intraoc 19.0 - [id number] - [id number] Implanted:Qty: 1 on 12/26/2021 by Saurav Cohen MD at OR [facility] Left: Eye [employer]USCH [employer] LOMB 10/04/2026 [id number] / [id number] / [id number] Lens Intraoc 19.0 - [id number] - [id number] Implanted:Qty: 1 on 01/09/2022 by Saurav Cohen MD at [facility] Right: Eye BAUSCH [employer] LOMB 10/04/2026 [id number] / [id number] / [id number] documented as of this encounter Visit Diagnoses Diagnosis GENERAL OSTEOARTHROSIS Generalized osteoarthrosis, unspecified site documented in this encounter Care Teams Receiving Weigher Relationship Specialty Start Date End Date Dayana Krishnamurthy DO [address] [place] [address] PCP - General Internal Medicine 03/17/24 documented as of this encounter
--- OUTSIDE RECORDS SUMMARY | 2024-11-25 12:26 | External Medical Summary | Summary of Care ---
Author Name Unknown Organization [facility] Address [address] [place] [address] Phone [phone] Care Team Providers Care Quarter Seamer Name Role Phone Teofilo Krishnamurthy DO Primary Care Provider [phone] Encounter Details Date Type Department Care Team (Late st Contact Info) Description 06/08/2024 Documentation HEALTH & WELLNESS Pearl Pena, Health Manager Market Development Allergies No known active allergiesdocumented as of this encounter (statuses as of 06/08/2024) Medications Medication Sig Dispensed Refills Start Date [...] GASIndications:COPD, group B, by GOLD 2017 classification ([facility]) Administer into nostril 3 L/min(Oxygen) continuous . [...] as of this encounter (statuses as of 06/08/2024) Active Problems Problem Noted Date Diagnosed Date [...] as of this encounter (statuses as of 06/08/2024) Resolved Problems Problem Noted Date Diagnosed Date [...] as of this encounter (statuses as of 06/08/2024) Immunizations Name Administration Dates Next Due COVID-19 [...] No 11/09/2023 Does the household have a [facility] source of income? (Household - for ages [...] encounter Progress Notes * Pearl Pena Health Manager Market Development - 06/08/2024 12:07 PM EDT SESSION TYPE: Group exercise session: [...] 06/15/2024 10:30 AM EDT Office Visit Orthopaedics [facility] [address] [place] [address] Jose Manuel Berry MD [address] [place] [address] 07/21/2024 11:00 AM EDT Office Visit Family Practice [address] [place] [address] [address] [facility] [address] Teofilo Krishnamurthy, DO 293 [facility], [place] [address] 01/06/2025 11:00 AM EDT Nurse Only Ancillary [address], [place] 293 [facility], [place] [address] College, Nurse Annual Wellness Visit [address] [facility] 293 [facility] [address] 02/22/2025 10:40 AM EDT Office Visit Rheumatology [facility] [address] [employer] [place] [address] Best Wilkins MD [address] [employer] [place] [address] Health Maintenance Due Date Last Done Comments [...] this encounter Medical Devices Implanted Type Area Trim Carpenter Device Identifier Shelf Expiration Date Model / Serial / Lot Fidel Bio Composite X5 - [id number] Implanted:Qty: 3 on 07/02/2017 by Gael Stratton MD at OR [facility] Left: Shoulder [employer] 02/01/2019 AR-1927BCF / / [id number] [place] Pushlock 4.5x24mm - [id number] Implanted:Qty: 3 on 07/02/2017 by Gael Stratton MD at OR [facility] Left: Shoulder [employer] 02/01/2019 AR-1922BC / / [id number] Lens Intraoc 19.0 - [id number] - [id number] Implanted:Qty: 1 on 12/26/2021 by Saurav Cohen MD at OR [facility] Left: Eye [employer]USCH [employer] LOMB 10/04/2026 [id number] / [id number] / [id number] Lens Intraoc 19.0 - [id number] - [id number] Implanted:Qty: 1 on 01/09/2022 by Saurav Cohen MD at OR [facility] Right: Eye [employer] LOMB 10/04/2026 [id number] / [id number] / [id number] documented as of this encounter Care Teams Quarter Seamer Relationship Specialty Start Date End Date Teofilo Krishnamurthy DO [address] [place] [address] PCP - General Internal Medicine 03/17/24 documented as of this encounter
--- OUTSIDE RECORDS SUMMARY | 2024-11-25 12:26 | External Medical Summary | Summary of Care ---
Author Name Unknown Organization [facility] Address [address] [place] [address] Phone [phone] Care Team Providers Care Nuclear Physics Teacher Name Role Phone Teofilo Krishnamurthy DO Primary Care Provider [phone] Encounter Details Date Type Department Care Team (Late st Contact Info) Description 06/17/2024 Documentation HEALTH & WELLNESS Pearl Pena, Health Business Investor Allergies No known active allergiesdocumented as of this encounter (statuses as of 06/17/2024) Medications Medication Sig Dispensed Refills Start Date [...] group B, by GOLD 2017 classification ([facility]) Administer into nostril 3 L/min(Oxygen) continuous . [...] as of this encounter (statuses as of 06/17/2024) Active Problems Problem Noted Date Diagnosed Date [...] as of this encounter (statuses as of 06/17/2024) Resolved Problems Problem Noted Date Diagnosed Date [...] as of this encounter (statuses as of 06/17/2024) Immunizations Name Administration Dates Next Due COVID-19 [...] encounter Progress Notes * Pearl Pena Health Business Investor - 06/17/2024 10:58 AM EDT SESSION TYPE: One-on-one exercise session: Exercise Subtype or Modality: Balance Training Weight: Blood pressure: Planned Exercise Routine: Balance/Stability: tandem stance, tandem stance on foam, single leg stance,tandem walk, tandem walkbackwards, Cardio Trainin minutes of cardio on compact strider, Flexibility/ROM: lumbar flexionwith stability ball , and Lower Body Strength: seated knee raises, seated knee extension, ball squeeze, heel raises, standing hip abduction, standing knee flexion Frequency: 2x week Duration: 30-45 minutes Patient completed a one-on-one exercise session and tolerated exercise well. documented in this encounter Plan of Treatment Upcoming Encounters Date Type Department Care Team (Late st Contact Info) Description 07/21/2024 11:00 AM EDT Office Visit Family Practice [address] [place] [address] [place] [address] Teofilo Krishnamurthy, DO 293 [place] [address] 01/06/2025 11:00 AM EDT Nurse Only Ancillary [address] [place] 293 [place] [address] College, Nurse Annual Wellness Visit [address] [facility] 293 [facility], [place] [address] 02/22/2025 10:40 AM EDT Office Visit Rheumatology [facility] [address] [facility] [place] [address] Best Wilkins MD [address] [place] [address] Health Maintenance Due Date Last Done Comments [...] this encounter Medical Devices Implanted Type Area Clay Machine Operator Device Identifier Shelf Expiration Date Model / Serial / Lot Fidel Bio Composite X5 - [id number] Implanted:Qty: 3 on 07/02/2017 by Gael Stratton MD at OR [facility] Left: Shoulder [employer] 02/01/2019 AR-1927BCF / / [id number] Pushlock 4.5x24mm - [id number] Implanted:Qty: 3 on 07/02/2017 by Gael Stratton MD at OR [facility] Left: Shoulder [employer] 02/01/2019 AR-1922BC / / [id number] Lens Intraoc 19.0 - [id number] - [id number] Implanted:Qty: 1 on 12/26/2021 by Saurav Cohen MD at OR [facility] Left: Eye [employer]USCH [employer] LOMB 10/04/2026 [id number] / [id number] / [id number] Lens Intraoc 19.0 - [id number] - [id number] Implanted:Qty: 1 on 01/09/2022 by Saurav Cohen MD at OR [facility] Right: Eye [employer]USCH [employer] LOMB 10/04/2026 [id number] / [id number] / [id number] documented as of this encounter Care Teams Nuclear Physics Teacher Relationship Specialty Start Date End Date Teofilo Krishnamurthy DO [address] [place] [address] PCP - General Internal Medicine 03/17/24 documented as of this encounter
--- OUTSIDE RECORDS SUMMARY | 2024-11-25 12:26 | External Medical Summary | Summary of Care ---
Author Name Unknown Organization [facility] Address [address] [place] [address] Phone [phone] Care Team Providers Care Fill Plant Operator Name Role Phone Teofilo Krishnamurthy DO Primary Care Provider [phone] Encounter Details Date Type Department Care Team (Late st Contact Info) Description 06/01/2024 Documentation HEALTH & WELLNESS Pearl Pena, Health Embossing Toolsetter Allergies No known active allergiesdocumented as of this encounter (statuses as of 06/01/2024) Medications Medication Sig Dispensed Refills Start Date [...] 2017 classification ([facility]) Administer into nostril 3 L/min(Oxygen) continuous . [...] as of this encounter (statuses as of 06/01/2024) Active Problems Problem Noted Date Diagnosed Date [...] as of this encounter (statuses as of 06/01/2024) Resolved Problems Problem Noted Date Diagnosed Date [...] as of this encounter (statuses as of 06/01/2024) Immunizations Name Administration Dates Next Due COVID-19 [...] encounter Progress Notes * Pearl Pena Health Embossing Toolsetter - 06/01/2024 3:34 PM EDT SESSION TYPE: Group exercise session: [...] 06/15/2024 10:30 AM EDT Office Visit Orthopaedics [facility] [address] [place] [address] Jose Manuel Berry MD [address] [place] [address] 07/21/2024 11:00 AM EDT Office Visit Family Practice [address] [place] [address] [address] [facility] [address] Teofilo Krishnamurthy, 293 [place] [address] 01/06/2025 11:00 AM EDT Nurse Only Ancillary [address] [place] 293 [place] [address] College, Nurse Annual Wellness Visit [address], [place] [address] 02/22/2025 10:40 AM EDT Office Visit Rheumatology [facility] 2520 [facility] [place] [address] Bets Wilkins MD [address] [place] [address] Health Maintenance Due Date Last Done Comments [...] this encounter Medical Devices Implanted Type Area Ignition Specialist Device Identifier Shelf Expiration Date Model / Serial / Lot Fidel Bio Composite X5 - [id number] Implanted:Qty: 3 on 07/02/2017 by Gael Stratton MD at OR [facility] Left: Shoulder [employer] 02/01/2019 AR-1927BCF / / [id number] [place] Pushlock 4.5x24mm - [id number] Implanted:Qty: 3 on 07/02/2017 by Gael Stratton MD at OR [facility] Left: Shoulder [employer] 02/01/2019 AR-1922BC / / [id number] Lens Intraoc 19.0 - [id number] - [id number] Implanted:Qty: 1 on 12/26/2021 by Saurav Cohen MD at OR [facility] Left: Eye [employer]CH [employer] LOMB 10/04/2026 [id number] / [id number] / [id number] Lens Intraoc 19.0 - [id number] - [id number] Implanted:Qty: 1 on 01/09/2022 by Saurav Cohen MD at OR [facility] Right: Eye [employer]CH [employer] LOMB 10/04/2026 [id number] / [id number] / [id number] documented as of this encounter Care Teams Fill Plant Operator Relationship Specialty Start Date End Date Teofilo Krishnamurthy DO [address] [place] [address] PCP - General Internal Medicine 03/17/24 documented as of this encounter
--- OUTSIDE RECORDS SUMMARY | 2024-11-25 12:26 | External Medical Summary | Summary of Care ---
Author Name Unknown Organization [facility] Address [address] [place] [address] Phone [phone] Care Team Providers Care Shoe Planner Name Role Phone Teofilo Krishnamurthy DO Primary Care Provider [phone] Encounter Details Date Type Department Care Team (Late st Contact Info) Description 06/15/2024 Documentation HEALTH & WELLNESS Pearl Pena, Health Jingle Writer Allergies No known active allergiesdocumented as of this encounter (statuses as of 06/15/2024) Medications Medication Sig Dispensed Refills Start Date [...] group B, by GOLD 2017 classification ([facility]) Administer into nostril 3 L/min(Oxygen) continuous [...] as of this encounter (statuses as of 06/15/2024) Active Problems Problem Noted Date Diagnosed Date [...] as of this encounter (statuses as of 06/15/2024) Resolved Problems Problem Noted Date Diagnosed Date [...] as of this encounter (statuses as of 06/15/2024) Immunizations Name Administration Dates Next Due COVID-19 [...] 11/09/2023 Does the household have a presbyterian hospitallar source of income? (Household - for [...] encounter Progress Notes * Pearl Pena Health Jingle Writer - 06/15/2024 11:53 AM EDT SESSION TYPE: Group exercise session: Exercise Subtype or Modality: Balance Training Patient completed a group exercise session which consisted of balance training. All exercises included improving balance and strength of lower extremities. He tolerated the exercises well and had no complaints. documented in this encounter Plan of Treatment Upcoming Encounters Date Type Department Care Team (Late st Contact Info) Description 06/17/2024 10:00 AM EDT Office Visit Family Practice [address] [facility] [address] [place] [id number] [place], Health Jingle Writer [facility] Prac [address], [place] [address] 07/21/2024 11:00 AM EDT Office Visit Family Practice [address] [place] [address] Teofilo Krishnamurthy, DO [address] [facility], [place] [address] 01/06/2025 11:00 AM EDT Nurse Only Ancillary [address] [place] [address] [place] [address] College, Nurse Annual Wellness Visit [address] [place] [address] 02/22/2025 10:40 AM EDT Office Visit Rheumatology [facility] [address] [place] [address] Best Wilkins MD [address] [place], [place] [address] Health Maintenance Due Date Last Done Comments [...] this encounter Medical Devices Implanted Type Area Curb Machine Operator Device Identifier Shelf Expiration Date Model / Serial / Lot Fidel Bio Composite X5 - [id number] Implanted:Qty: 3 on 07/02/2017 by Gael Stratton MD at OR [facility] Left: Shoulder [employer] 02/01/2019 [id number] / / [id number] [place] 4.5x24mm - [id number] Implanted:Qty: 3 on 07/02/2017 by Gael Stratton MD at OR [facility] Left: Shoulder [employer] 02/01/2019 [id number] / / [id number] Lens Intraoc 19.0 - [id number] - [id number] Implanted:Qty: 1 on 12/26/2021 by Saurav Cohen MD at OR [facility] Left: Eye [employer] 10/04/2026 [id number] / [id number] / [id number] Lens Intraoc 19.0 - [id number] - [id number] Implanted:Qty: 1 on 01/09/2022 by Saurav Cohen MD at OR [facility] Right: Eye [employer] 10/04/2026 [id number] / [id number] / [id number] documented as of this encounter Care Teams Shoe Planner Relationship Specialty Start Date End Date Teofilo Krishnamurthy DO [address] [place] [address] PCP - General Internal Medicine 03/17/24 documented as of this encounter
--- NOTE | 2024-11-25 12:37 | XRay Report ---
XR ribs LT min 2V w CXR1V CLINICAL HISTORY: Left rib pain following fall. COMPARISON: Chest radiograph December 17, 2022. Chest CT March 01, 2024. FINDINGS: There is no pneumothorax or pleural effusion. No airspace opacities are present. Cardiomed iastinal silhouette is stable. Tortuosity of the descending thoracic aorta is again noted. There are acute nondisplaced fractures of the anterior left eighth, ninth and 10th ribs. IMPRESSION: Acute nondisplaced fractures of the anterior left eighth, ninth and 10th ribs. No pneumot horax. ACT 112: Negative or not required by law. Electronically signed by: William Gaona M.D. 11/25/2024 12:35 PM
--- NOTE | 2024-11-25 12:45 | Electrocardiogram Report ---
Test Reason : Blood Pressure : */* mmHG Vent. Rate : 61 BPM Atrial Rate : 61 BPM P-R Int : 160 ms QRS Dur : 70 ms QT Int : 376 ms P-R-T Axes : 32 12 16 degrees QTcB Int : 378 ms Normal sinus rhythm with sinus arrhythmia Normal ECG When compared with ECG of 16-Sep-2022 17:07, No significant change was found Confirmed by Rivera Chavez ([id number]) on 11/25/2024 12:45:03 PM Referred By: Confirmed By: Rivera Chavez
[2024-11-25] MEDS: OSELTAMIVIR PHOSPHATE 75 MG CAP PO STA (13:02)
[2024-11-25 13:26] LABS: Appearance Urine Clear (Clear); Bacteria Urine Automated None Seen (None Seen); Bilirubin Urine Negative (Negative); Blood Urine Negative (Negative); Cast Urine Automated 0-2 /lpf (0-2); Color Urine Yellow; Epithelial Cell Urine Auto 0-2 /hpf (0-2); Glucose Urine UA Negative (Negative); Ketones Urine 1+ (Negative); Leukocyte Esterase Urine Negative (Negative); Nitrite Urine Negative (Negative); Protein Urine 1+ (Negative); Specific Gravity Urine > 1.045 (1.000-1.030); Urobilinogen Urine Negative (Negative); WBC Urine Automated 0-5 /hpf (0-5); pH Urine 5.5 (4.5-7.5)
[2024-11-25] MEDS: SODIUM CHLORIDE 0.9% 1,000 ML IV ONE (14:35)
[2024-11-25] MEDS: BENZONATATE 100 MG CAPSULE PO ONE (14:36)
[2024-11-25] MEDS: LIDOCAINE 5% 1 PATCH TD STA (14:36)
--- NOTE | 2024-11-25 15:06 | History & Physical Report ---
Date of Service November 25, 2024 Assessment & Plan (1) Generalized weakness: (2) Acute hypoxemic respiratory failure: (3) Influenza A: (4) COPD (chronic obstructive pulmonary disease): (5) Hypertension: (6) GERD (gastroesophageal reflux disease): Plan Acute on chronic hypoxic respiratory failure, baseline 3 L O2 supplementation Influenza A COPD ZHANE on CPAP -Admit to med telemetry -Continue with supportive respiratory therapies including DuoNebs, Tamiflu, Tessalon Perle, Mucinex -Rib fractures noted on CXR involving left anterior 8, 9, 10, pain control with Tylenol, lidocain patch and tramadol may be used if needed for moderate to severe pain, splinting with cough, incentive spirometry, flutter, encourage deep breaths -Patient noted to be hypoxic with O2 sats 87% on arrival on 3 L, increased to 4 L, maintain O2 sats 88 to 92% - Ambulate with assistive device. PT/OT consults HTN -Continue home meds including losartan, amlodipine tomorrow pending BP improves GERD -Continue omeprazole DVT ppx: teds, scds Lines: PIV x 1 FEN/GI: Heart healthy CODE: Full code Dispo: From home, likely to remain in the hospital x 1-2 days I spent a total of 75 minutes with greater than 50% of that time face to face with the patient, personally reviewing all current laboratories, imaging studies, past medication reconciliation, outpatient chart review, and discussion with specialists to collaborate care for the patient excluding time spent in the performance of separately billed services or time spent by another provider/QHP. Please see attending documentation for corrections and/or additions. History of Present Illness Chief Complaint: Weakness Primary Care Provider: Teofilo Krishnamurthy DO This is an 84-year-old male with a PMHx of COPD, chronic respiratory failure with hypoxia, baseline O2 of 3 L, obstructive sleep apnea, HTN, GERD, lumbar degenerative disc disease, B12 deficiency overactive bladder, BPH who presents to the hospital with acute onset of weakness. He states that he has not been feeling well for about a month. Pt notes that about 1 month ago was seen by his PCP. He admits to having a granddaughter living with him and his at home who had a cold recently. He believes he caught it from her. Pt denies fever, chills, sweats, but is coughing quite a bit and feels pain in the left side of his chest. Pt notes that yesterday he fell twice at home. Denies hitting his head. He has a small injury on his left knee. Patient is found to be influenza A positive, O2 sats were diminished at 87% while on 3 L, he has been titrated up to 4 L and maintaining sats between 88 and 90%. Also noted on chest x-ray is left anterior rib fractures 8, 9, 10. He has been started on DuoNeb, doxycycline 100 mg IV, Tamiflu, and Solu-Medrol 125 mg IV, Tessalon Perle in the ER. Allergies Allergy/AdvReac Type Severity Reaction Status Date / Time No Known Drug Allergies Allergy NKDA Verified 04/12/24 16:29 Home Medications Medication Instructions Recorded Confirmed Type ascorbic acid (vitamin C) 500 mg 500 mg PO DAILY 06/14/19 11/25/24 History tablet losartan 25 mg tablet 25 mg PO QAM 06/14/19 11/25/24 History diclofenac sodium 1 % topical gel 2 gm topical QID PRN Pain 01/18/20 11/25/24 History omeprazole 20 mg capsule,delayed 20 mg PO DAILY 01/18/20 11/25/24 History release polyethylene glycol 3350 17 17 gm PO HS 01/18/20 11/25/24 History gram/dose oral powder (Miralax) potassium citrate 10 mEq (1,080 10 meq PO TID 01/18/20 11/25/24 History mg) tablet,extended release wheat dextrin 5 gram/7.4 gram oral 4 gm PO HS 01/18/20 11/25/24 History powder (Benefiber Healthy Shape) amlodipine 5 mg tablet 5 mg PO DAILY 06/21/22 11/25/24 History calcium 600 mg (as 1 cap PO DAILY 06/30/22 11/25/24 History carbonate)-vitamin D3 5 mcg (200 unit) capsule (Calcium 600 + D(3)) cyanocobalamin (vitamin B-12) 1,000 mcg PO DAILY 06/30/22 11/25/24 History 1,000 mcg tablet (Vitamin B-12) donepezil 10 mg tablet 10 mg PO HS 06/30/22 11/25/24 History fluoride (sodium) 1.1 % dental 1 applic PO DAILY 06/30/22 11/25/24 History paste Portable Oxygen #1 ea 07/15/22 04/12/24 Rx gabapentin 100 mg capsule 100 mg PO TID 07/25/22 11/25/24 History cholecalciferol (vitamin D3) 50 50 mcg PO DAILY 09/16/22 11/25/24 History mcg (2,000 unit) tablet (Vitamin D3) guaifenesin 600 mg tablet, 600 mg PO HS 09/16/22 11/25/24 History extended release 12 hr (Mucinex) tramadol 50 mg tablet 50 mg PO BID PRN Pain 09/16/22 11/25/24 History CPAP Supplies #1 ea 11/23/23 04/12/24 Rx finasteride 5 mg tablet 5 mg PO DAILY #90 tabs 05/17/24 11/25/24 Rx tamsulosin 0.4 mg capsule 0.4 mg PO DAILY #90 caps 05/17/24 11/25/24 Rx fluticasone fur. 100 mcg-umeclid 1 inh inhalation DAILY #3 Inhalers 10/27/24 11/25/24 Rx 62.5 mcg-vilant 25 mcg inhalat.powder (Trelegy Ellipta) mirtazapine 7.5 mg tablet 7.5 mg PO HS 11/25/24 11/25/24 History Past Med/Surg History Problem List (Updated 11/25/24 @ 15:01 by Sirena Mcrae PA-C) Influenza A Ground glass opacity present on imaging of lung Chest x-ray abnormality COPD exacerbation Generalized weakness (Acute) Bilateral interstitial pneumonia (Acute) Falls (Acute) BPH with obstruction/lower urinary tract symptoms Multiple pulmonary nodules determined by computed tomography of lung Acute hypoxemic respiratory failure Hypoxia (Acute) Closed rib fracture (Acute) Mild cognitive impairment Rib fractures (Acute) Cerumen impaction Encounter for pre-operative examination Back pain (Chronic) COPD (chronic obstructive pulmonary disease) (Chronic) Kidney stones (Chronic) H/O diverticulitis of colon (Chronic) Osteoarthritis (Chronic) Osteoporosis (Chronic) GERD (gastroesophageal reflux disease) (Chronic) 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 " ZHANE (obstructive sleep apnea) (Chronic) Hypertension (Chronic) BPH (benign prostatic hypertrophy) (Chronic) S/P colonoscopy (Chronic) Emphysema lung (Acute) Hydronephrosis (Acute) Renal colic (Acute) Dyspnea Cough Medical History Pneumonia Chest pain Hypoxemia COPD (chronic obstructive pulmonary disease) COVID Osteoporosis Osteoarthritis Kidney stones BPH (benign prostatic hyperplasia) Inguinal hernia GERD (gastroesophageal reflux disease) Hearing deficit Memory changes Hypertension Chronic obstructive pulmonary disease Sleep apnea Surgical History History of shoulder surgery History of foot surgery History of cholecystectomy History of herniorrhaphy History of surgery on wrist History of ankle surgery History of lithotripsy History of colonoscopy Family History Mother Cancer Father Sudden Other No family history of allergies Social History Smoking Status: Former smoker Tobacco Type: Cigarettes Age Started Using Tobacco: 17; Age Quit Using Tobacco: 49; packs per day: 1; Second Hand Exposure: No; Do You Dip or Chew Tobacco: No; Hx Alcohol Use: No Hx Substance Use: No Preferred Language: Maori Communication Ability: Effective 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 Beliefs That Will Affect Care: None marital status: Current Living Situation: Spouse Current Living Situation Comment: two story house with , grandson/gf and great grand child current occupational status: retired Feels Safe at Home: Yes Assistive Devices: Cane, Glasses, Oxygen - Continuous and Walker Review of Systems Review of Systems: Constitutional: No fever, sweats or chills Eyes: No diplopia, no worsening or blurred vision ENT: + hard of hearing, no trouble swallowing Respiratory: No cough, sputum, dyspnea at rest or on exertion Cardiovascular: No chest pain, tightness or palpitations Abdomen: No pain, nausea, vomiting, diarrhea or constipation Musculoskeletal: No joint pain, calf pain, swelling Neurologic: No weakness, numbness/tingling, or balance problems Psychiatric: No anxiety or depression Skin: No rash or itch Physical Exam Physical Exam: General: awake, alert, no apparent distress, elderly white male, repeats my questions at times with delay in answering Head: Normocephalic, atraumatic ENT: PERRL, EOMI, no pharyngeal exudate, mucous membranes moist Chest: On 4 L via NC with sats 89%, diminished breath sounds throughout, + cough nonproductive, no wheeze rales or rhonchi. Cardiac: Regular rate and rhythm, no murmur, no JVD, normal peripheral pulses, good capillary refill Abdominal: NABS x 4 quadrants, soft, nondistended, nontender to palpation, no rebound or guarding Extremities: Normal inspection, no peripheral edema or erythema, calfs nontender to palpation Psych: Normal mood and affect Neuro: AAO to self, place. strength intact bilaterally and rated 5/5, no motor deficits, speech is clear, no peripheral sensory deficits. Pt does repeat himself and my questions at times, forgetful Results & Data Results & Data Vital Signs (Past 12 Hours) Vital Signs Temp Pulse Resp BP Pulse Ox O2 Del Method O2 Flow Rate 11/25/24 13:18 106/56 L 11/25/24 13:18 106/56 L 11/25/24 13:12 74 19 88 L Nasal Cannula 4 11/25/24 13:03 78 15 87 L Nasal Cannula 4 11/25/24 11:30 113/64 11/25/24 11:27 64 19 98 Nasal Cannula 5 11/25/24 11:06 65 18 94 Nasal Cannula 5 11/25/24 11:00 124/57 L 11/25/24 10:57 60 18 94 Nasal Cannula 5 11/25/24 10:56 87 L Nasal Cannula 3 11/25/24 10:36 63 17 120/62 92 5 11/25/24 10:26 37 C 71 22 126/73 87 L Nasal Cannula 3 11/25/24 10:09 67 Laboratory Results 11/25/24 11/25/24 11/25/24 13:03 10:36 10:30 WBC 7.72 RBC 4.58 L Hgb 15.0 POC Hgb 14.6 Hct 43.5 POC Hct 43 MCV 95.0 MCH 32.8 MCHC 34.5 RDW Std Deviation 49.5 H RDW Coeff of Smitha 14.2 Plt Count 144 MPV 10.9 Immature Gran % (Auto) 0.1 Neut % (Auto) 79.8 Lymph % (Auto) 7.4 Tucker % (Auto) 12.4 Eos % (Auto) 0.0 Baso % (Auto) 0.3 Neut # (Auto) 6.16 Lymph # (Auto) 0.57 L Tucker # (Auto) 0.96 H Eos # (Auto) 0.00 Baso # (Auto) 0.02 Immature Gran # (Auto) 0.01 VBG pH 7.43 H VBG pCO2 39 VBG pO2 49 VBG HCO3 26 VBG O2 Saturation 82.4 VBG Base Excess 1.5 POC Sodium 140 Sodium 139 POC Potassium 4.2 Potassium 4.2 POC Chloride 105 Chloride 106 Carbon Dioxide 27 POC Total CO2 23 L Anion Gap 6 POC Anion Gap 17.0 POC BUN 19 H BUN 19 Creatinine 1.20 POC Creatinine 1.3 Est Cr Clr Drug Dosing 50.7 eGFR 59.26 BUN/Creatinine Ratio 15.8 Glucose 90 POC Glucose (other) 91 Calcium 8.9 POC Ioniz Calcium Pallavi 1.15 Total Bilirubin 0.9 AST 29 ALT 14 Alkaline Phosphatase 60 Total Protein 6.6 Albumin 3.6 Globulin 3.0 Albumin/Globulin Ratio 1.2 Procalcitonin 0.34 TSH 1.588 Urine Color Yellow Urine Appearance Clear Urine pH 5.5 Ur Specific [place] > 1.045 H Urine Protein 1+ H Urine Glucose (UA) Negative Urine Ketones 1+ H Urine Blood Negative Urine Nitrite Negative Urine Bilirubin Negative Urine Urobilinogen Negative Ur Leukocyte Esterase Negative Urine WBC (Auto) 0-5 Urine RBC (Auto) 3-5 H U Hyaline Cast (Auto) 0-2 U Epithel Cells (Auto) 0-2 Urine Bacteria (Auto) None Seen Nasal Influ A H1 2008 PCR DETECTED A Adenovirus (PCR) Not Detected B. pertussis DNA (PCR) Not Detected B.parapertussis DNA PCR Not Detected C. pneumoniae DNA (PCR) Not Detected Coronavirus OC43 (PCR) Not Detected Coronavirus HKU1 (PCR) Not Detected Coronavirus 229E (PCR) Not Detected SARS-CoV-2 (PCR) Not Detected Coronavirus NL63 (PCR) Not Detected Human Metapneumovir PCR Not Detected Influenza Type B (PCR) Not Detected M. pneumoniae (PCR) Not Detected Parainfluenza 1 (PCR) Not Detected Parainfluenza 2 (PCR) Not Detected Parainfluenza 3 (PCR) Not Detected Parainfluenza 4 (PCR) Not Detected RSV (PCR) Not Detected Entero/Rhino (PCR) Not Detected Diagnostic Findings Abdomen/Pelvis CT 11/25/24 10:[address] WITH IV CONTRAST CT DOSE: 1258.96 mGy.cm HISTORY: L sided ab pain, falls TECHNIQUE: Multiaxial CT images of the abdomen and pelvis were performed following the IV administration of 94 cc of Optiray, sagittal and coronal reconstructions were done. A dose lowering technique was utilized adhering to the principles of ALARA. COMPARISON STUDY: 09/19/2022 FINDINGS: Lung bases demonstrate minor left basilar discoid atelectasis. The solid organs are unremarkable with regard to trauma. There is hepatic steatosis. There is right nephrolithiasis. No hydronephrosis. The gallbladder is absent. The bile ducts are nondilated. There is no pancreatic, splenic, or adrenal lesion is depicted. There is no aneurysmal dilatation of the aorta. There is mural thrombus infrarenally. There is no periaortic adenopathy. There is no bowel obstruction or free air. There is no ascites. There is no evidence of colitis or diverticulitis. In the pelvis, numerous sigmoid diverticula are present without inflammatory change. The appendix is normal. There is no fluid in the cul-de-sac. Unopacified urinary bladder is incompletely distended. Prostatic calcifications are noted. The bone windows demonstrate no acute injuries. IMPRESSION: No acute findings in the abdomen and pelvis. ACT 112: Negative or not required by law. The above report was generated using voice recognition software. It may contain grammatical, syntax or spelling errors. Electronically signed by: Sendy Waggoner M.D. 11/25/2024 11:04 AM Ribs w/Chest X-Ray 11/25/24 10:25 XR ribs LT min 2V w CXR1V CLINICAL HISTORY: Left rib pain following fall. COMPARISON: Chest radiograph December 17, 2022. Chest CT March 01, 2024. FINDINGS: There is no pneumothorax or pleural effusion. No airspace opacities are present. Cardiomediastinal silhouette is stable. Tortuosity of the descending thoracic aorta is again noted. There are acute nondisplaced fractures of the anterior left eighth, ninth and 10th ribs. IMPRESSION: Acute nondisplaced fractures of the anterior left eighth, ninth and 10th ribs. No pneumothorax. ACT 112: Negative or not required by law. Electronically signed by: William Gaona M.D. 11/25/2024 12:35 PM Code Status & VTE Plan Code Status Full code - discussed with pt at bedside Supervising Physician Co-Signing Physician Notes Pt seen and examined by me, care coordinated calos Mcrae pls refer to her note above for further detail. 84 yo M with COPD, chronic respiratory failure with hypoxia, baseline O2 of 3 L, obstructive sleep apnea, HTN, GERD, lumbar degenerative disc disease, B12 deficiency overactive bladder, BPH who presents with weakness, 2 falls and is found to be positive for influenza. Also found to have multiple rib fractures. Currently lying in bed in NAD, able to answer simple questions appropriately. no facial asymmetry. lungs without wheezes, somewhat diminished breath sounds. heart sounds regular. abdomen soft, nontender. pt moves extremities, no LE edema. Currently on 4 L of suppl. O2. Pt was started on DuoNeb, doxycycline, Tamiflu, and Solu-Medrol, will cont. for now. Cont. to closely monitor. MD Gennaro (4) COPD (chronic obstructive pulmonary disease) COPD type: emphysema Emphysema type: centrilobular Qualified Code(s): J43.2 - Centrilobular emphysema
[2024-11-25] MEDS ORDERED: ONDANSETRON INJ 2 MG/ML 2 ML VIAL IV PRN (18:41)
[2024-11-25] MEDS ORDERED: methylPREDNISolone 125 MG/2 ML VIAL IV SCH (18:41)
[2024-11-25] MEDS: methylPREDNISolone 40 MG in SYRINGE 0 ML IV SCH (19:58)
[2024-11-25] MEDS: ALBUT/IPRATROP 3MG/0.5MG NEB 3 ML VIAL NEB SCH (19:58)
[2024-11-25] MEDS: POTASSIUM CITRATE 10 MEQ TAB PO SCH (22:25)
[2024-11-25] MEDS: POLYETHYLENE (MIRALAX) 17 GM PACK PO SCH (22:25)
[2024-11-25] MEDS: guaiFENesin 600 MG TABCR PO SCH (22:26)
[2024-11-25] MEDS: MIRTAZAPINE TAB 15 MG TAB PO SCH (22:26)
[2024-11-25] MEDS: GABAPENTIN 100 MG CAP PO SCH (22:26)
[2024-11-25] MEDS: DONEPEZIL HCL 10 MG TAB PO SCH (22:26)
[2024-11-25] MEDS: OSELTAMIVIR PHOSPHATE SUSP 30 MG/5 ML UDP PO SCH (22:27)
--- OUTSIDE RECORDS SUMMARY | 2024-11-25 23:55 | External Medical Summary | Summary of Care ---
Author Name Unknown Organization [facility] Address [address] [place] [address] Phone [phone] Care Team Providers Care Stitch Wheeler Name Role Phone Teofilo Krishnamurthy DO Primary Care Provider [phone] Encounter Details Date Type Department Care Team (Late st Contact Info) Description 11/25/2024 Telephone Family Practice [address], [place] [address] [place] [address] Teofilo Krishnamurthy, [address] [place] [address] Allergies No known active allergiesdocumented as of this encounter (statuses as of 11/25/2024) Medications Polyethylene Glycol 3350 17 GM/SCOOP Oral [...] mouth in the morning. 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 [...] as of this encounter (statuses as of 11/25/2024) Active Problems Problem Noted Date Diagnosed Date [...] as of this encounter (statuses as of 11/25/2024) Resolved Problems Problem Noted Date Diagnosed Date [...] as of this encounter (statuses as of 11/25/2024) Immunizations Name Administration Dates Next Due COVID-19 mRNA, LNP-s, No Pre serve, 2-Dose Series ([facility]) 08/14/2021,12/11/2020,11/13/2020 COVID-19, LNP-s, No Preserve , Neal-sucrose, Ages 12+ (Pfizer) 04/22/2022 COVID-19, MRNA-LNP, PF, 30 M CG/0.3 mL, 12 YRS AND ABOVE, IM ([facility]) 07/12/2024 Covid-19, Mrna, Lnp-s, Pf, B ivalent, 30 Mcg, IM, 12 yrs and above ([facility]) 10/07/2022 Pneumococcal Conjugate Vacc, 13 Valent (Prevnar) 01/31/2015 Pneumococcal Conjugate Vacci ne, 20-valent ([id number]) 07/12/2024 RSV Vac., Bivalent, Perfusio n F, [...] Telephone Encounter - Teofilo Krishnamurthy DO - 11/25/2024 9:46 AM EST Noted. * Telephone Encounter - Opal Trivedi LPN - 11/25/2024 9:13 AM EST Patient called, states he fell yesterday. Fell at mail box and then in bathroom. Family called EMS, they helped patient up at bathroom fall. Patient refused to go to ER. Patient states today left side of pain, very weak legs, no strength. States left side weak, very weak not able to stand. Advised to call EMS. EMS called. documented in this encounter Plan of Treatment Upcoming Encounters Date Type Department Care Team (Late st Contact Info) Description 02/14/2025 1:40 PM EDT Office Visit Family Practice [address] [facility], [place] [address] [place] [address] Teofilo Krishnamurthy DO [address] [place] [address] 02/22/2025 10:40 AM EDT Office Visit Rheumatology [facility] [address] [place] [id number] Best Wilkins MD [address] [facility] [place] [address] Health Maintenance Due Date Last Done Comments Alpha-1 Antitrypsin 1958 *BISPHONATE OR OTHER ACCEPTABLE MEDICATION NEEDED FOR OSTEOPOROSIS (REFER TO SMARTSET #1146) 11/17/2024 Adult Wellness Visit 01/03/2025 01/04/2024, 12/30/2022, 07/18/2021 Depression Screening 01/03/2025 01/04/2024 COVID-19 Vaccine ( season) 2025 07/12/2024, 10/07/2022, 04/22/2022, Additional history exists Albumin/Creatinine Ratio 06/25/2025 06/25/2022 O2 ASSESSMENT COMPLETED IN PAST YEAR FOR COPD 11/14/2025 11/14/2024 DXA Scan 02/21/2026 02/22/2024, 04/2018, 07/21/2016, Additional history exists DTap/Tdap Vaccines (3 - Td or Tdap) 09/11/2030 09/11/2020, 04/23/2015, 02/04/2006 Zoster Vaccines Completed 02/17/2020, 11/06, 04/14/2012 VITAMIN D LEVEL ONCE IN A LIFETIME-USE SMARTSET# 25164 Completed 08/12/2022, 02/08/2018, 04/26/2014, Additional history exists Influenza Vaccine (FLU shot) [...] on patient's age to complete this topic Meningitis B Vaccine (Bexsero/Trumemba) Aged Out No longer eligible based on patient's age to complete this topic documented as of this encounter Medical Devices Implanted Type Area Vender Device Identifier Shelf Expiration Date Model / Serial / Lot Fidel Bio Composite X5 - [id number] Implanted:Qty: 3 on 07/02/2017 by Gael Stratton MD at OR [facility] Left: Shoulder [employer] 02/01/2019 [id number] / / [id number] [place] Pushlock 4.5x24mm - [id number] Implanted:Qty: 3 on 07/02/2017 by Gael Stratton MD at OR [facility] Left: Shoulder [employer] 02/01/2019 [id number] / / [id number] Lens Intraoc 19.0 - [id number] - [id number] Implanted:Qty: 1 on 12/26/2021 by Saurav Cohen MD at OR [facility] Left: Eye [employer] 10/04/2026 [id number] / [id number] / [id number] Lens Intraoc 19.0 - [id number] - [id number] Implanted:Qty: 1 on 01/09/2022 by Saurav Cohen MD at OR [facility] Right: Eye [employer] 10/04/2026 [id number] / [id number] / [id number] documented as of this encounter Care Teams Stitch Wheeler Relationship Specialty Start Date End Date Teofilo Krishnamurthy DO [address] [facility], [place] [address] PCP - General Internal Medicine 03/17/24 documented as of this encounter
[2024-11-26] MEDS: LIDOCAINE 5% 1 PATCH TD SCH (03:24)
[2024-11-26 06:06] LABS: Hematocrit (blood only) 42.5 % (42.0-52.0); Hemoglobin 14.6 g/dl (14.0-18.0); Mean Corpuscular Hemoglobin 32.2 pg (25.0-34.0); Mean Corpuscular Hgb Conc 34.4 g/dL (32.0-36.0); Mean Corpuscular Volume 93.8 fL (80.0-100.0); Mean Platelet Volume 11.2 fL (9.4-12.4); Platelet Count 127 K/uL (130-400); RDW Coefficient of Variation 14.1 % (11.5-14.5); RDW Standard Deviation 48.2 fL (36.4-46.3); Red Blood Count 4.53 M/uL (4.70-6.10); White Blood Count 7.57 K/ul (4.8-10.8)
[2024-11-26 06:26] LABS: BUN Creatinine Ratio 26.8 (10-20); Calcium 8.6 mg/dl (8.6-10.3); Creatinine Clr Calc Pharmacy 74.2 ml/min; Potassium 4.2 mmol/L (3.5-5.1)
[2024-11-26] MEDS ORDERED: NON-FORMULARY MEDICATION (Fluticasone-Umeclidin-Vilanter [Trelegy Ellipta] 100-62.5-25 mcg INH SCH (09:00)
[2024-11-26] MEDS: PANTOprazole 40 MG TAB PO SCH (09:56)
[2024-11-26] MEDS: LOSARTAN POTASSIUM 25 MG TAB PO SCH (09:56)
[2024-11-26] MEDS: FINASTERIDE 5 MG TAB PO SCH (09:56)
[2024-11-26] MEDS: TAMSULOSIN HCL 0.4 MG CAP PO SCH (09:56)
[2024-11-26] MEDS: CYANOCOBALAMIN (B-12) 500 MCG TABLET PO SCH (09:57)
[2024-11-26] MEDS: CHOLECALCIFEROL 25 MCG (1000 UNITS) TAB PO SCH (09:57)
[2024-11-26] MEDS: DOXYCYCLINE HYCLATE 100 MG CAP PO SCH (09:57)
[2024-11-26] MEDS: CALCIUM 600MG + VIT D 400 IU TAB PO SCH (09:58)
[2024-11-26] MEDS: ASCORBIC ACID 500 MG TAB PO SCH (09:58)
[2024-11-26] MEDS: UMECLIDINIUM/VILANTEROL 62.5/25MCG 7 PUFFS/INHALER INH SCH (09:59)
[2024-11-26] MEDS: FLUTICASONE FUROATE 100MCG 14 PUFFS/INHALER INH SCH (10:00)
[2024-11-26] MEDS: SODIUM CHLOR 7% 4 ML NEB NEB SCH (11:19)
--- NOTE | 2024-11-26 16:13 | Hospitalist Progress Note ---
Date of Service November 26, 2024 Assessment & Plan (1) Generalized weakness: (2) Acute hypoxemic respiratory failure: (3) Influenza A: (4) COPD (chronic obstructive pulmonary disease): (5) Hypertension: (6) GERD (gastroesophageal reflux disease): Plan Primary service notes with addendum: Acute on chronic hypoxic respiratory failure, baseline 3 L O2 supplementation Influenza A COPD ZHANE on CPAP -Admit to med telemetry -Continue with supportive respiratory therapies including DuoNebs, Tamiflu, Tessalon Perle, Mucinex -Rib fractures noted on CXR involving left anterior 8, 9, 10, pain control with Tylenol, lidocain patch and tramadol may be used if needed for moderate to severe pain, splinting with cough, incentive spirometry, flutter, encourage deep breaths -Patient noted to be hypoxic with O2 sats 87% on arrival on 3 L, increased to 4 L, maintain O2 sats 88 to 92% - Ambulate with assistive device. PT/OT consults 11/26 Continue present regimen including nebs 4 times daily, Solu-Medrol, Tamiflu, doxycycline, etc. Continue Lidoderm patch, pain control Encouraged to use incentive spirometer more HTN -Continue home meds including losartan, amlodipine tomorrow pending BP improves GERD -Continue omeprazole DVT ppx: teds, scds Lines: PIV x 1 FEN/GI: Heart healthy CODE: Full code Dispo: From home, likely to remain in the hospital x 1-2 days Admission and Anticipated Discharge Date Admission Date: November 25, 2024 Subjective Follow-up for flu, COPD exacerbation, acute on chronic hypoxic respiratory failure, etc. Seen resting in bed, on 6 L of O2 via nasal cannula Comfortable, not in distress, speaking in sentences with no effort States he is constipated, last bowel movement was yesterday Denies nausea vomiting, abdominal pain States breathing is fine, denies shortness of breath, has occasional cough No sputum No fevers or chills No other new symptoms Review of Systems Review of Systems: all noted and negative except for above Physical Exam Physical Exam: General- oriented x 3, not in distress, speaks in sentences with no effort or accessory muscle use Eyes- anicteric Neck- no JVD Lungs- Very minimal scattered rhonchi bilaterally, no wheezing, good air entry bilateral Heart- normal rate, regular rhythm; no murmurs Abdomen- normal bowel sounds, nondistended, soft, nontender Extremities- no pretibial edema, no calf tenderness Neuro- alert, oriented x 3; no gross focal neurologic deficits Skin- warm & dry Results & Data Results & Data Vital Signs (Past 12 Hours) Vital Signs Temp Pulse Pulse Resp BP BP Pulse Ox 11/26/24 14:41 69 22 91 11/26/24 14:03 89 L 11/26/24 14:00 120/62 11/26/24 12:00 36.4 C L 69 17 129/60 89 L 11/26/24 12:00 77 17 129/60 91 11/26/24 11:21 58 L 20 90 11/26/24 11:09 69 23 135/57 L 91 11/26/24 10:48 67 18 92 11/26/24 10:00 87 L 11/26/24 08:26 35.8 C L 11/26/24 08:00 53 L 18 143/68 H 95 11/26/24 07:56 56 L 11/26/24 07:14 51 L 18 93 11/26/24 07:13 51 L 20 96 11/26/24 07:03 52 L 23 93 11/26/24 07:00 123/66 11/26/24 06:09 11/26/24 06:08 35.6 C L 11/26/24 04:59 35.4 C L O2 Del Method O2 Flow Rate 11/26/24 14:41 Nasal Cannula 6 11/26/24 14:03 Nasal Cannula 6 11/26/24 14:00 11/26/24 12:00 Nasal Cannula 6 11/26/24 12:00 11/26/24 11:21 Nasal Cannula 6 11/26/24 11:09 11/26/24 10:48 11/26/24 10:00 Nasal Cannula 6 11/26/24 08:26 11/26/24 08:00 CPAP 11/26/24 07:56 11/26/24 07:14 6 11/26/24 07:13 CPAP 6 11/26/24 07:03 CPAP 11/26/24 07:00 11/26/24 06:09 CPAP 11/26/24 06:08 11/26/24 04:59 all noted and reviewed including below (4) COPD (chronic obstructive pulmonary disease) COPD type: emphysema Emphysema type: centrilobular Qualified Code(s): J43.2 - Centrilobular emphysema
[2024-11-26] MEDS: ENOXAPARIN INJ 40 MG/0.4 ML SYR SQ SCH (16:34)
[2024-11-26] MEDS: ACETAMINOPHEN 325 MG TAB PO PRN (21:28)
[2024-11-26] MEDS: OSELTAMIVIR PHOSPHATE 75 MG CAP PO SCH (21:29)
[2024-11-26] MEDS: DICLOFENAC SOD 1% GEL 100 GM TUBE EXT PRN (22:02)
[2024-11-27] MEDS: traMADol HCL 50 MG TABLET PO PRN (07:49)
[2024-11-27 09:29] LABS: Hemoglobin 14.4 g/dl (14.0-18.0); Mean Corpuscular Hemoglobin 31.9 pg (25.0-34.0); Mean Corpuscular Hgb Conc 33.5 g/dL (32.0-36.0); Mean Corpuscular Volume 95.1 fL (80.0-100.0); Mean Platelet Volume 10.8 fL (9.4-12.4); Platelet Count 143 K/uL (130-400); RDW Coefficient of Variation 14.1 % (11.5-14.5); RDW Standard Deviation 49.3 fL (36.4-46.3); Red Blood Count 4.52 M/uL (4.70-6.10); White Blood Count 10.68 K/ul (4.8-10.8)
[2024-11-27 09:39] LABS: BUN Creatinine Ratio 31.8 (10-20); Calcium 8.9 mg/dl (8.6-10.3); Creatinine Clr Calc Pharmacy 71.6 ml/min; Potassium 4.3 mmol/L (3.5-5.1)
[2024-11-27 10:24] LABS: Basophils # (auto) 0.01 K/uL (0.00-0.20); Basophils % (auto) 0.1 %; Immature Granulocytes # (auto) 0.07 K/uL (0.01-0.20); Immature Granulocytes % (auto) 0.7 %; Lymphocytes # (auto) 0.44 K/uL (1.20-3.40); Lymphocytes % (auto) 4.1 %; Monocytes # (auto) 0.25 K/uL (0.11-0.59); Monocytes % (auto) 2.3 %; Neutrophils # (auto) 9.91 K/uL (1.40-6.50); Neutrophils % (auto) 92.8 %
--- NOTE | 2024-11-27 12:37 | Hospitalist Progress Note ---
Date of Service November 27, 2024 Assessment & Plan (1) Generalized weakness: (2) Acute hypoxemic respiratory failure: (3) Influenza A: (4) COPD (chronic obstructive pulmonary disease): (5) Hypertension: (6) GERD (gastroesophageal reflux disease): Plan Primary service notes with addendum: Acute on chronic hypoxic respiratory failure, baseline 3 L O2 supplementation Influenza A COPD ZHANE on CPAP -Admit to med telemetry -Continue with supportive respiratory therapies including DuoNebs, Tamiflu, Tessalon Perle, Mucinex -Rib fractures noted on CXR involving left anterior 8, 9, 10, pain control with Tylenol, lidocain patch and tramadol may be used if needed for moderate to severe pain, splinting with cough, incentive spirometry, flutter, encourage deep breaths -Patient noted to be hypoxic with O2 sats 87% on arrival on 3 L, increased to 4 L, maintain O2 sats 88 to 92% - Ambulate with assistive device. PT/OT consults 11/26 Continue present regimen including nebs 4 times daily, Solu-Medrol, Tamiflu, doxycycline, etc. Continue Lidoderm patch, pain control Encouraged to use incentive spirometer more 11/27 Clinically improving overall Continue to wean off O2, on 3 L at baseline at home Continue Tamiflu, doxycycline, nebs, Solu-Medrol Encouraged to use incentive spirometry more frequently HTN -Continue home meds including losartan GERD -Continue omeprazole DVT ppx: teds, scds Lines: PIV x 1 FEN/GI: Heart healthy CODE: Full code Dispo: From home, likely to remain in the hospital x 1-2 days Admission and Anticipated Discharge Date Admission Date: November 25, 2024 Subjective Follow-up for flu, COPD exacerbation, etc. Seen resting in bedside chair, comfortable, not in distress On 5 L of O2 nasal cannula States he feels improved compared to yesterday Breathing is improving, still having some dry cough Denies rib pain No other new symptoms Review of Systems Review of Systems: all noted and negative except for above Physical Exam Physical Exam: General- oriented x 3, not in distress, speaks in sentences with no effort or accessory muscle use Eyes- anicteric Neck- no JVD Lungs- Faint intermittent rhonchi bilaterally, no wheezing Good air entry bilaterally Heart- normal rate, regular rhythm; no murmurs Abdomen- normal bowel sounds, nondistended, soft, nontender Extremities- no pretibial edema, no calf tenderness Neuro- alert, oriented x 3; no gross focal neurologic deficits Skin- warm & dry Results & Data Results & Data Vital Signs (Past 12 Hours) Vital Signs Temp Pulse Pulse Resp BP Pulse Ox O2 Del Method 11/27/24 12:26 36.5 C 85 20 154/76 H 95 Nasal Cannula 11/27/24 11:17 68 17 94 Nasal Cannula 11/27/24 09:29 Nasal Cannula 11/27/24 07:50 36.3 C L 56 L 20 141/70 H 94 BiPAP 11/27/24 07:35 60 19 95 CPAP 11/27/24 07:04 53 L 11/27/24 03:55 62 18 96 CPAP 11/27/24 03:50 62 15 96 11/27/24 03:37 36.4 C L 57 L 20 148/84 H 99 CPAP O2 Flow Rate 11/27/24 12:26 5 11/27/24 11:17 11/27/24 09:29 5 11/27/24 07:50 11/27/24 07:35 6 11/27/24 07:04 11/27/24 03:55 6 11/27/24 03:50 6 11/27/24 03:37 all noted and reviewed including below (4) COPD (chronic obstructive pulmonary disease) COPD type: emphysema Emphysema type: centrilobular Qualified Code(s): J43.2 - Centrilobular emphysema
[2024-11-27] MEDS: amLODIPine BESYLATE 5 MG TAB PO SCH (13:46)
[2024-11-28] MEDS ORDERED: ALBUT/IPRATROP 3MG/0.5MG NEB 3 ML VIAL NEB PRN (01:13)
[2024-11-28 06:47] LABS: Basophils # (auto) 0.01 K/uL (0.00-0.20); Basophils % (auto) 0.1 %; Eosinophils # (auto) 0.01 K/uL (0.00-0.50); Eosinophils % (auto) 0.1 %; Hematocrit (blood only) 42.4 % (42.0-52.0); Hemoglobin 14.5 g/dl (14.0-18.0); Immature Granulocytes # (auto) 0.05 K/uL (0.01-0.20); Immature Granulocytes % (auto) 0.6 %; Lymphocytes # (auto) 0.51 K/uL (1.20-3.40); Lymphocytes % (auto) 6.2 %; Mean Corpuscular Hemoglobin 32.7 pg (25.0-34.0); Mean Corpuscular Hgb Conc 34.2 g/dL (32.0-36.0); Mean Corpuscular Volume 95.5 fL (80.0-100.0); Mean Platelet Volume 11.6 fL (9.4-12.4); Monocytes # (auto) 0.29 K/uL (0.11-0.59); Monocytes % (auto) 3.5 %; Neutrophils # (auto) 7.31 K/uL (1.40-6.50); Neutrophils % (auto) 89.5 %; Platelet Count 137 K/uL (130-400); RDW Coefficient of Variation 13.9 % (11.5-14.5); RDW Standard Deviation 49.1 fL (36.4-46.3); Red Blood Count 4.44 M/uL (4.70-6.10); White Blood Count 8.18 K/ul (4.8-10.8)
[2024-11-28 06:57] LABS: Creatinine Clr Calc Pharmacy 68.4 ml/min; Potassium 4.7 mmol/L (3.5-5.1)
[2024-11-28] MEDS: ALBUT/IPRATROP 3MG/0.5MG NEB 3 ML VIAL NEB SCH (07:13)
[2024-11-28] MEDS: ACETAMINOPHEN 500 MG TAB PO SCH (15:59)
--- NOTE | 2024-11-28 17:26 | Hospitalist Progress Note ---
Date of Service November 28, 2024 Assessment & Plan (1) Generalized weakness: (2) Acute hypoxemic respiratory failure: (3) Influenza A: (4) COPD (chronic obstructive pulmonary disease): (5) Hypertension: (6) GERD (gastroesophageal reflux disease): Plan Primary service notes with addendum: Acute on chronic hypoxic respiratory failure, baseline 3 L O2 supplementation Influenza A COPD ZHANE on CPAP -Admit to med telemetry -Continue with supportive respiratory therapies including DuoNebs, Tamiflu, Tessalon Perle, Mucinex -Rib fractures noted on CXR involving left anterior 8, 9, 10, pain control with Tylenol, lidocain patch and tramadol may be used if needed for moderate to severe pain, splinting with cough, incentive spirometry, flutter, encourage deep breaths -Patient noted to be hypoxic with O2 sats 87% on arrival on 3 L, increased to 4 L, maintain O2 sats 88 to 92% - Ambulate with assistive device. PT/OT consults 11/26 Continue present regimen including nebs 4 times daily, Solu-Medrol, Tamiflu, doxycycline, etc. Continue Lidoderm patch, pain control Encouraged to use incentive spirometer more 11/27 Clinically improving overall Continue to wean off O2, on 3 L at baseline at home Continue Tamiflu, doxycycline, nebs, Solu-Medrol Encouraged to use incentive spirometry more frequently 11/28 Currently at baseline 3 L of O2 Change nebs to as needed Continue Tamiflu, doxycycline, prednisone For rib fracture pain, Tylenol 1 g every 8 hours, tramadol increase Encouraged to use incentive spirometry, patient agreed HTN -Continue home meds including losartan GERD -Continue omeprazole DVT ppx: teds, scds Lines: PIV x 1 FEN/GI: Heart healthy CODE: Full code Dispo: Hoping for discharge to home tomorrow Admission and Anticipated Discharge Date Admission Date: November 25, 2024 Subjective Follow-up for COPD exacerbation, influenza, etc. Seen sitting up in bed, not in distress, states he feels very tired because he was not able to sleep well last night, states he was always being awakened States breathing is improving, less cough Still having significant left rib pain, but no shortness of breath No other new symptoms Review of Systems Review of Systems: all noted and negative except for above Physical Exam Physical Exam: General- oriented x 3, not in distress, speaks in sentences with no effort or accessory muscle use Eyes- anicteric Neck- no JVD Lungs- clear breath sounds bilaterally, no crackles/wheezing Heart- normal rate, regular rhythm; no murmurs Abdomen- normal bowel sounds, nondistended, soft, nontender Extremities- no pretibial edema, no calf tenderness Neuro- alert, oriented x 3; no gross focal neurologic deficits Skin- warm & dry Results & Data Results & Data Vital Signs (Past 12 Hours) Vital Signs Temp Pulse Pulse Resp BP BP Pulse Ox 11/28/24 15:32 37.2 C 61 18 124/70 92 11/28/24 14:32 88 12 92 11/28/24 11:40 36.4 C L 59 L 18 151/76 H 94 11/28/24 10:47 60 16 94 11/28/24 07:55 36.1 C L 57 L 17 159/76 H 97 11/28/24 07:33 36.1 C L 57 L 17 159/76 H 97 11/28/24 07:29 11/28/24 07:13 55 L 18 96 11/28/24 07:13 42 L O2 Del Method O2 Flow Rate 11/28/24 15:32 Nasal Cannula 3 11/28/24 14:32 Nasal Cannula 2 11/28/24 11:40 Nasal Cannula 2 11/28/24 10:47 Nasal Cannula 3 11/28/24 07:55 Nasal Cannula 4 11/28/24 07:33 Nasal Cannula 4 11/28/24 07:29 Nasal Cannula 4 11/28/24 07:13 Nasal Cannula 3 11/28/24 07:13 all noted and reviewed including below (4) COPD (chronic obstructive pulmonary disease) COPD type: emphysema Emphysema type: centrilobular Qualified Code(s): J43.2 - Centrilobular emphysema
[2024-11-28] MEDS: traMADol HCL 50 MG TABLET PO PRN (21:15)
[2024-11-29 08:01] VITALS: BP 155/85; PULSE 90; RESP 16; TEMP 99.3
[2024-11-29 08:04] VITALS: O2SAT 92
[2024-11-29] MEDS: predniSONE 20 MG TAB PO SCH (08:08)
--- NOTE | 2024-11-29 11:32 | Discharge Summary ---
Discharge Summary Date of Service November 29, 2024 Principal Dx & Hospital Course #1 = Principal Diagnosis (1) Generalized weakness: (2) Acute hypoxemic respiratory failure: (3) Influenza A: (4) COPD (chronic obstructive pulmonary disease): (5) Hypertension: (6) GERD (gastroesophageal reflux disease): Plan Primary service notes with addendum: Acute on chronic hypoxic respiratory failure, baseline 3 L O2 supplementation Influenza A COPD ZHANE on CPAP -Admit to med telemetry -Continue with supportive respiratory therapies including DuoNebs, Tamiflu, Tessalon Perle, Mucinex -Rib fractures noted on CXR involving left anterior 8, 9, 10, pain control with Tylenol, lidocain patch and tramadol may be used if needed for moderate to severe pain, splinting with cough, incentive spirometry, flutter, encourage deep breaths -Patient noted to be hypoxic with O2 sats 87% on arrival on 3 L, increased to 4 L, maintain O2 sats 88 to 92% - Ambulate with assistive device. PT/OT consults 11/26 Continue present regimen including nebs 4 times daily, Solu-Medrol, Tamiflu, doxycycline, etc. Continue Lidoderm patch, pain control Encouraged to use incentive spirometer more 11/27 Clinically improving overall Continue to wean off O2, on 3 L at baseline at home Continue Tamiflu, doxycycline, nebs, Solu-Medrol Encouraged to use incentive spirometry more frequently 11/28 Currently at baseline 3 L of O2 Change nebs to as needed Continue Tamiflu, doxycycline, prednisone For rib fracture pain, Tylenol 1 g every 8 hours, tramadol increase Encouraged to use incentive spirometry, patient agreed HTN -Continue home meds including losartan GERD -Continue omeprazole DVT ppx: teds, scds Lines: PIV x 1 FEN/GI: Heart healthy CODE: Full code Dispo: Hoping for discharge to home tomorrow Admission HPI Per Admitting Provider This is an 84-year-old male with a PMHx of COPD, chronic respiratory failure with hypoxia, baseline O2 of 3 L, obstructive sleep apnea, HTN, GERD, lumbar degenerative disc disease, B12 deficiency overactive bladder, BPH who presents to the hospital with acute onset of weakness. He states that he has not been feeling well for about a month. Pt notes that about 1 month ago was seen by his PCP. He admits to having a granddaughter living with him and his at home who had a cold recently. He believes he caught it from her. Pt denies fever, chills, sweats, but is coughing quite a bit and feels pain in the left side of his chest. Pt notes that yesterday he fell twice at home. Denies hitting his head. He has a small injury on his left knee. Patient is found to be influenza A positive, O2 sats were diminished at 87% while on 3 L, he has been titrated up to 4 L and maintaining sats between 88 and 90%. Also noted on chest x-ray is left anterior rib fractures 8, 9, 10. He has been started on DuoNeb, doxycycline 100 mg IV, Tamiflu, and Solu-Medrol 125 mg IV, Tessalon Perle in the ER. Updated Medication List Medication Instructions Recorded Confirmed Type ascorbic acid (vitamin C) 500 mg 500 mg PO DAILY 06/14/19 11/25/24 History tablet losartan 25 mg tablet 25 mg PO QAM 06/14/19 11/25/24 History diclofenac sodium 1 % topical gel 2 gm topical QID PRN Pain 01/18/20 11/25/24 History omeprazole 20 mg capsule,delayed 20 mg PO DAILY 01/18/20 11/25/24 History release polyethylene glycol 3350 17 17 gm PO HS 01/18/20 11/25/24 History gram/dose oral powder (Miralax) potassium citrate 10 mEq (1,080 10 meq PO TID 01/18/20 11/25/24 History mg) tablet,extended release wheat dextrin 5 gram/7.4 gram oral 4 gm PO HS 01/18/20 11/25/24 History powder (Benefiber Healthy Shape) amlodipine 5 mg tablet 5 mg PO DAILY 06/21/22 11/25/24 History calcium 600 mg (as 1 cap PO DAILY 06/30/22 11/25/24 History carbonate)-vitamin D3 5 mcg (200 unit) capsule (Calcium 600 + D(3)) cyanocobalamin (vitamin B-12) 1,000 mcg PO DAILY 06/30/22 11/25/24 History 1,000 mcg tablet (Vitamin B-12) donepezil 10 mg tablet 10 mg PO HS 06/30/22 11/25/24 History fluoride (sodium) 1.1 % dental 1 applic PO DAILY 06/30/22 11/25/24 History paste Portable Oxygen #1 ea 07/15/22 04/12/24 Rx gabapentin 100 mg capsule 100 mg PO TID 07/25/22 11/25/24 History cholecalciferol (vitamin D3) 50 50 mcg PO DAILY 09/16/22 11/25/24 History mcg (2,000 unit) tablet (Vitamin D3) CPAP Supplies #1 ea 11/23/23 04/12/24 Rx finasteride 5 mg tablet 5 mg PO DAILY #90 tabs 05/17/24 11/25/24 Rx tamsulosin 0.4 mg capsule 0.4 mg PO DAILY #90 caps 05/17/24 11/25/24 Rx fluticasone fur. 100 mcg-umeclid 1 inh inhalation DAILY #3 Inhalers 10/27/24 11/25/24 Rx 62.5 mcg-vilant 25 mcg inhalat.powder (Trelegy Ellipta) mirtazapine 7.5 mg tablet 7.5 mg PO HS 11/25/24 11/25/24 History doxycycline hyclate 100 mg capsule 100 mg PO QAM 5 days #5 caps 11/29/24 Rx guaifenesin 600 mg tablet, 600 mg PO BID 5 days #0 tabs 11/29/24 11/25/24 Rx extended release 12 hr (Mucinex) oseltamivir 75 mg capsule 75 mg PO DAILY 1 day #2 caps 11/29/24 Rx prednisone 10 mg tablet 10 mg PO UD #16 tabs 11/29/24 Rx tramadol 50 mg tablet 50 mg PO Q8H PRN severe pain 11/29/24 Rx (scale score 7-10) #20 tabs Hospital Stay Data Consultations 11/25/24 13:50 ED Decision to Admit Stat Diagnostic Imagining Performed 11/25/24 10:25 CT abd pelvis IV con only Stat Pending Results Patient Have Any Pending Studies at Discharge: No Discharge Instructions Given to Patient (Per Discharging Provider) PLEASE REFER TO YOUR NEW MEDICATION LIST AND FOLLOW INSTRUCTIONS CAREFULLY. YOUR NEW MEDICATIONS INCLUDE: Doxycyline- antibiotic for acute bronchitis/COPD exacerbation Tamiflu- antiviral medicine for Influenza Prednisone taper- steroids for COPD exacerbation; take as follows 40mg x 1 day, then 30mg x 2 days, then 20mg x 2 days, then 10mg x 2 days, then STOP Mucinex- for cough Lidoderm patch- for rib pain, apply on painful area of the left ribs, over the counter Tramadol- every 8 hour as needed for pain Please continue using your incentive spirometry and flutter valve frequently at home for at least 1 week. PLEASE CALL YOUR PRIMARY CARE PHYSICIAN OR RETURN TO THE ER IF WITH WORSENING OF SYMPTOMS, INCLUDING cough, shortness of breath, rib pain, fever/chills, etc FOLLOW UP WITH PRIMARY CARE PHYSICIAN OUTLINED ABOVE.
== END 2024-11-29 15:02 | disposition home or self-care (01) | DRG 193 ==
LOC: ED 09:58 → SUATTDRO 15:13 → EDINP 15:13 → 2W 18:41

== ENCOUNTER 2025-01-03 13:37 | Inpatient (IN) ==
--- NOTE | 2025-01-03 14:11 | Electrocardiogram Report ---
Test Reason : Blood Pressure : */* mmHG Vent. Rate : 79 BPM Atrial Rate : 79 BPM P-R Int : 160 ms QRS Dur : 72 ms QT Int : 348 ms P-R-T Axes : 34 5 54 degrees QTcB Int : 399 ms Normal sinus rhythm Normal ECG When compared with ECG of 25-Nov-2024 10:31, No significant change was found Confirmed by Wolfgang Hamilton ([id number]) on 01/03/2025 2:08:46 PM Referred By: Confirmed By: Wolfgang Hamilton
[2025-01-03] MEDS: ACETAMINOPHEN 500 MG TAB PO STA (14:17)
[2025-01-03] MEDS: predniSONE 50 MG TAB PO STA (14:17)
--- NOTE | 2025-01-03 14:19 | XRay Report ---
XR chest 1V portable HISTORY: 84 years-old Male Sepsis COMPARISON: Chest and rib radiographs 11/25/2024 TECHNIQUE: AP view of the chest FINDINGS: Cardiac silhouette is enlarged. Emphysema with chronic interstitial coarsening. No pneumothorax or pl eural effusion. Patchy right midlung and right greater than left bibasilar opacities. Degenerative ch anges of the shoulders and spine. Calcified granulomas in the lingula again noted. IMPRESSION: 1. Right midlung and patchy right greater than left bibasilar opacities suggestive of pneumonia. 2. Severe emphysema. 3. Cardiomegaly without overt pulmonary edema. ACT 112: Negative or not required by law. The above report was generated using voice recognition software. It may contain grammatical, syntax o r spelling errors. Electronically signed by: Josue Al M.D. 01/03/2025 2:17 PM
[2025-01-03 14:23] LABS: Base Excess VBG 0.9 mEq/L; HCO3 VBG 25 mmol/L; Oxygen Saturation VBG 64.8 %; PCO2 VBG 39 mmHg (38-50); PO2 VBG 36 mmHg; pH VBG 7.42 (7.36-7.41)
[2025-01-03] MEDS: cefTRIAXone SODIUM 2,000 MG/50 ML BAG IV STA (14:31)
[2025-01-03] MEDS: AZITHROMYCIN 250 MG TAB PO ONE (14:31)
[2025-01-03 14:49] LABS: Hematocrit (blood only) 43.7 % (42.0-52.0); Hemoglobin 14.4 g/dl (14.0-18.0); Mean Corpuscular Hemoglobin 32.2 pg (25.0-34.0); Mean Corpuscular Volume 97.8 fL (80.0-100.0); Mean Platelet Volume 10.8 fL (9.4-12.4); Platelet Count 126 K/uL (130-400); RDW Coefficient of Variation 14.5 % (11.5-14.5); RDW Standard Deviation 52.2 fL (36.4-46.3); Red Blood Count 4.47 M/uL (4.70-6.10); White Blood Count 13.27 K/ul (4.8-10.8)
[2025-01-03 14:50] LABS: Basophils # (auto) 0.04 K/uL (0.00-0.20); Basophils % (auto) 0.3 %; Eosinophils # (auto) 0.01 K/uL (0.00-0.50); Eosinophils % (auto) 0.1 %; Immature Granulocytes # (auto) 0.13 K/uL (0.01-0.20); Lymphocytes % (auto) 3.8 %; Monocytes # (auto) 0.59 K/uL (0.11-0.59); Monocytes % (auto) 4.4 %; Neutrophils % (auto) 90.4 %
--- NOTE | 2025-01-03 14:51 | Emergency Department Note ---
History of Present Illness General Chief Complaint: Lethargic Time Seen by Provider: 01/03/25 13:48 History of Present Illness Provider Complaint: shortness of breath Onset (ago): day(s) (2) Consistency/Duration: + progressively worsening Relieved By: + nothing Exacerbated By: + exertion and + coughing Known history of: COPD Associated symptoms: + fever, + cough, + sputum production and + chest congestion; no hemoptysis Related Data Home oxygen amount: 2 liters Home Medications Medication Instructions Recorded Confirmed Type ascorbic acid (vitamin C) 500 mg 500 mg PO DAILY 06/14/19 01/03/25 History tablet losartan 25 mg tablet 25 mg PO QAM 06/14/19 01/03/25 History diclofenac sodium 1 % topical gel 2 gm topical QID PRN Pain 01/18/20 01/03/25 History omeprazole 20 mg capsule,delayed 20 mg PO DAILY 01/18/20 01/03/25 History release polyethylene glycol 3350 17 17 gm PO HS 01/18/20 01/03/25 History gram/dose oral powder (Miralax) potassium citrate 10 mEq (1,080 10 meq PO TID 01/18/20 01/03/25 History mg) tablet,extended release wheat dextrin 5 gram/7.4 gram oral 4 gm PO HS 01/18/20 01/03/25 History powder (Benefiber Healthy Shape) amlodipine 5 mg tablet 5 mg PO DAILY 06/21/22 01/03/25 History calcium 600 mg (as 1 cap PO DAILY 06/30/22 01/03/25 History carbonate)-vitamin D3 5 mcg (200 unit) capsule (Calcium 600 + D(3)) cyanocobalamin (vitamin B-12) 1,000 mcg PO DAILY 06/30/22 01/03/25 History 1,000 mcg tablet (Vitamin B-12) donepezil 10 mg tablet 10 mg PO HS 06/30/22 01/03/25 History fluoride (sodium) 1.1 % dental 1 applic PO DAILY 06/30/22 01/03/25 History paste Portable Oxygen #1 ea 07/15/22 01/03/25 Rx gabapentin 100 mg capsule 100 mg PO TID 07/25/22 01/03/25 History cholecalciferol (vitamin D3) 50 50 mcg PO DAILY 09/16/22 01/03/25 History mcg (2,000 unit) tablet (Vitamin D3) CPAP Supplies #1 ea 11/23/23 01/03/25 Rx finasteride 5 mg tablet 5 mg PO DAILY #90 tabs 05/17/24 01/03/25 Rx tamsulosin 0.4 mg capsule 0.4 mg PO DAILY #90 caps 05/17/24 01/03/25 Rx fluticasone fur. 100 mcg-umeclid 1 inh inhalation DAILY #3 Inhalers 10/27/24 01/03/25 Rx 62.5 mcg-vilant 25 mcg inhalat.powder (Trelegy Ellipta) mirtazapine 7.5 mg tablet 7.5 mg PO HS 11/25/24 01/03/25 History guaifenesin 600 mg tablet, 600 mg PO BID 5 days #0 tabs 11/29/24 01/03/25 Rx extended release 12 hr (Mucinex) tramadol 50 mg tablet 50 mg PO Q8H PRN severe pain 11/29/24 01/03/25 Rx (scale score 7-10) #20 tabs Allergies Allergy/AdvReac Type Severity Reaction Status Date / Time No Known Drug Allergies Allergy NKDA Verified 04/12/24 16:29 Past Med/Surg History Problem List Acute on chronic hypoxic respiratory failure Pneumonia (Acute) Influenza A (Acute) Multiple rib fractures (Acute) COPD (chronic obstructive pulmonary disease) (Acute) Acute hypoxemic respiratory failure (Acute) Influenza A Ground glass opacity present on imaging of lung Chest x-ray abnormality COPD exacerbation (Acute) Generalized weakness (Acute) Bilateral interstitial pneumonia (Acute) Falls (Acute) BPH with obstruction/lower urinary tract symptoms Multiple pulmonary nodules determined by computed tomography of lung Acute hypoxemic respiratory failure Hypoxia (Acute) Closed rib fracture (Acute) Mild cognitive impairment Rib fractures (Acute) Cerumen impaction Encounter for pre-operative examination Back pain (Chronic) COPD (chronic obstructive pulmonary disease) (Chronic) Kidney stones (Chronic) H/O diverticulitis of colon (Chronic) Osteoarthritis (Chronic) Osteoporosis (Chronic) GERD (gastroesophageal reflux disease) (Chronic) 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 INH USE - LONG TIME Sleep apnea CPAP Surgical History History of shoulder surgery Left History of foot surgery right foot - big toe - 10/14/2002 History of cholecystectomy History of herniorrhaphy History of surgery on wrist LEFT History of ankle surgery TITANIUM TO LEFT ANKLE History of lithotripsy History of colonoscopy Family History Mother Cancer Father , Spontaneous rupture of kidney Sudden Other No family history of allergies Social History Smoking Status: Former smoker Tobacco Type: Cigarettes Age Started Using Tobacco: 17; Age Quit Using Tobacco: 49; packs per day: 1; Second Hand Exposure: No; Do You Dip or Chew Tobacco: No; Tobacco Cessation Education Requested by Patient: No Hx Alcohol Use: No Hx Substance Use: No Preferred Language: Swiss Communication Ability: Effective Racecourse Barrier Attendant Required: No Beliefs That Will Affect Care: None marital status: Current Living Situation: Spouse Current Living Situation Comment: two story house with , grandson/gf and great grand child current occupational status: retired Other Information That Helps Us Care for You: No Feels Safe at Home: Yes Safety Concerns: Feels Safe At This Time Assistive Devices: Hearing Aid - Bilateral and Walker Physical Exam 2 Vital Signs: Vital Signs - 24 hr 01/03/25 13:45 01/03/25 14:15 01/03/25 14:18 Temperature 39.1 C H Temperature Source Oral Pulse Rate 77 90 Pulse Rate [Apical ] Pulse Rhythm Regular Pulse Strength Normal Pulse Strength [Ap ical] Respiratory Rate 20 Respiratory Effort / Characteristics SOB on Exertion Respiratory Depth Respiratory Patter n Regular Blood Pressure 132/65 Blood Pressure [Ri ght Arm] Blood Pressure Vika n 87 Blood Pressure Vika n [Right Arm] Pulse Oximetry 5 L 88 L Oxygen Delivery Me thod Oxymask Oxymask Oxygen Flow Rate Sepsis Recent Feve r Within 48 Hours Yes Sepsis New/Unexpla ined Change in Men janette Status Yes Sepsis Action Take n by Nursing Physician Notified Oxygen Flow Rate - Titration Pulse Oximetry Pos t Tiitration 01/03/25 14:35 01/03/25 14:50 01/03/25 14:51 Temperature Temperature Source Pulse Rate Pulse Rate [Apical ] 87 Pulse Rhythm Pulse Strength Pulse Strength [Ap ical] Normal Respiratory Rate 19 Respiratory Effort / Characteristics SOB on Exertion SOB on Exertion Respiratory Depth Normal Respiratory Patter n Regular Blood Pressure Blood Pressure [Ri ght Arm] 120/63 Blood Pressure Vika n Blood Pressure Vika n [Right Arm] 82 Pulse Oximetry 88 L 86 L 90 Oxygen Delivery Me thod Oxymask Oxymask Non-rebrea ther Non-rebreather Oxygen Flow Rate 5 5 7 Sepsis Recent Feve r Within 48 Hours Sepsis New/Unexpla ined Change in Men janette Status Sepsis Action Take n by Nursing Oxygen Flow Rate - Titration 7 Pulse Oximetry Pos t Tiitration 90 Physical Exam: Physical Exam HENT: Exam performed. - Head: Normocephalic and atraumatic. EYES: Conjunctivae and EOM are normal. Right eye exhibits no discharge. Left eye exhibits no discharge. No scleral icterus. NECK: Normal range of motion. Neck supple. No JVD present. CV: Normal rate, regular rhythm, normal heart sounds and intact distal pulses. There is no peripheral edema. Palpable radial pulses bue. PULM/CHEST: Rhonchi bilaterally. ABD: The abdomen is soft. There is no tenderness. NEURO: Motor and sensation grossly intact. Course Course 1348: The patient was evaluated in room A10. A complete history and physical exam was performed Cardiac monitoring: An order was placed for continuous cardiac monitoring. The monitor shows a rate of 80 with sinus rhythm interpreted by me Patient was found to have oxygen saturation of 83 to 86% on his normal 2 L nasal cannula. Oxygen was titrated to improve the patient's oxygen saturation to 88 to 92%. 1502: Vital signs stable on supplemental oxygen. Imaging shows a right-sided pneumonia. Labs are normal lactic acid white blood cell count 13 procalcitonin mildly elevated. Patient was treated with prednisone, azithromycin, and Rocephin. Patient will be admitted to the [facility] team. Administered Medications Guaifenesin (Guaifenesin 600 Mg Tabcr) 1,200 mg PO Q12 SHE Stop: 02/02/25 16:29 Last Admin: 01/03/25 16:32 Dose: 1,200 mg Documented By: WALE Sodium Chloride (Nss) 500 mls @ 80 mls/hr IV .[id number] SHE Stop: 01/03/25 22:59 Last Admin: 01/03/25 17:01 Dose: 80 mls/hr Documented By: WALE Discontinued Medications Acetaminophen (Acetaminophen 500 Mg Tab) 1,000 mg PO NOW STA Stop: 01/03/25 14:10 Last Admin: 01/03/25 14:17 Dose: 1,000 mg Documented By: BROOKE Azithromycin (Azithromycin 250 Mg Tab) 500 mg PO NOW ONE Stop: 01/03/25 14:10 Last Admin: 01/03/25 14:31 Dose: 500 mg Documented By: BROOKE Guaifenesin (Guaifenesin 600 Mg Tabcr) 600 mg PO Q12 SHE Stop: 02/02/25 15:44 Last Admin: 01/03/25 16:49 Dose: Not Given Documented By: WALE Ceftriaxone Sodium (Rocephin) 2,000 mg in 50 mls @ 100 mls/hr IV NOW STA Stop: 01/03/25 14:49 Last Infusion: 01/03/25 16:38 Dose: Infused Documented By: Admin: 01/03/25 14:31 Dose: 100 mls/hr Documented By: BROOKE Vancomycin HCl 1,500 mg/ (Sodium Chloride) 530 mls @ 200 mls/hr IV NOW STA Stop: 01/03/25 19:23 Last Admin: 01/03/25 17:50 Dose: 200 mls/hr Documented By: WALE Prednisone (Prednisone 50 Mg Tab) 50 mg PO NOW STA Stop: 01/03/25 14:10 Last Admin: 01/03/25 14:17 Dose: 50 mg Documented By: BROOKE Medical Decision Making Laboratory Data Attestation: I reviewed the patient's lab results. 01/03/25 14:09 01/03/25 14:09 Lab Results 01/03/25 01/03/25 01/03/25 Range/Units 14:06 14:09 15:35 WBC 13.27 H (4.8-10.8) K/ul RBC 4.47 L (4.70-6.10) M/uL Hgb 14.4 (14.0-18.0) g/dl Hct 43.7 (42.0-52.0) % MCV 97.8 (80.0-100.0) fL MCH 32.2 (25.0-34.0) pg MCHC 33.0 (32.0-36.0) g/dL RDW Std Deviation 52.2 H (36.4-46.3) fL RDW Coeff of [place] 14.5 (11.5-14.5) % Plt Count 126 L (130-400) K/uL MPV 10.8 (9.4-12.4) fL Immature Gran % (Auto) 1.0 % Neut % (Auto) 90.4 % Lymph % (Auto) 3.8 % [place] % (Auto) 4.4 % Eos % (Auto) 0.1 % Baso % (Auto) 0.3 % Neut # (Auto) 12.00 H (1.40-6.50) K/uL Lymph # (Auto) 0.50 L (1.20-3.40) K/uL [place] # (Auto) 0.59 (0.11-0.59) K/uL Eos # (Auto) 0.01 (0.00-0.50) K/uL Baso # (Auto) 0.04 (0.00-0.20) K/uL Immature Gran # (Auto) 0.13 (0.01-0.20) K/uL PT 12.0 (9.0-12.0) Seconds INR 1.1 (0.9-1.1) APTT 27 (21-31) Seconds PTT Ratio 1.0 VBG pH 7.42 H (7.36-7.41) VBG pCO2 39 (38-50) mmHg VBG pO2 36 mmHg VBG HCO3 25 mmol/L VBG O2 Saturation 64.8 % VBG Base Excess 0.9 mEq/L Sodium 141 (136-145) mmol/L Potassium 4.3 (3.5-5.1) mmol/L Chloride 109 H (98-107) mmol/L Carbon Dioxide 26 (21-32) mmol/L Anion Gap 6 (3-11) BUN 20 (6-23) mg/dl Creatinine 1.04 (0.6-1.4) mg/dl Est Cr Clr Drug Dosing 51.9 ml/min eGFR 70.37 BUN/Creatinine Ratio 19.2 (10-20) Glucose 131 H (70-99(Fasting)) mg/dl Lactate 1.6 (0.4-2.0) mmol/L Calcium 9.0 (8.6-10.3) mg/dl Magnesium 1.8 (1.7-2.4) mg/dl Total Bilirubin 2.3 H (0.2-1.0) mg/dl Direct Bilirubin 0.4 H (0-0.2) mg/dl AST 14 (13-39) U/L ALT 10 (7-52) U/L Alkaline Phosphatase 75 (34-104) U/L Troponin I High Sens 54.2 H* (0-20) pg/ml Total Protein 6.7 (6.0-8.3) gm/dl Albumin 3.6 (3.4-5.0) gm/dl Procalcitonin 0.90 H (0-0.5) ng/ml Nasal Screen MRSA (PCR) Negative (Negative) Imaging Data Attestation: I personally reviewed and interpreted this imaging study as follows: My Impression: Chest x-ray: Right lower lobe infiltrate Radiologist's Impression: Chest X-Ray 01/03/25 13:55 XR chest 1V portable HISTORY: 84 years-old Male Sepsis COMPARISON: Chest and rib radiographs 11/25/2024 TECHNIQUE: AP view of the chest FINDINGS: Cardiac silhouette is enlarged. Emphysema with chronic interstitial coarsening. No pneumothorax or pleural effusion. Patchy right midlung and right greater than left bibasilar opacities. Degenerative changes of the shoulders and spine. Calcified granulomas in the lingula again noted. IMPRESSION: 1. Right midlung and patchy right greater than left bibasilar opacities suggestive of pneumonia. 2. Severe emphysema. 3. Cardiomegaly without overt pulmonary edema. ACT 112: Negative or not required by law. The above report was generated using voice recognition software. It may contain grammatical, syntax or spelling errors. Electronically signed by: Josue Al M.D. 01/03/2025 2:17 PM ECG Data Attestation: I personally reviewed and interpreted this ECG as follows: Interpretation: Sinus rhythm with rate of 79. MS 160 QRS [address] elevation or ST depression. [facility] Narrative 1348: The patient was evaluated in room A10. A complete history and physical exam was performed Cardiac monitoring: An order was placed for continuous cardiac monitoring. The monitor shows a rate of 80 with sinus rhythm interpreted by me Patient was found to have oxygen saturation of 83 to 86% on his normal 2 L nasal cannula. Oxygen was titrated to improve the patient's oxygen saturation to 88 to 92%. 1502: Vital signs stable on supplemental oxygen. Imaging shows a right-sided pneumonia. Labs are normal lactic acid white blood cell count 13 procalcitonin mildly elevated. Patient was treated with prednisone, azithromycin, and Rocephin. Patient will be admitted to the [facility] team. Impression & Plan Hypoxia, COPD exacerbation, Pneumonia Critical Care Time Critical Care Time: Yes Total Critical Care Time: 58 I have personally spent greater than 58 minutes of critical care time in the direct management of this patient. This includes bedside care, interpretation of diagnostic studies, and testing, discussion with consultants, patient, and family members, and other required patient management activities. This 58 minutes is in excess of all separately billable procedures. Discharge Plan Visit Data Chief Complaint: Lethargic ED Provider: Richard Hays Discharge Problem: Hypoxia, COPD exacerbation, Pneumonia Patient Disposition: Admitted As Inpatient Discharge Instructions Interventions: ED Discharge Assessment Last Done: 01/03/25 17:57 Discharge Problem: Pneumonia Qualifiers: Pneumonia type: due to unspecified organism Laterality: right Lung location: u nspecified part of lung Qualified Code(s): J18.9 - Pneumonia, unspecified organism
[2025-01-03 14:52] LABS: Albumin Level 3.6 gm/dl (3.4-5.0); BUN Creatinine Ratio 19.2 (10-20); Bilirubin Direct 0.4 mg/dl (0-0.2); Bilirubin,Total 2.3 mg/dl (0.2-1.0); Creatinine Clr Calc Pharmacy 51.9 ml/min; Magnesium 1.8 mg/dl (1.7-2.4); Potassium 4.3 mmol/L (3.5-5.1); Total Protein 6.7 gm/dl (6.0-8.3)
[2025-01-03 14:57] LABS: INR 1.1 (0.9-1.1); Partial Thromboplastin Time 27 Seconds (21-31)
[2025-01-03 15:01] LABS: Troponin I High Sensitivity 54.2 pg/ml (0-20)
--- NOTE | 2025-01-03 15:19 | History & Physical Report ---
Date of Service January 03, 2025 Assessment & Plan (1) Acute on chronic hypoxic respiratory failure: (2) Pneumonia: (3) COPD (chronic obstructive pulmonary disease): (4) Emphysema lung: (5) Hypertension: (6) BPH with obstruction/lower urinary tract symptoms: (7) Mild cognitive impairment: (8) ZHANE (obstructive sleep apnea): Plan This is an 84yo M with PMH of PMH of COPD, chronic respiratory failure with hypoxia on baseline O2 of 2 L, obstructive sleep apnea, HTN, GERD, lumbar degenerative disc disease, B12 deficiency, overactive bladder, BPH, mild cognitive impairment who presents to the hospital with fever and cough for past few days and was found to have acute on chronic hypoxic resp failure in setting of PNA. Sepsis Acute on chronic hypoxic respiratory failure T: 39 C, WBC 13.27, procal 0.90 with PNA meeting sepsis criteria CXR right midlung and patchy right greater than left bibasilar opacities suggestive of pneumonia. Severe emphysema. Cardiomegaly without overt pulmonary edema Given Rocephin and Azithromycin in ED Giving 1 time dose of Vancomycin given recent admission for influenza A, MRSA swab pending Resp viral panel negative Continue Mucinex, incentive spirometry, flutter valve Currently saturating 93% on 7 L non-rebreather Wean O2 back to baseline 3L as tolerated COPD Not wheezing on exam, so prednisone not indicated to continue at this time Continue Oxygen, and Trelegy Recent fall with multiple L sided rib fractures Healing, pain controlled with PRN Tramadol and Tylenol, lidocaine patch, Voltaren gel HTN Continue Losartan and Amlodipine MCI (mild cognitive impairment) Continue Donepezil Aortic mural thrombus Noted on CT during November admission. Not an indication for anticoagulation BPH Continue Tamsulosin and Finasteride ZHANE CPAP HS with O2 bled through DVT Ppx: SQ heparin Code status: FULL PCP: Raghu Dispo: admitting to PCU Patient seen in collaboration with Dr. Vidal. Please see addendum. I spent a total of 75 minutes coordinating, documenting, and providing care for this patient excluding time spent in the performance of separately billed services or time spent by another provider/QHP. History of Present Illness Chief Complaint: cough, fever Primary Care Provider: Teofilo Krishnamurthy, DO This is an 84yo M with PMH of PMH of COPD, chronic respiratory failure with hypoxia on baseline O2 of 3 L, obstructive sleep apnea, HTN, GERD, lumbar degenerative disc disease, B12 deficiency, overactive bladder, BPH, mild cognitive impairment who presents to the hospital with fever and cough for past few days. Was admitted to our service for acute on chronic hypoxia in setting of Flu A, COPD. He had a fall preceding last admission and fractured multiple left sided ribs. Rib fracture pain is being treated with tramadol, lidocaine patch and Tylenol. 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 Was discharged home on remainder of doxycycline course, Tamiflu, prednisone taper. Seen by Dr. Krishnamurthy in follow up on 12/12 and referred to outpatient PT. Has been feeling more weak for past few days. noted his oxygen levels were low despite his baseline 3L and he wasn't able to ambulate, so brought him to ED for further evaluation. Feeling congested but no more of a cough than usual. Has been taking mucinex twice a day. No CP, SOB, N/V, abd pain, dysuria, diarrhea or constipation. Does not use his walker in the house but does when out ambulating. Allergies Allergy/AdvReac Type Severity Reaction Status Date / Time No Known Drug Allergies Allergy NKDA Verified 04/12/24 16:29 Home Medications Medication Instructions Recorded Confirmed Type ascorbic acid (vitamin C) 500 mg 500 mg PO DAILY 06/14/19 01/03/25 History tablet losartan 25 mg tablet 25 mg PO QAM 06/14/19 01/03/25 History diclofenac sodium 1 % topical gel 2 gm topical QID PRN Pain 01/18/20 01/03/25 History omeprazole 20 mg capsule,delayed 20 mg PO DAILY 01/18/20 01/03/25 History release polyethylene glycol 3350 17 17 gm PO HS 01/18/20 01/03/25 History gram/dose oral powder (Miralax) potassium citrate 10 mEq (1,080 10 meq PO TID 01/18/20 01/03/25 History mg) tablet,extended release wheat dextrin 5 gram/7.4 gram oral 4 gm PO HS 01/18/20 01/03/25 History powder (Benefiber Healthy Shape) amlodipine 5 mg tablet 5 mg PO DAILY 06/21/22 01/03/25 History calcium 600 mg (as 1 cap PO DAILY 06/30/22 01/03/25 History carbonate)-vitamin D3 5 mcg (200 unit) capsule (Calcium 600 + D(3)) cyanocobalamin (vitamin B-12) 1,000 mcg PO DAILY 06/30/22 01/03/25 History 1,000 mcg tablet (Vitamin B-12) donepezil 10 mg tablet 10 mg PO HS 06/30/22 01/03/25 History fluoride (sodium) 1.1 % dental 1 applic PO DAILY 06/30/22 01/03/25 History paste Portable Oxygen #1 ea 07/15/22 01/03/25 Rx gabapentin 100 mg capsule 100 mg PO TID 07/25/22 01/03/25 History cholecalciferol (vitamin D3) 50 50 mcg PO DAILY 09/16/22 01/03/25 History mcg (2,000 unit) tablet (Vitamin D3) CPAP Supplies #1 ea 11/23/23 01/03/25 Rx finasteride 5 mg tablet 5 mg PO DAILY #90 tabs 05/17/24 01/03/25 Rx tamsulosin 0.4 mg capsule 0.4 mg PO DAILY #90 caps 05/17/24 01/03/25 Rx fluticasone fur. 100 mcg-umeclid 1 inh inhalation DAILY #3 Inhalers 10/27/24 01/03/25 Rx 62.5 mcg-vilant 25 mcg inhalat.powder (Trelegy Ellipta) mirtazapine 7.5 mg tablet 7.5 mg PO HS 11/25/24 01/03/25 History guaifenesin 600 mg tablet, 600 mg PO BID 5 days #0 tabs 11/29/24 01/03/25 Rx extended release 12 hr (Mucinex) tramadol 50 mg tablet 50 mg PO Q8H PRN severe pain 11/29/24 01/03/25 Rx (scale score 7-10) #20 tabs Past Med/Surg History Problem List Acute on chronic hypoxic respiratory failure Pneumonia (Acute) Influenza A (Acute) Multiple rib fractures (Acute) COPD (chronic obstructive pulmonary disease) (Acute) Acute hypoxemic respiratory failure (Acute) Influenza A Ground glass opacity present on imaging of lung Chest x-ray abnormality COPD exacerbation (Acute) Generalized weakness (Acute) Bilateral interstitial pneumonia (Acute) Falls (Acute) BPH with obstruction/lower urinary tract symptoms Multiple pulmonary nodules determined by computed tomography of lung Acute hypoxemic respiratory failure Hypoxia (Acute) Closed rib fracture (Acute) Mild cognitive impairment Rib fractures (Acute) Cerumen impaction Encounter for pre-operative examination Back pain (Chronic) COPD (chronic obstructive pulmonary disease) (Chronic) Kidney stones (Chronic) H/O diverticulitis of colon (Chronic) Osteoarthritis (Chronic) Osteoporosis (Chronic) GERD (gastroesophageal reflux disease) (Chronic) 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 INH USE - LONG TIME Sleep apnea CPAP Surgical History History of shoulder surgery Left History of foot surgery right foot - big toe - 10/14/2002 History of cholecystectomy History of herniorrhaphy History of surgery on wrist LEFT History of ankle surgery TITANIUM TO LEFT ANKLE History of lithotripsy History of colonoscopy Family History Mother Cancer Father , Spontaneous rupture of kidney Sudden Other No family history of allergies Social History Smoking Status: Former smoker Tobacco Type: Cigarettes Age Started Using Tobacco: 17; Age Quit Using Tobacco: 49; packs per day: 1; Second Hand Exposure: No; Do You Dip or Chew Tobacco: No; Hx Alcohol Use: No Hx Substance Use: No Preferred Language: Croatian Communication Ability: Effective Fiber Machine Tender Required: No Beliefs That Will Affect Care: None marital status: Current Living Situation: Spouse Current Living Situation Comment: two story house with , grandson/gf and great grand child current occupational status: retired Feels Safe at Home: Yes Assistive Devices: Hearing Aid - Bilateral and Walker Review of Systems Review of Systems: At least ten systems reviewed and negative except as noted in the HPI. Physical Exam Physical Exam: Please see Dr. Vidal' addendum for physical exam. Results & Data Results & Data Vital Signs (Past 12 Hours) Vital Signs Temp Pulse Pulse Resp BP BP Pulse Ox 01/03/25 14:51 90 01/03/25 14:50 86 L 01/03/25 14:35 87 19 120/63 88 L 01/03/25 14:18 90 01/03/25 14:15 88 L 01/03/25 13:45 39.1 C H 77 20 132/65 5 L O2 Del Method O2 Flow Rate 01/03/25 14:51 Non-rebreather 7 01/03/25 14:50 Oxymask, Non-rebreather 5 01/03/25 14:35 Oxymask 5 01/03/25 14:18 01/03/25 14:15 Oxymask 01/03/25 13:45 Oxymask Laboratory Results Short CBC 01/03/25 Range/Units 14:09 WBC 13.27 H (4.8-10.8) K/ul Hgb 14.4 (14.0-18.0) g/dl Hct 43.7 (42.0-52.0) % Plt Count 126 L (130-400) K/uL BMP 01/03/25 14:09 Sodium 141 Potassium 4.3 Chloride 109 H Carbon Dioxide 26 BUN 20 Creatinine 1.04 Glucose 131 H Calcium 9.0 Liver Function 01/03/25 Range/Units 14:09 Total Bilirubin 2.3 H (0.2-1.0) mg/dl Direct Bilirubin 0.4 H (0-0.2) mg/dl AST 14 (13-39) U/L ALT 10 (7-52) U/L Alkaline Phosphatase 75 (34-104) U/L Albumin 3.6 (3.4-5.0) gm/dl Diagnostic Findings Chest X-Ray 01/03/25 13:55 XR chest 1V portable HISTORY: 84 years-old Male Sepsis COMPARISON: Chest and rib radiographs 11/25/2024 TECHNIQUE: AP view of the chest FINDINGS: Cardiac silhouette is enlarged. Emphysema with chronic interstitial coarsening. No pneumothorax or pleural effusion. Patchy right midlung and right greater than left bibasilar opacities. Degenerative changes of the shoulders and spine. Calcified granulomas in the lingula again noted. IMPRESSION: 1. Right midlung and patchy right greater than left bibasilar opacities suggestive of pneumonia. 2. Severe emphysema. 3. Cardiomegaly without overt pulmonary edema. ACT 112: Negative or not required by law. The above report was generated using voice recognition software. It may contain grammatical, syntax or spelling errors. Electronically signed by: Josue Al M.D. 01/03/2025 2:17 PM Supervising Physician Co-Signing Physician Notes I have seen and discussed the case with the collaborating advanced practitioner. I agree with the above H&P. I have reviewed and confirmed the patients medical history, the findings on physical examination, and the patients diagnosis and treatment plan with Stefan DEY and agree with the information documented. Mr. 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 Patient was admitted to [facility] from 11/25/2024-11/29/2024 after falling and admitted for acute on chronic respiratory failure due to Influenza A, and generalized weakness. He sustained fractured left ribs 8-10 from fall. Patient difficult to gather history from--reporting a couple days of weakness and subjective fever, but no other clear complaints to include no sob/mathews chest pain, cough. GENERAL APPEARANCE: AxOx4, fatigued appearing gentleman no acute distress. HEENT: NC, AT. MMM. EOMI, clear conjunctiva, oropharynx clear. NECK: Supple without lymphadenopathy. No stiffness or restricted ROM. HEART: Normal rate and regular rhythm, normal S1/S1, no m/r/g LUNGS: rhonchi bilaterally ABDOMEN: Soft, nontender, nondistended with good bowel sounds heard. BACK: No CVAT, no obvious deformity. EXTREMITIES: Without cyanosis, clubbing or edema. NEUROLOGICAL: Grossly nonfocal. Alert and oriented, moving all 4 extremities. CN not formally tested but appear grossly intact Skin: Warm and sweaty #Sepsis iso suspected CAP #Acute on chronic hypoxic resp failure fever,tachypnea, WBC CXR with opacities, no other clear source at this time MRSA negative, procal 0.9 discontinue van continue cap coverage with abx pulm toilet encouraged PT/OT sputum and UA cultures ordered BNP ordered #Elevated troponin, suspected demand iso hypoxia wean oxygen as able no signs of active acs at this time trend trop to peak monitor on tele rest of plan as above I spent a total of 25 minutes coordinating, documenting, and providing care for this patient excluding time spent in the performance of separately billed services. All of the aforementioned completed outside of collaborating with the assigned advanced practitioner for a full treatment plan. I have reviewed the advanced practitioner's documentation, and I agree with, and take responsibility for the plan of care (2) Pneumonia Laterality: right Lung location: unspecified part of lung Pneumonia type: due to unspecified organism Qualified Code(s): J18.9 - Pneumonia, unspecified organism (3) COPD (chronic obstructive pulmonary disease) COPD type: unspecified COPD Qualified Code(s): J44.9 - Chronic obstructive pulmonary disease, unspecified
[2025-01-03 15:28] LABS: Adenovirus PCR Not Detected (NotDetected); Bordetella parapertussis PCR Not Detected (NotDetected); Bordetella pertussis PCR Not Detected (NotDetected); Chlamydia pneumoniae PCR Not Detected (NotDetected); Coronavirus 229E PCR Not Detected (NotDetected); Coronavirus CoV-2 (COVID19)PCR Not Detected (NotDetected); Coronavirus HKU1 PCR Not Detected (NotDetected); Coronavirus NL63 PCR Not Detected (NotDetected); Coronavirus OC43PCR Not Detected (NotDetected); Human Metapneumovirus PCR Not Detected (NotDetected); Influenza A PCR Not Detected (NotDetected); Influenza B PCR Not Detected (NotDetected); Mycoplasma pneumoniae PCR Not Detected (NotDetected); Parainfluenza Virus 1 PCR Not Detected (NotDetected); Parainfluenza Virus 2 PCR Not Detected (NotDetected); Parainfluenza Virus 3 PCR Not Detected (NotDetected); Parainfluenza Virus 4 PCR Not Detected (NotDetected); Respiratory Syncytial VirusPCR Not Detected (NotDetected); Rhinovirus/Enterovirus PCR Not Detected (NotDetected)
[2025-01-03] MEDS: guaiFENesin 600 MG TABCR PO SCH ×2 (16:32→16:49)
[2025-01-03] MEDS ORDERED: VANCOMYCIN CONSULT ACTIVE PRN (16:38)
[2025-01-03] MEDS: SODIUM CHLORIDE 0.9% 500 ML IV SCH (17:01)
[2025-01-03] MEDS: VANCOMYCIN HCL 1,500 MG in SODIUM CHLORIDE 0.9% 500 ML IV STA (17:50)
[2025-01-03] MEDS ORDERED: ALBUT/IPRATROP 3MG/0.5MG NEB 3 ML VIAL NEB PRN (17:54)
[2025-01-03] MEDS: GABAPENTIN 100 MG CAP PO SCH (20:50)
[2025-01-03] MEDS: MIRTAZAPINE TAB 15 MG TAB PO SCH (20:52)
[2025-01-03] MEDS: DONEPEZIL HCL 10 MG TAB PO SCH (20:53)
[2025-01-03] MEDS: POLYETHYLENE (MIRALAX) 17 GM PACK PO SCH (21:04)
[2025-01-03] MEDS: POTASSIUM CITRATE 10 MEQ TAB PO SCH (21:05)
--- OUTSIDE RECORDS SUMMARY | 2025-01-03 23:46 | External Medical Summary | Summary of Care ---
Author Name Unknown Organization [facility] Address [address] [place] [address] Phone [phone] Care Team Providers Care Generating Plant Superintendent Name Role Phone Dayana Krishnamurthy DO Primary Care Provider [phone] Reason for Visit * Reason Comments Medication Refill Encounter Details Date Type Department Care Team (Late st Contact Info) Description 12/18/2024 Refill Family Practice [address] [place] [phone] Cindy Bruce DO [address] [place] [address] Calculus of kidney Allergies No known active allergiesdocumented as of this encounter (statuses as of 12/18/2024) Medications Polyethylene Glycol 3350 17 GM/SCOOP Oral Powder Take 17 g by mouth every evening. Dissolve one heaping tablespoon in 8 ounces of water or juice. 1 Bottle 2 01/27/20 18 Active Wheat Dextrin (BENEFIBER) powder Take by mouth every evening. 01/27/20 18 Active Cyanocobalamin (VITAMIN B-12) 1000 [...] Tablet Chewable Take 1 Tablet by mouth every evening. Active oxygen IN GASIndications:BEHAVIORAL HEALTH RN D, group B, by GOLD 2017 classification (HCC) Administer into nostril 3 L/min(Oxygen) continuous . 1 Each 07/04/20 22 Active Vitamin D3 50 MCG (2000 UT) Oral Capsule Take 1 Capsule by mouth in the morning. 30 Capsule 5 08/14/20 22 Active Calcium Citrate Plus Oral Tablet Take 1 Tablet by mouth in the morning. Active Omeprazole 20 MG Oral Capsule Delayed Release (PriLOSEC) TAKE ONE CAPSULE BY MOUTH EVERY DAY 100 Capsule 3 4 7:06 AM EST 11/26/19 24 025 Active amLODIPine Besylate 5 MG Oral Tablet (Norvasc)Indicatio ns:HTN, goal below 150/90 take 1 tablet by mouth every morning 90 Tablet 3 11/29/19 24 Active Finasteride 5 MG Oral Tablet (Proscar) Take one tablet by mouth every day 90 Tablet 3 5 7:43 AM EST 05/17/20 24 Active Tamsulosin HCl 0.4 MG Oral Capsule (Flomax) Take one capsule by mouth every day 90 Capsule 3 4 11:37 AM EST 05/17/20 24 Active Gabapentin 100 MG Oral Capsule (Neurontin)Indicat ions:Lumbar degenerative disc disease TAKE 1 CAPSULE BY MOUTH IN THE MORNING AND 1 CAPSULE BY MOUTH AT NOON AND 1 CAPSULE BY MOUTH BEFORE BEDTIME 90 Capsule 5 06/26/20 24 Active Classics Rolling WalkerIndications: Generalized osteoarthritis,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 Light, seat with brakes. 1 Each 07/24/20 24 Active Losartan Potassium 25 MG Oral Tablet (Cozaar)Indication s:HTN, goal below 150/90 TAKE ONE TABLET BY MOUTH IN THE MORNING 100 Tablet 1 5 11:54 AM EST 08/01/20 24 Active Donepezil HCl 10 MG Oral Tablet (Aricept)Indicatio ns:MCI (mild cognitive impairment) TAKE ONE TABLET BY MOUTH BEFORE BEDTIME WITH LARGEST MEAL OF THE DAY 100 Tablet 3 5 6:03 PM EST 08/29/20 24 025 Active Mirtazapine 7.5 MG Oral Tablet (Remeron)Indicatio ns:PAUL (generalized anxiety disorder) TAKE 1 TABLET BY MOUTH AT BEDTIME 90 Tablet 1 09/24/20 24 Active Trelegy Ellipta 100-62.5-25 MCG/ACT Aerosol Powder Breath Activated (Fluticasone-Umecl idinium-Vilanterol ) Inhale 1 Puff by mouth daily 180 Each 5 5:50 PM EST 10/27/19 25 Active guaiFENesin ER 600 MG Oral Tablet Extended Release 12 Hour (Mucinex) Take 1 Tablet by mouth in the morning and 1 Tablet before bedtime. X 5 days. Active Lidocaine 4 % External Patch (Aspercreme) Place 1 Patch topically on the skin daily. As needed for rib pain Active traMADol HCl 50 MG Oral Tablet (Ultram)Indication s:Generalized osteoarthritis Take 1 Tablet by mouth 2 times a day as needed for Pain, Severe. 60 Tablet 12/16/19 25 Active Potassium Citrate ER 10 MEQ (1080 MG) Oral Tablet Extended Release (Urocit-K)Indicati ons:Calculus of kidney TAKE ONE TABLET BY MOUTH THREE TIMES A DAY 300 Tablet 3 12/19/19 25 026 Active Potassium Citrate ER 10 MEQ (1080 MG) Oral Tablet Extended Release (Urocit-K)Indicati ons:Calculus of kidney TAKE ONE TABLET BY MOUTH THREE TIMES A DAY 300 Tablet 3 4 10:25 AM EST 11/20/19 24 025 Discontin ued(Refil l) documented as of this encounter (statuses as of 12/18/2024) Active Problems Problem Noted Date Diagnosed Date Aortic mural thrombus 12/12/2024 Senile osteoporosis 11/14/2024 Other atherosclerosis of donnie [...] as of this encounter (statuses as of 12/18/2024) Resolved Problems Problem Noted Date Diagnosed Date [...] as of this encounter (statuses as of 12/18/2024) Immunizations Name Administration Dates Next Due COVID-19 mRNA, LNP-s, No Pre serve, 2-Dose Series ([employer] d/b/a [employer]) 08/14/2021,12/11/2020,11/13/2020 COVID-19, LNP-s, No Preserve , Neal-sucrose, Ages 12+ (Danal d/b/a [employer]) 04/22/2022 COVID-19, MRNA-LNP, PF, 30 M CG/0.3 mL, 12 YRS AND ABOVE, [facility] 07/12/2024 Covid-19, Mrna, Lnp-s, Pf, B ivalent, 30 Mcg, IM, 12 yrs and above (Danal d/b/a [employer]) 10/07/2022 Pneumococcal Conjugate Vacc, 13 Valent (Prevnar) 01/31/2015 Pneumococcal Conjugate Vacci ne, 20-valent ([id number]) 07/12/2024 RSV Vac., Bivalent, Perfusio n F, [...] Answer Date Recorded PHQ Adult Total Score 0 12/12/2024 Hunger Vital Sign Answer Date Recorded Within [...] Telephone Encounter - Dayana Krishnamurthy DO - 12/18/2024 3:55 PM EDTSigned Prescriptions: Disp Refills Potassium Citrate ER 10 MEQ (1080 MG) Oral*300 Ta*3 Sig: TAKE ONE TABLET BY MOUTH THREE TIMES A DAY Authorizing Provider: DAYANA KRISHNAMURTHY * Telephone Encounter - Opal Trivedi LPN - 12/18/2024 10:38 AM EDTPending Prescriptions: Disp Refills Potassium Citrate ER 10 MEQ (1080 MG) Oral*300 Ta*3 Sig: TAKE ONE TABLET BY MOUTH THREE TIMES A DAY * Telephone Encounter - TrivediOpal limANNIE - 12/18/2024 10:38 AM EDTPending Prescriptions: Disp Refills Potassium Citrate ER 10 MEQ (1080 MG) Oral*300 Ta*3 Sig: TAKE ONE TABLET BY MOUTH THREE TIMES A DAY * Telephone Encounter - TrivediOpal limANNIE - 12/18/2024 10:36 AM EDT Did you pend patient's preferred pharmacy and medication before forwarding?yes Pharmacy: [facility] Pending Prescriptions: Disp Refills Potassium Citrate ER 10 MEQ (1080 MG) Ora*300 Ta*3 Sig: TAKE ONE TABLET BY MOUTH THREE TIMES A DAY Last Visit: 12/12/2024 (in office), 12/08/2024 (telemedicine) Next Visit: 02/07/2025 If no future appointments scheduled, and last [...] Lab Results Component Value Date/Time CREAT 1.0 09/27/2024 01:51 PM CREAT 1.0 12/22/2019 01:56 PM POTASSIUM 4.4 09/27/2024 01:51 PM POTASSIUM 4.5 12/22/2019 01:56 PM TSH 2.65 02/04/2022 04:29 PM TSH 2.20 12/22/2019 01:56 PM LDL 128 07/07/2023 10:34 AM LDL 103 05/03/2014 09:25 AM LDL NOT APPLICABLE 05/03/2014 09:25 AM ALT 15 09/27/2024 01:51 PM ALT 19 12/22/2019 01:56 PM HGBA1C 5.5 08/12/2022 09:58 AM * Telephone Encounter - Luisa Jimenez - 12/18/2024 7:49 AM EDTPending Prescriptions: Disp Refills Potassium Citrate ER 10 MEQ (1080 MG) Oral*300 Ta*3 Sig: TAKE ONE TABLET BY MOUTH THREE TIMES A DAY documented in this encounter Plan of Treatment Upcoming Encounters Date Type Department Care Team (Late st Contact Info) Description 02/07/2025 1:40 PM EDT Office Visit Family Practice [address] [place] [address] [address] [facility] [place] [phone] Dayana Krishnamurthy, [address] [place] [address] 02/14/2025 1:40 PM EDT Office Visit Family Practice [address] [place] [address] [address] [place] [phone] Dayana Krishnamurthy DO [address] [place] [address] 02/22/2025 10:40 AM EDT Office Visit Rheumatology [facility] [address] [place] [phone] Best Wilkins MD [address] [place] [address] Health Maintenance Due Date Last Done Comments Alpha-1 Antitrypsin 1958 *BISPHONATE OR OTHER ACCEPTABLE MEDICATION NEEDED FOR OSTEOPOROSIS (REFER TO SMARTSET #1146) 11/17/2024 Adult Wellness Visit 01/03/2025 01/04/2024, 12/30/2022, 07/18/2021 COVID-19 Vaccine ( season) 2025 07/12/2024, 10/07/2022, 04/22/2022, Additional history exists Albumin/Creatinine Ratio 06/25/2025 06/25/2022 Depression Screening 12/12/2025 12/12/2024, 01/04/20 24 O2 ASSESSMENT COMPLETED IN PAST YEAR FOR COPD 12/12/2025 12/12/2024 DXA Scan 02/21/2026 02/22/2024, 04/2018, 07/21/2016, Additional history exists DTap/Tdap Vaccines (3 - Td or Tdap) 09/11/2030 09/11/2020, 04/23/2015, 02/04/2006 Zoster Vaccines Completed 02/17/2020, 11/06, 04/14/2012 VITAMIN D LEVEL ONCE IN A LIFETIME-USE SMARTSET# [id number] Completed 08/12/2022, 02/08/2018, 04/26/2014, Additional history exists [...] this encounter Medical Devices Implanted Type Area Draw Press Operator Device Identifier Shelf Expiration Date Model / Serial / Lot Fidel Bio Composite X5 - [id number] Implanted:Qty: 3 on 07/02/2017 by Gael Stratton MD at [facility] Left: Shoulder [employer] 02/01/2019 [id number] / / [id number] [place] Push[place] 4.5x24mm - [id number] Implanted:Qty: 3 on 07/02/2017 by Gael Stratton MD at OR [facility] Left: Shoulder [employer] 02/01/2019 [id number] / / [id number] Lens Intraoc 19.0 - [id number] - [id number] Implanted:Qty: 1 on 12/26/2021 by Saurav Cohen MD at OR [facility] Left: Eye [employer] 10/04/2026 [id number] / [id number] / [id number] Lens Intraoc 19.0 - [id number] - [id number] Implanted:Qty: 1 on 01/09/2022 by Saurav Cohen MD at OR [facility] Right: Eye [employer] 10/04/2026 [id number] / [id number] / [id number] documented as of this encounter Visit Diagnoses Diagnosis Calculus of kidney documented in this encounter Care Teams Generating Plant Superintendent Relationship Specialty Start Date End Date Dayana Krishnamurthy DO [address] [place] [address] PCP - General Internal Medicine 03/17/24 documented as of this encounter
--- OUTSIDE RECORDS SUMMARY | 2025-01-03 23:46 | External Medical Summary | Summary of Care ---
Author Name Unknown Organization [facility] Address [address] [place] [address] Phone [phone] Care Team Providers Care Rigger Third Name Role Phone Dayana Krishnamurthy DO Primary Care Provider [phone] Reason for Visit * Reason Comments Medication Refill Encounter Details Date Type Department Care Team (Late st Contact Info) Description 12/25/2024 Refill Family Practice [address] [place] [address] [place] [phone] Dayana Krishnamurthy DO [address] [place] [address] Allergies No known active allergiesdocumented as of this encounter (statuses as of 12/25/2024) Medications Polyethylene Glycol 3350 17 GM/SCOOP Oral [...] by mouth every evening. 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 1 Each 07/04/20 22 Active Vitamin D3 50 MCG (2000 UT) Oral Capsule Take 1 Capsule by mouth in the morning. 30 Capsule 5 08/14/20 22 Active Calcium Citrate Plus Oral Tablet Take 1 Tablet by mouth in the morning. Active amLODIPine Besylate 5 MG Oral Tablet [...] by mouth every day 90 Capsule 3 5 7:51 AM EDT 05/17/20 24 Active Gabapentin 100 [...] THREE TIMES A DAY 300 Tablet 3 5 5:54 PM EDT 12/19/19 25 026 Active Omeprazole 20 MG Oral Capsule Delayed Release (PriLOSEC) TAKE ONE CAPSULE BY MOUTH EVERY DAY 100 Capsule 3 12/26/19 25 026 Active Omeprazole 20 MG Oral Capsule Delayed Release (PriLOSEC) TAKE ONE CAPSULE BY MOUTH EVERY DAY 100 Capsule 3 4 7:06 AM EST 11/26/19 24 025 Discontin ued(Refil l) documented as of this encounter (statuses as of 12/25/2024) Active Problems Problem Noted Date Diagnosed Date [...] as of this encounter (statuses as of 12/25/2024) Resolved Problems Problem Noted Date Diagnosed Date Resolved Date Chronic respiratory failure, unsp w hypoxia or hypercapnia 10/07/2022 10/28/2022 Inflammatory polyarthritis 10/07/2022 0 10/16/2023 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, bilateral legs 10/07/2022 [...] as of this encounter (statuses as of 12/25/2024) Immunizations Name Administration Dates Next Due COVID-19 mRNA, LNP-s, No Pre serve, 2-Dose Series ([employer]) 08/14/2021,12/11/2020,11/13/2020 COVID-19, LNP-s, No Preserve , Neal-sucrose, Ages 12+ (Pfizer) 04/22/2022 COVID-19, MRNA-LNP, PF, 30 M CG/0.3 mL, 12 YRS AND ABOVE, IM ([facility]) 07/12/2024 Covid-19, Mrna, Lnp-s, Pf, B ivalent, 30 Mcg, IM, 12 yrs and above ([employer]) 10/07/2022 Pneumococcal Conjugate Vacc, 13 Valent (Prevnar) 01/31/2015 Pneumococcal Conjugate Vacci ne, 20-valent ([id number]) 07/12/2024 RSV Vac., Bivalent, Perfusio n F, [...] encounter Miscellaneous Notes * Telephone Encounter - Zeeshan [facility] - 12/25/2024 9:56 AM EDTSigned Prescriptions: Disp Refills Omeprazole 20 MG Oral Capsule Delayed Rele*100 Ca*3 Sig: TAKE ONE CAPSULE BY MOUTH EVERY DAYAuthorizing Provider: DAYANA KRISHNAMURTHY AOrdering User: ZEESHAN MARIN [facility] ISTINE documented in this encounter Plan of Treatment Upcoming Encounters Date Type Department Care Team (Late st Contact Info) Description 02/07/2025 1:40 PM EDT Office Visit Family Practice 65 [facility] [address] [place] [phone] Dayana Krishnamurthy DO [address] [place] [address] 02/14/2025 1:40 PM EDT Office Visit Family Practice 65 [facility] [address] [place] [address] Dayana Krishnamurthy DO [address] [facility] [address] 02/22/2025 10:40 AM EDT Office Visit Rheumatology [facility] [address] [place] [phone] Best Wilkins MD [address] [facility] [place] [address] Health Maintenance Due Date Last Done Comments [...] D LEVEL ONCE IN A LIFETIME-USE SMARTSET# [id number] Completed 08/12/2022, 02/08/2018, 04/26/2014, Additional history exists [...] this encounter Medical Devices Implanted Type Area Nurse Practitioner Manager Device Identifier Shelf Expiration Date Model / Serial / Lot Corkscrew Bio Composite X5 - [id number] Implanted:Qty: 3 on 07/02/2017 by Gael Stratton MD at OR [facility] Left: Shoulder [employer] 02/01/2019 AR-1927BCF / / [id number] [place] Pushlock 4.5x24mm - [id number] Implanted:Qty: 3 on 07/02/2017 by Gael Stratton MD at OR [facility] Left: Shoulder [employer] 02/01/2019 AR-1922BC / / [id number] Lens Intraoc 19.0 - [id number] - [id number] Implanted:Qty: 1 on 12/26/2021 by Saurav Cohen MD at OR [facility] Left: Eye [employer]OMB 10/04/2026 [id number] / [id number] / [id number] Lens Intraoc 19.0 - [id number] - [id number] Implanted:Qty: 1 on 01/09/2022 by Saurav Cohen MD at OR [facility] Right: Eye BAUSCH [employer] LOMB 10/04/2026 [id number] / [id number] / [id number] documented as of this encounter Care Teams Rigger Third Relationship Specialty Start Date End Date Dayana Krishnamurthy DO [address] [place] [facility] [place] [place] [address] PCP - General Internal Medicine 03/17/24 documented as of this encounter
--- OUTSIDE RECORDS SUMMARY | 2025-01-03 23:47 | External Medical Summary | Summary of Care ---
Author Name Unknown Organization [facility] Address [address] [place] [address] Phone [phone] Care Team Providers Care Poultry Sexer Name Role Phone Teofilo Krishnamurthy DO Primary Care Provider [phone] Reason for Visit * Reason Onset Date Comments Follow Up 12/07/2024 Encounter Details Date Type Department Care Team (Late st Contact Info) Description 12/07/2024 3:15 PM EST Scheduled Telephone Family Practice 65 [facility] [address] [place] [address] Opal Preston RN [address] [place] [address] Allergies No known active allergiesdocumented as of this encounter (statuses as of 12/08/2024) Medications Polyethylene Glycol 3350 17 GM/SCOOP Oral [...] mouth in the morning. Active oxygen IN GASIndications:CLOTHING PATTERNMAKER D, group B, by GOLD 2017 classification ([facility]) Administer into nostril 3 L/min(Oxygen) [...] PAIN, SEVERE. 60 Tablet 11/09/19 25 Active Doxycycline Hyclate 100 MG Oral Capsule Take 1 Capsule by mouth in the morning. X 5 days. 11/29/19 25 Active Oseltamivir Phosphate 75 MG Oral Capsule (Tamiflu) Take 1 Capsule by mouth in the morning. 11/29/19 25 Active predniSONE 10 MG Oral Tablet (Deltasone) Take 1 Tablet by mouth in the morning. 4 tabs x 1 day, 3 tabs x 2 days, 2 tabs x 2 days, 1 tab x 2 days. 11/29/19 25 Active guaiFENesin ER 600 MG Oral Tablet Extended Release 12 Hour (Mucinex) Take 1 Tablet by mouth in the morning and 1 Tablet before bedtime. X 5 days. Active Lidocaine 4 % External Patch (Aspercreme) Place 1 Patch topically on the skin daily. As needed for rib pain Active documented as of this encounter (statuses as of 12/08/2024) Active Problems Problem Noted Date Diagnosed Date [...] as of this encounter (statuses as of 12/08/2024) Resolved Problems Problem Noted Date Diagnosed Date [...] as of this encounter (statuses as of 12/08/2024) Immunizations Name Administration Dates Next Due COVID-19 mRNA, LNP-s, No Pre serve, 2-Dose Series ([employer]) 08/14/2021,12/11/2020,11/13/2020 COVID-19, LNP-s, No Preserve , Neal-sucrose, Ages 12+ (Pfizer) 04/22/2022 COVID-19, MRNA-LNP, PF, 30 M CG/0.3 mL, 12 YRS AND ABOVE, IM ([facility]) 07/12/2024 Covid-19, Mrna, Lnp-s, Pf, B ivalent, 30 Mcg, IM, 12 yrs and above ([employer]) 10/07/2022 Pneumococcal Conjugate Vacc, 13 Valent (Prevnar) 01/31/2015 Pneumococcal Conjugate Vacci ne, 20-valent ([id number]) 07/12/2024 RSV Vac., Bivalent, Perfusio n F, [...] No 11/09/2023 Does the household have a [facility] source of income? (Household - [...] Miscellaneous Notes * Telephone Encounter - Opal Preston RN - 12/07/2024 4:18 PM EST IMMANUEL #2 Phone visit for post hospital d/c [facility] Dx: Generalized weakness Acute hypoxemic respiratory failure Influenza A COPD Hypertension GERD Dates of stay: 11/25/2024-11/29/2024 Call to pt-no answer-message left to call back at [phone] documented in this encounter Plan of Treatment Upcoming Encounters Date Type Department Care Team (Late st Contact Info) Description 12/08/2024 10:00 AM EST Telemedicine Family Practice 65 [facility] [address] [place] [address] College, Pharmacist [address] [place] [address] 12/08/2024 11:00 AM EST Scheduled Telephone Family Practice [address] [place] [address] [address] [place] [id number] Opal Preston, PAPA [address] [place] [phone] 12/12/2024 1:00 PM EDT Office Visit Family Practice [address] [place] [address] [address] [place] [phone] Teofilo Krishnamurthy, DO [address] [place] [address] 02/14/2025 1:40 PM EDT Office Visit Family Practice [address] [place] [address] [address] [place] [phone] Teofilo Krishnamurthy, DO [address] [place] [address] 02/22/2025 10:40 AM EDT Office Visit Rheumatology [facility] [address] [place] [phone] Best Wilkins MD [address] [place] [address] Health Maintenance Due Date Last Done Comments [...] D LEVEL ONCE IN A LIFETIME-USE SMARTSET# [id number] Completed 08/12/2022, 02/08/2018, 04/26/2014, Additional history exists [...] this encounter Medical Devices Implanted Type Area Filler Machine Operator Device Identifier Shelf Expiration Date Model / Serial / Lot Fidel Bio Composite X5 - [id number] Implanted:Qty: 3 on 07/02/2017 by Gael Stratton MD at OR [facility] Left: Shoulder [employer] 02/01/2019 AR-1927BCF / / [id number] Pushlock 4.5x24mm - [id number] Implanted:Qty: 3 on 07/02/2017 by Gael Stratton MD at OR [facility] Left: Shoulder [employer] 02/01/2019 AR-1922BC / / [id number] Lens Intraoc 19.0 - [id number] - [id number] Implanted:Qty: 1 on 12/26/2021 by Saurav Cohen MD at OR [facility] Left: Eye [employer]OMB 10/04/2026 [id number] / [id number] / [id number] Lens Intraoc 19.0 - [id number] - [id number] Implanted:Qty: 1 on 01/09/2022 by Saurav [facility] MD at [facility] Right: Eye [employer]CH [employer] LOMB 10/04/2026 [id number] / [id number] / [id number] documented as of this encounter Care Teams Poultry Sexer Relationship Specialty Start Date End Date Teofilo Krishnamurhty DO [address] [place] [address] PCP - General Internal Medicine 03/17/24 documented as of this encounter
--- OUTSIDE RECORDS SUMMARY | 2025-01-03 23:47 | External Medical Summary | Summary of Care ---
Author Name Unknown Organization [facility] Address [address] [place] [address] Phone [phone] Care Team Providers Care Sorority Mother Name Role Phone Teofilo Krishnamurthy DO Primary Care Provider [phone] Reason for Visit * Reason Comments Dosage Adjustment Via Phone (anticoag Cl inic) Follow Up Encounter Details Date Type Department Care Team (Late st Contact Info) Description 12/08/2024 10:00 AM EST Telemedicine Family Practice 65 [facility] [address] [place] [address] College, Pharmacist [address] [address] Medication management* Allergies No known active allergiesdocumented as of this encounter (statuses as of 12/12/2024) Medications Polyethylene Glycol 3350 17 GM/SCOOP Oral [...] by mouth every evening. Active oxygen IN GASIndications:PATIENT ASSISTANT D, group B, by GOLD 2017 classification ([facility]) Administer into nostril 3 L/min(Oxygen) continuous [...] 4 10:25 AM EST 11/20/19 24 025 Active [...] 5 5:50 PM EST 10/27/19 25 Active traMADol HCl 50 MG Oral Tablet (Ultram)Indication s:Generalized osteoarthritis TAKE 1 TABLET BY MOUTH 2 TIMES A DAY NEEDED FOR PAIN, SEVERE. 60 Tablet 11/09/19 25 Active guaiFENesin ER 600 MG Oral Tablet Extended Release 12 Hour (Mucinex) Take 1 Tablet by mouth in the morning and 1 Tablet before bedtime. X 5 days. Active Lidocaine 4 % External Patch (Aspercreme) Place 1 Patch topically on the skin daily. As needed for rib pain Active Trelegy Ellipta 100-62.5-25 MCG/ACT Aerosol Powder Breath Activated (Fluticasone-Umecl idinium-Vilanterol ) Inhale 1 Puff by mouth daily. 180 Each 4 7:49 AM EDT 06/27/20 24 025 Discontin ued(Medic ation List Clean Up) predniSONE 20 MG Oral Tablet (Deltasone)Indicat ions:Viral upper respiratory tract infection Take 1 Tablet by mouth in the morning for 5 days. 5 Tablet 09/27/20 24 025 Discontin ued(Medic ation List Clean Up) Doxycycline Hyclate 100 MG Oral Capsule Take 1 Capsule by mouth in the morning. X 5 days. 11/29/19 25 025 Discontin ued(Medic ation List Clean Up) Oseltamivir Phosphate 75 MG Oral Capsule (Tamiflu) Take 1 Capsule by mouth in the morning. 11/29/19 25 025 Discontin ued(Medic ation List Clean Up) predniSONE 10 MG Oral Tablet (Deltasone) Take 1 Tablet by mouth in the morning. 4 tabs x 1 day, 3 tabs x 2 days, 2 tabs x 2 days, 1 tab x 2 days. 11/29/19 25 025 Discontin ued(Medic ation List Clean Up) documented as of this encounter (statuses as of 12/12/2024) Active Problems Problem Noted Date Diagnosed Date [...] as of this encounter (statuses as of 12/12/2024) Resolved Problems Problem Noted Date Diagnosed Date [...] as of this encounter (statuses as of 12/12/2024) Immunizations Name Administration Dates Next Due COVID-19 mRNA, LNP-s, No Pre serve, 2-Dose Series ([employer]) 08/14/2021,12/11/2020,11/13/2020 COVID-19, LNP-s, No Preserve , Neal-sucrose, Ages 12+ ([employer]) 04/22/2022 COVID-19, MRNA-LNP, PF, 30 M CG/0.3 mL, 12 YRS AND ABOVE, IM ([employer]) 07/12/2024 Covid-19, Mrna, Lnp-s, Pf, B ivalent, 30 Mcg, IM, 12 yrs and above ([employer]) 10/07/2022 Pneumococcal Conjugate Vacc, 13 Valent (Prevnar) 01/31/2015 Pneumococcal Conjugate Vacci ne, 20-valent ([id number]) 07/12/2024 RSV Vac., Bivalent, Perfusio n F, [...] No 11/09/2023 Does the household have a [facility] source of income? (Household - for [...] as of this encounter Progress Notes * Jasmyne Doshi, [facility] - 12/08/2024 10:18 AM EST Medication Therapy Disease Management Clinic - Medication Reconciliation Encounter Type: discussed with patient via phone Med Bottles Available for Review: no Med Rec Reason: Transition of Care Date of Admission: 11/25/2024 Date of Discharge: 11/29/2024 Reason for Admission: COPD Exacerbation, Influenza A, and acute hypoxic respiratory failure Medication changes during admission/on discharge: Added: - Doxycycline 100 mg once a day for 5 days - Prednisone 10 mg taper - Lidocaine patches OTC - Guaifenesin ER 600 mg 1 tablet BID for 5 days - Oseltamivir 75 mg 1 capsule in the morning (patient did not steel pickler from the pharmacy) Modified: - Tramadol 50 mg q8h PRN for severe pain Discontinued: n/a Does the patient currently have all of their medications in their home? Did not steel pickler his tamiflu Fall Patient reports a recent fall. 11/25/2024 Patient is taking medications in the following classes which could increase patient's risk of falls: Alpha blockers - Tamsulosin 0.4 mg once a day Opioids - Tramadol 50 mg BID PRN for severe pain Antihypertensives (only if hypotensive) - Losartan 25 mg, amlodipine 5 mg (not hypotensive) Is vitamin D level within goal: Low in 2021, is taking a supplement Has patient reported hypotension? no Has patient reported hypoglycemia? no Did patient hit head? no Is patient on any anticoagulant or antiplatelet medications?no Has the patient used marijuana recently? unknown What other interventions for fall prevention are being utilized? unknown Enrolled in Medicare Prescription Payment Plan for current year? Unsure [x] Preferred pharmacy reviewed/updated [x] Problem list reviewed [x] Allergies reviewed and updated if needed [x] Drug interaction check completed [x] HEDIS list addressed Immunizations indicated: Up to date Labs/Vitals/Risk Scores: The ASCVD Risk score (Nahid WILLS, et al., 2019) failed to calculate for the following reasons: The 2019 ASCVD risk score is only valid for ages 40 to 79 Risk score cannot be calculated because patient has a medical history suggesting prior/existing ASCVD BP Readings from Last 3 Encounters: 11/14/24 116/60 09/27/24 114/68 07/12/24 118/60 No results for input(s): "HGBA1C" in the last 49975 hours. Recent Labs Units 09/27/24 1351 07/05/24 1019 11/09/23 1208 ESTIMATED GLOMERULAR FILTRATION RATE - [facility] mL/min 74 71 77 Serum creatinine: 1 mg/dL 09/27/24 1351 Estimated creatinine clearance: 58.7 mL/min Assessment: Medication discrepancies identified: - Did not fill his tamiflu post discharge, as pharmacy needed clarification from hospital. Confirmed with patient it was never filled. - patient taking tramadol BID as he was before, not TID as recorded at the hospital. g Dose/frequency of medications appropriate for current renal function? yes Other medication problems identified: - Had recent fall due to weakness due to being sick; on tramadol which can increase fall risk further Plan: Immunizations facilitated: None Patient education provided: - discussed rinsing out mouth after Trelegy use - discussed that he can stop mucinex if no longer coughing Referral pended for follow up management of: N/A Medication recommendations: - advised patient that he does not need tamiflu now as he's outside the treatment window. - encouraged lidocaine/dicofenac use ahead of opioids I spent a total of 30-39 minutes (exact time 30 mins) on the date of service in preparation, delivery, and documentation of the care provided to Emmanuel Hung excluding any time spent in the performance of separately billed services or time spent by another provider/QHP. Stephanie Teran [facility] Clinical Pharmacist - Research Test Engine Operator Medication Therapy Management Clinic 12/02/2024, 10:56 AM documented in this encounter Plan of Treatment Upcoming Encounters Date Type Department Care Team (Late st Contact Info) Description 12/12/2024 1:00 PM EDT Office Visit Family Practice [address] [place] [address] [address] [place] [phone] Teofilo Krishnamurthy, [address] [place] [address] 02/14/2025 1:40 PM EDT Office Visit Family Practice 65 [facility] [address] [place] [phone] Teofilo Krishnamurthy, [address] [place] [address] 02/22/2025 10:40 AM EDT Office Visit Rheumatology [facility] [address] [place] [phone] Best Wilkins MD [address] [facility] [place] [address] Health Maintenance Due Date Last Done Comments [...] D LEVEL ONCE IN A LIFETIME-USE SMARTSET# [id number] Completed 08/12/2022, 02/08/2018, 04/26/2014, Additional history exists [...] this encounter Medical Devices Implanted Type Area Electrical Engineering Professor Device Identifier Shelf Expiration Date Model / Serial / Lot Fidel Bio Composite X5 - [id number] Implanted:Qty: 3 on 07/02/2017 by Gael Stratton MD at OR [facility] Left: Shoulder [employer] 02/01/2019 AR-1927BCF / / [id number] [place] Pushlock 4.5x24mm - [id number] Implanted:Qty: 3 on 07/02/2017 by Gael Stratton MD at OR [facility] Left: Shoulder [employer] 02/01/2019 AR-1922BC / / [id number] Lens Intraoc 19.0 - [id number] - [id number] Implanted:Qty: 1 on 12/26/2021 by Saurav Cohen MD at OR [facility] Left: Eye [employer]OMB 10/04/2026 [id number] / [id number] / [id number] Lens Intraoc 19.0 - [id number] - [id number] Implanted:Qty: 1 on 01/09/2022 by Saurav Cohen MD at OR [facility] Right: Eye [employer]CH [employer]OMB 10/04/2026 [id number] / [id number] / [id number] documented as of this encounter Visit Diagnoses Diagnosis Medication management- Primary Encounter for long-term (current) use of other medications documented in this encounter Care Teams Sorority Mother Relationship Specialty Start Date End Date Teofilo Krishnamurthy DO [address] [place] [address] PCP - General Internal Medicine 03/17/24 documented as of this encounter
--- OUTSIDE RECORDS SUMMARY | 2025-01-03 23:47 | External Medical Summary | Summary of Care ---
Author Name Unknown Organization [facility] Address [address] [place] [address] Phone [phone] Care Team Providers Care Wet Chemistry Analyst Name Role Phone Teofilo Krishnamurthy DO Primary Care Provider [phone] Reason for Visit * Reason Comments Follow Up Dosage Adjustment Via Phone (carolag Sadiq inliliana) Encounter Details Date Type Department Care Team (Late st Contact Info) Description 12/02/2024 10:20 AM EST Telemedicine Family Practice 65 [facility] 293 [place] [address] College, Pharmacist [address] [address] Allergies No known active allergiesdocumented as of this encounter (statuses as of 12/02/2024) Medications Polyethylene Glycol 3350 17 GM/SCOOP Oral [...] mouth in the morning. Active oxygen IN GASIndications:COIL TAPER D, group B, by GOLD 2017 classification ([facility]) Administer into nostril 3 L/min(Oxygen) continuous [...] as of this encounter (statuses as of 12/02/2024) Active Problems Problem Noted Date Diagnosed Date [...] as of this encounter (statuses as of 12/02/2024) Resolved Problems Problem Noted Date Diagnosed Date [...] as of this encounter (statuses as of 12/02/2024) Immunizations Name Administration Dates Next Due COVID-19 mRNA, LNP-s, No Pre serve, 2-Dose Series ([employer]) 08/14/2021,12/11/2020,11/13/2020 COVID-19, LNP-s, No Preserve , Neal-sucrose, Ages 12+ (Pfizer) 04/22/2022 COVID-19, MRNA-LNP, PF, 30 M CG/0.3 mL, 12 YRS AND ABOVE, IM ([facility]) 07/12/2024 Covid-19, Mrna, Lnp-s, Pf, B ivalent, 30 Mcg, IM, 12 yrs and above ([employer]) 10/07/2022 Pneumococcal Conjugate Vacc, 13 Valent (Prevnar) 01/31/2015 Pneumococcal Conjugate Vacci ne, 20-valent ([id number]) 07/12/2024 RSV Vac., Bivalent, Perfusio n F, [...] No 11/09/2023 Does the household have a [facility] source of income? 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 Did not supervisor picking crew his tamiflu Fall Patient reports a recent [...] results for input(s): "HGBA1C" in the last 98380 hours. Recent Labs Units 09/27/24 1351 07/05/24 1019 11/09/23 1208 ESTIMATED GLOMERULAR FILTRATION RATE - [facility] mL/min 74 71 77 Serum creatinine: 1 mg/dL 09/27/24 1351 Estimated creatinine clearance: 58.7 mL/min Assessment: Medication discrepancies identified: - Did not fill his tamiflu post discharge, as pharmacy needed clarification from hospital. Still did not have it filled as of 12/02. Will not be efficient in treatment as this time. - Did not supervisor picking crew Licodaine patch as of 11/30/24 Dose/frequency of medications appropriate for current renal function? yes Other medication problems identified: - Had recent fall due to weakness due to being sick; on tramadol - On a few antihypertensive medications Plan: Immunizations facilitated: None Patient education provided: n/a Referral pended for follow up management of: N/A Medication recommendations: - Ensure education on Tamiflu that it will not be effective to start taking at this time I spent a total of 30-39 minutes (exact time 30 mins) on the date of service in preparation, delivery, and documentation of the care provided to Emmanuel Hung excluding any time spent in the performance of separately billed services or time spent by another provider/QHP. Stephanie Teran [facility] Clinical Pharmacist - Library Attendant Medication Therapy Management Clinic 12/02/2024, 10:56 AM documented in this encounter Plan of Treatment Upcoming Encounters Date Type Department Care Team (Late st Contact Info) Description 12/06/2024 10:00 AM EST Scheduled Telephone Family Practice 65 [facility] 293 [place] [phone] Opal Preston RN 293 [facility] [place] [address] 12/08/2024 10:00 AM EST Telemedicine Family Practice 65 [facility] 293 [place] [address] College, Pharmacist [address] [place] [address] 12/12/2024 1:00 PM EDT Office Visit Family Practice 65 [facility] 293 [place] [address] Teofilo Krishnamurthy, 293 [facility] [place] [address] 02/14/2025 1:40 PM EDT Office Visit Family Practice 65 [facility] 293 [place] [address] Teofilo Krishnamurthy, 293 [facility] [place] [address] 02/22/2025 10:40 AM EDT Office Visit Rheumatology [facility] [address] [place] [phone] Best Wilkins MD [address] [facility] [place] [address] Health Maintenance Due Date Last Done Comments [...] D LEVEL ONCE IN A LIFETIME-USE SMARTSET# [id number] Completed 08/12/2022, 02/08/2018, 04/26/2014, Additional history exists [...] this encounter Medical Devices Implanted Type Area Axminster Rug Setter Device Identifier Shelf Expiration Date Model / Serial / Lot Fidel Bio Composite X5 - [id number] Implanted:Qty: 3 on 07/02/2017 by Gael Stratton MD at OR [facility] Left: Shoulder [employer] 02/01/2019 AR-1927BCF / / [id number] Pushlock 4.5x24mm - [id number] Implanted:Qty: 3 on 07/02/2017 by Gael Stratton MD at OR [facility] Left: Shoulder [employer] 02/01/2019 AR-[id number] / / [id number] Lens Intraoc 19.0 - [id number] - [id number] Implanted:Qty: 1 on 12/26/2021 by Saurav Cohen MD at OR [facility] Left: Eye [employer]OMB 10/04/2026 [id number] / [id number] / [id number] Lens Intraoc 19.0 - [id number] - [id number] Implanted:Qty: 1 on 01/09/2022 by Saurav Cohen MD at OR [facility] Right: Eye BAUSCH [employer] LOMB 10/04/2026 [id number] / [id number] / [id number] documented as of this encounter Care Teams Wet Chemistry Analyst Relationship Specialty Start Date End Date Teofilo Krishnamurthy DO [address] [place] [address] PCP - General Internal Medicine 03/17/24 documented as of this encounter
--- OUTSIDE RECORDS SUMMARY | 2025-01-03 23:47 | External Medical Summary | Summary of Care ---
Author Name Unknown Organization [facility] Address [address] [place] [address] Phone [phone] Care Team Providers Care Social Work Assistant Name Role Phone Dayana Krishnamurthy DO Primary Care Provider [phone] Reason for Visit * Reason Onset Date Comments Medication Refill 12/15/2024 Encounter Details Date Type Department Care Team (Late st Contact Info) Description 12/15/2024 Refill Family Practice [address] [place] [address] [place] [phone] Dayana Krishnamurthy DO [address] [place] [address] GENERAL OSTEOARTHROSIS Allergies No known active allergiesdocumented as of this encounter (statuses as of 12/16/2024) Medications Polyethylene Glycol 3350 17 GM/SCOOP Oral [...] by mouth every evening. 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 60 Tablet 12/16/19 25 Active traMADol HCl 50 MG Oral Tablet (Ultram)Indication s:Generalized osteoarthritis TAKE 1 TABLET BY MOUTH 2 TIMES A DAY NEEDED FOR PAIN, SEVERE. 60 Tablet 11/09/19 25 025 Discontin ued(Refil l) documented as of this encounter (statuses as of 12/16/2024) Active Problems Problem Noted Date Diagnosed Date [...] as of this encounter (statuses as of 12/16/2024) Resolved Problems Problem Noted Date Diagnosed Date [...] as of this encounter (statuses as of 12/16/2024) Immunizations Name Administration Dates Next Due COVID-19 mRNA, LNP-s, No Pre serve, 2-Dose Series ([employer]) 08/14/2021,12/11/2020,11/13/2020 COVID-19, LNP-s, No Preserve , Neal-sucrose, Ages 12+ ([employer]) 04/22/2022 COVID-19, MRNA-LNP, PF, 30 M CG/0.3 mL, 12 YRS AND ABOVE, IM [facility] 07/12/2024 Covid-19, Mrna, Lnp-s, Pf, B ivalent, 30 Mcg, IM, 12 yrs and above ([employer]) 10/07/2022 Pneumococcal Conjugate Vacc, 13 Valent (Prevnar) 01/31/2015 Pneumococcal Conjugate Vacci ne, 20-valent ([id number]) 07/12/2024 RSV Vac., Bivalent, Perfusio n F, [...] Telephone Encounter - Dayana Krishnamurthy DO - 12/15/2024 4:19 PM EDTSigned Prescriptions: Disp Refills traMADol HCl 50 MG Oral Tablet (Ultram) 60 Tab*0 Sig: Take 1 Tablet by mouth 2 times a day as needed for Pain, Severe.Authorizing Provider: DAYANA KRISHNAMURTHY * Telephone Encounter - Dayana Krishnamurthy DO - 12/15/2024 4:18 PM EDT I have reviewed the patient’s controlled substance dispensing history in the Prescription Drug Monitoring Program in compliance with the [facility] regulations before prescribing a controlled substance. Last Tox Screen Results: No results found. However, due to the size of the patient record, not all encounters were searched.Please check Results Review for a complete set of results. Medication is due * Telephone Encounter - Radha Wynn [facility] - 12/15/2024 1:04 PM EDTPending Prescriptions: Disp Refills traMADol HCl 50 MG Oral Tablet (Ultram) 60 Tab*0 Sig: Take 1 Tablet by mouth 2 times a day as needed for Pain, Severe. * Telephone Encounter - Radha Wynn [facility] - 12/15/2024 1:04 PM EDT I have reviewed the patient’s controlled substance dispensing history in the Prescription Drug Monitoring Program in compliance with the [facility] regulations before prescribing a controlled substance. PDMP checked on 12/15/2024. Pending Prescriptions: Disp Refills traMADol HCl 50 MG Oral Tablet (Ultram) 60 Tab*0 Sig: Take 1 Tablet by mouth 2 times a day as needed for Pain, Severe. Last Visit: 12/12/2024 (in office), 12/08/2024 (telemedicine) Next Visit: 02/07/2025 Date medication was last filled: 11/09/24 Date medication is due for refill: 12/05/24 Pharmacy: [id number] Is this request for a controlled substance? Yes and Urine Drug Screen Not completed Toxicology results: No results found. However, due to the size of the patient record, not all encounters were searched.Please check Results Review for a complete set of results. Please approve if appropriate. Thank You, Radha Wynn [facility] Clinical Pharmacist Central[facility] Services ([facility]) [phone] [id number] 12/15/2024, 1:04 PM * Telephone Encounter - Neelima Moreau CPhT - 12/15/2024 12:49 PM EDT Pt stating he is out of medication. Did you pend patient's preferred pharmacy and medication before forwarding?yes Pharmacy: [id number] [address] [facility] Pending Prescriptions: Disp Refills traMADol HCl 50 MG Oral Tablet (Ultram) 60 Tab*0 Sig: Take 1 Tablet by mouth 2 times a day as needed for Pain, Severe. Last Visit: 12/12/2024 (in office), 12/08/2024 (telemedicine) Next Visit: 02/07/2025 If no future appointments scheduled, and last appointment is greater than a year ago, please schedule patient for a follow-up appointment Last date the medication was ordered: 11/09/2024 Is this request for a controlled substance?Yes, What was the last refill date 11/09/2024 w/ quantity 60 and dosage 50 MG and Urine Drug Screen Not completed Urine Drug Screen:No results found. However, due [...] 01:56 PM HGBA1C 5.5 08/12/2022 09:58 AM documented in this encounter Plan of Treatment Upcoming Encounters Date Type Department Care Team (Late st Contact Info) Description 02/07/2025 1:40 PM EDT Office Visit Family Practice [address] [place] 293 [facility] [place] [address] Dayana Krishnamurthy, DO 293 [place] [address] 02/14/2025 1:40 PM EDT Office Visit Family Practice 65 [facility] 293 [facility] [place] [address] Dayana Krishnamurthy, DO 293 [facility], [place] [address] 02/22/2025 10:40 AM EDT Office Visit Rheumatology [facility] [address] [place] [phone] Best Wilkins MD [address] [facility] [address] Health Maintenance Due Date Last Done Comments [...] D LEVEL ONCE IN A LIFETIME-USE SMARTSET# [id number] Completed 08/12/2022, 02/08/2018, 04/26/2014, Additional history exists [...] this encounter Medical Devices Implanted Type Area Fur Remodeler Device Identifier Shelf Expiration Date Model / Serial / Lot Mojganw Bio Composite X5 - [id number] Implanted:Qty: 3 on 07/02/2017 by Gael Stratton MD at OR [facility] Left: Shoulder [employer] 02/01/2019 AR-1927BCF / / [id number] [place] Pushlock 4.5x24mm - [id number] Implanted:Qty: 3 on 07/02/2017 by Gael Stratton MD at OR [facility] Left: Shoulder [employer] 02/01/2019 AR-1922BC / / [id number] Lens Intraoc 19.0 - [id number] - [id number] Implanted:Qty: 1 on 12/26/2021 by Saurav Cohen MD at OR [facility] Left: Eye [employer]OM[employer] 10/04/2026 [id number] / [id number] / [id number] Lens Intraoc 19.0 - [id number] - [id number] Implanted:Qty: 1 on 01/09/2022 by Saurav Cohen MD at OR [facility] Right: Eye [employer]OM[employer] 10/04/2026 [id number] / [id number] / [id number] documented as of this encounter Visit Diagnoses Diagnosis GENERAL OSTEOARTHROSIS Generalized osteoarthrosis, unspecified site documented in this encounter Care Teams Social Work Assistant Relationship Specialty Start Date End Date Dayana Krishnamurthy DO [facility] [place] [address] PCP - General Internal Medicine 03/17/24 documented as of this encounter
--- OUTSIDE RECORDS SUMMARY | 2025-01-03 23:47 | External Medical Summary | Summary of Care ---
Author Name Unknown Organization [facility] Address [address] [place] [address] Phone [phone] Care Team Providers Care Floor Winder Name Role Phone Teofilo Krishnamurthy DO Primary Care Provider [phone] Encounter Details Date Type Department Care Team (Late st Contact Info) Description 11/25/2024 Result Scan Unspecified Department <No scans attached> Allergies No known active allergiesdocumented as of this encounter (statuses as of 12/13/2024) Medications Polyethylene Glycol 3350 17 GM/SCOOP Oral [...] by mouth every evening. 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 1 Each 07/04/20 22 Active Vitamin D3 50 MCG (1999 UT) [...] MEAL OF THE DAY 100 Tablet 3 12/09/2024 6:03 PM EST 08/29/20 24 025 Active [...] as of this encounter (statuses as of 12/13/2024) Active Problems Problem Noted Date Diagnosed Date [...] as of this encounter (statuses as of 12/13/2024) Resolved Problems Problem Noted Date Diagnosed Date [...] as of this encounter (statuses as of 12/13/2024) Immunizations Name Administration Dates Next Due COVID-19 mRNA, LNP-s, No Pre serve, 2-Dose Series ([employer]) 08/14/2021,12/11/2020,11/13/2020 COVID-19, LNP-s, No Preserve , Neal-sucrose, Ages 12+ ([employer]) 04/22/2022 COVID-19, MRNA-LNP, PF, 30 M CG/0.3 mL, 12 YRS AND ABOVE, IM ([facility]) 07/12/2024 Covid-19, Mrna, Lnp-s, Pf, B ivalent, 30 Mcg, IM, 12 yrs and above (Pfizer) 10/07/2022 Pneumococcal Conjugate Vacc, 13 Valent (Prevnar) 01/31/2015 Pneumococcal Conjugate Vacci ne, 20-valent ([id number]) 07/12/2024 RSV Vac., Bivalent, Perfusio n F, [...] PM EDT Office Visit Family Practice 65 [facility] 293 [place] [phone] Teofilo Krishnamurthy, DO 293 [place] [address] 02/14/2025 1:40 PM EDT Office Visit Family Practice 65 [facility] [address] [place] [phone] Teofilo Krishnamurthy, DO 293 [place] [address] 02/22/2025 10:40 AM EDT Office Visit Rheumatology [facility] [address] [place] [phone] Best Wilkins MD [address] [facility] [place] [address] Health Maintenance Due Date Last Done Comments [...] COPD 12/12/2025 12/12/2024 DXA Scan 02/21/2026 02/22/2024, 11/0 04/2018, 07/21/2016, Additional history exists DTap/Tdap Vaccines (3 - Td or Tdap) 09/11/2030 09/11/2020, 04/23/2015, 02/04/2006 Zoster Vaccines Completed 02/17/2020, 11/06, 04/14/2012 VITAMIN D LEVEL ONCE IN A LIFETIME-USE SMARTSET# [id number] Completed 08/12/2022, 02/08/2018, 04/26/2014, Additional history exists [...] this encounter Medical Devices Implanted Type Area Store Keeper Device Identifier Shelf Expiration Date Model / Serial / Lot MichelleXanic Bio Composite X5 - [id number] Implanted:Qty: 3 on 07/02/2017 by Gael Stratton MD at OR [facility] Left: Shoulder [employer] 02/01/2019 AR-1927BCF / / [id number] [place] Pushlock 4.5x24mm - [id number] Implanted:Qty: 3 on 07/02/2017 by Gael Stratton MD at OR [facility] Left: Shoulder [employer] 02/01/2019 AR-1922BC / / [id number] Lens Intraoc 19.0 - [id number] - [id number] Implanted:Qty: 1 on 12/26/2021 by Saurav Cohen MD at OR [facility] Left: Eye [employer] 10/04/2026 [id number] / [id number] / [id number] Lens Intraoc 19.0 - [id number] - [id number] Implanted:Qty: 1 on 01/09/2022 by Saurav Cohen MD at OR [facility] Right: Eye [employer]OM[employer] 10/04/2026 [id number] / [id number] / [id number] documented as of this encounter Procedures Procedure Name Priority Date/Time Associated Diagnosis Comments RADIOLOGY SCANNED RESULT 11/25/2024 documented in this encounter Results * RADIOLOGY SCANNED RESULT (11/25/2024) 11/25/2024 us No Physician Data Unknown DIAGNOSTIC RADIOLOGY S ERVICES Final Result documented in this encounter Care Teams Floor Winder Relationship Specialty Start Date End Date Teofilo Krishnamurthy DO [address] [place] [address] PCP - General Internal Medicine 03/17/24 documented as of this encounter
--- OUTSIDE RECORDS SUMMARY | 2025-01-03 23:47 | External Medical Summary | Summary of Care ---
Author Name Unknown Organization [facility] Address [address] [place] [address] Phone [phone] Care Team Providers Care Product Marketing Consultant Name Role Phone Teofilo Krishnamurthy DO Primary Care Provider [phone] Reason for Visit * Reason Onset Date Comments Medication Refill 12/15/2024 Encounter Details Date Type Department Care Team (Late st Contact Info) Description 12/15/2024 Refill Family Practice [address] [place] [address] [place] [phone] Teofilo Krishnamurthy DO [address] [place] [address] Allergies No known active allergiesdocumented as of this encounter (statuses as of 12/15/2024) Medications Polyethylene Glycol 3350 17 GM/SCOOP Oral [...] by mouth every evening. 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 B, by GOLD 2017 classification ([facility]) Administer into nostril 3 L/min(Oxygen) continuous [...] as of this encounter (statuses as of 12/15/2024) Active Problems Problem Noted Date Diagnosed Date [...] as of this encounter (statuses as of 12/15/2024) Resolved Problems Problem Noted Date Diagnosed Date [...] as of this encounter (statuses as of 12/15/2024) Immunizations Name Administration Dates Next Due COVID-19 mRNA, LNP-s, No Pre serve, 2-Dose Series ([employer]) 08/14/2021,12/11/2020,11/13/2020 COVID-19, LNP-s, No Preserve , Neal-sucrose, Ages 12+ (Pfizer) 04/22/2022 COVID-19, MRNA-LNP, PF, 30 M CG/0.3 mL, 12 YRS AND ABOVE, IM ([facility] 07/12/2024 Covid-19, Mrna, Lnp-s, Pf, B ivalent, 30 Mcg, IM, 12 yrs and above (Qnekt) 10/07/2022 Pneumococcal Conjugate Vacc, 13 Valent (Prevnar) 01/31/2015 Pneumococcal Conjugate Vacci ne, 20-valent ([id number]) 07/12/2024 RSV Vac., Bivalent, Perfusio n F, [...] encounter Miscellaneous Notes * Telephone Encounter - Missy Vasquez positive printer operator - 12/15/2024 12:48 PM EDT Patient calling in regarding Tramadol. This was last prescribed by PCP office, transferring caller to Medication Refill Line for further assistance. Thank you, Missy Vasquez Casket Trimmer I [facility] ([facility]) 12/15/2024,12:48 PM documented in this encounter Plan of Treatment Upcoming Encounters Date Type Department Care Team (Late st Contact Info) Description 02/07/2025 1:40 PM EDT Office Visit Family Practice [address] [place] [address] 293 [place] [address] Teofilo Krishnamurthy, [address] [place] [address] 02/14/2025 1:40 PM EDT Office Visit Family Practice [address] [place] [address] 293 [place] [address] Teofilo Krishnamurthy, [address] [place] [address] 02/22/2025 10:40 AM EDT Office Visit Rheumatology [facility] [address] [place] [phone] Best Wilkins MD [address] [facility] [place] [address] Health Maintenance Due Date Last Done Comments [...] D LEVEL ONCE IN A LIFETIME-USE SMARTSET# [id number] Completed 08/12/2022, 02/08/2018, 04/26/2014, Additional history exists [...] this encounter Medical Devices Implanted Type Area Clerical Methods Analyst Device Identifier Shelf Expiration Date Model / Serial / Lot Fidel Bio Composite X5 - [id number] Implanted:Qty: 3 on 07/02/2017 by Gael Stratton MD at OR [facility] Left: Shoulder [employer] 02/01/2019 AR-1927BCF / / [id number] [place] Pushlock 4.5x24mm - [id number] Implanted:Qty: 3 on 07/02/2017 by Gael Stratton MD at OR [facility] Left: Shoulder [employer] 02/01/2019 AR-1922BC / / [id number] Lens Intraoc 19.0 - [id number] - [id number] Implanted:Qty: 1 on 12/26/2021 by Saurav Cohen MD at OR [facility] Left: Eye [employer]OM[employer] 10/04/2026 [id number] / [id number] / [id number] Lens Intraoc 19.0 - [id number] - [id number] Implanted:Qty: 1 on 01/09/2022 by Saurav Cohen MD at OR [facility] Right: Eye [employer]OM[employer] 10/04/2026 [id number] / [id number] / [id number] documented as of this encounter Care Teams Product Marketing Consultant Relationship Specialty Start Date End Date Teofilo Krishnamurthy DO [address] [place] [address] PCP - General Internal Medicine 03/17/24 documented as of this encounter
--- OUTSIDE RECORDS SUMMARY | 2025-01-03 23:47 | External Medical Summary | Summary of Care ---
Author Name Unknown Organization [facility] Address [address] [place] [address] Phone [phone] Care Team Providers Care Spouter Name Role Phone Teofilo Krishnamurthy DO Primary Care Provider [phone] Reason for Visit * Reason Onset Date Comments Appointment 11/30/2024 Encounter Details Date Type Department Care Team (Late st Contact Info) Description 11/30/2024 Telephone Family Practice 65 [facility] [place] [facility] [address] [place] [address] Teofilo Krishnamurthy DO [address] [place] [address] Appointment Allergies No known active allergiesdocumented as of this encounter (statuses as of 12/01/2024) Medications Polyethylene Glycol 3350 17 GM/SCOOP Oral [...] mouth in the morning. 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 07/12/2024 Covid-19, Mrna, Lnp-s, Pf, B ivalent, 30 Mcg, IM, 12 yrs and above ([employer]) 10/07/2022 Pneumococcal Conjugate Vacc, 13 Valent (Prevnar) 01/31/2015 Pneumococcal Conjugate Vacci ne, 20-valent ([id number]) 07/12/2024 RSV Vac., Bivalent, Perfusio n F, [...] encounter Miscellaneous Notes * Telephone Encounter - Renu Doyle OSA - 12/01/2024 11:03 AM EST Patient scheduled and had to schedule a phone med rec because she didn't have anything. * Telephone Encounter - Opal Trivedi LPN - 12/01/2024 10:26 AM EST Please call patient and schedule hospital follow up 12/12 at 1 PM please ensure hospital follow up and also schedule pharmacy appt Thank you * Telephone Encounter - Megan Puckett OSA - 11/30/2024 2:30 PM EST Patient needs a HD appt and nothing available until December 19. Please advise. Discharged from [place] 2.25.25 for flu, cracked ribs. documented in this encounter Plan of Treatment Upcoming Encounters Date Type Department Care Team (Late st Contact Info) Description 12/06/2024 10:00 AM EST Scheduled Telephone Family Practice 65 [facility] 293 [place] [phone] Opal Preston RN 293 [place] [phone] 12/08/2024 10:00 AM EST Telemedicine Family Practice 65 [facility] [address] [place] [phone] College, Pharmacist [address] [place] [address] 12/12/2024 1:00 PM EDT Office Visit Family Practice [address] [place] [address] 293 [place] [phone] Teofilo Krishnamurthy, 293 [facility] [address] 02/14/2025 1:40 PM EDT Office Visit Family Practice [address] [place] [address] 293 [place] [phone] Teofilo Krishnamurthy, 293 [facility], [place] [address] 02/22/2025 10:40 AM EDT Office Visit Rheumatology [facility] [address] [place] [phone] Best Wilkins MD [address] [place] [address] Health Maintenance Due Date Last Done Comments [...] D LEVEL ONCE IN A LIFETIME-USE SMARTSET# 13726 Completed 08/12/2022, 02/08/2018, 04/26/2014, Additional history exists [...] this encounter Medical Devices Implanted Type Area Patent Drafter Device Identifier Shelf Expiration Date Model / Serial / Lot Mojganw Bio Composite X5 - [id number] Implanted:Qty: 3 on 07/02/2017 by Gael Stratton MD at OR [facility] Left: Shoulder [employer] 02/01/2019 AR-1927BCF / / [id number] [place] Pushlock 4.5x24mm - [id number] Implanted:Qty: 3 on 07/02/2017 by Gael Stratton MD at OR [facility] Left: Shoulder [employer] 02/01/2019 AR-1922BC / / [id number] Lens Intraoc 19.0 - [id number] - [id number] Implanted:Qty: 1 on 12/26/2021 by Saurav Cohen MD at OR [facility] Left: Eye [employer] 10/04/2026 [id number] / [id number] / [id number] Lens Intraoc 19.0 - [id number] - [id number] Implanted:Qty: 1 on 01/09/2022 by Saurav Cohen MD at OR [facility] Right: Eye [employer]CH [employer] LOMB 10/04/2026 [id number] / [id number] / [id number] documented as of this encounter Care Teams Spouter Relationship Specialty Start Date End Date Teofilo Krishnamurthy DO [address] [place] [address] PCP - General Internal Medicine 03/17/24 documented as of this encounter
--- OUTSIDE RECORDS SUMMARY | 2025-01-03 23:47 | External Medical Summary | Summary of Care ---
Author Name Unknown Organization [facility] Address [address] [place] [address] Phone [phone] Care Team Providers Care Art Supervisor Name Role Phone Teofilo Krishnamurthy DO Primary Care Provider [phone] Reason for Visit * Reason Onset Date Comments Follow Up 12/08/2024 Encounter Details Date Type Department Care Team (Late st Contact Info) Description 12/08/2024 11:00 AM EST Scheduled Telephone Family Practice 65 [facility] [place] [address] [place] [address] Opal Preston RN [address] [place] [address] Allergies No known active allergiesdocumented [...] by mouth every evening. 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 [...] mRNA, LNP-s, No Pre serve, 2-Dose Series ([employer]) 08/14/2021,12/11/2020,11/13/2020 COVID-19, LNP-s, No Preserve , Neal-sucrose, Ages 12+ (Pfizer) 04/22/2022 COVID-19, MRNA-LNP, PF, 30 M CG/0.3 mL, 12 YRS AND ABOVE, IM ([facility]) 07/12/2024 Covid-19, Mrna, Lnp-s, Pf, B ivalent, 30 Mcg, IM, 12 yrs and above ([employer]) 10/07/2022 Pneumococcal Conjugate Vacc, 13 Valent (Prevnar) 01/31/2015 Pneumococcal Conjugate Vacci ne, 20-valent ([id number]) 07/12/2024 RSV Vac., Bivalent, Perfusio n F, [...] Telephone Encounter - Opal Preston RN - 12/08/2024 3:23 PM EST IMMANUEL #2 Phone visit for post hospital d/c [facility] Dx: Generalized weakness Acute hypoxemic respiratory failure Influenza A COPD Hypertension GERD Dates of stay: 11/25/2024-11/29/2024 Current Concerns/Problems: pt states he is doing ok. He finished his antibiotic and his steroids. Spoke with pharmacist earlier today. He remains tired and weak-but it hasn't worsened. Has f/u appt with Dr Krishnamurthy on . He continues with left rib pain=hasn't worsened. Denies SOB, difficulty breathing, chest pain. Using flutter device, incentive spirometer not working. Did get the lidocainepatches-uses at night. Uses tramadol as needed for discomfort. Pt declines need for further f/u calls. CV/PULM: Reports: Denies problems History of COPD group B Fever? no Shortness of breath? no Chest Pain? no Appetite: Denies problems Nausea/Vomiting/Diarrhea? none Dizziness/Lightheadedness? no Sleep: Problematic states has had issues for over a year-nothing new Elimination: Denies problems Pain: : Location: left rib area-using tramadol-minimal help Wound: Denies Mobility: No restrictions-uses walker as needed Vitals: n/a Weight: n/a D/C Instructions received and understood? N/a Medications Reviewed? No-spoke with pharmacist earlier today Medications Changes during hospitalization: NEW: Doxycycline 100 mg q AM x 5 days Prednisone 10 mg 4 tabs x 1 days, 3 tabs x 2 days, 2 tabs x 2 days, 1 tab x 2 days Mucinex 600 mg bid x 5 days Tramadol 50 mg q 8 hrs prn severe pain (7-10) Oseltamivir 75 mg qd-never got filled Lidoderm patch-OTC prn pain left ribs R/X Obtained: Yes Post hospital appt scheduled: Yes 12/12/24 Other Services/Equipment Coordinated: N/A Patient Education: Is patient care managed? no Care Management referral placed? no CM needs: Does the patient have adequate food, water and assisted? yes I reinforced how to reach 65 Forward triage after hours, weekends and holidays by calling clinic phone # documented in this encounter Plan of Treatment Upcoming Encounters Date Type Department Care Team (Late st Contact Info) Description 12/12/2024 1:00 PM EDT Office Visit Family Practice [address] [place] [address] [address] [place] [address] Teofilo Krishnamurthy, [address] [place] [address] 02/14/2025 1:40 PM EDT Office Visit [address] [place] [address] Teofilo Krishnamurthy, [address] [place] [address] 02/22/2025 10:40 AM EDT Office Visit Rheumatology [facility] [address] [place] [phone] Best Wilkins MD [address] [place] [address] Health Maintenance Due Date Last Done Comments [...] D LEVEL ONCE IN A LIFETIME-USE SMARTSET# 11676 Completed 08/12/2022, 02/08/2018, 04/26/2014, Additional history exists [...] this encounter Medical Devices Implanted Type Area Police Chief Device Identifier Shelf Expiration Date Model / Serial / Lot [place]artinaw Bio Composite X5 - [id number] Implanted:Qty: 3 on 07/02/2017 by Gael Stratton MD at OR [facility] Left: Shoulder [employer] 02/01/2019 AR-1927BCF / / [id number] [place] Pushlock 4.5x24mm - [id number] Implanted:Qty: 3 on 07/02/2017 by Gael Stratton MD at OR [facility] Left: Shoulder [employer] 02/01/2019 AR-1922B / / [id number] Lens Intraoc 19.0 - [id number] - [id number] Implanted:Qty: 1 on 12/26/2021 by Saurav Cohen MD at OR [facility] Left: Eye [employer] 10/04/2026 [id number] / [id number] / [id number] Lens Intraoc 19.0 - [id number] - [id number] Implanted:Qty: 1 on 01/09/2022 by Saurav Cohen MD at OR [facility] Right: Eye [employer]OM[employer] 10/04/2026 [id number] / [id number] / [id number] documented as of this encounter Care Teams Art Supervisor Relationship Specialty Start Date End Date Teofilo Krishnamurthy DO [address] [place] [address] PCP - General Internal Medicine 03/17/24 documented as of this encounter
--- OUTSIDE RECORDS SUMMARY | 2025-01-03 23:47 | External Medical Summary | Summary of Care ---
Author Name Unknown Organization [facility] Address [address] [place] [address] Phone [phone] Care Team Providers Care Bakery Deliverer Name Role Phone Teofilo Krishnamurthy DO Primary Care Provider [phone] Reason for Visit * Reason Onset Date Comments Follow Up 12/06/2024 Encounter Details Date Type Department Care Team (Late st Contact Info) Description 12/06/2024 10:00 AM EST Scheduled Telephone Family Practice 65 [facility] [place] [address] [place] [address] Opal Preston, PAPA [address] [place] [address] Allergies No known active allergiesdocumented as of this encounter (statuses as of 12/07/2024) Medications Polyethylene Glycol 3350 17 GM/SCOOP Oral [...] mouth in the morning. 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 ([facility]) Administer into nostril 3 L/min(Oxygen) continuous [...] as of this encounter (statuses as of 12/07/2024) Active Problems Problem Noted Date Diagnosed Date [...] as of this encounter (statuses as of 12/07/2024) Resolved Problems Problem Noted Date Diagnosed Date [...] as of this encounter (statuses as of 12/07/2024) Immunizations Name Administration Dates Next Due COVID-19 mRNA, LNP-s, No Pre serve, 2-Dose Series ([employer]) 08/14/2021,12/11/2020,11/13/2020 COVID-19, LNP-s, No Preserve , Neal-sucrose, Ages 12+ (Pfizer) 04/22/2022 COVID-19, MRNA-LNP, PF, 30 M CG/0.3 mL, 12 YRS AND ABOVE, IM ([facility]) 07/12/2024 Covid-19, Mrna, Lnp-s, Pf, B ivalent, 30 Mcg, IM, 12 yrs and above ([employer]) 10/07/2022 Pneumococcal Conjugate Vacc, 13 Valent (Prevnar) 01/31/2015 Pneumococcal Conjugate Vacci ne, 20-valent ([id number]) 07/12/2024 RSV Vac., Bivalent, Perfusio n F, [...] No 11/09/2023 Does the household have a [facility] source of income? (Household - for ages [...] Telephone Encounter - Opal Preston RN - 12/06/2024 11:40 AM EST IMMANUEL #2 Phone visit for post hospital d/c [facility] Dx: Generalized weakness Acute hypoxemic respiratory failure Influenza A COPD Hypertension GERD Dates of stay: 11/25/2024-11/29/2024 Call to pt-no answer-message left to call back at [phone] documented in this encounter Plan of Treatment Upcoming Encounters Date Type Department Care Team (Late st Contact Info) Description 12/07/2024 3:15 PM EST Scheduled Telephone Family Practice [address] [place] [address] [place] [address] Opal Preston, PAPA [address] [place] [address], [place] [phone] 12/08/2024 10:00 AM EST Telemedicine Family Practice [address] [place] [address] [address] [place] [phone] College, Pharmacist [address] [place] [address] 12/12/2024 1:00 PM EDT Office Visit Family Practice [address] [place] [address] [address] [place] [phone] Teofilo Krishnamurthy, 293 [place] [address] 02/14/2025 1:40 PM EDT Office Visit Family Practice [address] [place] [address] [address] [place] [phone] Teofilo Krishnamurthy, [address] [place] [address] 02/22/2025 10:40 AM EDT Office Visit Rheumatology [facility] [address] [place] [phone] Best Wilkins MD [address] [place] [address] Health Maintenance Due Date Last Done Comments [...] D LEVEL ONCE IN A LIFETIME-USE SMARTSET# 36796 Completed 08/12/2022, 02/08/2018, 04/26/2014, Additional history exists [...] this encounter Medical Devices Implanted Type Area Supervisor Packing Device Identifier Shelf Expiration Date Model / Serial / Lot Fidel Bio Composite X5 - [id number] Implanted:Qty: 3 on 07/02/2017 by Gael Stratton MD at OR [facility] Left: Shoulder [employer] 02/01/2019 AR-1927BCF / / [id number] [place] Pushlock 4.5x24mm - [id number] Implanted:Qty: 3 on 07/02/2017 by Gael Stratton MD at OR [facility] Left: Shoulder [employer] 02/01/2019 AR-1922BC / / [id number] Lens Intraoc 19.0 - [id number] - [id number] Implanted:Qty: 1 on 12/26/2021 by Saurav Cohen MD at OR [facility] Left: Eye [employer]OM[employer] 10/04/2026 [id number] / [id number] / [id number] Lens Intraoc 19.0 - [id number] - [id number] Implanted:Qty: 1 on 01/09/2022 by Saurav Cohen MD at [facility] Right: Eye [employer] 10/04/2026 [id number] / [id number] / [id number] documented as of this encounter Care Teams Bakery Deliverer Relationship Specialty Start Date End Date Teofilo Krishnamurthy DO [address] [place] [address] PCP - General Internal Medicine 03/17/24 documented as of this encounter
--- OUTSIDE RECORDS SUMMARY | 2025-01-03 23:47 | External Medical Summary | Summary of Care ---
Author Name Unknown Organization [facility] Address [address] [place] [address] Phone [phone] Care Team Providers Care Visual Presentation Manager Name Role Phone Teofilo Krishnamurthy DO Primary Care Provider [phone] Reason for Referral * Evaluate & Treat - Unlimited Visits (Within 10 days (routine)) - Authorized Specialty Diagnoses / Procedures Referred By Fito phelan Referred To Contact Physical Therapy / Physical Medicine And Rehab Diagnoses Generalized weakness Closed fracture of multiple ribs of left side with routine healing, subsequent encounter Degeneration of intervertebral disc of lumbar region with discogenic back pain Teofilo Krishnamurthy DO [address] [place] [address] Phone: tel: fax: Referral ID Status Reason Start Date Expiration Date Visits Requested Visits Authorized [id number] Authorized Specialty Services Required 12/12/[phone] Question Answer Referral Priority Within 10 days (routine) Where should this appointment be scheduled? Sid Reason for Visit * Reason Onset Date Comments Follow Up Hospital Follow-Up Hospital Follow-Up 12/12/2024 Encounter Details Date Type Department Care Team (Latest Contact Info) Description 12/12/2024 1:00 PM EDT Office Visit Family Practice [facility] [place] [address] [place] [phone] Teofilo Krishnamurthy DO [address] [place] [address] Acute on chronic respiratory failure with hypoxia ([facility])*; Generalized weakness; Influenza A; Closed fracture of multiple ribs of left side with routine healing, subsequent encounter; COPD, group B, by GOLD 2017 classification ([facility]); Other atherosclerosis of houlton arteries of extremities, bilateral legs ([facility]); HTN, goal below 150/90; Degeneration of intervertebral disc of lumbar region with discogenic back pain; MCI (mild cognitive impairment); Aortic mural thrombus ([facility]); OAB (overactive bladder); Obstructive sleep apnea of adult; Secondary erythrocytosis; BPH with obstruction/lower urinary tract symptoms; B12 deficiency; Hospital discharge follow-up Allergies No known active allergiesdocumented as of [...] by mouth every evening. Active oxygen IN GASIndications:COMMERCIAL LOAN COORDINATOR D, group B, by GOLD 2017 classification ([facility]) Administer into nostril 3 L/min(Oxygen) continuous [...] update of inactive term Elevated hemoglobin 01/31/2019 08/10/20 20 Post herpetic neuralgia 10/19/201701/04 Senile osteoporosis [...] mRNA, LNP-s, No Pre serve, 2-Dose Series ([employer]) 08/14/2021,12/11/2020,11/13/2020 COVID-19, LNP-s, No Preserve , Neal-sucrose, Ages 12+ (Pfizer) 04/22/2022 COVID-19, MRNA-LNP, PF, 30 M CG/0.3 mL, 12 YRS AND ABOVE, IM ([facility] 07/12/2024 Covid-19, Mrna, Lnp-s, Pf, B ivalent, 30 Mcg, IM, 12 yrs and above ([employer]) 10/07/2022 Pneumococcal Conjugate Vacc, 13 Valent (Prevnar) 01/31/2015 Pneumococcal Conjugate Vacci ne, 20-valent ([id number]) 07/12/2024 RSV Vac., Bivalent, Perfusio n F, [...] Sign Reading Time Taken Comments Blood Pressure 120/64 12/12/2024 1:15 PM EDT Pulse 76 12/12/2024 1:15 PM EDT Temperature 36.7 °C (98.1 °F) 12/12/2024 1:15 PM ED T Respiratory Rate 20 12/12/2024 1:15 PM EDT Oxygen Saturation 93% 12/12/2024 1:15 PM EDT Inhaled Oxygen Concentration - - Weight 84.6 kg (186 lb 9.6 oz) 12/12/2024 1:15 P M EDT Height 174.6 cm (5' 8.75") 12/12/2024 1:15 PM ED T Body Mass Index 27.76 12/12/2024 1:15 PM EDT documented in this encounter Progress Notes * Teofilo Krishnamurthy, DO - 12/12/2024 1:42 PM EDT SUBJECTIVE: Emmanuel Hung is a 84 year old male. Chief Complaint Patient presents with Follow Up Hospital Follow-Up Hospital Follow-Up Recent Admission: Patient was recently admitted to [facility]. The date of discharge was 11/29/2924.Discharge report received and reviewed. 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 The patient was admitted to [facility] from 11/25/2024-11/29/2024 after falling. The patient was admitted for acute on chronic respiratory failure due to Influenza A, and generalized weakness. He has chronic hypoxia and wears oxygen 3 liters at all times. He fractured leftribs 8-10 from fall. He continues to have weakness and ambulates with a walker. No further falls. Chronic shortness of breath is stable. No chest pain. Patient had mural thrombus of abdominal aorta without AAA on CT scan. Chronic back pain is unchanged and does not radiate to the legs. Weight is down and appetite is good. 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 MCI (mild cognitive impairment) Gastroesophageal reflux disease without esophagitis COPD, group B, by GOLD 2017 classification ([facility]) Lumbar degenerative disc disease B12 deficiency OAB (overactive bladder) Chronic respiratory failure with hypoxia ([facility]) PAUL (generalized anxiety disorder) Other atherosclerosis of houlton arteries of extremities, bilateral legs ([facility]) Senile osteoporosis Current Outpatient Medications Medication Sig Dispense Refill Polyethylene Glycol 3350 17 GM/SCOOP Oral Powder Take 17 g by mouth every evening. Dissolve one heaping tablespoon in 8 ounces of water or juice. 1 Bottle 2 Wheat Dextrin (BENEFIBER) powder Take by mouth every evening. Cyanocobalamin (VITAMIN B-12) 1000 MCG Tablet Take [...] Take 1 Tablet by mouth every evening. oxygen IN GAS Administer into nostril 3 [...] BY MOUTH BEFORE BEDTIME 90 Capsule 5 Classics Rolling Walker Use as directed. Light, seat with brakes. 1 Each 0 Losartan Potassium 25 MG Oral Tablet (Cozaar) TAKE ONE TABLET BY MOUTH IN THE MORNING 100 Tablet 1 Donepezil HCl 10 MG Oral Tablet (Aricept) TAKE ONE TABLET BY MOUTH BEFORE BEDTIME WITH LARGEST MEALOF THE DAY 100 Tablet 3 Mirtazapine 7.5 MG Oral Tablet (Remeron) TAKE 1 TABLET BY MOUTH AT BEDTIME 90 Tablet 1 Trelegy Ellipta 100-62.5-25 MCG/ACT Aerosol Powder Breath Activated (Sgflllhuzhp-Igfshhjvzceb-Qkzdytqzrm) Inhale 1 Puff by mouth daily 180 Each 0 traMADol HCl 50 MG Oral Tablet (Ultram) TAKE 1 TABLET BY MOUTH 2 TIMES A DAY NEEDED FOR PAIN, SEVERE. 60 Tablet 0 Lidocaine 4 % External Patch (Aspercreme) Place 1 Patch topically on the skin daily. As needed for rib pain guaiFENesin ER 600 MG Oral Tablet Extended Release 12 Hour (Mucinex) Take 1 Tablet by mouth in the morning and 1 Tablet before bedtime. X 5 days. (Patient not taking: Reported on 12/12/2024) No current facility-administered medications for this visit. Current and discharge medications have been reconciled. Review of patient's allergies indicates: No Known Allergies OBJECTIVE: BP 120/64 (BP Site: Left Arm, BP Position: Sitting, BP Cuff Size: Regular) | Pulse 76 | Temp 98.1 °F (36.7 °C) (Tympanic) | Resp 20 | Ht 5' 8.75" (1.746 m) | Wt 186 lb 9.6 oz (84.6 kg) | SpO2 93% |BMI 27.76 kg/m² | BSA 2.03 m² REVIEW OF SYSTEMS: Review of Systems Constitutional: Positive for fatigue and unexpected weight change. Negative for appetite change, chills and fever. HENT: Negative for congestion, sore throat and trouble swallowing. Respiratory: Positive for cough and shortness of breath. Negative for wheezing. Cardiovascular: Negative for chest pain, palpitations and leg swelling. Gastrointestinal: Negative for abdominal pain, blood in stool, constipation, diarrhea, nausea and vomiting. Genitourinary: Negative for dysuria, frequency and hematuria. Musculoskeletal: Positive for arthralgias, back pain and gait problem. Neurological: Positive for weakness. Negative for dizziness, syncope and headaches. Psychiatric/Behavioral: Positive for decreased concentration. Negative for confusion, dysphoric mood and sleep disturbance. PHYSICAL EXAM: BP 120/64 (BP Site: Left Arm, BP Position: Sitting, BP Cuff Size: Regular) | Pulse 76 | Temp 98.1 °F (36.7 °C) (Tympanic) | Resp 20 | Ht 5' 8.75" (1.746 m) | Wt 186 lb 9.6 oz (84.6 kg) | SpO2 93% |BMI 27.76 kg/m² | BSA 2.03 m² Physical Exam Vitals and nursing note reviewed. Constitutional: General: He is not in acute distress. Appearance: He is not toxic-appearing. Comments: Frail and elderly HENT: Head: Normocephalic and atraumatic. Cardiovascular: Rate and Rhythm: Normal rate and regular rhythm. Heart sounds: Normal heart sounds. No murmur heard. No gallop. Pulmonary: Effort: Pulmonary effort is normal. Breath sounds: Normal breath sounds. No wheezing or rhonchi. Abdominal: General: Bowel sounds are normal. There is no distension. Tenderness: There is no abdominal tenderness. Musculoskeletal: Right lower leg: No edema. Left lower leg: No edema. Neurological: Mental Status: He is alert. Mental status is at baseline. Motor: Weakness present. Gait: Gait abnormal. Psychiatric: Cognition and Memory: Cognition is impaired. Memory is impaired. ASSESSMENT?PLAN Acute on chronic respiratory failure with hypoxia (HCC) (Primary) Acuter respiratory failure resolved post treatment with Tamiflu and Prednisone taper Continue Oxygen 3 L Generalized weakness - PHYSICAL THERAPY REFERRAL OP Influenza A Resolved Closed fracture of multiple ribs of left side with routine healing, subsequent encounter - PHYSICAL THERAPY REFERRAL OP Continue Tramadol, Lidocaine patch, and Acetaminophen COPD, group B, by GOLD 2017 classification (HCC) Continue Oxygen, and trelegy Other atherosclerosis of houlton arteries of extremities, bilateral legs (HCC) HTN, goal below 150/90 Continue Losartan, and Amlodipine Degeneration of intervertebral disc of lumbar region with discogenic back pain - PHYSICAL THERAPY REFERRAL OP Continue tramadol MCI (mild cognitive impairment) Continue Donepezil Aortic mural thrombus (HCC) Not an indication for anticoagulation OAB (overactive bladder) Obstructive sleep apnea of adult 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 Teofilo Krishnamurthy DO documented in this encounter Nursing Notes * Bessy Herndon LPN - 12/12/2024 1:11 PM EDT Patient here for hospital d/c follow up visit. Pt hospitalized at [facility] after fall and for hypoxia. Reports ongoing rib pain. States very weak, having difficulty walking. Not receiving therapy. documented in this encounter Plan of Treatment Upcoming Encounters Date Type Department Care Team (Late st Contact Info) Description 02/07/2025 1:40 PM EDT Office Visit [address] [place] [address] Teofilo Krishnamurthy, [address] [place] [address] 02/14/2025 1:40 PM EDT Office Visit [address] [place] [address] Teofilo Krishnamurthy, [address] [place] [address] 02/22/2025 10:40 AM EDT Office Visit Rheumatology [facility] [address] [place] [phone] Best Wilkins MD [address] [place] [address] Scheduled Referrals Name Type Priority Associated Diagnoses Orde r Schedule PHYSICAL THERAPY REFERRAL OP Referral Within 10 days (routine) Generalized weakness Closed fracture of multiple ribs of left side with routine healing, subsequent encounter Degeneration of intervertebral disc of lumbar region with discogenic back pain Ordered: 12/12/2024 Health Maintenance Due Date Last Done Comments [...] COPD 12/12/2025 12/12/2024 DXA Scan 02/21/2026 02/22/2024, /04/2018, 07/21/2016, Additional history exists DTap/Tdap Vaccines (3 - Td or Tdap) 09/11/2030 09/11/2020, 04/23/2015, 02/04/2006 Zoster Vaccines Completed 02/17/2020, 11/06, 04/14/2012 VITAMIN D LEVEL ONCE IN A LIFETIME-USE SMARTSET# [id number] Completed 08/12/2022, 02/08/2018, 04/26/2014, Additional history exists [...] this encounter Medical Devices Implanted Type Area Machine Shop Specialist Device Identifier Shelf Expiration Date Model / Serial / Lot Mojganw Bio Composite X5 - [id number] Implanted:Qty: 3 on 07/02/2017 by Gael Stratton MD at OR [facility] Left: Shoulder [employer] 02/01/2019 [id number]-1927BCF / / [id number] Pushlock 4.5x24mm - [id number] Implanted:Qty: 3 on 07/02/2017 by Gael Stratton MD at OR [facility] Left: Shoulder [employer] 02/01/2019 [id number]-[id number] / / [id number] Lens Intraoc 19.0 - [id number] - [id number] Implanted:Qty: 1 on 12/26/2021 by Saurav Cohen MD at OR [facility] Left: Eye [employer] 10/04/2026 [id number] / [id number] / [id number] Lens Intraoc 19.0 - [id number] - [id number] Implanted:Qty: 1 on 01/09/2022 by Saurav Cohen MD at OR [facility] Right: Eye [employer] 10/04/2026 [id number] / [id number] / [id number] documented as of this encounter Visit Diagnoses Diagnosis Acute on chronic respiratory failure with hypoxia (HCC)- Primary Generalized weakness Other malaise and fatigue Influenza A Influenza with other respiratory manifestations Closed fracture of multiple ribs of left side with routine healing, subsequent encounter COPD, group B, by GOLD 2017 classification (HCC) Other atherosclerosis of houlton arteries of extremities, bilateral legs (HCC) HTN, goal below 150/90 Degeneration of intervertebral disc of lumbar region with discogenic back pain MCI (mild cognitive impairment) Mild cognitive impairment, so stated Aortic mural thrombus (HCC) Embolism and thrombosis of thoracic aorta OAB (overactive bladder) Hypertonicity of bladder Obstructive sleep apnea of adult Obstructive sleep apnea (adult) (pediatric) Secondary erythrocytosis Polycythemia, secondary BPH with obstruction/lower urinary tract symptoms Hypertrophy of prostate with urinary obstruction and other lower urinary tract symptoms (LUTS) B12 deficiency Other B-complex deficiencies Hospital discharge follow-up Other follow-up examination documented in this encounter Care Teams Visual Presentation Manager Relationship Specialty Start Date End Date Teofilo Krishnamurthy DO [address] [place] [address] PCP - General Internal Medicine 03/17/24 documented as of this encounter
--- OUTSIDE RECORDS SUMMARY | 2025-01-03 23:48 | External Medical Summary | Summary of Care ---
Author Name Unknown Organization [facility] Address [address] [place] [address] Phone [phone] Care Team Providers Care Telecommunications Facility Examiner Name Role Phone Teofilo Krishnamurthy DO Primary Care Provider [phone] Reason for Visit * Reason Onset Date Comments Hospital Follow-Up 11/30/2024 Encounter Details Date Type Department Care Team (Late st Contact Info) Description 11/30/2024 9:15 AM EST Scheduled Telephone Family Practice [address] [facility] [address] [place] [address] Opal Preston RN [address] [place] [address] Allergies No known active allergiesdocumented [...] mouth in the morning. Active oxygen IN GASIndications:RAG WASHER D, group B, by GOLD 2017 classification ([facility] [...] mRNA, LNP-s, No Pre serve, 2-Dose Series ([employer]) 08/14/2021,12/11/2020,11/13/2020 COVID-19, LNP-s, No Preserve , Neal-sucrose, Ages 12+ (Pfizer) 04/22/2022 COVID-19, MRNA-LNP, PF, 30 M CG/0.3 mL, 12 YRS AND ABOVE, IM ([facility] [facility]) 07/12/2024 Covid-19, Mrna, Lnp-s, Pf, B ivalent, 30 Mcg, IM, 12 yrs and above ([employer]) 10/07/2022 Pneumococcal Conjugate Vacc, 13 Valent (Prevnar) 01/31/2015 Pneumococcal Conjugate Vacci ne, 20-valent ([id number]) 07/12/2024 RSV Vac., Bivalent, Perfusio n F, [...] No 11/09/2023 Does the household have a [facility] source of income? (Household - for ages [...] Telephone Encounter - Opal Preston RN - 11/30/2024 2:56 PM EST IMMANUEL #1 Phone visit for post hospital d/c [facility] Dx: Generalized weakness Acute hypoxemic respiratory failure Influenza A COPD Hypertension GERD Dates of stay: 11/25/2024-11/29/2024 Current Concerns/Problems: Pt states he is doing Ok. Has discomfort in left rib area-hurts to take deep breath, with movement and when coughing/hiccups. He is using the incentive spirometer and flutter device. Has cough but its not bad-dry cough. Denies SOB/difficulty breathing, chest pain. He is tired. He is taking the antibiotic doxycycline 1-- mg q AM x 5 days and the prednisone tapering dose.States the pharmacy is getting the oseltamivir ready for him-had to contact the hospital doctor forclarification of rx. He is using mucinex 600 mg bid x 5 days for cough. He is using tramadol 50 mg q 8 hr prn for severe pain. He will picker box operator the lidocaine patch. CV/PULM: Reports: Denies problems History of COPD group B Fever? no Shortness of breath? no Chest Pain? no Appetite: Denies problems Nausea/Vomiting/Diarrhea? none Dizziness/Lightheadedness? no Sleep: Problematic states hard to sleep-hard to get comfortable Elimination: Denies problems Pain: Location: left rib area-using tramadol-minimal help Wound: Denies Mobility: No restrictions-uses walker prn Vitals: n/a Weight: n/a D/C Instructions received and understood? Yes Medications Reviewed? yes Medications Changes during hospitalization: NEW: Doxycycline 100 mg q AM x 5 days Prednisone 10 mg 4 tabs x 1 days, 3 tabs x 2 days, 2 tabs x 2 days, 1 tab x 2 days Mucinex 600 mg bid x 5 days Tramadol 50 mg q 8 hrs prn severe pain (7-10) Oseltamivir 75 mg qd Lidoderm patch-OTC prn pain left ribs R/X Obtained: Yes-except oseltamivir-see above Post hospital appt scheduled: No front end wheel loader operator working on scheduling Other Services/Equipment Coordinated: N/A Patient Education: Is patient care managed? no Care Management referral placed? no CM needs: Does the patient have adequate food, water and senior care? yes I reinforced how to reach [address] Forward triage after hours, weekends and holidays by calling clinic phone # [phone] [place] Report Date of Fall:11/25/2024 Time of Fall: mid morning fall#1-no injury, evening was fall #2 Patient Name: Emmanuel Hung Location of Fall: Bathroom Factors Involved in Falls: Other: pt was ill-was weak and fatigued-states just fell-did not pass out or hit head Description of Fall:fell onto left side What was the patient doing before the fall?went into bathroom to get something Describe positioning on the floor:landed on left side Fall Category: Fall-assisted to floor Fall Witnessed: No Did patient use First Alert or Lifeline?No EMS Response:Yes At time of the fall were there any injuries apparent? Yes If yes, area of injury:left ribs At the time of the fall, did the patient complain of pain? Yes If yes, where?left ribs Did the patient complain of dizziness?No During the fall was the patient using an assistive device? No Were any monitoring Devices in Place: Yes. N/a Was the patient wearing Appropriate Footwear:Yes Was patient assisted in getting up? Yes If yes, by whom? EMS Previous Interventions: n/a Compliance with interventions: n/a Number of falls in the past month: 2 Number of falls in the past 6 months: 2 Recommendations: Balance Assessment [facility] [address] [place] [address] 11/30/2024 documented in this encounter Plan of Treatment Upcoming Encounters Date Type Department Care Team (Late st Contact Info) Description 12/06/2024 10:00 AM EST Scheduled Telephone [address] [place] [address] Opal Preston, PAPA [address] [facility] [place] [address] 02/14/2025 1:40 PM EDT Office Visit [address] [facility] [facility] [address] Teofilo Krishnamurthy DO [address] [facility] [place] [address] 02/22/2025 10:40 AM EDT Office Visit Rheumatology [facility] [address] [place] [phone] Best Wilkins MD [address] [facility] [place] [address] Health Maintenance Due Date Last Done Comments [...] D LEVEL ONCE IN A LIFETIME-USE SMARTSET# [id number] Completed 08/12/2022, 02/08/2018, 04/26/2014, Additional history exists [...] encounter Medical Devices Implanted Type Area Police Stenographer Device Identifier Shelf Expiration Date Model / Serial / Lot [employer] Bio [employer]posite X5 - [id number] Implanted:Qty: 3 on 07/02/2017 by Gael Stratton MD at OR [facility] Left: Shoulder [employer] 02/01/2019 AR-1927BCF / / [id number] Hartman Pushlock 4.5x24mm - [id number] Implanted:Qty: 3 on 07/02/2017 by Gael Stratton MD at OR [facility] Left: Shoulder [employer] 02/01/2019 AR-1922BC / / [id number] Lens Intraoc 19.0 - [id number] - [id number] Implanted:Qty: 1 on 12/26/2021 by Saurav Cohen MD at OR [facility] Left: Eye [employer] 10/04/2026 [id number] / [id number] / [id number] Lens Intraoc 19.0 - [id number] - [id number] Implanted:Qty: 1 on 01/09/2022 by Saurav Cohen MD at OR [facility] Right: Eye [employer] 10/04/2026 [id number] / [id number] / [id number] documented as of this encounter Care Teams Telecommunications Facility Examiner Relationship Specialty Start Date End Date Teofilo Krishnamurthy DO [address] [facility] [place] [address] PCP - General Internal Medicine 03/17/24 documented as of this encounter
[2025-01-04 06:34] LABS: Hematocrit (blood only) 42.7 % (42.0-52.0); Hemoglobin 14.2 g/dl (14.0-18.0); Mean Corpuscular Hemoglobin 32.7 pg (25.0-34.0); Mean Corpuscular Hgb Conc 33.3 g/dL (32.0-36.0); Mean Corpuscular Volume 98.4 fL (80.0-100.0); Mean Platelet Volume 11.5 fL (9.4-12.4); Platelet Count 113 K/uL (130-400); RDW Coefficient of Variation 14.3 % (11.5-14.5); RDW Standard Deviation 52.2 fL (36.4-46.3); Red Blood Count 4.34 M/uL (4.70-6.10); White Blood Count 9.88 K/ul (4.8-10.8)
[2025-01-04 06:35] LABS: BUN Creatinine Ratio 28.7 (10-20); Calcium 8.8 mg/dl (8.6-10.3); Creatinine Clr Calc Pharmacy 62.1 ml/min; Potassium 4.4 mmol/L (3.5-5.1)
[2025-01-04 06:48] LABS: Magnesium 2.1 mg/dl (1.7-2.4)
[2025-01-04] MEDS: PANTOprazole 40 MG TAB PO SCH (08:50)
[2025-01-04] MEDS: CALCIUM 600MG + VIT D 400 IU TAB PO SCH (08:50)
[2025-01-04] MEDS: TAMSULOSIN HCL 0.4 MG CAP PO SCH (08:50)
[2025-01-04] MEDS: ASCORBIC ACID 500 MG TAB PO SCH (08:51)
[2025-01-04] MEDS: LOSARTAN POTASSIUM 25 MG TAB PO SCH (08:51)
[2025-01-04] MEDS: amLODIPine BESYLATE 5 MG TAB PO SCH (08:51)
[2025-01-04] MEDS: CYANOCOBALAMIN (B-12) 500 MCG TABLET PO SCH (08:51)
[2025-01-04] MEDS: CHOLECALCIFEROL 25 MCG (1000 UNITS) TAB PO SCH (08:51)
[2025-01-04] MEDS: FINASTERIDE 5 MG TAB PO SCH (08:52)
[2025-01-04] MEDS: UMECLIDINIUM/VILANTEROL 62.5/25MCG 7 PUFFS/INHALER INH SCH (08:53)
[2025-01-04] MEDS: FLUTICASONE FUROATE 100MCG 14 PUFFS/INHALER INH SCH (08:54)
[2025-01-04] MEDS ORDERED: NON-FORMULARY MEDICATION (Fluticasone-Umeclidin-Vilanter [Trelegy Ellipta] 100-62.5-25 mcg INH SCH (09:00)
[2025-01-04] MEDS: ADVANCED PROBIOTIC 625 MG CAPSULE PO SCH (09:34)
[2025-01-04] MEDS: CEFEPIME 2000MG 2,000 MG/20 ML SYR IV SCH (09:34)
[2025-01-04] MEDS ORDERED: cefTRIAXone SODIUM 2,000 MG/50 ML BAG IV SCH (14:00)
--- NOTE | 2025-01-04 14:36 | Hospitalist Progress Note ---
Date of Service January 04, 2025 Assessment & Plan (1) Acute on chronic hypoxic respiratory failure: (2) Pneumonia: (3) COPD (chronic obstructive pulmonary disease): (4) Emphysema lung: (5) Hypertension: (6) BPH with obstruction/lower urinary tract symptoms: (7) Mild cognitive impairment: (8) ZHANE (obstructive sleep apnea): Plan per previous hospitalist notes with addendum: This is an 84yo M with PMH of PMH of COPD, chronic respiratory failure with hypoxia on baseline O2 of 2 L, obstructive sleep apnea, HTN, GERD, lumbar degenerative disc disease, B12 deficiency, overactive bladder, BPH, mild cognitive impairment who presents to the hospital with fever and cough for past few days and was found to have acute on chronic hypoxic resp failure in setting of PNA. Sepsis Acute on chronic hypoxic respiratory failure T: 39 C, WBC 13.27, procal 0.90 with PNA meeting sepsis criteria CXR right midlung and patchy right greater than left bibasilar opacities suggestive of pneumonia. Severe emphysema. Cardiomegaly without overt pulmonary edema Given Rocephin and Azithromycin in ED Giving 1 time dose of Vancomycin given recent admission for influenza A, MRSA swab pending Resp viral panel negative Continue Mucinex, incentive spirometry, flutter valve Currently saturating 93% on 7 L non-rebreather Wean O2 back to baseline 3L as tolerated 4/2 currently on 6 L NC ff up blood and sputum cultures continue Cefepime + Azithro COPD Not wheezing on exam, so prednisone not indicated to continue at this time Continue Oxygen, and Trelegy continue Mucinex, IS, FV Recent fall with multiple L sided rib fractures Healing, pain controlled with PRN Tramadol and Tylenol, lidocaine patch, Voltaren gel HTN Continue Losartan and Amlodipine MCI (mild cognitive impairment) Continue Donepezil Aortic mural thrombus Noted on CT during November admission. Not an indication for anticoagulation BPH Continue Tamsulosin and Finasteride ZHANE CPAP HS with O2 bled through DVT Ppx: SQ Lovenox Code status: FULL PCP: Raghu Dispo: lives at home PT/OT eval Admission and Anticipated Discharge Date Admission Date: January 03, 2025 Subjective ff up for sepsis, pneumonia, etc seen resting in bed, comfortable states he feels improved today breathing is improving minimal cough no chest pain no fever/chills appetite fair no other symptoms Review of Systems Review of Systems: all noted and negative except for above Physical Exam Physical Exam: General- oriented x 3, not in distress, speaks in sentences with no effort or accessory muscle use Eyes- anicteric Neck- no JVD Lungs- decreased breath sounds R base clear on the left Heart- normal rate, regular rhythm; no murmurs Abdomen- normal bowel sounds, nondistended, soft, no tenderness Extremities- no pretibial edema, no calf tenderness Neuro- alert, oriented x 3; no gross focal neurologic deficits Skin- warm & dry Results & Data Results & Data Vital Signs (Past 12 Hours) Vital Signs Temp Pulse Pulse Resp BP Pulse Ox O2 Del Method 01/04/25 11:25 36.4 C L 73 18 116/70 92 Nasal Cannula 01/04/25 11:10 50 L 01/04/25 07:19 36.3 C L 59 L 18 133/66 94 Nasal Cannula 01/04/25 02:48 50 L 18 119/75 94 BiPAP 01/04/25 02:44 65 13 95 O2 Flow Rate 01/04/25 11:25 4.0 01/04/25 11:10 01/04/25 07:19 3.0 01/04/25 02:48 01/04/25 02:44 3 all noted and reviewed including below (2) Pneumonia Laterality: right Lung location: unspecified part of lung Pneumonia type: due to unspecified organism Qualified Code(s): J18.9 - Pneumonia, unspecified organism (3) COPD (chronic obstructive pulmonary disease) COPD type: unspecified COPD Qualified Code(s): J44.9 - Chronic obstructive pulmonary disease, unspecified
[2025-01-04] MEDS: AZITHROMYCIN 500 MG/255 ML BAG IV SCH (14:55)
[2025-01-04] MEDS: ENOXAPARIN INJ 40 MG/0.4 ML SYR SQ SCH (14:55)
[2025-01-04 19:58] LABS: Appearance Urine Clear (Clear); Bacteria Urine Automated None Seen (None Seen); Bilirubin Urine Negative (Negative); Blood Urine Negative (Negative); Cast Urine Automated 0-2 /lpf (0-2); Color Urine Yellow; Epithelial Cell Urine Auto 0-2 /hpf (0-2); Glucose Urine UA Negative (Negative); Ketones Urine 1+ (Negative); Leukocyte Esterase Urine 1+ (Negative); Nitrite Urine Negative (Negative); Protein Urine 1+ (Negative); RBC Urine Automated 0-2 /hpf (0-2); Specific Gravity Urine 1.032 (1.000-1.030); Urobilinogen Urine Negative (Negative)
[2025-01-05 06:37] LABS: Hematocrit (blood only) 39.7 % (42.0-52.0); Hemoglobin 13.6 g/dl (14.0-18.0); Mean Corpuscular Hemoglobin 32.9 pg (25.0-34.0); Mean Corpuscular Hgb Conc 34.3 g/dL (32.0-36.0); Mean Corpuscular Volume 95.9 fL (80.0-100.0); Mean Platelet Volume 11.6 fL (9.4-12.4); Platelet Count 136 K/uL (130-400); RDW Standard Deviation 49.6 fL (36.4-46.3); Red Blood Count 4.14 M/uL (4.70-6.10); White Blood Count 9.29 K/ul (4.8-10.8)
[2025-01-05 07:05] LABS: BUN Creatinine Ratio 22.6 (10-20); Calcium 8.7 mg/dl (8.6-10.3); Creatinine Clr Calc Pharmacy 64.3 ml/min
--- NOTE | 2025-01-05 09:44 | XRay Report ---
XR chest 1V portable CLINICAL HISTORY: ff up pneumonia COMPARISON STUDY: 01/03/2025 FINDINGS: The patchy airspace opacity in the right lung base is progressive. Radiographic findings ar e otherwise stable consisting of atherosclerotic aortic ectasia and tortuosity and emphysema. IMPRESSION: Progressive right basilar infiltrate. ACT 112: Negative or not required by law. Electronically signed by: Sendy Waggoner M.D. 01/05/2025 9:43 AM
[2025-01-05] MEDS: traMADol HCL 50 MG TABLET PO PRN (09:50)
[2025-01-05] MEDS: ALUMINUM/MAGNESIUM SUSP 30 ML UDC PO PRN (10:38)
[2025-01-05] MEDS: LEVALBUTEROL 1.25 MG/3 ML NEB NEB SCH (12:30)
[2025-01-05] MEDS: IPRATROPIUM BROMIDE NEB SOLN 0.02% 0.5MG/2.5ML VIAL NEB SCH (12:30)
--- NOTE | 2025-01-05 12:35 | Hospitalist Progress Note ---
Date of Service January 05, 2025 Assessment & Plan (1) Acute on chronic hypoxic respiratory failure: (2) Pneumonia: (3) COPD (chronic obstructive pulmonary disease): (4) Emphysema lung: (5) Hypertension: (6) BPH with obstruction/lower urinary tract symptoms: (7) Mild cognitive impairment: (8) ZHANE (obstructive sleep apnea): Plan per previous hospitalist notes with addendum: This is an 84yo M with PMH of PMH of COPD, chronic respiratory failure with hypoxia on baseline O2 of 2 L, obstructive sleep apnea, HTN, GERD, lumbar degenerative disc disease, B12 deficiency, overactive bladder, BPH, mild cognitive impairment who presents to the hospital with fever and cough for past few days and was found to have acute on chronic hypoxic resp failure in setting of PNA. Sepsis Acute on chronic hypoxic respiratory failure T: 39 C, WBC 13.27, procal 0.90 with PNA meeting sepsis criteria CXR right midlung and patchy right greater than left bibasilar opacities suggestive of pneumonia. Severe emphysema. Cardiomegaly without overt pulmonary edema Given Rocephin and Azithromycin in ED Giving 1 time dose of Vancomycin given recent admission for influenza A, MRSA swab pending Resp viral panel negative Continue Mucinex, incentive spirometry, flutter valve Currently saturating 93% on 7 L non-rebreather Wean O2 back to baseline 3L as tolerated 4/2 currently on 6 L NC ff up blood and sputum cultures continue Cefepime + Azithro 4/3 remains on 5L NC CXR: progressive R mid-lower lobe infiltrates blood cultures: negative so far urine culture: negative so far change Cefepime to Zosyn add Nebs QID Pulm service consulted COPD Not wheezing on exam, so prednisone not indicated to continue at this time Continue Oxygen, and Trelegy continue Mucinex, IS, FV Recent fall with multiple L sided rib fractures Healing, pain controlled with PRN Tramadol and Tylenol, lidocaine patch, Voltaren gel HTN Continue Losartan and Amlodipine MCI (mild cognitive impairment) Continue Donepezil Aortic mural thrombus Noted on CT during November admission. Not an indication for anticoagulation may benefit from ASA? BPH Continue Tamsulosin and Finasteride ZHANE CPAP HS with O2 DVT Ppx: SQ Lovenox Code status: FULL PCP: Raghu Dispo: lives at home PT/OT eval Admission and Anticipated Discharge Date Admission Date: January 03, 2025 Subjective ff up for pneumonia, sepsis, etc seen resting in bed, comfortable on 5 L NC states he still feels tired, weak did not sleep well last night has occasional cough- dry breathing is ok no fever/chills no chest pain, dyspnea, palpitations, dizziness no other new symptoms Review of Systems Review of Systems: all noted and negative except for above Physical Exam Physical Exam: General- oriented x 3, not in distress, speaks in sentences with no effort or accessory muscle use Eyes- anicteric Neck- no JVD Lungs- (+) mild rales on the R base clear on the left no wheezing Heart- normal rate, regular rhythm; no murmurs Abdomen- normal bowel sounds, nondistended, soft, nontender Extremities- no pretibial edema, no calf tenderness Neuro- alert, oriented x 3; no gross focal neurologic deficits Skin- warm & dry Results & Data Results & Data Vital Signs (Past 12 Hours) Vital Signs Temp Pulse Pulse Resp BP Pulse Ox O2 Del Method 01/05/25 12:32 86 16 91 Nasal Cannula 01/05/25 11:00 36.7 C 70 19 111/64 94 High Flow Nasal Cannula 01/05/25 07:50 36.7 C 86 20 137/84 90 High Flow Nasal Cannula 01/05/25 03:39 37.0 C 84 18 136/73 96 CPAP 01/05/25 02:25 64 22 90 O2 Flow Rate 01/05/25 12:32 4 01/05/25 11:00 4.0 01/05/25 07:50 5.0 01/05/25 03:39 01/05/25 02:25 3 all noted and reviewed including below (2) Pneumonia Laterality: right Lung location: unspecified part of lung Pneumonia type: due to unspecified organism Qualified Code(s): J18.9 - Pneumonia, unspecified organism (3) COPD (chronic obstructive pulmonary disease) COPD type: unspecified COPD Qualified Code(s): J44.9 - Chronic obstructive pulmonary disease, unspecified
[2025-01-05] MEDS: 4.5GM X1 IV STA (13:01)
--- NOTE | 2025-01-05 13:42 | Pulmonary Consultation ---
Date of Consultation January 05, 2025 Assessment & Plan (1) Chest x-ray abnormality: (2) Chronic hypoxic respiratory failure, on home oxygen therapy: (3) History of influenza: (4) Weakness: Plan 84-year-old man with a history of COPD, tobacco abuse, ZHANE, mild cognitive impairment and recent hospitalization for rib fractures and influenza presenting to the hospital again for weakness. I suspect his weakness is likely due to deconditioning from his recent hospitalization and a general decline in his health and wellbeing related to his prior hospitalization. I suspect the patient is on an adequate amount of oxygen chronically as an outpatient and would likely benefit from 4 to 6 L of oxygen with exertion and 4 L of oxygen continuously at rest rather than 3 L. Patient does have an abnormal infiltrate in the right midlung zone on chest x- ray which may be an indicator of aspiration pneumonitis versus pneumonia. He denies any significant complaints of cough, shortness of breath or fever. He did mention fever to the admitting physician. He does have some mild cognitive impairment. It is not unreasonable to continue with treating community-acquired pneumonia with 7 days of antibiotics. He also has a urine culture which is pending and may be contributing to his general weakness although he declines any overt UTI symptoms. Should his respiratory symptoms remain stable, consider transitioning to oral antibiotics with azithromycin 250 mg daily and cefdinir for total of 7 days. Will order for speech therapy evaluation given the location of the infiltrate on chest x-ray. Otherwise, continue his ICS/LABA/LAMA as you are doing along with DuoNebs as needed. Echo reviewed from 01/04/2025 indicating an EF of 60 to 65% with grade 1 diastolic dysfunction and mild aortic valve sclerosis. He appears euvolemic on exam. Thanks for the consult. Please call questions. History of Present Illness Reason for Consultation: COPD exacerbation Attending Physician: Sunny Fountain MD History of Present Illness 84-year-old male known to me from the pulmonary clinic with a history of COPD and ZHANE who presented to the hospital due to about a month of lethargy. Last month he was hospitalized due to rib fractures and influenza A. He notes that he has not been himself since that time and has endorsed increased lethargy. He denies specifically any shortness of breath or cough. Denies any fevers, chills or night sweats. He was last seen by me in the pulmonary clinic 03/14/2024. PFTs in 2021 revealed a mild airflow obstruction with an FEV1 of 88% and a DLCO of 58%. Chest x-ray today revealed a right basilar infiltrate and severe emphysema. VBG on admission was normal with a pH of 7.42 and a pCO2 of 39. Patient currently on azithromycin 500 mg daily, Arnuity Ellipta, Anoro Ellipta and Zosyn. Labs on arrival significant for leukocytosis of 13,270. Blood cultures negative today. Urine cultures pending. Urinalysis on admission revealed positive leukoesterase, positive WBCs, positive ketones and negative nitrites. Allergies Allergy/AdvReac Type Severity Reaction Status Date / Time No Known Drug Allergies Allergy NKDA Verified 04/12/24 16:29 Home Medications Medication Instructions Recorded Confirmed Type ascorbic acid (vitamin C) 500 mg 500 mg PO DAILY 06/14/19 01/03/25 History tablet losartan 25 mg tablet 25 mg PO QAM 06/14/19 01/03/25 History diclofenac sodium 1 % topical gel 2 gm topical QID PRN Pain 01/18/20 01/03/25 History omeprazole 20 mg capsule,delayed 20 mg PO DAILY 01/18/20 01/03/25 History release polyethylene glycol 3350 17 17 gm PO HS 01/18/20 01/03/25 History gram/dose oral powder (Miralax) potassium citrate 10 mEq (1,080 10 meq PO TID 01/18/20 01/03/25 History mg) tablet,extended release wheat dextrin 5 gram/7.4 gram oral 4 gm PO HS 01/18/20 01/03/25 History powder (Benefiber Healthy Shape) amlodipine 5 mg tablet 5 mg PO DAILY 06/21/22 01/03/25 History calcium 600 mg (as 1 cap PO DAILY 06/30/22 01/03/25 History carbonate)-vitamin D3 5 mcg (200 unit) capsule (Calcium 600 + D(3)) cyanocobalamin (vitamin B-12) 1,000 mcg PO DAILY 06/30/22 01/03/25 History 1,000 mcg tablet (Vitamin B-12) donepezil 10 mg tablet 10 mg PO HS 06/30/22 01/03/25 History fluoride (sodium) 1.1 % dental 1 applic PO DAILY 06/30/22 01/03/25 History paste Portable Oxygen #1 ea 07/15/22 01/03/25 Rx gabapentin 100 mg capsule 100 mg PO TID 07/25/22 01/03/25 History cholecalciferol (vitamin D3) 50 50 mcg PO DAILY 09/16/22 01/03/25 History mcg (2,000 unit) tablet (Vitamin D3) CPAP Supplies #1 ea 11/23/23 01/03/25 Rx finasteride 5 mg tablet 5 mg PO DAILY #90 tabs 05/17/24 01/03/25 Rx tamsulosin 0.4 mg capsule 0.4 mg PO DAILY #90 caps 05/17/24 01/03/25 Rx fluticasone fur. 100 mcg-umeclid 1 inh inhalation DAILY #3 Inhalers 10/27/24 01/03/25 Rx 62.5 mcg-vilant 25 mcg inhalat.powder (Trelegy Ellipta) mirtazapine 7.5 mg tablet 7.5 mg PO HS 11/25/24 01/03/25 History guaifenesin 600 mg tablet, 600 mg PO BID 5 days #0 tabs 11/29/24 01/03/25 Rx extended release 12 hr (Mucinex) tramadol 50 mg tablet 50 mg PO Q8H PRN severe pain 11/29/24 01/03/25 Rx (scale score 7-10) #20 tabs Patient History Medical History Pneumonia Chest pain Hypoxemia COPD (chronic obstructive pulmonary disease) COVID Osteoporosis Osteoarthritis Kidney stones BPH (benign prostatic hyperplasia) Inguinal hernia GERD (gastroesophageal reflux disease) Hearing deficit Memory changes Hypertension Chronic obstructive pulmonary disease CAN'T REMEMBER LAST RES. INH USE - LONG TIME Sleep apnea CPAP Surgical History History of shoulder surgery Left History of foot surgery right foot - big toe - 10/14/2002 History of cholecystectomy History of herniorrhaphy History of surgery on wrist LEFT History of ankle surgery TITANIUM TO LEFT ANKLE History of lithotripsy History of colonoscopy Family History Mother Cancer Father , Spontaneous rupture of kidney Sudden Other No family history of allergies Social History Smoking Status: Former smoker Tobacco Type: Cigarettes Age Started Using Tobacco: 17; Age Quit Using Tobacco: 49; packs per day: 1; Second Hand Exposure: No; Do You Dip or Chew Tobacco: No; Tobacco Cessation Education Requested by Patient: No Hx Alcohol Use: No Hx Substance Use: No Preferred Language: Canadian Communication Ability: Effective Turn Down Man Required: No Beliefs That Will Affect Care: None marital status: Current Living Situation: Spouse Current Living Situation Comment: two story house with , grandson/gf and great grand child current occupational status: retired Other Information That Helps Us Care for You: No Feels Safe at Home: Yes Safety Concerns: Feels Safe At This Time Assistive Devices: Oxygen - Continuous and Walker Review of Systems Review of Systems: All systems reviewed & are unremarkable except as noted in HPI & below Physical Exam Physical Exam: Constitutional: Patient appears to be of their stated age. Patient is in no apparent distress. Patient is well-developed. Eyes: Pupils are equal round and reactive to light. Conjunctivae are normal. Anicteric sclera. Ears nose, mouth and throat: No perioral cyanosis. Neck: Trachea is midline. Visual inspection is normal. Respiratory: Clear to auscultation bilaterally. No use of accessory muscles. No significant clubbing noted. Cardiovascular: Regular rate and rhythm. No murmurs. No edema. Musculoskeletal: No cyanosis. Patient is able to move all extremities. Skin: No rashes, warm dry and intact. Neurologic: No obvious focal neurological deficits seen. Psychiatric: Alert and oriented x3 with a euthymic affect. Results & Data Results & Data Vital Signs (Past 12 Hours) Vital Signs Temp Pulse Pulse Resp BP Pulse Ox O2 Del Method 01/05/25 12:32 86 16 91 Nasal Cannula 01/05/25 11:00 36.7 C 70 19 111/64 94 High Flow Nasal Cannula 01/05/25 07:50 36.7 C 86 20 137/84 90 High Flow Nasal Cannula 01/05/25 03:39 37.0 C 84 18 136/73 96 CPAP 01/05/25 02:25 64 22 90 O2 Flow Rate 01/05/25 12:32 4 01/05/25 11:00 4.0 01/05/25 07:50 5.0 01/05/25 03:39 01/05/25 02:25 3 PG Care Time/CCT Total # of Minutes Spent Total Time Spent with Patient: Total time spent is greater than 50% in coordination of care (as documented) at patient's floor/unit and/or counseling patient: Coding Level of Care Code 29352 INT INP/OBS CARE 2/55MIN Diagnoses Chest x-ray abnormality R93.89 Chronic hypoxic respiratory failure, on home oxygen therapy J96.11; Z99.81 History of influenza Z87.09 Weakness R53.1
[2025-01-05] MEDS: DICLOFENAC SOD 1% GEL 100 GM TUBE EXT PRN (15:27)
[2025-01-05] MEDS: PIPERACILLIN/TAZOBACTAM 4.5 GM/100 ML BAG IV SCH (18:26)
[2025-01-06] MEDS: AZITHROMYCIN 250 MG TAB PO SCH (08:15)
--- NOTE | 2025-01-06 11:15 | Pulmonology Progress Note ---
Date of Service January 06, 2025 Assessment & Plan (1) Chest x-ray abnormality: (2) Chronic hypoxic respiratory failure, on home oxygen therapy: (3) History of influenza: (4) Weakness: (5) Acute on chronic hypoxic respiratory failure: Plan 84-year-old man with a history of COPD, tobacco abuse, ZHANE, mild cognitive impairment and recent hospitalization for rib fractures and influenza presenting to the hospital again for weakness. I suspect his weakness is likely due to deconditioning from his recent hospitalization and a general decline in his health and wellbeing related to his prior hospitalization. I suspect the patient is on an adequate amount of oxygen chronically as an outpatient and would likely benefit from 4 to 6 L of oxygen with exertion and 4 L of oxygen continuously at rest rather than 3 L. Patient does have an abnormal infiltrate in the right midlung zone on chest x- ray which may be an indicator of aspiration pneumonitis versus pneumonia. He denies any significant complaints of cough, shortness of breath or fever. He did mention fever to the admitting physician. He does have some mild cognitive impairment. It is not unreasonable to continue with treating community-acquired pneumonia with 7 days of antibiotics. His urine culture was unremarkable. Given his worsening respiratory status today with worsening hypoxemia and increased work of breathing, we will pursue a CT chest with contrast to evaluate for acute parenchymal disease process and evaluate for pulmonary embolism. Otherwise, continue his ICS/LABA/LAMA as you are doing along with DuoNebs as needed. Echo reviewed from 01/04/2025 indicating an EF of 60 to 65% with grade 1 diastolic dysfunction and mild aortic valve sclerosis. He appears euvolemic on exam. Thanks for the consult. Please call questions. Admission and Anticipated Discharge Date Admission Date: January 03, 2025 Subjective This morning an attempt was made to transfer the patient down to radiology for a modified barium swallow, but his oxygen sats were persistently in the mid 80s despite 8 L of supplemental oxygen and it was elected to leave the patient in his room and do a bedside fees study. When I evaluated him he denied any shortness of breath, but his breathing did appear slightly labored. His was at bedside. He denies any chest pain. Review of Systems Review of Systems: All systems reviewed & are unremarkable except as noted in HPI & below Physical Exam Physical Exam: Constitutional: Patient appears to be of their stated age. Patient is in no apparent distress. Patient is well-developed. Eyes: Pupils are equal round and reactive to light. Conjunctivae are normal. Anicteric sclera. Ears nose, mouth and throat: No perioral cyanosis. Neck: Trachea is midline. Visual inspection is normal. Respiratory: Increased crackles in the right lower lobe. Tachypneic. Cardiovascular: Regular rate and rhythm. No murmurs. No edema. Musculoskeletal: No cyanosis. Patient is able to move all extremities. Skin: No rashes, warm dry and intact. Neurologic: No obvious focal neurological deficits seen. Psychiatric: Alert and oriented x3 with a euthymic affect. Results & Data Results & Data Vital Signs (Past 12 Hours) Vital Signs Temp Pulse Pulse Resp BP Pulse Ox O2 Del Method 01/06/25 09:18 Nasal Cannula 01/06/25 07:29 36.4 C L 80 18 122/74 97 Room Air 01/06/25 07:10 75 01/06/25 07:08 90 20 95 CPAP 01/06/25 04:48 36.4 C L 81 18 123/69 96 CPAP 01/06/25 01:54 76 26 H 94 01/06/25 01:53 92 H 24 93 CPAP 01/06/25 00:50 84 01/05/25 23:22 60 30 H 94 O2 Flow Rate 01/06/25 09:18 4 01/06/25 07:29 01/06/25 07:10 01/06/25 07:08 4 01/06/25 04:48 01/06/25 01:54 4 01/06/25 01:53 4 01/06/25 00:50 01/05/25 23:22 3 PG Care Time/CCT Total # of Minutes Spent Total Time Spent with Patient: Total time spent is greater than 50% in coordination of care (as documented) at patient's floor/unit and/or counseling patient: Coding Level of Care Code 74319 SUB INP/OBS CARE 3/50MIN Diagnoses Chest x-ray abnormality R93.89 Chronic hypoxic respiratory failure, on home oxygen therapy J96.11; Z99.81 History of influenza Z87.09 Weakness R53.1 Acute on chronic hypoxic respiratory failure J96.21
[2025-01-06] MEDS: OPTIRAY 320 125ml IV ONE (12:45)
--- NOTE | 2025-01-06 13:06 | CT Scan Report ---
CT ANGIOGRAM OF THE CHEST CLINICAL HISTORY: Pneumonia. Evaluate for pulmonary embolus. COMPARISON STUDY: Chest radiograph January 05, 2025. Chest CT March 01, 2024. TECHNIQUE: Following the IV administration of 83 cc of Optiray 320, CT angiogram of the chest was per formed from the upper abdomen to the thoracic inlet utilizing the pulmonary embolus protocol. Images are reviewed in the axial, sagittal, and coronal planes. 3-D MIPS images are created and assessed. IV contrast was administered without complication. A dose lowering technique was utilized adhering to the principles of ALARA. CT DOSE: 758.6 mGy.cm FINDINGS: No pulmonary emboli are identified. Size of the heart is within normal limits. There is a t race pericardial effusion. No pneumothorax is present. There is a trace right pleural effusion. Upper lobe predominant emphysema is again noted. Extensive right lower lobe airspace opacity with foci of consolidation is noted. Mild airspace opacities within the right upper and right middle lobes are pre sent. There is no central obstructing mass. Dependent airspace opacities within the left lung favor a telectasis. There is no cavitation. Right hilar adenopathy has developed since CT of March 01, 2024. A few prominent mediastinal lymph nodes have also increased in size. IMPRESSION: 1. No pulmonary emboli identified. 2. Extensive right lower lobe airspace opacity with foci of consolidation consistent with pneumonia. Mild airspace opacities within the right upper and right middle lobes. A chest CT in 3 months to ensu re resolution is recommended. 3. Right hilar and mediastinal lymphadenopathy which has developed since chest CT of March 01, 2024. Th is is likely reactive however should be assessed on follow-up CT to ensure resolution. 4. Emphysema. 5. Small right pleural effusion. ACT 112: Negative or not required by law. Electronically signed by: Willaim Gaona M.D. 01/06/2025 1:04 PM
--- NOTE | 2025-01-06 17:46 | Hospitalist Progress Note ---
Date of Service January 06, 2025 Assessment & Plan (1) Acute on chronic hypoxic respiratory failure: (2) Pneumonia: (3) COPD (chronic obstructive pulmonary disease): (4) Emphysema lung: (5) Hypertension: (6) BPH with obstruction/lower urinary tract symptoms: (7) Mild cognitive impairment: (8) ZHANE (obstructive sleep apnea): Plan per previous hospitalist notes with addendum: This is an 84yo M with PMH of PMH of COPD, chronic respiratory failure with hypoxia on baseline O2 of 2 L, obstructive sleep apnea, HTN, GERD, lumbar degenerative disc disease, B12 deficiency, overactive bladder, BPH, mild cognitive impairment who presents to the hospital with fever and cough for past few days and was found to have acute on chronic hypoxic resp failure in setting of PNA. Sepsis Acute on chronic hypoxic respiratory failure T: 39 C, WBC 13.27, procal 0.90 with PNA meeting sepsis criteria CXR right midlung and patchy right greater than left bibasilar opacities suggestive of pneumonia. Severe emphysema. Cardiomegaly without overt pulmonary edema Given Rocephin and Azithromycin in ED Giving 1 time dose of Vancomycin given recent admission for influenza A, MRSA swab pending Resp viral panel negative Continue Mucinex, incentive spirometry, flutter valve Currently saturating 93% on 7 L non-rebreather Wean O2 back to baseline 3L as tolerated 4/2 currently on 6 L NC ff up blood and sputum cultures continue Cefepime + Azithro 4/3 remains on 5L NC CXR: progressive R mid-lower lobe infiltrates blood cultures: negative so far urine culture: negative so far change Cefepime to Zosyn add Nebs QID Pulm service consulted COPD Not wheezing on exam, so prednisone not indicated to continue at this time Continue Oxygen, and Trelegy continue Mucinex, IS, FV Recent fall with multiple L sided rib fractures Healing, pain controlled with PRN Tramadol and Tylenol, lidocaine patch, Voltaren gel HTN Continue Losartan and Amlodipine MCI (mild cognitive impairment) Continue Donepezil Aortic mural thrombus Noted on CT during November admission. Not an indication for anticoagulation may benefit from ASA? BPH Continue Tamsulosin and Finasteride ZHANE CPAP HS with O2 DVT Ppx: SQ Lovenox Code status: FULL PCP: Raghu Dispo: lives at home PT/OT eval Admission and Anticipated Discharge Date Admission Date: January 03, 2025 Results & Data Results & Data Vital Signs (Past 12 Hours) Vital Signs Temp Pulse Pulse Resp BP Pulse Ox O2 Del Method 01/06/25 14:40 75 01/06/25 14:35 36.7 C 82 19 120/66 91 CPAP 01/06/25 13:00 85 18 90 Nasal Cannula 01/06/25 11:03 36.8 C 75 19 108/62 93 Nasal Cannula 01/06/25 09:18 Nasal Cannula 01/06/25 07:29 36.4 C L 80 18 122/74 97 Room Air 01/06/25 07:10 75 01/06/25 07:08 90 20 95 CPAP O2 Flow Rate 01/06/25 14:40 01/06/25 14:35 01/06/25 13:00 5 01/06/25 11:03 6.0 01/06/25 09:18 4 01/06/25 07:29 01/06/25 07:10 01/06/25 07:08 4 (2) Pneumonia Laterality: right Lung location: unspecified part of lung Pneumonia type: due to unspecified organism Qualified Code(s): J18.9 - Pneumonia, unspecified organism (3) COPD (chronic obstructive pulmonary disease) COPD type: unspecified COPD Qualified Code(s): J44.9 - Chronic obstructive pulmonary disease, unspecified
--- NOTE | 2025-01-07 13:12 | Pulmonology Progress Note ---
Date of Service January 07, 2025 Assessment & Plan (1) Chest x-ray abnormality: (2) Chronic hypoxic respiratory failure, on home oxygen therapy: (3) History of influenza: (4) Weakness: (5) Acute on chronic hypoxic respiratory failure: (6) Aspiration pneumonia: (7) Watery diarrhea: Plan 84-year-old man with a history of COPD, tobacco abuse, ZHANE, mild cognitive impairment and recent hospitalization for rib fractures and influenza presenting to the hospital again for weakness. I suspect his weakness is likely due to deconditioning from his recent hospitalization and a general decline in his health and wellbeing related to his prior hospitalization. I suspect the patient is on an inadequate amount of oxygen chronically as an outpatient and would likely benefit from 4 to 6 L of oxygen with exertion and 4 L of oxygen continuously at rest rather than 3 L. Follow sputum cultures. Continue Zosyn and azithromycin. CT chest revealed signs of right-sided pneumonia concerning for aspiration pneumonia. Speech therapy consultation and a bedside fees revealed overt signs of aspiration. Patient easy to chew diet. Aspiration precautions ordered. His urine culture was unremarkable. Otherwise, continue his ICS/LABA/LAMA as you are doing along with DuoNebs as needed. Echo reviewed from 01/04/2025 indicating an EF of 60 to 65% with grade 1 diastolic dysfunction and mild aortic valve sclerosis. He appears euvolemic on exam. Patient experiencing watery diarrhea today. Will place in contact isolation and order a stool C. difficile gene study and toxin evaluation. Admission and Anticipated Discharge Date Admission Date: January 03, 2025 Subjective Patient complains of watery diarrhea x 3 today. No fevers or chills. He does have cough with dark-colored sputum. CT chest personally viewed by me yesterday reveals evidence of infiltrate in the right lower lobe and right middle lobe. Swallow evaluation yesterday with fees revealed overt aspirations and they are recommending an easy to chew diet. Review of Systems Review of Systems: All systems reviewed & are unremarkable except as noted in HPI & below Physical Exam Physical Exam: Constitutional: Patient appears to be of their stated age. Patient is in no apparent distress. Patient is well-developed. Eyes: Pupils are equal round and reactive to light. Conjunctivae are normal. Anicteric sclera. Ears nose, mouth and throat: No perioral cyanosis. Neck: Trachea is midline. Visual inspection is normal. Respiratory: Increased crackles in the right lower lobe. Tachypneic. Cardiovascular: Regular rate and rhythm. No murmurs. No edema. Musculoskeletal: No cyanosis. Patient is able to move all extremities. Skin: No rashes, warm dry and intact. Neurologic: No obvious focal neurological deficits seen. Psychiatric: Alert and oriented x3 with a euthymic affect. Results & Data Results & Data Vital Signs (Past 12 Hours) Vital Signs Temp Pulse Pulse Resp BP BP Pulse Ox 01/07/25 10:51 36.5 C 78 20 138/73 91 01/07/25 08:00 01/07/25 07:29 76 16 92 01/07/25 07:13 37.2 C 69 19 113/59 L 95 01/07/25 03:22 79 25 H 92 01/07/25 03:00 36.6 C 80 19 109/68 92 O2 Del Method O2 Flow Rate 01/07/25 10:51 Nasal Cannula 4.0 01/07/25 08:00 Nasal Cannula 4 01/07/25 07:29 Nasal Cannula 4 01/07/25 07:13 Nasal Cannula 4.0 01/07/25 03:22 4 01/07/25 03:00 CPAP PG Care Time/CCT Total # of Minutes Spent Total Time Spent with Patient: Total time spent is greater than 50% in coordination of care (as documented) at patient's floor/unit and/or counseling patient: Coding Level of Care Code 31229 SUB INP/OBS CARE 2/35MIN Diagnoses Chest x-ray abnormality R93.89 Chronic hypoxic respiratory failure, on home oxygen therapy J96.11; Z99.81 History of influenza Z87.09 Weakness R53.1 Acute on chronic hypoxic respiratory failure J96.21 Aspiration pneumonia J69.0 Watery diarrhea R19.7
[2025-01-07] MEDS: LOPERAMIDE HCL 2 MG CAP PO PRN (16:36)
--- NOTE | 2025-01-07 18:10 | Hospitalist Progress Note ---
Date of Service January 07, 2025 Assessment & Plan (1) Acute on chronic hypoxic respiratory failure: (2) Pneumonia: (3) COPD (chronic obstructive pulmonary disease): (4) Emphysema lung: (5) Hypertension: (6) BPH with obstruction/lower urinary tract symptoms: (7) Mild cognitive impairment: (8) ZHANE (obstructive sleep apnea): Plan per previous hospitalist notes with addendum: This is an 84yo M with PMH of PMH of COPD, chronic respiratory failure with hypoxia on baseline O2 of 2 L, obstructive sleep apnea, HTN, GERD, lumbar degenerative disc disease, B12 deficiency, overactive bladder, BPH, mild cognitive impairment who presents to the hospital with fever and cough for past few days and was found to have acute on chronic hypoxic resp failure in setting of PNA. Sepsis Acute on chronic hypoxic respiratory failure T: 39 C, WBC 13.27, procal 0.90 with PNA meeting sepsis criteria CXR right midlung and patchy right greater than left bibasilar opacities suggestive of pneumonia. Severe emphysema. Cardiomegaly without overt pulmonary edema Given Rocephin and Azithromycin in ED Giving 1 time dose of Vancomycin given recent admission for influenza A, MRSA swab pending Resp viral panel negative Continue Mucinex, incentive spirometry, flutter valve Currently saturating 93% on 7 L non-rebreather Wean O2 back to baseline 3L as tolerated / currently on 6 L NC ff up blood and sputum cultures continue Cefepime + Azithro 01/05 remains on 5L NC CXR: progressive R mid-lower lobe infiltrates blood cultures: negative so far urine culture: negative so far change Cefepime to Zosyn add Nebs QID Pulm service consulted 01/07 remains on 5 L NC Blood cultures: Negative Urine culture: Negative Sputum culture: Pending Continue Zosyn plus azithromycin Continue nebs Appreciate pulm service recommendations Diarrhea C. difficile negative Imodium as needed COPD Not wheezing on exam, so prednisone not indicated to continue at this time Continue Oxygen, and Trelegy continue Mucinex, IS, FV Recent fall with multiple L sided rib fractures Healing, pain controlled with PRN Tramadol and Tylenol, lidocaine patch, Voltaren gel HTN Continue Losartan and Amlodipine MCI (mild cognitive impairment) Continue Donepezil Aortic mural thrombus Noted on CT during November admission. Not an indication for anticoagulation may benefit from ASA? BPH Continue Tamsulosin and Finasteride ZHANE CPAP HS with O2 DVT Ppx: SQ Lovenox Code status: FULL PCP: Raghu Dispo: lives at home PT/OT eval Admission and Anticipated Discharge Date Admission Date: January 03, 2025 Subjective ff up for pneumonia, etc seen resting in bed, comfortable sound asleep not in distress discussed with RN (+) diarrhea, non bloody today no other new symptom Review of Systems Review of Systems: all noted and negative except for above Physical Exam Physical Exam: General- breathing with no effort or accessory muscle use Eyes- anicteric Neck- no JVD Lungs- mild rales R lower lobe no wheezing Heart- normal rate, regular rhythm; no murmurs Abdomen- normal bowel sounds, nondistended, soft, nontender Extremities- no pretibial edema, no calf tenderness Neuro-sleeping Skin- warm & dry Results & Data Results & Data Vital Signs (Past 12 Hours) Vital Signs Temp Pulse Resp BP BP Pulse Ox O2 Del Method 01/07/25 17:42 92 Nasal Cannula 01/07/25 14:45 36.7 C 73 19 135/77 89 L Nasal Cannula 01/07/25 14:03 72 18 93 Nasal Cannula 01/07/25 10:51 36.5 C 78 20 138/73 91 Nasal Cannula 01/07/25 08:00 Nasal Cannula 01/07/25 07:29 76 16 92 Nasal Cannula 01/07/25 07:13 37.2 C 69 19 113/59 L 95 Nasal Cannula O2 Flow Rate 01/07/25 17:42 4 01/07/25 14:45 4.0 01/07/25 14:03 2 01/07/25 10:51 4.0 01/07/25 08:00 4 01/07/25 07:29 4 01/07/25 07:13 4.0 all noted and reviewed including below (2) Pneumonia Laterality: right Lung location: unspecified part of lung Pneumonia type: due to unspecified organism Qualified Code(s): J18.9 - Pneumonia, unspecified organism (3) COPD (chronic obstructive pulmonary disease) COPD type: unspecified COPD Qualified Code(s): J44.9 - Chronic obstructive pulmonary disease, unspecified
[2025-01-08] MEDS: ACETAMINOPHEN 325 MG TAB PO PRN (07:42)
[2025-01-08 11:13] LABS: Basophils # (auto) 0.02 K/uL (0.00-0.20); Basophils % (auto) 0.4 %; Eosinophils # (auto) 0.12 K/uL (0.00-0.50); Eosinophils % (auto) 2.2 %; Hemoglobin 12.6 g/dl (14.0-18.0); Immature Granulocytes # (auto) 0.06 K/uL (0.01-0.20); Immature Granulocytes % (auto) 1.1 %; Lymphocytes # (auto) 0.78 K/uL (1.20-3.40); Lymphocytes % (auto) 14.1 %; Mean Corpuscular Hemoglobin 31.5 pg (25.0-34.0); Mean Corpuscular Hgb Conc 32.3 g/dL (32.0-36.0); Mean Corpuscular Volume 97.5 fL (80.0-100.0); Monocytes # (auto) 0.61 K/uL (0.11-0.59); Neutrophils # (auto) 3.95 K/uL (1.40-6.50); Neutrophils % (auto) 71.2 %; Platelet Count 167 K/uL (130-400); RDW Coefficient of Variation 13.8 % (11.5-14.5); White Blood Count 5.54 K/ul (4.8-10.8)
[2025-01-08 11:30] LABS: BUN Creatinine Ratio 14.5 (10-20); Calcium 8.9 mg/dl (8.6-10.3); Creatinine Clr Calc Pharmacy 71.1 ml/min; Potassium 3.8 mmol/L (3.5-5.1)
--- NOTE | 2025-01-08 12:00 | Pulmonology Progress Note ---
Date of Service January 08, 2025 Assessment & Plan (1) Aspiration pneumonia: (2) Chest x-ray abnormality: (3) Chronic hypoxic respiratory failure, on home oxygen therapy: (4) History of influenza: (5) Weakness: (6) Acute on chronic hypoxic respiratory failure: (7) Watery diarrhea: (8) Shortness of breath: Plan 84-year-old man with a history of COPD, tobacco abuse, ZHANE, mild cognitive impairment and recent hospitalization for rib fractures and influenza presenting to the hospital again for weakness. I suspect his weakness is likely due to deconditioning from his recent hospitalization and a general decline in his health and wellbeing related to his prior hospitalization. I suspect the patient is on an inadequate amount of oxygen chronically as an outpatient and would likely benefit from 4 to 6 L of oxygen with exertion and 4 L of oxygen continuously at rest rather than 3 L. Sputum cultures with light normal santhosh and final report to follow. Continue Zosyn and azithromycin. CT chest revealed signs of right-sided pneumonia concerning for aspiration pneumonia. Speech therapy consultation and a bedside fees revealed overt signs of aspiration. Patient on easy to chew diet. Aspiration precautions ordered. Will repeat chest x-ray today given patient's complaint of worsening shortness of breath. Oxygen requirements have remained the same and physical examination is unchanged from prior as well. Patient on Lovenox for chemical prophylaxis of DVT this pulmonary embolism unlikely especially in light of his normal sinus rhythm. Suggest out of bed to chair, PT and OT evaluations. His urine culture was unremarkable. C. difficile testing was unremarkable. Otherwise, continue his ICS/LABA/LAMA as you are doing along with DuoNebs as needed. Echo reviewed from 01/04/2025 indicating an EF of 60 to 65% with grade 1 diastolic dysfunction and mild aortic valve sclerosis. He appears euvolemic on exam. Admission and Anticipated Discharge Date Admission Date: January 03, 2025 Subjective Patient reports that he feels sicker today than he has the last few days. It is difficult for him to explain what exactly is worse compared to the days prior. He was finally able to tell me that he feels more short of breath than he did. He also notes some mild abdominal discomfort but exam is nonfocal and nontender to palpation. He did have a fever of 37.8 this morning. He denies any chest pain. He has ongoing diarrhea. C. difficile testing yesterday was negative. Review of Systems Review of Systems: All systems reviewed & are unremarkable except as noted in HPI & below Physical Exam Physical Exam: Constitutional: Patient appears to be of their stated age. Patient is in no apparent distress. Patient is well-developed. Eyes: Pupils are equal round and reactive to light. Conjunctivae are normal. Anicteric sclera. Ears nose, mouth and throat: No perioral cyanosis. Neck: Trachea is midline. Visual inspection is normal. Respiratory: Crackles in the right lower lobe. Tachypneic. Cardiovascular: Regular rate and rhythm. No murmurs. No edema. Musculoskeletal: No cyanosis. Patient is able to move all extremities. Skin: No rashes, warm dry and intact. Neurologic: No obvious focal neurological deficits seen. Psychiatric: Alert and oriented x3 with a euthymic affect. Results & Data Results & Data Vital Signs (Past 12 Hours) Vital Signs Temp Pulse Pulse Resp BP BP Pulse Ox 01/08/25 11:12 36.6 C 71 19 113/66 92 01/08/25 08:00 01/08/25 07:13 76 18 94 01/08/25 06:49 37.8 C H 68 20 120/70 92 01/08/25 03:06 80 21 94 01/08/25 02:32 36.8 C 80 19 124/68 94 01/08/25 00:23 20 93 O2 Del Method O2 Flow Rate 01/08/25 11:12 Nasal Cannula 4.0 01/08/25 08:00 Nasal Cannula 4 01/08/25 07:13 CPAP 2 01/08/25 06:49 CPAP 01/08/25 03:06 2 01/08/25 02:32 CPAP 01/08/25 00:23 2 PG Care Time/CCT Total # of Minutes Spent Total Time Spent with Patient: Total time spent is greater than 50% in coordination of care (as documented) at patient's floor/unit and/or counseling patient: Coding Level of Care Code 62883 SUB INP/OBS CARE 3/50MIN Diagnoses Aspiration pneumonia J69.0 Chest x-ray abnormality R93.89 Chronic hypoxic respiratory failure, on home oxygen therapy J96.11; Z99.81 History of influenza Z87.09 Weakness R53.1 Acute on chronic hypoxic respiratory failure J96.21 Watery diarrhea R19.7 Shortness of breath R06.02
--- NOTE | 2025-01-08 12:13 | XRay Report ---
XR chest 1V portable HISTORY: 84 years-old Male worsening shortness of breath COMPARISON: CTA chest 01/06/2025 TECHNIQUE: AP view of the chest FINDINGS: Cardiomediastinal and hilar silhouettes are unchanged. Emphysema. Trace pleural effusion suggested. T here are persistent similar-appearing right lower lobe airspace opacities. Left basilar calcified gra nuloma. Bones appear grossly intact. No pneumothorax or overt pulmonary edema. IMPRESSION: Emphysema with stable right basilar pneumonia. ACT 112: Negative or not required by law. The above report was generated using voice recognition software. It may contain grammatical, syntax o r spelling errors. Electronically signed by: Josue Al M.D. 01/08/2025 12:11 PM
--- NOTE | 2025-01-08 13:03 | Hospitalist Progress Note ---
Date of Service January 08, 2025 Assessment & Plan (1) Acute on chronic hypoxic respiratory failure: (2) Pneumonia: (3) COPD (chronic obstructive pulmonary disease): (4) Emphysema lung: (5) Hypertension: (6) BPH with obstruction/lower urinary tract symptoms: (7) Mild cognitive impairment: (8) ZHANE (obstructive sleep apnea): Plan per previous hospitalist notes with addendum: This is an 84yo M with PMH of PMH of COPD, chronic respiratory failure with hypoxia on baseline O2 of 2 L, obstructive sleep apnea, HTN, GERD, lumbar degenerative disc disease, B12 deficiency, overactive bladder, BPH, mild cognitive impairment who presents to the hospital with fever and cough for past few days and was found to have acute on chronic hypoxic resp failure in setting of PNA. Sepsis Acute on chronic hypoxic respiratory failure T: 39 C, WBC 13.27, procal 0.90 with PNA meeting sepsis criteria CXR right midlung and patchy right greater than left bibasilar opacities suggestive of pneumonia. Severe emphysema. Cardiomegaly without overt pulmonary edema Given Rocephin and Azithromycin in ED Giving 1 time dose of Vancomycin given recent admission for influenza A, MRSA swab pending Resp viral panel negative Continue Mucinex, incentive spirometry, flutter valve Currently saturating 93% on 7 L non-rebreather Wean O2 back to baseline 3L as tolerated 01/04 currently on 6 L NC ff up blood and sputum cultures continue Cefepime + Azithro 01/05 remains on 5L NC CXR: progressive R mid-lower lobe infiltrates blood cultures: negative so far urine culture: negative so far change Cefepime to Zosyn add Nebs QID Pulm service consulted 01/07 remains on 5 L NC Blood cultures: Negative Urine culture: Negative Sputum culture: Pending Continue Zosyn plus azithromycin Continue nebs Appreciate pulm service recommendations 01/08 sputum culture: Light normal santhosh Repeat chest x-ray: Stable right lower lobe pneumonia Continue present regimen Encouraged to use incentive spirometry and flutter valve PT OT evaluation Diarrhea C. difficile negative Imodium as needed COPD Not wheezing on exam, so prednisone not indicated to continue at this time Continue Oxygen, and Trelegy continue Mucinex, IS, FV Recent fall with multiple L sided rib fractures Healing, pain controlled with PRN Tramadol and Tylenol, lidocaine patch, Voltaren gel HTN Continue Losartan and Amlodipine MCI (mild cognitive impairment) Continue Donepezil Aortic mural thrombus Noted on CT during November admission. Not an indication for anticoagulation may benefit from ASA? BPH Continue Tamsulosin and Finasteride ZHANE CPAP HS with O2 DVT Ppx: SQ Lovenox Code status: FULL PCP: Raghu Dispo: lives at home PT/OT eval Admission and Anticipated Discharge Date Admission Date: January 03, 2025 Subjective Follow-up for pneumonia, acute on chronic respiratory failure, etc. Seen resting in bed, on 4 L of O2 via manual States he feels about the same Breathing is about the same No chest pain, palpitations, dizziness No fevers or chills No other new symptom Review of Systems Review of Systems: all noted and negative except for above Physical Exam Physical Exam: General- oriented x 3, not in distress, speaks in sentences with no effort or accessory muscle use Eyes- anicteric Neck- no JVD Lungs- mild crackles right base, no wheezing Heart- normal rate, regular rhythm; no murmurs Abdomen- normal bowel sounds, nondistended, soft, nontender Extremities- no pretibial edema, no calf tenderness Neuro- alert, oriented x 3; no gross focal neurologic deficits Skin- warm & dry Results & Data Results & Data Vital Signs (Past 12 Hours) Vital Signs Temp Pulse Pulse Resp BP BP Pulse Ox 01/08/25 12:46 76 20 92 01/08/25 11:12 36.6 C 71 19 113/66 92 01/08/25 08:00 01/08/25 07:13 76 18 94 01/08/25 06:49 37.8 C H 68 20 120/70 92 01/08/25 03:06 80 21 94 01/08/25 02:32 36.8 C 80 19 124/68 94 O2 Del Method O2 Flow Rate 01/08/25 12:46 Nasal Cannula 4 01/08/25 11:12 Nasal Cannula 4.0 01/08/25 08:00 Nasal Cannula 4 01/08/25 07:13 CPAP 2 01/08/25 06:49 CPAP 01/08/25 03:06 2 01/08/25 02:32 CPAP all noted and reviewed including below (2) Pneumonia Laterality: right Lung location: unspecified part of lung Pneumonia type: due to unspecified organism Qualified Code(s): J18.9 - Pneumonia, unspecified organism (3) COPD (chronic obstructive pulmonary disease) COPD type: unspecified COPD Qualified Code(s): J44.9 - Chronic obstructive pulmonary disease, unspecified
--- NOTE | 2025-01-09 13:17 | Pulmonology Progress Note ---
Date of Service January 09, 2025 Assessment & Plan (1) Aspiration pneumonia: (2) Chest x-ray abnormality: (3) Chronic hypoxic respiratory failure, on home oxygen therapy: (4) History of influenza: (5) Weakness: (6) Acute on chronic hypoxic respiratory failure: (7) Watery diarrhea: (8) Shortness of breath: Plan IMPRESSION: 84-year-old male with a significant past medical history of COPD, tobacco abuse, and obstructive sleep apnea who was admitted in the setting of RIGHT lower lobe pneumonia with increasing oxygen requirement. RECOMMENDATIONS: 1. Aspiration pneumonia - Findings on CT with more dense RIGHT lower lobe infiltrative process as previously seen on chest x-ray. Aspiration suspected by NUCLEAR EQUIPMENT TEST ENGINEER bedside evaluation. Recommendations in place for diet moving forward. Can likely transition to Unasyn as opposed to Zosyn unless there is some other reason this is required. Complete course of azithromycin. Continue with pulmonary toileting in the form of flutter valve and incentive spirometry. Patient is describing some isolated episodes of hemoptysis, however this had not been documented previously. Asked nursing staff to provide with specimen cup for collection. Would be cautious of flutter valve if this are the case. Patient is not on anticoagulants other than Lovenox at this time. Sputum cultures have demonstrated normal santhosh to this point. 2. COPD - Continue with current inhalers and nebulizers as you are. 3. Increase out of bed to chair with activity as tolerated. Thank you for allowing us to participate in the care of this pleasant patient. Admission and Anticipated Discharge Date Admission Date: January 03, 2025 Subjective Patient seen and evaluated at bedside. He states that his breathing has been f ine. He does occasionally have a cough that is productive of what he is describing is blood-tinged sputum. It is difficult to elicit history otherwise. Review of Systems Review of Systems: Per subjective Physical Exam Physical Exam: Constitutional: Patient appears to be of their stated age. Patient is in no apparent distress. Patient is well-developed. Eyes: Pupils are equal round and reactive to light. Conjunctivae are normal. Anicteric sclera. Ears nose, mouth and throat: No perioral cyanosis. Neck: Trachea is midline. Visual inspection is normal. Respiratory: Crackles in the right lower lobe. Cardiovascular: Regular rate and rhythm. No murmurs. No edema. Musculoskeletal: No cyanosis. Patient is able to move all extremities. Skin: No rashes, warm dry and intact. Neurologic: No obvious focal neurological deficits seen. Results & Data Results & Data Vital Signs (Past 12 Hours) Vital Signs Temp Pulse Pulse Resp BP BP Pulse Ox 01/09/25 13:07 85 18 90 01/09/25 10:42 36.6 C 70 20 106/76 90 01/09/25 09:43 01/09/25 08:13 69 01/09/25 07:14 75 18 94 01/09/25 07:00 36.5 C 75 20 104/63 95 01/09/25 03:05 37.3 C 77 20 110/61 96 01/09/25 02:45 72 24 96 O2 Del Method O2 Flow Rate 01/09/25 13:07 Nasal Cannula 3 01/09/25 10:42 Nasal Cannula 4 01/09/25 09:43 Nasal Cannula 4 01/09/25 08:13 01/09/25 07:14 Nasal Cannula 4 01/09/25 07:00 CPAP 01/09/25 03:05 CPAP 01/09/25 02:45 4 PG Care Time/CCT Total # of Minutes Spent Total Time Spent with Patient: Total time spent is greater than 50% in coordination of care (as documented) at patient's floor/unit and/or counseling patient: Coding Level of Care Code 45884 SUB INP/OBS CARE 2/35MIN Diagnoses Aspiration pneumonia J69.0 Chest x-ray abnormality R93.89 Chronic hypoxic respiratory failure, on home oxygen therapy J96.11; Z99.81 History of influenza Z87.09 Weakness R53.1 Acute on chronic hypoxic respiratory failure J96.21 Watery diarrhea R19.7 Shortness of breath R06.02
--- NOTE | 2025-01-09 17:26 | Hospitalist Progress Note ---
Date of Service January 09, 2025 Assessment & Plan (1) Acute on chronic hypoxic respiratory failure: (2) Pneumonia: (3) COPD (chronic obstructive pulmonary disease): (4) Emphysema lung: (5) Hypertension: (6) BPH with obstruction/lower urinary tract symptoms: (7) Mild cognitive impairment: (8) ZHANE (obstructive sleep apnea): Plan per previous hospitalist notes with addendum: This is an 84yo M with PMH of PMH of COPD, chronic respiratory failure with hypoxia on baseline O2 of 2 L, obstructive sleep apnea, HTN, GERD, lumbar degenerative disc disease, B12 deficiency, overactive bladder, BPH, mild cognitive impairment who presents to the hospital with fever and cough for past few days and was found to have acute on chronic hypoxic resp failure in setting of PNA. Sepsis Acute on chronic hypoxic respiratory failure T: 39 C, WBC 13.27, procal 0.90 with PNA meeting sepsis criteria CXR right midlung and patchy right greater than left bibasilar opacities suggestive of pneumonia. Severe emphysema. Cardiomegaly without overt pulmonary edema Given Rocephin and Azithromycin in ED Giving 1 time dose of Vancomycin given recent admission for influenza A, MRSA swab pending Resp viral panel negative Continue Mucinex, incentive spirometry, flutter valve Currently saturating 93% on 7 L non-rebreather Wean O2 back to baseline 3L as tolerated 01/04 currently on 6 L NC ff up blood and sputum cultures continue Cefepime + Azithro 01/05 remains on 5L NC CXR: progressive R mid-lower lobe infiltrates blood cultures: negative so far urine culture: negative so far change Cefepime to Zosyn add Nebs QID Pulm service consulted 01/07 remains on 5 L NC Blood cultures: Negative Urine culture: Negative Sputum culture: Pending Continue Zosyn plus azithromycin Continue nebs Appreciate pulm service recommendations 01/08 sputum culture: Light normal santhosh Repeat chest x-ray: Stable right lower lobe pneumonia Continue present regimen Encouraged to use incentive spirometry and flutter valve PT OT evaluation 01/09 improving Continue present regimen Dissipate discharge to home tomorrow Diarrhea C. difficile negative Imodium as needed COPD Not wheezing on exam, so prednisone not indicated to continue at this time Continue Oxygen, and Trelegy continue Mucinex, IS, FV Recent fall with multiple L sided rib fractures Healing, pain controlled with PRN Tramadol and Tylenol, lidocaine patch, Voltaren gel HTN Continue Losartan and Amlodipine MCI (mild cognitive impairment) Continue Donepezil Aortic mural thrombus Noted on CT during November admission. Not an indication for anticoagulation may benefit from ASA? BPH Continue Tamsulosin and Finasteride ZHANE CPAP HS with O2 DVT Ppx: SQ Lovenox Code status: FULL PCP: Raghu Dispo: lives at home PT/OT eval Admission and Anticipated Discharge Date Admission Date: January 03, 2025 Subjective follow-up for pneumonia, etc. Seen resting in bedside chair, comfortable, on 4 L of O2 States he feels better today overall Breathing is better, less cough No chest pain No other new symptoms Review of Systems Review of Systems: all noted and negative except for above Physical Exam Physical Exam: General- oriented x 3, not in distress, speaks in sentences with no effort or accessory muscle use Eyes- anicteric Neck- no JVD Lungs- mild rales right base, no wheezing Heart- normal rate, regular rhythm; no murmurs Abdomen- normal bowel sounds, nondistended, soft, nontender Extremities- no pretibial edema, no calf tenderness Neuro- alert, oriented x 3; no gross focal neurologic deficits Skin- warm & dry Results & Data Results & Data Vital Signs (Past 12 Hours) Vital Signs Temp Pulse Pulse Resp BP Pulse Ox Pulse Ox 01/09/25 15:44 36.7 C 89 18 110/64 91 01/09/25 14:00 95 01/09/25 13:07 85 18 90 01/09/25 10:42 36.6 C 70 20 106/76 90 01/09/25 09:43 01/09/25 08:13 69 01/09/25 07:14 75 18 94 01/09/25 07:00 36.5 C 75 20 104/63 95 O2 Del Method O2 Del Method O2 Flow Rate O2 Flow Rate 01/09/25 15:44 Nasal Cannula 01/09/25 14:00 Nasal Cannula 5 01/09/25 13:07 Nasal Cannula 3 01/09/25 10:42 Nasal Cannula 4 01/09/25 09:43 Nasal Cannula 4 01/09/25 08:13 01/09/25 07:14 Nasal Cannula 4 01/09/25 07:00 CPAP all noted and reviewed including below (2) Pneumonia Laterality: right Lung location: unspecified part of lung Pneumonia type: due to unspecified organism Qualified Code(s): J18.9 - Pneumonia, unspecified organism (3) COPD (chronic obstructive pulmonary disease) COPD type: unspecified COPD Qualified Code(s): J44.9 - Chronic obstructive pulmonary disease, unspecified
--- NOTE | 2025-01-10 08:36 | Pulmonology Progress Note ---
Date of Service January 10, 2025 Assessment & Plan (1) Aspiration pneumonia: (2) Chest x-ray abnormality: (3) Chronic hypoxic respiratory failure, on home oxygen therapy: (4) History of influenza: (5) Weakness: (6) Acute on chronic hypoxic respiratory failure: (7) Watery diarrhea: (8) Shortness of breath: Plan IMPRESSION: 84-year-old male with a significant past medical history of COPD, tobacco abuse, and obstructive sleep apnea who was admitted in the setting of RIGHT lower lobe pneumonia with increasing oxygen requirement. RECOMMENDATIONS: 1. Aspiration pneumonia - Findings on CT with more dense RIGHT lower lobe infiltrative process as previously seen on chest x-ray. Aspiration suspected by PANAMA HAT HYDRAULIC PRESS OPERATOR bedside evaluation. Patient has completed 7 days of antimicrobial therapy which should be more than adequate. Antibiotics at this point time can be discontinued. Recommend follow-up chest x-ray in 2 to 4 weeks and follow-up in the outpatient setting with Dr. Del Rosario. 2. COPD -resume home regimen 3. Continue supplemental oxygen to maintain oxygen saturations at or above 90% Patient appears to be clinically improved. He can likely be dismissed from the hospital. Outpatient follow-up as noted above. Pulmonary will sign off. Feel free to contact us with questions or concerns Admission and Anticipated Discharge Date Admission Date: January 03, 2025 Subjective Patient seen and examined. EMR reviewed. Patient reports he is doing okay clinically. He is not been out of bed. He is coughing but not producing any phlegm. No chest pain or palpitations. He appears to be at his baseline oxygen requirement. His affect continues to be flat and blunted. Review of Systems 2 Review of Systems: All systems reviewed & are unremarkable except as noted in Subjective Physical Exam 2 Constitutional: WD/WN, vitals as above Neck: trachea midline, no thyromegaly Respiratory: normal respiratory effort, lungs clear to auscultation Cardiovascular: RRR, no murmur, no edema Gastrointestinal (Abdomen): normal bowel sounds, soft, nontender, no hepatosplenomegaly Musculoskeletal: Extremities: extremities normal to inspection Skin: no rashes, warm and dry Neurologic: Nonfocal exam Lymphatic: no cervical lymphadenopathy Results & Data Results & Data Vital Signs (Past 12 Hours) Vital Signs Temp Pulse Pulse Resp BP Pulse Ox O2 Del Method 01/10/25 07:38 36.9 C 80 21 126/69 93 CPAP 01/10/25 07:21 70 18 94 CPAP 01/10/25 03:01 36.5 C 68 18 130/71 95 CPAP 01/10/25 02:59 72 23 90 01/10/25 00:37 72 17 90 CPAP 01/10/25 00:00 77 01/09/25 23:28 84 21 90 01/09/25 22:57 36.5 C 80 16 133/81 92 BiPAP O2 Flow Rate 01/10/25 07:38 01/10/25 07:21 3 01/10/25 03:01 01/10/25 02:59 4 01/10/25 00:37 4 01/10/25 00:00 01/09/25 23:28 4 01/09/25 22:57 Laboratory Results 01/08/25 09:14 01/08/25 09:14 Diagnostic Findings No new imaging PG Care Time/CCT Total # of Minutes Spent Total Time Spent with Patient: Total time spent is greater than 50% in coordination of care (as documented) at patient's floor/unit and/or counseling patient: Coding Level of Care Code 65598 SUB INP/OBS CARE 2/35MIN Diagnoses Aspiration pneumonia J69.0 Chest x-ray abnormality R93.89 Chronic hypoxic respiratory failure, on home oxygen therapy J96.11; Z99.81 History of influenza Z87.09 Weakness R53.1 Acute on chronic hypoxic respiratory failure J96.21 Watery diarrhea R19.7 Shortness of breath R06.02
--- NOTE | 2025-01-10 16:50 | Hospitalist Progress Note ---
Date of Service January 10, 2025 Assessment & Plan (1) Acute on chronic hypoxic respiratory failure: (2) Pneumonia: (3) COPD (chronic obstructive pulmonary disease): (4) Emphysema lung: (5) Hypertension: (6) BPH with obstruction/lower urinary tract symptoms: (7) Mild cognitive impairment: (8) ZHANE (obstructive sleep apnea): Plan per previous hospitalist notes with addendum: This is an 84yo M with PMH of PMH of COPD, chronic respiratory failure with hypoxia on baseline O2 of 2 L, obstructive sleep apnea, HTN, GERD, lumbar degenerative disc disease, B12 deficiency, overactive bladder, BPH, mild cognitive impairment who presents to the hospital with fever and cough for past few days and was found to have acute on chronic hypoxic resp failure in setting of PNA. Sepsis Acute on chronic hypoxic respiratory failure T: 39 C, WBC 13.27, procal 0.90 with PNA meeting sepsis criteria CXR right midlung and patchy right greater than left bibasilar opacities suggestive of pneumonia. Severe emphysema. Cardiomegaly without overt pulmonary edema Resp viral panel negative on admission, saturating 93% on 7 L non-rebreather 01/10 gradually weaned off O2, currently on 4 L of O2 Baseline is 3 L At home Blood cultures: Negative Urine culture: Negative Sputum culture: Negative Last day of antibiotics today Evaluated by pulmonary service Continue to use incentive spirometry and flutter valve Anticipate discharge to home tomorrow COPD Not wheezing on exam,prednisone not given Demand ischemia trop 54, 69, 51 echo: Left ventricular wall motion is normal, EF 60 to 65%, mild concentric LVH, grade 1 diastolic dysfunction Diarrhea C. difficile negative Imodium as needed resolved Recent fall with multiple L sided rib fractures Healing, pain controlled with PRN Tramadol and Tylenol, lidocaine patch, Voltaren gel HTN Continue Losartan and Amlodipine MCI (mild cognitive impairment) Continue Donepezil Aortic mural thrombus Noted on CT during November admission. Not an indication for anticoagulation benefit from ASA 81mg po daily? has history of gastritis and esophagitis on EGD 2016 further work up and management as outpatient BPH Continue Tamsulosin and Finasteride ZHANE CPAP HS with O2 DVT Ppx: SQ Lovenox Code status: FULL PCP: Raghu Dispo: lives at home PT/OT eval: recommend to return home anticipate d/c home tomorrow Admission and Anticipated Discharge Date Admission Date: January 03, 2025 Subjective follow-up for pneumonia, acute on chronic hypoxic respiratory failure Seen resting in bed, comfortable, on 4 L of O2 via nasal cannula States he feels weak again today Breathing is the same as yesterday, no shortness of breath No cough No other new symptoms Review of Systems Review of Systems: all noted and negative except for above Physical Exam Physical Exam: General- oriented x 3, not in distress, speaks in sentences with no effort or accessory muscle use Eyes- anicteric Neck- no JVD Lungs- mild rales at the right base, no wheezing Heart- normal rate, regular rhythm; no murmurs Abdomen- normal bowel sounds, nondistended, soft, nontender Extremities- no pretibial edema, no calf tenderness Neuro- alert, oriented x 3; no gross focal neurologic deficits Skin- warm & dry Results & Data Results & Data Vital Signs (Past 12 Hours) Vital Signs Temp Pulse Pulse Pulse Resp BP Pulse Ox 01/10/25 15:40 68 01/10/25 15:26 36.7 C 72 20 115/64 90 01/10/25 14:00 01/10/25 12:54 71 18 94 01/10/25 10:58 36.9 C 75 16 111/72 93 01/10/25 09:06 01/10/25 09:05 89 01/10/25 07:38 36.9 C 80 21 126/69 93 01/10/25 07:21 70 18 94 Pulse Ox O2 Del Method O2 Del Method O2 Flow Rate O2 Flow Rate 01/10/25 15:40 01/10/25 15:26 Nasal Cannula 4 01/10/25 14:00 93 Nasal Cannula 4 01/10/25 12:54 Nasal Cannula 4 01/10/25 10:58 Nasal Cannula 4 01/10/25 09:06 Nasal Cannula 4 01/10/25 09:05 01/10/25 07:38 CPAP 01/10/25 07:21 CPAP 3 all noted and reviewed including below (2) Pneumonia Laterality: right Lung location: unspecified part of lung Pneumonia type: due to unspecified organism Qualified Code(s): J18.9 - Pneumonia, unspecified organism (3) COPD (chronic obstructive pulmonary disease) COPD type: unspecified COPD Qualified Code(s): J44.9 - Chronic obstructive pulmonary disease, unspecified
[2025-01-11 10:51] VITALS: TEMP 98.2
[2025-01-11 12:31] VITALS: RESP 18; O2SAT 95
--- NOTE | 2025-01-11 14:11 | Discharge Summary ---
Date of Service January 11, 2025 Admission HPI Per Admitting Provider This is an 84yo M with PMH of PMH of COPD, chronic respiratory failure with hypoxia on baseline O2 of 3 L, obstructive sleep apnea, HTN, GERD, lumbar degenerative disc disease, B12 deficiency, overactive bladder, BPH, mild cognitive impairment who presents to the hospital with fever and cough for past few days. Was admitted to our service for acute on chronic hypoxia in setting of Flu A, COPD. He had a fall preceding last admission and fractured multiple left sided ribs. Rib fracture pain is being treated with tramadol, lidocaine patch and Tylenol. 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 Was discharged home on remainder of doxycycline course, Tamiflu, prednisone taper. Seen by Dr. Krishnamurthy in follow up on 12/12 and referred to outpatient PT. Has been feeling more weak for past few days. noted his oxygen levels were low despite his baseline 3L and he wasn't able to ambulate, so brought him to ED for further evaluation. Feeling congested but no more of a cough than usual. Has been taking mucinex twice a day. No CP, SOB, N/V, abd pain, dysuria, diarrhea or constipation. Does not use his walker in the house but does when out ambulating. Admission Exam Per Admitting Provider GENERAL APPEARANCE: AxOx4, fatigued appearing gentleman no acute distress. HEENT: NC, AT. MMM. EOMI, clear conjunctiva, oropharynx clear. NECK: Supple without lymphadenopathy. No stiffness or restricted ROM. HEART: Normal rate and regular rhythm, normal S1/S1, no m/r/g LUNGS: rhonchi bilaterally ABDOMEN: Soft, nontender, nondistended with good bowel sounds heard. BACK: No CVAT, no obvious deformity. EXTREMITIES: Without cyanosis, clubbing or edema. NEUROLOGICAL: Grossly nonfocal. Alert and oriented, moving all 4 extremities. CN not formally tested but appear grossly intact Skin: Warm and sweaty Principal Diagnosis Acute on chronic hypoxic respiratory failure Pneumonia Discharge Exam General- oriented x 3, not in distress, speaks in sentences with no effort or accessory muscle use Eyes- anicteric Neck- no JVD Lungs- mild rales at the right base, no wheezing Heart- normal rate, regular rhythm; no murmurs Abdomen- normal bowel sounds, nondistended, soft, nontender Extremities- no pretibial edema, no calf tenderness Neuro- alert, oriented x 3; no gross focal neurologic deficits Skin- warm & dry Discharge Data Allergies Allergy/AdvReac Type Severity Reaction Status Date / Time No Known Drug Allergies Allergy NKDA Verified 04/12/24 16:29 Consultations 01/03/25 15:01 ED Decision to Admit Stat 01/05/25 11:33 Consult Pulmonology Routine Ordered Studies 01/06/25 11:11 CT angio chest PE protocol Stat FINDINGS: No pulmonary emboli are identified. Size of the heart is within normal limits. There is a trace pericardial effusion. No pneumothorax is present. There is a trace right pleural effusion. Upper lobe predominant emphysema is again noted. Extensive right lower lobe airspace opacity with foci of consolidation is noted. Mild airspace opacities within the right upper and right middle lobes are present. There is no central obstructing mass. Dependent airspace opacities within the left lung favor atelectasis. There is no cavitation. Right hilar adenopathy has developed since CT of March 01, 2024. A few prominent mediastinal lymph nodes have also increased in size. IMPRESSION: 1. No pulmonary emboli identified. 2. Extensive right lower lobe airspace opacity with foci of consolidation consistent with pneumonia. Mild airspace opacities within the right upper and right middle lobes. A chest CT in 3 months to ensure resolution is recommended. 3. Right hilar and mediastinal lymphadenopathy which has developed since chest CT of March 01, 2024. This is likely reactive however should be assessed on follow-up CT to ensure resolution. 4. Emphysema. 5. Small right pleural effusion. Hospital Course (1) Acute on chronic hypoxic respiratory failure: (2) Pneumonia: (3) COPD (chronic obstructive pulmonary disease): (4) Emphysema lung: (5) Hypertension: (6) BPH with obstruction/lower urinary tract symptoms: (7) Mild cognitive impairment: (8) ZHANE (obstructive sleep apnea): Plan This is an 84yo M with PMH of PMH of COPD, chronic respiratory failure with hypoxia on baseline O2 of 2 L, obstructive sleep apnea, HTN, GERD, lumbar degenerative disc disease, B12 deficiency, overactive bladder, BPH, mild cognitive impairment who presents to the hospital with fever and cough for past few days and was found to have acute on chronic hypoxic resp failure in setting of PNA. Sepsis Acute on chronic hypoxic respiratory failure T: 39 C, WBC 13.27, procal 0.90 with PNA meeting sepsis criteria CXR right midlung and patchy right greater than left bibasilar opacities suggestive of pneumonia. Severe emphysema. Cardiomegaly without overt pulmonary edema Resp viral panel negative on admission, saturating 93% on 7 L non-rebreather gradually weaned off O2, currently on 4 L of O2 Baseline is 3 L At home, per pulmonary ok for 4L at rest and 4-6 Lw/ exertion Blood cultures: Negative Urine culture: Negative Sputum culture: Negative Finished antibiotic course Evaluated by pulmonary service Continue to use incentive spirometry and flutter valve COPD Not wheezing on exam,prednisone not given Demand ischemia trop 54, 69, 51 echo: Left ventricular wall motion is normal, EF 60 to 65%, mild concentric LVH, grade 1 diastolic dysfunction Diarrhea C. difficile negative Imodium as needed resolved Recent fall with multiple L sided rib fractures Healing, pain controlled with PRN Tramadol and Tylenol, lidocaine patch, Voltaren gel HTN Continue Losartan and Amlodipine MCI (mild cognitive impairment) Continue Donepezil Aortic mural thrombus Noted on CT during November admission. Not an indication for anticoagulation benefit from ASA 81mg po daily? has history of gastritis and esophagitis on EGD 2016 further work up and management as outpatient BPH Continue Tamsulosin and Finasteride ZHANE CPAP HS with O2 PCP: Dr. Krishnamurthy Dispo: lives at home PT/OT eval: recommend to return home Total Time Total Time Spent Total Time Spent (In Minutes): 40 Discharge Plan Discharge Items Patient Disposition: Home - Self-Care Reason For Visit: ACUTE ON CHRONIC HYPOXIC RESP FAILURE Discharge Diagnosis: Acute on chronic hypoxic respiratory failure Pneumonia Activity: Per Instructions section Non-emergency contact: Primary Care Provider, Specialist and Academic Coach Call non-emergency contact if: you have any medication questions and your symptoms worsen Follow-up/Referrals: Juarez Del Rosario MD [Physician] - 03/15/25 9:45 am Teofilo Krishnamurthy DO [Primary Care Provider] - (The office will call you with a follow up appointment.) Diet: Regular Diet Texture: Easy to Chew Addtl Attending Provider Instructions: Follow up with your primary care doctor and odd bundle worker. You have finished antibiotic treatment while in the hospital. You will need a follow up chest X-ray in 2-4 weeks and follow up with your lung doctor, Dr. Del Rosario. It is recommended that you use suppl. oxygen at 4L at rest and 4-6 L with exertion. Pending Studies at Discharge: No Stand-Alone Forms: My [facility], Smoking Cessation Medications and DC Order Prescriptions: New Advanced Probiotic 625 mg (10 billion cell) Capsule 1 cap PO DAILY Qty: 7 0RF guaifenesin [Mucinex] 600 mg Tablet Extended Release 12hr 1,200 mg PO Q12 5 Days Qty: 20 0RF Continued (DME) CPAP Supplies Misc See Rx Instructions .MEDSUPPLY Qty: 1 0RF Rx Instructions: CPAP supplies/Mask,Tubing, filters, HeadGear, Water Chamber/ and any other needed CPAP supplies. Lifetime 99 Trelegy Ellipta 100-62.5-25 mcg blister with device 1 inh inhalation DAILY Qty: 3 0RF (DME) Portable Oxygen Misc See Rx Instructions .Route Qty: 1 0RF Rx Instructions: Home oxygen concentrator with portability at 3 L/min via nasal cannula. Length of need is 99 years. losartan 25 mg tablet 25 mg PO QAM ascorbic acid (vitamin C) 500 mg tablet 500 mg PO DAILY Rx Instructions: OTC unable to verify potassium citrate 10 mEq (1,080 mg) tablet extended release 10 meq PO TID Benefiber Healthy Shape 5 gram/7.4 gram powder 4 gm PO HS Rx Instructions: OTC unable to verify diclofenac sodium 1 % gel 2 gm TOP QID PRN (Reason: Pain) Rx Instructions: OTC unable to verify polyethylene glycol 3350 [Miralax] 17 gram/dose powder 17 gm PO HS Rx Instructions: OTC unable to verify omeprazole 20 mg capsule,delayed release(DR/EC) 20 mg PO DAILY tamsulosin 0.4 mg capsule 0.4 mg PO DAILY Qty: 90 3RF finasteride 5 mg tablet 5 mg PO DAILY Qty: 90 3RF gabapentin 100 mg capsule 100 mg PO TID Rx Instructions: Take am, noon & hs amlodipine 5 mg tablet 5 mg PO DAILY donepezil 10 mg tablet 10 mg PO HS cyanocobalamin (vitamin B-12) [Vitamin B-12] 1,000 mcg Tablet 1,000 mcg PO DAILY Rx Instructions: OTC unable to verify Calcium 600 + D(3) 600 mg-5 mcg (200 unit) Capsule 1 cap PO DAILY Rx Instructions: OTC unable to verify fluoride (sodium) 1.1 % paste 1 applic PO DAILY cholecalciferol (vitamin D3) [Vitamin D3] 50 mcg (2,000 unit) Tablet 50 mcg PO DAILY Rx Instructions: OTC unable to verify mirtazapine 7.5 mg tablet 7.5 mg PO HS tramadol 50 mg tablet 50 mg PO Q8H PRN (Reason: severe pain (scale score 7-10)) Qty: 20 0RF Discontinued guaifenesin [Mucinex] 600 mg Tablet Extended Release 12hr 600 mg PO BID 5 Days Qty: 0 0RF Rx Instructions: OTC unable to verify Unable to verify OTC meds at this date/time. Discharge Orders: Discharge Order (Routine); Ordered 01/11/25 Ordered By: Angel Burdick Admission Data Admit Date/Time: 01/03/25 15:44 Attending Provider: Angel Burdick Admit Provider: Sully Vidal Primary Care Provider: Teofilo Krishnamurthy Other Providers: Sully Vidal; Vern Cummings; Vijaya Del Rosario Jon parker; Roel Khan; Lyndsay Rose; Sunny Fountain
[2025-01-11 14:40] VITALS: BP 122/68; PULSE 71
== END 2025-01-11 15:13 | disposition home or self-care (01) | DRG 871 ==
LOC: ED 13:37 → 2S 15:44 → SUATTDRO 15:44 → 2S 18:00